=== PATIENT | male | born 1935 | race Caucasian/White ===

== ENCOUNTER → 2020-07-03 10:32 | Outpatient (CLI) | payer MEDICARE, OTHER, SELFPAY ==
--- NOTE | 2020-07-04 14:37 | PFT ---
INTRODUCTION: The patient is a 85-year-old male that presents for pulmonary function studies secondary to a diagnosis of hypoxemia. Respiratory therapy reports good patient effort. Bronchodilators were used during testing. INTERPRETATION: Forced expiration spirometry demonstrates no evidence of a large airways obstructive ventilatory defect. There was a significant response to aerosolized bronchodilators. Spirograms are of good quality and plateau normally. Body plethysmography was performed and reveals a decreased TLC to 49% of predicted. The remainder of the lung volumes are symmetrically reduced. Diffusing capacity by single breath CO is reduced to 57% of predicted. IMPRESSION: Severe restrictive ventilatory impairment with symmetric reduction in diffusing capacity. Incidental bronchodilator response was also noted.
== END ==
PROVIDERS: PCP Family Medicine; Referring Provider Internal Medicine Critical Care Medicine; Visit Provider Internal Medicine Critical Care Medicine
DX: R09.02 Hypoxemia (principal)
CPT/HCPCS: 94060; 94726; 94729

== ENCOUNTER → 2020-07-11 20:05 | Outpatient (CLI) | payer MEDICARE, OTHER, SELFPAY | PROVIDERS: PCP Family Medicine; Referring Provider Internal Medicine Critical Care Medicine; Visit Provider Internal Medicine Critical Care Medicine | DX: G47.10 Hypersomnia, unspecified (principal) | CPT/HCPCS: 95810 ==

== ENCOUNTER 2020-08-01 04:28 | Emergency (ER) | payer MEDICARE, OTHER, SELFPAY ==
[2020-07-26 14:52] VITALS: BMI 40.1
[2020-08-01 04:29] VITALS: BP 157/116; PULSE 72; RESP 16; TEMP 37.1; O2SAT 99; BMI 28.2
--- NOTE | 2020-08-01 04:56 | ED.DCSUM_ITS ---
History of Present Illness Chief Complaint: Nosebleed Informant: Patient Onset: Hours - 1-2 Context: Sudden Onset Timing: Continuous Quality: bleeding Location: left naris, followed by right Current Severity: Severe Maximum Severity: Severe Worsened by: nothing Relieved by: nothing Associated Symptoms: none. no pain or lightheadedness/syncope. Narrative: Patient is on Eliquis for atrial fibrillation, had prominent veins on the inside of the left side of his nose, seen by ENT Dr. Mendiola 3 days ago and had them cauterized due to left sided bleeding off and on for a week. This morning he woke up suddenly bleeding profusely from the nose mostly the left side. Denies any injury. - Past Medical History (1) Persistent atrial fibrillation Status: Chronic (2) Atherosclerotic heart disease of [place] coronary artery without angina pectoris Status: Chronic (3) COPD (chronic obstructive pulmonary disease) Status: Chronic (4) Chronic diastolic (congestive) heart failure Status: Chronic (5) Essential (primary) hypertension Status: Chronic (6) Hyperlipidemia Status: Chronic (7) Obstructive sleep apnea Status: Chronic Past Medical History - Allergies and Home Meds Allergies/Adverse Reactions: Allergies peanut Allergy (Verified 08/01/20 04:36) Itching levofloxacin [From Levaquin] Adverse Reaction (Verified 08/01/20 04:36) Rash Primary Care Physician: Vimal Mendiola MD [STAFF PHYSICIAN] - 2 Days (Call for appointment. Return to the ER for any major bleeding while the nasal packing is in place.) Doctors: Cardiology - Dr. Garcia; ENT - Dr. Mendiola Smoking Status: Never smoker Review of Systems General: Denies: Chills, Fever, Malaise, Sweats ENT: Reports: Rhinorrhea - nosebleed; see HPI. Denies: Sore throat Cardiovascular: Denies: Chest pain, Palpitations Respiratory: Denies: Dyspnea, Dyspnea on exertion Gastrointestinal: Denies: Abdominal pain, Nausea, Vomiting, Diarrhea Musculoskeletal: Reports: Swelling - BLE chronic. Denies: Extremity Pain Physical Exam Vital Signs/Narrative: Vital Signs Temp Pulse Resp BP Pulse Ox 08/01/20 04:29 98.7 F 72 16 157/116 H 99 Inital Vital Signs reviewed: Yes General: Well nourished, Well developed, No Acute Distress Head: Normocephalic, Atraumatic Eyes: Perrl, EOMI ENT: Moist mucous membranes, Nasal congestion, - - Moderate active bleeding from both sides of nose with large clots emanating from the left side. Lots of blood present posterior oropharynx. Neck: Supple, Nontender Respiratory: No distress Extremities: Nontender, Edema - 2+ BLE Skin: Normal color, No Trauma Neurological: Alert, Oriented x3, Cranial nerves II-XII grossly intact, Normal Strength, Normal Sensation, Normal Gait Psychological: Normal affect, Normal Mood Diagnostic/Tx/Re-eval Laboratory Tests 08/01/20 Range/Units 05:15 WBC 7.6 (4.4-11.0) K/mm3 RBC 4.51 L (4.6-6.2) M/mm3 Hgb 13.0 (13.0-16.5) g/dL Hct 39.4 L (40-54) % MCV 87.4 (80-94) fL MCH 28.8 (27.0-32.0) pg MCHC 33.0 (32-36) g/dL RDW Std Deviation 46.3 H (35.1-43.9) fl RDW Coeff of Armani 14.5 (11.6-14.6) % Plt Count 250 (150-450) K/mm3 MPV 10.1 (6.2-12.0) fl - Medical Decision Making Procedure note for epistaxis care: Attempted to get premixed Marlena solution which contained anesthetic and vasoconstrictor, however we did not have any prepared in pharmacy could send it in half an hour. Therefore we canceled that and used oxymetazoline instead, soaked in the nasal pledget, inhaled up both nares, and the pledget was placed in the left side after extensive work was done manually removing blood clots from the left side, and having the patient blow until he was able to remove everything and move air through both sides. After this, bleeding was significantly slowed and clearly just coming from the left side as there was no active bleeding from the right side which remained patent and without a nasal pledget. After letting this sit for about 10 minutes, the pledget was removed and a 5.5 cm rapid Rhino was inserted, and inflated with 8 cc of saline. Patient tolerated, no complications, good hemostasis obtained. Patient was observed for a total of an hour and had no recurrent bleeding. No posterior oropharyngeal blood after rinsing with water. Blood counts as above, stable as are his vital signs. Discussed reasons to return and follow-up with ENT. At this time I recommended him continue to take his Eliquis until he is told otherwise by his coffee machine technician and/or public safety officer. ED Disposition - Plan for ED Patient: Disposition: Home or Assisted Living Diagnosis: Acute anterior epistaxis Instructions: ED Epistaxis (Adult) Referrals: Vimal Mendiola MD [STAFF PHYSICIAN] - 2 Days (Call for appointment. Return to the ER for any major bleeding while the nasal packing is in place.)
[2020-08-01 05:20] LABS: Hematocrit 39.4 % (40-54); Mean Corpuscular Hgb 28.8 pg (27.0-32.0); Mean Corpuscular Volume 87.4 fL (80-94); Mean Platelet Vol. 10.1 fl (6.2-12.0); Platelet Count 250 K/mm3 (150-450); RBC Distribution Width CV 14.5 % (11.6-14.6); RBC Distribution Width SD 46.3 fl (35.1-43.9); Red Blood Count 4.51 M/mm3 (4.6-6.2); White Blood Count 7.6 K/mm3 (4.4-11.0)
[2020-08-01 05:25] VITALS: RESP 18
[2020-08-01] MEDS: Oxymetazoline 0.05% 1 SPRAY SPRAY.BTL 2 SPRAY NASAL (05:31)
== END 2020-08-01 06:23 | disposition home or self-care (01) ==
PROVIDERS: Emergency Provider Emergency Medicine; PCP Family Medicine
DX: R04.0 Epistaxis (principal); I48.19 Other persistent atrial fibrillation; I25.10 Atherosclerotic heart disease of native coronary artery without angina pectoris; J44.9 Chronic obstructive pulmonary disease, unspecified; I11.0 Hypertensive heart disease with heart failure; I50.32 Chronic diastolic (congestive) heart failure; E78.5 Hyperlipidemia, unspecified; Z79.02 Long term (current) use of antithrombotics/antiplatelets; Z79.899 Other long term (current) drug therapy
CPT/HCPCS: 30903; 85027; 99282

== ENCOUNTER → 2020-08-09 06:52 | Outpatient (CLI) | payer MEDICARE, OTHER, SELFPAY ==
[2020-07-26 14:52] VITALS: BMI 40.1
[2020-08-01 04:29] VITALS: BMI 28.2
[2020-08-09 10:51] LABS: Anion Gap 4 (5-15); BUN 22 mg/dL (7-18); BUN/Creat Ratio 21.2 RATIO (10-20); Calcium,Total 9.1 mg/dL (8.5-10.1); Chloride 101 mmol/L (98-107); Creatinine, Serum 1.04 mg/dL (0.70-1.30); EST Glomerular Filtration Rate 72 mL/min (>60); Est Glom Filt Rate - Afr Amer 88 mL/min (>60); Glucose 116 mg/dL (74-106); Potassium 4.2 mmol/L (3.5-5.1); Sodium Level 133 mmol/L (136-145)
--- NOTE | 2020-08-09 18:39 | STRESSREP ---
Stress Test Report Pharmacologic myocardial perfusion stress test. 85-year-old man with a history of hypertension, coronary calcification and heart failure. Stress protocol: Resting EKG demonstrates atrial fibrillation with a controlled ventricular response rate of 71 bpm. Resting blood pressure is 140/88 mmHg. 0.4 mg of regadenoson was infused per usual protocol followed by rapid intravenous saline flush injection continuous EKG monitoring was performed. The maximum heart rate attained was 82 bpm which was 59% of max impacted heart rate the maximum workload was 1 metabolic equivalent. At rest there were no ST or T wave changes noted to suggest abnormal flow reserve at peak infusion nonspecific ST-T wave changes were noted with no meet the criteria for abnormal flow reserve. The final blood pressure was 110/80 mmHg. Myocardial perfusion protocol. 14.8 mCi of technetium 99m sestamibi was injected at rest. 0.4 mg of regadenoson was infused per usual protocol. At peak infusion 44.9 mCi of technetium 99m sestamibi was injected stress images were obtained stress and rest images were reconstructed and compared in the short axis vertical long horizontal long axis. Gated images were also obtained Perfusion SPECT analysis: Review of the stress images demonstrate a small area in the apex with reduced perfusion on the stress images with improvement on the resting images. The above is suggestive of apical ischemia present. The rest of the masters appear to be normally perfused. Gated SPECT analysis: The gated ejection fraction is 42%. Conclusion: Abnormal pharmacologic myocardial perfusion stress test with evidence of apical ischemia. Mildly reduced left ventricular systolic function. Atrial fibrillation persistent.
== END ==
PROVIDERS: PCP Family Medicine; Referring Provider Internal Medicine Cardiovascular Disease; Visit Provider Internal Medicine Cardiovascular Disease
DX: I25.10 Atherosclerotic heart disease of native coronary artery without angina pectoris (principal); I48.19 Other persistent atrial fibrillation; I50.32 Chronic diastolic (congestive) heart failure; I48.91 Unspecified atrial fibrillation
CPT/HCPCS: 36415; 78452; 80048; 93017; A9500; A4216; J2785

== ENCOUNTER 2020-08-17 06:30 | Day surgery (SDC) | payer MEDICARE, OTHER, SELFPAY ==
[2020-08-14 15:05] LABS: Absolute Lymphocyte Count 0.87 X10^3/uL (0.83-4.51); Basophil# 0.09 X10^3/uL; Basophil% 1.6 % (0-1); Eosinophil# 0.16 X10^3/uL; Eosinophils% 2.8 % (0-5); Hematocrit 35.3 % (40-54); Hemoglobin 11.1 g/dL (13.0-16.5); Lymphocyte # 0.87 X10^3/ul (4.0); Lymphocyte % 15.2 % (19-41); Mean Corp Hgb Conc 31.4 g/dL (32-36); Mean Corpuscular Volume 89.1 fL (80-94); Mean Platelet Vol. 10.1 fl (6.2-12.0); Monocyte# 0.63 X10^3/uL; NRBC Flagged by Analyzer 0 % (0-5); Neutrophil # 3.97 X10^3/uL (2.7-7.7); Neutrophil % 69.1 % (47-70); Platelet Count 241 K/mm3 (150-450); RBC Distribution Width CV 14.6 % (11.6-14.6); RBC Distribution Width SD 47.4 fl (35.1-43.9); Red Blood Count 3.96 M/mm3 (4.6-6.2); White Blood Count 5.7 K/mm3 (4.4-11.0)
[2020-08-14 15:10] LABS: International Normalized Ratio 1.2; Prothrombin Time (Protime)PT. 14.5 SECONDS (11.7-14.9)
[2020-08-14 15:11] LABS: Partial Thromboplast Time 29.4 Seconds (24.1-36.2)
[2020-08-14 15:42] LABS: Anion Gap 7 (5-15); BUN 22 mg/dL (7-18); BUN/Creat Ratio 22.3 RATIO (10-20); Calcium,Total 8.8 mg/dL (8.5-10.1); Chloride 103 mmol/L (98-107); Creatinine, Serum 0.99 mg/dL (0.70-1.30); EST Glomerular Filtration Rate 77 mL/min (>60); Est Glom Filt Rate - Afr Amer 93 mL/min (>60); Glucose 71 mg/dL (74-106); Potassium 4.3 mmol/L (3.5-5.1); Sodium Level 135 mmol/L (136-145)
[2020-08-16 08:37] VITALS: BMI 40.1
[2020-08-17] VITALS (16 sets, daily range): BP systolic 108–146; BP diastolic 70–96; PULSE 53–91; RESP 18–20; TEMP 36.1–36.7; O2SAT 94–100; BMI 40.1; BMI 40.2
--- NOTE | 2020-08-17 06:39 | HP_ITS ---
HPI HPI History of Present Illness Details: Pleasant 85-year-old man with no previous cardiac history of hypertension, hyperlipidemia, obstructive sleep apnea, coronary calcification who presented to the emergency room at [facility] with shortness of breath leg swelling hypoxia requiring BiPAP. Troponin was done which was unremarkable and a BT [employer] was done which was elevated. He was treated with antibiotics and subsequently discharged. It appears on reviewing the records that he was in atrial fibrillation when he presented there with a rate of approximately 85 bpm and premature ventricular complexes were noted. His echocardiogram then demonstrated biatrial enlargement, and ejection fraction of 50 to 55%. He was getting worse at home and so his took him to see the hospice patient care secretary who started him on a diuretic. He apparently has been short of breath with edema since last January. He is denied any chest pain. He has had no dizziness or diaphoresis near syncope or syncope. His physical exam today is significant for reduced air entry bilaterally, irregular heart rate, and 1+ pitting edema. Intake Vital Signs 07/26/20 Height 5 ft 11 in 07/26/20 Weight: 288 lb 07/26/20 BMI 40.1 07/26/20 BP 130/87 H 07/26/20 Respiration 22 H 07/26/20 Pulse 76 07/26/20 Pulse Oximetry (%) 99 Intake Visit Reasons: Pulm ref'd for CHF Allergies peanut Allergy (Verified 07/26/20 08:30) Itching levofloxacin [From Levaquin] Adverse Reaction (Verified 07/26/20 08:30) Rash Medications Finasteride [Proscar] 5 mg PO DAILY 05/18/14 [History Confirmed 05/18/14] Saw [place] Fruit [Saw [place]] 900 mg PO DAILY 05/18/14 [History Confirmed 05/18/14] atorvastatin 20 mg tablet 20 mg PO DAILY 06/27/20 [History] cholecalciferol (vitamin D3) 25 mcg (1,000 unit) capsule 25 mcg PO DAILY 06/27/20 [History] coenzyme Q10 75 mg capsule See Rx Instructions PO DAILY cap 06/27/20 [History] spironolactone 50 mg tablet 50 mg PO DAILY 06/27/20 [History] vit C 250 mg-E 200 unit-zinc 40 mg-copper 1 jj-dkpidh-ohdins capsule 1 tab PO ONCE cap 06/27/20 [History] lisinopril 10 mg tablet 10 mg PO DAILY 06/29/20 [History Confirmed 06/29/20] apixaban 5 mg tablet 5 mg PO BID #60 tab 07/26/20 [Rx Confirmed 07/26/20] aspirin 81 mg tablet,delayed release 81 mg PO DAILY 07/26/20 [History] furosemide 40 mg tablet 40 mg PO BID #90 tab 07/26/20 [Rx Confirmed 07/26/20] metoprolol succinate 50 mg tablet,extended release 24 hr 50 mg PO DAILY #90 tab 07/26/20 [Rx Confirmed 07/26/20] Ejection fraction %: 50 to 54 [facility] Medical History Atherosclerotic heart disease of [place] coronary artery without angina pectoris (Chronic) Chronic diastolic (congestive) heart failure (Chronic) Essential (primary) hypertension (Chronic) Hyperlipidemia (Chronic) COPD (chronic obstructive pulmonary disease) (Chronic) Obstructive sleep apnea (Chronic) Hypersomnia (Chronic) Hypoxia (Chronic) BPH with urinary obstruction (Chronic) Diverticulitis (Chronic) Hiatal hernia (Chronic) Leg swelling (Chronic) Renal cyst (Chronic) Surgical History History of cataract surgery (Resolved) History of colonoscopy with polypectomy (Resolved) History of orchiectomy (Resolved) History of transurethral resection of prostate (Resolved) Family History Other No pertinent family history Social History (Updated 07/26/20 @ 15:[address] Fabio Garcia MD) Smoking Status: Never smoker ROS Const Const: Negative for fatigue, weakness, headache(s), frequent falls, difficulty sleeping or excessive sweating Eyes Eyes: Negative for loss of peripheral vision, transient loss of vision, blurry vision, double vision or tunnel vision ENT ENT: Positive for Nosebleed/epistaxis (10 nose bleeds since Jun 25 2020); negative for headache(s), dizziness or balance problems Cardio Chest Pain: No Palpitations: No Edema: Bilateral (BLE edema drom knees down 1+ pitting) Muscle aches with walking: None Resp Respiratory: Positive for SOB with activity and wheezing; negative for SOB at rest, SOB orthopnea\SOB lying down, Cough or paroxysmal nocturnal dyspnea GI GI: Negative nausea, vomiting, heartburn or black,tarry stools : Negative for hematuria Musc Musc: Negative for muscle aches/ myalgia, muscle weakness, joint pain or balance problems Skin Skin: Negative non-healing lesions, rash or unusual bruising Neuro Neuro: Negative for dizziness, lightheadedness, near syncope, syncope, orthostatic symptoms, frequent falls, headache(s), weakness, blurry vision, double vision or lack of coordination [place] Hematologic/Lymphatic: Negative for easy bleeding or easy bruising Endo Endo: Negative for fatigue, excessive sweating or increased thirst/drinking Psych Psych: Negative for anxiety or depression Allergy Allergy/Immunology: Negative for hives, Negative for rash Cardiology Exam Const Appearance: cooperative, healthy appearing, no acute distress, well developed and well groomed Nutritional Appearance: average body habitus and well nourished Orientation: alert, awake and oriented x3 Head Head: normal to inspection, normocephalic and atraumatic Ears: hearing grossly normal bilaterally and external ears normal Nose: external nose normal, nares normal, nasal mucous membranes and turbinates normal, septum normal, no nasal discharge Face and Sinus: face symmetric Mouth: oral mucosae normal, tongue normal, oropharynx normal and moist mucous membranes Teeth and gingiva: dentition normal Throat: posterior oropharynx normal, tonsils normal and uvula midline Eyes General: appearance normal, both eyes and all related structures Eyelids: eyelids normal Conjunctivae: conjunctivae normal Pupils: PERRL, normal by confrontation and accommodation normal EOM: EOM intact bilaterally Neck Neck: normal visual inspection, trachea midline and no JVD JVD: +5 Carotids: normal carotid upstroke and bounding pulses Chest Chest inspection: normal inspection of the chest, symmetric chest movement and normal respiratory effort Auscultation: Bilateral: Clear to Auscultation Cardio Palpation: normal PMI Rate: regular rate Rhythm: irregular rhythm Heart sounds: S1 normal, S2 normal and normal, physiologic split S2; negative rub, gallop or murmur GI GI: normal to inspection, soft, no hepatosplenomegaly and bowel sounds present Neuro General: alert, awake, oriented x3, gait normal, moves all extremities and no focal sensory deficit Skin Skin: no rashes or lesions noted Extremities Pulses: Normal: Right Femoral Pulse, Left Femoral Pulse, Right Dorsalis Pedis Pulse, Left Dorsalis Pedis Pulse, Right Posterior Tibial Pulse, Left Posterior Tibial Pulse, Right Radial Pulse, Left Radial Pulse Lower Extremity Edema: +2: Bilateral Musculoskel Musculoskeletal: No joint tenderness Psych Psychological: normal affect Assessment & Plan 1. Persistent atrial fibrillation I48.19 Plan He appears to be in persistent atrial fibrillation. He was in this rhythm when he presented to [facility]. His ventricular response rate is not very well controlled I would recommend that we add a beta-parag with Toprol-XL 50 mg a day to his regimen as well as anticoagulating him with Eliquis 5 mg twice a day. Orders Orders: Basic Metabolic Profile (BMP) 2 Weeks 2. Chronic diastolic (congestive) heart failure I50.32 Plan He does have evidence of diastolic heart failure. His last echocardiogram apparently demonstrated preserved ejection fraction though it was a suboptimal study. My recommendation will be to increase his diuretics with his Lasix to 40 mg twice a day, continue the spironolactone, obtain a chemistry profile in a week to 2 weeks. Salt restriction has also been emphasized. Orders Orders: 12 Lead EKG performed by [facility] Today Basic Metabolic Profile (BMP) 2 Weeks 3. Essential (primary) hypertension I10 Plan He does have a history of hypertension. I would like us to continue the lisinopril and add Toprol-XL 50 mg a day to his regimen. Orders Orders: 12 Lead EKG performed by [facility] Plan Detail Other Orders Orders: 12 Lead EKG performed by [facility] E78.5, I25.10 Nuclear Stress Test - Chemical 2 Weeks I25.10 Other Medications New: furosemide (Lasix) 40 mg PO BID 90 tabs 4RF metoprolol succinate ER (Toprol XL) 50 mg PO DAILY 90 tabs 3RF apixaban (Eliquis) 5 mg PO BID 60 tabs 3RF Discontinued: furosemide Discontinued Reason: Order Changed 20 mg PO BID Follow Up 1 Month ([facility]) Coding Level of Care Code Off vis,new,level 5 Diagnoses Persistent atrial fibrillation I48.19 Chronic diastolic (congestive) heart failure I50.32 Essential (primary) hypertension I10 Coding Level of Care Code Off vis,new,level 5 Diagnoses Persistent atrial fibrillation I48.19 Chronic diastolic (congestive) heart failure I50.32 Essential (primary) hypertension I10 Supplemental Info Supplemental Information Diagnostics Electrocardiogram 07/26/20 Pulmonary Pulmonary Function Test 07/04/20
--- NOTE | 2020-08-17 08:38 | CL.D_ITS ---
Patient Name: SCARLETT STEVENS Study Date: 08/17/2020 Performing: Fabio Garcia MD Ht: 70.87 inches 180 cm : 1935 Wt: 288.81 lbs 131 kg Age: 85 Gender: male BSA: 2.46 PROCEDURE(S) PERFORMED [id number]-FZO/COR/LV [id number] W OR WO PTCA, SINGLE CORONARY ARTERY CLINICAL PROFILE AND INDICATIONS NYHA class 1, Shortness of breath is the anginal equivalent Indications: Suspected CAD Heart Failure: None Stress/Imaging Date: 08/07/20ress Test with SPECT MPI: Positive Intermediate Risk CAD Presentations: No Sxs, no angina. CONCLUSIONS Moderate left main disease, moderate LAD disease, and high-grade mid right coronary artery stenosis w ith preserved ejection fraction RECOMMENDATIONS Referred for immediate PCI DESCRIPTION OF PROCEDURE The patient arrived to the procedure lab. The risks and benefits of the procedure as well as a full d escription of our services here and current unavailability of surgical backup were fully explained to the patient and/or their significant other prior to the catheterization. The Timeout was completed, verifying the correct patient and procedure. The patient's procedural site was prepped and draped in the usual fashion. Local anesthetic was given subcutaneously to right radial region with Lidocaine 2% . Using a modified Seldinger technique, arterial access was obtained via the right radial artery, a 6 Fr sheath was inserted. Left Coronary Artery selective angiography was performed in multiple views u sing a 5 Fr. 4.0 [place] catheter. Right Coronary Artery selective angiography was then performed in mu ltiple views using a 5 Fr. 4.0 [place] catheter. Left Ventriculography was performed in MOYA projection using a 5 Fr. Pigtail catheter. LV to AO pullback pressures were then recorded.The arterial sheath was pulled and a TR Band was applied for hemostasis CORONARY ANGIOGRAPHY DOMINANCE: Right Dominant LEFT HEART ASSESSMENT Left Ventricular Ejection Fraction: by LV Gram 55 % Normal LV wall motion Normal Left Ventricular systolic function LEFT MAIN: Mild calcification, 30 % Stenosis LEFT ANTERIOR DESCENDING ARTERY: Moderate luminal irregularities up to 50% CIRCUMFLEX ARTERY: Mild luminal irregularities less than 30% RAMUS: Mild luminal irregularities less than 30% RIGHT CORONARY ARTERY: MID RCA: 95 % Stenosis COMPLICATIONS No Complications PROCEDURE MEDICATIONS Fentanyl 50 mcg IV Versed 1 mg IV Oxygen: 2 L/min via nasal cannula Brilinta 180 mg PO @ 08/17/2020 08:20:06 Heparin diluted in 23cc Heparinized saline. Patient given 10cc IA of this solution. 08/17/2020 08:03: 05 Heparin 9000 unit(s) IV 08/17/2020 09:03:55 Verapamil 2.5mg, Ntg 100mcgs, 2000 units of Heparin diluted in 23cc Heparinized saline. Patient give n 10cc IA of this solution. 08/17/2020 08:03:05 IV Bolus: .9 NaCl 250 ml total 08/17/2020 09:27:43 SUMMARY OF HEMODYNAMIC DATA Time AIR REST ECG 07:06:39 AO 98/56 (75) SA 08:02:58 LV 118/11, 13 08:15:24 LV 100/7, 16 08:15:31 LV 108/8, 15 08:16:31 LVp 110/13, 16 08:16:35 AOp 118/65 (90) 08:16:40 Signed By Fabio Garcia MD On 08/24/2020 3:04:44 PM Fabio Garcia MD
[2020-08-17] MEDS: 0.9% Normal Saline 1,000 ML 100 ML IV (09:45)
--- NOTE | 2020-08-17 11:56 | CRPHASE1 ---
Patient Communication Former Patient:: Phase I PHII Cardiac Rehab Discussed with Patient:: Yes Guide to Cardiac Rehab Given to Patient:: Yes Cardiac Rehab Facility Choice List Given to Patient:: Yes Choice Program [facility] CR PHII:: Communication Given to CR Clinical Reimbursement Specialist:: Sushil Devries Phase II Cardiac Rehab:: Yes Sessions:: 36 sessions - 3 days/wk, 12 weeks Risk Factors/Lifestyle Smoking Status: Former smoker Second-Hand Smoke:: No Hx Hypertension: Yes Hx Diabetes Mellitus Type 1: No Hx Diabetes Mellitus Type 2: No Hx Metabolic Disorders: No Hx Dyslipidemia: Yes Hx Obesity: Yes Post-Menopausal: No ETOH: No Caffeine: No Substance Abuse: No Risk Factor for Sedentary Lifestyle: Moderate Risk Family History: Family History (Last Reviewed 07/26/20 @ 15:[address] Fabio Garcia MD) Other No pertinent family history Past Cardiac Illness: CHF, Ejection Fraction, Coronary Artery Disease, Other - A Fib Phase I Education Given On:: Planada, Nutrition, Antiplatelet medication, CHF Issues Affecting Care:: Cognitive, Hearing Knowledge of Condition:: No Learning Preferences: Verbal Cardiac Rehabilitation Info Cardiac Rehabilitation Program Information: Cardiac Rehabilitation is important for patients like you who are recovering from a heart problem. Cardiac rehabilitation programs are recognized as integral to the continued care of the patient with coronary heart disease. The cardiac rehabilitation program is designed to optimize a patient's physical, psychological, and social functioning. Health pediatric critical care nurse work in cardiac rehabilitation programs and assist you with getting the treatments you need to get stronger and healthier - like exercise, healthy eating habits, and medications. Cardiac rehabilitation has been show to help people with heart problems live longer and have better life enjoyment than people who do not go to cardiac rehabilitation. Please contact the Cardiac Rehabilitation Program at [facility] at in two weeks if you have not heard from them.
--- NOTE | 2020-08-17 11:59 | CRPH1.INSTRU ---
General Education CAD and cardiac anatomy and function:: Patient communicates acknowledgment, Family communicates acknowledgment, Needs reinforcement Explanation of diagnoses and procedures:: Patient communicates acknowledgment, Family communicates acknowledgment, Needs reinforcement Sign/Symptoms of OR:: Patient communicates acknowledgment, Family communicates acknowledgment, Family returns demonstration, Needs reinforcement Antiplatelet therapy: Patient communicates acknowledgment, Family communicates acknowledgment, Family returns demonstration, Needs reinforcement Proper use of NTG-SL: Patient communicates acknowledgment, Family communicates acknowledgment, Family returns demonstration, Needs reinforcement Emergency procedures and activation of EMS: Patient communicates acknowledgment, Family communicates acknowledgment, Family returns demonstration, Needs reinforcement Compliance of all prescribed medications: Patient communicates acknowledgment, Family communicates acknowledgment, Family returns demonstration, Needs reinforcement Smoking Patient Nicotine/Smoking Risk Factors Are:: Non-smoker Recommendations Include:: Previous smoker; encourage continued cessation Nicotine/Smoking Response Code:: Patient communicates acknowledgment Dyslipidemia Patient Dyslipidemia Risk Factors Are:: Total Cholesterol, Triglycerides, HDL, LDL Recommendations Include:: Lipid profile not available, Reviewed NCEP/ATP guidelines, Therapeutic Lifestyle Change dietary guidelines Dyslipidemia Response Code:: Patient communicates acknowledgment Overweight/Obesity Patient Overweight/Obesity Risk Factors Are:: Obesity - > or = 30 Recommendations Include:: Weight loss of 5-10%, Reduced calorie diet, Exercise 5-7 times/week Overweight/Obesity:: Patient communicates acknowledgment, Family communicates acknowledgment, Family returns demonstration, Needs reinforcement Hypertension Recommendations Include:: Maintain BP <130/85, DASH dietary guidelines, Decrease/maintain normal body weight, Moderation of ETOH Hypertension:: Patient communicates acknowledgment, Family communicates acknowledgment, Family returns demonstration, Needs reinforcement Sedentary Patient Sedentary Risk Factors Are:: Lack of regular exercise Recommendations Include:: Aerobic exercise 5-7 times/week for 20-30 minutes continuously, Benefits of regular exercise, Discussed home walking program, Monitored Outpatient Cardiac Rehab Sedentary Response Code:: Patient communicates acknowledgment Stress Patient Stress Risk Factors Are:: Patient denies stress as a risk factor Recommendations Include:: Identification of stressors, and assessment of coping skills, Stress management techniques Stress Response Code:: Patient communicates acknowledgment, Family communicates acknowledgment, Needs reinforcement
--- NOTE | 2020-08-17 13:42 | EKG12_ITS ---
Test Reason : ADMITT PCU Blood Pressure : / mmHG Vent. Rate : 061 BPM Atrial Rate : 079 BPM P-R Int : 000 ms QRS Dur : 128 ms QT Int : 476 ms P-R-T Axes : 000 -69 110 degrees QTc Int : 479 ms Atrial fibrillation with premature ventricular or aberrantly conducted complexes Left axis deviation Non-specific intra-ventricular conduction block Nonspecific T wave abnormality Abnormal ECG Confirmed by MEDINA ONTIVEROS, NATALYA ([id number]), market editor JONATHAN YANG ([id number]) on 08/24/2020 7:31:41 AM Referred By: Natalya Garcia Confirmed By:NATALYA GARCIA MD
[2020-08-17] MEDS: CLARIFY ORDER NOTE (16:44)
[2020-08-17] MEDS: Furosemide 40 MG Tablet PO (20:54)
[2020-08-17] MEDS: Atorvastatin Calcium 20 MG Tablet PO (20:54)
[2020-08-17] MEDS: TICAGRELOR 90 MG TABLET PO (20:54)
[2020-08-18 02:50] VITALS: BP 149/74; PULSE 86; RESP 18; TEMP 36.7; O2SAT 99
[2020-08-18 03:00] VITALS: PULSE 72
[2020-08-18 06:19] LABS: Hematocrit 33.9 % (40-54); Mean Corp Hgb Conc 32.4 g/dL (32-36); Mean Corpuscular Hgb 28.1 pg (27.0-32.0); Mean Corpuscular Volume 86.7 fL (80-94); Mean Platelet Vol. 9.9 fl (6.2-12.0); Platelet Count 216 K/mm3 (150-450); RBC Distribution Width CV 14.5 % (11.6-14.6); RBC Distribution Width SD 46.4 fl (35.1-43.9); Red Blood Count 3.91 M/mm3 (4.6-6.2); White Blood Count 7.7 K/mm3 (4.4-11.0)
[2020-08-18 06:46] LABS: ALB/GLOB Ratio 0.9 RATIO (0.9-2.4); AST(SGOT) 21 U/L (15-37); Alanine Aminotransfer ALT/SGPT 22 U/L (16-61); Albumin, Serum 3.3 g/dL (3.2-5.0); Alkaline Phosphatase 127 U/L (45-117); Anion Gap 8 (5-15); BUN 19 mg/dL (7-18); BUN/Creat Ratio 19.5 RATIO (10-20); Calcium,Total 8.7 mg/dL (8.5-10.1); Chloride 104 mmol/L (98-107); Creatinine, Serum 0.98 mg/dL (0.70-1.30); EST Glomerular Filtration Rate 78 mL/min (>60); Est Glom Filt Rate - Afr Amer 94 mL/min (>60); Estimated Creatinine Clearance 60.83 ml/min; Globulin 3.6 g/dL (2.2-4.2); Glucose 102 mg/dL (74-106); Protein, Total 6.9 g/dL (6.4-8.2); Sodium Level 134 mmol/L (136-145)
[2020-08-18 07:00] VITALS: PULSE 76
[2020-08-18 07:07] VITALS: O2SAT 98
--- NOTE | 2020-08-18 07:42 | PN.CARD_ITS ---
Subjectve: Patient was seen and evaluated. Appears to be doing well. No complaints. Feels much better this morning. Objective: Vital Signs Temp Pulse Resp BP Pulse Ox 98.1 F 72 18 149/74 H 99 08/18/20 02:50 08/18/20 03:00 08/18/20 02:50 08/18/20 02:50 08/18/20 02:50 Oxygen Delivery Method Room Air Weight: 267 lb 10.259 oz Body Mass Index (BMI) 40.1 Intake and Output for Last 24 Hours 08/16/20 08/17/20 08/18/20 23:59 23:59 23:59 Intake Total 1680 / 1680 120 / 120 Output Total 1050 / 1050 1125 / 1125 Balance 630 / 630 -1005 / -1005 General: Awake, Alert, Oriented x 3 HEENT: PERRL, EOMI, Sclera Non Icteric Neck: Supple, Good ROM, No Lymph Node Enlargement Lungs: Clear to auscultation Cardiovascular: Irregular Rhythm, Normal S1, Normal S2, No Murmurs, No Rubs, No Gallops Vascular: No Carotid Bruits, Normal Femoral Pulses, Normal Radial Pulses, Normal Dorsalis Pedal Pulse, Normal Posterior Tibial Pulses Abdomen: Bowel Sounds Present, Soft, Non Tender, No HSM, No Organomegaly Extremities: No Cyanosis, No Clubbing, No edema Musculoskeletal: No Erythema Neurological: No Focal Motor or Sensory Deficit 08/18/20 06:04: WBC 7.7, RBC 3.91 L, Hgb 11.0 L, Hct 33.9 L, MCV 86.7, MCH 28.1, MCHC 32.4, Plt Count 216, MPV 9.9 08/18/20 06:04: Sodium 134 L, Potassium 4.0, Chloride 104, Carbon Dioxide 22.0, Anion Gap 8, BUN 19 H, Creatinine 0.98, Est GFR (MDRD) Af Amer 94, Est GFR (MDRD) Non-Af 78, BUN/Creatinine Ratio 19.5, Glucose 102, Calcium 8.7, Total Bilirubin 1.30 H Rhythm: EKG: ECHO: Stress Test: Cardiac Cath: PCI: CT Surgery: Holter monitor: EPS: PPM: CXR: Chest CT Scan: Medical Necessity - Tobacco Use Smoking Status: Former smoker Assessment/Plan 1. Status post angioplasty and stenting of the right coronary artery. * Plan will be to discharge patient on aspirin, clopidogrel, Eliquis. We will try and do clopidogrel together with aspirin for at least 6 weeks and then perhaps discontinue aspirin and continue clopidogrel and Eliquis. * Continue other medications * Start cardiac rehabilitation.
--- NOTE | 2020-08-18 08:38 | DCINST_ITS ---
Discharge Diet: Low fat/ Low Cholesterol Lifting Restrictions: 10 pounds and also avoid any pushing or pulling for 3 days after your test. Additional Activity Instructions:: You must have someone drive you home. Do not drive until instructed by your doctor. You must have someone stay with you all night after your test. Rest in bed or on the couch until the next morning. Limit the number of times you go up and down stairs the day of your test. Apply pressure to the puncture site if you sneeze or cough. Call your doctor if your incision/area has: Increased Pain/ Swelling, Increased Redness, Foul Smelling Discharge, Swelling at the incision site Call your doctor if you observe: Fever of 101 or Higher Additional Dressing/Incision Instructions:: Keep the dressing (bandage) on until the next morning. You may then shower, but do not take a tub bath for 5 days after your test. It is normal to have some tenderness and discomfort at the puncture site. Sometimes bruising also occurs. However, if pain, numbness, or coldness occurs below the puncture site (in your leg, toes, arms or fingers) call your doctor at once. You may have a small, marble sized knot at the puncture site. This is normal. Do not rub it. It will go away in 4-6 weeks. Bleeding can occur from the area where the puncture was done. Blood may spurt or drip from the site. If blood spurts, apply pressure right away to stop bleeding and call 911. Although rare, bleeding into the tissue (hematoma) can also occur. If this happens, a large, firm area goose egg under the skin will appear. If any of these occur, lie down as flat as you can and have someone apply firm pressure to the cath site with a gauze pad or a clean washcloth for 10-15 minutes. Call 911 or go to the Emergency Department. Allergies/Adverse Reactions: Allergies peanut Allergy (Verified 08/01/20 04:36) Itching levofloxacin [From Levaquin] Adverse Reaction (Verified 08/01/20 04:36) Rash Medications to take at Discharge Finasteride [Proscar] 5 mg PO DAILY 05/18/14 Saw [place] Fruit [Saw [place]] 900 mg PO DAILY 05/18/14 atorvastatin 20 mg tablet 20 mg PO DAILY 06/27/20 cholecalciferol (vitamin D3) 25 mcg (1,000 unit) capsule 25 mcg PO DAILY 06/27/20 coenzyme Q10 75 mg capsule See Rx Instructions PO DAILY cap 06/27/20 vit C 250 mg-E 200 unit-zinc 40 mg-copper 1 [id number]-ydtzce capsule 1 tab PO DAILY cap 06/27/20 lisinopril 10 mg tablet 10 mg PO DAILY 06/29/20 albuterol sulfate 2.5 mg INHALATION Q4H PRN 07/26/20 apixaban 5 mg tablet 5 mg PO BID #60 tab 07/26/20 aspirin 81 mg tablet,delayed release 81 mg PO DAILY 07/26/20 furosemide 40 mg tablet 40 mg PO BID #90 tab 07/26/20 metoprolol succinate 50 mg tablet,extended release 24 hr 50 mg PO DAILY #90 tab 07/26/20 spironolactone 50 mg tablet 50 mg PO DAILY #90 tab 08/14/20 Clopidogrel Bisulfate [Plavix] 75 mg PO DAILY #90 tab 08/18/20 The following prescriptions were given: Clopidogrel Bisulfate [Plavix] 75 mg PO DAILY #90 tab Transmission Status: Pending to [facility]44 Orders to be completed after discharge: Phase II, Outpatient Cardiac Rehab Location: None Selected Primary Care Physician: Chuck Paulino MD [Primary Care Provider] - Test Results: Test results from this visit will be discussed in further detail at your follow- up appointment, if applicable. Proposed Discharge Date: 08/18/20 Cardiac Rehabilitation Info Cardiac Rehabilitation Program Information: Cardiac Rehabilitation is important for patients like you who are recovering from a heart problem. Cardiac rehabilitation programs are recognized as integral to the continued care of the patient with coronary heart disease. The cardiac rehabilitation program is designed to optimize a patient's physical, psychological, and social functioning. Health home care scheduler work in cardiac rehabilitation programs and assist you with getting the treatments you need to get stronger and healthier - like exercise, healthy eating habits, and medications. Cardiac rehabilitation has been show to help people with heart problems live longer and have better life enjoyment than people who do not go to cardiac rehabilitation. Please contact the Cardiac Rehabilitation Program at [facility] at in two weeks if you have not heard from them.
[2020-08-18 08:50] VITALS: BP 135/73; PULSE 71; RESP 16; TEMP 36.6; O2SAT 98
--- NOTE | 2020-08-18 09:10 | PCS.PANDOC ---
PANDEMIC DOCUMENTATION INITIATED: Date: 08/17/20 Time: 944
[2020-08-18] MEDS: APIXABAN 5 MG TABLET PO (09:20)
[2020-08-18] MEDS: Aspirin E.C. 81 MG Tablet PO (09:20)
[2020-08-18] MEDS: Spironolactone 50 MG Tablet PO (09:20)
[2020-08-18 09:21] VITALS: PULSE 71
[2020-08-18] MEDS: Furosemide 40 MG Tablet PO (09:21)
[2020-08-18] MEDS: Clopidogrel Bisulfate 75 MG Tablet PO (09:21)
[2020-08-18] MEDS: Finasteride 5 MG Tablet PO (09:21)
[2020-08-18] MEDS: Metoprolol(XL)Succ 50 MG Tablet PO (09:21)
[2020-08-18] MEDS: Lisinopril 10 MG Tablet PO (09:21)
--- NOTE | 2020-08-18 09:42 | PHA.DC.MC ---
Pharmacy Service has performed discharge medication reconciliation and counseling for this patient. 1. CLOPIDOGREL 75MG PO DAILY The patient's discharge medication list was reviewed for discrepancies and discrepancies were resolved. Home Medications Finasteride [Proscar] 5 mg PO DAILY 05/18/14 Saw [place] Fruit [Saw [place]] 900 mg PO DAILY 05/18/14 atorvastatin 20 mg tablet 20 mg PO DAILY 06/27/20 cholecalciferol (vitamin D3) 25 mcg (1,000 unit) capsule 25 mcg PO DAILY 06/27/20 coenzyme Q10 75 mg capsule See Rx Instructions PO DAILY cap 06/27/20 vit C 250 mg-E 200 unit-zinc 40 mg-copper 1 qo-pfkmua-tfxbhf capsule 1 tab PO DAILY cap 06/27/20 lisinopril 10 mg tablet 10 mg PO DAILY 06/29/20 albuterol sulfate 2.5 mg INHALATION Q4H PRN 07/26/20 apixaban 5 mg tablet 5 mg PO BID #60 tab 07/26/20 aspirin 81 mg tablet,delayed release 81 mg PO DAILY 07/26/20 furosemide 40 mg tablet 40 mg PO BID #90 tab 07/26/20 metoprolol succinate 50 mg tablet,extended release 24 hr 50 mg PO DAILY #90 tab 07/26/20 spironolactone 50 mg tablet 50 mg PO DAILY #90 tab 08/14/20 Clopidogrel Bisulfate [Plavix] 75 mg PO DAILY #90 tab 08/18/20 The patient was counseled on the following discharge medications and changes in medications for homegoing were reviewed. The Reason for Use, instructions for use, and potential side effects were reviewed for all new medications. The patient's questions regarding all of their medications were answered. The patient was able to verbally demonstrate an understanding of their discharge medications. Patient counseled by pharmacy sales assistant
--- NOTE | 2020-08-18 10:00 | EKG12_ITS ---
Test Reason : AM EKG Blood Pressure : / mmHG Vent. Rate : 082 BPM Atrial Rate : 079 BPM P-R Int : 000 ms QRS Dur : 122 ms QT Int : 442 ms P-R-T Axes : 000 -70 077 degrees QTc Int : 516 ms Atrial fibrillation Left axis deviation Left bundle branch block Abnormal ECG When compared with ECG of 17-AUG-2020 13:42, MANUAL COMPARISON REQUIRED, DATA IS UNCONFIRMED Confirmed by MEDINA ONTIVEROS, FABIO ([id number]), editor dictionary ED CARRION ([id number]) on 08/22/2020 8:50:06 AM Referred By: Fabio Haney Confirmed By:FABIO HANEY MD
--- NOTE | 2020-08-20 16:43 | CL.I_ITS ---
Patient Name: SCARLETT STEVENS Study Date: 08/17/2020 Performing: Miller Devries MD Ht: 71 inches 180 cm : 1935 Wt: 289.2 lbs 131 kg Age: 85 Gender: male BSA: 2.46 PROCEDURE(S) PERFORMED [id number] W OR WO PTCA, SINGLE CORONARY ARTERY CLINICAL PROFILE AND CO-MORBIDITIES Indications: Suspected CAD Heart Failure: None Stress/Imaging Date: 08/07/20 Stress Test with SPECT MPI: Positive Intermediate Risk CAD Presentations: No Sxs, no angina. CONCLUSIONS Successful KARIS to mRCA RECOMMENDATIONS Follow up with Dr. Jose TOVAR Indefinitely. Dual antiplatelet therapy for 1 year DESCRIPTION OF PROCEDURE The patient arrived to the procedure lab. The risks and benefits of the procedure as well as a full d escription of our services here and current unavailability of surgical backup were fully explained to the patient and/or their significant other prior to the catheterization. The Timeout was completed, verifying the correct patient and procedure. The patient's procedural site was prepped and draped in the usual fashion. Local anesthetic was given subcutaneously to right radial region with Lidocaine 2% Using a modified Seldinger technique,arterial access was obtained via the right radial artery, a 6Fr sheath was inserted. Left Coronary Artery selective angiography was performed in multiple views usin g a 5 Fr. 4.0 [place] catheter. Right Coronary Artery selective angiography was then performed in multi ple views using a 5 Fr. 4.0 [place] catheter. Left Ventriculography was performed in MOYA projection usi ng a 5 Fr. Pigtail catheter. LV to AO pullback pressures were then recorded.The images were reviewed and options discussed. A decision was then made to proceed with an Intervention, IVUS o r other adjunct procedure. JR4 Guide catheter was inserted and engaged into the RCA. BMW Hines Guide wire was advanced t o the RCA. Emerge 3.50 x 12 Balloon catheter was inserted. Balloon catheter was advanced across lesio n in the right coronary, mid. PTCA balloon inflated at 6 atms for 10 secs. Angiogram performed post b alloon dilatation. Synergy 4.0 x 24 Drug Eluting stent was inserted. Drug Eluting stent was advanced across the lesion in the right coronary, mid. Angiogram performed post stent deployment. The arteri al sheath was pulled and a TR Band was applied for hemostasis INTERVENTION INFORMATION LESION SITE: RCA (Mid) Lesion Complexity: High/C, chronic total occlusion: No, lesion at bifurcation: No, thrombus present: No, lesion length: 20 mm, culprit lesion: Yes, Previously treated lesion: No Pre Stenosis: 95 % Pre intervention JACQUELINE flow: 3 PROCEDURE: Drug Eluting Stent with pre dilatation. Post Stenosis: 0 % Post intervention JACQUELINE flow: 3 Lesion Devices: Medtronic 6 Fr JR4.0 100cm Guide Catheter Le .014 BMW Hines Straight 190cm Castro Sci EMERGE MR 3.50x12 BALLOON Castro Sci Synergy MR AKRIS 4.00x24 COMPLICATIONS No Complications PROCEDURE MEDICATIONS Fentanyl 50 mcg IV Versed 1 mg IV Oxygen: 2 L/min via nasal cannula Brilinta 180 mg PO @ 08/17/2020 08:20:06 Heparin diluted in 23cc Heparinized saline. Patient given 10cc IA of this solution. 08/17/2020 08:03: 05 Heparin 9000 unit(s) IV 08/17/2020 09:03:55 Verapamil 2.5mg, Ntg 100mcgs, 2000 units of Heparin diluted in 23cc Heparinized saline. Patient give n 10cc IA of this solution. 08/17/2020 08:03:05 IV Bolus: .9 NaCl 250 ml total 08/17/2020 09:27:43 SUMMARY OF HEMODYNAMIC DATA Time AIR REST ECG 07:06:39 AO 98/56 (75) SA 08:02:58 LV 118/11, 13 08:15:24 LV 100/7, 16 08:15:31 LV 108/8, 15 08:16:31 LVp 110/13, 16 08:16:35 AOp 118/65 (90) 08:16:40 Signed By Miller Devries MD On 08/20/2020 4:42:24 PM Miller Devries MD
== END 2020-08-18 08:39 | disposition home or self-care (01) ==
LOC: CLSP 06:31 → PCU 09:45
PROVIDERS: Specialist; PCP Family Medicine; Referring Provider Internal Medicine Cardiovascular Disease; Visit Provider Internal Medicine Cardiovascular Disease
DX: I25.10 Atherosclerotic heart disease of native coronary artery without angina pectoris (principal); I48.19 Other persistent atrial fibrillation; I11.0 Hypertensive heart disease with heart failure; I50.32 Chronic diastolic (congestive) heart failure; E78.5 Hyperlipidemia, unspecified; G47.33 Obstructive sleep apnea (adult) (pediatric); Z79.02 Long term (current) use of antithrombotics/antiplatelets; Z79.899 Other long term (current) drug therapy; Z87.891 Personal history of nicotine dependence
CPT/HCPCS: 36415; 80048; 80053; 85025; 85027; 85610; 85730; 92928; 93005; 93458; 97802; 99152; 99153; J7030; J7040; Q9967; C1725; C1769; C1874; C1887; C1894; C9600; J1327

== ENCOUNTER → 2020-08-25 12:55 | Outpatient (CLI) | payer MEDICARE, OTHER, SELFPAY ==
[2020-08-17 13:03] VITALS: BMI 40.1
--- NOTE | 2020-08-25 13:11 | CR.HP_ITS ---
CR - History & Physical - General Arrival date:: 08/25/20 Arrival time:: 13:12 Date of Referral:: 08/17/20 Date of CR Evaluation:: 08/25/20 Referring Physician: Dr. Fabio Garcia Primary Diagnosis: Z95.5 PCI with stent - History of Present Cardiac Event Onset Date: Enter Onset Date of cardiac illnesses in Comment field below PTCA or coronary stenting:: Yes - 08/17/2020 - Medications Home Medications: Ambulatory Orders Medication Instructions Recorded Finasteride [Proscar] 5 mg PO DAILY 05/18/14 Saw [place]light Fruit [Saw Starlight] 900 mg PO DAILY 05/18/14 atorvastatin 20 mg tablet 20 mg PO DAILY 06/27/20 cholecalciferol (vitamin D3) 25 25 mcg PO DAILY 06/27/20 mcg (1,000 unit) capsule coenzyme Q10 75 mg capsule See Rx Instructions PO DAILY cap 06/27/20 vit C 250 mg-E 200 unit-zinc 40 1 tab PO DAILY cap 06/27/20 mg-copper 1 xt-fctrhw-bxohdi capsule lisinopril 10 mg tablet 10 mg PO DAILY 06/29/20 albuterol sulfate 2.5 mg INHALATION Q4H PRN 07/26/20 apixaban 5 mg tablet 5 mg PO BID #60 tab 07/26/20 aspirin 81 mg tablet,delayed 81 mg PO DAILY 07/26/20 release furosemide 40 mg tablet 40 mg PO BID #90 tab 07/26/20 metoprolol succinate 50 mg 50 mg PO DAILY #90 tab 07/26/20 tablet,extended release 24 hr spironolactone 50 mg tablet 50 mg PO DAILY #90 tab 08/14/20 Clopidogrel Bisulfate [Plavix] 75 mg PO DAILY #90 tab 08/18/20 - Allergies Allergies/Adverse Reactions: Allergies peanut Allergy (Verified 08/01/20 04:36) Itching levofloxacin [From Levaquin] Adverse Reaction (Verified 08/01/20 04:36) Rash - Sleep Disorder Evaluation Hx of Sleep Apnea: Yes Do you snore loudly (louder than talking or can be heard through closed doors)?: Yes Do you often feel tired/ fatigued/ sleepy during daytime?: Yes Has anyone observed you stop breathing during sleep?: No History of Hypertension (for STOP score): Yes - Pt has known sleep apnea STOP Results: Positive Advanced Directives - Advanced Directives Power of Pig Conveyor Operator: Yes Living Will: Yes Advance Directives Information Provided: Yes Advance Directives on File: No DNR Order?:: No - MOLST See MOLST form: No Past Medical History - Covid-19 Screening Fever: No Unexplained muscle aches: No Current respiratory symptoms: No Upper respiratory infections symptoms: No Gastro-intestinal symptoms: No Deb-Xtbq-Ukuivi symptoms: No Has tested positive for COVID-19 in last 30 days: No Had contact w/person w/symptoms or Covid-19 (+) last 14 days: No Has High Risk Exposures ID'd by Health dept/Inf Control team: No 65 years or older:: Yes Lives in Assisted Living facility:: No Has a chronic lung disease or moderate to severe asthma:: Yes Has a serious heart condition:: Yes Immunocompromised:: No Severely obese (Body Mass Index of 40 or higher):: Yes Diabetic:: No Has chronic kidney disease undergoing dialysis:: No Has liver disease:: No - Past Medical Illness Medical History: Past Medical History (Last Reviewed 07/26/20 @ 15:[address] 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, N13.8 Diverticulitis K57.92 Hiatal hernia K44.9 Leg swelling M79.89 Renal cyst N28.1 - Past Surgical History Surgical History: Past Surgical History (Last Updated 08/17/20 @ 17:06 by Leticia Ram) History of coronary artery stent placement (Acute) Onset Date: 08/17/20 Z95.5 PCI-KARIS-Mid RCA w/ 4.0 x 24 mm Synergy Stent 08/17/2020 History of cataract surgery Z98.49 History of colonoscopy with polypectomy Z98.890, Z86.010 History of orchiectomy Z90.79 History of transurethral resection of prostate Z98.890, Z90.79 - Family History Summary Family History: Family History (Last Reviewed 07/26/20 @ 15:[address] Fabio Garcia MD) Other No pertinent family history Social History - Smoking History Smoking Status: Never smoker Hx Tobacco Use: No Hx Smoking Exposure: No - Alcohol Use Alcohol Usage: No - Substance Abuse Hx Substance Use: No - Occupation Occupation (List type of work in comments):: Retired - Hobbies, Recreation, Social Activities Hobbies: Other - gardening Recreational Activities: I am able to engage in a few activities Social Environment - Status Marital Status: - Current Living Arrangements Living Environment:: Spouse - Children Do any of your children live nearby?: Yes - Safety Do you feel safe in your surroundings?: Yes - Assistance Do you need any assistance at home?: no Review of Systems - Review of Systems Hints: Right click = Denies (Slash). Left click = Reports (Arbon) Review of Present Symptoms: Reports: Shortness of Breath at Rest, Shortness of Breath with Exertion, Fatigue, Heart Arrhythmia/Irregularities, Appetite - Normal, Appetite - Special Diet. Denies: PVD, Operative Discomfort, Angina, Wound Healing, Dizziness/Lightheadedness, Sleep - Normal, Sexual Changes - Pain Is Patient Pain Free?: Yes Risk Factor Assessment - Vital Signs Pulse Ox: 98 Blood Pressure: 98/66 - Pulse Pulse Rate: 57 Pulse Rhythm: Irregular - Diabetes Nutrition Referral for Diabetes: No - Obesity Height: 5 ft 11 in Weight:: 130.635 kg Weight in Pounds: 288.0 lbs Body Mass Index (BMI): 40.1 Nutritional Referral for Obesity: Yes - Physical Inactivity Physical Inactivity: Recreational activity - Risk Stratification Risk Guidelines: Moderate Risk: Risk Factor for Smoking, Risk Factor for Dyslipidemia, Risk Factor for Diabetes, Risk Factor for Obesity, Risk Factor for Hypertension, Risk Factor for Sedentary Lifestyle, Risk Factor for Depression - For Smoking Smoking Risk Guidelines: Smoking Low Risk: None or quit greater than 6 months ago. Smoking Moderate Risk: Smoker or quit 6 months or less ago. Smoking High Risk: Smoker - For Dyslipidemia Dyslipidemia Risk Guidelines: Low Risk: Moderate Risk: High Risk: 15-25% fat 25.1-29% fat >/= 30% fat. <7% sat fat 7-9% sat fat >9% sat fat. <150 mg chol 150-299 mg chol >/= 300 mg chol. LDL <100 LDL 100-129 LDL >/= 130. Chol/HDL ratio <5.0 Chol/HDL ratio 5.0-6.0 Chol/HDL ratio >6.0. Triglycerides <100 Triglycerides 100-149 Triglycerides >/= 150 - For Diabetes Mellitus Diabetes Risk Guidelines: Diabetes Low Risk: HgA1c <6.5% and/or FBG <120. Diabetes Moderate Risk: HgA1c 6.6-7.9% and/or FBG 120-180. Diabetes High Risk: HgA1c >/= 8% and/or FBG >180 - For Obesity/Overweight Obesity/Overweight Risk Guidelines: Obesity Low Risk: BMI <25.0. Obesity Moderate Risk: BMI 25-29.9. Obesity High Risk: BMI >/= 30.0 - For Hypertension Hypertension Risk Guidelines: Hypertension Low Risk: Systolic <120 and Diastolic <80. Hypertension Moderate Risk: Systolic 120-139 and Diastolic 80-89. Hypertension High Risk: Systolic >/= 140 and Diastolic >/= 90 - For Sedentary Lifestyle Sedentary Lifestyle Risk Guidelines: Sedentary Lifestyle Low Risk: >/= 1,500 kcal/week. Sedentary Lifestyle Moderate Risk: 700-1,499 kcal/week. Sedentary Lifestyle High Risk: < 700 kcal/week - For Depression Depression Risk Guidelines: Depression Low Risk: Not clinically depressed. Depression Moderate Risk: Mildly depressed. Depression High Risk: Clinically depressed - Family History Family History: Family History (Last Reviewed 07/26/20 @ 15:[address] Fabio Garcia MD) Other No pertinent family history Motivation - Motivation to Participate On a scale of 1 to 10, how prepared are you to commit to attending program?: 10 What do you see as barriers to successfully being able to complete the program?: weather What do you see as the benefits of succesfully completing the program? In other words, what do you hope to get out of participating in the program?: improved health Are there issues you are dealing with that will interfere with completing the program?: none Do you have a spouse or signficant other, family or friends who will help support you to complete the program?: yes
--- NOTE | 2020-08-25 13:11 | PCM.CR.ITP ---
Diagnosis - General Information Admitting Diagnosis: Z95.5 PCI with stent Personal Learning Style:: Audio/Visual, Demonstration, Group, Individual Preference, Written Barriers to Learning: Vision Impairment Stage of change r/t lifestyle modifications:: Contemplation Gave educational material for:: Treating Heart Disease, Emotions & Heart Disease, Stress Management & Relaxation, Sleep Disorders & Heart Disease, How The Heart Works, What it means to have Heart Disease, How Coronary Artery Disease is Diagnosed, Heart Procedures, What Heart Medications Do, Risk Factors & Modifications, Living an Active Life, Nutrition - Education/Goals Cardiac Rehabilitation Goals: 1. Maintain the individual as the primary focus of care. 2. To improve the patient's quality of life. 3. Identification of cardiac risk factors and provide cardiac risk factor management. 4. Enhance the psychosocial status of the patient. 5. Reconditioning enough to allow the patient to resume customary activities. 6. Control symptoms of cardiac disease Personal Goals: Initial Assessment: Improve energy level, Participate in home exercise program, Get back to work, or to resume activities faster, Improve knowledge of cardiac disease, Improve muscle strength and endurance, Improve diet and eating habits (eat healthier), Control risk factors (learn risk factor modification), Other goal: Scale for measuring improvement of personal goals: Enter appropriate number in Comments. 2 = Unchanged. 3 = Slightly Better. 4 = Moderate Improvement. 5 = Met my Goal - Diagnosis & Disease Process Outcomes/Goals: Pt IDs own risk factors & lifestyle modifications by Session 10, Verbalizes symptoms of angina & response by session 3., Pt independently manages, Other Additional Outcomes/Goals: Plan/Interventions: Assist Pt to ID & engage in lifestyle modification to reduce CVD risk, Instruct on individual risk factors, Review symptoms of angina & emergency actions, Review secondary diagnosis & identify educational needs., Other see comment 30 day Reassessments:: Not Met 30 day Reassessments:: Not Met 30 day Reassessments:: Not Met 30 day Reassessments:: Not Met Final Reassessments:: Not Met - Safety Referral to Physical Therapy: No Referral to [facility] Case Management: No Fall Risk Assessed:: Yes Assistive Devices:: None Exercise - Initial Assessment - Visit Date of Eval: 08/25/20 - initial eval Mets: Pre-: >3 METS for 30 minutes by discharge, >5 METS for 30 minutes by discharge, >7 METS for 30 minutes by discharge, Unable to meet goal due to: (see comment below) - Physician Prescribed Exercise Modalities: Treadmill, Biodyne, Rower, Airdyne, NuStep, SciFit Frequency: 3x/week for 12 weeks [36 sessions] Intensity: 60-80% of age predicted maximum heart rate reserve Target Heart Rate:: 89-116 Resting Blood Pressure: 98/66 EKG Type: A-fib - Outcomes & Goals Goals:: Verbalizes understanding of THR, RPE & goal METS by session 6, Documents in home exercise log/reports 30 min aerobic 5 day/wk by DC, Demonstrates accurate pulse taking by DC, Other additional outcome/goals: see below - Intervention & Plan Exercise Program Goals: Instruct on personal THR & RPE, Instruct on MET level & personal MET goal, Show patient to take own pulse /validate performance until accurate, Instruct on home exercise, Other additional plan/int - Physical Activity Home Exercise Physical Activity - Home Exercise: Safe Exercise, Warm-up, Self-monitoring, Cool-Down, Home Exercise > 30 min Daily, Sitting Time <3 hours/daily - Outcomes & Goals Outcomes/Goals: Demonstrates correct Warm-up/exercise Cool-Down (S3) if = 2.5 METs, Verbalizes symptoms of exercise intolerance by Session 3 (S3), Demonstrate safe equipment use (S3) & follows exercise prescrition (6), Other: See below - Intervention & Plan Plan/Intervention: Instruct warm-up & cool-down if exercising at > 2 METs, Instruct on symptoms of exercise intolerance & actions to take, Instruct & monitor on saf, Assess intial functional capacity & safety risk, Other See below Nutrition - Initial Assessment - Program Goals Nutrition Program Goals: LDL <100 optimal. 100 - 129 Near optimal. 130 - 159 Borderline High. 160 - 189 High. Total Cholesterol <200 desirable. 200 - 239 Borderline High. >/= 240 High. HDL < 40 Low >/=60 High. Triglycerides <150 desirable. <199 optimal. VlDL 5 - 40. HgbA1C <7%. BMI <25 Patient has diagnosis of Hyperlipidemia (ICD E78)?: Yes - Visit Date of Assessment:: 08/25/20 - initial eval - Cholesterol/Lipids Determine presence & major risk factors that modify LDL goal: Cigarette smoking, Hypertension or hypertensive medication, Low HDL cholesterol <40 mg/dL*, 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 premature CHD in Male < 55 years: female <65 yearsFa, Age men > 45 years; women >/= 55 years Outcomes/Goals: Pt IDs own risk factors & lifestyle modifications by Session 10, Verbalizes symptoms of angina & response by session 3., Pt independently manages, Other Additional Outcomes/Goals: Intervention/Plan: Advocate for lipid panel cholesterol medication if applicable, Instruct on personal lipid levels & lipid goals/NCEP guidelines, Instruct on cholesterol, Other additional plan/int Referral to dietitian:: No - pt declines - Diabetes (Other Core Measures) Diabetes Type: Not Applicable - Weight Mgt (Other Care) Height: 5 ft 11 in Weight:: 130.635 kg BMI: 40.1 Diagnosis High BMI/Morbid Obesity BMI> 35% ICD-10 Z68: Yes Outcomes/Goals: Pt sets, maintains & shows weight loss goal & trend during rehab, Other additional outcomes/goals Intervention/Plan: Instruct on ideal BMI & set weight loss goal w/patient, Assist pt to ID & incorporate diet changes for weight loss by S9, Refer to Structured Weight Loss program as appropriate, Encourage goal of using 250-300dcal per session for weight loss, Other additional plan/interventions - Healthy Eating Habits Will attend diet classes:: Yes Outcomes/Goals:: Consume diet rich in vegs,fruits,whole grain/high fiber,fish,lean meat, Limit sat/trans fats,cholesterol & added salts & sugars, Other additional outcome/goals: Intervention/Plan:: Assess current eating habits, Other Additional plan/interventions - Education Gave educational materials for:: Signs & symptoms of hypoglycemia, Signs & symptoms of hyperglycemia, Relate diabetes to coronary artery disease, Healthy eating Medical - Initial Assessment - Visit Date of Eval: 08/25/20 - initial eval - Medication Compliance Preventative Medication(s):: Aspirin, Statin/lipid, Beta parag H/O mental health issues: depression, anxiety, or addiction?: No Doesn?t believe in the benefits of treatment?: No Believes medications are unnecessary or harmful?: No Has a concern about medication side effects?: No Expresses concern over the cost of medications?: No Outcomes/Goals: Verbalizes medications,desired effect & common side effects @ DC, Pt self-reports following medication regimen, Keeps card in wallet w/medications listed by DC, Other additional outcome/goals: - Tobacco Use Tobacco Use: Non-smoker Do you use smokeless tobacco?: No - Hypertension [place] [employer] Hypertension Guidelines: [place] [employer] Hypertension Guidelines. Normal BP Less than 120/80. Elevated BP 120/80. Hypertension Stage 1: BP 130-139/80-89. Hypertesnion Stage 2: BP 140 or higher/90 or higher. Hypertension Crisis: BP higher than 180/120 Outcomes/Goals: Able to verbalize/achieve optimal blood pressure <130/80, Incorporates diet changes & exercise for blood pressure control by DC, Other additional outcomes/goals Interventions/plan: Instruct on optimal blood pressure, hypertension & medications, Instruct on effects of sodium, alcohol, stress, exercise &hypertension, Other additional plan/interventions - Tobacco Cessation Referral Smoking Cessation Referral:: No Individual Education/Counseling:: No Education Schedule Given:: Yes Psychosocial - Initial Assess - VIsit Date of Eval: 08/25/20 - initial eval History of previous Mental disease:: No - Target Goals Target Goals: Assess presence or absence of depression. Using a valid screening tool, maximizes coping skills. Positive support system - Psychosocial Test phq-9 Severity: Severity. 1-4 Minimal Depression. 5-9 Mild Depression. 10-14 Moderate Depression. 15-19 Moderately Sever Depression. 20-27 Severe Depression. Rule: - Outcomes/Goals: See list Psychosocial Outcomes/Goals:: ID's personal stressors & 2 strategies to manage stress by discharge, Other Additional outcome/goals: - Intervention/Plan: See List Interventions/Plan:: Assess stressors,coping strategies & signs of derpression on admission, Instruct/assist pt to develop coping & personal stress Mgt strategies, Refer to Behavioral Health if appropriate, Refer to Physician if appropriate, Instruct patient to recognize signs & symptoms of depression, Instruct patient to recog, Other additional plan/intervention Patient Health Questionnaire Initial Assessment 1. Little interest or pleasure in doing things: Not at all 2. Feeling down, depressed, or hopeless: Several days 3. Trouble falling or staying asleep, or sleeping too much: More than half the days 4. Feeling tired or having little energy: Several days 5. Poor appetite or overeating: Not at all 6. Feeling bad about yourself -- or that you are a failure or have let yourself or your family down: Not at all 7. Trouble concentrating on things, such as reading the newspaper or watching television: Several days 8. Moving or speaking so slowly that other people could have noticed. Or the opposite - being so fidgety or restless that you have been moving around a lot more than usual: Several days 9. Thoughts that you would be better off , or of hurting yourself in some way: Not at all How difficult have these problems made it for you to do your work, take care of things at home, or get along with other people?: Not difficult at all Total Score: 6 MERON-Q SV Test - Statements CAD is a disease of the arteries in the heart: False Examples of risk factors for heart disease: True Angina is chest pain or discomfort: True The benefits of resistance training include: True Eating more meat and dairy products: False Anti-platelet medications such as aspirin are important: True The only effective way to manage stress: I Don't Know An exercise warm-up slowly increases heart rate: True Prepared, processed foods usually have high sodium: True Depression is common after a heart attack: I Don't Know The statin medications lower cholesterol: True To control blood pressure, lower the amount of sodium: I Don't Know If someone gets chest discomfort during walking: False Transfats are partially hydrogenated vegetable oils: True Sleep apnea that is not treated increases the risk: False To control cholesterol, one should become a vegetarian: False Someone knows if he/she is exercising at the right level: True Diabetes cannot be prevented with exercise & health eating: False Stress is a large risk for heart attack: True A diet that can help lower blood pressure is rich in: True - Total Score Total Correct Responses: 17 Self-Efficacy Initial Assessment We would like to know how confident you are in doing certain activities. Please select your confidence level for:: Select your confidence level for the following using the scale 1-10 where 1 is not at all confident and 10 is totally confident. Your score is the average of all 6 responses. Fatigue: How confident are you that you can keep the fatigue caused by your disease from interfering with the things you want to do? Select Number: 4 Physical Discomfort or Pain: How confident are you that you can keep the physical discomfort or pain of your disease from interfering with the things you want to do? Select Number: 2 Emotional Distress: How confident are you that you can keep the emotional distress caused by your disease from interfering with the things you want to do? Select Number: 4 Other Symptoms or Health Problems: How confident are you that you can keep other symptoms or health problems from interfering with the things you want to do? Select Number: 8 Different Tasks and Activities: How confident are you that you can do the different tasks and activities needed to manage your health condition so as to reduce your need to see a doctor? Select Number: 8 Medication: How confident are you that you can do things other than just taking medication to reduce how much your illness affects your everyday life? Select Number: 6 Total Score:: 5 Nutrition Survey - Nutrition Survey Instructions Scoring Instructions: Scoring is as follows: Yes = 1 points. No = 0 point. Patient score that is >/=12 is considered to be at potential nutritional risk and could benefit from a referral to a registered dietitian. - Nutrition Survey Initial Have you lost >10 lbs over the past 2 months without trying?: Yes Are you following a special diet at home for diabetes, low fat, or low salt?: Yes Are you interested in meeting with a dietitian for help understanding your diet?: Yes Do you eat less than 3 meals a day?: No Do you eat fatty meats (elliott, sausage, ribs, etc), fried foods, desserts, large amounts of salad dressings, margarine, butter, or cheese most days?: No Do you have food allergies? [Enter types in comment field]: No Do you eat in restaurants more than 3 times a week?: No Do you season food with salt, seasoning salt, or garlic salt?: No Do you used canned, boxed, frozen meals, or soups, seasoning packets?: Yes Total Score:: 4
[2020-08-25 14:45] VITALS: BP 98/66; PULSE 57; O2SAT 98; BMI 40.1
[2020-08-25 14:46] VITALS: BP 98/66; BMI 40.1
== END ==
PROVIDERS: PCP Family Medicine; Referring Provider Internal Medicine Cardiovascular Disease; Visit Provider Internal Medicine Cardiovascular Disease
DX: Z95.5 Presence of coronary angioplasty implant and graft (principal)

== ENCOUNTER 2020-09-15 13:00 | Outpatient (RCR) | payer MEDICARE, OTHER, SELFPAY ==
[2020-08-25 14:31] VITALS: BMI 40.1
[2020-08-25 14:32] VITALS: BMI 40.1
== END 2020-09-17 23:59 ==
LOC: CR 13:00
PROVIDERS: PCP Family Medicine; Referring Provider Internal Medicine Cardiovascular Disease; Visit Provider Internal Medicine Cardiovascular Disease
DX: I25.10 Atherosclerotic heart disease of native coronary artery without angina pectoris (principal); I48.19 Other persistent atrial fibrillation; I11.0 Hypertensive heart disease with heart failure; I50.32 Chronic diastolic (congestive) heart failure; E78.5 Hyperlipidemia, unspecified; J44.9 Chronic obstructive pulmonary disease, unspecified; G47.33 Obstructive sleep apnea (adult) (pediatric); G47.10 Hypersomnia, unspecified; R09.02 Hypoxemia; Z95.5 Presence of coronary angioplasty implant and graft
CPT/HCPCS: 93798

== ENCOUNTER 2020-10-18 13:00 | Outpatient (RCR) | payer MEDICARE, OTHER, SELFPAY ==
[2020-08-25 14:46] VITALS: BMI 40.1
[2020-08-28 10:58] VITALS: BMI 36.5
--- NOTE | 2020-09-22 06:50 | CR.ITP_ITS ---
Exercise - 30-day Assessment - Visit Date of Eval: 09/22/20 Session #:: 10 - Started 08/30/2020 - Physician Prescribed Exercise Modalities: Treadmill, Airdyne, NuStep, SciFit Frequency: 3x/week for 12 weeks [36 sessions] Intensity: 60-80% of age predicted maximum heart rate reserve Current METSs:: 3.5 Target Heart Rate:: 89-116 Current RPE:: 9-11 Maximum Excercise HR:: 83 Resting Blood Pressure: 108/72 Maximum Exercise Blood Pressure: 118/74 EKG Type: Chronic A-fib with ventricular ectopy. - Outcomes & Goals Goals:: Verbalizes understanding of THR, RPE & goal METS by session 6, Documents in home exercise log/reports 30 min aerobic 5 day/wk by DC, Demonstrates accurate pulse taking by DC - Intervention & Plan Exercise Program Goals: Instruct on personal THR & RPE, Instruct on MET level & personal MET goal, Show patient to take own pulse /validate performance until accurate, Instruct on home exercise - 30-day Reassessments 30 day Reassessments:: Progressing - Physical Activity Home Exercise Physical Activity - Home Exercise: Safe Exercise, Warm-up, Self-monitoring, Cool-Down, Home Exercise > 30 min Daily, Sitting Time <3 hours/daily - Outcomes & Goals Outcomes/Goals: Demonstrates correct Warm-up/exercise Cool-Down (S3) if = 2.5 METs, Verbalizes symptoms of exercise intolerance by Session 3 (S3), Demonstrate safe equipment use (S3) & follows exercise prescrition (6) - Intervention & Plan Plan/Intervention: Instruct warm-up & cool-down if exercising at > 2 METs, Instruct on symptoms of exercise intolerance & actions to take, Instruct & monitor on saf, Assess intial functional capacity & safety risk - 30-day Reassessments 30 day Reassessments:: Progressing Nutrition - 30-Day Assessment - Program Goals Nutrition Program Goals: LDL <100 optimal. 100 - 129 Near optimal. 130 - 159 Borderline High. 160 - 189 High. Total Cholesterol <200 desirable. 200 - 239 Borderline High. >/= 240 High. HDL < 40 Low >/=60 High. Triglycerides <150 desirable. <199 optimal. VlDL 5 - 40. HgbA1C <7%. BMI <25 Patient has diagnosis of Hyperlipidemia (ICD E78)?: Yes - Visit Date of Assessment:: 09/22/20 Session #:: 10 - Cholesterol/Lipids Triglycerides (mg/dL): 0 - not available Determine presence & major risk factors that modify LDL goal: Hypertension or hypertensive medication, Age men > 45 years; women >/= 55 years Outcomes/Goals: Pt IDs own risk factors & lifestyle modifications by Session 10, Verbalizes symptoms of angina & response by session 3., Pt independently manages Intervention/Plan: Instruct on personal lipid levels & lipid goals/NCEP guidelines, Instruct on cholesterol Referral to dietitian:: Yes - Medical Nutrition Therapy 30-day Reassessments:: Progressing - Diabetes (Other Core Measures) Diabetes Type: Not Applicable - Weight Mgt (Other Care) Not Applicable: No Height: 5 ft 11 in Weight:: 254 lb 8 oz BMI: 35.4 Diagnosis Overweight/Obesity BMI> 30% ICD-10 E66: Yes Diagnosis High BMI/Morbid Obesity BMI> 35% ICD-10 Z68: Yes Outcomes/Goals: Pt sets, maintains & shows weight loss goal & trend during rehab Intervention/Plan: Instruct on ideal BMI & set weight loss goal w/patient, Assist pt to ID & incorporate diet changes for weight loss by S9, Refer to Structured Weight Loss program as appropriate, Encourage goal of using 250- 300dcal per session for weight loss 30 day Reassessments:: Progressing - Down from 265# - Healthy Eating Habits Will attend diet classes:: Yes Outcomes/Goals:: Consume diet rich in vegs,fruits,whole grain/high fiber,fi sh,lean meat, Limit sat/trans fats,cholesterol & added salts & sugars Intervention/Plan:: Assess current eating habits 30-day Reassessments:: Progressing Medical- 30-Day Assessment - Visit Date of Eval: 09/22/20 Session #:: 10 - Medication Compliance Preventative Medication(s):: Aspirin, Clopidogrel/P2Y12 inhibit, Statin/lipid, Beta parag H/O mental health issues: depression, anxiety, or addiction?: No Doesn?t believe in the benefits of treatment?: No Believes medications are unnecessary or harmful?: No Has a concern about medication side effects?: No Expresses concern over the cost of medications?: No Outcomes/Goals: Verbalizes medications,desired effect & common side effects @ DC, Pt self-reports following medication regimen, Keeps card in wallet w/medications listed by DC Interventions/plans: Instruct on medication effects & side effects, Review medication list w/patient every two weeks, Instruct importance of taking meds as ordered & assist problem solving 30-day Reassessments:: Progressing - Tobacco Use Tobacco Use: Non-smoker - Hypertension Hypertension Diagnosis:: Hypertension ICD-10 I10 Resting Blood Pressure:: 108/72 - controlled on medications [place] [employer] Hypertension Guidelines: [place] [employer] Hypertension Guidelines. Normal BP Less than 120/80. Elevated BP 120/80. Hypertension Stage 1: BP 130-139/80-89. Hypertesnion Stage 2: BP 140 or higher/90 or higher. Hypertension Crisis: BP higher than 180/120 Peak Exercise Blood Pressure:: 118/74 Outcomes/Goals: Able to verbalize/achieve optimal blood pressure <130/80, Incorporates diet changes & exercise for blood pressure control by DC Interventions/plan: Instruct on optimal blood pressure, hypertension & medications, Instruct on effects of sodium, alcohol, stress, exercise &hypertension 30 day Reassessments:: Progressing - Tobacco Cessation Referral Smoking Cessation Referral:: No Individual Education/Counseling:: No Education Schedule Given:: Yes Psychosocial - 30-Day Assess - VIsit Date of Eval: 09/22/20 Session #:: 10 Not Applicable: Yes History of previous Mental disease:: No - Target Goals Target Goals: Assess presence or absence of depression. Using a valid screening tool, maximizes coping skills. Positive support system - Psychosocial Test Tool Used:: PHQ-9 Questionnaire phq-9 Severity: Severity. 1-4 Minimal Depression. 5-9 Mild Depression. 10-14 Moderate Depression. 15-19 Moderately Sever Depression. 20-27 Severe Depression. Rule: - Referral to Behavioral Health PS - Interventions: Yes Attend Stress Management Classes, No Referral to Behavioral Health if PHQ-9 score >9:, No Referral to [facility], No Referral to Physician if PHQ-9 if score is 5-9: - Outcomes/Goals: See list Psychosocial Outcomes/Goals:: ID's personal stressors & 2 strategies to manage stress by discharge - Intervention/Plan: See List Interventions/Plan:: Assess stressors,coping strategies & signs of derpression on admission, Instruct/assist pt to develop coping & personal stress Mgt strategies, Instruct patient to recognize signs & symptoms of depression, Instruct patient to recog - 30-day Reassessments: 30 day Reassessments:: Progressing Patient Health Questionnaire 30-Day Re-eval Assessment 1. Little interest or pleasure in doing things: Not at all 2. Feeling down, depressed, or hopeless: Not at all 3. Trouble falling or staying asleep, or sleeping too much: Several days 4. Feeling tired or having little energy: Not at all 5. Poor appetite or overeating: Not at all 6. Feeling bad about yourself -- or that you are a failure or have let yourself or your family down: Not at all 7. Trouble concentrating on things, such as reading the newspaper or watching t elevision: Several days 8. Moving or speaking so slowly that other people could have noticed. Or the opposite - being so fidgety or restless that you have been moving around a lot more than usual: Not at all 9. Thoughts that you would be better off , or of hurting yourself in some way: Not at all How difficult have these problems made it for you to do your work, take care of things at home, or get along with other people?: Somewhat difficult Total Score: 2 Self-Efficacy 30-Day Re-eval Assessment We would like to know how confident you are in doing certain activities. Please select your confidence level for:: Select your confidence level for the following using the scale 1-10 where 1 is not at all confident and 10 is totally confident. Your score is the average of all 6 responses. Fatigue: How confident are you that you can keep the fatigue caused by your disease from interfering with the things you want to do? Select Number: 6 Physical Discomfort or Pain: How confident are you that you can keep the physical discomfort or pain of your disease from interfering with the things you want to do? Select Number: 4 Emotional Distress: How confident are you that you can keep the emotional distress caused by your disease from interfering with the things you want to do? Select Number: 6 Other Symptoms or Health Problems: How confident are you that you can keep other symptoms or health problems from interfering with the things you want to do? Select Number: 8 Different Tasks and Activities: How confident are you that you can do the different tasks and activities needed to manage your health condition so as to reduce your need to see a doctor? Select Number: 8 Medication: How confident are you that you can do things other than just taking medication to reduce how much your illness affects your everyday life? Select Number: 7 Total Score:: 6
[2020-09-22 06:57] VITALS: BP 108/72; BP 118/74; BMI 35.4
== END 2020-10-18 23:59 ==
LOC: CR 13:00
PROVIDERS: PCP Family Medicine; Referring Provider Internal Medicine Cardiovascular Disease; Visit Provider Internal Medicine Cardiovascular Disease
DX: I25.10 Atherosclerotic heart disease of native coronary artery without angina pectoris (principal); I48.19 Other persistent atrial fibrillation; I11.0 Hypertensive heart disease with heart failure; I50.32 Chronic diastolic (congestive) heart failure; E78.5 Hyperlipidemia, unspecified; J44.9 Chronic obstructive pulmonary disease, unspecified; G47.33 Obstructive sleep apnea (adult) (pediatric); G47.10 Hypersomnia, unspecified; R09.02 Hypoxemia; Z95.5 Presence of coronary angioplasty implant and graft
CPT/HCPCS: 93798

== ENCOUNTER 2020-11-17 13:00 | Outpatient (RCR) | payer MEDICARE, OTHER, SELFPAY ==
[2020-09-22 06:57] VITALS: BMI 35.4
[2020-10-12 09:04] VITALS: BMI 36.1
[2020-10-19 00:43] VITALS: BP 108/72; BP 118/74
--- NOTE | 2020-10-23 07:16 | CR.ITP_ITS ---
Exercise - 30-day Assessment - Visit Date of Eval: 10/23/20 Session #:: 11 - Physician Prescribed Exercise Modalities: Treadmill, NuStep Frequency: 3x/week for 12 weeks [36 sessions] Intensity: 60-80% of age predicted maximum heart rate reserve Current METSs:: 3.5 Target Heart Rate:: 89-116 Current RPE:: 11 Maximum Excercise HR:: 106 Resting Blood Pressure: 100/70 Maximum Exercise Blood Pressure: 112/54 EKG Type: Atrial Fibrillation wtih ventricular ectopy. - Outcomes & Goals Goals:: Verbalizes understanding of THR, RPE & goal METS by session 6, Documents in home exercise log/reports 30 min aerobic 5 day/wk by DC, Demonstrates accurate pulse taking by DC - Intervention & Plan Exercise Program Goals: Instruct on personal THR & RPE, Instruct on MET level & personal MET goal, Show patient to take own pulse /validate performance until accurate, Instruct on home exercise - 30-day Reassessments 30 day Reassessments:: Progressing - Physical Activity Home Exercise Physical Activity - Home Exercise: Safe Exercise, Warm-up, Self-monitoring, Cool-Down, Home Exercise > 30 min Daily, Sitting Time <3 hours/daily - Outcomes & Goals Outcomes/Goals: Demonstrates correct Warm-up/exercise Cool-Down (S3) if = 2.5 METs, Verbalizes symptoms of exercise intolerance by Session 3 (S3), Demonstrate safe equipment use (S3) & follows exercise prescrition (6) - Intervention & Plan Plan/Intervention: Instruct warm-up & cool-down if exercising at > 2 METs, Instruct on symptoms of exercise intolerance & actions to take, Instruct & monitor on saf, Assess intial functional capacity & safety risk - 30-day Reassessments 30 day Reassessments:: Progressing Nutrition - 30-Day Assessment - Program Goals Nutrition Program Goals: LDL <100 optimal. 100 - 129 Near optimal. 130 - 159 Borderline High. 160 - 189 High. Total Cholesterol <200 desirable. 200 - 239 Borderline High. >/= 240 High. HDL < 40 Low >/=60 High. Triglycerides <150 desirable. <199 optimal. VlDL 5 - 40. HgbA1C <7%. BMI <25 Patient has diagnosis of Hyperlipidemia (ICD E78)?: Yes - Visit Date of Assessment:: 10/23/20 Session #:: 11 - Cholesterol/Lipids Triglycerides (mg/dL): 127 Total Cholesterol (mg/dL): 188 LDL Cholesterol (mg/dL): 116 HDL Cholesterol (mg/dL): 47 Determine presence & major risk factors that modify LDL goal: Hypertension or hypertensive medication, 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 premature CHD in Male < 55 years: female <65 yearsFa, Age men > 45 years; women >/= 55 years Outcomes/Goals: Pt IDs own risk factors & lifestyle modifications by Session 10, Verbalizes symptoms of angina & response by session 3., Pt independently manages Intervention/Plan: Instruct on personal lipid levels & lipid goals/NCEP guidelines, Instruct on cholesterol Referral to dietitian:: Yes - Medical Nutrition Therapy 30-day Reassessments:: Progressing - Diabetes (Other Core Measures) Diabetes Type: Not Applicable - Weight Mgt (Other Care) Not Applicable: No Height: 5 ft 11 in Weight:: 256 lb BMI: 35.6 Diagnosis Overweight/Obesity BMI> 30% ICD-10 E66: Yes Diagnosis High BMI/Morbid Obesity BMI> 35% ICD-10 Z68: Yes Outcomes/Goals: Pt sets, maintains & shows weight loss goal & trend during rehab Intervention/Plan: Instruct on ideal BMI & set weight loss goal w/patient, Assist pt to ID & incorporate diet changes for weight loss by S9, Refer to Structured Weight Loss program as appropriate, Encourage goal of using 250- 300dcal per session for weight loss 30 day Reassessments:: Not Met - Healthy Eating Habits Will attend diet classes:: Yes Outcomes/Goals:: Consume diet rich in vegs,fruits,whole grain/high fiber,fish,lean meat, Limit sat/trans fats,cholesterol & added salts & sugars Intervention/Plan:: Assess current eating habits 30-day Reassessments:: Progressing Medical- 30-Day Assessment - Visit Date of Eval: 10/23/20 Session #:: 11 - Medication Compliance Preventative Medication(s):: Aspirin, Clopidogrel/P2Y12 inhibit, Statin/lipid, Beta parag H/O mental health issues: depression, anxiety, or addiction?: No Doesn?t believe in the benefits of treatment?: No Believes medications are unnecessary or harmful?: No Has a concern about medication side effects?: No Expresses concern over the cost of medications?: No Outcomes/Goals: Verbalizes medications,desired effect & common side effects @ DC, Pt self-reports following medication regimen, Keeps card in wallet w/medications listed by DC Interventions/plans: Instruct on medication effects & side effects, Review medication list w/patient every two weeks, Instruct importance of taking meds as ordered & assist problem solving 30-day Reassessments:: Progressing - Tobacco Use Tobacco Use: Non-smoker - Hypertension Hypertension Diagnosis:: Hypertension ICD-10 I10 Resting Blood Pressure:: 100/70 [place] [employer] Hypertension Guidelines: [place] [employer] Hypertension Guidelines. Normal BP Less than 120/80. Elevated BP 120/80. Hypertension Stage 1: BP 130-139/80-89. Hypertesnion Stage 2: BP 140 or higher/90 or higher. Hypertension Crisis: BP higher than 180/120 Peak Exercise Blood Pressure:: 112/54 Outcomes/Goals: Able to verbalize/achieve optimal blood pressure <130/80, Incorporates diet changes & exercise for blood pressure control by DC Interventions/plan: Instruct on optimal blood pressure, hypertension & medications, Instruct on effects of sodium, alcohol, stress, exercise &hypertension 30 day Reassessments:: Progressing - Tobacco Cessation Referral Smoking Cessation Referral:: No Individual Education/Counseling:: No Education Schedule Given:: Yes Psychosocial - 30-Day Assess - VIsit Date of Eval: 10/23/20 Session #:: 11 Not Applicable: Yes History of previous Mental disease:: No - Target Goals Target Goals: Assess presence or absence of depression. Using a valid screening tool, maximizes coping skills. Positive support system - Psychosocial Test Tool Used:: PHQ-9 Questionnaire phq-9 Severity: Severity. 1-4 Minimal Depression. 5-9 Mild Depression. 10-14 Moderate Depression. 15-19 Moderately Sever Depression. 20-27 Severe Depression. Rule: - Referral to Behavioral Health PS - Interventions: Yes Attend Stress Management Classes, No Referral to Behavioral Health if PHQ-9 score >9:, No Referral to [facility], No Referral to Physician if PHQ-9 if score is 5-9: - Outcomes/Goals: See list Psychosocial Outcomes/Goals:: ID's personal stressors & 2 strategies to manage stress by discharge - Intervention/Plan: See List Interventions/Plan:: Assess stressors,coping strategies & signs of derpression on admission, Instruct/assist pt to develop coping & personal stress Mgt strategies, Instruct patient to recognize signs & symptoms of depression, Instruct patient to recog - 30-day Reassessments: 30 day Reassessments:: Progressing Patient Health Questionnaire 30-Day Re-eval Assessment 1. Little interest or pleasure in doing things: Several days 2. Feeling down, depressed, or hopeless: Several days 3. Trouble falling or staying asleep, or sleeping too much: Not at all 4. Feeling tired or having little energy: More than half the days 5. Poor appetite or overeating: Not at all 6. Feeling bad about yourself -- or that you are a failure or have let yourself or your family down: Several days 7. Trouble concentrating on things, such as reading the newspaper or watching television: Not at all 8. Moving or speaking so slowly that other people could have noticed. Or the opposite - being so fidgety or restless that you have been moving around a lot more than usual: Several days 9. Thoughts that you would be better off , or of hurting yourself in some way: Not at all Total Score: 6 Self-Efficacy 30-Day Re-eval Assessment We would like to know how confident you are in doing certain activities. Please select your confidence level for:: Select your confidence level for the following using the scale 1-10 where 1 is not at all confident and 10 is totally confident. Your score is the average of all 6 responses. Fatigue: How confident are you that you can keep the fatigue caused by your disease from interfering with the things you want to do? Select Number: 4 Physical Discomfort or Pain: How confident are you that you can keep the physical discomfort or pain of your disease from interfering with the things you want to do? Select Number: 5 Emotional Distress: How confident are you that you can keep the emotional distress caused by your disease from interfering with the things you want to do? Select Number: 7 Other Symptoms or Health Problems: How confident are you that you can keep other symptoms or health problems from interfering with the things you want to do? Select Number: 7 Different Tasks and Activities: How confident are you that you can do the different tasks and activities needed to manage your health condition so as to reduce your need to see a doctor? Select Number: 7 Medication: How confident are you that you can do things other than just taking medication to reduce how much your illness affects your everyday life? Select Number: 9 Total Score:: 6
[2020-10-23 07:23] VITALS: BP 100/70; BP 112/54; BMI 35.6
== END 2020-11-17 23:59 ==
LOC: CR 13:00
PROVIDERS: PCP Family Medicine; Referring Provider Internal Medicine Cardiovascular Disease; Visit Provider Internal Medicine Cardiovascular Disease
DX: I25.10 Atherosclerotic heart disease of native coronary artery without angina pectoris (principal); I48.19 Other persistent atrial fibrillation; I11.0 Hypertensive heart disease with heart failure; I50.32 Chronic diastolic (congestive) heart failure; E78.5 Hyperlipidemia, unspecified; J44.9 Chronic obstructive pulmonary disease, unspecified; G47.33 Obstructive sleep apnea (adult) (pediatric); G47.10 Hypersomnia, unspecified; R09.02 Hypoxemia; R04.0 Epistaxis; Z95.5 Presence of coronary angioplasty implant and graft
CPT/HCPCS: 93798

== ENCOUNTER 2020-11-20 07:33 | Outpatient (RCR) | payer MEDICARE, OTHER, SELFPAY ==
[2020-10-12 09:04] VITALS: BMI 36.1
[2020-10-23 07:23] VITALS: BMI 35.6
[2020-11-18 00:42] VITALS: BP 100/70; BP 112/54
== END 2020-12-18 23:59 ==
LOC: CR 07:33
PROVIDERS: PCP Family Medicine; Referring Provider Internal Medicine Cardiovascular Disease; Visit Provider Internal Medicine Cardiovascular Disease
DX: I25.10 Atherosclerotic heart disease of native coronary artery without angina pectoris (principal); I48.19 Other persistent atrial fibrillation; I11.0 Hypertensive heart disease with heart failure; I50.32 Chronic diastolic (congestive) heart failure; E78.5 Hyperlipidemia, unspecified; J44.9 Chronic obstructive pulmonary disease, unspecified; G47.33 Obstructive sleep apnea (adult) (pediatric); G47.10 Hypersomnia, unspecified; R09.02 Hypoxemia; R04.0 Epistaxis; Z95.5 Presence of coronary angioplasty implant and graft
CPT/HCPCS: 93798

== ENCOUNTER → 2020-11-20 09:58 | Outpatient (CLI) | payer MEDICARE, OTHER, SELFPAY ==
[2020-10-12 09:04] VITALS: BMI 36.1
[2020-10-23 07:23] VITALS: BMI 35.6
[2020-11-20 11:43] LABS: AST(SGOT) 26 U/L (15-37); Alanine Aminotransfer ALT/SGPT 27 U/L (16-61); Albumin, Serum 3.7 g/dL (3.2-5.0); Alkaline Phosphatase 105 U/L (45-117); Anion Gap 5 (5-15); BUN 27 mg/dL (7-18); BUN/Creat Ratio 25.7 RATIO (10-20); Bilirubin, Direct 0.28 mg/dL (0.00-0.30); Calcium,Total 8.6 mg/dL (8.5-10.1); Chloride 96 mmol/L (98-107); Cholesterol 108 mg/dL (200); Creatinine, Serum 1.05 mg/dL (0.70-1.30); EST Glomerular Filtration Rate 72 mL/min (>60); Est Glom Filt Rate - Afr Amer 87 mL/min (>60); Globulin 3.7 g/dL (2.2-4.2); Glucose 91 mg/dL (74-106); High Density Lipoprotein 60 mg/dL; Potassium 4.7 mmol/L (3.5-5.1); Protein, Total 7.4 g/dL (6.4-8.2); Sodium Level 128 mmol/L (136-145); Triglycerides 40 mg/dL; Very Low Density Lipoprotein 8 mg/dL (5-40)
== END ==
PROVIDERS: PCP Family Medicine; Visit Provider Internal Medicine Cardiovascular Disease
DX: I50.32 Chronic diastolic (congestive) heart failure (principal); E78.5 Hyperlipidemia, unspecified; I25.10 Atherosclerotic heart disease of native coronary artery without angina pectoris
CPT/HCPCS: 36415; 80048; 80061; 80076

== ENCOUNTER → 2020-11-23 17:12 | Outpatient (CLI) | payer MEDICARE, OTHER, SELFPAY ==
[2020-10-23 07:23] VITALS: BMI 35.6
[2020-11-23 10:45] VITALS: BMI 35.9
--- NOTE | 2020-11-23 17:25 | CT_ITS ---
STUDY: CT BRAIN WITHOUT CONTRAST REASON FOR EXAM: Male, 85 years old. Fall, head injury RADIATION DOSAGE (If Supplied By Facility): CTDIvol = ( 38.43 ) mGy, DLP = ( 784.74 ) mGycm TECHNIQUE: Transaxial CT imaging of the brain was performed without administration of intravenous contrast material. Individualized dose optimization techniques were used for this CT. COMPARISON: No relevant priors. FINDINGS: Normal soft tissue structures. Normal calvarium. There is mild cerebral atrophy with widening of the extra-axial spaces and ventricular dilatation. There are areas of decreased attenuation within the white matter tracts of the supratentorial brain, consistent with microvascular disease changes. Normal basal ganglia and thalami. Normal brainstem. Normal cerebellum. There is no intracranial hemorrhage. There are no findings of an acute ischemic infarction. Normal visualized paranasal sinuses. CT/Brain/Head without Contrast IMPRESSION: Chronic involutional changes of the brain. Electronically Signed: Champ Harris MD at 18:35 EDT , Service support ,
== END ==
PROVIDERS: PCP Family Medicine; Referring Provider Nurse Practitioner Family; Visit Provider Nurse Practitioner Family
DX: S09.90XA Unspecified injury of head, initial encounter (principal); Z79.01 Long term (current) use of anticoagulants
CPT/HCPCS: 70450

== ENCOUNTER → 2020-11-27 13:46 | Outpatient (CLI) | payer MEDICARE, OTHER, SELFPAY ==
[2020-10-23 07:23] VITALS: BMI 35.6
[2020-11-23 10:45] VITALS: BMI 35.9
--- NOTE | 2020-11-27 13:48 | ECHOCS_ITS ---
Reason For Study: Arrhythmia Procedure This was a 2D Doppler, Color Flow transthoracic echocardiogram. Technically difficult study, patient could not tolerate probe in apical window. Contrast injection performed. Exam performed in department. Left Ventricle Normal LV size. Moderate concentric left ventricular hypertrophy. Left ventricular systolic function is lower limits of normal. The estimated ejection fraction is 50 %. Stage 1 diastolic dysfunction. There is mild global hypokinesis of the left ventricle. Right Ventricle Normal RV size. Normal systolic function. Atria The left atrium is mildly enlarged. Normal right atrium. Mitral Valve Mitral valve not well visualized. Tricuspid Valve Normal tricuspid valve. Mild (1+) tricuspid valve insufficiency. Pulmonary artery systolic pressure is 34 mmHg. Aortic Valve Trisinus/trileaflet aortic valve. Pulmonic Valve Normal pulmonic valve. Great Vessels Normal aortic root. The pulmonary artery is normal size. Normal inferior vena cava. Pericardium/Pleural No pericardial effusion. Medication 22 gauge I.V. with prn adaptor inserted into right arm. Diluted definity 4ml given slow IV push to enhance endocardial definition. MMode/2D Measurements & Calculations LVIDd: 4.8 cm IVSd: 1.7 cm Ao root diam: 3.9 cm LVIDs: 3.5 cm LVPWd: 1.4 cm LA dimension: 4.3 cm FS: 26.0 % LAV(MOD-bp): 74.1 ml LA A4 area: 23.7 cm2 RA A4 area: 18.7 cm2 LAV(MOD-bp) Indexed: 31.5 ml/m2 LAV(MOD-sp2): 63.6 ml LAV(MOD-sp4): 76.7 ml Time Measurements MV dec time: 0.26 sec Doppler Measurements & Calculations MV E max diego: 54.0 cm/sec Lat Peak E' Diego: 12.1 cm/sec Med Peak E' Diego: 9.7 cm/sec MV A max [place]go: 61.1 cm/sec E/E' lat: 4.4 E/E' med: 5.6 MV E/A: 0.88 MV V2 max: 85.2 cm/sec MV P1/2t max [place]: 78.7 cm/sec Ao V2 max: 96.3 cm/sec MV max P.9 mmHg MV P1/2t: 62.5 msec Ao max P.7 mmHg MV V2 mean: 49.5 cm/sec MV dec slope: 369.2 cm/sec2 MV mean P.2 mmHg MV V2 VTI: 21.3 cm MVA(P1/2t): 3.5 cm2 LV V1 max: 80.8 cm/sec PA V2 max: 88.6 cm/sec TR max [place]go: 279.6 cm/sec LV V1 max P.6 mmHg TR max P.3 mmHg ECHO/Echo Complete W/ Contrast Interpretation Summary Normal LV size. Moderate concentric left ventricular hypertrophy. Left ventricular systolic function is lower limits of normal. The estimated ejection fraction is 50 %. There is mild global hypokinesis of the left ventricle. Stage 1 diastolic dysfunction. Pulmonary artery systolic pressure is 34 mmHg. Contrast injection was performed. Ordering Physician: Robby Peralta Referring Physician: Chuck Paulino Performed By: Thuan Lay RCS
== END ==
PROVIDERS: PCP Family Medicine; Referring Provider Nurse Practitioner Family; Visit Provider Nurse Practitioner Family
DX: G47.33 Obstructive sleep apnea (adult) (pediatric) (principal)
CPT/HCPCS: 93306; Q9957; A4216; C8929

== ENCOUNTER → 2020-12-06 10:18 | Outpatient (CLI) | payer MEDICARE, OTHER, SELFPAY ==
[2020-10-23 07:23] VITALS: BMI 35.6
[2020-12-01 16:02] VITALS: BMI 35.9
[2020-12-06 11:14] LABS: Anion Gap 3 (5-15); BUN 19 mg/dL (7-18); BUN/Creat Ratio 18.3 RATIO (10-20); Calcium,Total 8.8 mg/dL (8.5-10.1); Chloride 105 mmol/L (98-107); Creatinine, Serum 1.04 mg/dL (0.70-1.30); EST Glomerular Filtration Rate 72 mL/min (>60); Est Glom Filt Rate - Afr Amer 88 mL/min (>60); Glucose 83 mg/dL (74-106); Potassium 4.4 mmol/L (3.5-5.1); Sodium Level 136 mmol/L (136-145)
== END ==
PROVIDERS: PCP Family Medicine; Referring Provider Internal Medicine Cardiovascular Disease; Visit Provider Internal Medicine Cardiovascular Disease
DX: I50.32 Chronic diastolic (congestive) heart failure (principal)
CPT/HCPCS: 36415; 80048

== ENCOUNTER → 2021-03-29 08:48 | Outpatient (CLI) | payer MEDICARE, OTHER, SELFPAY ==
[2020-09-22 06:57] VITALS: BMI 35.4
[2020-10-12 09:04] VITALS: BMI 36.1
[2020-10-23 07:23] VITALS: BMI 35.6
--- NOTE | 2021-03-30 11:09 | PFT ---
INTRODUCTION: The patient is an 85-year-old male that presents for pulmonary function studies secondary to a diagnosis of dyspnea. Respiratory therapy reported good patient effort. Bronchodilators were used during testing. INTERPRETATION: Forced expiration spirometry demonstrates no evidence of a large airways obstructive ventilatory defect. There was no significant response to aerosolized bronchodilators. Spirograms are of good quality and plateau normally. The respiratory flow volume loop is normal. Body plethysmography was performed and reveals lung volumes to be within normal limits. Diffusing capacity by single breath CO was also within normal limits. IMPRESSION: Grossly normal pulmonary function studies.
== END ==
PROVIDERS: PCP Family Medicine; Referring Provider Internal Medicine Critical Care Medicine; Visit Provider Internal Medicine Critical Care Medicine
DX: I50.32 Chronic diastolic (congestive) heart failure (principal); R60.0 Localized edema
CPT/HCPCS: 94060; 94726; 94729

== ENCOUNTER 2021-10-02 12:37 | Outpatient (CLI) | payer MEDICARE, OTHER, SELFPAY ==
[2020-10-23 07:23] VITALS: BMI 35.6
[2021-10-02 13:16] LABS: Absolute Lymphocyte Count 1.01 X10^3/uL (0.83-4.51); Absolute Neutrophil Count 4.9 X10^3/uL (2.0-7.7); Basophil# 0.07 X10^3/uL; Eosinophil# 0.08 X10^3/uL; Eosinophils% 1.2 % (0-5); Hemoglobin 12.3 g/dL (13.0-16.5); Lymphocyte # 1.01 X10^3/ul (0.83-4.51); Lymphocyte % 15.1 % (19-41); Mean Corp Hgb Conc 35.1 g/dL (32-36); Mean Corpuscular Hgb 31.2 pg (27.0-32.0); Mean Corpuscular Volume 88.8 fL (80-94); Mean Platelet Vol. 9.8 fl (6.2-12.0); Monocyte# 0.62 X10^3/uL; Monocyte% 9.3 % (0-10); NRBC Flagged by Analyzer 0 % (0-5); Neutrophil # 4.88 X10^3/uL (2.7-7.7); Neutrophil % 73.1 % (47-70); Platelet Count 210 K/mm3 (150-450); RBC Distribution Width CV 11.8 % (11.6-14.6); RBC Distribution Width SD 37.8 fl (35.1-43.9); Red Blood Count 3.94 M/mm3 (4.6-6.2); White Blood Count 6.7 K/mm3 (4.4-11.0)
[2021-10-02 14:01] LABS: Anion Gap 6 (5-15); BUN 17 mg/dL (7-18); BUN/Creat Ratio 15.9 RATIO (10-20); Calcium,Total 9.1 mg/dL (8.5-10.1); Chloride 95 mmol/L (98-107); Creatinine, Serum 1.07 mg/dL (0.70-1.30); EST Glomerular Filtration Rate 70 mL/min (>60); Est Glom Filt Rate - Afr Amer 85 mL/min (>60); Glucose 89 mg/dL (74-106); Magnesium 1.9 mg/dL (1.6-2.6); Sodium Level 125 mmol/L (136-145); T4 Free Direct 1.29 ng/dL (0.76-1.46); Thyroid Stim Hormone (TSH) 2.41 uIU/mL (0.358-3.74)
[2021-10-02 14:02] LABS: BNP,B-Type NATRIURETIC PEPTIDE 153.5 pg/mL (0-100)
== END 2021-10-02 23:59 | disposition home or self-care (01) ==
LOC: LAB 12:39
PROVIDERS: PCP Internal Medicine; Referring Provider Nurse Practitioner Family; Visit Provider Nurse Practitioner Family
DX: I50.32 Chronic diastolic (congestive) heart failure (principal); R06.09 Other forms of dyspnea; R53.83 Other fatigue; E78.5 Hyperlipidemia, unspecified
CPT/HCPCS: 36415; 80048; 83735; 83880; 84439; 84443; 85025

== ENCOUNTER 2021-10-12 05:43 | Outpatient (CLI) | payer MEDICARE, OTHER, SELFPAY ==
[2020-10-23 07:23] VITALS: BMI 35.6
--- NOTE | 2021-10-12 16:59 | STRESSREP ---
Stress Test Report Pharmacologic myocardial perfusion stress test. 86-year-old man with a history of chest pain. Stress protocol: Resting EKG demonstrates atrial fibrillation with a rate of 55 bpm resting blood pressure is 124/82 mmHg. 0.4 mg of regadenoson was infused per usual protocol followed by rapid intravenous saline flush injection continuous EKG monitoring was performed. The patient maintained atrial fibrillation rhythm with a right bundle branch block noted throughout. The maximum heart rate was 75 bpm which was 55% of max impact at heart rate the maximum workload was 1 metabolic equivalent. At rest there were no ST or T wave changes noted to suggest abnormal flow reserve and at peak infusion nonspecific ST changes were noted with did not meet the criteria for ischemia. No clinical angina was noted. Myocardial perfusion protocol. 14.6 mCi of technetium 99m sestamibi was injected at rest. 0.4 mg of regadenoson was infused per usual protocol. At peak infusion 44.4 mCi of technetium 99m sestamibi was injected stress images were obtained stress and rest images were reconstructed and compared in the short axis vertical long and horizontal long axis. Gated images were also obtained. Perfusion SPECT analysis: Review of the stress images demonstrate normal uptake of tracer noted in all areas of the myocardium. The resting images similarly demonstrate normal uptake of tracer noted in all areas of the myocardium. No previous infarct was noted and no ischemia was noted. Gated SPECT analysis: The gated ejection fraction is noted to be 46%. Conclusion: Normal pharmacologic myocardial perfusion stress test. Atrial fibrillation noted. Low normal ejection fraction.
== END 2021-10-12 23:59 | disposition home or self-care (01) ==
LOC: CVS 05:43
PROVIDERS: PCP Internal Medicine; Referring Provider Nurse Practitioner Family; Visit Provider Nurse Practitioner Family
DX: R07.9 Chest pain, unspecified (principal); I48.0 Paroxysmal atrial fibrillation; I25.10 Atherosclerotic heart disease of native coronary artery without angina pectoris; I10 Essential (primary) hypertension; E78.5 Hyperlipidemia, unspecified; R06.00 Dyspnea, unspecified; R53.83 Other fatigue; Z95.5 Presence of coronary angioplasty implant and graft
CPT/HCPCS: 78452; 93017; A9500; A4216; J2785

== ENCOUNTER 2021-10-17 15:32 | Outpatient (CLI) | payer MEDICARE, OTHER, SELFPAY ==
[2020-10-23 07:23] VITALS: BMI 35.6
[2021-10-17 16:35] LABS: Anion Gap 6 (5-15); BUN 22 mg/dL (7-18); BUN/Creat Ratio 21.8 RATIO (10-20); Calcium,Total 9.1 mg/dL (8.5-10.1); Chloride 103 mmol/L (98-107); Creatinine, Serum 1.01 mg/dL (0.70-1.30); EST Glomerular Filtration Rate 75 mL/min (>60); Est Glom Filt Rate - Afr Amer 90 mL/min (>60); Glucose 97 mg/dL (74-106); Potassium 4.4 mmol/L (3.5-5.1); Sodium Level 133 mmol/L (136-145)
== END 2021-10-17 23:59 | disposition home or self-care (01) ==
LOC: LAB 15:33
PROVIDERS: PCP Internal Medicine; Referring Provider Nurse Practitioner Family; Visit Provider Nurse Practitioner Family
DX: E87.1 Hypo-osmolality and hyponatremia (principal)
CPT/HCPCS: 36415; 80048

== ENCOUNTER → 2022-01-27 | Outpatient (CLI) | payer MEDICARE, OTHER, SELFPAY ==
[2020-10-23 07:23] VITALS: BMI 35.6
[2022-01-27 15:14] LABS: Bacteria 0 SEEN /hpf (None Seen); Mucous, Urine 0 SEEN /hpf (<or=2+); Red Blood Cells-Urine 0 SEEN /hpf (0-5); Squamous Epithelial Cells - UA 0 SEEN /hpf (0-5)
[2022-01-27 15:17] LABS: Color, Urine Straw (Yellow); Glucose, Dipstick Normal (Normal); Ketone-Dipstick Negative (Negative); Leukocyte Esterase-Dipstick 500 /ul (Negative); Nitrite-Dipstick Negative (Negative); Occult Blood-Urine 25 /ul (Negative); Protein-Dipstick Negative (Negative); Urine Bilirubin Dipstick Negative (Negative); Urine Clarity Sl. Cloudy (Clear); Urine Urobilinogen Normal (Normal)
[2022-01-27 15:33] LABS: White Blood Cells 25-50 SEEN /hpf (0-5)
== END | disposition home or self-care (01) ==
PROVIDERS: PCP Internal Medicine; Visit Provider Nurse Practitioner Family
DX: R30.0 Dysuria (principal)
CPT/HCPCS: 81001; 87077; 87086; 87088; 87186

== ENCOUNTER 2022-01-29 07:30 | Day surgery (SDC) | payer MEDICARE, OTHER, SELFPAY ==
[2020-10-23 07:23] VITALS: BMI 35.6
[2022-01-29] VITALS (7 sets, daily range): BP systolic 110–126; BP diastolic 61–90; PULSE 58–68; RESP 14–106; TEMP 35.7–35.9; O2SAT 98–100; BMI 39.9
--- NOTE | 2022-01-29 | COLBX_PTH ---
PATIENT: SCARLETT STEVENS LOC: EN U#:[id number] AGE/SX: 86/M ROOM: RE01/29/[address]: Dr. Jamarcus Duran MD : [id number] BED: DIS: 01/29/2022 SPEC #: [id number] RECD: 01/29/22 11:03 STATUS: KAYLIN VERGARA #: [id number] JEAN CARLOS: 01/29/22 00:[address]: Jamarcus Duran DEPT: SURGICAL PATHOLOGY RECD BY: Selam Armendariz ENTERED: 01/29/22 11:42 SP TYPE: COLON BX OTHR DR: Dr. Daphne Woods MD Tissues: A - Cecum, NOS B - Transverse colon Procedures: Surgery Specimen Level IV HEADER OPERATION: Colonoscopy (MAC) PRE-OP DIAGNOSIS: 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 colon cancer, history of colon polyps TISSUE SUBMITTED: A ? Cecum polyps x3, B ? Mid transverse polyp MICROSCOPIC DIAGNOSIS A. Cecum polyps x3, biopsy: Fragments of tubular adenoma. B. Mid transverse colon polyp, biopsy: Fragments of tubular adenoma. CHANDRIKA:christiano 01/30/2022 MICROSCOPIC DESCRIPTION Slides are reviewed. GROSS DESCRIPTION A - Received in fixative is one container labeled with the patient's name and designated cecal polyps x3. The specimen consists of multiple irregular fragments of hyatt soft tissue mixed with fecal material that in aggregate measure 2.5 x 1 x 0.3 cm. The entire specimen is submitted in one cassette. B - Received in fixative is one container labeled with the patient's name and designated mid transverse polyp. The specimen consists of multiple irregular fragments of light hyatt soft tissue that in aggregate measure 1 x 0.5 x 0.1 cm. The specimen is totally submitted in one cassette. / CHANDRIKA:christiano 01/29/2022 TC:1 CPT: 51899 x2
[2022-01-29] MEDS: Lactated Ringers 1,000 ML 15 ML IV (07:45)
--- NOTE | 2022-01-29 07:56 | PCM.HP.BLA ---
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 Is patient in pain?: No Allergies peanut Allergy (Verified 01/07/22 13:29) Itchinglevofloxacin [From Levaquin] Adverse Reaction (Verified 01/07/22 13:29) Rash Medications saw palmetto 450 mg capsule 900 mg PO DAILY 05/18/14 [History Confirmed 01/07/22] cholecalciferol (vitamin D3) 25 mcg (1,000 unit) capsule 25 mcg PO DAILY 06/27/20 [History Confirmed 01/07/22] vit C 250 mg-vit E 90 mg-zinc 40 mg-copper 1 [id number] capsule (PreserVision AREDS-2) 1 tab PO DAILY supplement 06/27/20 [History Confirmed 01/07/22] nitroglycerin 0.4 mg sublingual tablet 0.4 mg sublingual Q5-15M PRN chest pain #25 tabs 08/28/20 [Rx Confirmed 01/07/22] metoprolol succinate 25 mg tablet,extended release 24 hr 25 mg PO DAILY #90 tabs 02/22/21 [Rx Confirmed 01/07/22] spironolactone 25 mg tablet 25 mg PO DAILY #90 tabs 06/08/21 [Rx Confirmed 01/07/22] clopidogrel 75 mg tablet 75 mg PO DAILY #90 tabs 08/27/21 [Rx Confirmed 01/07/22] apixaban 5 mg tablet (Eliquis) 5 mg PO BID #180 tabs 08/30/21 [Rx Confirmed 01/07/22] furosemide 40 mg tablet (Lasix) 40 mg PO DAILY #90 tabs 10/02/21 [Rx Confirmed 01/07/22] vitamin B complex 1 tab PO DAILY 10/02/21 [History Confirmed 01/07/22] atorvastatin 20 mg tablet 20 mg PO DAILY #90 tabs 11/29/21 [Rx Confirmed 01/07/22] PFSH Medical History? 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 History of cataract surgery History of colonoscopy with polypectomy History of coronary artery stent placement (08/17/20) History of orchiectomy History of transurethral resection of prostate Family History?(Updated 01/07/22 @ 13:27 by Roshni Friday) Brother Colon cancerMother HypertensionFather HypertensionOther No pertinent family history Social History? Smoking Status:? Never smoker alcohol intake:? never substance use type:? does not use caffeine:? Yes Type: coffee Number of servings: 2 HPI HPI HPI: SCARLETT STEVENS, is a 86 M who presents to the office today for surgical consultation regarding colonoscopy.? The patient is referred by Dr. Daphne Woods and a written copy of my surgical consult recommendations will be returned to him.? The patient has a brother who is from colon cancer.? The patient himself has had a personal history of colon polyps.? He presents with his today also has a family history of colon cancer.? It is of note that among his other medications he is on apixaban therapy for atrial fibrillation.? He is also on clopidogrel therapy as he has coronary stents. He states that he was able to split wood just the other day albeit slowly.? He states that he just recently had diuretic medication changed to less diuretic.? There was concerned about some relative hyponatremia.? He claims that he is feeling much better.? He denies chest pain.? He does not notice any significant dyspnea on exertion.? No bright red blood per rectum or melena. Previous colonoscopy was February 2014 with polyps found at that time.? Personal history of colon cancer in her brother ROS General General: No weight change, appetite, fatigue, colon cancer, breast cancer or weakness HEENT HEENT: No difficulty swallowing, eye injury, eye surgery, swollen glands or hoarseness Endo Endocrine: No thyroid disease, diabetes mellitus, thyroid cancer, Hair loss, heat intolerance or cold intolerance Skin Skin: No rash or changing moles Musc Musculoskeletal: No back problems, arthritis, rheumatoid arthritis, gout or joint pain Cardio Cardiovascular: Yes atrial fibrillation, high blood pressure and heart stent; No murmur, pacemaker, heart disease, heart attack, palpitations, shortness of breat with exertion or chest pain Psych Psychiatric: No depression, anxiety or hearing voices Resp Respiratory: No shortness of breath, No sleep apnea, Yes cough, No COPD, No asthma, No emphysema and No wheezing Gastro Gastrointestinal: No abdominal pain, No nausea or vomiting, No diarrhea, No constipation, No blood in stool, No acid reflux, No hemorrhoids, No ulcers, No gallbladder problem and No black,tarry stools Ponce Hematologic: Yes blood thinners, No blood disorders, No bleeding, No anemia and No blood clots Neuro Neurologic: No system reviewed and no additional complaints, except as documented, No as per HPI, No abnormal gait, No abnormal hearing, No abnormal movements, No abnormal speech, No behavioral changes, No burning sensations, No confusion, No convulsions, No disequilibrium, No dizziness, No localized weakness, No frequent falls, No headache(s), No lack of coordination, No loss of vision, No memory loss, No numbness, No other visual disturbances, No radicular pain, No restless legs, No sensory deficit, No syncope, No tingling, No tremor(s), No weakness and No other Exam Const General: cooperative, comfortable and no acute distress Nutritional Appearance: obese [facility] Head: normal to inspection Neck Neck: normal visual inspection Chest Other: Increased anterior posterior diameter Resp Effort & Inspection: normal respiratory effort Auscultation: clear to auscultation bilaterally Other: Patient was noted to be mildly dyspneic after moving from the chair to the exam table Cardio Rate: regular rate Rhythm: regular rhythm Other: Difficult to decipher cardiac sounds to the patient's body habitus GI Other: Notably overweight, I cannot detect any internal organs, no focal tenderness, normal bowel sounds Musc Cervical Spine: normal cervical lordosis Skin Other: Linear erythema right flank.? Patient apparently has leg rashes and urinary incontinence.? Referred back to primary care Neuro General: patient alert, patient awake and patient oriented x3 Extrem Other: Large bilateral lower extremities, nonpitting swelling noted Psych Appearance: grossly normal Assessment and Plan Assessment and Plan (1) Personal history of colonic polyps: ?Status:?Acute (2) 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 colon cancer: ?Status:?Acute ?Plan: 86-year-old gentleman.? Personal history of colon polyps and family history of colon cancer with his most recent colonoscopy February 2014 with recommendations for follow-up at 5 years.? He has atrial fibrillation and is on Eliquis therapy.? He has a history of coronary stents is on clopidogrel therapy.? I propose for him a colonoscopy with possible biopsy or polypectomy.? Due to his body habitus I recommend 2-day prep on day 1 bottle of magnesium citrate.? Because of his medical comorbidities I recommend holding his Eliquis 2 days preprocedure.? We will have him not take his Plavix the day of the procedure.? We will have monitored anesthesia care. He is aware of the benefit, risk, alternatives and complications. We will schedule and proceed at his discretion. Copy: Dr. Daphne Woods and Robby Peralta, ARAM-C Jamarcus Duran M.D., F.A.C.S The patient has developed some hematuria which is being worked up by primary care. No other acute changes. Jamarcus Duran M.D., F.A.C.S.
--- NOTE | 2022-01-29 09:37 | OP.CCLET_ITS ---
01/29/2022 Daphne Woods [facility] [address] [place] [address] Re : Colonoscopy procedure for Brayan Rhodes Dear Dr. Woods This procedure was performed on Saturday, January 29, 2022. My impressions and recommendations are as follows: Impressions : - Non-thrombosed internal hemorrhoids, internal hemorrhoids that prolapse with straining, but spontaneously regress to the resting position (Grade II) and enlarged prostate found on digital rectal exam. - One 17 mm polyp in the cecum, removed with a hot snare, removed using injection-lift and a hot snare, removed using lift and cut and a hot snare, removed piecemeal using a hot snare and removed with a cold snare. Resected and retrieved. Clip was placed. - One 4 mm polyp in the cecum, removed with a hot snare. Resected and retrieved. - One 5 mm polyp in the cecum, removed with a hot snare. Resected and retrieved. - One 4 mm polyp in the cecum, removed with a cold biopsy forceps. Resected and retrieved. - One 8 mm polyp in the mid transverse colon, removed with a hot snare. Resected and retrieved. - Diverticulosis in the sigmoid colon and in the descending colon. Recommendations : - Discharge patient to home. - Resume previous diet. - Continue present medications. - Repeat colonoscopy in 1 year for surveillance. - Telephone my office for pathology results in 1 week. My findings are described in the full procedure note, which is enclosed. If I can be of further assistance, please feel free to contact me at Doctor phone number(s): Work: . Sincerely, Jamarcus Duran MD 01/29/2022 9:36:30 AM This report has been signed electronically.
--- NOTE | 2022-01-29 09:37 | OP.COLON_ITS ---
Patient Name: Brayan Rhodes Procedure Date: 01/29/2022 8:41 AM Date of : 1935 Age: 86 Procedure: Colonoscopy Indications: High risk colon cancer surveillance: Personal history of colonic polyps Providers: Jamarcus Duran MD Referring MD: Daphne Woods Medicines: See the Anesthesia note for documentation of the administered medications Patient Profile: Last Colonoscopy: 2013. Complications: No immediate complications. Procedure: Pre-Anesthesia Assessment: - Prior to the procedure, a History and Physical was performed, and patient medications and allergies were reviewed. The patient's tolerance of previous anesthesia was also reviewed. The risks and benefits of the procedure and the sedation options and risks were discussed with the patient. All questions were answered, and informed consent was obtained. Prior Anticoagulants: The patient has taken Eliquis (apixaban), last dose was 2 days prior to procedure. ASA Grade Assessment: III - A patient with severe systemic disease. After reviewing the risks and benefits, the patient was deemed in satisfactory condition to undergo the procedure. After I obtained informed consent, the scope was passed under direct vision. Throughout the procedure, the patient's blood pressure, pulse, and oxygen saturations were monitored continuously. The colonoscope was introduced through the anus and advanced to the cecum, identified by appendiceal orifice and ileocecal valve. The colonoscopy was somewhat difficult. The patient tolerated the procedure well. The quality of the bowel preparation was good. The ileocecal valve and the appendiceal orifice were photographed. Scope In: 8:57:02 AM Scope Withdrawal Time 0 hours 23 minutes 33 seconds Scope Out: 9:27:20 AM Total Procedure Duration Time 0 hours 30 minutes 18 seconds Findings: The digital rectal exam findings include non-thrombosed internal hemorrhoids, internal hemorrhoids that prolapse with straining, but spontaneously regress to the resting position (Grade II) and enlarged prostate. A 17 mm polyp was found in the cecum. The polyp was sessile. The polyp was removed with a hot snare. The polyp was removed with a saline injection-lift technique using a hot snare. The polyp was removed with a lift and cut technique using a hot snare. The polyp was removed with a piecemeal technique using a hot snare. The polyp was removed with a cold snare. Resection and retrieval were complete. To prevent bleeding post-intervention, one hemostatic clip was successfully placed. There was no bleeding at the end of the procedure. A 4 mm polyp was found in the cecum. The polyp was sessile. The polyp was removed with a hot snare. Resection and retrieval were complete. A 5 mm polyp was found in the cecum. The polyp was sessile. The polyp was removed with a hot snare. Resection and retrieval were complete. A 4 mm polyp was found in the cecum. The polyp was sessile. The polyp was removed with a cold biopsy forceps. Resection and retrieval were complete. A 8 mm polyp was found in the mid transverse colon. The polyp was sessile. The polyp was removed with a hot snare. Resection and retrieval were complete. Multiple diverticula were found in the sigmoid colon and descending colon. Impression: - Non-thrombosed internal hemorrhoids, internal hemorrhoids that prolapse with straining, but spontaneously regress to the resting position (Grade II) and enlarged prostate found on digital rectal exam. - One 17 mm polyp in the cecum, removed with a hot snare, removed using injection-lift and a hot snare, removed using lift and cut and a hot snare, removed piecemeal using a hot snare and removed with a cold snare. Resected and retrieved. Clip was placed. - One 4 mm polyp in the cecum, removed with a hot snare. Resected and retrieved. - One 5 mm polyp in the cecum, removed with a hot snare. Resected and retrieved. - One 4 mm polyp in the cecum, removed with a cold biopsy forceps. Resected and retrieved. - One 8 mm polyp in the mid transverse colon, removed with a hot snare. Resected and retrieved. - Diverticulosis in the sigmoid colon and in the descending colon. Recommendation: - Discharge patient to home. - Resume previous diet. - Continue present medications. - Repeat colonoscopy in 1 year for surveillance. - Telephone my office for pathology results in 1 week. Procedure Code(s): --- Professional --- 85642, Colonoscopy, flexible; with removal of tumor(s), polyp(s), or other lesion(s) by snare technique 53379, Colonoscopy, flexible; with directed submucosal injection(s), any substance 37538, 59, Colonoscopy, flexible; with biopsy, single or multiple Diagnosis Code(s): --- Professional --- Z86.010, Personal history of colonic polyps D12.0, Benign neoplasm of cecum D12.3, Benign neoplasm of transverse colon (hepatic flexure or splenic flexure) K64.1, Second degree hemorrhoids N40.0, Benign prostatic hyperplasia without lower urinary tract symptoms K57.30, Diverticulosis of large intestine without perforation or abscess without bleeding CPT copyright 2017 [employer]. All rights reserved. The codes documented in this report are preliminary and upon relief charge nurse review may be revised to meet current compliance requirements. Jamarcus Duran MD 01/29/2022 9:36:30 AM This report has been signed electronically. Number of Addenda: 0 Note Initiated On: 01/29/2022 8:41 AM
== END 2022-01-29 10:49 | disposition home or self-care (01) ==
LOC: EN 07:30 → AC 07:31
PROVIDERS: PCP Internal Medicine; Referring Provider Internal Medicine; Visit Provider Surgery
PROC: 0DJD8ZZ Inspection of Lower Intestinal Tract, Via Natural or Artificial Opening Endoscopic (ICD-10-PCS; CPT 45378; principal; 2022-01-29 08:40)
DX: Z12.11 Encounter for screening for malignant neoplasm of colon (principal); I11.0 Hypertensive heart disease with heart failure; I50.32 Chronic diastolic (congestive) heart failure; I48.0 Paroxysmal atrial fibrillation; D12.0 Benign neoplasm of cecum; D12.3 Benign neoplasm of transverse colon; K57.30 Diverticulosis of large intestine without perforation or abscess without bleeding; K64.1 Second degree hemorrhoids; N40.0 Benign prostatic hyperplasia without lower urinary tract symptoms; I25.10 Atherosclerotic heart disease of native coronary artery without angina pectoris; G47.33 Obstructive sleep apnea (adult) (pediatric); E66.9 Obesity, unspecified; E78.5 Hyperlipidemia, unspecified; Z80.0 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 malignant neoplasm of digestive organs; Z79.899 Other long term (current) drug therapy; Z79.01 Long term (current) use of anticoagulants; Z86.010 Personal history of colon polyps; Z95.5 Presence of coronary angioplasty implant and graft; Z68.39 Body mass index [BMI] 39.0-39.9, adult
CPT/HCPCS: 45385; 45380; 45381; 88305; J7120; A4216; J2405

== ENCOUNTER → 2022-02-14 | Outpatient (CLI) | payer MEDICARE, OTHER, SELFPAY ==
[2020-10-23 07:23] VITALS: BMI 35.6
== END | disposition home or self-care (01) ==
LOC: LABSPEC 15:50
PROVIDERS: PCP Internal Medicine; Referring Provider Urology; Visit Provider Urology
DX: N30.01 Acute cystitis with hematuria (principal)
CPT/HCPCS: 87077; 87086; 87088; 87186

== ENCOUNTER → 2022-06-06 | Outpatient (CLI) | payer MEDICARE, OTHER, SELFPAY ==
[2020-10-23 07:23] VITALS: BMI 35.6
[2022-06-06 09:29] LABS: Absolute Lymphocyte Count 1.33 X10^3/uL (0.83-4.51); Absolute Neutrophil Count 2.9 X10^3/uL (2.0-7.7); Basophil# 0.07 X10^3/uL; Basophil% 1.4 % (0-1); Eosinophil# 0.15 X10^3/uL; Hematocrit 37.7 % (40-54); Hemoglobin 12.5 g/dL (13.0-16.5); Lymphocyte # 1.33 X10^3/ul (0.83-4.51); Lymphocyte % 26.4 % (19-41); Mean Corp Hgb Conc 33.2 g/dL (32-36); Mean Corpuscular Hgb 31.3 pg (27.0-32.0); Mean Corpuscular Volume 94.5 fL (80-94); Mean Platelet Vol. 11.1 fl (6.2-12.0); Monocyte# 0.56 X10^3/uL; Monocyte% 11.1 % (0-10); NRBC Flagged by Analyzer 0 % (0-5); Neutrophil # 2.91 X10^3/uL (2.7-7.7); Neutrophil % 57.7 % (47-70); Platelet Count 162 K/mm3 (150-450); RBC Distribution Width CV 12.9 % (11.6-14.6); RBC Distribution Width SD 44.1 fl (35.1-43.9); Red Blood Count 3.99 M/mm3 (4.6-6.2)
[2022-06-06 10:02] LABS: Vitamin D,25 Hydroxy 55.5 ng/mL
[2022-06-06 10:07] LABS: AST(SGOT) 23 U/L (15-37); Alanine Aminotransfer ALT/SGPT 22 U/L (16-61); Albumin, Serum 3.7 g/dL (3.2-5.0); Alkaline Phosphatase 107 U/L (45-117); Anion Gap 8 (5-15); BUN 19 mg/dL (7-18); BUN/Creat Ratio 16.5 RATIO (10-20); Calcium,Total 9.3 mg/dL (8.5-10.1); Chloride 105 mmol/L (98-107); Cholesterol 111 mg/dL (200); Creatinine, Serum 1.15 mg/dL (0.70-1.30); EST Glomerular Filtration Rate 64 mL/min (>60); Est Glom Filt Rate - Afr Amer 78 mL/min (>60); Globulin 3.8 g/dL (2.2-4.2); Glucose 103 mg/dL (74-106); High Density Lipoprotein 56 mg/dL; Potassium 4.2 mmol/L (3.5-5.1); Protein, Total 7.5 g/dL (6.4-8.2); Sodium Level 138 mmol/L (136-145); Thyroid Stim Hormone (TSH) 3.57 uIU/mL (0.358-3.74); Triglycerides 63 mg/dL; Very Low Density Lipoprotein 13 mg/dL (5-40)
--- NOTE | 2022-06-06 12:03 | VDLE_ITS ---
Reason For Study: LEG PAIN AND SWELLING RIGHT LEFT CFV is compressible, spontaneous, competent GSV is normal. and demonstrates pulsatile venous flow. CFV is compressible, spontaneous, competent, Procedure and demonstrates pulsatile venous flow. This is a venous duplex using B-mode, color FV is compressible, spontaneous, competent flow and spectral Doppler. and demonstrates pulsatile venous flow. Exam performed in department. POP V is compressible, spontaneous, competent The exam was diagnostic. and demonstrates pulsatile venous flow. A preliminary report was called and/or faxed T/P Trunk is compressible. to Dr. Woods. PTV is compressible. LT PerV is compressible. Possible muscle trauma or injury seen in the medial head of the LT Gastrocnemius muscle. VL/Venous Duplex US, Unilateral Interpretation Summary There is no evidence of left lower extremity deep vein thrombosis. Left great s aphenous vein appears patent and compressible segmentally. Discussion of possible muscle trauma media l head of the left gastrocnemius muscle however this vascular study is not characterized to assess that. Pulsatile venous flow noted consistent with proximal venous hypertension or obs truction. Clinical correlation would be appropriate. Ordering Physician: Daphne Woods Referring Physician: Daphne Woods M.D. Performed By: Andrew Angel RVT
== END | disposition home or self-care (01) ==
LOC: CVS 08:45
PROVIDERS: PCP Internal Medicine; Visit Provider Internal Medicine
DX: M79.89 Other specified soft tissue disorders (principal); J44.9 Chronic obstructive pulmonary disease, unspecified; M79.652 Pain in left thigh; G47.33 Obstructive sleep apnea (adult) (pediatric); R31.9 Hematuria, unspecified; E55.9 Vitamin D deficiency, unspecified; E66.9 Obesity, unspecified; E87.1 Hypo-osmolality and hyponatremia; I10 Essential (primary) hypertension; Z95.5 Presence of coronary angioplasty implant and graft; E78.5 Hyperlipidemia, unspecified
CPT/HCPCS: 36415; 80053; 80061; 82306; 84443; 85025; 93971

== ENCOUNTER 2023-02-25 05:23 | Day surgery (SDC) | payer MEDICARE, OTHER, SELFPAY ==
[2020-10-23 07:23] VITALS: BMI 35.6
[2023-02-25] VITALS (7 sets, daily range): BP systolic 101–131; BP diastolic 55–78; PULSE 56–70; RESP 16–18; TEMP 36.2–36.3; O2SAT 95–99; BMI 40.1
--- NOTE | 2023-02-25 05:55 | PCM.HP.BLA ---
History and Physical Date of Admission: 02/25/23 Visit Reasons: Yearly C-Scope Rec Recall Letter Chief Complaint: yearly c-cope recall letter Is patient in pain?: No Allergies peanut Allergy (Verified 02/03/23 13:09) Itchinglevofloxacin [From Levaquin] Adverse Reaction (Verified 02/03/23 13:09) Rash Medications saw palmetto 450 mg capsule 900 mg PO DAILY 05/18/14 [History Confirmed 02/03/23] cholecalciferol (vitamin D3) 25 mcg (1,000 unit) capsule 25 mcg PO DAILY 06/27/20 [History Confirmed 02/03/23] vit C 250 mg-vit E 90 mg-zinc 40 mg-copper 1 [id number]-ohywee-ycojkw capsule (PreserVision AREDS-2) 1 tab PO DAILY supplement 06/27/20 [History Confirmed 02/03/23] vitamin B complex 1 tab PO DAILY 10/02/21 [History Confirmed 02/03/23] metoprolol succinate 25 mg tablet,extended release 24 hr 25 mg PO DAILY #90 tabs 02/25/22 [Rx Confirmed 02/03/23] spironolactone 25 mg tablet 25 mg PO DAILY #90 tabs 05/22/22 [Rx Confirmed 02/03/23] finasteride 5 mg tablet 5 mg PO DAILY 06/03/22 [History Confirmed 02/03/23] tamsulosin 0.4 mg capsule 0.4 mg PO DAILY 06/03/22 [History Confirmed 02/03/23] apixaban 5 mg tablet (Eliquis) 5 mg PO BID #180 tabs 06/05/22 [Rx Confirmed 02/03/23] aspirin 81 mg tablet,delayed release (Adult Aspirin Regimen) 81 mg PO QDAY #90 tabs 10/31/22 [Rx Confirmed 02/03/23] furosemide 40 mg tablet 40 mg PO DAILY #90 tabs 10/31/22 [Rx Confirmed 02/03/23] nitroglycerin 0.4 mg sublingual tablet 0.4 mg sublingual Q5-15M PRN chest pain #25 tabs 10/31/22 [Rx Confirmed 02/03/23] tumeric 100 mg-nomi 150 mg-olive 50 mg-oreg 150 mg-caprylate capsule 1 cap PO DAILY 10/31/22 [History Confirmed 02/03/23] atorvastatin 20 mg tablet (Lipitor) 20 mg PO DAILY #90 tabs 12/02/22 [Rx Confirmed 02/03/23] PFSH Medical History Arthritis 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 Cardiology follow-up encounter Chewing tobacco use Chronic diastolic (congestive) heart failure COPD (chronic obstructive pulmonary disease) Diverticulitis Epistaxis Essential (primary) hypertension Hiatal hernia History of edema Hyperlipidemia Hypersomnia Hypoxia Insect bite of hand with infection Leg swelling Non-smoker Obstructive sleep apnea Olecranon bursitis, right elbow Persistent atrial fibrillation Rash Renal cyst Strain of tendon of right rotator cuff Syncope and collapse Wears glasses Wears hearing aid Wears partial dentures Surgical History History of cataract surgery History of colonoscopy with polypectomy History of coronary artery stent placement (08/17/20) History of orchiectomy History of transurethral resection of prostate Family History Brother Colon cancerMother HypertensionFather HypertensionOther No pertinent family history Social History Smoking Status: Never smoker alcohol intake: never substance use type: does not use caffeine: Yes Type: coffee Number of servings: 2 HPI HPI HPI: 87-year-old gentleman. On January 29, 2022 I assisted him with a colonoscopy. A 17 mm polyp was found in the cecum and removed removed with saline lift and hot snare. Hemostatic clip was placed. An additional 4 mm polyp was formed found in the cecum and additional 5 mm polyp and additional formalin polyp in the cecum and then an additional 8 mm polyp was found in the mid transverse colon. 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 The patient is on apixaban and aspirin in addition to his other medications. The patient has a family history of colon cancer with a brother who of colon cancer. The patient's been advised to try to lose weight. Claims that he went through postcardiac rehab. However he has actually gained some weight. He moves slowly and uses a cane ROS General General: Yes weight change and fatigue; No appetite, colon cancer, breast cancer or weakness HEENT HEENT: No difficulty swallowing, eye injury, eye surgery, swollen glands or hoarseness Endo Endocrine: No thyroid disease, diabetes mellitus, thyroid cancer, Hair loss, heat intolerance or cold intolerance Skin Skin: No rash or changing moles Musc Musculoskeletal: Yes arthritis; No back problems, rheumatoid arthritis, gout or joint pain Cardio Cardiovascular: Yes heart disease, atrial fibrillation, high blood pressure and heart stent; No murmur, pacemaker, heart attack, palpitations, shortness of breat with exertion or chest pain Psych Psychiatric: No depression, anxiety or hearing voices Resp Respiratory: Yes shortness of breath, No sleep apnea, No cough, No COPD, No asthma, No emphysema and No wheezing Gastro Gastrointestinal: No abdominal pain, No nausea or vomiting, No diarrhea, No constipation, No blood in stool, No acid reflux, Yes hemorrhoids, No ulcers, No gallbladder problem and No black,tarry stools Ponce Hematologic: Yes blood thinners, No blood disorders, No bleeding, No anemia and No blood clots Neuro Neurologic: No system reviewed and no additional complaints, except as documented, No as per HPI, No abnormal gait, No abnormal hearing, No abnormal movements, No abnormal speech, No behavioral changes, No burning sensations, No confusion, No convulsions, No disequilibrium, No dizziness, No localized weakness, No frequent falls, No headache(s), No lack of coordination, No loss of vision, No memory loss, No numbness, No other visual disturbances, No radicular pain, No restless legs, No sensory deficit, No syncope, No tingling, No tremor(s), No weakness and No other Exam Const General: cooperative, comfortable and no acute distress Nutritional Appearance: obese morbidly obese [facility] Head: normal to inspection Eyes General: appearance normal, both eyes and all related structures Chest Chest palpation & inspection: normal inspection of the chest Resp Effort & Inspection: normal respiratory effort Auscultation: clear to auscultation bilaterally Cardio Other: Irregular rate GI Other: Overweight, I am not able to determine any internal organs Neuro General: patient alert, patient awake and patient oriented x3 Extrem Other: 2+ bilateral extremity nonpitting edema Psych Appearance: grossly normal Assessment and Plan Assessment and Plan (1) Personal history of colonic polyps: Status: Acute (2) 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 colon cancer: Status: Acute (3) senior living current use of anticoagulant: Status: 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 He is aware of the technique, benefit, risk and alternatives. He has been additionally encouraged to try to convert more to a vegetarian lifestyle and lose some weight. We will utilize monitored anesthesia care. We will ask him to hold his Eliquis for 2 days preprocedure. He has had an opportunity to ask and have questions answered. We will utilize an adult scope for the procedure. I appreciate the ongoing option of assisting with the surgical care. Copy: Dr. Daphne Duran M.D., F.A.C.S I have examined the patient and the H&P has been reviewed. There are no clinical changes since date of exam. Jamarcus Duran M.D., F.A.C.S.
[2023-02-25] MEDS: Lactated Ringers 1,000 ML 15 ML IV (06:00)
--- NOTE | 2023-02-25 06:30 | COLBX_PTH ---
PATIENT: SCARLETT STEVENS LOC: EN U#:[id number] AGE/SX: 87/M ROOM: RE02/25/[address]: Dr. Jamarcus Duran MD : 1935 BED: DIS: 02/25/2023 SPEC #: [id number] RECD: 02/25/23 09:53 STATUS: KAYLIN VERGARA #: [id number] JEAN CARLOS: 02/25/23 06:[address]: Jamarcus Duran DEPT: SURGICAL PATHOLOGY RECD BY: Selam Armendariz ENTERED: 02/25/23 10:15 SP TYPE: COLON BX OTHR DR: Dr. Daphne Woods MD Tissues: Cecum, NOS Procedures: Surgery Specimen Level IV HEADER OPERATION: Colonoscopy with biopsies and clip application PRE-OP DIAGNOSIS: History of colonic polyps TISSUE SUBMITTED: Cecum polyp x3 MICROSCOPIC DIAGNOSIS Cecum polyp x3, biopsy: Fragments of tubular adenoma. SJ:christiano 02/26/2023 MICROSCOPIC DESCRIPTION Slides are reviewed. GROSS DESCRIPTION Received in fixative is one container labeled with the patient's name and designated cecum polyp x3. The specimen consists of multiple irregular fragments of light hyatt soft tissue mixed with fecal material that in aggregate measure 2.0 x 0.3 x 0.1 cm. The specimen is totally submitted in one cassette. / SJ:rg 02/25/2023 TC:1 CPT: 80864
--- NOTE | 2023-02-25 07:07 | OP.COLON_ITS ---
Patient Name: Brayan Rhodes Procedure Date: 02/25/2023 6:17 AM Date of : 1935 Age: 87 Procedure: Colonoscopy Indications: High risk colon cancer surveillance: Personal history of colonic polyps Providers: Jamarcus Duran MD Medicines: See the Anesthesia note for documentation of the administered medications Patient Profile: Last Colonoscopy: 1 year ago. Complications: No immediate complications. Procedure: Pre-Anesthesia Assessment: - Prior to the procedure, a History and Physical was performed, and patient medications and allergies were reviewed. The patient's tolerance of previous anesthesia was also reviewed. The risks and benefits of the procedure and the sedation options and risks were discussed with the patient. All questions were answered, and informed consent was obtained. Prior Anticoagulants: The patient has taken Eliquis (apixaban), last dose was 2 days prior to procedure. ASA Grade Assessment: II - A patient with mild systemic disease. After reviewing the risks and benefits, the patient was deemed in satisfactory condition to undergo the procedure. After I obtained informed consent, the scope was passed under direct vision. Throughout the procedure, the patient's blood pressure, pulse, and oxygen saturations were monitored continuously. The adult colonoscope was introduced through the anus and advanced to the cecum, identified by appendiceal orifice and ileocecal valve. The colonoscopy was performed without difficulty. The patient tolerated the procedure well. The quality of the bowel preparation was good. The ileocecal valve and the appendiceal orifice were photographed. Scope In: 6:45:28 AM Scope Withdrawal Time 0 hours 11 minutes 24 seconds Scope Out: 7:01:05 AM Total Procedure Duration Time 0 hours 15 minutes 37 seconds Findings: The digital rectal exam findings include non-thrombosed internal hemorrhoids and internal hemorrhoids that prolapse with straining, but spontaneously regress to the resting position (Grade II). Three sessile polyps were found in the cecum. The polyps were 4 to 6 mm in size. These polyps were removed with a cold snare. Resection and retrieval were complete. To prevent bleeding post-intervention, one hemostatic clip was successfully placed. There was no bleeding at the end of the procedure. A few diverticula were found in the sigmoid colon. Impression: - Non-thrombosed internal hemorrhoids and internal hemorrhoids that prolapse with straining, but spontaneously regress to the resting position (Grade II) found on digital rectal exam. - Three 4 to 6 mm polyps in the cecum, removed with a cold snare. Resected and retrieved. Clip was placed. - Diverticulosis in the sigmoid colon. Recommendation: - Discharge patient to home. - Resume previous diet. - Continue present medications. - Repeat colonoscopy in 3 years for surveillance based on pathology results. - Telephone my office for pathology results in 1 week. Procedure Code(s): --- Professional --- 23613, Colonoscopy, flexible; with removal of tumor(s), polyp(s), or other lesion(s) by snare technique Diagnosis Code(s): --- Professional --- Z86.010, Personal history of colonic polyps K64.1, Second degree hemorrhoids D12.0, Benign neoplasm of cecum K57.30, Diverticulosis of large intestine without perforation or abscess without bleeding CPT copyright 2017 [employer]. All rights reserved. The codes documented in this report are preliminary and upon grain sacker review may be revised to meet current compliance requirements. Jamarcus Duran MD 02/25/2023 7:06:05 AM This report has been signed electronically. Number of Addenda: 0 Note Initiated On: 02/25/2023 6:17 AM
--- NOTE | 2023-02-25 07:07 | OP.CCLET_ITS ---
02/25/2023 Daphne Woods [facility] [address] [place] [address] Re : Colonoscopy procedure for Brayan Rhodes Dear Dr. Woods This procedure was performed on Saturday, February 25, 2023. My impressions and recommendations are as follows: Impressions : - Non-thrombosed internal hemorrhoids and internal hemorrhoids that prolapse with straining, but spontaneously regress to the resting position (Grade II) found on digital rectal exam. - Three 4 to 6 mm polyps in the cecum, removed with a cold snare. Resected and retrieved. Clip was placed. - Diverticulosis in the sigmoid colon. Recommendations : - Discharge patient to home. - Resume previous diet. - Continue present medications. - Repeat colonoscopy in 3 years for surveillance based on pathology results. - Telephone my office for pathology results in 1 week. My findings are described in the full procedure note, which is enclosed. If I can be of further assistance, please feel free to contact me at Doctor phone number(s): Work: . Sincerely, Jamarcus Duran MD 02/25/2023 7:06:05 AM This report has been signed electronically.
== END 2023-02-25 07:52 | disposition home or self-care (01) ==
LOC: EN 05:23 → AC 05:24
PROVIDERS: PCP Internal Medicine; Referring Provider Surgery; Visit Provider Surgery
PROC: 0DJD8ZZ Inspection of Lower Intestinal Tract, Via Natural or Artificial Opening Endoscopic (ICD-10-PCS; CPT 45378; principal; 2023-02-25 06:25)
DX: Z12.11 Encounter for screening for malignant neoplasm of colon (principal); J44.9 Chronic obstructive pulmonary disease, unspecified; I50.32 Chronic diastolic (congestive) heart failure; I11.0 Hypertensive heart disease with heart failure; Z68.41 Body mass index [BMI] 40.0-44.9, adult; K57.30 Diverticulosis of large intestine without perforation or abscess without bleeding; Z80.0 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 malignant neoplasm of digestive organs; I25.10 Atherosclerotic heart disease of native coronary artery without angina pectoris; Z86.010 Personal history of colon polyps; Z79.01 Long term (current) use of anticoagulants; E78.5 Hyperlipidemia, unspecified; K64.1 Second degree hemorrhoids; Z79.82 Long term (current) use of aspirin; Z79.899 Other long term (current) drug therapy; Z95.5 Presence of coronary angioplasty implant and graft; E66.9 Obesity, unspecified; Z87.19 Personal history of other diseases of the digestive system; D12.0 Benign neoplasm of cecum
CPT/HCPCS: 45385; 88305; J7120; J2405

== ENCOUNTER → 2023-04-29 | Outpatient (CLI) | payer MEDICARE, OTHER, SELFPAY ==
[2020-10-23 07:23] VITALS: BMI 35.6
--- NOTE | 2023-04-29 12:28 | RAD_ITS ---
STUDY: X-RAY CHEST REASON FOR EXAM: Male, 88 years old. Cough, SOB TECHNIQUE: PA and lateral views of the chest. COMPARISON: None. FINDINGS: The lungs are clear and expanded. There is no demonstrated pleural abnormality. There is moderate cardiac enlargement. Normal mediastinum and trisha. Normal visualized pulmonary arteries. Normal visualized aortic arch and descending thoracic aorta. Normal visualized thoracic spine. Normal visualized ribs, clavicles, and shoulders. There is no demonstrated abnormality of the visualized soft tissue structures of the upper abdomen. RAD/Chest PA and Lateral IMPRESSION: No active disease. Cardiomegaly Electronically Signed: Robert Araujo MD at 17:55 EDT ,
[2023-04-29 13:27] LABS: Absolute Lymphocyte Count 1.17 X10^3/uL (0.83-4.51); Basophil# 0.12 X10^3/uL; Basophil% 1.7 % (0-1); Eosinophil# 0.15 X10^3/uL; Eosinophils% 2.1 % (0-5); Hematocrit 38.5 % (40-54); Hemoglobin 12.6 g/dL (13.0-16.5); Lymphocyte # 1.17 X10^3/ul (0.83-4.51); Lymphocyte % 16.3 % (19-41); Mean Corp Hgb Conc 32.7 g/dL (32-36); Mean Corpuscular Hgb 31.2 pg (27.0-32.0); Mean Corpuscular Volume 95.3 fL (80-94); Monocyte# 0.68 X10^3/uL; Monocyte% 9.5 % (0-10); NRBC Flagged by Analyzer 0 % (0-5); Neutrophil # 5.02 X10^3/uL (2.7-7.7); Platelet Count 212 K/mm3 (150-450); RBC Distribution Width CV 12.7 % (11.6-14.6); RBC Distribution Width SD 44.8 fl (35.1-43.9); Red Blood Count 4.04 M/mm3 (4.6-6.2); White Blood Count 7.2 K/mm3 (4.4-11.0)
[2023-04-29 13:48] LABS: Anion Gap 7 (5-15); BUN 19 mg/dL (7-18); BUN/Creat Ratio 17.6 RATIO (10-20); Calcium,Total 9.2 mg/dL (8.5-10.1); Chloride 102 mmol/L (98-107); Creatinine, Serum 1.08 mg/dL (0.70-1.30); EST Glomerular Filtration Rate 69 mL/min (>60); Est Glom Filt Rate - Afr Amer 83 mL/min (>60); Glucose 96 mg/dL (74-106); Potassium 4.3 mmol/L (3.5-5.1); Sodium Level 133 mmol/L (136-145)
[2023-04-29 13:49] LABS: BNP,B-Type NATRIURETIC PEPTIDE 168.6 pg/mL (0-100)
== END | disposition home or self-care (01) ==
PROVIDERS: PCP Internal Medicine; Referring Provider Nurse Practitioner Family; Visit Provider Nurse Practitioner Family
DX: G47.33 Obstructive sleep apnea (adult) (pediatric) (principal); I50.32 Chronic diastolic (congestive) heart failure; I11.0 Hypertensive heart disease with heart failure; R06.00 Dyspnea, unspecified; E78.5 Hyperlipidemia, unspecified; Z95.5 Presence of coronary angioplasty implant and graft
CPT/HCPCS: 36415; 71046; 80048; 83880; 85025

== ENCOUNTER → 2023-05-20 | Outpatient (CLI) | payer MEDICARE, OTHER, SELFPAY ==
[2020-10-23 07:23] VITALS: BMI 35.6
--- NOTE | 2023-05-20 12:54 | ECHOCS_ITS ---
Reason For Study: Dyspnea/SOB Procedure This was a 2D Doppler, Color Flow transthoracic echocardiogram. The study was technically difficult. Contrast injection was performed. Exam performed in department. Left Ventricle Normal LV size. Severe concentric left ventricular hypertrophy. Left ventricular systolic function is normal. The estimated ejection fraction is 55 %. No regional wall motion abnormalities noted. Right Ventricle Normal RV size. Normal systolic function. Atria The left atrium is mildly enlarged. The right atrium is mildly enlarged. Tricuspid Valve Normal tricuspid valve. Mild tricuspid valve insufficiency. Pulmonary artery systolic pressure is 30 mmHg. Pulmonic Valve The pulmonic valve is not well visualized. Great Vessels Mildly dilated aortic root. The pulmonary is not well visualized. Pericardium/Pleural No pericardial effusion. Medication 22 gauge I.V. with prn adaptor inserted into left arm. Diluted definity 2ml given slow IV push to enhance endocardial definition. MMode/2D Measurements & Calculations LVIDd: 4.5 cm IVSd: 1.7 cm Ao root diam: 3.8 cm LVIDs: 3.2 cm LVPWd: 1.7 cm LA dimension: 4.8 cm FS: 28.4 % LAV(MOD-sp4): 84.6 ml LA A4 area: 25.2 cm2 RA A4 area: 23.8 cm2 TAPSE: 1.5 cm Doppler Measurements & Calculations MV E max roman: 81.8 cm/sec MV V2 max: 85.5 cm/sec Ao V2 max: 103.9 cm/sec MV max P.9 mmHg Ao max P.3 mmHg MV V2 mean: 42.2 cm/sec MV mean P.92 mmHg MV V2 VTI: 28.2 cm LV V1 max: 79.0 cm/sec PA V2 max: 64.3 cm/sec PI dec slope: 67.8 cm/sec2 LV V1 max P.5 mmHg TR max roman: 261.2 cm/sec TR max P.3 mmHg ECHO/Echo Complete W/ Contrast Interpretation Summary Normal LV size. Left ventricular systolic function is normal. The estimated ejection fraction is 55 %. Severe concentric left ventricular hypertrophy. Contrast injection was performed. Ordering Physician: Robby Peralta Referring Physician: Chuck Performed By: Thuan Lay RCS
== END | disposition home or self-care (01) ==
PROVIDERS: PCP Internal Medicine; Referring Provider Nurse Practitioner Family; Visit Provider Nurse Practitioner Family
DX: R06.00 Dyspnea, unspecified (principal); G47.33 Obstructive sleep apnea (adult) (pediatric)
CPT/HCPCS: 93306; Q9957; A4216; C8929

== ENCOUNTER 2023-09-23 12:31 | Inpatient (IN) | payer MEDICARE, OTHER, SELFPAY ==
[2020-10-23 07:23] VITALS: BMI 35.6
[2023-09-23] VITALS (8 sets, daily range): BP systolic 110–140; BP diastolic 63–90; PULSE 53–68; RESP 18–26; TEMP 35.8–36.6; O2SAT 97–100; BMI 39.5
--- NOTE | 2023-09-23 13:29 | EKG12_ITS ---
Test Reason : SOB Blood Pressure : / mmHG Vent. Rate : 055 BPM Atrial Rate : 000 BPM P-R Int : 000 ms QRS Dur : 140 ms QT Int : 522 ms P-R-T Axes : 000 269 061 degrees QTc Int : 499 ms Atrial fibrillation with slow ventricular response Right bundle branch block Left axis deviation Anterolateral infarct , age undetermined Abnormal ECG Confirmed by Lele Rabago ([id number]), assignment editor HIRA PANDEY ([id number]) on 09/24/2023 9:38:25 AM Referred By: Kojo Confirmed By:Lele Rabago
[2023-09-23 14:07] LABS: Absolute Lymphocyte Count 0.86 X10^3/uL (0.83-4.51); Basophil# 0.07 X10^3/uL; Basophil% 1.3 % (0-1); Eosinophil# 0.08 X10^3/uL; Eosinophils% 1.4 % (0-5); Hemoglobin 12.8 g/dL (13.0-16.5); Lymphocyte # 0.86 X10^3/ul (0.83-4.51); Lymphocyte % 15.4 % (19-41); Mean Corp Hgb Conc 35.6 g/dL (32-36); Mean Corpuscular Hgb 31.3 pg (27.0-32.0); Mean Platelet Vol. 9.8 fl (6.2-12.0); Monocyte# 0.59 X10^3/uL; Monocyte% 10.5 % (0-10); NRBC Flagged by Analyzer 0 % (0-5); Neutrophil # 3.98 X10^3/uL (2.7-7.7); Platelet Count 201 K/mm3 (150-450); RBC Distribution Width CV 12.2 % (11.6-14.6); RBC Distribution Width SD 39.5 fl (35.1-43.9); Red Blood Count 4.09 M/mm3 (4.6-6.2); White Blood Count 5.6 K/mm3 (4.4-11.0)
--- NOTE | 2023-09-23 14:14 | RAD_ITS ---
INDICATION: Shortness of breath EXAMINATION/TECHNIQUE: X-RAY - XR Chest 1 View COMPARISON: April 29, 2023 FINDINGS: LINES/DEVICES: None. LUNGS: No consolidation, edema or effusion. No pneumothorax. MEDIASTINUM AND CARDIOVASCULAR STRUCTURES: There is cardiomegaly. Central airways and mediastinal contour are unremarkable. BONES AND SOFT TISSUES: Unremarkable. RAD/Chest 1 View (Portable) IMPRESSION: Cardiomegaly. Electronically Signed: Nida Paris MD at 14:26 EST ,
[2023-09-23 14:27] LABS: BNP,B-Type NATRIURETIC PEPTIDE 162.6 pg/mL (0-100)
[2023-09-23 14:28] LABS: AST(SGOT) 24 U/L (15-37); Alanine Aminotransfer ALT/SGPT 21 U/L (16-61); Albumin, Serum 3.7 g/dL (3.2-5.0); Alkaline Phosphatase 142 U/L (45-117); Anion Gap 10 (5-15); BUN 16 mg/dL (7-18); Bilirubin, Direct 0.41 mg/dL (0.00-0.30); Calcium,Total 9.3 mg/dL (8.5-10.1); Chloride 94 mmol/L (98-107); Creatinine, Serum 1.14 mg/dL (0.70-1.30); EST Glomerular Filtration Rate 65 mL/min (>60); Est Glom Filt Rate - Afr Amer 78 mL/min (>60); Globulin 3.9 g/dL (2.2-4.2); Glucose 108 mg/dL (74-106); Potassium 4.1 mmol/L (3.5-5.1); Protein, Total 7.6 g/dL (6.4-8.2); Sodium Level 128 mmol/L (136-145); Troponin-I HS 46 pg/mL (3.0-78.0)
[2023-09-23 14:56] LABS: Bacteria 0 SEEN /hpf (None Seen); Mucous, Urine 0 SEEN /hpf (<or=2+); Red Blood Cells-Urine 0 SEEN /hpf (0-5); Squamous Epithelial Cells - UA 0 SEEN /hpf (0-5); White Blood Cells 0 SEEN /hpf (0-5)
[2023-09-23 15:08] LABS: Color, Urine Straw (Yellow); Glucose, Dipstick Normal (Normal); Ketone-Dipstick Negative (Negative); Leukocyte Esterase-Dipstick Negative /ul (Negative); Nitrite-Dipstick Negative (Negative); Occult Blood-Urine Negative /ul (Negative); Protein-Dipstick Negative (Negative); Urine Bilirubin Dipstick Negative (Negative); Urine Clarity Clear (Clear); Urine Urobilinogen Normal (Normal)
--- NOTE | 2023-09-23 15:51 | EX.ED.DYSGE1 ---
HPI History of Present Illness Chief Complaint: Shortness of Breath Informant: patient and spouse/S.O. Narrative Narrative: Patient presents with continued and worsening shortness of breath and generalized weakness. Symptoms been ongoing for several weeks, but spouse states that seems to be worse over the past week. Patient states he takes small shuffling steps and will get very short of breath with the slightest exertion. He has had some intermittent left-sided chest pain but denies any chest pain today. Patient does have cardiac history with stents. He is on Eliquis chronically. He also has a history of COPD and CHF. 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 Cardiology follow-up encounter Chewing tobacco use Chronic diastolic (congestive) heart failure COPD (chronic obstructive pulmonary disease) Diverticulitis Epistaxis Essential (primary) hypertension Hiatal hernia High cholesterol History of echocardiogram History of edema History of stress test Hyperlipidemia Hypersomnia Hypoxia Insect bite of hand with infection Leg swelling Non-smoker Obstructive sleep apnea Olecranon bursitis, right elbow Persistent atrial fibrillation Rash Renal cyst Shortness of breath on exertion Skin tear Strain of tendon of right rotator cuff Syncope and collapse Wears glasses Wears hearing aid Wears partial dentures Home Medications saw palmetto 450 mg capsule 900 mg PO DAILY 05/18/14 [History Last Taken Unknown] cholecalciferol (vitamin D3) 25 mcg (1,000 unit) capsule 25 mcg PO DAILY 06/27/20 [History Last Taken Unknown] vit C 250 mg-vit E 90 mg-zinc 40 mg-copper 1 [id number] capsule (PreserVision AREDS-2) 1 tab PO DAILY supplement 06/27/20 [History Last Taken Unknown] vitamin B complex 1 tab PO DAILY 10/02/21 [History Last Taken Unknown] finasteride 5 mg tablet 5 mg PO DAILY 06/03/22 [History Last Taken Unknown] tamsulosin 0.4 mg capsule 0.4 mg PO DAILY 06/03/22 [History Last Taken Unknown] aspirin 81 mg tablet,delayed release (Adult Aspirin Regimen) 81 mg PO QDAY #90 tabs 10/31/22 [Rx Last Taken Unknown] furosemide 40 mg tablet 40 mg PO DAILY #90 tabs 10/31/22 [Rx Last Taken Unknown] nitroglycerin 0.4 mg sublingual tablet 0.4 mg sublingual Q5-15M PRN chest pain #25 tabs 10/31/22 [Rx Last Taken Unknown] turmeric 100 mg-nomi 150 mg-olive 50 mg-oreg 150 mg-capryl capsule 1 cap PO DAILY 10/31/22 [History Last Taken Unknown] atorvastatin 20 mg tablet (Lipitor) 20 mg PO DAILY #90 tabs 12/02/22 [Rx Last Taken Unknown] metoprolol succinate 25 mg tablet,extended release 24 hr 25 mg PO DAILY #90 tabs 02/27/23 [Rx Last Taken Unknown] coenzyme Q10 100 mg capsule (CoQ-10) 100 mg PO DAILY 04/29/23 [History Last Taken Unknown] spironolactone 25 mg tablet 25 mg PO DAILY #90 tabs 04/29/23 [Rx Last Taken Unknown] albuterol sulfate 2.5 mg/3 mL (0.083 %) solution for nebulization 2.5 mg (3 mL) inhalation Q4H PRN shortness of breath or wheezing #75 mL 04/30/23 [Rx Last Taken Unknown] apixaban 5 mg tablet (Eliquis) 5 mg PO BID #180 tabs 05/30/23 [Rx Last Taken Unknown] Allergy/AdvReac Type Severity Reaction Status Date / Time peanut Allergy Itching Verified 09/23/23 12:34 levofloxacin [From Levaquin] AdvReac Rash Verified 09/23/23 12:34 Family History Brother Colon cancer Mother Hypertension Father Hypertension Other No pertinent family history Surgical History History of cardiac catheterization History of cataract surgery History of colonoscopy with polypectomy History of coronary artery stent placement (08/17/20) History of orchiectomy History of transurethral resection of prostate Social History Smoking Status: Never smoker alcohol intake: never substance use type: does not use caffeine: Yes Type: coffee Number of servings: 2 ROS ROS ED Constitutional Constitutional ED: Denies chills or fever(s) Eyes Eyes: Denies discharge from eye(s) ENT ENT ED: Denies discharge from eye(s), rhinorrhea or sore throat Cardiovascular Cardiovascular: Reports chest pain; Denies palpitations Respiratory/Chest Respiratory/Chest: Reports cough and dyspnea Gastrointestinal Gastrointestinal: Denies abdominal pain, diarrhea, nausea or vomiting Genitourinary Genitourinary ED: Denies dysuria Musculoskeletal Musculoskeletal: Denies back pain or extremity pain Integumentary Denies Abrasions or rash Neurologic Neurologic: Reports weakness; Denies headache(s) Psychiatric Psychiatric: Denies anxiety or depression Allergic/Immunologic Allergic/Immunologic ED: Denies lip swelling or urticaria EXAM Physical Exam Const Vital Signs: 09/23/23 12:32 09/23/23 12:52 09/23/23 12:52 Temperature 98 F Temperature Source Temporal Pulse Rate 53 L 56 L Respiratory Rate 24 H 26 H Respiratory Effort Short of Breath Labored Accessory Muscle Use Blood Pressure 130/72 H 110/73 Blood Pressure Mean 91 85 Pulse Ox 97 98 Oxygen Delivery Method Room Air Room Air Room Air 09/23/23 12:53 09/23/23 14:57 Temperature Temperature Source Pulse Rate 57 L Respiratory Rate 18 Respiratory Effort Short of Breath Labored Accessory Muscle Use Blood Pressure 132/75 H Blood Pressure Mean 94 Pulse Ox 100 Oxygen Delivery Method Positive well nourished and well developed General Appearance ED: well developed HEENT Reports moist mucous membranes Eyes EOMs intact bilaterally Chest Wall inspection of chest normal and palpation of chest normal Resp Resp Narrative: Diminished breath sounds bilateral bases. Cardio Rate: bradycardia GI non-tender Palpation: soft Extremity Extremity Narrative: 1-2+ bilateral lower extremity edema, symmetric. Neuro oriented x3 Neuro Narrative: No focal neurologic deficit. Skin no rashes or lesions noted MDM MDM MDM Narrative Medical decision making narrative: Patient placed on engine monitor. IV line initiated. EKG obtained to evaluate for cardiac arrhythmia/ischemia. Chest x-ray obtained to evaluate for acute lung pathology, cardiac size, or mediastinal abnormality. Labwork obtained to evaluate for leukocytosis, anemia, and electrolyte derangement. Urinalysis obtained to evaluate for infection/hematuria. Swab for COVID, influenza, and RSV will be obtained. History & Record Review Discussion w/independent historian: Patient and Family Additional record(s) reviewed:: Prior outpatient record and Prior labs Lab Data Attestation: I reviewed the patient's lab results. Labs: Laboratory Results - last 24 hr 09/23/23 09/23/23 14:00 14:49 WBC 5.6 RBC 4.09 L Hgb 12.8 L Hct 36.0 L MCV 88.0 MCH 31.3 MCHC 35.6 RDW Std Deviation 39.5 RDW Coeff of Armani 12.2 Plt Count 201 MPV 9.8 Immature Gran % (Auto) 0.400 Neut % (Auto) 71.0 H Lymph % (Auto) 15.4 L [place] % (Auto) 10.5 H Eos % (Auto) 1.4 Baso % (Auto) 1.3 H Absolute Neuts (auto) 4.0 Absolute Lymphs (auto) 0.86 Nucleated RBC % 0 Sodium 128 L Potassium 4.1 Chloride 94 L Carbon Dioxide 24.0 Anion Gap 10 BUN 16 Creatinine 1.14 Est GFR (MDRD) Af Amer 78 Est GFR (MDRD) Non-Af 65 BUN/Creatinine Ratio 14.0 Glucose 108 H Calcium 9.3 Total Bilirubin 1.20 H Direct Bilirubin 0.41 H AST 24 ALT 21 Alkaline Phosphatase 142 H Troponin I High Sens 46 B-Natriuretic Peptide 162.6 H Total Protein 7.6 Albumin 3.7 Globulin 3.9 Urine Color Straw Urine Clarity Clear Urine pH 6.0 Ur Specific [place] 1.010 Urine Protein Negative Urine Glucose (UA) Normal Urine Ketones Negative Urine Occult Blood Negative Urine Nitrite Negative Urine Bilirubin Negative Urine Urobilinogen Normal Ur Leukocyte Esterase Negative Urine RBC 0 SEEN Urine WBC 0 SEEN Ur Squamous Epith Cells 0 SEEN Urine Bacteria 0 SEEN Urine Mucus 0 SEEN Radiography Chest X-Ray - ED: 1 View, Read by ED Physician, Chronic Changes and Cardiomegaly Diagnostic Testing: Clinical Impression(s) from Imaging Studies Chest X-Ray 09/23/23 14:14 IMPRESSION: Cardiomegaly. Electronically Signed: Nida Paris MD at 14:26 EST , EKG Initial EKG: Attestation: I personally reviewed and interpreted this EKG as follows: Interpretation: Atrial Fibrillation (A-fib at 57 with right bundle branch block. No acute ischemia.) Treatment and Re-Evaluation :: CBC was a white count of 5.6 with a hemoglobin of 12.8. 71% neutrophils are noted. Chemistry studies reveal slightly low sodium at 128. BUN is 16 and creatinine is 1.14. LFTs significant for total bili of 1.2, direct bili 0.41, alk phos of 142. BNP is 162, consistent with his prior values. Troponin is normal at 46. Urinalysis reveals no evidence of acute infection. Chest x-ray per my interpretation was chronic changes with cardiomegaly. No evidence of infiltrate. Radiology interpretation reviewed and agrees. EKG is atrial fibrillation with slow ventricular rate in the 50s. Patient has significant difficulty with getting around his home given his dyspnea. He has not been hypoxic here. Given his functional decline I will speak with hospitalist regarding admission. Discharge Plan Triage Chief Complaint: Shortness of Breath Other Complaint: Weakness ED Provider: Consuelo Mcclain Dx/Rx/DC Orders Clinical Impression: Dyspnea, Declining functional status Prescriptions: No Action PreserVision AREDS-2 [id number] ny-[id number]-zy-mg capsule 1 tab PO DAILY Rx Instructions: administer with meals cholecalciferol (vitamin D3) 25 mcg (1,000 unit) capsule 25 mcg PO DAILY vitamin B complex Tablet 1 tab PO DAILY tamsulosin 0.4 mg capsule 0.4 mg PO DAILY finasteride 5 mg tablet 5 mg PO DAILY [id number]-[id number]-oreg-capry 100 mg-150 mg- 50 mg-150 mg capsule 1 cap PO DAILY furosemide 40 mg tablet 40 mg PO DAILY Qty: 90 3RF nitroglycerin 0.4 mg tablet, sublingual 0.4 mg SUBLINGUAL Q5-15M PRN (Reason: chest pain) Qty: 25 3RF Rx Instructions: do not exceed 3 doses per episode aspirin [Adult Aspirin Regimen] 81 mg tablet,delayed release (DR/EC) 81 mg PO QDAY Qty: 90 3RF coenzyme Q10 [CoQ-10] 100 mg capsule 100 mg PO DAILY spironolactone 25 mg tablet 25 mg PO DAILY Qty: 90 3RF saw palmetto 450 MG capsule 900 mg PO DAILY Patient Comments: health supplement atorvastatin [Lipitor] 20 mg tablet 20 mg PO DAILY Qty: 90 3RF metoprolol succinate 25 mg tablet extended release 24 hr 25 mg PO DAILY Qty: 90 3RF albuterol sulfate 2.5 mg /3 mL (0.083 %) solution for nebulization 2.5 mg inhalation Q4H PRN (Reason: shortness of breath or wheezing) Qty: 75 1RF Eliquis 5 mg tablet 5 mg PO BID Qty: 180 4RF Hold Instructions: epistaxis Primary Care Provider: Daphne Woods Referrals: Daphne Woods MD [Primary Care Provider] - Disposition Disposition: Acute Care Hospital [facility]
--- NOTE | 2023-09-23 18:25 | HP.PCM.HOS_ITS ---
HPI - General General Date of Admission: 09/23/23 Date of Service: 09/23/23 Chief Complaint: Shortness of breath/functional decline HPI Narrative SCARLETT STEVENS, is a 88 M who presented to the emergency department at [facility] on 09/23/2023 with worsening shortness of breath and generalized weakness. It was reported that is been ongoing for several weeks and it seems to be worse over the past week. His reported that he has been taking small shuffling steps and gets very short of breath even with minimal exertion. He reported some intermittent left-sided chest pain but did not have any on presentation. He does have a history of coronary disease with stent placement. He takes Eliquis chronically for history of atrial fibrillation. His reports that they do watch his sodium and he has been taking his Lasix at home. He complains of some sharp chest pain right underneath his left breast intermittently but it is reproducible with even light touch. He was told at 1 point he had sleep apnea and this was back in November at which time he did have a sleep study however he was told by Dr. Berry that if he lost some weight he will should not require CPAP however he is actually gained weight since that point in time. He does have previous stent placed that was in 2020. He denies any significant weight gain recently related to fluid and does not report any swelling in his legs. He has a chronic cough that is productive of some clear sputum. He had no fever or chills. Vital signs show temperature of 98, heart rate 53, blood pressure is 130/72, respiratory was 24, oxygen saturation was 97%. CBC is overall unremarkable with a chronic stable anemia. Chemistry panel shows a sodium of 128 which is slightly off his baseline of about 135, bilirubin is 1.2 and indirect bilirubin 0.4. His initial troponin was 46, his BNP was 162.6 which is elevated and likely falsely lower than what it is running due to his morbid obesity. His UA is unremarkable. EKG shows A-fib with bradycardia at a rate of 55. Chest x-ray shows cardiomegaly without any significant heart failure. [facility] Medical History Anemia Arthritis Atherosclerotic heart disease of [place]wi[place]p coronary artery without angina pectoris BPH with urinary obstruction Cardiology follow-up encounter Chewing tobacco use Chronic diastolic (congestive) heart failure COPD (chronic obstructive pulmonary disease) Diverticulitis Epistaxis Essential (primary) hypertension Hiatal hernia High cholesterol History of echocardiogram History of edema History of stress test Hyperlipidemia Hypersomnia Hypoxia Insect bite of hand with infection Leg swelling Non-smoker Obstructive sleep apnea Olecranon bursitis, right elbow Persistent atrial fibrillation Rash Renal cyst Shortness of breath on exertion Skin tear Strain of tendon of right rotator cuff Syncope and collapse Wears glasses Wears hearing aid Wears partial dentures Home Medications cholecalciferol (vitamin D3) 25 mcg (1,000 unit) capsule 25 mcg PO DAILY SUPPLEMENT 06/27/20 [History Last Taken 09/22/23] vit C 250 mg-vit E 90 mg-zinc 40 mg-copper 1 ti-fjpolw-jydldl capsule (PreserVision AREDS-2) 1 tab PO DAILY supplement 06/27/20 [History Last Taken 09/22/23] finasteride 5 mg tablet 5 mg PO DAILY PROSTATE 06/03/22 [History Last Taken 09/22/23] tamsulosin 0.4 mg capsule 0.4 mg PO DAILY PROSTATE 06/03/22 [History Last Taken 09/22/23] furosemide 40 mg tablet 40 mg PO DAILY EDEMA #90 tabs 10/31/22 [Rx Last Taken 09/22/23] nitroglycerin 0.4 mg sublingual tablet 0.4 mg sublingual Q5-15M PRN CHEST PAIN #25 tabs 10/31/22 [Rx Last Taken Unknown] turmeric 100 mg-nomi 150 mg-olive 50 mg-oreg 150 mg-capryl capsule 1 cap PO DAILY 10/31/22 [History Last Taken 09/22/23] atorvastatin 20 mg tablet (Lipitor) 20 mg PO DAILY CHOLESTEROL #90 tabs 12/02/22 [Rx Last Taken 09/22/23] metoprolol succinate 25 mg tablet,extended release 24 hr 25 mg PO DAILY BLOOD PRESSURE #90 tabs 02/27/23 [Rx Last Taken 09/22/23] coenzyme Q10 100 mg capsule (CoQ-10) 100 mg PO DAILY SUPPLEMENT 04/29/23 [History Last Taken 09/22/23] spironolactone 25 mg tablet 25 mg PO DAILY BLOOD PRESSURE #90 tabs 04/29/23 [Rx Last Taken 09/22/23] albuterol sulfate 2.5 mg/3 mL (0.083 %) solution for nebulization 2.5 mg (3 mL) inhalation Q4H PRN shortness of breath or wheezing #75 mL 04/30/23 [Rx Last Taken Unknown] apixaban 5 mg tablet (Eliquis) 5 mg PO BID BLOOD THINNER #180 tabs 05/30/23 [Rx Last Taken 09/23/23] amoxicillin 500 mg capsule 500 mg PO Q8H ANTIBIOTIC 09/23/23 [History Last Taken 09/23/23] aspirin 81 mg tablet,delayed release (Adult Aspirin Regimen) 81 mg PO DAILY HEART HEALTH 09/23/23 [History Last Taken 09/22/23] Allergy/AdvReac Type Severity Reaction Status Date / Time peanut Allergy Itching Verified 09/23/23 12:34 levofloxacin [From Levaquin] AdvReac Rash Verified 09/23/23 12:34 Family History Brother Colon cancer Mother Hypertension Father Hypertension Other No pertinent family history Surgical History History of cardiac catheterization History of cataract surgery History of colonoscopy with polypectomy History of coronary artery stent placement (08/17/20) History of orchiectomy History of transurethral resection of prostate Social History Smoking Status: Never smoker alcohol intake: never substance use type: does not use caffeine: Yes Type: coffee Number of servings: 2 ROS Constitutional Constitutional: Reports fatigue, malaise and weakness; Denies anorexia, change in weight, chills, fever(s), night sweats or other Eyes Eyes: Denies blurry vision, change in eye color, change in vision, discharge from eye(s), double vision, erythema, eye pain, loss of vision or other ENT HEENT: Denies abnormal hearing, dysphagia, ear pain, epistaxis, headache(s), hearing loss, nasal congestion, nasal discharge, post nasal drip, sinus pressure, sore throat or other Cardiovascular Cardiovascular: Reports chest pain, dyspnea on exertion and orthopnea; Denies claudication, edema, lightheadedness, palpitations, paroxysmal nocturnal dyspnea, rapid heart rate, syncope or other Respiratory/Chest Respiratory/Chest: Reports dyspnea, shortness of breath at rest and shortness of breath with exertion; Denies cough, excessive phlegm production, hemoptysis, productive cough, wheezing or other Gastrointestinal Gastrointestinal: Denies abdominal pain, coffee ground emesis, constipation, diarrhea, dyspepsia, hematemesis, hematochezia, loose stools, melena, nausea, vomiting or other Genitourinary Genitourinary: Denies burning urination, difficulty urinating, dysuria, hematuria, nocturia, urinary frequency, urinary hesitancy, urinary incontinence, urinary urgency or other Musculoskeletal Musculoskeletal: Denies arthralgias, back pain, joint pain, joint stiffness, joint swelling, myalgias, neck pain or other Neurologic Neurologic: Denies abnormal gait, abnormal speech, confusion, disequilibrium, dizziness, focal weakness, headache(s), numbness, paresthesias, seizure-like activity, seizures, syncope, tingling, tremor(s) or other Psychiatric Psychiatric: Denies anxiety, depression, homicidal ideation, suicidal ideation or other Endocrine Endocrinology: Denies change in body appearance, cold intolerance, excessive sweating, heat intolerance, polydipsia, polyuria or other Hematologic/Lymphatic Hematologic/Lymphatic: Denies anemia, easy bleeding, easy bruising, lymphadenopathy or other Allergic/Immunologic Allergic/Immunologic: Denies rhinitis, hives, eczemia, asthma or other Vital Signs Vital Signs Vital Signs: 09/23/23 12:32 09/23/23 12:52 09/23/23 12:52 Temperature 98 F Temperature Source Temporal Pulse Rate 53 L 56 L Respiratory Rate 24 H 26 H Respiratory Effort Short of Breath Labored Accessory Muscle Use Blood Pressure 130/72 H 110/73 Blood Pressure Mean 91 85 Pulse Ox 97 98 Oxygen Delivery Method Room Air Room Air Room Air 09/23/23 12:53 09/23/23 14:57 09/23/23 16:38 Temperature Temperature Source Pulse Rate 57 L 68 Respiratory Rate 18 19 H Respiratory Effort Short of Breath Labored Accessory Muscle Use Blood Pressure 132/75 H 113/90 H Blood Pressure Mean 94 97 Pulse Ox 100 98 Oxygen Delivery Method Room Air 09/23/23 17:28 Temperature 97.5 F L Temperature Source Pulse Rate 66 Respiratory Rate 18 Respiratory Effort Blood Pressure 140/63 H Blood Pressure Mean 88 Pulse Ox 97 Oxygen Delivery Method Physical Exam Const alert, oriented x3, no apparent distress and well nourished; Negative for avera ge body habitus or healthy appearing Constitutional Narrative: Obese, older, white male, sitting up in bed, at bedside, somewhat labored breathing but not an extremis, appears chronically ill General Appearance: cooperative HEENT normocephalic and head/scalp atraumatic HEENT Narrative: Moderate hearing loss even with hearing aids in place, dentition is poor Eyes PERRL, EOMs intact bilaterally and conjunctivae normal Eyes Narrative: No scleral icterus Neck no lymphadenopathy and supple Neck Narrative: Positive JVD, trachea midline, no thyroid enlargement, neck is short and thick Resp No normal respiratory effort, no retractions, no use of accessory muscles and clear to auscultation bilaterally Resp Narrative: Breathing appears effortful however lung sounds are clear, no signs of extremis Auscultation: Negative for rales, rhonchi or wheezes Cardio regular rhythm, S1 normal heart sound, S2 normal heart sound, no murmurs, no rub, no gallops and no clicks Cardio Narrative: Irregular irregular rhythm GI normal to inspection, nondistended, normoactive bowel sounds, soft to palpation and non-tender Extremity no clubbing, cyanosis or edema Extremity Narrative: Pedal pulses are 2+ chronic lower extremity edema noted Skin Skin Narrative: Erythema under bilateral breasts Neuro oriented x3, CN's II-XII intact bilaterally and moves all extremities Speech: speech normal Psych affect normal Psych Narrative: Appears comfortable, nontoxic Results Lab / Micro Data 09/23/23 14:00 09/23/23 14:00 Labs: Laboratory Results - last 24 hr 09/23/23 14:00: WBC 5.6, RBC 4.09 L, Hgb 12.8 L, Hct 36.0 L, MCV 88.0, MCH 31.3, MCHC 35.6, RDW Std Deviation 39.5, RDW Coeff of Armani 12.2, Plt Count 201, MPV 9.8, Immature Gran % (Auto) 0.400, Neut % (Auto) 71.0 H, Lymph % (Auto) 15.4 L, [place] % (Auto) 10.5 H, Eos % (Auto) 1.4, Baso % (Auto) 1.3 H, Absolute Neuts (auto) 4.0, Absolute Lymphs (auto) 0.86, Nucleated RBC % 0, Sodium 128 L, Potassium 4.1, Chloride 94 L, Carbon Dioxide 24.0, Anion Gap 10, BUN 16, Creatinine 1.14, Est GFR (MDRD) Af Amer 78, Est GFR (MDRD) Non-Af 65, BUN/Creatinine Ratio 14.0, Glucose 108 H, Calcium 9.3, Total Bilirubin 1.20 H, Direct Bilirubin 0.41 H, AST 24, ALT 21, Alkaline Phosphatase 142 H, Troponin I High Sens 46, B-Natriuretic Peptide 162.6 H, Total Protein 7.6, Albumin 3.7, Globulin 3.9 09/23/23 14:49: Urine Color Straw, Urine Clarity Clear, Urine pH 6.0, Ur Specific [place] 1.010, Urine Protein Negative, Urine Glucose (UA) Normal, Urine Ketones Negative, Urine Occult Blood Negative, Urine Nitrite Negative, Urine Bilirubin Negative, Urine Urobilinogen Normal, Ur Leukocyte Esterase Negative, Urine RBC 0 SEEN, Urine WBC 0 SEEN, Ur Squamous Epith Cells 0 SEEN, Urine Bacteria 0 SEEN, Urine Mucus 0 SEEN Micro: Microbiology 09/23/23 14:30 Mucosa - Nasopharyngeal SARS-CoV-2, Influenza & RSV (PCR) - Final Imaging Radiology Impression Chest X-Ray 09/23/23 14:14 IMPRESSION: Cardiomegaly. Electronically Signed: Nida Paris MD at 14:26 EST , Assessment & Plan Assessment/Plan (1) Dyspnea: (2) Declining functional status: (3) Hyperbilirubinemia: (4) Hyponatremia: PLAN: Plan Shortness of breath/exertional dyspnea -Suspect related to heart failure with preserved ejection fraction -Lasix 40 mg IV twice daily -Daily weights -Check echocardiogram -Will check stress test -Cycle cardiac enzymes -Not currently requiring any supplemental oxygen but would continue to monitor -Last echocardiogram was done on 05/20/2023 which showed an EF of 55%, severe concentric LVH with diastolic dysfunction and a right ventricular systolic pressure of 30 mmHg Hyponatremia -Suspect it is related to the above -Will monitor -Baseline sodium seems to run between 133 and 138 -Will monitor with ongoing diuresis Hyperbilirubinemia -Again suspect related to acute heart failure -Continue to monitor Functional decline/debility -PT/OT consultation -Case management/social work consultation Infected tooth -Continue home amoxicillin CAD/HTN/HPL/AF -Continue home apixaban -Continue home aspirin -Continue home atorvastatin -Hold home Lasix -Continue home metoprolol -Continue home Aldactone COPD -Continue as needed nebulizers -No wheezing on exam BPH with obstruction -Continue Flomax -Continue finasteride CHUCHO -Patient was told he does not have to wear CPAP but that was several years ago -Highly suspect he has obstructive sleep apnea that may benefit from treatment -Will assess overnight pulse oximetry And recommend outpatient follow-up with Dr. Berry Obesity -Recommend weight loss -Complicates treatment, prognosis, outcomes DVT prophylaxis -Continue home apixaban CODE STATUS -DNR CCA as discussed the emergency department Charges/Coding Visit Charges Inpatient E&M: 47613 Init Hosp L2
--- NOTE | 2023-09-23 19:39 | ECHOCS_ITS ---
Reason For Study: CHF Procedure This was a 2D Doppler, Color Flow transthoracic echocardiogram. The study was technically difficult. Exam performed portable in patient room. Left Ventricle Normal LV size. Severe concentric left ventricular hypertrophy. The left ventricular ejection fraction is 70 %. Diastolic function is indeterminate. Right Ventricle Normal right ventricle. Atria There is mild biatrial dilatation. Mitral Valve The mitral valve is structurally normal. No prolapse or stenosis seen. Tricuspid Valve Trivial tricuspid valve insufficiency. Right ventricular systolic pressure estimated to be 46 mmHg. Aortic Valve Aortic sclerosis, no stenosis. Pulmonic Valve The pulmonic valve is not well visualized. Trivial pulmonic valve insufficiency. Great Vessels Mildly dilated aortic root. Pericardium/Pleural No pericardial effusion. Medication Diluted definity 2.5ml given slow IV push to enhance endocardial definition. MMode/2D Measurements & Calculations LVIDd: 4.2 cm IVSd: 1.7 cm LVOT diam: 1.9 cm LVIDs: 2.9 cm LVPWd: 1.8 cm RVDd: 3.9 cm FS: 30.3 % LVOT area: 2.9 cm2 Ao root diam: 3.8 cm LAV(MOD-bp): 107.3 ml LVAd ap4: 23.7 cm2 LAV(MOD-bp) Indexed: 44.9 ml/m2 LVLd ap4: 7.4 cm LAV(MOD-sp2): 112.9 ml EDV(MOD-sp4): 62.3 ml LAV(MOD-sp4): 94.3 ml EDV(sp4-el): 63.9 ml LVAs ap4: 12.7 cm2 LVLs ap4: 5.7 cm ESV(MOD-sp4): 23.3 ml ESV(sp4-el): 23.7 ml EF(MOD-sp4): 62.7 % EF(sp4-el): 63.0 % SV(MOD-sp4): 39.0 ml SV(sp4-el): 40.3 ml LA A4 area: 27.8 cm2 LA dimension(2D): 4.4 cm Time Measurements MV dec time: 0.20 sec Doppler Measurements & Calculations MV E max [place]go: 75.2 cm/sec Lat Peak E' Diego: 6.2 cm/sec Med Peak E' [place]: 6.1 cm/sec E/E' lat: 12.0 E/E' med: 12.2 Ao V2 max: 147.5 cm/sec LV V1 max: 79.6 cm/sec SV(LVOT): 42.0 ml Ao max P.7 mmHg LV V1 max P.5 mmHg Ao V2 mean: 103.3 cm/sec LV V1 mean P.4 mmHg Ao mean P.8 mmHg LV V1 mean: 55.6 cm/sec Ao V2 VTI: 26.3 cm LV V1 VTI: 14.4 cm AV (velocity ratio): 0.55 CHRISTAL(I,D): 1.6 cm2 CHRISTAL(V,D): 1.6 cm2 PA V2 max: 74.3 cm/sec TR max diego: 279.1 cm/sec PA max PG (full): 0.60 mmHg TR max P.2 mmHg ECHO/Echo Complete W/ Contrast Interpretation Summary Severe concentric left ventricular hypertrophy. The left ventricular ejection fraction is 70 %. Diastolic function is indeterminate. There is mild biatrial dilatation. Right ventricular systolic pressure estimated to be 46 mmHg. Mildly dilated aortic root. The study was technically difficult. Ordering Physician: Lucero Acevedo Referring Physician: Daphne Woods Performed By: Lisa Spears RDCS
[2023-09-23] MEDS: APIXABAN 5 MG TABLET PO (21:39)
[2023-09-23] MEDS: AMOXICILLIN 500 MG CAPSULE PO (21:39)
[2023-09-23] MEDS: Nystatin Powder 15gm Bottle 1 APPLIC TOPICAL (21:40)
[2023-09-23 22:54] LABS: Troponin-I HS 45 pg/mL (3.0-78.0)
[2023-09-24 00:26] LABS: Troponin-I HS 46 pg/mL (3.0-78.0)
[2023-09-24 03:19] VITALS: BMI 39.5
[2023-09-24 03:55] LABS: Absolute Lymphocyte Count 1.01 X10^3/uL (0.83-4.51); Basophil# 0.11 X10^3/uL; Basophil% 1.6 % (0-1); Eosinophil# 0.13 X10^3/uL; Eosinophils% 1.9 % (0-5); Hematocrit 35.3 % (40-54); Hemoglobin 12.5 g/dL (13.0-16.5); Lymphocyte # 1.01 X10^3/ul (0.83-4.51); Lymphocyte % 14.4 % (19-41); Mean Corp Hgb Conc 35.4 g/dL (32-36); Mean Corpuscular Hgb 30.5 pg (27.0-32.0); Mean Corpuscular Volume 86.1 fL (80-94); Mean Platelet Vol. 9.8 fl (6.2-12.0); NRBC Flagged by Analyzer 0 % (0-5); Neutrophil # 5.03 X10^3/uL (2.7-7.7); Neutrophil % 71.7 % (47-70); Platelet Count 203 K/mm3 (150-450); RBC Distribution Width CV 12.1 % (11.6-14.6); RBC Distribution Width SD 38.5 fl (35.1-43.9)
[2023-09-24 04:00] VITALS: BP 127/74; PULSE 62; RESP 18; TEMP 36.1; O2SAT 97
[2023-09-24 04:15] LABS: Troponin-I HS 53 pg/mL (3.0-78.0)
[2023-09-24 04:45] LABS: ALB/GLOB Ratio 0.9 RATIO (0.9-2.4); AST(SGOT) 23 U/L (15-37); Alanine Aminotransfer ALT/SGPT 20 U/L (16-61); Albumin, Serum 3.4 g/dL (3.2-5.0); Alkaline Phosphatase 131 U/L (45-117); Anion Gap 11 (5-15); BUN 13 mg/dL (7-18); BUN/Creat Ratio 13.3 RATIO (10-20); Calcium,Total 8.8 mg/dL (8.5-10.1); Chloride 97 mmol/L (98-107); Creatinine, Serum 0.98 mg/dL (0.70-1.30); EST Glomerular Filtration Rate 77 mL/min (>60); Est Glom Filt Rate - Afr Amer 93 mL/min (>60); Estimated Creatinine Clearance 71.82 ml/min; Globulin 3.6 g/dL (2.2-4.2); Glucose 113 mg/dL (74-106); Magnesium 1.9 mg/dL (1.6-2.6); Phosphorus 2.7 mg/dL (2.5-4.9); Sodium Level 129 mmol/L (136-145); Thyroid Stim Hormone (TSH) 1.77 uIU/mL (0.358-3.74)
[2023-09-24] MEDS: AMOXICILLIN 500 MG CAPSULE PO ×3 (05:18→22:30)
[2023-09-24 07:02] VITALS: O2SAT 99
--- NOTE | 2023-09-24 08:51 | PN.HOSP_ITS ---
Reason for Visit Reason for Visit: Diagnoses Other disorders of bilirubin metabolism (09/23/23) Hypo-osmolality and hyponatremia (09/23/23) Dyspnea, unspecified (09/23/23) Other malaise (09/23/23) Subjective Subjective Patient is an 88-year-old gentleman admitted with progressive shortness of breath. Admitted to monitored bed for further management Objective Data Objective Data Vital Signs: Vital Signs Temp Pulse Resp BP Pulse Ox O2 Del Method 97 F L 62 18 127/74 H 97 Room Air 09/24/23 04:00 09/24/23 04:00 09/24/23 04:00 09/24/23 04:00 09/24/23 04:00 09/24/23 08:10 Oxygen Delivery Method Room Air Weight: 125.1 kg Body Mass Index (BMI) 39.5 Intake & Output: Intake and Output for Last 24 Hours 09/22/23 09/23/23 09/24/23 23:59 23:59 23:59 Intake Total 240 / 240 Output Total 700 / 700 Balance -460 / -460 Lab / Micro Data 09/24/23 03:40 09/24/23 03:40 Labs: Laboratory Results - last 24 hr 09/23/23 14:00: WBC 5.6, RBC 4.09 L, Hgb 12.8 L, Hct 36.0 L, MCV 88.0, MCH 31.3, MCHC 35.6, RDW Std Deviation 39.5, RDW Coeff of Armani 12.2, Plt Count 201, MPV 9.8, Immature Gran % (Auto) 0.400, Neut % (Auto) 71.0 H, Lymph % (Auto) 15.4 L, [place] % (Auto) 10.5 H, Eos % (Auto) 1.4, Baso % (Auto) 1.3 H, Absolute Neuts (auto) 4.0, Absolute Lymphs (auto) 0.86, Nucleated RBC % 0, Sodium 128 L, Potassium 4.1, Chloride 94 L, Carbon Dioxide 24.0, Anion Gap 10, BUN 16, Creatinine 1.14, Est GFR (MDRD) Af Amer 78, Est GFR (MDRD) Non-Af 65, BUN/Creatinine Ratio 14.0, Glucose 108 H, Calcium 9.3, Total Bilirubin 1.20 H, Direct Bilirubin 0.41 H, AST 24, ALT 21, Alkaline Phosphatase 142 H, Troponin I High Sens 46, B-Natriuretic Peptide 162.6 H, Total Protein 7.6, Albumin 3.7, Globulin 3.9 09/23/23 14:49: Urine Color Straw, Urine Clarity Clear, Urine pH 6.0, Ur Specific [place] 1.010, Urine Protein Negative, Urine Glucose (UA) Normal, Urine Ketones Negative, Urine Occult Blood Negative, Urine Nitrite Negative, Urine Bilirubin Negative, Urine Urobilinogen Normal, Ur Leukocyte Esterase Negative, Urine RBC 0 SEEN, Urine WBC 0 SEEN, Ur Squamous Epith Cells 0 SEEN, Urine Bacteria 0 SEEN, Urine Mucus 0 SEEN 09/23/23 22:12: Troponin I High Sens 45 09/23/23 23:45: Troponin I High Sens 46 09/24/23 03:40: WBC 7.0, RBC 4.10 L, Hgb 12.5 L, Hct 35.3 L, MCV 86.1, MCH 30.5, MCHC 35.4, RDW Std Deviation 38.5, RDW Coeff of Armani 12.1, Plt Count 203, MPV 9.8, Immature Gran % (Auto) 0.400, Neut % (Auto) 71.7 H, Lymph % (Auto) 14.4 L, [place] % (Auto) 10.0, Eos % (Auto) 1.9, Baso % (Auto) 1.6 H, Absolute Neuts (auto) 5.0, Absolute Lymphs (auto) 1.01, Nucleated RBC % 0, Sodium 129 L, Potassium 4.0, Chloride 97 L, Carbon Dioxide 21.0, Anion Gap 11, BUN 13, Creatinine 0.98, Estim Creat Clear Calc 71.82, Est GFR (MDRD) Af Amer 93, Est GFR (MDRD) Non-Af 77, BUN/Creatinine Ratio 13.3, Glucose 113 H, Calcium 8.8, Phosphorus 2.7, Magnesium 1.9, Total Bilirubin 1.20 H, AST 23, ALT 20, Alkaline Phosphatase 131 H, Troponin I High Sens 53, Total Protein 7.0, Albumin 3.4, Globulin 3.6, Albumin/Globulin Ratio 0.9, TSH 1.77 Micro: Microbiology 09/23/23 14:30 Mucosa - Nasopharyngeal SARS-CoV-2, Influenza & RSV (PCR) - Final Radiography Diagnostic Testing: Radiology Impression Chest X-Ray 09/23/23 14:14 IMPRESSION: Cardiomegaly. Electronically Signed: Nida Paris MD at 14:26 EST , Physical Exam Narrative GENERAL: cooperative HEENT: Atraumatic; normocephalic EYES; Anicteric, Normal Conjunctiva NECK; supple, normal thyroid, RESPIRATORY: Diminished to auscultation CARDIOVASCULAR: Regular S1 S2, GI: soft, normoactive bowel sounds, : No Renal angle tenderness; EXTREMITIES: No edema, no clubbing, MUSCULOSKELETAL: no muscle wasting NEURO: Awake; no lateralizing signs. SKIN: No Rash PSYCH; Flat affect Assessment & Plan Assessment/Plan (1) Dyspnea: (2) Hyponatremia: PLAN: Plan Patient is an 88-year-old gentleman admitted with progressive shortness of breath. Admitted to monitored bed for further management 1. Acute dyspnea ?? Anginal equivalent. Placed on a monitored bed serial cardiac enzymes ordered. As part of patient's management nuclear stress test ordered 2. 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 Echo from05/20/2023 which showed an EF of 55%, severe concentric LVH with diastolic dysfunction and a right ventricular systolic pressure of 30 mmHg. Patient is on diuretic therapy with Aldactone as well as furosemide continued 3. Hyponatremia ? Secondary to fluid overload status do expect improvement with diuresis 4. Paroxysmal A-fib ? Rate controlled with beta-blockers on systemic anticoagulation with apixaban 5. Dyslipidemia -Patient is on statin therapy, continued at home dose 6. Hypertension - Blood pressure controlled, home medications continued with dose adjustment as needed 7.Obstructive sleep apnea ? Patient is on BiPAP at night 8. Coronary artery disease ? With previous KARIS to mid RCA lesion patient remains on guideline directed medical therapy 9. COPD ? Currently not in exacerbation aerosol treatment as needed 10. Infected tooth ? Patient is on amoxicillin continue 11. Physical deconditioning - Requested for PT OT eval and social work professor to assist with discharge planning 12. Hyperbilirubinemia -suspected to be secondary to CHF monitoring 13. Class II obesity with BMI of 39.6 ? Complicating care weight loss advised 14. DVT prophylaxis ? On apixaban Time spent in the patient's overall evaluation,decision-making process, review of diagnostic data, adjustment of management, discussion with other providers, nursing nursing and ancillary staff involved in patient's care documentation, 50 Minutes Charges/Coding Visit Charges Inpatient E&M: 79207 Subs Hosp L3
--- NOTE | 2023-09-24 10:15 | CASEMGMT ---
Addendum entered by Alan Gonzales 09/24/23 15:52: did request information on medical alert system. This was provided to her this AM. Original Note: RN?CM?PRACTICAL NURSING FACULTY?CM?to room for initial transition planning/care coordination?assessment.? Pt is out of room for stress test at this time. in room. RN?CM?introduced self and role at [facility].? voices understanding and consents to?assessment?at this time.? Care providers, pharmacy, and demographics verified/updated at this time. PCP: Dr Woods Specialists:Dr Garcia-cardiology, Dr Whitney-ortho, Dr Madai Duran-GI, Dr Murrieta-urology Preferred Pharmacy:[facility] Retail Insurance: [facility], AARDmitry Prescription Benefit:?Yes Living Will/HPOA:? states pt has both LW and HCPOA, who is herself (). She made aware to bring copies to [facility] to be placed on pt's chart, if able to. LNOK: , Caitie. Daughter, Laura Flores. Son, Yayo Rhodes. Living Arrangements: Lives w/his in one-story home w/basement (pt does not have to go to basement). 2-3 steps to enter home either thru garage or other entrance. Pt is independent w/bathing. assists w/dressing d/t bad shoulder . manages pt's medications and does most home mgnt tasks. Pt does go to the grocery store w/ at times. Pt has been SOB recently, so has been assisting pt more. Transportation:?Pt and both drive. has been doing more of the driving lately d/t pt SOB DME: Has the following DME:? Pt has a quad cane, lift chair, nebulizer, and pulse ox. Pt does not have home O2. states if home O2 needed @ d/c, [facility] in [place] is preferred DME co. HHC/SNF: No hx of either. PT/OT evals pending. made aware CM will f/u with pt/ if any recommendations are made. wishes for pt to return home and states has no concerns with going home at time of discharge.? CM?to follow for home oxygen needs and any further discharge planning/needs.? voices no further concerns/needs at this time.? PLAN:??Home. PT/OT evals pending. Follow for possible HHC or OP therapy. Follow for possible home O2. Jesus BSN?RN?CM
[2023-09-24 11:30] VITALS: BP 117/74; PULSE 68; RESP 20; TEMP 36.7; O2SAT 98
[2023-09-24] MEDS: Spironolactone 25 MG Tablet PO (11:30)
[2023-09-24] MEDS: APIXABAN 5 MG TABLET PO ×2 (11:30→22:30)
[2023-09-24] MEDS: Tamsulosin HCl 0.4 MG Capsule 0.400000000000000022 MG PO (11:31)
[2023-09-24] MEDS: Finasteride 5 MG Tablet PO (11:31)
[2023-09-24] MEDS: Nystatin Powder 15gm Bottle 1 APPLIC TOPICAL ×2 (11:31→22:30)
[2023-09-24 11:32] VITALS: BP 117/74; PULSE 68
[2023-09-24] MEDS: Atorvastatin Calcium 20 MG Tablet PO (11:32)
[2023-09-24] MEDS: Aspirin E.C. 81 MG Tablet PO (11:32)
[2023-09-24] MEDS: Metoprolol(XL)Succ 25 MG Tablet PO (11:32)
[2023-09-24] MEDS: Cholecalciferol (VIT D3) 25 MCG TABLET (1,000 UNITS) PO (11:32)
--- NOTE | 2023-09-24 11:36 | STRESSREP_ITS ---
Stress Test Report Date: 09/24/2023 Procedure: Pharmacologic stress nuclear imaging study Indications: Chest pain Consent: Per the patient Procedure: The patient underwent pharmacologic (Regadenoson 0.4mg ) evaluation with a peak heart rate of 78 beats per minute (58%predicted maximal heart rate) and a peak blood pressure of 118/64 mmHg. The baseline ECG demonstrated atrial fibrillation and right bundle branch block. The peak pharmacologic ECG demonstrated no diagnostic changes. There were no cardiac dysrhythmias pretest, during pharmacologic infusion, or recovery. There was no complaint of chest discomfort during pharmacologic infusion or recovery. The patient was injected with 15.0 millicuries of technetium 99m Cardiolite and subsequently rest SPECT Cardiolite nuclear imaging was obtained in the horizontal long, vertical long, and short axis views. The patient underwent pharmacologic (Regadenoson) evaluation. The patient was injected with 44.5 millicuries of technetium 99m Cardiolite and subsequently stress SPECT Cardiolite nuclear imaging was obtained in the horizontal long, vertical long, and short axis views. A gated Cardiolite study at peak stress was obtained. The examination was stopped secondary to completion of protocol. Rest and stress SPECT Cardiolite nuclear imaging status post realignment, normalization, and attenuation correction demonstrate no fixed or reversible perfusion defects. There is end systolic thickening and brightening. The gated Cardiolite study demonstrates myocardial thickening and inward wall motion. The reported LVEF is 53%. Impression: 1. Pharmacologic (Regadenoson) evaluation 2. Peak pharmacologic ECG with no diagnostic changes. 3. Baseline atrial fibrillation and right bundle branch block. 5. Rest and stress SPECT Cardiolite nuclear imaging demonstrate relative uniform tracer uptake and myocardial perfusion appearing within normal limits. 6. The gated Cardiolite study reports an LVEF of 53%. This note was generated with [employer] software. It may contain incorrect words, spelling, and punctuation that were not noted in checking the note before signing.
[2023-09-24] MEDS: 0.9% Saline Lock 10 ML Syringe IV (17:20)
[2023-09-24] MEDS: Furosemide 40 MG/4 ML Vial IV (17:20)
[2023-09-24 17:30] VITALS: BP 115/101; PULSE 70; RESP 20; TEMP 36.6; O2SAT 99
[2023-09-24 22:00] VITALS: BP 127/48; PULSE 66; RESP 20; TEMP 36.7; O2SAT 98
[2023-09-25 04:00] VITALS: BP 111/62; PULSE 65; RESP 20; TEMP 36.6; O2SAT 97
[2023-09-25 05:02] VITALS: BMI 39.3
[2023-09-25] MEDS: AMOXICILLIN 500 MG CAPSULE PO (05:21)
[2023-09-25 09:35] VITALS: O2SAT 98
[2023-09-25 10:05] VITALS: BP 121/64; PULSE 81; RESP 20; TEMP 36.6; O2SAT 99
--- NOTE | 2023-09-25 10:05 | PCM.DC.SUM ---
Providers Date of Admission: 09/23/23 Date of Discharge: 09/25/23 Primary Care Physician: Dr. Daphne Woods MD Reason For Visit: SHORTNESS OF BREATH 2/2 ACUTE HRPEF Diagnosis Discharge Diagnosis (1) Dyspnea: Status: Acute Code(s): R06.00 - Dyspnea, unspecified (2) Hyponatremia: Status: Acute Code(s): E87.1 - Hypo-osmolality and hyponatremia Plan Patient is an 88-year-old gentleman admitted with progressive shortness of breath. Admitted to monitored bed for further management 1. Acute dyspnea ?? Anginal equivalent. Placed on a monitored bed serial cardiac enzymes ordered. As part of patient's management nuclear stress test ordered 2. 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 Echo from05/20/2023 which showed an EF of 55%, severe concentric LVH with diastolic dysfunction and a right ventricular systolic pressure of 30 mmHg. Patient is on diuretic therapy with Aldactone as well as furosemide continued -09/25/2019 4 repeat echo demonstrated -Severe concentric left ventricular hypertrophy. The left ventricular ejection fraction is 70 %. Diastolic function is indeterminate. There is mild biatrial dilatation. Right ventricular systolic pressure estimated to be 46 mmHg. Mildly dilated aortic root. The study was technically difficult 3. Hyponatremia ? Secondary to fluid overload status do expect improvement with diuresis 4. Paroxysmal A-fib ? Rate controlled with beta-blockers on systemic anticoagulation with apixaban 5. Dyslipidemia -Patient is on statin therapy, continued at home dose 6. Hypertension - Blood pressure controlled, home medications continued with dose adjustment as needed 7.Obstructive sleep apnea ? Patient is on BiPAP at night 8. Coronary artery disease ? With previous KARIS to mid RCA lesion patient remains on guideline directed medical therapy 9. COPD ? Currently not in exacerbation aerosol treatment as needed 10. Infected tooth ? Patient is on amoxicillin continue 11. Physical deconditioning - Requested for PT OT eval and health and social care teacher to assist with discharge planning 12. Hyperbilirubinemia -suspected to be secondary to CHF monitoring 13. Class II obesity with BMI of 39.6 ? Complicating care weight loss advised 14. DVT prophylaxis ? On apixaban Time spent in the patient's overall evaluation,decision-making process, review of diagnostic data, adjustment of management, discussion with other providers, nursing nursing and ancillary staff involved in patient's care documentation, 35 Minutes Medications at Discharge Home Medications cholecalciferol (vitamin D3) 25 mcg (1,000 unit) capsule 25 mcg PO DAILY SUPPLEMENT 06/27/20 vit C 250 mg-vit E 90 mg-zinc 40 mg-copper 1 kz-janqoq-lmesuy capsule (PreserVision AREDS-2) 1 tab PO DAILY supplement 06/27/20 finasteride 5 mg tablet 5 mg PO DAILY PROSTATE 06/03/22 tamsulosin 0.4 mg capsule 0.4 mg PO DAILY PROSTATE 06/03/22 nitroglycerin 0.4 mg sublingual tablet 0.4 mg sublingual Q5-15M PRN CHEST PAIN #25 tabs 10/31/22 turmeric 100 mg-nomi 150 mg-olive 50 mg-oreg 150 mg-capryl capsule 1 cap PO DAILY 10/31/22 atorvastatin 20 mg tablet (Lipitor) 20 mg PO DAILY CHOLESTEROL #90 tabs 12/02/22 metoprolol succinate 25 mg tablet,extended release 24 hr 25 mg PO DAILY BLOOD PRESSURE #90 tabs 02/27/23 coenzyme Q10 100 mg capsule (CoQ-10) 100 mg PO DAILY SUPPLEMENT 04/29/23 spironolactone 25 mg tablet 25 mg PO DAILY BLOOD PRESSURE #90 tabs 04/29/23 albuterol sulfate 2.5 mg/3 mL (0.083 %) solution for nebulization 2.5 mg (3 mL) inhalation Q4H PRN shortness of breath or wheezing #75 mL 04/30/23 apixaban 5 mg tablet (Eliquis) 5 mg PO BID BLOOD THINNER #180 tabs 05/30/23 amoxicillin 500 mg capsule 500 mg PO Q8H ANTIBIOTIC 09/23/23 aspirin 81 mg tablet,delayed release (Adult Aspirin Regimen) 81 mg PO DAILY HEART HEALTH 09/23/23 furosemide 40 mg tablet 40 mg PO BID EDEMA #120 tabs 09/25/23 Physical Exam Narrative GENERAL: cooperative HEENT: Atraumatic; normocephalic EYES; Anicteric, Normal Conjunctiva NECK; supple, normal thyroid, RESPIRATORY: Diminished to auscultation CARDIOVASCULAR: Regular S1 S2, GI: soft, normoactive bowel sounds, : No Renal angle tenderness; EXTREMITIES: No edema, no clubbing, MUSCULOSKELETAL: no muscle wasting NEURO: Awake; no lateralizing signs. SKIN: No Rash PSYCH; Flat affect Weight / BMI Weight Weight: 124.4 kg Body Mass Index (BMI) 39.3 ABG / Lab / Microbiology Data 09/24/23 03:40 09/24/23 03:40 Microbiology: Microbiology 09/23/23 14:30 Mucosa - Nasopharyngeal SARS-CoV-2, Influenza & RSV (PCR) - Final Radiography Diagnostic Testing: Radiology Impression Echocardiogram 09/23/23 19:39 Interpretation Summary Severe concentric left ventricular hypertrophy. The left ventricular ejection fraction is 70 %. Diastolic function is indeterminate. There is mild biatrial dilatation. Right ventricular systolic pressure estimated to be 46 mmHg. Mildly dilated aortic root. The study was technically difficult. Ordering Physician: Lucero Acevedo Referring Physician: Daphne Woods Performed By: Lisa Spears RDCS D/C Instructions Discharge Diet: 8 Cup Fluid Restriction and 2000 mg Sodium Diet Discharge Activity: Return to Normal Activity Call your doctor if you observe: Fever of 101 or Higher, Shortness of breath, Fainting spells and Chest pain Meaningful Use Info Meaningful Use Diagnoses (Choose all that apply): CHF CHF NAHOMI/ARB ordered at discharge?: No Reason NAHOMI/ARB not ordered?: Normal EF Documented LVEF (%): 70 Discharge Plan Admission Admit Date/Time: 09/23/23 18:19 Attending Provider: Yayo Esquivel Primary Care Provider: Daphne Woods Consulting Providers: Lucero Acevedo Discharge Orders/Prescriptions Prescriptions: Continued PreserVision AREDS-2 [id number] sv-ziyy-hu-mg capsule 1 tab PO DAILY Rx Instructions: administer with meals cholecalciferol (vitamin D3) 25 mcg (1,000 unit) capsule 25 mcg PO DAILY tamsulosin 0.4 mg capsule 0.4 mg PO DAILY finasteride 5 mg tablet 5 mg PO DAILY ouawolnk-cwfn-zcosg-oreg-capry 100 mg-150 mg- 50 mg-150 mg capsule 1 cap PO DAILY nitroglycerin 0.4 mg tablet, sublingual 0.4 mg SUBLINGUAL Q5-15M PRN (Reason: CHEST PAIN ) Qty: 25 3RF Rx Instructions: do not exceed 3 doses per episode coenzyme Q10 [CoQ-10] 100 mg capsule 100 mg PO DAILY spironolactone 25 mg tablet 25 mg PO DAILY Qty: 90 3RF amoxicillin 500 mg capsule 500 mg PO Q8H Rx Instructions: TAKE 1 CAPSULE BY MOUTH EVERY 8 HOURS UNTIL GONE. START DATE: 09/15/2023 END DATE: 09/25/2023 aspirin [Adult Aspirin Regimen] 81 mg tablet,delayed release (DR/EC) 81 mg PO DAILY atorvastatin [Lipitor] 20 mg tablet 20 mg PO DAILY Qty: 90 3RF metoprolol succinate 25 mg tablet extended release 24 hr 25 mg PO DAILY Qty: 90 3RF albuterol sulfate 2.5 mg /3 mL (0.083 %) solution for nebulization 2.5 mg inhalation Q4H PRN (Reason: shortness of breath or wheezing) Qty: 75 1RF Eliquis 5 mg tablet 5 mg PO BID Qty: 180 4RF Hold Instructions: epistaxis Changed furosemide 40 mg tablet 40 mg PO BID Qty: 120 3RF Referrals / Follow Up: Daphne Woods MD [Primary Care Provider] - Within 2 Weeks Disposition Disposition (needs filled in before D/C Order can be placed): Home, Self Care Charges/Coding Visit Charges Inpatient E&M: 68800 Disch Hosp >30min
[2023-09-25] MEDS: Spironolactone 25 MG Tablet PO (10:06)
[2023-09-25] MEDS: Furosemide 40 MG/4 ML Vial IV (10:07)
[2023-09-25] MEDS: Atorvastatin Calcium 20 MG Tablet PO (10:07)
[2023-09-25] MEDS: Finasteride 5 MG Tablet PO (10:07)
[2023-09-25] MEDS: APIXABAN 5 MG TABLET PO (10:07)
[2023-09-25] MEDS: Tamsulosin HCl 0.4 MG Capsule 0.400000000000000022 MG PO (10:07)
[2023-09-25] MEDS: Aspirin E.C. 81 MG Tablet PO (10:07)
[2023-09-25 10:08] VITALS: PULSE 81
[2023-09-25] MEDS: Metoprolol(XL)Succ 25 MG Tablet PO (10:08)
[2023-09-25] MEDS: 0.9% Saline Lock 10 ML Syringe IV (10:08)
[2023-09-25] MEDS: Cholecalciferol (VIT D3) 25 MCG TABLET (1,000 UNITS) PO (10:08)
--- NOTE | 2023-09-25 10:48 | CASEMGMT ---
Addendum entered by Keisha Escoto 09/25/23 13:12: Patient was accepted by [facility]. TANMAY OROZCO in to updated patient and . Patient and deny further needs. Patient and had no further questions or concerns. Original Note: Patient has order for discharge. TANMAY OROZCO reviewed progress with therapy, recommending HHC. TANMAY OROZCO in to discuss HHC with patient and . A list of HHC providers including quality and resource use data and consistent with the patient?s preferred geographical region, medical needs, and insurance network were provided from the [facility] [facility]. Patient and daughter reviewed list and prefers [facility]. Patient and denied additional needs or concerns. TANMAY OROZCO updated discharge financial planning assistant regarding referral to [facility]. CM will continue to follow this patient and plan for a safe discharge.
--- NOTE | 2023-09-25 11:06 | CASEMGMT ---
Discharge Planning HH referral sent to [facility] via [facility]. Crystal Krause, Discharge Planning Asst.
== END 2023-09-25 14:35 | disposition home health service (06) | DRG 291 ==
LOC: ED 15:57 → PCU 18:09
PROVIDERS: Admitting Provider Internal Medicine; Emergency Provider Emergency Medicine; PCP Internal Medicine; Visit Provider Internal Medicine
DX: I11.0 Hypertensive heart disease with heart failure (principal); I50.33 Acute on chronic diastolic (congestive) heart failure; E87.1 Hypo-osmolality and hyponatremia; N13.8 Other obstructive and reflux uropathy; Z79.01 Long term (current) use of anticoagulants; J44.9 Chronic obstructive pulmonary disease, unspecified; E66.01 Morbid (severe) obesity due to excess calories; I48.0 Paroxysmal atrial fibrillation; I25.118 Atherosclerotic heart disease of native coronary artery with other forms of angina pectoris; I25.10 Atherosclerotic heart disease of native coronary artery without angina pectoris; E78.00 Pure hypercholesterolemia, unspecified; G47.33 Obstructive sleep apnea (adult) (pediatric); E80.7 Disorder of bilirubin metabolism, unspecified; K04.7 Periapical abscess without sinus; Z95.5 Presence of coronary angioplasty implant and graft; Z11.52 Encounter for screening for COVID-19; N40.1 Benign prostatic hyperplasia with lower urinary tract symptoms; Z68.39 Body mass index [BMI] 39.0-39.9, adult; R53.81 Other malaise; Z79.82 Long term (current) use of aspirin; Z79.899 Other long term (current) drug therapy
CPT/HCPCS: 36415; 71045; 78452; 80048; 80053; 80076; 81001; 83735; 83880; 84100; 84443; 84484; 85025; 87631; 93005; 93017; 93306; 94668; 94762; 97162; 97166; 97802; 99285; A9500; Q9957; A4216; C8929; J1940; J2785

== ENCOUNTER → 2023-10-02 | Outpatient (CLI) | payer MEDICARE, OTHER, SELFPAY ==
[2023-09-26 15:39] VITALS: BMI 35.6
--- OUTSIDE RECORDS SUMMARY | 2023-10-02 09:22 | XMS RPT_ITS | CCD ---
Author Name Unknown Address [address] [place] [address] Organization [facility] Care Team Providers Care Audio Production Instructor Name Role Phone Sher Mendosa Primary Care Provider Chuck Paulino Unavailable Unavailable Chuck Paulino Unavailable Unavailable Sher Mendosa Unavailable Unavailabl e Chuck Paulino Unavailable Unavailable Unavailable Allergies Allergy Classification Reported Allergen(s) Allergy Type Date of Onset Reaction(s) Facility Peanuts and Peanut Containing Products (1 source) peanut Food Allergy Rash [facility] Work Phone: (1 source) Nut - Unspecified Propensity to adverse reactions to drug 8 Rash [facility] (2 sources) peanut Allergy to substance (finding) Rash [facility] Work Phone: Medications Current Medications Medication Drug Class(es) Dates Sig (Normalized) Sig (Original) betamethasone 0.5 mg/ml / clotrimazole 10 mg/ml topical cream (1 source) Azole Antifungal, Corticosteroid Start: 02-27-2018 clotrimazole-beta methasone (LOTRISONE) cream Apply 1 application topically 2 (two) times a day as needed. 0 02/27/2018 Active omega-3 fatty acids/fish oil (OMEGA 3 FISH OIL ORAL) (1 source) Start: 09-29-2012 take 1000 mg by mouth once daily omega-3 fatty acids/fish oil (OMEGA 3 FISH OIL ORAL) Take 1,000 mg by mouth daily. 0 09/29/2012 Active Completed/Discontinued Medications Medication Drug Class(es) Dates Sig (Normalized) Sig (Original) albuterol 0.83 mg/ml inhalation solution (2 sources) beta2-Adrenergic Agonist Start: 06-13-2020 Albuterol Sulfate (2.5 MG/3ML) 0.083% Inhalation Nebulization Solution 0.083% - 3ML DOSING UNITS INHALATION EVERY 6 HOURS ,X30 DAY(S) NEED Quantity: 1 Refills: 3 Ordered: 13-Jun-2020 Marcos Tolentino MD Start : 13-Jun-2020 Active amLODIPine 5 mg oral tablet (2 sources) Dihydropyridine Calcium Channel Perez Start: 07-08-2017 take 1 tablet by mouth once daily amLODIPine Besylate 5 MG Oral Tablet Take 1 tablet daily Quantity: 90 Refills: 3 Chuck Paulino MD Start : 24-Jul-2019 Active apixaban 5 mg oral tablet (2 sources) Factor Xa Inhibitor Start: 07-27-2020 take 1 tablet by mouth twice daily Eliquis 5 MG Oral Tablet Take 1 tablet twice daily Quantity: 60 Refills: 0 Ordered: 27-Jul-2020 DO Start : 27-Jul-2020 Active aspirin 81 mg delayed release oral tablet (2 sources) Platelet Aggregation Inhibitor, Nonsteroidal Anti-inflammatory Drug Start: 05-17-2015 take 1 tablet by mouth once daily Aspirin 81 MG Oral Tablet Delayed Release TAKE 1 TABLET DAILY. Refills: 0 Start : 24-Jul-2019 Active atorvastatin 20 mg oral tablet (4 sources) HMG-CoA Reductase Inhibitor Start: 07-24-2019 take 1 tablet by mouth once daily Atorvastatin Calcium 20 MG Oral Tablet Take 1 tablet daily Quantity: 90 Refills: 3 Ordered: 06-Jul-2020 Chuck Paulino MD Start : 24-Jul-2019 Active Problems Active Problems Problem Classification Problem Date Documented Da te Episodic/Chronic Allergic reactions (3 sources) Atopic dermatitis; Translations: [Other atopic dermatitis and related conditions] Chronic Cardiac dysrhythmias (4 sources) Atrial fibrillation; Translations: [Atrial fibrillation] Chronic Conduction disorders (2 sources) Left bundle branch block; Translations: [Other left bundle branch block] Chronic Congestive heart failure; nonhypertensive (2 sources) Chronic diastolic heart failure; Translations: [Chronic diastolic heart failure] Chronic Coronary atherosclerosis and other heart disease (4 sources) Calcification of coronary artery; Translations: [Coronary artery stenosis] Onset: 04-27-2018 04-27-2018 Chronic Diverticulosis and diverticulitis (3 sources) Diverticular disease; Translations: [Diverticulosis of colon (without mention of hemorrhage)] Chronic Essential hypertension (3 sources) Hypertensive disorder; Translations: [Unspecified essential hypertension] Chronic Fluid and electrolyte disorders (3 sources) Hypokalemia; Translations: [Hypopotassemia] Episodic Hyperplasia of prostate (3 sources) Benign prostatic hyperplasia; Translations: [Hypertrophy (benign) of prostate without urinary obstruction and other lower urinary tract symptom (LUTS)] Chronic Immunizations and screening for infectious disease (4 sources) Patient encounter status; Translations: [Other specified vaccination] Episodic Mycoses (2 sources) Candidal intertrigo; Translations: [Candidiasis of skin and nails] Episodic Other aftercare (2 sources) Post-discharge follow-up; Translations: [Other follow-up examination] Episodic Other diseases of kidney and ureters (2 sources) Cyst of kidney; Translations: [Cystic kidney disease, unspecified] Episodic Other diseases of veins and lymphatics (2 sources) Disorder of vein of lower extremity; Translations: [Varicose veins of lower extremities with inflammation] Episodic Other gastrointestinal disorders (2 sources) Swollen abdomen; Translations: [Flatulence, eructation, and gas pain] Episodic Other inflammatory condition of skin (2 sources) Pruritic rash; Translations: [Prurigo] Episodic Other injuries and conditions due to external causes (3 sources) Spider bite wound; Translations: [Toxic effect of venom] Episodic Other liver diseases (3 sources) Liver cyst; Translations: [Other specified disorders of liver] Chronic Other lower respiratory disease (2 sources) Dyspnea; Translations: [Shortness of breath] Episodic Other nutritional; endocrine; and metabolic disorders (1 source) Body mass index 40+ - severely obese; Translations: [Body mass index (BMI) of 40.0 to 44.9 in adult] Chronic Other nutritional; endocrine; and metabolic disorders (3 sources) Obesity; Translations: [Obesity, unspecified] Chronic Other nutritional; endocrine; and metabolic disorders (2 sources) Body mass index 30+ - obesity; Translations: [Body Mass Index 36.0-36.9, adult] Chronic Other screening for suspected conditions (not mental disorders or infectious disease) (9 sources) Thallium stress test abnormal; Translations: [Lung function restrictive] Resolved: 07-29-2019 Episodic Other skin disorders (3 sources) Eruption; Translations: [Rash and other nonspecific skin eruption] Episodic Other upper respiratory disease (2 sources) Bleeding from nose; Translations: [Epistaxis] Episodic Pulmonary heart disease (2 sources) Pulmonary hypertension; Translations: [Other chronic pulmonary heart diseases] Chronic Residual codes; unclassified (3 sources) Edema of lower extremity; Translations: [Edema] Episodic Residual codes; unclassified (2 sources) Body fluid retention; Translations: [Other fluid overload] Episodic Skin and subcutaneous tissue infections (2 sources) Cellulitis of lower limb; Translations: [Cellulitis and abscess of leg, except foot] Episodic Spondylosis; intervertebral disc disorders; other back problems (3 sources) Degeneration of lumbosacral intervertebral disc; Translations: [Degeneration of lumbar or lumbosacral intervertebral disc] Chronic Past or Other Problems Problem Classification Problem Date Documented Da te Episodic/Chronic Other diseases of kidney and ureters (1 source) Cyst of kidney; Translations: [Renal cyst, right] Unclassified (2 sources) Patient encounter status; Translations: [Encounter for immunization] NEGATED: Highlighted row has not occurred!Residual codes; unclassified (4 sources) Disease Episodic Results Test Name Value Interpretation Reference Range Facil ity Vital Signs Date Time Vital Sign Value Performing Clinician Faci lity 01-16-2021 16:04-0400 Body height 177.8 cm Chuck Downingyder Work Phone: [facility] Work Phone: 01-16-2021 16:04-0400 Body mass index (BMI) [Ratio] 38.65 kg/m2 Chuck Tylerer Work Phone: [facility] Work Phone: 01-16-2021 16:04-0400 Body surface area Derived from formula 2.37 m2 Chuck Tylerer Work Phone: [facility] Work Phone: 01-16-2021 16:04-0400 Body temperature 98 [degF] Chuck Tylerer Work Phone: [facility] Work Phone: 01-16-2021 16:04-0400 Body weight 122.19 kg Chuck Paulino Work Phone: [facility] Work Phone: 01-16-2021 16:04-0400 Diastolic blood pressure 60 mm[Hg] Chuck Paulino Work Phone: [facility] Work Phone: 01-16-2021 16:04-0400 Heart rate 68 /min Chuck Paulino Work Phone: [facility] Work Phone: 01-16-2021 16:04-0400 Systolic blood pressure 120 mm[Hg] Chuck Paulino Work Phone: [facility] Work Phone: 03-02-2020 10:33-0400 BMI (Body Mass Index) 40.18 kg/m2 Chuck Paulino [facility] Work Phone: 03-02-2020 10:33-0400 Body Temperature 97 [degF] Chuckkathy Paulino [facility] Work Phone: 03-02-2020 10:33-0400 Body weight 127 kg Chuck Paulino [facility] Work Phone: 03-02-2020 10:33-0400 BP Diastolic 80 mm[Hg] Chuck Paulino [facility] Work Phone: Encounters Encounter Date Encounter Type Care Provider Facility Start: 04-26-2021 Patient encounter procedure Chuck Paulino Work Phone: [facility] Work Phone: Start: 01-16-2021 Patient encounter procedure Chuck Paulino Work Phone: [facility] Work Phone: Start: 08-04-2020 End: 08-04-2020 Orders Only Cheri Alvarenga Catina Work Phone: [facility] Start: 03-02-2020 Patient encounter procedure Chuck Paulino [facility] Work Phone: Start: 12-31-2019 Patient encounter procedure Chuck Paulino [facility] Work Phone: Start: 07-29-2019 Patient encounter procedure Chuck Paulino [facility] Work Phone: Start: 05-18-2019 Patient encounter procedure Chuck Paulino [facility] Work Phone: Start: 07-03-2018 Patient encounter procedure Facility:[id number] Start: 04-13-2018 Patient encounter procedure Facility:[id number] Start: 03-27-2018 Patient encounter procedure Facility:[id number] Start: 01-20-2018 Patient encounter procedure Facility:[id number] Start: 12-30-2017 Patient encounter procedure Facility:[id number] Patient encounter procedure Chuck Paulino Work Phone: [facility] Work Phone: Procedures Date Procedure Procedure Detail Performing Clinician Start: 08-17-2020 Cardiac catheterization Chuck Tylerer Work Phone: Start: 08-17-2020 Placement of stent i n coronary artery Chuck Paulino Work Phone: Plan of Treatment Date Care Activity Detail Author Start: 03-21-2020 Influenza vaccination given Se quential Influenza Vaccine (#1) [facility] Start: 1987 Administration of he rpes zoster vaccine Zoster Vaccines (1 of 2) [facility] Start: 1949 Adolescent depressio n screening assessment Depression Screening (PHQ9) [facility] Start: 1940 History and physical examination, annual for health maintenance Wellness Visit [facility] Start: 1937 Fall risk assessment Falls Risk Asse ssment [facility] Start: 1937 Tetanus vaccination Tetanus: Every 1 0yrs [facility] Immunizations Immunization Date Immunization Notes Care Provider Flora garcia 04-26-2021 Fluzone High-Dose Quadrivalent 0.7 ML Intramuscular Suspension Prefilled Syringe; Translations: [Fluzone High-Dose Quadrivalent 0.7 ML Intramuscular Suspension Prefilled Syringe] Chuck Libby Paulino Work Phone: [facility] Work Phone: Payers Date Payer Category Payer Unknown AARP AARP [employer] [id number] 2017-Present [id number] 2002 Medicare MEDICARE MEDICAR E PART A & B [id number] 2002-Present ID 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 alcohol (finding) [facility] Sex Assigned At Not on file [facility] Never a smoker Never a smoker [facility] Work Phone: NEGATED: Highlighted row - - [facility] Work Phone: Functional Status Date Assessment Result Facility NEGATED: Highlighted row Functional performance Functional status health issues are not documented Disease [facility] Work Phone: Mental Status Date Assessment Result Facility NEGATED: Highlighted row Cognitive function [Interpretation] Cognitive status health issues are not documented Disease [facility] Work Phone: History of Present illness Narrative 01-09-2021 Note Date & Type Note Facility 01-09-2021 History of Present illness Narrative Scarlett is a 85-year-old male here with his . Patient is here for evaluation of the right lower extremity swelling and redness. Report that he has been having lower extremity edema for quite a few months now. He has continued to have erythema in bilateral lower extremities in the area of swelling for that time as well. However, last week they noticed blisters developed in the conroy areas. Patient denies pain in the area. Denies fever. [facility] Work Phone: Summary Purpose Family History Father Name Dates Details 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 hypertensi on(V17.49, Z82.49) Status:Active Unknown Family Member Name Dates Details 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 hypertensi on: Father(V17.49, Z82.49) Status:Active Unknown Family Member Name Dates Details 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 hypertensi on: Father(V17.49, Z82.49) Status:Active Advance Directives No Advanced Directives Records FoundNo Advanced Directives Records FoundNo Advanced Directives Records FoundNo Advanced Directives Records Found Hospital Course Note Send Summary: Discharge [facility] Providers: Provider RoleProvider Name AdyeeRocael Prater [facility]: Summary: Admission Date: .30-May-2020 10:33:00 Discharge Date: 02-Jun-2020 Attending Physician at Discharge: Malcom Black Admission Reason: Shortness of breath Final Discharge Diagnoses: COPD exacerbation, pneumonia Procedures: none Condition at Discharge: Satisfactory Disposition at Discharge: .Home Vital Signs: T PRBPSpO2 [id number]/7292% Date/Time06/01 21: 21: 21: 21: 21:15 Range(36.4C - 36.5C ) (82 - 85 ) (18 - 22 ) (132 - 137 )/ (72 - 82 ) (92% - 94% ) Date: Weight/Scale Type:Height: 30-May-2020 18:10525 kg / zoq213.3 cm Physical Exam: ENMT: He had a crowded oropharynx with no pharyngeal lesions. He had an upper partial dental device Head/Neck: His head was atraumatic and his neck was supple with no thyromegaly. He did have an increased neck circumference Respiratory/Thorax: No wheezing (more content not included)... Chief Complaint Eval redness on legspt here for flu vaccine , lot [id number], exp 01-17-22, [facility] [id number] deltoid pt tolerated well Additional Source Comments (unrecognized sect ion and content) No Status Records FoundNo Status Records FoundNo Status Records FoundNo Status Records Found INFORMATION SOURCE (unrecogn ized section and content) DATE CREATED AUTHOR AUTHOR'S ORGANIZ ATION 02/11/2019 [facility] DATE CREATED AUTHOR AUTHOR'S ORGANIZ ATION 07/22/2020 [facility] DATE CREATED AUTHOR AUTHOR'S ORGANIZ ATION 04/18/2021 [employer] FOR RECORDS PERTAINING TO PATIENTS WHO ARE OR HAVE BEEN ENROLLED IN A CHEMICAL DEPENDENCY/SUBSTANCEABUSE PROGRAM, SOME INFORMATION MAY BE OMITTED. This clinical summary was aggregated from multiple sources. Caution should be exercised in using it in the provision of clinical care. This summary normalizes information from multiple sources, and as a consequence, information in this document may materially change the coding, format and clinical context of patient data. In addition, data may be omitted in some cases. CLINICAL DECISIONS SHOULD BE BASED ON THE PRIMARY CLINICAL RECORDS. [facility]. provides no warranty or guarantee of the accuracy or completeness of information in this document.
[2023-10-02 10:22] LABS: Absolute Lymphocyte Count 1.01 X10^3/uL (0.83-4.51); Absolute Neutrophil Count 4.6 X10^3/uL (2.0-7.7); Basophil# 0.09 X10^3/uL; Basophil% 1.4 % (0-1); Eosinophil# 0.07 X10^3/uL; Eosinophils% 1.1 % (0-5); Hematocrit 39.8 % (40-54); Hemoglobin 13.8 g/dL (13.0-16.5); Lymphocyte # 1.01 X10^3/ul (0.83-4.51); Mean Corp Hgb Conc 34.7 g/dL (32-36); Mean Corpuscular Hgb 31.4 pg (27.0-32.0); Mean Corpuscular Volume 90.5 fL (80-94); Mean Platelet Vol. 10.5 fl (6.2-12.0); Monocyte# 0.57 X10^3/uL; NRBC Flagged by Analyzer 0 % (0-5); Neutrophil # 4.56 X10^3/uL (2.7-7.7); Neutrophil % 72.2 % (47-70); Platelet Count 262 K/mm3 (150-450); RBC Distribution Width CV 12.3 % (11.6-14.6); RBC Distribution Width SD 40.5 fl (35.1-43.9); White Blood Count 6.3 K/mm3 (4.4-11.0)
[2023-10-02 10:58] LABS: Vitamin D,25 Hydroxy 50.4 ng/mL
[2023-10-02 12:12] LABS: AST(SGOT) 26 U/L (15-37); Alanine Aminotransfer ALT/SGPT 23 U/L (16-61); Albumin, Serum 3.8 g/dL (3.2-5.0); Alkaline Phosphatase 135 U/L (45-117); Anion Gap 9 (5-15); BUN 27 mg/dL (7-18); BUN/Creat Ratio 22.3 RATIO (10-20); Calcium,Total 9.5 mg/dL (8.5-10.1); Chloride 99 mmol/L (98-107); Cholesterol 108 mg/dL (200); Creatinine, Serum 1.21 mg/dL (0.70-1.30); EST Glomerular Filtration Rate 60 mL/min (>60); Est Glom Filt Rate - Afr Amer 73 mL/min (>60); Glucose 108 mg/dL (74-106); High Density Lipoprotein 53 mg/dL; Magnesium 2.2 mg/dL (1.6-2.6); PSA,Total - Annual Screen 0.24 ng/mL (0.00-4.00); Potassium 4.4 mmol/L (3.5-5.1); Protein, Total 7.8 g/dL (6.4-8.2); Sodium Level 131 mmol/L (136-145); Thyroid Stim Hormone (TSH) 2.14 uIU/mL (0.358-3.74); Triglycerides 61 mg/dL; Very Low Density Lipoprotein 12 mg/dL (5-40)
== END | disposition home or self-care (01) ==
LOC: LAB 08:48
PROVIDERS: PCP Internal Medicine; Referring Provider Internal Medicine; Visit Provider Internal Medicine
DX: E87.1 Hypo-osmolality and hyponatremia (principal); J44.9 Chronic obstructive pulmonary disease, unspecified; I11.0 Hypertensive heart disease with heart failure; I50.32 Chronic diastolic (congestive) heart failure; R60.0 Localized edema; E66.9 Obesity, unspecified; Z95.5 Presence of coronary angioplasty implant and graft; E78.5 Hyperlipidemia, unspecified; G47.33 Obstructive sleep apnea (adult) (pediatric); E55.9 Vitamin D deficiency, unspecified; Z12.5 Encounter for screening for malignant neoplasm of prostate
CPT/HCPCS: 36415; 80053; 80061; 82306; 83735; 84153; 84443; 85025; G0103

== ENCOUNTER → 2023-10-06 | Outpatient (CLI) | payer MEDICARE, OTHER, SELFPAY ==
[2023-09-26 15:39] VITALS: BMI 35.6
[2023-10-06 08:30] LABS: Mucous, Urine 0 SEEN /hpf (<or=2+); Squamous Epithelial Cells - UA 0 SEEN /hpf (0-5)
[2023-10-06 10:47] LABS: Color, Urine Yellow (Yellow); Glucose, Dipstick Normal (Normal); Ketone-Dipstick 5 mg/dl (Negative); Leukocyte Esterase-Dipstick 500 /ul (Negative); Nitrite-Dipstick Positive (Negative); Occult Blood-Urine 250 /ul (Negative); Protein-Dipstick 100 mg/dl (Negative); Specific Gravity, Urine 1.015 (1.002-1.030); Urine Bilirubin Dipstick Negative (Negative); Urine Clarity Cloudy (Clear); Urine Urobilinogen Normal (Normal)
[2023-10-06 11:05] LABS: Bacteria 1+ /hpf (None Seen); Calcium Oxalate Crystals Ur RARE /hpf (<or=2+); Red Blood Cells-Urine 25-50 SEEN /hpf (0-5); White Blood Cells 25-50 SEEN /hpf (0-5)
== END | disposition home or self-care (01) ==
PROVIDERS: PCP Internal Medicine; Visit Provider Nurse Practitioner Family
DX: R30.0 Dysuria (principal)
CPT/HCPCS: 81001; 87077; 87086; 87088; 87186

== ENCOUNTER → 2023-10-20 | Outpatient (CLI) | payer MEDICARE, OTHER, SELFPAY ==
[2023-09-26 15:39] VITALS: BMI 35.6
[2023-10-20 17:08] LABS: Mucous, Urine 0 SEEN /hpf (<or=2+)
[2023-10-20 18:07] LABS: Color, Urine Yellow (Yellow); Glucose, Dipstick Normal (Normal); Ketone-Dipstick Negative (Negative); Leukocyte Esterase-Dipstick 500 /ul (Negative); Nitrite-Dipstick Negative (Negative); Occult Blood-Urine 25 /ul (Negative); Protein-Dipstick Negative (Negative); Urine Bilirubin Dipstick Negative (Negative); Urine Clarity Sl. Cloudy (Clear); Urine Urobilinogen Normal (Normal)
[2023-10-20 18:51] LABS: Bacteria 1+ /hpf (None Seen); Red Blood Cells-Urine 0-5 SEEN /hpf (0-5); Squamous Epithelial Cells - UA 0-5 SEEN /hpf (0-5); White Blood Cells >100 SEEN /hpf (0-5)
== END | disposition home or self-care (01) ==
LOC: LAB 16:48
PROVIDERS: PCP Internal Medicine; Referring Provider Internal Medicine; Visit Provider Internal Medicine
DX: N30.01 Acute cystitis with hematuria (principal)
CPT/HCPCS: 81001; 87077; 87086; 87088; 87186

== ENCOUNTER → 2023-10-29 | Outpatient (CLI) | payer MEDICARE, OTHER, SELFPAY ==
[2023-09-26 15:39] VITALS: BMI 35.6
--- NOTE | 2023-10-29 13:00 | US_ITS ---
INDICATION: Recurrent UTI. -- INCLUDE PVR. INCLUDE PVR. INCLUDE PVR EXAMINATION: Ultrasound US Kidney(s) complete (eg, kidneys and bladder) TECHNIQUE: Bettencourt scale and color doppler images were obtained of the kidneys. COMPARISON: FINDINGS: RIGHT KIDNEY: 11.8 x 5.7 x 5.1 cm. The cortex is 16 mm. There is no hydronephrosis. No shadowing calculus or perinephric collection is demonstrated. There is a lower pole 7.4 x 6.3 x 4.4 cm cyst. LEFT KIDNEY: 11.0 x 5.3 x 5.1 cm. The cortex is 12 mm.. There is no hydronephrosis. No shadowing calculus or perinephric collection is demonstrated. There is a 1.5 x 1.2 x 0.7 cm left mid renal cyst. URINARY BLADDER: Has a volume of 151 cc during imaging. 100 cc of postvoid residual. The prostate is enlarged measuring 6.3 x 5.1 x 5.4 cm. US/Kidney and Bladder IMPRESSION: Right lateral renal cysts. Enlarged prostate. Postvoid residual in the urinary bladder. Electronically Signed: Chris Pan DO at 16:25 EDT Reading Location ID and State: [facility] / [place] Tel [phone], Service support ,
== END | disposition home or self-care (01) ==
LOC: US 12:57
PROVIDERS: PCP Internal Medicine; Referring Provider Internal Medicine; Visit Provider Internal Medicine
DX: N30.01 Acute cystitis with hematuria (principal)
CPT/HCPCS: 76770

== ENCOUNTER → 2023-11-04 | Outpatient (CLI) | payer MEDICARE, OTHER, SELFPAY ==
[2023-09-26 15:39] VITALS: BMI 35.6
[2023-11-04 15:36] LABS: ALB/GLOB Ratio 0.9 RATIO (0.9-2.4); AST(SGOT) 32 U/L (15-37); Alanine Aminotransfer ALT/SGPT 32 U/L (16-61); Albumin, Serum 3.4 g/dL (3.2-5.0); Alkaline Phosphatase 106 U/L (45-117); Anion Gap 8 (5-15); BUN 32 mg/dL (7-18); BUN/Creat Ratio 21.8 RATIO (10-20); Calcium,Total 9.1 mg/dL (8.5-10.1); Chloride 100 mmol/L (98-107); Creatinine, Serum 1.47 mg/dL (0.70-1.30); EST Glomerular Filtration Rate 48 mL/min (>60); Est Glom Filt Rate - Afr Amer 58 mL/min (>60); Globulin 3.6 g/dL (2.2-4.2); Glucose 92 mg/dL (74-106); Potassium 4.5 mmol/L (3.5-5.1); Sodium Level 130 mmol/L (136-145)
== END | disposition home or self-care (01) ==
LOC: LAB 14:22
PROVIDERS: PCP Internal Medicine; Referring Provider Nurse Practitioner Family; Visit Provider Nurse Practitioner Family
DX: I11.0 Hypertensive heart disease with heart failure (principal); I50.32 Chronic diastolic (congestive) heart failure; E78.5 Hyperlipidemia, unspecified
CPT/HCPCS: 36415; 80053

== ENCOUNTER → 2023-11-17 | Outpatient (CLI) | payer MEDICARE, OTHER, SELFPAY ==
[2023-09-26 15:39] VITALS: BMI 35.6
[2023-11-17 12:41] LABS: Anion Gap 9 (5-15); BUN 32 mg/dL (7-18); Calcium,Total 9.1 mg/dL (8.5-10.1); Chloride 105 mmol/L (98-107); Creatinine, Serum 1.28 mg/dL (0.70-1.30); EST Glomerular Filtration Rate 57 mL/min (>60); Est Glom Filt Rate - Afr Amer 68 mL/min (>60); Glucose 119 mg/dL (74-106); Potassium 4.3 mmol/L (3.5-5.1); Sodium Level 134 mmol/L (136-145)
== END | disposition home or self-care (01) ==
LOC: LAB 11:08
PROVIDERS: PCP Internal Medicine; Referring Provider Nurse Practitioner Family; Visit Provider Nurse Practitioner Family
DX: E87.1 Hypo-osmolality and hyponatremia (principal)
CPT/HCPCS: 36415; 80048

== ENCOUNTER → 2023-12-19 | Outpatient (CLI) | payer MEDICARE, OTHER, SELFPAY ==
[2023-09-26 15:39] VITALS: BMI 35.6
[2023-12-19 15:15] LABS: BNP,B-Type NATRIURETIC PEPTIDE 157.9 pg/mL (0-100)
[2023-12-19 15:17] LABS: Anion Gap 8 (5-15); BUN 21 mg/dL (7-18); BUN/Creat Ratio 18.6 RATIO (10-20); Calcium,Total 9.2 mg/dL (8.5-10.1); Chloride 101 mmol/L (98-107); Creatinine, Serum 1.13 mg/dL (0.70-1.30); EST Glomerular Filtration Rate 65 mL/min (>60); Est Glom Filt Rate - Afr Amer 79 mL/min (>60); Glucose 85 mg/dL (74-106); Potassium 4.5 mmol/L (3.5-5.1); Sodium Level 131 mmol/L (136-145)
== END | disposition home or self-care (01) ==
LOC: LAB 13:47
PROVIDERS: PCP Internal Medicine; Referring Provider Internal Medicine; Visit Provider Internal Medicine
DX: E66.9 Obesity, unspecified (principal); I11.0 Hypertensive heart disease with heart failure; I50.32 Chronic diastolic (congestive) heart failure; J44.9 Chronic obstructive pulmonary disease, unspecified; I48.0 Paroxysmal atrial fibrillation; Z79.01 Long term (current) use of anticoagulants; Z95.5 Presence of coronary angioplasty implant and graft; E78.5 Hyperlipidemia, unspecified; G47.33 Obstructive sleep apnea (adult) (pediatric)
CPT/HCPCS: 36415; 80048; 83735; 83880

== ENCOUNTER 2024-04-07 12:51 | Emergency (ER) | payer MEDICARE, OTHER, SELFPAY ==
[2023-09-26 15:39] VITALS: BMI 35.6
[2024-04-07 12:51] VITALS: BP 127/79; PULSE 67; RESP 16; TEMP 36.9; O2SAT 95
[2024-04-07 13:53] VITALS: BP 120/72; PULSE 53; RESP 12; TEMP 36.7; O2SAT 98
--- NOTE | 2024-04-07 14:29 | EKG12_ITS ---
Test Reason : GENERAL Blood Pressure : / mmHG Vent. Rate : 052 BPM Atrial Rate : 000 BPM P-R Int : 000 ms QRS Dur : 138 ms QT Int : 532 ms P-R-T Axes : 000 -85 043 degrees QTc Int : 494 ms Atrial fibrillation with slow ventricular response Left axis deviation Right bundle branch block Inferior infarct (cited on or before 23-SEP-2023) Anterolateral infarct (cited on or before 23-SEP-2023) Abnormal ECG When compared with ECG of 23-SEP-2023 13:14, No significant change was found Confirmed by Lele Rabago ([id number]), script editor MAIKEL WHEATLEY ([id number]) on 04/12/2024 1:20:31 PM Referred By: Monica Hayden Confirmed By:Lele Rabago
--- NOTE | 2024-04-07 14:29 | RAD_ITS ---
EXAM: XR CHEST, 2 VIEWS CLINICAL INDICATION: sob, edema TECHNIQUE: Frontal and lateral views of the chest. COMPARISON: 09/23/2023. FINDINGS: LUNGS AND PLEURAL SPACES: Unremarkable. No suspicious infiltrates, consolidation or edema. No pleural effusion. No pneumothorax. HEART: Cardiomegaly is unchanged. MEDIASTINUM: Central airways and mediastinal contour are unremarkable. BONES/JOINTS: Unremarkable. No acute fracture. SOFT TISSUES: Unremarkable. RAD/Chest PA and Lateral IMPRESSION: No acute cardiopulmonary pathology and no significant change. Electronically Signed: Danilo Whatley MD at 15:19 EDT ,
--- NOTE | 2024-04-07 14:43 | EX.ED.DYSGE1 ---
HPI History of Present Illness Chief Complaint: Edema Informant: patient Narrative Narrative: Patient is an 88-year-old male with history of atrial fibrillation (on Eliquis) as well as coronary artery disease and chronic diastolic heart failure presenting with worsening swelling of his legs and now redness of his left lower extremity. notes that he recently had a 10 pound weight gain and he is having increased swelling of his legs with the left worse than the right. They called the nurse practitioner from cardiology and he was instructed to increase his Lasix from 40 mg a day to 100 mg a day 2 days ago. He is on his third day of this. He has since lost 3 pounds. Today however he has some increased of redness of the leg on the left popliteal fossa area as well as the left calf. No report of any fevers. Patient is having discomfort and states the redness on his calf butts and will keep him up at night. It does seem to be improved with Benadryl cream. He denies any exposures however to get a contact dermatitis. Patient and family voiced frustration of not really being able to get a hold of cardiology today and came in for further evaluation. In addition patient notes that he does wear a knee brace from the drugstore and it has been tighter on his left knee since he has had this increased swelling. Patient notes he has had a chronic dyspnea on exertion and does not feel like it is changed. He has a chronic cough which is also unchanged. He does not sleep well at night but sleeps in a reclining bed already. [facility] Medical History UTI (urinary tract infection) Smoker Chest pain Atrial fibrillation Anemia Skin tear High cholesterol Shortness of breath on exertion History of echocardiogram History of stress test Olecranon bursitis, right elbow Strain of tendon of right rotator cuff Insect bite of hand with infection Wears glasses Wears hearing aid Wears partial dentures Rash Arthritis Chewing tobacco use Non-smoker History of edema Cardiology follow-up encounter Syncope and collapse Persistent atrial fibrillation Epistaxis Chronic diastolic (congestive) heart failure Atherosclerotic heart disease of pauma coronary artery without angina pectoris BPH with urinary obstruction Hyperlipidemia Essential (primary) hypertension Obstructive sleep apnea Hypersomnia Hypoxia Renal cyst Diverticulitis Leg swelling Hiatal hernia COPD (chronic obstructive pulmonary disease) Home Medications ?Medication ?Instructions ?Recorded ?Last Taken ?Type cholecalciferol (vitamin D3) 25 25 mcg PO DAILY SUPPLEMENT 06/27/20 09/22/23 History mcg (1,000 unit) capsule vit C 250 mg-vit E 90 mg-zinc 40 1 tab PO DAILY supplement 06/27/20 09/22/23 History mg-copper 1 [id number] capsule (PreserVision AREDS-2) finasteride 5 mg tablet 5 mg PO DAILY PROSTATE 06/03/22 09/22/23 History tamsulosin 0.4 mg capsule 0.4 mg PO DAILY PROSTATE 06/03/22 09/22/23 History nitroglycerin 0.4 mg sublingual 0.4 mg sublingual Q5-15M PRN CHEST 10/31/22 Unknown Rx tablet PAIN #25 tabs turmeric 100 mg-nomi 150 1 cap PO DAILY 10/31/22 09/22/23 History mg-olive 50 mg-oreg 150 mg-capryl capsule coenzyme Q10 100 mg capsule 100 mg PO DAILY SUPPLEMENT 04/29/23 09/22/23 History (CoQ-10) spironolactone 25 mg tablet 25 mg PO DAILY BLOOD PRESSURE #90 04/29/23 09/22/23 Rx tabs albuterol sulfate 2.5 mg/3 mL 2.5 mg (3 mL) inhalation Q4H PRN 04/30/23 Unknown Rx (0.083 %) solution for nebulization shortness of breath or wheezing #75 mL apixaban 5 mg tablet (Eliquis) 5 mg PO BID BLOOD THINNER #180 05/30/23 09/23/23 Rx tabs aspirin 81 mg tablet,delayed 81 mg PO DAILY HEART HEALTH 09/23/23 09/22/23 History release (Adult Aspirin Regimen) atorvastatin 20 mg tablet (Lipitor) 20 mg PO DAILY CHOLESTEROL #90 12/01/23 Unknown Rx tabs furosemide 40 mg tablet (Lasix) 40 mg PO BID #60 tabs 01/02/24 Unknown Rx metoprolol succinate 25 mg 25 mg PO DAILY BLOOD PRESSURE #90 02/20/24 Unknown Rx tablet,extended release 24 hr tabs doxycycline hyclate 100 mg capsule 100 mg PO BID #14 caps 04/07/24 Unknown Rx Allergy/AdvReac Type Severity Reaction Status Date / Time peanut Allergy Itching Verified 04/07/24 12:54 levofloxacin (From Levaquin) AdvReac Rash Verified 04/07/24 12:54 Family History Brother Colon cancer Mother Hypertension Father Hypertension Other No pertinent family history Surgical History History of cardiac catheterization History of coronary artery stent placement (08/17/20) History of colonoscopy with polypectomy History of transurethral resection of prostate History of orchiectomy History of cataract surgery Social History Smoking Status: Never smoker alcohol intake: never substance use type: does not use caffeine: Yes Type: coffee Number of servings: 2 ROS ROS ED Constitutional Constitutional ED: Denies chills or fever(s) Cardiovascular Cardiovascular: Reports other Details: Increased lower extremity edema ; Denies chest pain or paroxysmal nocturnal dyspnea Respiratory/Chest Respiratory/Chest: Reports cough, dyspnea on exertion and other; Denies dyspnea or paroxysmal nocturnal dyspnea Gastrointestinal Gastrointestinal: Denies abdominal pain, nausea or vomiting Genitourinary Genitourinary ED: Reports other Details: Reports chronic frequency secondary to being on Lasix. Denies any recent change in his urine output. ; Denies dysuria or hematuria Musculoskeletal Musculoskeletal: Reports other Details: left calf pain and burning ; Denies arthralgias or myalgias Integumentary Reports rash Neurologic Neurologic: Reports weakness Hematologic/Lymphatic Hematologic/Lymphatic: Reports anemia and easy bleeding EXAM Physical Exam Const Vital Signs: 04/07/24 12:51 04/07/24 13:53 04/07/24 14:23 Temperature 98.4 F 98.1 F Temperature Source Temporal Oral Pulse Rate 67 53 L Respiratory Rate 16 12 Respiratory Effort Normal Respiratory Pattern Normal Blood Pressure 127/79 H 120/72 Blood Pressure Mean 95 88 Pulse Ox 95 98 Oxygen Delivery Method Room Air Room Air 04/07/24 14:51 04/07/24 16:00 Temperature Temperature Source Pulse Rate 59 L 77 Respiratory Rate 16 16 Respiratory Effort Respiratory Pattern Blood Pressure 127/77 H 118/72 Blood Pressure Mean 93 87 Pulse Ox 98 98 Oxygen Delivery Method Room Air Room Air Positive well nourished, well developed and obese; Negative for unkempt General Appearance ED: well developed; Negative for unkempt Nutritional Appearance: obese HEENT Reports moist mucous membranes Eyes PERRL Neck supple and no JVD Chest Wall inspection of chest normal and palpation of chest normal Resp normal respiratory effort and clear to auscultation bilaterally Resp Narrative: No crackles or rales appreciated Auscultation: Negative for diminished lung sounds Cardio regular rate, regular rhythm and no murmurs Cardio Narrative: 2+ radial and DP pulses present GI normal to inspection, nondistended, normoactive bowel sounds and non-tender Extremity Extremity Narrative: Bilateral pitting edema, 1+ on the right lower extremity and 2+ up to the pretibial region on the left lower extremity. Compartments are soft. No palpable cords. No deformity appreciated. General Extremety ED: Yes edema; Negative for tenderness General Extremity: edema Neuro oriented x3 Sensorium / Orientation: alert Motor Exam: general weakness Psych mental status grossly normal Appearance: Negative for unkempt Skin Skin Narrative: Patient is scattered area of petechia/ecchymosis of the right posterior distal thigh and knee. This is most consistent with traumatic process. No underlying hematomas appreciated. There is also scattered erythematous slightly raised on the left medial calf. No significant associated warmth, fluctuance or lymphangitic streaking. Patient has some very subtle erythema of the bilateral feet slightly more pronounced on the left. Other is an open wound/blister that does not appear acutely infected of the left anterior distal conroy. No drainage or oozing from the legs appreciated at this time. MDM MDM MDM Narrative Medical decision making narrative: Patient is evaluated for increased redness of the left lower extremity as well as increased lower extremity edema. He had a 10 pound weight gain however he started to lose weight since increasing his Lasix dose per the recommendation of cardiology. Differential includes decompensated heart failure, cellulitis, contact dermatitis and venous stasis. The erythema/ecchymosis behind the left knee is most consistent with bruising and I suspect secondary to his knee support band. I do not think this is acutely infectious. I have a low suspicion for DVT as patient is currently anticoagulant on Eliquis and has been compliant/not miss any doses. The area of erythema of the left mid calf looks more consistent with a contact dermatitis and patient states Benadryl cream does help. It is possible that there could be some early cellulitis to the left lower extremity as well. Will check labs including a troponin, BNP, CBC and BMP as well as magnesium as patient has not had a recent increase of his Lasix. Will also check a chest x-ray and EKG. Workup largely normal. Chest x-ray viewed by myself as well as radiology does not show any acute process. Specifically does not appear like he is acutely fluid overloaded or new pleural effusions. He is mildly anemic but his hemoglobin is at his baseline. Platelets are normal. His BNP is 152 which is at his baseline. He is mildly hyponatremic with a sodium of 127 I suspect it is from his recent diuresis. I do not think he requires admission as patient does have some chronic mild hyponatremia (131 in November). Kidney function is at his baseline with a creatinine of 1.15. Magnesium is normal at 1.9. His potassium is normal at 4.0. High sensitive troponin is normal at 56. He is not having any chest pain and does not have a story concerning for angina. I discussed the case with Dr. Anderson, cardiology, who is in agreement patient be a candidate for outpatient follow-up. Will call the office tomorrow for further recommendations as far as diuresis. At this time it seems that he is tolerating it well and responding to outpatient therapy. In addition we will start the patient on doxycycline for concern of developing cellulitis of the left lower extremity. Patient counseled to elevate his legs and wear compression stockings as well. Given return precautions such as developing a fever, worsening redness, shortness of breath or chest pain. He and his verbalized agreement and understand this plan. Patient is given first dose of doxycycline in the emergency room. Lab Data Attestation: I reviewed the patient's lab results. Labs: Laboratory Results - last 24 hr 04/07/24 14:40 WBC 6.8 RBC 4.16 L Hgb 12.5 L Hct 36.5 L MCV 87.7 MCH 30.0 MCHC 34.2 RDW Std Deviation 39.1 RDW Coeff of Armani 12.2 Plt Count 249 MPV 10.0 Immature Gran % (Auto) 0.300 Neut % (Auto) 74.2 H Lymph % (Auto) 12.9 L [place] % (Auto) 10.1 H Eos % (Auto) 1.6 Baso % (Auto) 0.9 Absolute Neuts (auto) 5.1 Absolute Lymphs (auto) 0.88 Nucleated RBC % 0 Sodium 127 L Potassium 4.0 Chloride 94 L Carbon Dioxide 22.0 Anion Gap 11 BUN 23 H Creatinine 1.15 Est GFR (MDRD) Af Amer 77 Est GFR (MDRD) Non-Af 64 BUN/Creatinine Ratio 20.0 Glucose 114 H Calcium 9.7 Magnesium 1.9 Troponin I High Sens 56 B-Natriuretic Peptide 152.0 H Radiography Diagnostic Testing: Clinical Impression(s) from Imaging Studies Chest X-Ray 04/07/24 14:29 IMPRESSION: No acute cardiopulmonary pathology and no significant change. Electronically Signed: Danilo Whatley MD at 15:19 EDT Reading Location ID and State: [facility] / [place] , Service support , Rhythm Strip Rhythm Strip: A-fib Rate: 52 Ectopy: None EKG Initial EKG: Attestation: I personally reviewed and interpreted this EKG as follows: Interpretation: Atrial Fibrillation Comments: Atrial fibrillation at a rate of 52 bpm Left axis deviation Right bundle branch block Normal ST segments Discharge Plan Triage Chief Complaint: Edema ED Provider: Monica Hayden Dx/Rx/DC Orders Clinical Impression: Cellulitis of left leg, Bilateral lower extremity edema Instructions: ED Cellulitis, ED Peripheral Edema, Bilateral Prescriptions: New doxycycline hyclate 100 mg capsule 100 mg PO BID Qty: 14 0RF No Action PreserVision AREDS-2 [id number]-mg capsule 1 tab PO DAILY Rx Instructions: administer with meals cholecalciferol (vitamin D3) 25 mcg (1,000 unit) capsule 25 mcg PO DAILY tamsulosin 0.4 mg capsule 0.4 mg PO DAILY finasteride 5 mg tablet 5 mg PO DAILY [id number]-oreg-capry 100 mg-150 mg- 50 mg-150 mg capsule 1 cap PO DAILY nitroglycerin 0.4 mg tablet, sublingual 0.4 mg SUBLINGUAL Q5-15M PRN (Reason: CHEST PAIN ) Qty: 25 3RF Rx Instructions: do not exceed 3 doses per episode coenzyme Q10 [CoQ-10] 100 mg capsule 100 mg PO DAILY spironolactone 25 mg tablet 25 mg PO DAILY Qty: 90 3RF atorvastatin [Lipitor] 20 mg tablet 20 mg PO DAILY Qty: 90 3RF furosemide [Lasix] 40 mg tablet 40 mg PO BID Qty: 60 4RF aspirin [Adult Aspirin Regimen] 81 mg tablet,delayed release (DR/EC) 81 mg PO DAILY albuterol sulfate 2.5 mg /3 mL (0.083 %) solution for nebulization 2.5 mg inhalation Q4H PRN (Reason: shortness of breath or wheezing) Qty: 75 1RF Eliquis 5 mg tablet 5 mg PO BID Qty: 180 4RF metoprolol succinate 25 mg tablet extended release 24 hr 25 mg PO DAILY Qty: 90 3RF Primary Care Provider: Daphne Woods Referrals: Fabio Garcia MD [Med Staff - Active Staff] - As soon as possible Daphne Woods MD [Primary Care Provider] - Activity Restrictions/Additional Instructions: Please follow-up with your primary care doctor early next week for wound check of your legs. Please continue to follow-up with cardiology for further recommendations on your diuresing/water pill. Elevate your legs and wear compression stockings to help with the swelling. It is possible you are developing an early cellulitis of the left lower extremity so you have been started on antibiotics for this. Print Language: Tajik Disposition Disposition: Home, Self Care
[2024-04-07 14:51] VITALS: BP 127/77; PULSE 59; RESP 16; O2SAT 98
[2024-04-07 14:55] LABS: Absolute Lymphocyte Count 0.88 X10^3/uL (0.83-4.51); Absolute Neutrophil Count 5.1 X10^3/uL (2.0-7.7); Basophil# 0.06 X10^3/uL; Basophil% 0.9 % (0-1); Eosinophil# 0.11 X10^3/uL; Eosinophils% 1.6 % (0-5); Hematocrit 36.5 % (40-54); Hemoglobin 12.5 g/dL (13.0-16.5); Lymphocyte # 0.88 X10^3/ul (0.83-4.51); Lymphocyte % 12.9 % (19-41); Mean Corp Hgb Conc 34.2 g/dL (32-36); Mean Corpuscular Volume 87.7 fL (80-94); Monocyte# 0.69 X10^3/uL; Monocyte% 10.1 % (0-10); NRBC Flagged by Analyzer 0 % (0-5); Neutrophil # 5.06 X10^3/uL (2.7-7.7); Neutrophil % 74.2 % (47-70); Platelet Count 249 K/mm3 (150-450); RBC Distribution Width CV 12.2 % (11.6-14.6); RBC Distribution Width SD 39.1 fl (35.1-43.9); Red Blood Count 4.16 M/mm3 (4.6-6.2); White Blood Count 6.8 K/mm3 (4.4-11.0)
[2024-04-07 15:16] LABS: Anion Gap 11 (5-15); BUN 23 mg/dL (7-18); Calcium,Total 9.7 mg/dL (8.5-10.1); Chloride 94 mmol/L (98-107); Creatinine, Serum 1.15 mg/dL (0.70-1.30); EST Glomerular Filtration Rate 64 mL/min (>60); Est Glom Filt Rate - Afr Amer 77 mL/min (>60); Glucose 114 mg/dL (74-106); Magnesium 1.9 mg/dL (1.6-2.6); Sodium Level 127 mmol/L (136-145); Troponin-I HS 56 pg/mL (3.0-78.0)
[2024-04-07 15:35] VITALS: O2SAT 99
[2024-04-07 16:00] VITALS: BP 118/72; PULSE 77; RESP 16; O2SAT 98
[2024-04-07] MEDS: Doxycycline 100 MG CAPSULE PO (17:39)
[2024-04-07 17:40] VITALS: BP 117/80; PULSE 84; RESP 16; TEMP 36.6; O2SAT 99
== END 2024-04-07 17:41 | disposition home or self-care (01) ==
PROVIDERS: Emergency Provider Emergency Medicine; PCP Internal Medicine; Referring Provider Emergency Medicine; Visit Provider Emergency Medicine
DX: L03.116 Cellulitis of left lower limb (principal); I50.32 Chronic diastolic (congestive) heart failure; I11.0 Hypertensive heart disease with heart failure; J44.9 Chronic obstructive pulmonary disease, unspecified; I48.19 Other persistent atrial fibrillation; E87.1 Hypo-osmolality and hyponatremia; E78.00 Pure hypercholesterolemia, unspecified; D64.9 Anemia, unspecified; I25.10 Atherosclerotic heart disease of native coronary artery without angina pectoris; R60.0 Localized edema; Z79.01 Long term (current) use of anticoagulants; E66.9 Obesity, unspecified
CPT/HCPCS: 71046; 80048; 83735; 83880; 84484; 85025; 93005; 99283; A4216

== ENCOUNTER → 2024-05-07 | Outpatient (CLI) | payer MEDICARE, OTHER, SELFPAY ==
[2023-09-26 15:39] VITALS: BMI 35.6
[2024-05-07 11:58] LABS: Uric Acid 7.7 mg/dL (3.5-7.2)
== END | disposition home or self-care (01) ==
LOC: LAB 10:21
PROVIDERS: PCP Internal Medicine; Referring Provider Internal Medicine; Visit Provider Internal Medicine
DX: M25.562 Pain in left knee (principal); G89.29 Other chronic pain
CPT/HCPCS: 36415; 84550

== ENCOUNTER 2024-05-19 15:22 | Emergency (ER) | payer MEDICARE, OTHER, SELFPAY ==
[2023-09-26 15:39] VITALS: BMI 35.6
[2024-05-19 15:23] VITALS: BP 110/59; PULSE 56; RESP 18; TEMP 35.8; O2SAT 99
[2024-05-19 16:50] LABS: Absolute Lymphocyte Count 1.21 X10^3/uL (0.83-4.51); Absolute Neutrophil Count 5.6 X10^3/uL (2.0-7.7); Basophil# 0.07 X10^3/uL; Basophil% 0.9 % (0-1); Eosinophil# 0.08 X10^3/uL; Hematocrit 38.4 % (40-54); Hemoglobin 12.9 g/dL (13.0-16.5); Lymphocyte # 1.21 X10^3/ul (0.83-4.51); Lymphocyte % 15.8 % (19-41); Mean Corp Hgb Conc 33.6 g/dL (32-36); Mean Corpuscular Hgb 30.5 pg (27.0-32.0); Mean Corpuscular Volume 90.8 fL (80-94); Mean Platelet Vol. 10.3 fl (6.2-12.0); Monocyte# 0.68 X10^3/uL; Monocyte% 8.9 % (0-10); NRBC Flagged by Analyzer 0 % (0-5); Neutrophil # 5.61 X10^3/uL (2.7-7.7); Platelet Count 200 K/mm3 (150-450); RBC Distribution Width CV 13.6 % (11.6-14.6); RBC Distribution Width SD 45.6 fl (35.1-43.9); Red Blood Count 4.23 M/mm3 (4.6-6.2); White Blood Count 7.7 K/mm3 (4.4-11.0)
[2024-05-19 17:06] LABS: Anion Gap 7 (5-15); BUN 35 mg/dL (7-18); BUN/Creat Ratio 21.6 RATIO (10-20); Calcium,Total 9.2 mg/dL (8.5-10.1); Chloride 101 mmol/L (98-107); Creatinine, Serum 1.62 mg/dL (0.70-1.30); EST Glomerular Filtration Rate 43 mL/min (>60); Est Glom Filt Rate - Afr Amer 52 mL/min (>60); Glucose 99 mg/dL (74-106); Sodium Level 131 mmol/L (136-145)
[2024-05-19 17:22] VITALS: BP 104/65; PULSE 60; RESP 16; TEMP 36.1; O2SAT 100
[2024-05-19 19:43] VITALS: BP 121/60; PULSE 62; RESP 16; TEMP 36.4; O2SAT 100
[2024-05-19 21:00] VITALS: BP 127/65; PULSE 56; RESP 17; O2SAT 96
--- OUTSIDE RECORDS SUMMARY | 2024-05-19 21:13 | XMS RPT_ITS | CCD ---
Author Organization [facility] Inform ion Partnership [facility] Care Team Providers Care Oracle Application Architect Name Role Phone Sher Mendosa Primary Care Provider Chuck Paulino Unavailable Unavailable Chuck Paulino Unavailable Unavailable Sher Mendosa Unavailable Unavailabl e Chuck Paulino Unavailable Unavailable Unavailable HONEY FORD Attending Unavailable LA NAIR Primary Care Unavailable HONEY FORD Attending Unavailable LA NAIR Primary Care Unavailable LA NAIR Primary Care Unavailable FLYNN FOOTE Attending Unavailable Allergies Allergy Classification Reported Allergen(s) Allergy Type Date of Onset Reaction(s) Facility Peanuts and Peanut Containing Products (1 source) peanut Food Allergy Rash [facility] Work Phone: (3 sources) Nut - Unspecified; Translations: [NUT - UNSPECIFIED] Propensity to adverse reactions to drug 8 Rash [facility] (2 sources) peanut Allergy to substance (finding) Rash [facility] Work Phone: (2 sources) levoFLOXacin; Translations: [LEVOFLOXACIN] Drug Allergy 4 [facility] Two Repository Medications Current Medications Medication Drug Class(es) Dates [...] Chuck Paulino MD Start : 24-Jul-2019 Active Start: 04-08-2018 take 1 tablet by kelsey once daily atorvastatin (LIPITOR) 40 MG tablet Take 40 mg by mouth daily . 0 04/08/2018 Active cholecalciferol 0.05 mg oral tablet (4 sources) Vitamin D Start: 07-24-2019 take 1 tablet by mouth every week Vitamin D3 50 MCG (1999 UT) Oral Tablet TAKE 1 TABLET Weekly Quantity: 0 Refills: 0 Ordered: 24-Jul-2019 DO Start : 24-Jul-2019 Active Start: 01-12-2014 take 1 tablet by kelsey th twice daily cholecalciferol, vitamin D3, (VITAMIN D3) 2,000 unit cap Take 1 tablet by mouth 2 (two) times a day . 0 01/12/2014 Active clopidogrel 75 mg oral tablet (2 sources) P2Y12 Platelet Inhibitor Start: 10-20-2020 take 1 tablet by mouth once daily Clopidogrel Bisulfate 75 MG Oral Tablet TAKE 1 TABLET DAILY. Quantity: 90 Refills: 3 Ordered: 20-Oct-2020 Chuck Paulino MD Start : 20-Oct-2020 Active ubidecarenone 100 mg oral capsule (4 sources) Start: 07-08-2017 take 1 capsule by mouth once daily Co Q 10 100 MG Oral Capsule TAKE 1 CAPSULE Daily Quantity: 0 Refills: 0 Ordered: 24-Jul-2019 DO Start : 24-Jul-2019 Active finasteride 5 mg oral tablet (2 sources) 5-alpha Reductase Inhibitor Start: 04-17-2018 take 1 tablet by mouth once daily Finasteride 5 MG Oral Tablet TAKE 1 TABLET DAILY. Quantity: 90 Refills: 3 Chuck Paulino MD Start : 24-Jul-2019 Active furosemide 40 mg oral tablet (2 sources) Loop Diuretic Start: 07-27-2020 take 1 tablet by mouth twice daily Furosemide 40 MG Oral Tablet Take 1 tablet twice daily Quantity: 0 Refills: 0 Ordered: 27-Jul-2020 DO Start : 27-Jul-2020 Active hydroCHLOROthiazide 12.5 mg / lisinopril 10 mg oral tablet (2 sources) Thiazide Diuretic, Angiotensin Converting Enzyme Inhibitor Start: 07-12-2019 take 1 tablet by mouth once daily Lisinopril-hydro CHLOROthiazide 10-12.5 MG Oral Tablet TAKE 1 TABLET DAILY. Quantity: 90 Refills: 1 Chuck Paulino MD Start : 12-Jul-2019 Active Start: 04-17-2018 take 10-12.5 mg by mouth once lisinopril-hydrochlorothiazide (PRINZIDE,ZESTORETIC) 10-12.5 mg per tablet Take 1 tablet by mouth daily. 3 04/17/2018 Active lisinopril 2.5 mg oral tablet (2 sources) Angiotensin Converting Enzyme Inhibitor Start: 12-29-2020 take 1 tablet by mouth once daily Lisinopril 2.5 MG Oral Tablet TAKE 1 TABLET DAILY. Quantity: 90 Refills: 1 Ordered: 29-Dec-2020 DO Start : 29-Dec-2020 Active 24 hr metoprolol succinate 25 mg extended release oral tablet (2 sources) beta-Adrenergic Perez Start: 07-27-2020 take 1 tablet by mouth every twenty-four hours Metoprolol Succinate ER 25 MG Oral Tablet Extended Release 24 Hour Quantity: 0 Refills: 0 Ordered: 27-Jul-2020 DO Start : 27-Jul-2020 Active nystatin 100 unt/mg topical ointment (2 sources) Polyene Antifungal Start: 10-20-2020 Nystatin 10 0000 UNIT/GM External Ointment APPLY 2-3 TIMES DAILY TO AFFECTED AREA(S). Quantity: 1 Refills: 3 Ordered: 16-Jan-2021 Maranda ONTIVEROS, MPH, Toy More Start : 20-Oct-2020 Active Problems Active Problems Problem Classification Problem [...] [Coronary artery stenosis] Onset: 04-27-2018 04-27-2018 Chronic Diseases of mouth; excluding dental (4 sources) Other lesions of oral mucosa; Translations: [Other lesions of oral mucosa] Onset: 12-22-2023 Episodic Diverticulosis and diverticulitis (3 sources) Diverticular disease; [...] Results Test Name Value Interpretation Reference Range Facility ED Prov Noteon 12-22-[address] [facility] EMERGENCY [facility]PARTMENT [place] NOTE: NAME: Scarlett Stevens CSN: [id number] 88 y.o. PCP: La Nair MD History: Chief Complaint: DENTAL BLEEDING HPI: The history was obtained from the patient. Scarlett is a 88 y.o. male who presents with a chief complaint of DENTAL BLEEDING. Patient comes emergency room with chief complaint of bleeding from his gums. He states that he did have a procedure that removed some of his teeth approximately 1 week ago. Patient does currently take apixaban but held his medication for 3 days for the procedure and then held the medication and only took a baby aspirin as he did have some mild continued bleeding. He was seen by ENT for recent episode of continued bleeding early this morning at [facility] ED. Bleeding was able to be discontinued by Dr. Ford at that time and patient was discharged stable condition. The patient does have an appointment to see his oral surgeon at 2 PM today but was told to come to the emergency room due to continued bleeding. No headache weakness or dizziness. Patient has not been choking. PMHx: Past Medical History: Diagnosis Date Atopic eczema BPH (benign prostatic hyperplasia) Degenerative disc disease, lumbar Diverticulitis Hepatic cyst High coronary artery calcium score Hypertension Lung nodule Obese Renal cyst PMSx: Past Surgical History: Procedure Laterality Date PROSTATE SURGERY TESTICLE SURGERY Left FAM. Hx: History reviewed. No pertinent family history. SOC. Hx: Social History Socioeconomic History Marital status: Tobacco Use Smoking status: Never Smokeless tobacco: Current Types: Chew Vaping Use Vaping Use: Never used Substance and Sexual Activity Alcohol use: No Drug use: No MEDs: Previous Medications Medication Sig amLODIPine (NORVASC) 5 MG tablet Take 1 tablet by mouth daily. apixaban 5 mg Tab Take by mouth . aspirin 81 MG EC tablet Take 1 tablet by mouth daily. atorvastatin (LIPITOR) 40 MG tablet Take 40 mg by mouth daily . cholecalciferol, vitamin D3, (VITAMIN D3) 2,000 unit cap Take 1 tablet by mouth 2 (two) times a day . clotrimazole-betamethasone (LOTRISONE) cream Apply 1 application topically 2 (two) times a day as needed. coenzyme Q10 (CO Q-10) 100 mg capsule Take 100 mg by mouth daily. finasteride (PROSCAR) 5 mg tablet Take 5 mg by mouth daily. lisinopril-hydrochlorothia zide (PRINZIDE,ZESTORETIC) 10-12.5 mg per tablet Take 1 tablet by mouth daily. omega-3 fatty acids/fish oil (OMEGA 3 FISH OIL ORAL) Take 1,000 mg by mouth daily. ALL: Allergies Allergen Reactions Levaquin [Levofloxacin] Anaphylaxis Nut - Unspecified Rash Peanut allergy ROS: Review of Systems Positives and pertinent negatives as per HPI. All other systems were reviewed and are negative. Physical Exam: No data found. Physical Exam Vitals and nursing note reviewed. Constitutional: General: He is not in acute distress. Appearance: Normal appearance. He is not ill-appearing. HENT: Head: Normocephalic and atraumatic. Mouth/Throat: Mouth: Mucous membranes are moist. Dentition: Abnormal dentition. No gingival swelling or dental abscesses. Comments: Bleeding from the gums with clot formation. No active hemorrhaging. Cardiovascular: Rate and Rhythm: Normal rate and regular rhythm. Pulses: Normal pulses. Heart sounds: Normal heart sounds. Pulmonary: Effort: Pulmonary effort is normal. No respiratory distress. Breath sounds: Normal breath sounds. No wheezing. Skin: General: Skin is warm. Capillary Refill: Capillary refill takes less than 2 seconds. Coloration: Skin is not pale. Findings: No rash. Neurological: General: No focal deficit present. Mental Status: He is alert and oriented to person, place, and time. Laboratory & Radiological Imaging (if done): Labs Reviewed - No data to display No orders to display ED Course / Medical Decision Making: I did personally review Scarlett's past medical history, surgical history, social history, as well as family history (when relevant). In this case, I also oversaw the his drug management by reviewing his medication list, allergy list, as well as the medications that I prescribed during the ED course and/or recommended as an out-patient (including possible OTC medications such as acetaminophen, NSAIDs , etc). His past medical problem list included: Active Ambulatory Problems Diagnosis Date Noted High coronary artery calcium score 04/27/2018 Resolved Ambulatory Problems Diagnosis Date Noted No Resolved Ambulatory Problems Past Medical History: Diagnosis Date Atopic eczema BPH (benign prostatic hyperplasia) Degenerative disc disease, lumbar Diverticulitis Hepatic cyst Hypertension Lung nodule Obese Renal cyst ED MEDICATIONS GIVEN: Medications - No data to display After reviewing the items above, I did look at previous (more content not included)... Normal [facility] ED Prov Note HPI: 12/22/2023, Time: @NOWNR@ Scarlett Stevens is a 88 y.o. male presenting to the ED for recurrence of bleeding from the gums status post multiple teeth extractions on 11 December, beginning last few hours ago. The complaint has been constant, moderate in severity, and worsened by nothing. Bleeding temporarily stopped with use of Surgicel and stop clot a few hours ago in the emergency department and patient sent home ROS: Pertinent positives and negatives are stated within HPI, all other systems reviewed and are negative. PAST HISTORY Past Medical History: @[facility]@ Past Surgical History: has a past surgical history that includes Prostate surgery and Testicle surgery (Left). Social History: reports that he has never smoked. He has never used smokeless tobacco. He reports that he does not drink alcohol and does not use drugs. Family History: family history is not on file. The patient's home medications have been reviewed. Allergies: Levaquin [levofloxacin] and Nut - unspecified RESULTS All laboratory and radiology results have been personally reviewed by myself LABS: No results found for this or any previous visit. RADIOLOGY: Interpreted by Radiologist. No orders to display NURSING NOTES AND VITALS REVIEWED - The nursing notes within the ED encounter and vital signs as below have been reviewed. BP 135/84 (BP Location: Left arm, Patient Position: Sitting) Pulse 72 Temp 97.1 degrees F (36.2 degrees C) (Temporal) Resp 18 SpO2 98% Oxygen Saturation Interpretation: Normal P HYSICAL EXAM Constitutional/General: Alert and oriented x3, well appearing, non toxic in NAD Head: NC/AT Eyes: PERRL, EOMI Mouth: Oropharynx clear, handling secretions, no trismus, active bleeding from upper gingiva along with clot Neck: Supple, full ROM, no meningeal signs Pulmonary: Lungs clear to auscultation bilaterally, no wheezes, rales, or rhonchi. Not in respiratory distress Cardiovascular: Regular rate and rhythm, no murmurs, gallops, or rubs. 2+ distal pulses Abdomen: Soft, non tender, non distended, Extremities: Moves all extremities x 4. Warm and well perfused Skin: warm and dry without rash Neurologic: GCS 15, Psych: Normal Affect ---- ED COURSE/MEDICAL DECISION MAKING -- Medications phenylephrine (SRINIVASAN-SYNEPHRINE) 0.5 % nasal spray 2 spray (2 sprays Other Given 12/22/23533) Medical Decision Making: Bleeding stopped using wound seal MD along with Srinivasan-Synephrine saturated cotton balls x 2 applications, no complications and procedure successful, no bleeding at this point, patient will call his oral surgeon at 8 AM for appointment preferably today Counseling: The emergency provider has spoken with the patient and discussed today's results, in addition to providing specific details for the plan of care and counseling regarding the diagnosis and prognosis. Questions are answered at this time and they are agreeable with the plan. ------- IMPRESSION AND DISPOSITION ------- IMPRESSION 1. Mouth bleeding DISPOSITION Disposition: discharged to home Patient condition is stable Summation Patient Course: Much improved ED Medications administered this visit: Medications phenylephrine (SRINIVASAN-SYNEPHRINE) 0.5 % nasal spray 2 spray (2 sprays Other Given 12/22/23533) New Prescriptions from this visit: Follow-up: Your oral surgeon this morning Final Impression: 1. Mouth bleeding (Please note that portions of this note were completed with a voice recognition program. Efforts were made to edit the dictations but occasionally words are mis-transcribed.) Honey Ford MD 12/22/23 0608 AUTHENTICATED BY HONEY FORD, ON 12/22/2023 06:08:36 [facility] ED Prov Note HPI: 12/22/2023, Time: @NOWMELVIN@ Scarlett Stevens is a 88 y.o. male presenting to the ED for bleeding from mouth status post multiple teeth extraction on January 11, beginning over the last hour ago. The complaint has been constant, moderate in severity, and worsened by nothing. No alleviating factors ROS: Pertinent positives and negatives are stated within HPI, all other systems reviewed and are negative. PAST HISTORY Past Medical History: @[facility]@ Past Surgical History: has a past surgical history that includes Prostate surgery and Testicle surgery (Left). Social History: reports that he has never smoked. He has never used smokeless tobacco. He reports that he does not drink alcohol and does not use drugs. Family History: family history is not on file. The patient's home medications have been reviewed. Allergies: Levaquin [levofloxacin] and Nut - unspecified RESULTS All laboratory and radiology results have been personally reviewed by myself LABS: No results found for this or any previous visit. RADIOLOGY: Interpreted by Radiologist. No orders to display NURSING NOTES AND VITALS REVIEWED - The nursing notes within the ED encounter and vital signs as below have been reviewed. BP 129/84 Pulse 67 Temp 98 degrees F (36.7 degrees C) Resp 16 SpO2 98% Oxygen Saturation Interpretation: Normal P HYSICAL EXAM Constitutional/General: Alert and oriented x3, well appearing, non toxic in NAD Head: NC/AT Eyes: PERRL, EOMI Mouth: Oropharynx clear, handling secretions, no trismus, active bleeding with clots from empty dental sockets from previous right upper premolar Neck: Supple, full ROM, no meningeal signs Pulmonary: Lungs clear to auscultation bilaterally, no wheezes, rales, or rhonchi. Not in respiratory distress Cardiovascular: Regular rate and rhythm, no murmurs, gallops, or rubs. 2+ distal pulses Abdomen: Soft, non tender, non distended, Extremities: Moves all extremities x 4. Warm and well perfused Skin: warm and dry without rash Neurologic: GCS 15, Psych: Normal Affect ---- ED COURSE/MEDICAL DECISION MAKING -- Medications - No data to display Medical Decision Making: Attempting to use both surgeries and stop clot dressing along with pressure with dry gauze, much improved after a few applications of stop clot dressing and Surgicel along with direct pressure and biting down on gauze, patient to follow-up with his oral surgeon in the morning Counseling: The emergency provider has spoken with the patient and discussed today's results, in addition to providing specific details for the plan of care and counseling regarding the diagnosis and prognosis. Questions are answered at this time and they are agreeable with the plan. ------- IMPRESSION AND DISPOSITION ------- IMPRESSION No diagnosis found. DISPOSITION Disposition: discharged to home Patient condition is stable Summation Patient Course: Much improved see above ED Medications administered this visit: Medications - No data to display New Prescriptions from this visit: Follow-up: No follow-up provider specified. Final Impression: No diagnosis found. (Please note that portions of this note were completed with a voice recognition program. Efforts were made to edit the dictations but occasionally words are mis-transcribed.) Honey Ford MD 12/22/23 0141 AUTHENTICATED BY HONEY FORD, ON 12/22/2023 01:41:49 Normal [facility] Office Visit (Family Vidhi rao)on 01-16-2021 Follow-up visit Orders Monilial intertrigo Renew: Nystatin 851170 UNIT/GM External Ointment; APPLY 2-3 TIMES DAILY TO AFFECTED AREA(S) Provider Impressions Patient's more likely secondary to extensive edema and venous stasis. No concerns of cellulitis at this time. Discussed about the potential complications and signs to look for. Recommended compression stockings to be used to help with reducing the edema in the lower extremities. If noticing complications recommended to seek immediate medical attention. Follow-up with PCP as scheduled. Sooner if worsening of symptoms as discussed above. Chief Complaint Eval redness on legs History of Present Illness Scarlett is a 85-year-old male here with [...] denies pain in the area. Denies fever. Review of Systems ROS negative except discussed above in HPI. 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) Cellulitis of lower extremity, unspecified laterality (682.6) (L03.119) Chronic diastolic heart failure of unknown etiology (428.32) (I50.32) Coronary artery stenosis (414.00) (I25.10) DDD (degenerative disc disease), lumbosacral (722.52) (M51.37) Diverticulosis (562.10) (K57.90) Encounter for immunization (V03.89) (Z23) Epistaxis (784.7) (R04.0) Extreme obesity (278.00) (E66.8) Fluid retention (276.69) (R60.9) Hepatic cyst (573.8) (K76.89) High coronary artery calcium score (414.00) (R93.1) Hospital discharge follow-up (V67.59) (Z09) HTN (hypertension) (401.9) (I10) Hypokalemia (276.8) (E87.6) Left axis deviation (794.31) (R94.31) Lower extremity edema (782.3) (R60.0) Medicare annual wellness visit, initial (V70.0) (Z00.00) Medication management (V58.69) (Z79.899) Monilial intertrigo (112.3) (B37.2) Other persistent atrial fibrillation (427.31) (I48.19) Pruritic rash (698.2) (L28.2) Pulmonary hypertension (416.8) (I27.20) Rash (782.1) (R21) Renal cyst, right (753.10) (N28.1) 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) Shortness of breath (786.05) (R06.02) Venous stasis dermatitis of lower extremity (454.1) (I87.2) Past Medical History History of Abnormal nuclear stress test (794.39) (R94.39) Resolved Date: 29 Jul 2019 Surgical History History of Cardiac catheterization History of Cataract surgery History of Colonic polypectomy History of Colonoscopy History of Coronary artery stent placement drug eludtng stent [employer], Synergy stent 4.0mm x 24mm [id number] ref [id number] gtin [id number] History of Orchiectomy History of Prostate resection transurethral Family History 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 hypertension (V17.49) (Z82.49) Social History Never a smoker No recent foreign travel Patient has living will (V49.89) (Z78.9) Allergies Peanuts Rash; Recorded By: Fernanda Smith; 07/24/2019 9:35:35 AM Current Meds Medication NameInstructionReason Furosemide 40 MG Oral TabletTake 1 tablet twice dailyChronic diastolic heart failure of unknown etiology, Lower extremity edema Clopidogrel Bisulfate 75 MG Oral TabletTAKE 1 TABLET DAILY.Coronary artery stenosis Co Q 10 100 MG Oral CapsuleTAKE 1 CAPSULE DailyHealth Maintenance Vitamin D3 50 MCG (1999 UT) Oral TabletTAKE 1 TABLET WeeklyHealth Maintenance Atorvastatin Calcium 20 MG Oral TabletTake 1 tablet dailyHigh coronary artery calcium score Lisinopril 2.5 MG Oral TabletTAKE 1 TABLET DAILY.HTN (hypertension) Nystatin 344698 UNIT/GM External OintmentAPPLY 2-3 TIMES DAILY TO AFFECTED AREA(S).Monilial intertrigo Eliquis 5 MG Oral TabletTake 1 tablet twice dailyOther persistent atrial fibrillation Metoprolol Succinate ER 25 MG Oral Tablet Extended Release 24 HourOther persistent atrial fibrillation Albuterol Sulfate (2.5 MG/3ML) 0.083% Inhalation Nebulization Solution0.083% - 3ML DOSING UNITS INHALATION EVERY 6 HOURS ,X30 DAY(S) NEEDShortness of breath Vitals Vital Signs Recorded: 16Jan2021 04:04PM [id number] F Heart Rate68 Jzhicfqw589, LUE Klikoxzun77, LUE Height5 ft 10 in Mspomh641 lb 6 oz BMI Ryddfamkps81.65 kg/m2 BSA Calculated2.37 Tobacco Useb) No Fall Screeninga) No falls within the last year Physical Exam Constitutional: Alert and in no acute distress. Well developed, well nourished. Cardiovascular: Heart rate and rhythm were normal, normal S1 and S2, no gallops, no murmurs and no pericardial rub. (more content not included)... Normal [facility] Tobacco Screening.on 021 Fall risk assessment a) No falls within the last year [facility] Work Phone: Tobacco use status [facility] b) No [facility] Work Phone: Office Visiton 10-20-2020 Follow-up visit Diagnoses/Problems Coronary artery stenosis (414.00) (I25.10) History of Body mass index (BMI) of 40.0 to 44.9 in adult (V85.41) (Z68.41) History of Morbid obesity with body mass index (BMI) of 40.0 or higher (278.01) (E66.01) Body mass index (BMI) of 36.0 to 36.9 in adult (V85.36) (Z68.36) Chronic diastolic heart failure of unknown etiology (428.32) (I50.32) Other persistent atrial fibrillation (427.31) (I48.19) Pulmonary hypertension (416.8) (I27.20) Atopic eczema (691.8) (L20.9) Monilial intertrigo (112.3) (B37.2) Orders Monilial intertrigo Start: Nystatin 322046 UNIT/GM External Ointment; APPLY 2-3 TIMES DAILY TO AFFECTED AREA(S) Patient Discussion/Summary Nystatin for the yeast infection under the breast. For the rash on the abdomen use OTC moisturizing cream after you shower History of Present Illness Morbid obesity - has lost about 50 pounds mostly of fluid So now BMI 36. Exercising more as he has been doing rehab CAD, Diastolic heart failure, Atrial fibrillation -still was in this with the stent August 17. The pulmonary hypertension. Was told borderline on the CHUCHO so no CPAP for now. And the edema is much better. Discolored skin is much better. Dr Garcia in [place] for heart and Dr Berry for lungs/ The diastolic heart failure is better and in cardiac rehab. Main reason for visit is a rash on the chest for the last 2 weeks. Seems to have started and felt to be yeast infection in Rehab. He does get pads on chest but not at that spot. Seems to have started intertrigo. Then spread from their. Butenafine from [facility] seemed to almost clear it up. Then got Lotrimin and that did not work as well. But also has a rash on the abdomen that is different. A bit itchy on the abdomen and more under the breast. None on the legs but discolored Has slightly raised lesions intertrigo. 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) Cellulitis of lower extremity, unspecified laterality (682.6) (L03.119) Chronic diastolic heart failure of unknown etiology (428.32) (I50.32) Coronary artery stenosis (414.00) (I25.10) DDD (degenerative disc disease), lumbosacral (722.52) (M51.37) Diverticulosis (562.10) (K57.90) Encounter for immunization (V03.89) (Z23) Epistaxis (784.7) (R04.0) Extreme obesity (278.00) (E66.8) Fluid retention (276.69) (R60.9) Hepatic cyst (573.8) (K76.89) High coronary artery calcium score (414.00) (R93.1) Hospital discharge follow-up (V67.59) (Z09) HTN (hypertension) (401.9) (I10) Hypokalemia (276.8) (E87.6) Left axis deviation (794.31) (R94.31) Lower extremity edema (782.3) (R60.0) Medicare annual wellness visit, initial (V70.0) (Z00.00) Medication management (V58.69) (Z79.899) Other persistent atrial fibrillation (427.31) (I48.19) Pruritic rash (698.2) (L28.2) Pulmonary hypertension (416.8) (I27.20) Rash (782.1) (R21) Renal cyst, right (753.10) (N28.1) 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) Shortness of breath (786.05) (R06.02) Venous stasis dermatitis of lower extremity (454.1) (I87.2) Past Medical History History of Abnormal nuclear stress test (794.39) (R94.39) Resolved Date: 29 Jul 2019 Surgical History History of Cardiac catheterization History of Cataract surgery History of Colonic polypectomy History of Colonoscopy History of Coronary artery stent placement drug eludtng stent Evolita, Synergy stent 4.0mm x 24mm [id number] ref [id number] [facility] [id number] History of Orchiectomy History of Prostate resection transurethral Social History Never a smoker No recent foreign travel Patient has living will (V49.89) (Z78.9) Allergies Peanuts Rash; Recorded By: Fernanda Smith; 07/24/2019 9:35:35 AM Current Meds Medication NameInstruction Albuterol Sulfate (2.5 MG/3ML) 0.083% Inhalation Nebulization Solution0.083% - 3ML DOSING UNITS INHALATION EVERY 6 HOURS ,X30 DAY(S) NEED Atorvastatin Calcium 20 MG Oral TabletTake 1 tablet daily Clopidogrel Bisulfate 75 MG Oral TabletTAKE 1 TABLET DAILY. Co Q 10 100 MG Oral CapsuleTAKE 1 CAPSULE Daily Eliquis 5 MG Oral TabletTake 1 tablet twice daily Finasteride 5 MG Oral TabletTAKE 1 TABLET DAILY. Furosemide 40 MG Oral TabletTAKE 1 TABLET TWICE DAILY. Lisinopril 10 MG Oral TabletTake 1 tablet daily Metoprolol Succinate ER 50 MG Oral Tablet Extended Release 24 HourTake 1 tablet daily Spironolactone 50 MG Oral TabletTake 1 tablet daily Vitamin D3 50 MCG (1999) Oral TabletTAKE 1 TABLET Weekly Vitals Vital Signs Recorded: [id number] 03:40PM Heart Rate76 Zxhtpwkl742, LUE Qzdwdfmzs52, LUE Height5 ft 10 in Wggtwm507 lb BMI Cjpabkrekf56.73 BSA Calculated2.32 Tobacco (more content not included)... Normal [facility] Office Visiton 07-20-2020 Follow-up visit Chief Complaint edema History of Present Clevsvl16/17/20 Hypertension - No Chest pain, palpitations, numbness, weakness, claudication, or double vision/ loss of vision. Edema is much worse. Now with rash. Still comes and goes. Admitted to [facility]. Dyspnea felt to respiratory. 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 Normal function. No blood in urine. He is on Amlodipine and Aldactone and furosemide. He has low sodium that seems to be due to the Lasix. As was better off of it. Wheezing at times. Did see a lung doctor and PFT shows restrictive lung disease. ECHO shows DD but good EF at 50%. Also not able to look at the RV function Nebulizer does help breathing. Sodium is 129 now with Lasix I think. Has been helpful. Rash on legs and over most of the body. Stared after he was on the hospital. Had been off Lasix since in hospital. Added spironolactone for swelling after the rash. Cephalexin for Cellulitis. Off of that now Was on Levaquin when he went home for pneumonia but had none on CT or CXR. Nose bleed since in hospital Plan: For the shortness of breath and edema 1. Stop the amlodipine 2. Double up on the Lasix to twice a day 3. Await workup with the lung doctor 4. Keep using aerosol two to 4 times a day 5. I think the swelling is due to the lung issue not the heart primarily 6. I will see you in 2 weeks and get labs prior to that 7 Keep on spironolactone 8. Use Neosporin on the nose The rash is likely due to the Levaquin and should fade The rash on the legs as least partially is due to the swelling and should get better as the swelling goes down Keep legs elevated 07/20/20 The BP is doing well off of amlodipine The Lasix made him urinate more and the abdomen was less distended Weight is about the same He has oxygen sats in the 90s Had sleep study last week with no results To see Dr Garcia at [place] for his heart CMP shows better sodium at 134 and normal creatinine The nosebleeds are resolved for now The rash is better but still butts and itches but much less red and intense. 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.52) (M51.37) Diverticulosis (562.10) (K57.90) Encounter for immunization (V03.89) (Z23) Epistaxis (784.7) (R04.0) Extreme obesity (278.00) (E66.8) Fluid retention (276.69) (R60.9) Hepatic cyst (573.8) (K76.89) High coronary artery calcium score (414.00) (R93.1) Hospital discharge follow-up (V67.59) (Z09) HTN (hypertension) (401.9) (I10) Hypokalemia (276.8) (E87.6) Lower extremity edema (782.3) (R60.0) Medicare annual wellness visit, initial (V70.0) (Z00.00) Medication management (V58.69) (Z79.899) Morbid obesity with body mass index (BMI) of 40.0 or higher (278.01) (E66.01) Pruritic rash (698.2) (L28.2) Pulmonary hypertension (416.8) (I27.20) Rash (782.1) (R21) Renal cyst, right (753.10) (N28.1) 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) Shortness of breath (786.05) (R06.02) Venous stasis dermatitis of lower extremity (454.1) (I87.2) Past Medical History History of Abnormal nuclear stress test (794.39) (R94.39) Surgical History History of Cataract surgery History of Colonic polypectomy History of Colonoscopy History of Orchiectomy History of Prostate resection transurethral Social History Never a smoker No recent foreign travel Patient has living will (V49.89) (Z78.9) Allergies Peanuts Rash; Recorded By: Fernanda Smith; 07/24/2019 9:35:35 AM Current Meds Finasteride 5 MG Oral Tablet; TAKE 1 TABLET DAILY; Therapy: 27Zjk5717 to (Evaluate:72Apk8544) Requested for: 09Vei1215; Last Rx:[id number] Ordered Rx By: Chuck Paulino; Dispense: 90 Days ; #:90 Tablet; Refill: 3;For: BPH (benign prostatic hyperplasia); WILL = N; Verified Transmission to [facility]; Last Updated By: System, ViSSee; 07/06/2020 4:02:19 PM Spironolactone 50 MG Oral Tablet (Aldactone); Take 1 tablet daily; Therapy: 83Yjc3196 to (Last Rx:[id number]) Requested for: 25Mai3580 Ordered Rx By: Chuck Paulino; Dispense: 0 Days ; #:30 Tablet; Refill: 0;For: Cellulitis of lower extremity, unspecified laterality; WILL = N; Verified Transmission to [facility]; Last Updated By: [employer]; 07/06/2020 4:16:52 PM Furosemide 20 MG Oral Tablet; TAKE 1 TABLET TWICE DAILY; Therapy: 58Rgz5387 to (Evaluate:72Vny4457) Requested for: 42Syi6240; Last Rx:[id number] Ordered Rx By: Chuck Paulino; Dispense: (more content not included)... Normal [facility] PANEL 2019 Albumin [Mass/Vol] 3.8 g/dL Normal 3.4 - 5.0 [facility] Comment on above: Performed By: #### C MP ####[address] [address] ALP [Catalytic activity/Vol] 118 U/L Normal 33 - 136 [facility] Comment on above: Performed By: #### C MP ####[address] [address] ALT [Catalytic activity/Vol] 18 U/L Normal 10 - 52 [facility] Comment on above: Result Comment: Latoya ents treated with Sulfasalazine may generate falsely decreased results for ALT. Performed By: #### C MP ####[address] [address] Anion gap [Moles/Vol] 12 mmol/L Normal 10 - 20 [facility] Comment on above: Performed By: #### C MP ####[address] [address] AST [Catalytic activity/Vol] 23 U/L Normal 9 - 39 [facility] Comment on above: Performed By: #### C MP ####[place] [id number] Bilirubin [Mass/Vol] 0.6 mg/dL Normal 0.0 - 1.2 [facility] Comment on above: Performed By: #### C MP ####[place] [id number] Calcium [Mass/Vol] 9.0 mg/dL Normal 8.6 - 10.3 [facility] Comment on above: Performed By: #### C MP ####[place] [id number] Chloride [Moles/Vol] 102 mmol/L Normal 98 - 107 [facility] Comment on above: Performed By: #### C MP ####[place] [id number] Creatinine [Mass/Vol] 0.82 mg/dL Normal 0.50 - 1.30 [facility] Comment on above: Performed By: #### C MP ####[place] [id number] GFR- AM. >60 Normal >60 [facility] Comment on above: Result Comment: CALC ULATIONS OF ESTIMATED GFR ARE PERFORMED USING THE MDRD STUDY EQUATION FOR THE IDMS-TRACEABLE CREATININE METHODS. CLIN CHEM 2007;53:766-72 Performed By: #### C MP ####[place] [id number] GFR-NON AM. >60 Normal >60 [facility] Comment on above: Performed By: #### C MP ####[place] [id number] Glucose [Mass/Vol] 80 mg/dL Normal 74 - 99 [facility] Comment on above: Performed By: #### C MP ####[place] [id number] HCO3 (Bld) [Moles/Vol] 25 mmol/L Normal 21 - 32 [facility] Comment on above: Performed By: #### C MP ####[place] [id number] Potassium [Moles/Vol] 4.5 mmol/L Normal 3.5 - 5.3 [facility] Comment on above: Performed By: #### C MP ####[address] [address] Protein [Mass/Vol] 6.5 g/dL Normal 6.4 - 8.2 [facility] Comment on above: Performed By: #### C MP ####[address] [address] Sodium [Moles/Vol] 134 mmol/L Low 136 - 145 [facility] Comment on above: Performed By: #### C MP ####[address] [address] Urea nitrogen [Mass/Vol] 16 mg/dL Normal 6 - 23 [facility] Comment on above: Performed By: #### C MP ####[address] [address] Medicare Annual Wellness Vis iton 07-06-2020 Medicare Annual Wellness Visit *Chief Complaint AWV and Medck History of Present Illness The patient is being seen for the initial annual wellness visit. Past Medical, Surgical and Family History: reviewed and updated in chart. Medications and Supplements: Medications and supplements, including calcium and vitamins reviewed and updated in chart. No, the patient is not using opioids. Patient Self Assessment of Health Status: good. Tobacco use: User The patient is a former cigarette smoker, is a current smokeless tobacco user and quit 65 years ago. Alcohol use: Non-User Illicit drug use: Non-User Current diet: Heart Healthy Diet, does consume adequate fluids and does consume caffeine. Exercise Frequency: regularly. Depression/Suicide Screening: . During the past 2 weeks, the patient has not felt down, depressed or hopeless. During the past 2 weeks, the patient has not felt little interest or pleasure in doing things. Hearing Impairment: Patient has significant hearing impairment, bilaterally, He uses a hearing aid. Cognitive Impairment: No cognitive impairment observed, patient or family reported no cognitive impairment. Bathing: performs independently. Dressing: performs independently. Walking: performs independently. Managing Finances: performs independently. Shopping: performs independently. Housework / Basic 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 Falls Risk Screening:. SCARLETT has not fallen in the last 6 months. Home safety risk factors: none. Advance directives:. Patient has living will. Placed in chart. Patient has healthcare POA. Placed in chart. Patient's End of Life Decisions: End of life decisions were reviewed with the patient. I agree to follow the patient's decisions. Abnormal nuclear stress test felt to be either old infarct or artifact. So no further evaluation needed per Dr Barth. No chest pain. No chest pain or racing heart. Atopic eczema - has been on legs. Uses OTC cream.. Will have flares at times. But now from swelling and getting worse. BPH (benign prostatic hyperplasia) - has been good since he has TURP with Dr Murrieta. Nocturia X 2. Degenerative disc disease, lumbar - has been not too bad. Diverticulosis - no pain or blood Morbid obesity - up 3 pounds this time. Has not been good with the diet. Hearing loss - needs to ask to repeat. Was tested yesterday. Still has hearing aids. Hepatic cyst - noted on CT in past with no pain. High CACS - so now on statin with recommendation to keep LDL under [address] Barth. Could not tolerate on 40 mg and feels fine on 20. Hypertension - No Chest pain, palpitations, numbness, weakness, claudication, or double vision/ loss of vision. Edema is much worse. Now with rash. Still comes and goes. Admitted to [facility]. Dyspnea felt to respiratory. 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 Normal function. No blood in urine. He is on Amlodipine and Aldactone and furosemide. He has low sodium that seems to be due to the Lasix. As was better off of it. Wheezing at times. Did see a lung doctor and PFT shows restrictive lung disease. ECHO shows DD but good EF at 50%. Also not able to look at the RV function Nebulizer does help breathing. Sodium is 129 now with Lasix I think. Has been helpful. Rash on legs and over most of the body. Stared after he was on the hospital. Had been off Lasix since in hospital. Added spironolactone for swelling after the rash. Cephalexin for Cellulitis. Off of that now Was on Levaquin when he went home for pneumonia but had none on CT or CXR. 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) (M51.37) Diverticulosis (562.10) (K57.90) Encounter for immunization (V03.89) (Z23) Extreme obesity (278.00) (E66.8) Fluid retention (276.69) (R60.9) Hepatic cyst (573.8) (K76.89) High coronary artery calcium score (414.00) (R93.1) Hospital discharge follow-up (V67.59) (Z09) HTN (hypertension) (401.9) (I10) Hypokalemia (276.8) (E87.6) Lower extremity edema (782.3) (R60.0) Medicare annual wellness visit, initial (V70.0) (Z00.00) Medication management (V58.69) (Z79.899) Morbid obesity with body mass index (BMI) of 40.0 or higher (278.01) (E66.01) Pruritic rash (698.2) (L28.2) Rash (782.1) (R21) Renal cyst, right (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 Normal [facility] COMPREHENSIVE PANELon 2019 Albumin [Mass/Vol] 3.9 g/dL Normal 3.4 - 5.0 [facility] Comment on above: Performed By: #### C MP ####[address] [address] ALP [Catalytic activity/Vol] 109 U/L Normal 33 - 136 [facility] Comment on above: Performed By: #### C MP ####[address] [address] ALT [Catalytic activity/Vol] 15 U/L Normal 10 - 52 [facility] Comment on above: Result Comment: Latoya ents treated with Sulfasalazine may generate falsely decreased results for ALT. Performed By: #### C MP ####[place] [address] Anion gap [Moles/Vol] 10 mmol/L Normal 10 - 20 [facility] Comment on above: Performed By: #### C MP ####[place] [id number] AST [Catalytic activity/Vol] 24 U/L Normal 9 - 39 [facility] Comment on above: Performed By: #### C MP ####[place] [id number] Bilirubin [Mass/Vol] 0.8 mg/dL Normal 0.0 - 1.2 [facility] Comment on above: Performed By: #### C MP ####[place] [address] Calcium [Mass/Vol] 9.0 mg/dL Normal 8.6 - 10.3 [facility] Comment on above: Performed By: #### C MP ####[place] [id number] Chloride [Moles/Vol] 99 mmol/L Normal 98 - 107 [facility] Comment on above: Performed By: #### C MP ####[address] [address] Creatinine [Mass/Vol] 0.73 mg/dL Normal 0.50 - 1.30 [facility] Comment on above: Performed By: #### C MP ####[place] [id number] GFR- AM. >60 Normal >60 [facility] Comment on above: Result Comment: CALC ULATIONS OF ESTIMATED GFR ARE PERFORMED USING THE MDRD STUDY EQUATION FOR THE IDMS-TRACEABLE CREATININE METHODS. CLIN CHEM 2007;53:766-72 Performed By: #### C MP ####[address] [address] GFR-NON AM. >60 Normal >60 [facility] Comment on above: Performed By: #### C MP ####[address] [address] Glucose [Mass/Vol] 98 mg/dL Normal 74 - 99 [facility] Comment on above: Performed By: #### C MP ####[address] [address] HCO3 (Bld) [Moles/Vol] 25 mmol/L Normal 21 - 32 [facility] Comment on above: Performed By: #### C MP ####[address] [address] Potassium [Moles/Vol] 4.5 mmol/L Normal 3.5 - 5.3 [facility] Comment on above: Performed By: #### C MP ####[address] [address] Protein [Mass/Vol] 6.5 g/dL Normal 6.4 - 8.2 [facility] Comment on above: Performed By: #### C MP ####[address] [address] Sodium [Moles/Vol] 129 mmol/L Low 136 - 145 [facility] Comment on above: Performed By: #### C MP ####[address] [address] Urea nitrogen [Mass/Vol] 13 mg/dL Normal 6 - 23 [facility] Comment on above: Performed By: #### C MP ####[address] [address] LIPID PANEL (CORONARY RISK 2 )on 06-30-2020 Cholesterol [Mass/Vol] 95 mg/dL Normal 0 - 199 [facility] Comment on above: Result Comment: . AGE DESIRABLE BORDERLINE HIGH HIGH 0-19 Y 0 - 169 170 - 199 >/= 200 20-24 Y 0 - 189 190 - 224 >/= 225 >24 Y 0 - 199 200 - 239 >/= 240 All ranges are based on fasting samples. Specific therapeutic targets will vary based on patient-specific cardiac risk. . Pediatric guidelines reference:Pediatrics 2011, 128(S5). Adult guidelines reference: NCEP ATPIII Guidelines, EDUARDA 2001, 258:2486-97 . Venipuncture immediately after or during the administration of Metamizole may lead to falsely low results. Testing should be performed immediately prior to Metamizole dosing. Performed By: #### B MP #### [address] [address] Cholesterol in HDL [Mass/Vol] 48.0 mg/dL Normal [facility] Comment on above: Result Comment: . AGE VERY LOW LOW NORMAL HIGH 0-19 Y < 35 < 40 40-45 ---- 20-24 Y ---- < 40 >45 ---- >24 Y ---- < 40 40-60 >60 . Performed By: #### B MP #### [address] [address] Cholesterol in LDL [Mass/Vol] 37 mg/dL Normal 0 - 99 [facility] Comment on above: Result Comment: . NEAR BORD AGE DESIRABLE OPTIMAL HIGH HIGH VERY HIGH 0-19 Y 0 - 109 --- 110-129 >/= 130 ---- 20-24 Y 0 - 119 --- 120-159 >/= 160 ---- >24 Y 0 - 99 100-129 130-159 160-189 >/=190 . Performed By: #### B MP #### [address] [address] Cholesterol in VLDL [Mass/Vol] 10 mg/dL Normal 0 - 40 [facility] Comment on above: Performed By: #### B MP #### [address] [address] Cholesterol.total/ Cholesterol in HDL [Mass ratio] 2.0 {ratio} Normal [facility] Comment on above: Result Comment: REF VALUES DESIRABLE < 3.4 HIGH RISK > 5.0 Performed By: #### B MP #### [address] [address] Triglyceride [Mass/Vol] 48 mg/dL Normal 0 - 149 [facility] Comment on above: Result Comment: . AGE DESIRABLE BORDERLINE HIGH HIGH VERY HIGH 0 D-90 D 19 - 174 ---- ---- ---- 91 D- 9 Y 0 - 74 75 - 99 >/= 100 ---- 10-19 Y 0 - 89 90 - 129 >/= 130 ---- 20-24 Y 0 - 114 115 - 149 >/= 150 ---- >24 Y 0 - 149 150 - 199 200- 499 >/= 500 . Venipuncture immediately after or during the administration of Metamizole may lead to falsely low results. Testing should be performed immediately prior to Metamizole dosing. Performed By: #### B #### [address] [address] Provider Note - ED v2on 05-21 Provider Note - ED v2 Provider Note - ED v2: Chart Review: ED NOTES ED NOTES: ====HPI==== Patient presents emergency department today complaining of rash. He says that he had a rash on his ankles and it goes all the way up to his abdomen. He said that it started while he was in the hospital. He was being treated with Levaquin. He has had no fevers or chills. He did have a lot of weight gain after discharge from the hospital. He said the rash continues which worries him and he also has spoken with Dr. Tolentino who started him on spironolactone to try to get the extra fluid off and he has had 2 doses now any report is working. He also was started on Keflex after over the phone it sounded as though he was starting to get a skin infection. Character: Severity: Mild to moderate Exacerbated by: Nothing Improved by: Nothing Recently seen by: Denies ====Review of Systems==== 10 point system review is negative ====Physical Exam==== Constitutional/General: Alert and oriented x3, well appearing, nontoxic, and in NAD. Head: Normocephalic and atraumatic. Eyes: PERRL, EOMI, conjunctive normal, sclera nonicteric, subconjunctival layer is pink. Mouth: Oropharynx clear, handling secretions, no trismus, no asymmetry of the posterior oropharynx or uvular edema Neck: Supple, full ROM, non tender to palpation in the midline, no stridor, no crepitus, no meningeal signs. Trachea at midline. Respiratory: Lungs clear to auscultation bilaterally, no wheezes, rales, or rhonchi, not in respiratory distress. Cardiovascular: Regular rate, regular rhythm, no murmurs, gallops, or rubs, 2+ distal pulses. Chest: normal chest wall movement GI: Abdomen soft, nontender, nondistended, + BS, no organomegaly, no palpable masses, no rebound, guarding, or rigidity. Musculoskeletal: Moves all extremities x4, warm and well perfused, no clubbing, cyanosis, , cap refill <3 seconds Integument: Skin warm and dry, patchy confluence and rash of the lower extremities and thighs extending to patches on his abdomen and thorax. He has 2+ edema in his lower extremities Lymphatic: No lymphadenopathy noted. Neurologic: GCS 15, no focal deficits, symmetric strength 5/5 in the upper and lower extremities bilaterally. Psychiatric: Normal affect. ====ED Course and Medical Decision Making==== An EKG was performed per protocol showing atrial fibrillation with a rate of 85. Normal ST segments. This is unchanged from prior EKGs. He did not require any additional testing. I did a close exam which showed that this was a drug reaction and I do not think he needs to be started on the Keflex. He only got a couple doses overnight. He will continue the spironolactone and wait for the drug rash to resolve. I spoke with Dr. Tolentino to assure that he understood the plan and asked him to see the patient in close follow-up. All the patient's questions were answered. He felt comfortable with the plan. Portions of this note were dictated by speech recognition. An attempt at proof reading was made to minimize errors. Minor errors in business intelligence director may be present. Please call if questions.. HISTORY OF PRESENTING ILLNESS SCARLETT is a 85 year old Male and was seen by me at 08-Jun-2020 16:48 for a chief complaint of shortness of breath (Shortness of Breath for over one week was d/c'd here on 06/02 on levaquin, today patient seen primary care provider and has gained 25 lbs since dc, is Shortness of Breath, has bilateral +4 bilateral lower leg edema that extends to groin area, distened abdomen, and has a rash bilaterally on his legs and abdomen, levoquin completed, started on keflex and spirolactone last night by primary care provider, patient denies chest pain, and reports some Shortness of Breath, sp02 on arrival 98%)(1). Triage Information: Most recent Vital Sign Value Date Temp (F): 99 06-08-2020 16:48 Temp (C): 37.2 06-08-2020 16:48 Heart Rate (beats/min): 79 06-08-2020 16:48 Respirations (breaths/min): 18 06-08-2020 16:48 SpO2 (%): 98 06-08-2020 16:48 BP Systolic (mm Hg): 109 06-08-2020 16:48 BP Diastolic (mm Hg): 85 06-08-2020 16:48 PAST MEDICAL HISTORY ATTESTATION: I have reviewed and confirmed nurse's/medic's notes for patient's medications, allergies, medical history, and surgical history ALLERGIES/INTOLERANCES: No Known Allergies HEALTH HISTORY: No documented data. OUTPATIENT MEDICATIONS: Home Medications Review Status for Reconciliation: Complete Med Status: Patient Currently Takes Medications Drug Name: Vitamin D3 1000 intl units (25 mcg) oral tablet Instructions: 1 tab(s) orally once a day Drug Name: CoQ10 300 mg oral capsule Instructions: 1 cap(s) orally once a day Drug Name: PreserVision AREDS 2 oral capsule Instructions: 1 cap(s) orally once a day Drug Name: lisinopril 10 mg oral tablet Instructions: 1 tab(s) orally once a day Drug Name: amlodipine 5 mg tablet Instructions: 1 tab(s) orally once a day Drug Name: cephalexin 500 mg capsule Instructions: 1 cap(s) orally 4 times a day Drug Name: spironolactone 50 mg tablet Instructions: 1 tab(s) orally once a day Drug Name: aspirin 81 mg oral delayed release tablet Instructions: 1 tab(s) orally once a day (at bedtime) Drug Name: atorvastatin 20 mg tablet Instructions: 1 tab(s) orally once a day (at bedtime) Drug Name: finasteride 5 mg tablet Instructions: 1 tab(s) orally once a day (at bedtime) Drug Name: Saw Boswell oral capsule Instructions: 1 cap(s) orally once a day (at bedtime) SIGNIFICANT EVENTS: Past Medical History Description:HYPERTENSION/ CHOLESTEROLEMIA Past Surgical History Description:PROSTATE CLINICAL IMPRESSION Diagnosis/Annotation: ED Dx Name:Fluid overload Code:E87.70 Name:Drug rash Code:L27.0 Disposition: discharged ATTESTATION CRITICAL CARE TIME Is this a critically ill patient: no Electronic Signatures: Elijah Buckley) (Signed 08-Jun-2020 17:47) Authored: ED Notes, HPI, PMH, Clinical Impression, Attestation, Chart Review, Scores Last Updated: 08-Jun-2020 17:47 by Elijah Buckley) References: 1. Data Referenced From Triage - ED 08-Jun-2020 16:48 [facility] Risk Screen - Adult Emergenc yon 06-08-2020 Risk Screen - Adult Emergency Preferred Language: Preferred Language: Preferred Language for Discussing Health Care (patient/designee)Romansh Advanced Directives: Advance Directive/DNRno Family Violence Adult: Abuse Screen: Are you or have you been threatened or abused physically, emotionally, or sexually by anyoneno Learning Assessment (Patient): Learning Assessment (Patient): Patient is Able to be Assessed for Learningyes Factors Influencing Readiness to Learninterest in learning Factors that Impact Ability to Learnnone Devices/Methods Used to Communicatenone Learning Preferencesverbal instruction Cultural Considerationsnone Developmental Considerationsnone Roman Catholic Considerationsnone Learning Assessment (Other Learner): Learning Assessment (Other Learner): Other learner availableno Pressure Injury/TB/Substance: Pressure Injury: Pressure Injury Present on Admissionno Do you have a coughno Substance Use Current or Former Historynever: Cigarette/Tobacco, e-Cigarette/Vaping, Alcohol, Street Drugs Admission Risk Screen: Significant IndicatorsComplete CAGE: CAGE: [place] [place]heryl/Shawna/Patrick/Marysol Bustamante/Michael): no Electronic Signatures: Christina Venegas (RN) (Signed 08-Jun-2020 16:56) Authored: Preferred Language, Advanced Directives, Family Violence Adult, Learning Assessment (Patient), Learning Assessment (Other Learner), Pressure Injury/TB/Substance, Pressure Injury, CAGE Last Updated: 08-Jun-2020 16:56 by Christina Venegas (RN) [facility] Triage - EDon 06-08-2020 Triage - ED Quick Triage: The patient and/or guardian verbally acknowledges placement for services into the following (when Urgent Care Service hours are operating):emergency department Chart Review: ARRIVAL INFORMATION Mode of Arrival: private vehicle CHIEF COMPLAINT SCARLETT STEVENS is a Male patient with a chief complaint of shortness of breath (Shortness of Breath for over one week was d/c'd here on 06/02 on levaquin, today patient seen primary care provider and has gained 25 lbs since dc, is Shortness of Breath, has bilateral +4 bilateral lower leg edema that extends to groin area, distened abdomen, and has a rash bilaterally on his legs and abdomen, levoquin completed, started on keflex and spirolactone last night by primary care provider, patient denies chest pain, and reports some Shortness of Breath, sp02 on arrival 98%). Onset of the Complaint: 07-Jun-2020 Triage Date/Time: 08-Jun-2020 16:48 Pain Rating (0-10): 0 = None Vital Signs: Temperature: 99.0F ( 37.2C) taken oral Blood Pressure: 109/85 Mean: Heart Rate: 79 Respiratory Rate: 18 Pulse Oximetry: 98% on room air, no respiratory support. Height: 5 feet 10.00 inches. 177.8 CM Weight: 297.6 pounds. Calculated 135.0 kg. Calculated BMI (kg/m2): 42.704 Calculated BSA (m2) 2.58 Avelino Coma Scale: Best Eye Response: (E4) spontaneous Best Verbal Response: (V5) oriented Cough lasting greater than 3 weeks: no Allergies: no Mask applied: yes Patient has homicidal thoughts: no SALVATORE: 2 Symptoms Are POSITIVE For: dyspnea. Symptoms Are Negative For: body aches, chest pain, chills, congestion, cough, diaphoresis, fever, headache and malaise. Risk Screens Suicide Risk Screen In the Past Month: Have you wished you were or wished you could go to sleep and not wake up no In the Past Month: Have you had any actual thoughts of killing yourself no In Your Lifetime: Have you ever done anything, started to do anything, or prepared to do anything to end your life no Lawson Fall Scale Screening Has the patient fallen before (or is the patient in the ED as a result of a fall) has not had a fall Does the patient have an impaired gait does not have impaired gait Is the patient cognitively impaired not cognitively impaired Interventions: Lawson Fall Interventions: LOW INTERVENTIONS: *patient oriented to surroundings and call system, * patient/family falls education completed and documented, *patients fall status communicated during bedside handoff, *whiteboard updated, *mode of toileting discussed with patient, *bed in low position with brakes locked, *call light in reach, * non-skid footwear TRAVEL HISTORY Travel History Coronavirus Screening: no exposure or symptoms PAIN Pain Scale Used: JOE Pain Rating (0-10): 0 = None Past Medical History: Past Medical History Reviewedyes Electronic Signatures: Christina Venegas (TANMAY) (Signed 08-Jun-2020 16:55) Authored: Quick Triage, Risk Screens, Pain, Chart Review, Scores, Past Medical History Last Updated: 08-Jun-2020 16:55 by Christina Venegas (RN) [facility] Narrative Note - Outpatient- Respiratory Therapyon 06-07-2020 Narrative Note - Outpatient-Respira tory Therapy Narrative Note: Discipline/ClinicRespirato ry Therapy Description A 48hr COPD f/u call was made. Pt. breathing is doing a lot better today, pt. is not as short winded as he was. Pt. is having issues with redness and swelling in his legs, Pt. spoke with a nurse from [facility] on a f/u call about his legs. Pt. has a f/u apt. with family doctor on . No tx. were given to pt. upon discharge. Pt. was encouraged to ask family DrSilas for a reason for his SOB is it more from CHF Or COPD. I encouraged Pt. to give me a call back with any questions or concerns he may have about COPD. A 2 wk f/u call will be made. Electronic Signatures: Sherri Martines (SOFTWARE TOOLS ENGINEER (RESPIRATORY)) (Signed 07-Jun-2020 08:49) Authored: Narrative Note - OP Last Updated: 07-Jun-2020 08:49 by Sherri Martines (SOFTWARE TOOLS ENGINEER (RESPIRATORY)) [facility] BASIC METABOLIC PANELon 11- Anion gap [Moles/Vol] 10 mmol/L Normal - 20 [facility] Comment on above: Performed By: #### B MP #### [address] [address] Calcium [Mass/Vol] 8.8 mg/dL Normal 8.6 - 10.3 [facility] Comment on above: Performed By: #### B MP #### [address] [address] Chloride [Moles/Vol] 99 mmol/L Normal 98 - 107 [facility] Comment on above: Performed By: #### B MP #### [address] [address] Creatinine [Mass/Vol] 0.75 mg/dL Normal 0.50 - 1.30 [facility] Comment on above: Performed By: #### B MP #### [address] [address] GFR- AM. >60 Normal >60 [facility] Comment on above: Result Comment: CALC ULATIONS OF ESTIMATED GFR ARE PERFORMED USING THE MDRD STUDY EQUATION FOR THE IDMS-TRACEABLE CREATININE METHODS. CLIN CHEM 2007;53:766-72 Performed By: #### B MP #### [address] [address] GFR-NON AM. >60 Normal >60 [facility] Comment on above: Performed By: #### B MP #### [address] [address] Glucose [Mass/Vol] 111 mg/dL High 74 - 99 [facility] Comment on above: Performed By: #### B MP #### [address] [address] HCO3 (Bld) [Moles/Vol] 28 mmol/L Normal 21 - 32 [facility] Comment on above: Performed By: #### B MP #### [address] [address] Potassium [Moles/Vol] 3.5 mmol/L Normal 3.5 - 5.3 [facility] Comment on above: Performed By: #### B MP #### [address] [address] Sodium [Moles/Vol] 133 mmol/L Low 136 - 145 [facility] Comment on above: Performed By: #### B MP #### [address] [address] Urea nitrogen [Mass/Vol] 13 mg/dL Normal 6 - 23 [facility] Comment on above: Performed By: #### B MP #### [address] [address] BASIC METABOLIC PANELon 11- Anion gap [Moles/Vol] 14 mmol/L Normal 10 - 20 [facility] Comment on above: Performed By: #### B MP #### [place] [id number] Calcium [Mass/Vol] 8.8 mg/dL Normal 8.6 - 10.3 [facility] Comment on above: Performed By: #### B MP #### [place] [id number] Chloride [Moles/Vol] 93 mmol/L Low 98 - 107 [facility] Comment on above: Performed By: #### B MP #### [address] [address] Creatinine [Mass/Vol] 0.71 mg/dL Normal 0.50 - 1.30 [facility] Comment on above: Performed By: #### B MP #### [address] [address] GFR- AM. >60 Normal >60 [facility] Comment on above: Result Comment: CALC ULATIONS OF ESTIMATED GFR ARE PERFORMED USING THE MDRD STUDY EQUATION FOR THE IDMS-TRACEABLE CREATININE METHODS. CLIN CHEM 2007;53:766-72 Performed By: #### B MP #### [address] [address] GFR-NON AM. >60 Normal >60 [facility] Comment on above: Performed By: #### B MP #### [address] [address] Glucose [Mass/Vol] 118 mg/dL High 74 - 99 [facility] Comment on above: Performed By: #### B MP #### [address] [address] HCO3 (Bld) [Moles/Vol] 23 mmol/L Normal 21 - 32 [facility] Comment on above: Performed By: #### B MP #### [address] [address] Potassium [Moles/Vol] 3.5 mmol/L Normal 3.5 - 5.3 [facility] Comment on above: Performed By: #### B MP #### [address] [address] Sodium [Moles/Vol] 126 mmol/L Low 136 - 145 [facility] Comment on above: Performed By: #### B MP #### [place] [id number] Urea nitrogen [Mass/Vol] 17 mg/dL Normal 6 - 23 [facility] Comment on above: Performed By: #### B MP #### [address] [address] CBCon 06-02-2020 Erythrocyte distribution width (RBC) [Ratio] 13.3 % Normal 11.5 - 14.5 [facility] Comment on above: Performed By: #### C BC ####[address] [address] Hematocrit (Bld) [Volume fraction] 34.5 % Low 41.0 - 52.0 [facility] Comment on above: Performed By: #### C BC ####[address] [address] Hemoglobin (Bld) [Mass/Vol] 11.6 g/dL Low 13.5 - 17.5 [facility] Comment on above: Performed By: #### C BC ####[address] [address] MCHC (RBC) [Mass/Vol] 33.5 g/dL Normal 32.0 - 36.0 [facility] Comment on above: Performed By: #### C BC ####[place] [id number] MCV (RBC) [Entitic vol] 90 fL Normal 80 - 100 [facility] Comment on above: Performed By: #### C BC ####[address] [address] Platelets (Bld) [#/Vol] 261 10*3/uL Normal 150 - 450 [facility] Comment on above: Performed By: #### C BC ####[address] [address] RBC (Bld) [#/Vol] 3.84 x10E12/L Low 4.50 - 5.90 [facility] Comment on above: Performed By: #### C BC ####[address] [address] WBC (Bld) [#/Vol] 11.6 10*3/uL High 4.4 - 11.3 [facility] Comment on above: Performed By: #### C BC ####[address] [address] Discharge [id number] Discharge Profile2 Discharge Orders: Anticipated Discharge Date: Anticipated Discharge [id number] Anticipated Discharge Time10:01 Activity: activity as tolerated. May shower. Diet: Dietlow fat Additional Orders: Additional Instructions repeat BMP on 06/04 Provider FINAL REVIEW of Orders: Final Review: Final Review of Medication Reconciliation and Orders Completedby Physician Reviewing ProviderMalcom Black MD at 02-Jun-2020 10:07:17 Appointments: Follow-Up Appointment 01: Physician/Dept/Lexx Paulino Reason for ReferralHospital Follow-up Call to Schedule in1 week [id number] [place] [address] Phone [phone] CommentsYou will receive a call regarding date and time of appt. Electronic Signatures: Sera Armenta (UNIT SECT) (Signed 02-Jun-2020 10:55) Authored: Appointments Susan Llanes (RN) (Signed 02-Jun-2020 11:07) Authored: Appointments Malcom Black) (Signed 02-Jun-2020 10:07) Authored: Discharge Orders, Provider FINAL REVIEW of Orders, Appointments, Gold Form - Delivery Department Supervisor Summary Last Updated: 02-Jun-2020 11:07 by Susan Llanes (RN) Normal [facility] BASIC METABOLIC PANELon 05-21 Anion gap [Moles/Vol] 15 mmol/L Normal 10 - 20 [facility] Comment on above: Performed By: #### B MP #### [address] [address] Calcium [Mass/Vol] 8.8 mg/dL Normal 8.6 - 10.3 [facility] Comment on above: Performed By: #### B MP #### [address] [address] Chloride [Moles/Vol] 92 mmol/L Low 98 - 107 [facility] Comment on above: Performed By: #### B MP #### [address] [address] Creatinine [Mass/Vol] 0.77 mg/dL Normal 0.50 - 1.30 [facility] Comment on above: Performed By: #### B MP #### [address] [address] GFR- AM. >60 Normal >60 [facility] Comment on above: Result Comment: CALC ULATIONS OF ESTIMATED GFR ARE PERFORMED USING THE MDRD STUDY EQUATION FOR THE IDMS-TRACEABLE CREATININE METHODS. CLIN CHEM 2007;53:766-72 Performed By: #### B MP #### [address] [address] GFR-NON AM. >60 Normal >60 [facility] Comment on above: Performed By: #### B MP #### [address] [address] Glucose [Mass/Vol] 121 mg/dL High 74 - 99 [facility] Comment on above: Performed By: #### B MP #### [address] [address] HCO3 (Bld) [Moles/Vol] 23 mmol/L Normal 21 - 32 [facility] Comment on above: Performed By: #### B MP #### [address] [address] Potassium [Moles/Vol] 3.6 mmol/L Normal 3.5 - 5.3 [facility] Comment on above: Performed By: #### B MP #### [address] [address] Sodium [Moles/Vol] 126 mmol/L Low 136 - 145 [facility] Comment on above: Performed By: #### B MP #### [address] [address] Urea nitrogen [Mass/Vol] 23 mg/dL Normal 6 - 23 [facility] Comment on above: Performed By: #### B MP #### [address] [address] CBCon 06-01-2020 Erythrocyte distribution width (RBC) [Ratio] 13.3 % Normal 11.5 - 14.5 [facility] Comment on above: Performed By: #### B MP #### [place] [id number] Hematocrit (Bld) [Volume fraction] 33.3 % Low 41.0 - 52.0 [facility] Comment on above: Performed By: #### B MP #### [address] [address] Hemoglobin (Bld) [Mass/Vol] 11.5 g/dL Low 13.5 - 17.5 [facility] Comment on above: Performed By: #### B MP #### [address] [address] MCHC (RBC) [Mass/Vol] 34.6 g/dL Normal 32.0 - 36.0 [facility] Comment on above: Performed By: #### B MP #### [address] [address] MCV (RBC) [Entitic vol] 89 fL Normal 80 - 100 [facility] Comment on above: Performed By: #### B MP #### [address] [address] Platelets (Bld) [#/Vol] 232 10*3/uL Normal 150 - 450 [facility] Comment on above: Performed By: #### B MP #### [address] [address] RBC (Bld) [#/Vol] 3.74 x10E12/L Low 4.50 - 5.90 [facility] Comment on above: Performed By: #### B MP #### [address] [address] WBC (Bld) [#/Vol] 16.9 10*3/uL High 4.4 - 11.3 [facility] Comment on above: Performed By: #### B MP #### [address] [address] Daily Progress Note-General Internal Medicineon 06-01-2020 Daily Progress Note-General Internal Medicine Service: General Internal Medicine Subjective Data: SCARLETT STEVENS is a 85 year old Male who is Hospital Day # 3. Patient seen and examined. He is eager to go home, denies any fever, chills, chest pain, nausea, vomiting. Still feels a little short of breath. Objective Data: Objective Information: T PRBPSpO2 [id number]/7493% Date/Time06/01 0: 0: 0: 0: 0:30 Range(36.4C - 36.9C ) (77 - 77 ) (18 - 20 ) (123 - 143 )/ (74 - 78 ) (93% - 95% ) Highest temp of 36.9 C was recorded at 06/01 0:30 Pain reported at 05/31 20:00: 0 = None Physical Exam by System: Constitutional: Morbidly obese, mild respiratory distress Eyes: His pupils were equal, round, and reactive to light and subconjunctival were injected ENMT: He had a crowded oropharynx with no pharyngeal lesions. He had an upper partial dental device Head/Neck: His head was atraumatic and his neck was supple with no thyromegaly. He did have an increased neck circumference Respiratory/Thorax: No wheezing or rales, decreased breathing sounds at bilateral bases Cardiovascular: Regular rhythm with a controlled rate and no murmurs or gallops. He had 2+ pitting edema from the lateral thighs with 3+ pitting edema in the pretibial areas bilaterally Gastrointestinal: Morbidly obese but soft and nontender with normal bowel sounds Musculoskeletal: No major joint deformities or overlying erythema Extremities: No cyanosis or clubbing Neurological: He was alert and oriented x3 with no focal motor weakness. He was able to pull himself up to the sitting position with assistance Lymphatic: No palpable lymphadenopathy in the neck or supraclavicular area Psychological: Normal affect and mood Skin: He had chronic venous stasis changes in the pretibial areas bilaterally with intact skin and no erythema. He did have hyperpigmented skin changes Medication: Medications: Continuous Medications ------ No continuous medications are active Scheduled Medications ------ 1. Albuterol 2.5mg - Ipratropium 0.5 mg/ 3mL Neb Soln: 3 mL Inhalation Every 6 Hours 2. amLODIPine (NORVASC): 5 mg Oral Daily 3. Aspirin Enteric Coated: 81 mg Oral Daily 4. Atorvastatin: 20 mg Oral Daily 5. Cholecalciferol (Vitamin D3): 1000 International Unit(s) Oral Daily 6. Enoxaparin SubCutaneous: 40 mg SubCutaneous Every 24 Hours 7. Finasteride: 5 mg Oral Daily 8. levoFLOXacin (LEVAQUIN) 500 mg IVPB/ Premixed Soln 100 mL: 100 mL IntraVenous Piggyback Every 24 Hours 9. Lisinopril: 10 mg Oral Daily PRN Medications ------ 1. Acetaminophen: 650 mg Oral Every 4 Hours 2. Acetaminophen: 650 mg Oral Every 4 Hours 3. Magnesium Hydroxide -Al Hydrox -Simethicone Oral Liquid: 30 mL Oral Every 6 Hours 4. Magnesium Hydroxide Oral Liquid CONCENTRATE: 10 mL Oral Every 24 Hours 5. Ondansetron Injectable: 4 mg IntraVenous Push Every 4 Hours Currently Suspended Medications ------ 1. Furosemide Injectable: 40 mg IntraVenous Push Daily Recent Lab Results: Results: CBC: 06/01/2020 05:12 \ Hgb / \ 11.5 L / WBC Plt 16.9 H 232 / Hct \ / 33.3 L \ RBC: 3.74 L MCV: 89 BMP: 06/01/2020 05:11 NA+ Cl- BUN / 126 L 92 L 23 / ------ Glucose - 121 H K+ HCO3- Creat \ 3.6 23 0.77 \ Calcium : 8.8 Anion Gap : 15 Assessment and Plan: Code Status: Code StatusFull Code Assessment: 85-year-old with acute dyspnea complicated by hypoxemia in the setting of an acute respiratory alkalosis with obesity and untreated sleep apnea, anasarca, chronic hypertension, and hyperlipidemia. His sodium continues to go down slightly I'll stop his IV Lasix today Recheck sodium tomorrow Although he did not have any fever His white cell count did go up I'll put him on prophylactic Levaquin Continue nebulizer breathing treatments, respiratory support Incentive spirometry I counseled him regarding weight loss He will benefit from sleep apnea testing as an outpatient Continue amlodipine, aspirin, statin Continue to hold HCTZ DVT prophylaxis CODE STATUS is full Anticipating discharge tomorrow Electronic Signatures: Malcom Black) (Signed 01-Jun-2020 10:54) Authored: Service, Subjective Data, Objective Data, Assessment and Plan, Note Completion Last Updated: 01-Jun-2020 10:54 by Malcom Black) [facility] Narrative Note - Outpatient- Respiratory Therapyon 06-01-2020 Narrative Note - Outpatient-Respira tory Therapy Narrative Note: Discipline/ClinicRespirato ry Therapy Description Pt. was seen today for a COPD Assessment. Pt. sees Dr. Ruiz as his PCP. Pt. does not see a back tender fourdrinier for his breathing. Pt. has not a had PFT in the past Pt. has never been diagnosed in the past. pt and state we were only told in the ER it could BE COPD or heart . Pt. 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 Pt. does get SOB with his Daily activities, and at times this SOB does interferer with what he can do at times. Pt. feels ok today he is coughing and getting a lot up, and winded today especially while talking. Pt. does not take any breathing medications at home, or wear any home 02. Pt. does have a request to be able to get some breathing tx. at home to help him with his breathing. Pt. feels the breathing tx. here have helped him greatly. I did talk with pt. and about speaking with PCP about getting a pulmonary function test once pt. is discharged. I explained to them how the test would show if the pt. has any restrictions or obstructions in his lungs. I discussed with the pt, and his what COPD and how it affects the lungs. I also spoke with pt. regarding the dyspnea cycle and how to break that using pursed lip breathing. The pt. was unable to watch the TableApp video due to the internet being down. Pt. was given the living well with COPD book along with my contact information for any questions they may have. CAT- 21 Stop Bang- High risk, I will send copy to pt. requesting Pt. been seen in the sleep clinic. A 48hr D/c call will be made. Electronic Signatures: Sherri Martines (SOFTWARE TOOLS ENGINEER (RESPIRATORY)) (Signed 01-Jun-2020 14:30) Authored: Narrative Note - OP Last Updated: 01-Jun-2020 14:30 by Sherri Martines (SOFTWARE TOOLS ENGINEER (RESPIRATORY)) Normal [facility] BASIC METABOLIC PANELon 11-1 Anion gap [Moles/Vol] 13 mmol/L Normal 10 - 20 [facility] Comment on above: Performed By: #### B MP #### [address] [address] Calcium [Mass/Vol] 8.8 mg/dL Normal 8.6 - 10.3 [facility] Comment on above: Performed By: #### B MP #### [address] [address] Chloride [Moles/Vol] 95 mmol/L Low 98 - 107 [facility] Comment on above: Performed By: #### B MP #### [address] [address] Creatinine [Mass/Vol] 0.74 mg/dL Normal 0.50 - 1.30 [facility] Comment on above: Performed By: #### B MP #### [address] [address] GFR- AM. >60 Normal >60 [facility] Comment on above: Result Comment: CALC ULATIONS OF ESTIMATED GFR ARE PERFORMED USING THE MDRD STUDY EQUATION FOR THE IDMS-TRACEABLE CREATININE METHODS. CLIN CHEM 2007;53:766-72 Performed By: #### B MP #### [address] [address] GFR-NON AM. >60 Normal >60 [facility] Comment on above: Performed By: #### B MP #### [address] [address] Glucose [Mass/Vol] 176 mg/dL High 74 - 99 [facility] Comment on above: Performed By: #### B MP #### [address] [address] HCO3 (Bld) [Moles/Vol] 23 mmol/L Normal 21 - 32 [facility] Comment on above: Performed By: #### B MP #### [address] [address] Potassium [Moles/Vol] 3.7 mmol/L Normal 3.5 - 5.3 [facility] Comment on above: Performed By: #### B MP #### [address] [address] Sodium [Moles/Vol] 127 mmol/L Low 136 - 145 [facility] Comment on above: Performed By: #### B MP #### [address] [address] Urea nitrogen [Mass/Vol] 16 mg/dL Normal 6 - 23 [facility] Comment on above: Performed By: #### B MP #### [facility] [address] [place] [address] CT CHEST W CONTRASTon 2019 CT CHEST W CONTRAST Patient Name: SCARLETT STEVENS STUDY: CT CHEST W CONTRAST; 05/31/2020 8:18 am INDICATION: Dyspnea and wheezing in a non-smoker with asbestos exposure. COMPARISON: No available comparisons. ACCESSION NUMBER(S): [id number] ORDERING CLINICIAN: MALGORZATA HADLEY TECHNIQUE: CT of the chest was performed with IV contrast. 90 mL of Optiray was administered intravenously. Coronal and sagittal reformatted images were obtained. FINDINGS: SUPPORT DEVICES: None. CHEST WALL AND LOWER NECK: No supraclavicular or axillary lymphadenopathy by CT size criteria. MEDIASTINUM AND NATALIE: No lymphadenopathy by CT size criteria. VESSELS: The thoracic aorta and main pulmonary artery are normal in caliber. Moderate atherosclerotic calcifications of the coronary arteries. HEART: The heart size is normal. No pericardial effusion. LUNG, PLEURA, LARGE AIRWAYS: Small bilateral pleural effusions. Bilateral lower lobe compressive segmental atelectasis. UPPER ABDOMEN: Small hiatal hernia. BONES: No aggressive osseous lesions. IMPRESSION: 1. Small bilateral pleural effusions. 2. Bilateral lower lobe compressive segmental atelectasis. 3. Moderate atherosclerotic calcifications of the coronary arteries. 4. Small hiatal hernia. Electronically signed by: BELLO HERNANDEZ MD [facility] Daily Progress Note-General Internal Medicineon 05-31-2020 Daily Progress Note-General Internal Medicine Service: General Internal Medicine Subjective Data: SCARLETT STEVENS is a 85 year old Male who is Hospital Day # 2. Patient seen and examined. He is feeling much better, reports significant improvement in breathing. No nausea, vomiting, fever or chills. Objective Data: Objective Information: T PRBPSpO2 [id number]/8893% Date/Time05/31 8: 8: 8: 8: 8:21 Range(36.2C - 36.4C ) (72 - 79 ) (18 - 24 ) (97 - 149 )/ (66 - 88 ) (93% - 99% ) As of 30-May-2020 20:20:00, patient is on 2 L/min of oxygen via nasal cannula. Pain reported at 05/30 20:20: 0 = None Physical Exam by System: Constitutional: Morbidly obese, mild respiratory distress Eyes: His pupils were equal, round, and reactive to light and subconjunctival were injected ENMT: He had a crowded oropharynx with no pharyngeal lesions. He had an upper partial dental device Head/Neck: His head was atraumatic and his neck was supple with no thyromegaly. He did have an increased neck circumference Respiratory/Thorax: No wheezing or rales, decreased breathing sounds at bilateral bases Cardiovascular: Regular rhythm with a controlled rate and no murmurs or gallops. He had 2+ pitting edema from the lateral thighs with 3+ pitting edema in the pretibial areas bilaterally Gastrointestinal: Morbidly obese but soft and nontender with normal bowel sounds Musculoskeletal: No major joint deformities or overlying erythema Extremities: No cyanosis or clubbing Neurological: He was alert and oriented x3 with no focal motor weakness. He was able to pull himself up to the sitting position with assistance Lymphatic: No palpable lymphadenopathy in the neck or supraclavicular area Psychological: Normal affect and mood Skin: He had chronic venous stasis changes in the pretibial areas bilaterally with intact skin and no erythema. He did have hyperpigmented skin changes Medication: Medications: Continuous Medications ------ No continuous medications are active Scheduled Medications ------ 1. Albuterol 2.5mg - Ipratropium 0.5 mg/ 3mL Neb Soln: 3 mL Inhalation Every 6 Hours 2. amLODIPine (NORVASC): 5 mg Oral Daily 3. Aspirin Enteric Coated: 81 mg Oral Daily 4. Atorvastatin: 20 mg Oral Daily 5. Cholecalciferol (Vitamin D3): 1000 International Unit(s) Oral Daily 6. Enoxaparin SubCutaneous: 40 mg SubCutaneous Every 24 Hours 7. Finasteride: 5 mg Oral Daily 8. Furosemide Injectable: 40 mg IntraVenous Push Daily 9. Lisinopril: 10 mg Oral Daily PRN Medications ------ 1. Acetaminophen: 650 mg Oral Every 4 Hours 2. Acetaminophen: 650 mg Oral Every 4 Hours 3. Magnesium Hydroxide -Al Hydrox -Simethicone Oral Liquid: 30 mL Oral Every 6 Hours 4. Magnesium Hydroxide Oral Liquid CONCENTRATE: 10 mL Oral Every 24 Hours 5. Ondansetron Injectable: 4 mg IntraVenous Push Every 4 Hours Recent Lab Results: Results: CBC: 05/31/2020 05:20 \ Hgb / \ 11.8 L / WBC Plt / Hct \ BMP: 05/31/2020 05:20 NA+ Cl- BUN / 127 L 95 L 16 / ------ Glucose - 176 H K+ HCO3- Creat \ 3.7 23 0.74 \ Calcium : 8.8 Anion Gap : 13 Recent Arterial Blood Gas Results 05/30/2020 19:40 pO274 pH7.47 lNE772 SO297 Base Excess0.9 Pjeqrjemgiz21.0 Assessment and Plan: Code Status: Code StatusFull Code Assessment: 85-year-old with acute dyspnea complicated by hypoxemia in the setting of an acute respiratory alkalosis with obesity and untreated sleep apnea, anasarca, chronic hypertension, and hyperlipidemia. CT of the chest showed small bilateral pleural effusions with compression atelectasis 2-D echo showed a low normal EF with possible diastolic dysfunction I will continue with IV Lasix and continue with diuresis next and sodium dropped slightly, will continue to monitor Continue to hold HCTZ Will resume his lisinopril Counseled him regarding weight loss He will benefit from sleep apnea testing as an outpatient Hemoglobin has been stable Continue amlodipine Continue aspirin and statin DVT prophylaxis CODE STATUS is full Will put him on incentive spirometry as well Electronic Signatures: Malcom Black) (Signed 31-May-2020 11:24) Authored: Service, Subjective Data, Objective Data, Assessment and Plan, Note Completion Last Updated: 31-May-2020 11:24 by Malcom Black) [facility] Discharge Planning [id number] 1 07-31-2019 Discharge Planning Note2 Discharge Planning: Planned Dispositionhome Discharge DestinationHome AMPA < 20no Anticipated Discharge [id number] Discharge Planning Care Transitions Note: 05-31-[address] routine screen for d/c needs re: this [facility]/OI, 85yo, male Pt. SW met with Pt. SW introduced CT role in d/c planning. SW provided the Going Home Checklist and completed the assessment. Pt resides with in a single level home. Pt indicates he is independent with ADLs and IADLs. Pt has several wheelchairs, walkers, a cane, and electric scooter. Pt uses these as needed when he is feeling SOB. Pt does not have home O2 currently, and Pt is on room air now. Pt states his is supportive and his daughter lives in [place]. Pt's daughter checks in with Pt and as needed. Pt voiced no difficulty obtaining meds as prescribed. Pt intends to return home with his . Pt anticipates no home-going needs. Pt's AMPAC is 24--appropriate for home-going. SW encouraged Pt to contact CT should any needs arise. Plan: Pt home with when ready. PAUL Tan, ICT TEACHER Pharmacy Discharge Counseling 06/02/20 Discussed discharge medications with patient. Patient was given home medication summary and Dctio patient education handout for lisinopril and levofloxacin. Reviewed when next doses of medications are due based on home medication summary. Counseled patient on purpose, side effects, and how to take new medications. Informed patient that new RX's were sent to [facility]. Patients questions were answered and he and had a good understanding. Sherri Chapa PharmD, [facility] Discharge Note: 06/02/2020 1107 Discharge instructions and pt responsibilities reviewed with pt, pt , and copy given. Pneumonia, low fat diet education reviewed with pt and information sheets given. Pt verbalizes understanding of instructions received, verbalizes understanding of when to seek medical attention, denies any home going or personal care needs. Reviewed follow up appt with Dr. Paulino and notified will receive a call regarding date and time of follow up appt. Printed prescription for follow up lab work explained and given to pt. Familia data management associate Note: 06/02/2020 1237 Discharged via wheelchair to private car accompanied by PCT, personal belongings taken by patient, no distress noted, no complaints voiced. Familia quality process engineer: Discharge Planning Assessment [id number] Stated Reason for Admissioncouldn't breathe(1) [place] Lives Withspouse(1) Living Arrangementshouse(1) Resource/Environmental Concernsnone(1) [place] Services Anticipated at Transitionnon(1) Nursing Checklist: Lines/Cathetersremoved/sunita ropriate for next level of care Discharge Med Rec Reconciled with Maranda Patient has Prescriptionsyes Transportation for Discharge Confirmedyes Follow up Reviewedyes Discharge Instructions Reviewed WithPatient, Significant Other Discharge Instructions Outcomeverbalize recall/understanding Discharge Instructions Review Completed with Patient/Family (diet, activity, pt instructions)yes Discharge Documentation: Discharge/Transfer Date/[id number] 12:37 Discharge Modewheelchair Discharged Accompanied Byspouse Transportation Methodprivate car Valuables/Medications/Belo ngings Returnedyes Final DispositionHome Electronic Signatures: Sherri Chapa (RP) (Signed 02-Jun-2020 10:57) Authored: Discharge Planning Susan Llanes (RN) (Signed 02-Jun-2020 14:50) Authored: Discharge Planning, Nursing Checklist, Discharge Documentation Donna Guerrier (GENERAL AGENT) (Signed 31-May-2020 15:28) Authored: Discharge Planning, Assessment Last Updated: 02-Jun-2020 14:50 by Susan Llanes (RN) References: 1. Data Referenced From Patient Profile - Adult v2 30-May-2020 18:55 [facility] HGBon 05-31-2020 Hemoglobin (Bld) [Mass/Vol] 11.8 g/dL Low 13.5 - 17.5 [facility] Comment on above: Performed By: #### B MP #### [address] [address] ARTERIAL BLOOD GASon 020 APPARATUS Cannula Normal [facility] Comment on above: Performed By: #### B MP #### [place] [address] BASE EXCESS-BLOOD 0.9 mmol/L Normal -2.0 - 3.0 [facility] Comment on above: Performed By: #### B MP #### [place] [address] FIO2 28 % Normal [facility] Comment on above: Performed By: #### B MP #### [place] [address] Oxygen (Bld) [Partial pressure] 74 mm[Hg] Low 85 - 95 [facility] Comment on above: Performed By: #### B MP #### [place] [address] PCO2 33 mmHg Low 38 - 42 [facility] Comment on above: Performed By: #### B MP #### [place] [address] pH (Bld) 7.47 [pH] High 7.38 - 7.42 [facility] Comment on above: Performed By: #### B MP #### [place] [address] RBC (Bld) [#/Vol] 24.0 mmol/L Normal 22.0 - 26.0 [facility] Comment on above: Performed By: #### B MP #### [place] [address] SO2 97 % Normal 94 - 100 [facility] Comment on above: Performed By: #### B MP #### [place] [address] Admission Risk Screen - Adul ton 05-30-2020 Admission Risk Screen - Adult Allergies: Allergies: No Known Allergies: Patient Verification: New W ID Band Applied in my Departmentno Type of ID Patient is WearingW wristband, but not applied here Patient Transferred from Other Facility ([facility], Ursula Parlin,etc)no Patient Identity Verified Bypatient ID Band FULL Name, include Middle, spelling matches patient's ID used for verificationyes ID Band Matches Patient ID used for Verficationyes ID Band MRN Matches EMR MRNyes Visitor Restriction: Coronavirus Visitor Restriction: Reasonable restrictions to in-person visitors will be observed due to current coronavirus pandemic. Travel History: COVID-19 Screening Completedno exposure or symptoms Advance Directive: Advance Directive/DNRyes (1) Advance Directive typeLiving Will, Durable Power of Domestic Laundry Worker for Healthcare(1) Living Will AvailabilityLiving Will not available now Living Will [id number] Durable Power of Domestic Laundry Worker AvailabilityDPOA not available now Durable Power of Domestic Laundry Worker [id number] Durable Power of Domestic Laundry Worker contact (name and number)Osmany Stevens Advanced Directive Commentshould be on file [place] Fall Screen: History of falling (immediate or previous)no (0) Secondary Diagnosisyes (15) Intravenous Therapy/ Heparin/Saline Lockyes (20) Gait/Transferringnormal/be drest/wheelchair (0) Ambulatory Aidsnone/bedrest/nurse assist (0) Mental Statusoriented to own ability (0) Score: Low risk (<25). Moderate risk (25-44). High risk (>44).35 Lawson InterventionsMODERATE INTERVENTIONS: *Low Interventions Plus: * falls risk band/sticker applied to patient, *yellow non-skid footwear, *instruct to call for assistance before getting out of bed, *bed/chair/bedside commode/toilet alarms, *sensory devices/ambulatory aides available and in reach, *medications reviewed for potential side effects and care planning. Family Violence Screen: Are you or have you been threatened or abused physically, emotionally, or sexually by anyoneno Do you feel UNSAFE going back to the place where you are livingno Clinical assessment: Are there any apparent signs of injuries/behaviors that could be related to abuse/neglectno Social Service Consult for abuse/neglect needed this visitno Functional Screen: Functional Screen: In the recent/past 2-4 weeks, patient or family have noticedno issues that require a speech/language consult at this time AM-PAC- Basic Mobility/Daily Activity: Patient baseline bedboundno Turning from your back to your side while in a flat bed without using bedrailsnone Moving from lying on your back to sitting on the side of a flat bed without using bedrailsnone Moving to and from bed to chair (including a wheelchair)none Standing up from a chair using your arms (e.g. wheelchair or bedside chair) none To walk in hospital roomnone Climbing 3-5 steps with railingnone AM-PAC Basic Mobility- Total Score24 Putting on and taking off regular lower body clothingnone Bathing (including washing, rinsing, drying)none Putting on and taking off regular upper body clothingnone Toileting, which includes using toilet, bedpan or urinalnone Taking care of personal grooming such as brushing teethnone Eating Mealsnone AM-PAC Daily Activity- Total Score24 Learning Assessment (Patient): Patient is Able to be Assessed for Learningyes Factors Influencing Readiness to Learnacuteness of illness Factors that Impact Ability to Learnnone Devices/Methods Used to Communicateglasses, hearing aids Learning Preferencesverbal instruction Cultural Considerationsnone Developmental Considerationsnone Roman Catholic Considerationsnone Learning Assessment (Other Learner): Other learner availableno Depression Screen: During the past month, have you often been bothered by feeling down, depressed or hopelessno During the past month, have you often had little interest or pleasure in doing thingsno Have you had any thoughts of harming anyone elseno (2) [place] Suicide: Risk Screen Not Applicable/Able to Answerable to be screened In the Past Month: Have you wished you were or could go to sleep and not wake upno(2) In the Past Month: Have you had any actual thoughts of killing yourself no(2) Lifetime: Have you ever done, started to do, or prepared to do anything to end your lifeno [place] Suicide Risknegative Adult Nutrition Screen: Have you recently lost weight without tryingno Have you been eating poorly because of a decreased appetiteno Malnutrition Screening Tool Score0 Malnutrition Screening Tool RiskMST = 0 or 1 Not at risk. Eating well with little or no weight loss Nutrition Consult needed this visitno Can Patient Participate in Room Serviceyes Patient requires Paper Dishes/Plastic Utensilsno Pain Screen: Pain Scalenumerical 0-10 Pain Scale Educationteaching provided Current Pain Level0 = None Acceptable Pain Level5 = Moderate Expression of Pain (nonverbal)none Chronic Painno Spiritual Screen: Are there any cultural, spiritual, zoroastrian practices/values/needs that are important for us to knowno CAGE: Is this an injured patient at a Trauma Center (LENARD/Cheryl/Shawna/Patrick/Marysol Bustamante/Michael): no (1) Vaccinations: Vaccination - Influenza Vaccination Screen: Is it flu season (between and October 31)Yes Screening for identified contraindications to influenza vaccinationpatient already received vaccine this season Vaccination - Pneumonia Vaccination Screen: Patient has received a previous pneumonia vaccine:yes (given either at or after age 65) Leonard: Skin - Leonard Scale: Leonard: Sensory Perception (response to environment)(4) no impairment Leonard: Moisture (degree skin exposed to moisture)(3) occasionally moist Leonard: Activity (ability to walk)(3) walks occasionally Leonard: Mobility (amount/control of body movement)(4) no limitation Leonard: Nutrition (quality of food intake)(3) adequate Leonard: Friction and Shear(3) no apparent problem Leonard: Score20 Significant Indicatiors: Significant Indicators: Complete Pressure Injury: Pressure Injury Present on Admissionno Electronic Signatures: Lisa Shepherd (RN) (Signed 30-May-2020 19:05) Authored: Admission Risk Screens, Lawson Fall Screen, Vaccinations, Leonard, Pressure Injury Last Updated: 30-May-2020 19:05 by Lisa Shepherd (RN) References: 1. Data Referenced From Risk Screen - Adult Emergency 30-May-2020 10:52 2. Data Referenced From Triage - ED 30-May-2020 10:48 Normal [facility] BNPon 05-30-2020 Natriuretic peptide B (Bld) [Mass/Vol] 207 pg/mL High 0 - 99 [facility] Comment on above: Result Comment: . <1 00 pg/mL - Heart failure unlikely 100-299 pg/mL - Intermediate probability of acute heart . failure exacerbation. Correlate with clinical . context and patient history. >=300 pg/mL - Heart Failure likely. Correlate with clinical . context and patient history. BNP testing is performed using different testing methodology at [facility] than at other [facility]. Direct result comparisons should only be made within the same method. Performed By: #### B NP2 ####[address] [address] CBC AND DIFFERENTIALon 05-30 Basophils (Bld) [#/Vol] 0.10 10*3/uL Normal 0.00 - 0.10 [facility] Comment on above: Performed By: #### B MP #### [address] [place] [address] Basophils/100 WBC (Bld) 0.7 % Normal 0.0 - 2.0 [facility] Comment on above: Performed By: #### B MP #### [address] [address] Eosinophils (Bld) [#/Vol] 0.00 10*3/uL Normal 0.00 - 0.40 [facility] Comment on above: Performed By: #### B MP #### [address] [address] Eosinophils/100 WBC (Bld) 0.3 % Normal 0.0 - 6.0 [facility] Comment on above: Performed By: #### B MP #### [address] [address] Erythrocyte distribution width (RBC) [Ratio] 13.3 % Normal 11.5 - 14.5 [facility] Comment on above: Performed By: #### B MP #### [address] [address] Hematocrit (Bld) [Volume fraction] 38.0 % Low 41.0 - 52.0 [facility] Comment on above: Performed By: #### B MP #### [address] [address] Hemoglobin (Bld) [Mass/Vol] 12.8 g/dL Low 13.5 - 17.5 [facility] Comment on above: Performed By: #### B MP #### [address] [address] Lymphocytes (Bld) [#/Vol] 0.70 10*3/uL Low 0.80 - 3.00 [facility] Comment on above: Performed By: #### B MP #### [address] [address] Lymphocytes/100 WBC (Bld) 6.6 % Normal 13.0 - 44.0 [facility] Comment on above: Performed By: #### B MP #### [address] [address] MCHC (RBC) [Mass/Vol] 33.8 g/dL Normal 32.0 - 36.0 [facility] Comment on above: Performed By: #### B MP #### [address] [address] MCV (RBC) [Entitic vol] 90 fL Normal 80 - 100 [facility] Comment on above: Performed By: #### B MP #### [address] [address] Monocytes (Bld) [#/Vol] 1.10 10*3/uL High 0.05 - 0.80 [facility] Comment on above: Performed By: #### B MP #### [address] [address] Monocytes/100 WBC (Bld) 10.5 % Normal 2.0 - 10.0 [facility] Comment on above: Performed By: #### B MP #### [address] [address] Neutrophils (Bld) [#/Vol] 8.90 10*3/uL High 1.60 - 5.50 [facility] Comment on above: Result Comment: Perc ent differential counts (%) should be interpreted in the context of the absolute cell counts (cells/L). Performed By: #### B MP #### [address] [address] Neutrophils/100 WBC (Bld) 81.9 % Normal 40.0 - 80.0 [facility] Comment on above: Performed By: #### B MP #### [address] [address] Nucleated RBC/100 WBC (Bld) [Ratio] 0.6 /100 WBC Normal [facility] Comment on above: Performed By: #### B MP #### [address] [address] Platelets (Bld) [#/Vol] 257 10*3/uL Normal 150 - 450 [facility] Comment on above: Performed By: #### B MP #### [address] [address] RBC (Bld) [#/Vol] 4.23 x10E12/L Low 4.50 - 5.90 [facility] Comment on above: Performed By: #### B MP #### [address] [address] WBC (Bld) [#/Vol] 10.9 10*3/uL Normal 4.4 - 11.3 [facility] Comment on above: Performed By: #### B MP #### [place] [id number] CHEST 1 VIEWon 05-30-2020 CHEST 1 VIEW Patient Name: SCARLETT STEVENS STUDY: CHEST 1 VIEW; 05/30/2020 10:49 am INDICATION: chf. COMPARISON: None. ACCESSION NUMBER(S): [id number] ORDERING CLINICIAN: HONEY CHEN FINDINGS: A single AP portable radiograph of the chest was obtained. Artifact from overlying monitoring leads noted. Slight fluid or thickening of the right horizontal fissure. Subtle density of the left lower chest may be related to underpenetration. The cardiac silhouette is mildly enlarged. IMPRESSION: Mild cardiomegaly. Slight fluid or thickening in the right horizontal fissure. Electronically signed by: RUPERT FISHER MD Normal [facility] COMPREHENSIVE PANELon 2019 Albumin [Mass/Vol] 4.1 g/dL Normal 3.4 - 5.0 [facility] Comment on above: Performed By: #### C MP #### [place] [id number] ALP [Catalytic activity/Vol] 128 U/L Normal 33 - 136 [facility] Comment on above: Performed By: #### C MP #### [place] [id number] ALT [Catalytic activity/Vol] 19 U/L Normal 10 - 52 [facility] Comment on above: Result Comment: Latoya ents treated with Sulfasalazine may generate falsely decreased results for ALT. Performed By: #### C MP #### [place] [id number] Anion gap [Moles/Vol] 13 mmol/L Normal 10 - 20 [facility] Comment on above: Performed By: #### C MP #### [address] [address] AST [Catalytic activity/Vol] 24 U/L Normal 9 - 39 [facility] Comment on above: Performed By: #### C MP #### [address] [address] Bilirubin [Mass/Vol] 1.4 mg/dL High 0.0 - 1.2 [facility] Comment on above: Performed By: #### C MP #### [address] [address] Calcium [Mass/Vol] 9.1 mg/dL Normal 8.6 - 10.3 [facility] Comment on above: Performed By: #### C MP #### [address] [address] Chloride [Moles/Vol] 94 mmol/L Low 98 - 107 [facility] Comment on above: Performed By: #### C MP #### [address] [address] Creatinine [Mass/Vol] 0.68 mg/dL Normal 0.50 - 1.30 [facility] Comment on above: Performed By: #### C MP #### [address] [address] GFR- AM. >60 Normal >60 [facility] Comment on above: Result Comment: CALC ULATIONS OF ESTIMATED GFR ARE PERFORMED USING THE MDRD STUDY EQUATION FOR THE IDMS-TRACEABLE CREATININE METHODS. CLIN CHEM 2007;53:766-72 Performed By: #### C MP #### [address] [address] GFR-NON AM. >60 Normal >60 [facility] Comment on above: Performed By: #### C MP #### [address] [address] Glucose [Mass/Vol] 133 mg/dL High 74 - 99 [facility] Comment on above: Performed By: #### C MP #### [address] [address] HCO3 (Bld) [Moles/Vol] 25 mmol/L Normal 21 - 32 [facility] Comment on above: Performed By: #### C MP #### [address] [address] Potassium [Moles/Vol] 3.5 mmol/L Normal 3.5 - 5.3 [facility] Comment on above: Performed By: #### C MP #### [address] [address] Protein [Mass/Vol] 7.3 g/dL Normal 6.4 - 8.2 [facility] Comment on above: Performed By: #### C MP #### [address] [address] Sodium [Moles/Vol] 128 mmol/L Low 136 - 145 [facility] Comment on above: Performed By: #### C MP #### [address] [address] Urea nitrogen [Mass/Vol] 9 mg/dL Normal 6 - 23 [facility] Comment on above: Performed By: #### C MP #### [place] [id number] CORONAVIRUS 2019 BY PCRon CORONAVIRUS 2019,PCR NOT DETECTED Normal Not Detected [facility] Comment on above: Result Comment: . This assay is designed to detect the N2 and E genes of SARS-CoV-2 via nucleic acid amplification. A Not Detected result does not preclude COVID-19 infection since the adequacy of sample collection and/or low viral burden may result in presence of viral nucleic acids below the clinical sensitivity of this test method. Fact sheet for providers: www.fda.gov/media/761960/download Fact sheet for patients: www.fda.gov/media/713577/download This test has received FDA Emergency Use Authorization (EUA) and has been verified by [facility]. This test is only authorized for the duration of time that circumstances exist to justify the authorization of the emergency use of in vitro diagnostic tests for the detection of SARS-CoV-2 virus and/or diagnosis of COVID-19 infection under section 564(b)(1) of the Act, 21 U.S.C. 360bbb-3(b)(1), unless the authorization is terminated or revoked sooner. [facility] is certified under CLIA-88 as qualified to perform high complexity testing. Testing is performed in the [facility] laboratory located at [address] [place] [address]. Performed By: #### C OV19 #### [place] [address] Lab Specimen Source Nasal, Nasopharyngeal Normal [facility] Comment on above: Performed By: #### C OV19 #### [place] [address] DATE OF SYMPTOM ONSET [YYYYMMDD]? 20200530 Normal [facility] Comment on above: Performed By: #### C OV19 #### [place] [address] EMPLOYED IN HEALTHCARE? No Normal [facility] Comment on above: Performed By: #### C OV19 #### [place] [address] FIRST COVID NASAL SWAB TEST? Yes Normal [facility] Comment on above: Performed By: #### C OV19 #### [place] [address] HOSPITALIZED (OR PLANNED TO BE ADMITTED)? Yes Normal [facility] Comment on above: Performed By: #### C OV19 #### [place] [address] ICU? No Normal [facility] Comment on above: Performed By: #### C OV19 #### [place] [address] RESIDENT IN CONGREGATE CARE SETTING? No Normal [facility] Comment on above: Performed By: #### C OV19 #### [place] [address] SYMPTOMATIC DEFINED BY [facility]? Yes Normal [facility] Comment on above: Performed By: #### C OV19 #### [place] [address] CREATINE KINASEon 05-30-2020 CK [Catalytic activity/Vol] 155 U/L Normal 0 - 325 [facility] Comment on above: Performed By: #### B #### [facility] [address] [id number] History and Physicalon 05-30 History and Physical History of Present Illness: HPI: SCARLETT STEVENS is a 85 year old Male who presented to the emergency department with increasing shortness of breath and leg swelling. His symptoms have been present for at least the past many days and up to the past couple weeks. The patient's notes that she has been encouraging him to come to the emergency department because of his increasing shortness of breath but he declined to do so. It appears that the patient has been having problems with orthopnea, PND, increasing nocturia up to 3 times a night, and increased wheezing. He does not have much in the way of cough or productive sputum. He denies any fevers, chills, sweats, or headaches. He thinks that he has been having problems with increasing shortness of breath since a spider bite in January 2020. However, he has seen his primary care provider since that time and was not having this degree of difficulty with his breathing. The patient tends to start sleeping in bed but ends up in a chair because of his shortness of breath. He denies any chest pain or chest tightness. He does not report any history of coronary disease or known congestive heart failure. He does admit to dietary indiscretion. His legs have been swelling more lately. He is a lifetime non-smoker. He denies any hemoptysis. He did not try any [id number] medications. He thought about contacting his primary provider this morning but had difficulty doing so. As result, he presented to the emergency department for evaluation. In the emergency department, he was afebrile with a pulse in the 80s and a respiratory rate of 18-24. His initial blood pressure was 100/89 and he had a 92% saturation. His weight was documented at 125 kg. The patient was having significant difficulty with breathing on presentation and required noninvasive ventilation with BiPAP therapy. He was initially placed on 06/25. He was given a combination of supplemental oxygen, Lasix, and aerosols and had considerable improvement which allowed them to wean his oxygen to nasal cannula. His white blood cell count was in the 10,900 range with hemoglobin of 12.8 and a platelet count of 257,000. He did not have a left shift. His glucose was 133 with a sodium of 128 and potassium of 3.5. His chloride was 94 and his BUN was 9 with a creatinine of 0.68. His AST was 24 with an ALT of 19. His troponin level was initially 0.03 and on repeat was 0.02. His BNP was 207. Given the patient's clinical signs of acute hypoxemia and dyspnea requiring noninvasive ventilation for supportive measures, he was recommended for inpatient evaluation and management. Review of systems-10 systems were reviewed and were negative except for those noted in history of present illness. Past medical history-the patient has hypertension, hyperlipidemia, BPH status post surgical intervention, and vitamin D deficiency. He did have his left testicle removed because of a cyst on the testicle. He does have untreated sleep apnea. Social history-the patient lives independently with his . He has no current or previous alcohol or tobacco use. He has 2 children who live nearby who are routinely helpful. 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 His primary hobby was dragsters. Family history-the patient's mother at age 99 from complications of heart disease and his father at age 91 from complications of vascular disease with a stroke. Comorbidities: Comorbid Conditionshypertension Allergies: No Known Allergies: Medications Prior to Admission: lisinopril-hydrochlorothia zide 10 mg-12.5 mg oral tablet: 1 tab(s) orally once a day Lipitor 20 mg oral tablet: 1 tab(s) orally once a day amLODIPine 5 mg oral tablet: 1 tab(s) orally once a day finasteride 5 mg oral tablet: 1 tab(s) orally once a day aspirin 81 mg oral delayed release tablet: 1 tab(s) orally once a day Vitamin D3 1000 intl units (25 mcg) oral tablet: 1 tab(s) orally once a day CoQ10 300 mg oral capsule: 1 cap(s) orally once a day PreserVision AREDS 2 oral capsule: 1 cap(s) orally once a day Saw Boswell oral capsule: 1 cap(s) orally once a day. Objective: Objective Information: T PRBPSpO2 [id number]/7095% Date/Time05/30 10:4805/30 17: 17: 17: 17:35 Range(36.5C - 36.5C ) (74 - 86 ) (18 - 24 ) (97 - 122 )/ (66 - 89 ) (92% - 99% ) Pain reported at 05/30 16:15: 0 = None Physical Exam by System: Constitutional: Morbidly obese, in bed with tachypnea but no acute distress. He did require multiple breaths to complete full sentences Eyes: His pupils were equal, round, and reactive to light and subconjunctival were injected ENMT: He had a crowded oropharynx with no pharyngeal lesions. He had an upper partial dental device Head/Neck: His head was atraumatic and his neck was supple with no thyromegaly. He did have an increased neck circumference Respiratory/Thorax: He had bilateral forced expiratory airway sounds with wheezing and a high-pitched musical wheeze in the left lung base Cardiovascular: Regular rhythm with a controlled rate and no murmurs or gallops. He had 2+ pitting edema from the lateral thighs with 3+ pitting edema in the pretibial areas bilaterally Gastrointestinal: Morbidly obese but soft and nontender with normal bowel sounds Musculoskeletal: No major joint deformities or overlying erythema Extremities: No cyanosis or clubbing Neurological: He was alert and oriented x3 with no focal motor weakness. He was able to pull himself up to the sitting position with assistance Lymphatic: No palpable lymphadenopathy in the neck or supraclavicular area Psychological: Normal affect and mood Skin: He had chronic venous stasis changes in the pretibial areas bilaterally with intact skin and no erythema. He did have hyperpigmented skin changes Medications: Medications: Continuous Medications ------ No continuous medications are active Scheduled Medications ------ 1. Albuterol 2.5mg - Ipratropium 0.5 mg/ 3mL Neb Soln: 3 mL Inhalation Every 6 Hours 2. amLODIPine (NORVASC): 5 mg Oral Daily 3. Aspirin Enteric Coated: 81 mg Oral Daily 4. Atorvastatin: 20 mg Oral Daily 5. Cholecalciferol (Vitamin D3): 1000 International Unit(s) Oral Daily 6. Enoxaparin SubCutaneous: 40 mg SubCutaneous Every 24 Hours 7. Finasteride: 5 mg Oral Daily 8. Iopamidol 76% (ISOVUE 370) -Radiology Contrast): 150 mL IntraVenous Push Once PRN Medications ------ 1. Acetaminophen: 650 mg Oral Every 4 Hours 2. Acetaminophen: 650 mg Oral Every 4 Hours 3. Magnesium Hydroxide -Al Hydrox -Simethicone Oral Liquid: 30 mL Oral Every 6 Hours 4. Magnesium Hydroxide Oral Liquid CONCENTRATE: 10 mL Oral Every 24 Hours 5. Ondansetron Injectable: 4 mg IntraVenous Push Every 4 Hours Conditional Medication Orders ------ 1. Perflutren Lipid Microsphere (Activated) 1.3 mL / NaCL 0.9% T.V. 10 mL Injectable: 0.5 mL IntraVenous Push Once Recent Lab Results: Results: I have reviewed these laboratory results: Blood Gas, Arterial 30-May-2020 19:40:00 ResultValue pH, Arterial 7.47 H pCO2, Arterial 33 L pO2, Arterial 74 L FIO2 28 SO2, Arterial 97 Base Excess-Blood 0.9 Bicarbonate, Calculated, Arterial 24.0 Apparatus Cannula Troponin I, Serum Trending View [id number] 15:40:00 30-May-2020 11:06:00 Troponin I, Serum0.02 0.03 Coronavirus 2019 by PCR 30-May-2020 11:07:00 ResultValue Fluid Source Nasal, Nasopharyngeal Coronavirus 2019,PCR NOT DETECTED Reference Range: Not Detected . This assay is designed to detect the N2 and E genes of SARS-CoV-2 via nucleic acid amplification. A Not Detected result does not preclude COVID-19 infection since the adequacy of sample collection a First Covid Nasal Swab Test Yes Employed in Healthcare No Symptomatic as defined by CDC Yes Date of Symptom Onset 20200530 Hospitalized (or planned to be admitted) Yes ICU No Resident in congregate care setting No Complete Blood Count + Differential 30-May-2020 11:06:00 ResultValue White Blood Cell Count 10.9 Nucleated Erythrocyte Count 0.6 Red Blood Cell Count 4.23 L HGB 12.8 L HCT 38.0 L MCV 90 MCHC 33.8 PLT 257 RDW-CV 13.3 Neutrophil % 81.9 Lymphocyte % 6.6 Monocyte % 10.5 Eosinophil % 0.3 Basophil % 0.7 Neutrophil Count 8.90 H Lymphocyte Count 0.70 L Monocyte Count 1.10 H Eosinophil Count 0.00 Basophil Count 0.10 Comprehensive Metabolic Panel 30-May-2020 11:06:00 ResultValue Glucose, Serum 133 H NA 128 L K 3.5 CL 94 L Bicarbonate, Serum 25 Anion Gap, Serum 13 BUN 9 CREAT 0.68 GFR-Non >60 GFR- >60 Calcium, Serum 9.1 ALB 4.1 ALKP 128 T Pro 7.3 T Bili 1.4 H Alanine Aminotransferase, Serum 19 Aspartate Transaminase, Serum 24 Brain Natriuretic Peptide 30-May-2020 11:06:00 ResultValue Brain Natriuretic Peptide 207 H Creatine Kinase, Level 30-May-2020 11:06:00 ResultValue Creatine Kinase, Level 155 Assessment and Plan: Assessment: 85-year-old with acute dyspnea complicated by hypoxemia in the setting of an acute respiratory alkalosis with obesity and untreated sleep apnea, anasarca, chronic hypertension, and hyperlipidemia. - Given the patient's occupational exposure and wheezing, I will schedule him for a CT scan of the chest. - I will treat him with supplemental oxygen for his hypoxemia and dyspnea. - I will also use routine DuoNeb therapy given his wheezing-he is a lifetime non-smoker. - I will treat him with Lasix 40 mg IV daily with his marked volume overload and anasarca. - I will hold his HCTZ with his IV Lasix use-he can resume that at discharge. - I will hold his lisinopril with the plan for CT scan of the chest with contrast-his blood pressure is 115/70. - I will schedule him for an echocardiogram to assess for any structural heart issues with his anasarca. - The patient has classic signs and symptoms of sleep apnea-outpatient sleep testing would be appropriate. - I did schedule him for a blood gas which showed an acute respiratory alkalosis with hypoxemia. - I will monitor his BMP daily with his Lasix use and hyponatremia. - His hyponatremia likely relates to his routine HCTZ use and third spacing with anasarca. - I will monitor his hemoglobin-he does not have any signs of acute blood loss. - He will continue with his amlodipine for his chronic hypertension. - I will continue his aspirin and statin for his vascular risks (his LDL was 58 in June 2019). - I did recommend compression wraps with NAHOMI bandages for his peripheral edema. - He will use Lovenox and SCDs for DVT prophylaxis. - He is a full code. I did review the plan of care with the patient's at the bedside. The patient is appropriate for inpatient status with his acute hypoxemia and dyspnea. He will need diagnostic testing by both CT scan and echocardiogram to help determine his wheezing. His forced expiratory sounds contribute to his abnormal breath sounds. This is in part related to his obesity. He clearly has untreated sleep apnea. I will recommend a trial of nocturnal CPAP during this hospital stay. 75 minutes were spent the coordination of this patient's admission. Signatures/Attestation/Cer tification: Note Completion: Attending Provider Inpatient Certification StatementI certify this patients need for inpatient care based on the above documentation including; the order to admit as inpatient, the anticipated length of stay, diagnosis, problem list and plan of care, and discharge plan. Admission Order - View OnlyCurrent Admission Order. Admit to Inpatient Adult Community Admitting Diagnosis, R06.00 Dyspnea;E66.9 Obesity (BMI 30.0-34.9) , Attending Provider Malgorzata Hadley Level of Care, Med/Surg Malgorzata Hadley Admission Order Certification order has been placed by Malgorzata Hadley Electronic Signatures: Malgorzata Hadley) (Signed 30-May-2020 20:23) Authored: History of Present Illness, Comorbidities, Allergies, Medications Prior to Admission, Objective, Assessment and Plan, Note Completion Last Updated: 30-May-2020 20:23 by Malgorzata Hadley) [facility] Patient Profile - Adult v2on 05-30-2020 Patient Profile - Adult v2 Profile: Initial Info: How to be AddressedDutch Spoken Language PreferredEnglish Stated Reason for Admissioncouldn't breathe Patient Belongingsremains with patient Patient Belongings Remaining with Patienthearing aids; vision aids [place] Medic[place] Brought to Hospitalno Are you currently using the Personal Electronic Health Record or [employer] Are you interested in learning more about [employer] for the management of your healthnot at this time Wants Family/Rep Notified of Admissionn/a; family present Notify PCPnotify PCP Informed of Patient Visiting Rightsyes General Health: Weight in kg125 kilogram(s)(1) Weight in vlk384.5 pound(s) Weight Methodactual (measured) Scale Typebed Height in cm180.3 centimeter(s) Height in feet5 feet(1) Height in ajpfcd86 inch(es)(1) Height Methodstated BMI (kg/m2)38.451 square meter RSP Based Care: How would you like to participate in your careanything to get home What is the number one concern for you during this hospitalizationgoing home What is the most important thing we can do to support you during this hospitalizationhelp me to get home Is there anything we need to know to best care for younone Substance: Current or Former Substance Use never: e-Cigarette/Vaping, Alcohol, Street Drugs YES: Cigarette/Tobacco(2) Tobacco Cessation Education (provide if tobacco use within the last 12 mos) patient declined Other Tobacco Use Commentschews tobacco Health Mgmt: Symptoms/Conditions Managed at Homecardiovascular Cardiovascular Managementnot managed Cardiovascular Symptoms/Conditions CommentCHF Relationship/Environ: Resource/Environmental Concernsnone Primary Source of Support/Comfortspouse Lives Withspouse Living Arrangementshouse Services Anticipated at Transitionnone Anticipated Transition T[place] Significant IndicatorsComplete Information Review: Allergies, Home Meds and Significant Events have been Reviewed and Verified with Patient/Familyyes ALLERGY, INTOLERANCE, ADVERSE EVENT: Allergies: No Known Allergies: Active Electronic Signatures: Lisa Shepherd (TANMAY) (Signed 30-May-2020 19:00) Authored: Initial Info, General Health, RSP Based Care, Substance, Health Mgmt, Relationship/Environ, Additional Information Last Updated: 30-May-2020 19:00 by Lisa Shepherd (TANMAY) References: 1. Data Referenced From 1. Vital Signs 30-May-2020 10:48 2. Data Referenced From Provider Note - ED v2 30-May-2020 11:03 [facility] Provider Note - ED v2on 11- Provider Note - ED v2 Provider Note - ED v2: Chart Review: ED NOTES ED NOTES: 85-year-old male presents by wheelchair with increasing dyspnea and tachypnea. states that the symptoms initially started in December of this year. She states they have waxed and waned since then. Symptoms today have become significantly more noticeable with patient having extreme difficulty ambulating. Patient has 4+ edema of lower extremities. Patient is not on any diuretic. Patient's oxygen was 92% on room air. However his respiratory rate was close to 30. Patient was placed on BiPAP and given 40 mg of Lasix IV and 2 mg of IV morphine and symptoms have improved significantly. Patient states he does not smoke but does chew. Patient denies any nausea, vomiting or diarrhea. Mild chest tightness or heaviness with breathing. Patient has improved while on BiPAP. states that most of his symptoms started at the end of January after he sustained multiple spider bites. Was told he had some type of toxin. He does use aerosols at home but infrequently. Symptoms he presents with today have worsened over the last 3 to 4 days. Patient has been unable to lie flat during this time. And has been sleeping in a chair. Normally his ankles are not as edematous as they are today. Patient does get moderately anxious at times. Patient has voided with some minimal improvement. Patient did well after the aerosol and the Solu-Medrol was given. Patient has no substernal pressure at all. We will attempt to get the patient off BiPAP. Patient will be admitted for further diagnostic studies and treatment. Patient is stable upon admission. Heart score is 4. I was able to transition the patient to 2 L of oxygen via nasal cannula and he is doing quite well. Patient can be admitted to a medical floor. HISTORY OF PRESENTING ILLNESS SCARLETT is a 85 year old Male and was seen by me at 30-May-2020 10:39 for a chief complaint of shortness of breath (Patient to ED with c/o SOB since January since he got bit by a spider. Patient also states I couldn't breathe last night I could only relax in my recliner. It feels like there is an elephant on my chest. Patient denies heart hx, except HTN. However patient has 4+ bilat lower leg edema, audibly wheezing upon arrival. pulse ox 92% on room air.)(1). The historian is the patientspouse. Triage Information: Most recent Vital Sign Value Date Temp (F): 97.7 05-30-2020 10:48 Temp (C): 36.5 05-30-2020 10:48 Heart Rate (beats/min): 86 05-30-2020 10:48 Respirations (breaths/min): 18 05-30-2020 10:48 SpO2 (%): 92 05-30-2020 10:48 BP Systolic (mm Hg): 100 05-30-2020 10:48 BP Diastolic (mm Hg): 89 05-30-2020 10:48 PAST MEDICAL HISTORY ATTESTATION: I have reviewed and confirmed nurse's/medic's notes for patient's medications, allergies, medical history, and surgical history CURRENT OR FORMER SUBSTANCE USE: YES: Cigarette/Tobacco ALLERGIES/INTOLERANCES: No Known Allergies HEALTH HISTORY: No documented data. OUTPATIENT MEDICATIONS: Home Medications Review Status for Reconciliation: Complete Med Status: Patient Currently Takes Medications Drug Name: lisinopril-hydrochlorothia zide 10 mg-12.5 mg oral tablet Instructions: 1 tab(s) orally once a day Drug Name: Lipitor 20 mg oral tablet Instructions: 1 tab(s) orally once a day Drug Name: amLODIPine 5 mg oral tablet Instructions: 1 tab(s) orally once a day Drug Name: finasteride 5 mg oral tablet Instructions: 1 tab(s) orally once a day Drug Name: aspirin 81 mg oral delayed release tablet Instructions: 1 tab(s) orally once a day Drug Name: Vitamin D3 1000 intl units (25 mcg) oral tablet Instructions: 1 tab(s) orally once a day Drug Name: CoQ10 300 mg oral capsule Instructions: 1 cap(s) orally once a day Drug Name: PreserVision AREDS 2 oral capsule Instructions: 1 cap(s) orally once a day Drug Name: Saw Boswell oral capsule Instructions: 1 cap(s) orally once a day SIGNIFICANT EVENTS: Past Medical History Description:HYPERTENSION/ CHOLESTEROLEMIA Past Surgical History Description:PROSTATE CIGARETTE USE DETAIL: Cigarette Smoking Status: unknown if ever smoked TOBACCO USE DETAIL: Current Tobacco Use: chewing tobacco RESULTS/VITAL SIGNS RESULTS: Recent Lab Results: I have reviewed these laboratory results: Troponin I, Serum Trending View [id number] 15:40:00 30-May-2020 11:06:00 Troponin I, Serum0.02 0.03 Coronavirus 2019 by PCR 30-May-2020 11:07:00 ResultValue Fluid Source Nasal, Nasopharyngeal Coronavirus 2019,PCR NOT DETECTED Reference Range: Not Detected . This assay is designed to detect the N2 and E genes of SARS-CoV-2 via nucleic acid amplification. A Not Detected result does not preclude COVID-19 infection since the adequacy of sample collection a First Covid Nasal Swab Test Yes Employed in Healthcare No Symptomatic as defined by CDC Yes Date of Symptom Onset 20200530 Hospitalized (or planned to be admitted) Yes ICU No Resident in congregate care setting No Complete Blood Count + Differential 30-May-2020 11:06:00 ResultValue White Blood Cell Count 10.9 Nucleated Erythrocyte Count 0.6 Red Blood Cell Count 4.23 L HGB 12.8 L HCT 38.0 L MCV 90 MCHC 33.8 PLT 257 RDW-CV 13.3 Neutrophil % 81.9 Lymphocyte % 6.6 Monocyte % 10.5 Eosinophil % 0.3 Basophil % 0.7 Neutrophil Count 8.90 H Lymphocyte Count 0.70 L Monocyte Count 1.10 H Eosinophil Count 0.00 Basophil Count 0.10 Comprehensive Metabolic Panel 30-May-2020 11:06:00 ResultValue Glucose, Serum 133 H NA 128 L K 3.5 CL 94 L Bicarbonate, Serum 25 Anion Gap, Serum 13 BUN 9 CREAT 0.68 GFR-Non >60 GFR- >60 Calcium, Serum 9.1 ALB 4.1 ALKP 128 T Pro 7.3 T Bili 1.4 H Alanine Aminotransferase, Serum 19 Aspartate Transaminase, Serum 24 Brain Natriuretic Peptide 30-May-2020 11:06:00 ResultValue Brain Natriuretic Peptide 207 H Creatine Kinase, Level 30-May-2020 11:06:00 ResultValue Creatine Kinase, Level 155 Radiology Results: Impression: Mild cardiomegaly. Slight fluid or thickening in the right horizontal fissure. Xray Chest 1 View [May 30 2020 10:57AM] VITAL SIGNS: T PRBP SpO2O2(LPM) %FiO2 Method 30-May-2020 16:15:[id number] 98 30-May-2020 13:51:00-6700674/66 97 30-May-2020 12:22:00-177933/76 30-May-2020 11:43:00-902992/86 99 30-May-2020 11:00:00-6413215/73 97 supplemental O2 30-May-2020 10:48:[id number]/89 92 room air, no respiratory support EKG INTERPRETATION #1: EKG Date/Time: 30-May-2020 10:40 Rate: 81 Impression: Atrial fibrillation with normal ventricular response Indication: dyspnea Rhythm: Atrial Fibrillation STEMI: no [place]: Left Prior EKG: no old EKG available PHYSICAL EXAM CONSTITUTIONAL: Well appearing, well nourished, awake, alert, oriented to person, place, time/situation and in initial moderate apparent distress. HENMT: Airway patent, ears with clear tympanic membranes bilaterally. Nasal mucosa clear. Mouth with normal mucosa. Throat has no vesicles, no oropharyngeal exudates and uvula is midline. Face with no lymph node enlargement. EYES: Clear bilaterally, pupils equal, round and reactive to light. CARDIOVASCULAR: Irregular rate and rhythm. Heart sounds S1, S2. No murmurs, rubs or gallops. PMI non-displaced. RESPIRATORY: Breath sounds diminished with some basilar crackles and a few rhonchi GASTROINTESTINAL: Abdomen soft, non-distended, no rebound, no guarding. Bowel sounds normal in all 4 quadrants. GENITOURINARY: No discharge, no lesions. MUSCULOSKELETAL: Spine appears normal, range of motion is not limited, no muscle or joint tenderness. 4+ pitting edema of lower extremities. NEUROLOGICAL: Alert and oriented, no focal deficits, no motor or sensory deficits. SKIN: Skin normal color for race, warm, dry and intact. No evidence of trauma. PSYCHIATRIC: Alert and oriented to person, place, time/situation. normal mood and affect. No apparent risk to self or others. HEME/LYMPH: No adenopathy or splenomegaly. No cervical, supraclavicular or inguinal lymphadenopathy. 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 Admitting Considerations: ATTESTATION CRITICAL CARE TIME Is this a critically ill patient: yes Billing Provider Critical Care Time (mins): 90 Primary Critical Care Issue/Treatment (See MDM/ED Course/Tx Plan for greater detail): (CHF< COPD Angina) Additional Critical Care Provided: direct patient care (not related to procedure), additional history taking, interpretation of diagnostic studies, documentation and consult w/ pt's family directly relating to pts condition Electronic Signatures: Honey Chen () (Signed 10-Nov-2020 17:12) Authored: ED Notes, HPI, PMH, PE, Results/Vital Signs, EKG, Clinical Impression, Attestation, Chart Review, Scores Last Updated: 30-May-2020 17:12 by Honey Chen () References: 1. Data Referenced From Provider Note - ED v2 30-May-2020 11:01 [facility] Provider Note - ED v2 This report has been cancelled. [facility] Risk Screen - Adult Emergenc yon 05-30-2020 Risk Screen - Adult Emergency Preferred Language: Preferred Language: Preferred Language for Discussing Health Care (patient/designee)Romansh Advanced Directives: Advance Directive/DNRyes Advance Directive typeLiving Will, Durable Power of Domestic Laundry Worker for Healthcare Living Will AvailabilityLiving Will not available now Living Will [id number] Durable Power of Domestic Laundry Worker AvailabilityDPOA not available now Durable Power of Domestic Laundry Worker [id number] Family Violence Adult: Abuse Screen: Are you or have you been threatened or abused physically, emotionally, or sexually by anyoneno Learning Assessment (Patient): Learning Assessment (Patient): Patient is Able to be Assessed for Learningyes Factors Influencing Readiness to Learnacuteness of illness Factors that Impact Ability to Learnacuteness of illness Devices/Methods Used to Communicatenone Learning Preferencesindividual instruction; skill demonstration; verbal instruction; written material Cultural Considerationsnone Developmental Considerationsnone Roman Catholic Considerationsnone Learning Assessment (Other Learner): Learning Assessment (Other Learner): Other learner availableyes... Learnerspouse Factors Influencing Readiness to Learnanxiety Factors that Impact Ability to Learnnone Devices/Methods Used to Communicatenone Learning Preferencesindividual instruction, skill demonstration, verbal instruction Cultural Considerationsnone Developmental Considerationsnone Roman Catholic Considerationsnone Pressure Injury/TB/Substance: Pressure Injury: Pressure Injury Present on Admissionno Do you have a coughno Admission Risk Screen: Significant IndicatorsComplete CAGE: CAGE: [place] [place]/Marysol Bustamante/Michael): no Electronic Signatures: Fannie Laurent (RN) (Signed 30-May-2020 10:53) Authored: Preferred Language, Advanced Directives, Family Violence Adult, Learning Assessment (Patient), Learning Assessment (Other Learner), Pressure Injury/TB/Substance, Pressure Injury, CAGE Last Updated: 30-May-2020 10:53 by Fannie Laurent (RN) Normal [facility] TROPONIN Ion 05-30-2020 Troponin I.cardiac [Mass/Vol] 0.02 ng/mL Normal 0.00 - 0.03 [facility] Comment on above: Result Comment: LESS THAN 0.04 NG/ML: NEGATIVE REPEAT TESTING IN THREE TO SIX HOURS IF CLINICALLY INDICATED. 0.04 - 0.5 NG/ML: CONSISTENT WITH POSSIBLE CARDIAC DAMAGE AND POSSIBLE INCREASED CLINICAL RISK. SERIAL MEASUREMENTS MAY HELP ASSESS EXTENT OF MYOCARDIAL DAMAGE. >0.5 NG/ML: CONSISTENT WITH CARDIAC DAMAGE, INCREASED CLINICAL RISK AND MYOCARDIAL INFARCTION. SERIAL MEASUREMENTS MAY HELP ASSESS EXTENT OF MYOCARDIAL DAMAGE. . Note: Troponin I testing is performed using different testing methodology at [facility] than at other [facility]. Direct result comparisons should only be made within the same method. Performed By: #### T ROP2 #### [place] [address] Troponin I.cardiac [Mass/Vol] 0.03 ng/mL Normal 0.00 - 0.03 [facility] Comment on above: Result Comment: LESS THAN 0.04 NG/ML: NEGATIVE REPEAT TESTING IN THREE TO SIX HOURS IF CLINICALLY INDICATED. 0.04 - 0.5 NG/ML: CONSISTENT WITH POSSIBLE CARDIAC DAMAGE AND POSSIBLE INCREASED CLINICAL RISK. SERIAL MEASUREMENTS MAY HELP ASSESS EXTENT OF MYOCARDIAL DAMAGE. >0.5 NG/ML: CONSISTENT WITH CARDIAC DAMAGE, INCREASED CLINICAL RISK AND MYOCARDIAL INFARCTION. SERIAL MEASUREMENTS MAY HELP ASSESS EXTENT OF MYOCARDIAL DAMAGE. . Note: Troponin I testing is performed using different testing methodology at [facility] than at other [facility]. Direct result comparisons should only be made within the same method. Performed By: #### B MP #### [address] [address] Triage - EDon 05-30-2020 Triage - ED Chart Review: ARRIVAL INFORMATION Mode of Arrival: private vehicle CHIEF COMPLAINT SCARLETT STEVENS is a Male patient with a chief complaint of shortness of breath (Patient to ED with c/o SOB since January since he got bit by a spider. Patient also states I couldn't breathe last night I could only relax in my recliner. It feels like there is an elephant on my chest. Patient denies heart hx, except HTN. However patient has 4+ bilat lower leg edema, audibly wheezing upon arrival. pulse ox 92% on room air.). Triage Date/Time: 30-May-2020 10:48 Pain Rating (0-10): 4 = Moderate Vital Signs: Temperature: 97.7F ( 36.5C) taken oral Blood Pressure: 100/89 Mean: Heart Rate: 86 Respiratory Rate: 18 Pulse Oximetry: 92% on room air, no respiratory support. Height: 5 feet 11.00 inches. 180.3 CM Weight: 275.5 pounds. Calculated 125.0 kg. (stated) Calculated BMI (kg/m2): 38.451 Calculated BSA (m2) 2.50 Bird In Hand Coma Scale: Best Eye Response: (E4) spontaneous Best Motor Response: (M6) obeys commands Best Verbal Response: (V5) oriented Bird In Hand Score: 15 Patient has homicidal thoughts: no SALVATORE: 2 Symptoms Are POSITIVE For: chest pain and dyspnea. Symptoms Are Negative For: body aches, chills, congestion, cough, diaphoresis, fever, headache and malaise. Risk Screens Suicide Risk Screen In the Past Month: Have you wished you were or wished you could go to sleep and not wake up no In the Past Month: Have you had any actual thoughts of killing yourself no In Your Lifetime: Have you ever done anything, started to do anything, or prepared to do anything to end your life no Lawson Fall Scale Screening Has the patient fallen before (or is the patient in the ED as a result of a fall) has not had a fall Does the patient have an impaired gait has impaired gait Is the patient cognitively impaired not cognitively impaired Lawson Fall Scale History of falling (immediate or previous) no (0) Secondary Diagnosis no (0) Intravenous Therapy/ Heparin/Saline Lock no (0) Gait/Transferring impaired (20) Ambulatory Aids none/bedrest/nurse assist (0) Mental Status overestimates/forgets limitations (15) Lawson Fall Risk Score: 35 Interventions: Lawson Fall Interventions: MODERATE INTERVENTIONS: *Low Interventions Plus: * falls risk band/sticker applied to patient, *yellow non-skid footwear, *instruct to call for assistance before getting out of bed, *bed/chair/bedside commode/toilet alarms, *sensory devices/ambulatory aides available and in reach, *medications reviewed for potential side effects and care planning. TRAVEL HISTORY Travel History Coronavirus Screening: positive for symptoms PAIN Pain Scale Used: JOE Pain Rating (0-10): 4 = Moderate Past Medical History: Past Medical History Reviewedyes Electronic Signatures: Fannie Laurent (TANMAY) (Signed 30-May-2020 10:52) Authored: Quick Triage, Risk Screens, Pain, Chart Review, Scores, Past Medical History Last Updated: 30-May-2020 10:52 by Fannie Laurent (TANMAY) Normal [facility] COMPREHENSIVE PANELon 2019 Albumin [Mass/Vol] 4.0 g/dL Normal 3.4 - 5.0 [facility] Comment on above: Performed By: #### C MP #### [place] [address] ALP [Catalytic activity/Vol] 87 U/L Normal 33 - 136 [facility] Comment on above: Performed By: #### C MP #### [address] [address] ALT [Catalytic activity/Vol] 11 U/L Normal 10 - 52 [facility] Comment on above: Result Comment: Latoya ents treated with Sulfasalazine may generate falsely decreased results for ALT. Performed By: #### C MP #### [address] [address] Anion gap [Moles/Vol] 10 mmol/L Normal 10 - 20 [facility] Comment on above: Performed By: #### C MP #### [address] [address] AST [Catalytic activity/Vol] 15 U/L Normal 9 - 39 [facility] Comment on above: Performed By: #### C MP #### [address] [address] Bilirubin [Mass/Vol] 0.7 mg/dL Normal 0.0 - 1.2 [facility] Comment on above: Performed By: #### C MP #### [address] [address] Calcium [Mass/Vol] 9.4 mg/dL Normal 8.6 - 10.3 [facility] Comment on above: Performed By: #### C MP #### [address] [address] Chloride [Moles/Vol] 99 mmol/L Normal 98 - 107 [facility] Comment on above: Performed By: #### C MP #### [address] [address] Creatinine [Mass/Vol] 0.87 mg/dL Normal 0.50 - 1.30 [facility] Comment on above: Performed By: #### C MP #### [address] [address] GFR- AM. >60 Normal >60 [facility] Comment on above: Result Comment: CALC ULATIONS OF ESTIMATED GFR ARE PERFORMED USING THE MDRD STUDY EQUATION FOR THE IDMS-TRACEABLE CREATININE METHODS. CLIN CHEM 2007;53:766-72 Performed By: #### C MP #### [place] [id number] GFR-NON AM. >60 Normal >60 [facility] Comment on above: Performed By: #### C MP #### [address] [address] Glucose [Mass/Vol] 107 mg/dL High 74 - 99 [facility] Comment on above: Performed By: #### C MP #### [address] [address] HCO3 (Bld) [Moles/Vol] 28 mmol/L Normal 21 - 32 [facility] Comment on above: Performed By: #### C MP #### [address] [address] Potassium [Moles/Vol] 4.0 mmol/L Normal 3.5 - 5.3 [facility] Comment on above: Performed By: #### C MP #### [address] [address] Protein [Mass/Vol] 6.9 g/dL Normal 6.4 - 8.2 [facility] Comment on above: Performed By: #### C MP #### [place] [id number] [place] [address] Sodium [Moles/Vol] 133 mmol/L Low 136 - 145 [facility] Comment on above: Performed By: #### C MP #### [place] [id number] [place] [address] Urea nitrogen [Mass/Vol] 16 mg/dL Normal 6 - 23 [facility] Comment on above: Performed By: #### C MP #### [address] [address] Provider Note - ED v2on 07 Provider Note - ED v2 Provider Note - ED v2: Chart Review: ED NOTES ED NOTES: Patient came in with complaints of insect bites and sore infection on the buttock bite. Patient denies any pain. Patient's says some watery liquid was coming out of the one on the buttock. Patient denies fevers headaches blurred vision nausea vomiting constipation diarrhea. HISTORY OF PRESENTING ILLNESS SCARLETT is a 84 year old Male and was seen by me at 17-Feb-2020 13:50. The historian is the patient. Triage Information: Most recent Vital Sign Value Date PAST MEDICAL HISTORY ATTESTATION: I have reviewed and confirmed nurse's/medic's notes for patient's medications, allergies, medical history, and surgical history PSYCHOSOCIAL SCREENING: NO: concerns for safety at home, feelings of depression, feels like hurting others and feels like hurting self ALLERGIES/INTOLERANCES: No Known Allergies HEALTH HISTORY: No documented data. OUTPATIENT MEDICATIONS: Home Medications Review Status for Reconciliation: Complete Med Status: Patient Currently Takes Medications Drug Name: lisinopril-hydrochlorothia zide 10 mg-12.5 mg oral tablet Instructions: 1 tab(s) orally once a day Drug Name: Lipitor 20 mg oral tablet Instructions: 1 tab(s) orally once a day Drug Name: amLODIPine 5 mg oral tablet Instructions: 1 tab(s) orally once a day Drug Name: finasteride 5 mg oral tablet Instructions: 1 tab(s) orally once a day Drug Name: amoxicillin-clavulanate 875 mg-125 mg oral tablet Instructions: 1 tab(s) orally 2 times a day SIGNIFICANT EVENTS: Past Medical History Description:HYPERTENSION/ CHOLESTEROLEMIA Past Surgical History Description:PROSTATE REVIEW OF SYSTEMS INTEGUMENTARY: ( Patient has right cheek bug bite on buttock.Patient also has 4 bug bites on the left conroy.) All other systems reviewed and are negative RESULTS/VITAL SIGNS VITAL SIGNS: T PRBP SpO2O2(LPM) %FiO2 Method 17-Feb-2020 13:43:[id number] PHYSICAL EXAM CONSTITUTIONAL: Well appearing, well nourished, awake, alert, oriented to person, place, time/situation and in no apparent distress. HENMT: Airway patent, EYES: pupils are accommodating CARDIOVASCULAR: Normal rate, regular rhythm. RESPIRATORY: Breath sounds clear and equal bilaterally and unlabored. no Rales rhonchi or crackles. MUSCULOSKELETAL: Spine appears normal, range of motion is not limited, no muscle or joint tenderness. NEUROLOGICAL: Alert and oriented, no focal deficits, no motor or sensory deficits. SKIN: Skin normal color for race, warm, dry she does have a small 1 cm erythemic area to the right buttock consistent with infection. Has four 1 cm bites in a linear form going up the left conroy. These do not look infected. PSYCHIATRIC: Alert and oriented to person, place, time/situation. normal mood and affect. No apparent risk to self or others. CLINICAL IMPRESSION Diagnosis/Annotation: ED Dx Name:Bug bite Code:W57.XXXA Dispostion: discharged Type: home ATTESTATION Comments/Additional Findings: Patient was prescribed Augmentin twice a day for 10 days. Patient was instructed about proper use of medication and supportive therapies to do at home. Patient will follow-up if symptoms seem to be getting worse not better. CRITICAL CARE TIME Is this a critically ill patient: no Electronic Signatures: Margret Cote (LOW PRESSURE BOILER TENDER-FACTORY ASSEMBLER) (Signed 17-Feb-2020 14:30) Authored: Provider Note - ED v2 Last Updated: 17-Feb-2020 14:30 by Margret Cote (LOW PRESSURE BOILER TENDER-FACTORY ASSEMBLER) Normal [facility] Potassiumon 02-10-2019 Potassium [Moles/Vol] 3.5 mmol/L Normal 3.5-5.[address] [facility] Comment on above: Performed By: #### 2 [id number] #### [employer] [address] [place] [address] CMPon 12-31-2018 Albumin [Mass/Vol] 3.9 g/dL Normal 3.4-5.0 [facility] Comment on above: Performed By: #### 2 [id number] #### [employer] [address] [place] [address] Albumin/Globulin [Mass ratio] 1.2 {ratio} Normal 1.1-1.[address] [facility] Comment on above: Performed By: #### 2 [id number] #### [employer] [address] [place] [address] Alk Phos 107 Int._Unit/L Normal 33-[address] [facility] Comment on above: Performed By: #### 2 [id number] #### [employer] [address] [place] [address] ALT [Catalytic activity/Vol] 13 Int._Unit/L Normal 10-[address] [facility] Comment on above: Performed By: #### 2 [id number] #### [employer] [address] [place] [address] Anion gap [Moles/Vol] 11 mmol/L Normal 10-[address] [facility] Comment on above: Performed By: #### 2 [id number] #### [employer] [address] [place] [address] AST [Catalytic activity/Vol] 20 Int._Unit/L Normal 9-[address] [facility] Comment on above: Performed By: #### 2 [id number] #### [employer] [address] [place] [address] Bili Total 0.80 mg/dL Normal 0.00-1.[address] [facility] Comment on above: Performed By: #### 2 [id number] #### [employer] [address] [place] [address] Calcium [Mass/Vol] 9.1 mg/dL Normal 8.6-10.3 [facility] Comment on above: Performed By: #### 2 [id number] #### [employer] [address] [place] [address] Chloride [Moles/Vol] 103 mmol/L Normal 98-[address] [facility] Comment on above: Performed By: #### 2 [id number] #### [employer] [address] [place] [address] CO2 [Moles/Vol] 26.0 mmol/L Normal 21.0-32.0 [facility] Comment on above: Performed By: #### 2 [id number] #### [employer] [address] [place] [address] Creatinine [Mass/Vol] 0.7 mg/dL Normal 0.5-1.[address] [facility] Comment on above: Performed By: #### 2 [id number] #### [employer] [address] [place] [address] Globulin (S) [Mass/Vol] 3.0 g/dL Normal 2.0-4.[address] [facility] Comment on above: Performed By: #### 2 [id number] #### [employer] [address] [place] [address] Glucose [Mass/Vol] 105 mg/dL High 70-99 [facility] Comment on above: Performed By: #### 2 [id number] #### [employer] [address] [place] [address] Potassium [Moles/Vol] 3.3 mmol/L Low 3.5-5.[address] [facility] Comment on above: Performed By: #### 2 665938 #### [employer] [address] [place] [address] Protein [Mass/Vol] 7.1 g/dL Normal 6.4-8.2 [facility] Comment on above: Performed By: #### 2 [id number] #### [employer] [address] [place] [address] Sodium [Moles/Vol] 137 mmol/L Normal 136-145 [facility] Comment on above: Performed By: #### 2 [id number] #### [employer] [address] [place] [address] Urea nitrogen [Mass/Vol] 10 mg/dL Normal 6-[address] [facility] Comment on above: Performed By: #### 2 238109 #### [employer] [address] [place] [address] Urea nitrogen/Creatinin e [Mass ratio] 14.3 ratio Normal 5.4-30.[address] [facility] Comment on above: Performed By: #### 2 [id number] #### [employer] [address] [place] [address] eGFRon 12-31-2018 GFR/1.73 sq M predicted among non-blacks MDRD (S/P/Bld) [Vol rate/Area] mL/min/{1.73_m2} Normal [facility] Comment on above: Order Comment: Order added by Discern Expert. Performed By: #### 1 [id number] #### [employer] [address] [place] [address] CMPon 07-03-2018 Albumin [Mass/Vol] 4.1 g/dL Normal 3.4-5.0 [facility] Comment on above: Performed By: #### 2 [id number] #### [employer] [address] [place] [address] Albumin/Globulin [Mass ratio] 1.4 {ratio} Normal 1.1-1.[address] [facility] Comment on above: Performed By: #### 2 [id number] #### [employer] [address] [place] [address] Alk Phos 96 Int._Unit/L Normal 33-[address] [facility] Comment on above: Performed By: #### 2 [id number] #### [employer] [address] [place] [address] ALT [Catalytic activity/Vol] 14 Int._Unit/L Normal 10-[address] [facility] Comment on above: Performed By: #### 2 [id number] #### [employer] [address] [place] [address] Anion gap [Moles/Vol] 9 mmol/L Low 10-[address] [facility] Comment on above: Performed By: #### 2 [id number] #### [employer] [address] [place] [address] AST [Catalytic activity/Vol] 19 Int._Unit/L Normal 9-[address] [facility] Comment on above: Performed By: #### 2 [id number] #### [employer] [address] [place] [address] Bili Total 0.68 mg/dL Normal 0.00-1.[address] [facility] Comment on above: Performed By: #### 2 [id number] #### [employer] [address] [place] [address] Calcium [Mass/Vol] 9.4 mg/dL Normal 8.6-10.3 [facility] Comment on above: Performed By: #### 2 586117 #### [employer] [address] [place] [address] Chloride [Moles/Vol] 107 mmol/L Normal 98-[address] [facility] Comment on above: Performed By: #### 2 707803 #### [employer] [address] [place] [address] CO2 [Moles/Vol] 26.0 mmol/L Normal 21.0-32.0 [facility] Comment on above: Performed By: #### 2 [id number] #### [facility] [employer] [address] [place] [address] Creatinine [Mass/Vol] 0.8 mg/dL Normal 0.5-1.[address] [facility] Comment on above: Performed By: #### 2 [id number] #### [employer] [address] [place] [address] Globulin (S) [Mass/Vol] 3.0 g/dL Normal 2.0-4.[address] [facility] Comment on above: Performed By: #### 2 [id number] #### [employer] [address] [place] [address] Glucose [Mass/Vol] 112 mg/dL High 70-99 [facility] Comment on above: Performed By: #### 2 [id number] #### [employer] [address] [place] [address] Potassium [Moles/Vol] 3.8 mmol/L Normal 3.5-5.[address] [facility] Comment on above: Performed By: #### 2 [id number] #### [employer] [address] [place] [address] Protein [Mass/Vol] 7.0 g/dL Normal 6.4-8.2 [facility] Comment on above: Performed By: #### 2 [id number] #### [employer] [address] [place] [address] Sodium [Moles/Vol] 138 mmol/L Normal 136-145 [facility] Comment on above: Performed By: #### 2 252002 #### [employer] [facility] [place] [address] Urea nitrogen [Mass/Vol] 13 mg/dL Normal 6-[address] [facility] Comment on above: Performed By: #### 2 [id number] #### [employer] [facility] [place] [address] Urea nitrogen/Creatinin e [Mass ratio] 16.2 ratio Normal 5.4-30.[address] [facility] Comment on above: Performed By: #### 2 [id number] #### [employer] [address] [place] [address] Lipid Profileon 07-03-2018 Cholesterol [Mass/Vol] 128 mg/dL Normal 0-[address] [facility] Comment on above: Result Comment: TOTA L CHOLEESTEROL: <200 NORMAL 200 - 239 BORDERLINE HIGH >240 HIGH Performed By: #### 3 [id number] #### [employer] [address] [place] [address] Cholesterol in HDL [Mass/Vol] 52 mg/dL Normal 40-[address] [facility] Comment on above: Performed By: #### 3 [id number] #### [employer] [address] [place] [address] Cholesterol in LDL [Mass/Vol] 61 mg/dL Normal 0-[address] [facility] Comment on above: Result Comment: <100 OPTIMAL 100-129 NEAR / ABOVE OPTIMAL 130-159 BORDERLINE HIGH 160-189 HIGH >190 VERY HIGH CALC LDL NOT VALID WHEN TRIGLYCERIDE IS >400 MG/DL Performed By: #### 3 [id number] #### [employer] [address] [place] [address] Cholesterol in VLDL [Mass/Vol] 15 mg/dL Normal 0-[address] [facility] Comment on above: Performed By: #### 3 [id number] #### [employer] [address] [place] [address] Triglyceride [Mass/Vol] 77 mg/dL Normal 0-[address] [facility] Comment on above: Result Comment: AGE DESIRABLE BORDERLINE HIGH 91 D - 9 Y 0 - 74 75 - 99 > 100 10 - 19 Y 0 - 89 90 - 129 > 130 20 -24 Y 0 - 114 115 - 149 > 150 > 25 0 - 149 150 - 199 200 - 499 Performed By: #### 3 [id number] #### [employer] [address] [place] [address] eGFRon 07-03-2018 GFR/1.73 sq M predicted among non-blacks MDRD (S/P/Bld) [Vol rate/Area] mL/min/{1.73_m2} Normal [facility] Comment on above: Order Comment: Order added by Discern Expert. Performed By: #### 1 [id number] #### [employer] [address] [place] [address] Hep Func Panelon 04-13-2018 Albumin [Mass/Vol] 4.1 g/dL Normal 3.2-5.0 [facility] Comment on above: Performed By: #### 2 [id number] #### [employer] [address] [place] [address] Albumin/Globulin [Mass ratio] 1.4 {ratio} Normal 1.1-1.[address] [facility] Comment on above: Performed By: #### 2 [id number] #### [employer] [address] [place] [address] Alk Phos 80 Int._Unit/L Normal 42-[address] [facility] Comment on above: Performed By: #### 2 [id number] #### [employer] [facility] [place] [address] ALT [Catalytic activity/Vol] 14 Int._Unit/L Normal 10-[address] [facility] Comment on above: Performed By: #### 2 [id number] #### [employer] [address] [place] [address] AST [Catalytic activity/Vol] 21 Int._Unit/L Normal 10-[address] [facility] Comment on above: Performed By: #### 2 [id number] #### [employer] [address] [place] [address] Bili Direct <.10 Normal .00-.[address] [facility] Comment on above: Performed By: #### 2 [id number] #### [employer] [address] [place] [address] Bili Indirect >0.[address] [facility] Comment on above: Result Comment: No e stablished ranges available for the Indirect Biliruben. Performed By: #### [id number] #### [employer] [employer] [address] [place] [address] Bili Total 0.6 mg/dL Normal 0.2-1.[address] [facility] Comment on above: Performed By: #### 2 [id number] #### [employer] [employer] [address] [place] [address] Globulin (S) [Mass/Vol] 3.0 g/dL Normal 2.0-4.[address] [facility] Comment on above: Performed By: #### 2 [id number] #### [employer] [address] [place] [address] Protein [Mass/Vol] 7.1 g/dL Normal 6.4-8.3 [facility] Comment on above: Performed By: #### 2 [id number] #### [employer] [employer] [address] [place] [address] NM Myocardial Spect Multi Re st/Stresson 03-27-2018 NM Myocardial Spect Multi Rest/Stress Exam Date/Time: 03/27/2018 11:02 EDT Reason for Exam: HIGH CORONARY CALCIUM SCORE HTN TOURLAS ORD JOHANA Report STUDY: NM Myocardial Spect Multi Rest/Stress; 03/27/2018 11:02 am INDICATION: HIGH CORONARY CALCIUM SCORE HTN TOURLAS ORD JOHANA. COMPARISON: None. ACCESSION NUMBER(S): [id number] ORDERING CLINICIAN: Vipin Angel TECHNIQUE: DIVISION OF NUCLEAR MEDICINE PHARMACOLOGIC STRESS MYOCARDIAL PERFUSION SCAN, ONE DAY PROTOCOL The patient received an intravenous dose of 11.3 mCi of Tc-99m sestamibi and resting emission tomographic (SPECT) images of the myocardium were acquired. The patient then received an intravenous infusion of 0.4 mg regadenoson (Lexiscan) followed by an additional dose of 31.7 mCi of Tc-99m sestamibi. Stress phase SPECT images of the myocardium were then acquired. These included ECG-gated images to assess and quantify ventricular function. FINDINGS: Stress and rest images both demonstrate fixed defect along the inferior wall extending into the apex with abnormal wall motion and thickening. Left ventricular dilatation is noted. ECG-gated images demonstrate a borderline LV ejection fraction of 44 % (normal above 45 percent). IMPRESSION: No definite evidence of ischemia. Likely scar along the inferior wall extending into the apex. Left ventricular dilatation is noted. Borderline left ventricular ejection fraction of 44%. Exam Date/Time: 03/27/2018 11:02 EDT Report Images were interpreted at [facility]. FINAL REPORT Dictated: 03/27/2018 11:17 am Jamarcus Clark MD Signed (Electronic Signature): 03/27/2018 11:17 am Signed by: Jamarcus Clark MD Technologist: [facility] Vital Signs Date Time Vital Sign Value Performing Clinician Facility 01-16-2021 16:04-0400 Body height 177.8 cm Chuck O Paulino Work Phone: [facility] Work Phone: 01-16-2021 16:04-0400 Body mass index (BMI) [Ratio] 38.65 kg/m2 Chuck O Paulino Work Phone: [facility] Work Phone: 01-16-2021 16:04-0400 Body surface area Derived from formula 2.37 m2 Chuck O Paulino Work Phone: [facility] Work Phone: 01-16-2021 16:04-0400 Body temperature 98 [degF] Chuck O Paulino Work Phone: [facility] Work Phone: 01-16-2021 16:04-0400 Body weight 122.19 kg Chuck O Paulino Work Phone: [facility] Work Phone: 01-16-2021 16:04-0400 Diastolic blood pressure 60 mm[Hg] Chuck O Paulino Work Phone: [facility] Work Phone: 01-16-2021 16:04-0400 Heart rate 68 /min Chuck O Paulino Work Phone: [facility] Work Phone: 01-16-2021 16:04-0400 Systolic blood pressure 120 mm[Hg] Chuck Paulino Work Phone: [facility] Work Phone: 03-02-2020 10:33-0400 BMI (Body Mass Index) 40.18 kg/m2 Chuck Paulino [facility] Work Phone: 03-02-2020 10:33-0400 Body Temperature 97 [degF] Chuck Paulino [facility] Work Phone: 03-02-2020 10:33-0400 Body weight 127 kg Chuck Paulino [facility] Work Phone: 03-02-2020 10:33-0400 BP Diastolic 80 mm[Hg] Chuck Paulino [facility] Work Phone: Comment on above: Location: [facility]; 03-02-2020 10:33-0400 BP Systolic 128 mm[Hg] Chuck Paulino [facility] Work Phone: Comment on above: Location: [facility]; 03-02-2020 10:33-0400 BSA (Body Surface Area) 2.41 m2 Chuck Paulino [facility] Work Phone: 03-02-2020 10:33-0400 Height 177.8 cm Chuck Paulino [facility] Work Phone: 03-02-2020 10:33-0400 Pulse (Heart Rate) 68 /min Chuck Paulino [facility] Work Phone: Encounters Encounter Date Encounter Type Care Provider Facility Start: 12-22-2023 End: 12-22-2023 Emergency department patient visit [facility] Start: 12-22-2023 End: 12-22-2023 Emergency department patient visit [facility] Start: 12-22-2023 End: 12-22-2023 Emergency department patient visit [facility] Start: 04-26-2021 Patient encounter procedure Chuck Paulino Work Phone: [facility] Work Phone: Start: 01-16-2021 Patient encounter procedure Chuck Paulino Work Phone: [facility] Work Phone: Start: 08-04-2020 End: 08-04-2020 Orders Only Cheri Dominique Work Phone: [facility] Start: 03-02-2020 Patient encounter procedure Chuck Paulino [facility] Work Phone: Start: 12-31-2019 Patient encounter procedure Chuck Paulino [facility] Work Phone: Start: 07-29-2019 Patient encounter procedure Chuck Paulino [facility] Work Phone: Start: 05-18-2019 Patient encounter procedure Chuck Paulino [facility] Work Phone: Start: 07-03-2018 Patient encounter procedure Facility:[id number] Start: 04-13-2018 Patient encounter procedure Facility:[id number] Start: 03-27-2018 Patient encounter procedure Facility:[id number] Start: 01-20-2018 Patient encounter procedure Facility:[id number] Start: 12-30-2017 Patient encounter procedure Facility:[id number] Patient encounter procedure Chuck Paulino Work Phone: [facility] Work Phone: Procedures Date Procedure Procedure Detail Performing Clinician Start: 08-17-2020 Cardiac catheterization Chuck Paulino Work Phone: Start: 08-17-2020 Placement of stent i n coronary artery Chuck Paulino Work Phone: Comment on above: drug territrossana stent[employer], Synergy stent 4.0mm x 24mm [id number]; Start: 05-31-2020 Echocardiography Start: 03-02-2020 Comprehensive metabo lic 2000 panel Chuck Paulino Start: 02-23-2014 Colonoscopy Chuck rain Work Phone: Cataract surgery Chuck maldonado Colonic polypectomy Chuck rain End: 02-23-2014 Colonoscopy Chuck Paulino Testis excision Chuck Paulino Transurethral prostatectomy Chuck Paulino Plan of Treatment Date Care Activity Detail Author Start: 03-21-2020 Influenza vaccination given Se quential Influenza Vaccine (#1) [facility] Start: 1987 Administration of he rpes zoster vaccine Zoster Vaccines (1 of 2) [facility] Start: 1949 Adolescent depressio n screening assessment Depression Screening (PHQ9) [facility] Start: 1940 History and physical examination, annual for health maintenance Wellness Visit [facility] Start: 1937 Fall risk assessment Falls Risk Asse ssment [facility] Start: 1937 Tetanus vaccination Tetanus: Every 1 0yrs [facility] Immunizations Immunization Date Immunization Notes Care Provider Fa radha 04-26-2021 Fluzone High-Dose Quadrivalent 0.7 ML Intramuscular Suspension Prefilled Syringe; Translations: [Fluzone High-Dose Quadrivalent 0.7 ML Intramuscular Suspension Prefilled Syringe] Chuck Paulino Work Phone: [facility] Work Phone: Comment on above: Series: 04-26-2021 influenza, seasonal, injectable Chuck Paulino Work Phone: [facility] Work Phone: Comment on above: Series: 08-31-2020 Pfizer-BioNTech COVI D-19 Vacc 30 MCG/0.3ML Intramuscular Suspension Chuck Paulino Work Phone: [facility] Work Phone: Comment on above: Series: 08-12-2020 Pfizer-BioNTech COVI D-19 Vacc 30 MCG/0.3ML Intramuscular Suspension Chuck Paulino Work Phone: [facility] Work Phone: Comment on above: Series: 05-01-2020 influenza, high dose seasonal, preservative-free Chuck Paulino Work Phone: [facility] Work Phone: Comment on above: Series: 05-18-2019 influenza, injectabl e, quadrivalent, preservative free; Translations: [Flulaval Quadrivalent 0.5 ML Intramuscular Suspension Prefilled Syringe] Chuck Paulino [facility] Work Phone: Comment on above: Series: 04-10-2017 influenza, high dose seasonal, preservative-free Chuck Paulino Work Phone: [facility] Work Phone: 04-10-2017 pneumococcal polysaccharide vaccine, 23 valent Chuck Paulino [facility] Work Phone: Comment on above: Series: 04-08-2016 influenza, high dose seasonal, preservative-free Chuck Paulino Work Phone: [facility] Work Phone: 04-08-2016 pneumococcal conjuga te vaccine, 13 valent Chuck Paulino [facility] Work Phone: Comment on above: Series: 08-10-2009 novel influenza-H1N1 -09, preservative-free, injectable Chuck Paulino Work Phone: [facility] Work Phone: 06-14-2003 pneumococcal polysaccharide vaccine, 23 valent Chuck Paulino Work Phone: [facility] Work Phone: Payers Date Payer Category Payer Unknown PORFIRIO KNUTSON [id number] 2017-Present [id number] 2017 Unknown [id number] 2002 Medicare MEDICARE MEDICAR E PART A & B [id number] 2002-Present [place] [id number] 2002 Medicare [id number] 1937 Unknown [id number] 1937 Unknown [id number] 1937 Unknown [id number] 1937 Unknown [id number] 1937 Unknown [id number] 1937 Unknown [id number] 1937 Unknown [id number] 1937 Unknown [id number] Medicare [id number] Unknown Social History Date Type Detail Facility Start: 04-27-2018 Tobacco smoking status NHIS Never smoker [facility] Work Phone: Start: 04-27-2018 Tobacco use and exposure Never used [facility] Start: 04-27-2018 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) [facility] Sex Assigned At Not on file [facility] Never a smoker Never a smoker [facility] Work Phone: NEGATED: Highlighted row - - [facility] [employer] Phone: Functional Status Date Assessment Result Facility NEGATED: Highlighted row Functional performance Functional status health issues are not documented Disease [facility] Work Phone: Mental Status Date Assessment Result Facility NEGATED: Highlighted row Cognitive function [Interpretation] Cognitive status health issues are not documented Disease [facility] Work Phone: History of Present illness Narrative [...] denies pain in the area. Denies fever. [facility] Work Phone: Summary Purpose Family History No Family History Records Found Father Name Dates Details 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 [...] Found Hospital Course Note Send Summary: Discharge [facility] Providers: Provider RoleProvider Name IsabellaMalgorzata medina [facility] Discharge: Summary: Admission Date: .30-May-2020 10:33:00 Discharge Date: 02-Jun-2020 Attending Physician at Discharge: Malcom Black Admission Reason: Shortness of breath Final Discharge Diagnoses: COPD exacerbation, pneumonia Procedures: none Condition at Discharge: Satisfactory Disposition at Discharge: .Home Vital Signs: T PRBPSpO2 [id number]/7292% Date/Time06/01 21: 21: 21: 21: 21:15 Range(36.4C - 36.5C ) (82 - 85 ) (18 - 22 ) (132 - 137 )/ (72 - 82 ) (92% - 94% ) Date: Weight/Scale Type:Height: 30-May-2020 18:48042 kg / zxe645.3 cm Physical Exam: ENMT: He had a crowded oropharynx with no pharyngeal lesions. He had an upper partial dental device Head/Neck: His head was atraumatic and his neck was supple with no thyromegaly. He did have an increased neck circumference Respiratory/Thorax: No wheezing (more content not included)... Chief Complaint Eval redness on legspt here for flu vaccine , lot [id number], exp 01-17-22, [facility] [id number] lt deltoid pt tolerated well Additional Source Comments (unrecognized sect ion and content) No Status Records FoundNo Status Records FoundNo Status Records FoundNo Status Records FoundNo Status Records FoundNo Status Records Found INFORMATION SOURCE (unrecogn ized section and content) DATE CREATED AUTHOR 07/07/2018 [facility] DATE CREATED AUTHOR AUTHOR'S ORGANIZ ATION 02/11/2019 [facility] DATE CREATED AUTHOR AUTHOR'S ORGANIZ ATION 07/22/2020 [facility] DATE CREATED AUTHOR AUTHOR'S ORGANIZ ATION 04/18/2021 [employer] DATE CREATED AUTHOR AUTHOR'S ORGANIZ ATION 12/28/2023 [facility] DATE CREATED AUTHOR AUTHOR'S ORGANIZ ATION 12/29/[address] [facility] FOR RECORDS PERTAINING TO PATIENTS WHO ARE [...] BE BASED ON THE PRIMARY CLINICAL RECORDS. [employer] provides no warranty or guarantee of the accuracy or completeness of information in this document.
[2024-05-19 21:22] VITALS: BMI 38.0
--- NOTE | 2024-05-19 21:38 | CT_ITS ---
INDICATION: right groin pain EXAMINATION: CT ABDOMEN AND PELVIS WITHOUT CONTRAST - CT Abdomen And Pelvis W/O Contrast Injection TECHNIQUE: Helically acquired images were obtained of the abdomen and pelvis without oral or IV contrast. A radiation dose optimization technique was used for this scan. IV Contrast dosage and agent: None. Oral contrast: None. RADIATION DOSAGE (If Supplied By Facility): CTDIvol = ( 17.81 ) mGy, DLP = ( 1281.08 ) mGycm COMPARISON: No relevant prior comparison study available FINDINGS: LOWER CHEST: Minimal basilar atelectasis. Left basilar calcified granuloma. Coronary artery calcifications are seen. No cardiomegaly or pericardial effusion. LIVER: The liver is normal in size, shape, and attenuation. No focal mass. Multiple calcified granulomata . GALLBLADDER AND BILIARY TREE: Small stones layering the gallbladder lumen. No wall thickening or inflammation. No intra- or extrahepatic biliary ductal dilation. PANCREAS: No focal cystic or solid mass. SPLEEN: Normal size without focal cystic or solid mass. Multiple calcified granulomata . ADRENAL GLANDS: No nodules. KIDNEYS AND URETERS: Normal renal size and position. No hydronephrosis or nephrolithiasis. Simple right renal cyst. No specific follow-up recommended. PERITONEUM: No ascites or free air. No other fluid collection. BOWEL: Small hiatal hernia. The stomach is decompressed.. Normal caliber small bowel. No obstruction. No colonic wall thickening or inflammatory changes. Colonic diverticulosis noted without diverticulitis. No evidence of acute appendicitis. LYMPH NODES: No enlarged mesenteric or retroperitoneal lymph nodes. VESSELS: Aorta is non-dilated. Mild atherosclerotic calcification. URINARY BLADDER: Unremarkable. REPRODUCTIVE ORGANS: No pelvic masses. Mildly enlarged prostate. ABDOMINAL WALL: No discrete abdominal or pelvic wall hernia. BONES: No acute or suspicious osseous abnormality. Multilevel degenerative changes of the spine. Vacuum disc phenomenon at L5-S1. Small endplate osteophytes throughout. Moderate degenerative change of both hips. CT/Abdomen/Pelvis without Cont IMPRESSION: No acute finding in the abdomen or pelvis. No inflammatory changes. No hydronephrosis or nephrolithiasis. Cholelithiasis. No findings to suggest cholecystitis. Evidence of prior granulomatous disease. Electronically Signed: Andres Song MD at 22:13 EDT ,
--- NOTE | 2024-05-19 21:40 | ED.VIS.GI ---
HPI HPI - GI History of Present Illness Chief Complaint: Abd Pain Informant: patient and spouse/S.O. Narrative Narrative: Right lower abdominal groin pain for 3 days. Pain worse with movement. Pain worse with bowel movements. Nonbloody stools. No nausea or vomiting. No abdominal surgeries in the past. History of paroxysmal A-fib on Eliquis and metoprolol. CHF history of diuretics therefore urinates more frequently. No dysuria. Denies fever or chills. PFSH PFSH Medical History Cellulitis of leg without foot, left UTI (urinary tract infection) Smoker Chest pain Atrial fibrillation Anemia Skin tear High cholesterol Shortness of breath on exertion History of echocardiogram History of stress test Olecranon bursitis, right elbow Strain of tendon of right rotator cuff Insect bite of hand with infection Wears glasses Wears hearing aid Wears partial dentures Rash Arthritis Chewing tobacco use Non-smoker History of edema Cardiology follow-up encounter Syncope and collapse Persistent atrial fibrillation Epistaxis Chronic diastolic (congestive) heart failure 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 Hyperlipidemia Essential (primary) hypertension Obstructive sleep apnea Hypersomnia Hypoxia Renal cyst Diverticulitis Leg swelling Hiatal hernia COPD (chronic obstructive pulmonary disease) Home Medications ?Medication ?Instructions ?Recorded ?Last Taken ?Type cholecalciferol (vitamin D3) 25 25 mcg PO DAILY SUPPLEMENT 06/27/20 09/22/23 History mcg (1,000 unit) capsule vit C 250 mg-vit E 90 mg-zinc 40 1 tab PO DAILY supplement 06/27/20 09/22/23 History mg-copper 1 [id number] capsule (PreserVision AREDS-2) finasteride 5 mg tablet 5 mg PO DAILY PROSTATE 06/03/22 09/22/23 History tamsulosin 0.4 mg capsule 0.4 mg PO DAILY PROSTATE 06/03/22 09/22/23 History nitroglycerin 0.4 mg sublingual 0.4 mg sublingual Q5-15M PRN CHEST 10/31/22 Unknown Rx tablet PAIN #25 tabs turmeric 100 mg-nomi 150 1 cap PO DAILY 10/31/22 09/22/23 History mg-olive 50 mg-oreg 150 mg-capryl capsule coenzyme Q10 100 mg capsule 100 mg PO DAILY SUPPLEMENT 04/29/23 09/22/23 History (CoQ-10) albuterol sulfate 2.5 mg/3 mL 2.5 mg (3 mL) inhalation Q4H PRN 04/30/23 Unknown Rx (0.083 %) solution for nebulization shortness of breath or wheezing #75 mL apixaban 5 mg tablet (Eliquis) 5 mg PO BID BLOOD THINNER #180 05/30/23 09/23/23 Rx tabs aspirin 81 mg tablet,delayed 81 mg PO DAILY HEART HEALTH 09/23/23 09/22/23 History release (Adult Aspirin Regimen) atorvastatin 20 mg tablet (Lipitor) 20 mg PO DAILY CHOLESTEROL #90 12/01/23 Unknown Rx tabs metoprolol succinate 25 mg 25 mg PO DAILY BLOOD PRESSURE #90 02/20/24 Unknown Rx tablet,extended release 24 hr tabs spironolactone 25 mg tablet 25 mg PO DAILY BLOOD PRESSURE #90 05/10/24 Unknown Rx tabs furosemide 40 mg tablet (Lasix) 40 mg PO .COMPLEX #75 tabs 05/18/24 Unknown Rx Allergy/AdvReac Type Severity Reaction Status Date / Time peanut Allergy Itching Verified 05/19/24 15:23 levofloxacin (From Levaquin) AdvReac Rash Verified 05/19/24 15:23 Family History Brother Colon cancer Mother Hypertension Father Hypertension Other No pertinent family history Surgical History History of cardiac catheterization History of coronary artery stent placement (08/17/20) History of colonoscopy with polypectomy History of transurethral resection of prostate History of orchiectomy History of cataract surgery Social History Smoking Status: Never smoker alcohol intake: never substance use type: does not use caffeine: Yes Type: coffee Number of servings: 2 ROS ROS ED Constitutional Constitutional ED: Denies chills, fever(s) or sweats Eyes Eyes: Denies change in vision ENT ENT ED: Denies dysphagia or sore throat Cardiovascular Cardiovascular: Denies chest pain, leg edema, palpitations or racing heartbeat Respiratory/Chest Respiratory/Chest: Denies cough, dyspnea or dyspnea on exertion Gastrointestinal Gastrointestinal: Reports abdominal pain; Denies diarrhea, nausea or vomiting Genitourinary Genitourinary ED: Denies dysuria, hematuria or urinary frequency Musculoskeletal Musculoskeletal: Denies back pain, extremity pain or neck pain Integumentary Denies rash or wounds Neurologic Neurologic: Denies headache(s), paresthesias or weakness EXAM Physical Exam Const Vital Signs: 05/19/24 15:23 05/19/24 17:22 05/19/24 19:43 Temperature 96.4 F L 96.9 F L 97.5 F L Temperature Source Temporal Temporal Oral Pulse Rate 56 L 60 62 Respiratory Rate 18 16 16 Blood Pressure 110/59 L 104/65 121/60 H Blood Pressure Mean 76 78 80 Pulse Ox 99 100 100 Oxygen Delivery Method Room Air Room Air Room Air 05/19/24 21:00 05/19/24 23:00 Temperature Temperature Source Pulse Rate 56 L 60 Respiratory Rate 17 17 Blood Pressure 127/65 H 98/73 Blood Pressure Mean 85 81 Pulse Ox 96 95 Oxygen Delivery Method Room Air Room Air Positive well nourished and well developed General Appearance ED: well developed and NAD HEENT Reports moist mucous membranes normocephalic and atraumatic Eyes EOMs intact bilaterally and conjunctivae normal General Eye ED: Yes normal appearance of both eyes Neck no lymphadenopathy and supple General: Negative for tenderness Chest Wall Chest: Negative for tenderness Resp normal respiratory effort and normal air movement Effort and Inspection: symmetric chest movement; Negative for respiratory distress Cardio regular rate, regular rhythm and no murmurs Peripheral Pulses: pulses 2+ throughout GI normal to inspection, nondistended, normoactive bowel sounds GI Narrative: Tender right upper groin region, no bulging palpated. No rash. Negative Hernandez's or McBurney's tenderness. Palpation: Negative for guarding or rebound tenderness present Back/Spine no CVA tenderness and no thoracic nor lumbar tenderness Extremity normal to inspection General Extremety ED: Negative for edema or tenderness General Extremity: Negative for edema Neuro oriented x3 and no sensory deficits noted Sensorium / Orientation: awake and alert Skin no rashes or lesions noted and no wounds MDM MDM MDM Narrative Medical decision making narrative: Interventions / MDM: Differential diagnosis: Abdominal pain Diagnosis considered but do not suspect: Inguinal hernia however CT negative. Appendicitis however normal CT. My EKG interpretation: N/A Imaging independently reviewed and interpreted by myself: CT abdomen pelvis without contrast: No acute process noted. External documents reviewed: N/A Test considered but not ordered:N/A ED course: Patient declines any pain medications. Busy department therefore labs were already drawn by nursing. White count 7.7. Creatinine 1.62. Hemoglobin 12.9. Creatinine 1.15, 6 weeks ago. Will give gentle fluids. 2320: CT scan no acute process. On reevaluation patient states he had a bowel movement symptoms all resolved. There is no impaction noted on CT prior to his bowel movement. Clinically feeling better. Outpatient follow-up with For recheck labs. All questions were answered. Re-evaluation: stable Disposition discussed with patient/family/significant other: Patient and spouse Case discussed with consulting clinician: N/A This note was generated with [employer] dictation software. It may contain incorrect words, spelling, and punctuation that were not noted in checking the note before signing. Lab Data Attestation: I reviewed the patient's lab results. Labs: Laboratory Results - last 24 hr 05/19/24 05/19/24 16:42 21:45 WBC 7.7 RBC 4.23 L Hgb 12.9 L Hct 38.4 L MCV 90.8 MCH 30.5 MCHC 33.6 RDW Std Deviation 45.6 H RDW Coeff of Armani 13.6 Plt Count 200 MPV 10.3 Immature Gran % (Auto) 0.400 Neut % (Auto) 73.0 H Lymph % (Auto) 15.8 L [place] % (Auto) 8.9 Eos % (Auto) 1.0 Baso % (Auto) 0.9 Absolute Neuts (auto) 5.6 Absolute Lymphs (auto) 1.21 Nucleated RBC % 0 Sodium 131 L Potassium 4.0 Chloride 101 Carbon Dioxide 23.0 Anion Gap 7 BUN 35 H Creatinine 1.62 H Est GFR (MDRD) Af Amer 52 L Est GFR (MDRD) Non-Af 43 L BUN/Creatinine Ratio 21.6 H Glucose 99 Calcium 9.2 Urine Color Yellow Urine Clarity Clear Urine pH 6.5 Ur Specific [place] 1.010 Urine Protein Negative Urine Glucose (UA) Normal Urine Ketones Negative Urine Occult Blood Negative Urine Nitrite Negative Urine Bilirubin Negative Urine Urobilinogen Normal Ur Leukocyte Esterase Negative Urine RBC 0 SEEN Urine WBC 0 SEEN Ur Squamous Epith Cells 0 SEEN Urine Bacteria 0 SEEN Urine Mucus 0 SEEN Radiography Diagnostic Testing: Clinical Impression(s) from Imaging Studies Abdomen/Pelvis CT 05/19/24 21:38 IMPRESSION: No acute finding in the abdomen or pelvis. No inflammatory changes. No hydronephrosis or nephrolithiasis. Cholelithiasis. No findings to suggest cholecystitis. Evidence of prior granulomatous disease. Electronically Signed: Andres Song MD at 22:13 EDT , Discharge Plan Triage Chief Complaint: Abd Pain ED Provider: Ryan Huizar Dx/Rx/DC Orders Clinical Impression: Abdominal pain, Acute renal insufficiency Instructions: Abdominal Pain, ED Renal Insufficiency Prescriptions: No Action PreserVision AREDS-2 [id number] nr-[id number]-mg capsule 1 tab PO DAILY Rx Instructions: administer with meals cholecalciferol (vitamin D3) 25 mcg (1,000 unit) capsule 25 mcg PO DAILY tamsulosin 0.4 mg capsule 0.4 mg PO DAILY finasteride 5 mg tablet 5 mg PO DAILY [id number]-zhzh-kucvh-oreg-capry 100 mg-150 mg- 50 mg-150 mg capsule 1 cap PO DAILY nitroglycerin 0.4 mg tablet, sublingual 0.4 mg SUBLINGUAL Q5-15M PRN (Reason: CHEST PAIN ) Qty: 25 3RF Rx Instructions: do not exceed 3 doses per episode coenzyme Q10 [CoQ-10] 100 mg capsule 100 mg PO DAILY atorvastatin [Lipitor] 20 mg tablet 20 mg PO DAILY Qty: 90 3RF aspirin [Adult Aspirin Regimen] 81 mg tablet,delayed release (DR/EC) 81 mg PO DAILY albuterol sulfate 2.5 mg /3 mL (0.083 %) solution for nebulization 2.5 mg inhalation Q4H PRN (Reason: shortness of breath or wheezing) Qty: 75 1RF Eliquis 5 mg tablet 5 mg PO BID Qty: 180 4RF metoprolol succinate 25 mg tablet extended release 24 hr 25 mg PO DAILY Qty: 90 3RF spironolactone 25 mg tablet 25 mg PO DAILY Qty: 90 3RF furosemide [Lasix] 40 mg tablet 40 mg PO .COMPLEX Qty: 75 4RF Rx Instructions: 40 mg orally; 60mg in the AM and 40mg in the PM Primary Care Provider: Daphne Woods Referrals: Daphne Woods MD [Primary Care Provider] - 1 Week Activity Restrictions/Additional Instructions: Your CT scan abdomen pelvis normal. Your creatinine 1.62, previously 1.15. Status post IV fluids in the ED. Symptoms improved after bowel movement. Monitor symptoms. Follow-up with your doctor to recheck labs. Print Language: Swedish Disposition Disposition: Home, Self Care Discharge Date/Time: 05/19/24 23:39
[2024-05-19 21:52] LABS: Bacteria 0 SEEN /hpf (None Seen); Mucous, Urine 0 SEEN /hpf (<or=2+); Red Blood Cells-Urine 0 SEEN /hpf (0-5); Squamous Epithelial Cells - UA 0 SEEN /hpf (0-5); White Blood Cells 0 SEEN /hpf (0-5)
[2024-05-19 21:57] LABS: Color, Urine Yellow (Yellow); Glucose, Dipstick Normal (Normal); Ketone-Dipstick Negative (Negative); Leukocyte Esterase-Dipstick Negative /ul (Negative); Nitrite-Dipstick Negative (Negative); Occult Blood-Urine Negative /ul (Negative); Protein-Dipstick Negative (Negative); Urine Bilirubin Dipstick Negative (Negative); Urine Clarity Clear (Clear); Urine Urobilinogen Normal (Normal); Urine pH 6.5 (5.0 - 8.0)
[2024-05-19 23:00] VITALS: BP 98/73; PULSE 60; RESP 17; O2SAT 95
[2024-05-19] MEDS: 0.9% Normal Saline (500mL Bag) 500 ML 999 ML IV (23:17)
--- NOTE | 2024-05-19 23:38 | ED.RN ---
ready for dc- did not finish IV fluid bag. voiding multiple times. offered water.
[2024-05-19 23:39] VITALS: BP 118/82; PULSE 60; RESP 20
== END 2024-05-19 23:39 | disposition home or self-care (01) ==
PROVIDERS: Emergency Provider Emergency Medicine; PCP Internal Medicine; Visit Provider Emergency Medicine
DX: R10.9 Unspecified abdominal pain (principal); I11.0 Hypertensive heart disease with heart failure; I50.32 Chronic diastolic (congestive) heart failure; J44.9 Chronic obstructive pulmonary disease, unspecified; I48.0 Paroxysmal atrial fibrillation; I25.10 Atherosclerotic heart disease of native coronary artery without angina pectoris; E78.00 Pure hypercholesterolemia, unspecified; N28.9 Disorder of kidney and ureter, unspecified; Z79.01 Long term (current) use of anticoagulants; Z79.899 Other long term (current) drug therapy
CPT/HCPCS: 74176; 80048; 81001; 85025; 99283; J7040; A4216

== ENCOUNTER → 2024-06-03 | Outpatient (CLI) | payer MEDICARE, OTHER, SELFPAY ==
[2023-09-26 15:39] VITALS: BMI 35.6
[2024-06-03 16:05] LABS: Anion Gap 6 (5-15); BUN 31 mg/dL (7-18); Calcium,Total 9.1 mg/dL (8.5-10.1); Chloride 100 mmol/L (98-107); Creatinine, Serum 1.29 mg/dL (0.70-1.30); EST Glomerular Filtration Rate 56 mL/min (>60); Est Glom Filt Rate - Afr Amer 68 mL/min (>60); Glucose 94 mg/dL (74-106); Potassium 4.2 mmol/L (3.5-5.1); Sodium Level 131 mmol/L (136-145)
== END | disposition home or self-care (01) ==
LOC: LAB 14:40
PROVIDERS: PCP Internal Medicine; Referring Provider Nurse Practitioner Family; Visit Provider Nurse Practitioner Family
DX: R06.00 Dyspnea, unspecified (principal); E78.5 Hyperlipidemia, unspecified; Z95.5 Presence of coronary angioplasty implant and graft
CPT/HCPCS: 36415; 80048

== ENCOUNTER 2024-07-30 14:57 | Inpatient (IN) | payer MEDICARE, OTHER, SELFPAY ==
[2023-09-26 15:39] VITALS: BMI 35.6
[2024-07-30 14:58] VITALS: BP 117/60; PULSE 86; RESP 20; TEMP 36.8; O2SAT 95; BMI 38.1
--- NOTE | 2024-07-30 15:32 | RAD_ITS ---
INDICATION: cough EXAMINATION/TECHNIQUE: X-RAY - XR Chest 2 Views COMPARISON: 04/07/2024. FINDINGS: Slight increase in interstitial markings. Tortuous and calcified thoracic aorta. The heart is mildly enlarged. No pleural effusion or pneumothorax. Degenerative changes of the thoracic spine. RAD/Chest PA and Lateral IMPRESSION: Slight increase in interstitial markings may represent edema and/or infection. Electronically Signed: Jef Moran MD at 17:30 EST ,
--- NOTE | 2024-07-30 15:32 | EKG12_ITS ---
Test Reason : GEN ILLNESS Blood Pressure : */* mmHG Vent. Rate : 77 BPM Atrial Rate : * BPM P-R Int : * ms QRS Dur : 142 ms QT Int : 434 ms P-R-T Axes : * -87 42 degrees QTcB Int : 491 ms Atrial fibrillation Left axis deviation non specific intraventricular conduction-block can not rule out Anterolateral infarct (cited on or before 23-Sep-2023) Abnormal ECG Reconfirmed by Lele Rabago ([id number]), purchasing expeditor MAIKEL WHEATLEY ([id number]) on 08/02/2024 10:25:24 AM Referred By: Confirmed By: Lele Rabago
--- NOTE | 2024-07-30 15:32 | CT_ITS ---
STUDY: CT BRAIN WITHOUT CONTRAST REASON FOR EXAM: Male, 89 years old. confusion RADIATION DOSAGE (If Supplied By Facility): CTDIvol = ( 44.99 ) mGy, DLP = ( 863.60 ) mGycm TECHNIQUE: Transaxial CT imaging of the brain was performed without administration of intravenous contrast material. Individualized dose optimization techniques were used for this CT. COMPARISON: No relevant priors. FINDINGS: Normal soft tissue structures. Normal calvarium. Calcification of the cavernous carotids Atrophy and moderate periventricular white matter ischemic changes. Normal basal ganglia and thalami. Normal brainstem. Normal cerebellum. There is no intracranial hemorrhage. There are no findings of an acute ischemic infarction. There is moderate mucosal thickening of the maxillary sinuses bilaterally There are postsurgical changes of the orbits bilaterally CT/Brain/Head without Contrast IMPRESSION: Atrophy and moderate periventricular white matter ischemic change. No acute bleed. If concern for acute infarct MRI recommended Electronically Signed: Elijah Corral MD at 16:51 EST Reading Location ID and State: [facility] / [place] Tel , Service support ,
--- NOTE | 2024-07-30 15:42 | EX.ED.DYSGE1 ---
HPI History of Present Illness Chief Complaint: General Illness Informant: patient Narrative Narrative: Brought in by EMS reported concern increasing weakness and confusion. Patient was diagnosed COVID around Bea that over 2 weeks ago. He reported a productive cough that is improving. He had a fall 2 weeks ago was seen at outside ED reported that CT scan head was negative. They had chest x-ray that was negative. Denies vomiting or diarrhea denies any urinary symptoms. He ambulates both with a cane and a walker, reports to me he has been using this over the last 2 days. He has no additional falls. He states he has not had COVID before. History of paroxysmal atrial fibrillation on Eliquis. [facility] Medical History (Updated 07/30/24 @ 18:[address] Ryan Huizar DO) Depression Congestive heart failure (CHF) Cellulitis of leg without foot, left UTI (urinary tract infection) Smoker Chest pain Atrial fibrillation Anemia Skin tear High cholesterol Shortness of breath on exertion History of echocardiogram History of stress test Olecranon bursitis, right elbow Strain of tendon of right rotator cuff Insect bite of hand with infection Wears glasses Wears hearing aid Wears partial dentures Rash Arthritis Chewing tobacco use Non-smoker History of edema Cardiology follow-up encounter Syncope and collapse Persistent atrial fibrillation Epistaxis Chronic diastolic (congestive) heart failure 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 Hyperlipidemia Essential (primary) hypertension Obstructive sleep apnea Hypersomnia Hypoxia Renal cyst Diverticulitis Leg swelling Hiatal hernia COPD (chronic obstructive pulmonary disease) Home Medications ?Medication ?Instructions ?Recorded ?Last Taken ?Type cholecalciferol (vitamin D3) 25 25 mcg PO DAILY SUPPLEMENT 06/27/20 09/22/23 History mcg (1,000 unit) capsule finasteride 5 mg tablet 5 mg PO DAILY PROSTATE 06/03/22 09/22/23 History nitroglycerin 0.4 mg sublingual 0.4 mg sublingual Q5-15M PRN CHEST 10/31/22 Unknown Rx tablet PAIN #25 tabs turmeric 100 mg-nomi 150 1 cap PO DAILY 10/31/22 09/22/23 History mg-olive 50 mg-oreg 150 mg-capryl capsule coenzyme Q10 100 mg capsule 100 mg PO DAILY SUPPLEMENT 04/29/23 09/22/23 History (CoQ-10) aspirin 81 mg tablet,delayed 81 mg PO DAILY HEART HEALTH 09/23/23 09/22/23 History release (Adult Aspirin Regimen) atorvastatin 20 mg tablet (Lipitor) 20 mg PO DAILY CHOLESTEROL #90 12/01/23 Unknown Rx tabs metoprolol succinate 25 mg 25 mg PO DAILY BLOOD PRESSURE #90 02/20/24 Unknown Rx tablet,extended release 24 hr tabs spironolactone 25 mg tablet 25 mg PO DAILY BLOOD PRESSURE #90 05/26/24 Unknown Rx tabs apixaban 5 mg tablet (Eliquis) 5 mg PO BID BLOOD THINNER #180 06/11/24 Unknown Rx tabs vit C 250 mg-vit E 90 mg-zinc 40 1 tab PO BID supplement 06/14/24 Unknown History mg-copper 1 ci-lsncuu-ecqywr capsule (PreserVision AREDS-2) furosemide 40 mg tablet (Lasix) 40 mg PO BID #180 tabs 07/16/24 Unknown Rx albuterol sulfate 2.5 mg/3 mL 2.5 mg (3 mL) inhalation Q4H PRN 07/26/24 Unknown Rx (0.083 %) solution for nebulization shortness of breath or wheezing #75 mL fluticasone 100 mcg-salmeterol 50 1 inh inhalation BID #60 ea 07/26/24 Unknown Rx mcg/dose blistr powdr for inhalation Allergy/AdvReac Type Severity Reaction Status Date / Time peanut Allergy Itching Verified 07/30/24 15:01 levofloxacin (From Levaquin) AdvReac Rash Verified 07/30/24 15:01 Family History Brother Colon cancer Mother Hypertension Father Hypertension Other No pertinent family history Surgical History History of cardiac catheterization History of coronary artery stent placement (08/17/20) History of colonoscopy with polypectomy History of transurethral resection of prostate History of orchiectomy History of cataract surgery Social History Smoking Status: Never smoker alcohol intake: never substance use type: does not use caffeine: Yes Type: coffee Number of servings: 2 ROS ROS ED Constitutional Constitutional ED: Denies chills, fever(s) or sweats ENT ENT ED: Denies sore throat Cardiovascular Cardiovascular: Denies chest pain, leg edema, palpitations or racing heartbeat Respiratory/Chest Respiratory/Chest: Denies cough, dyspnea or dyspnea on exertion Gastrointestinal Gastrointestinal: Denies abdominal pain, diarrhea, nausea or vomiting Genitourinary Genitourinary ED: Denies dysuria, hematuria or urinary frequency Musculoskeletal Musculoskeletal: Denies back pain, extremity pain or neck pain Integumentary Denies rash or wounds Neurologic Neurologic: Reports weakness; Denies headache(s) or paresthesias EXAM Physical Exam Const Vital Signs: 07/30/24 14:58 07/30/24 15:03 07/30/24 16:57 Temperature 98.3 F Temperature Source Oral Pulse Rate 86 82 Respiratory Rate 20 H 26 H Respiratory Effort Normal Non-Labored Respiratory Pattern Normal Blood Pressure 117/60 111/70 Blood Pressure Mean 79 83 Pulse Ox 95 99 Oxygen Delivery Method Room Air Room Air 07/30/24 17:58 07/30/24 18:00 Temperature 97.8 F Temperature Source Pulse Rate 78 72 Respiratory Rate 16 22 H Respiratory Effort Respiratory Pattern Blood Pressure 110/69 99/52 L Blood Pressure Mean 82 67 Pulse Ox 96 98 Oxygen Delivery Method Room Air Positive well nourished and well developed General Appearance ED: well developed and NAD HEENT Reports dry mucous membranes HEENT Narrative: Mild dry mucosal membranes. normocephalic and atraumatic Mouth ED: Yes dry mucous membranes Mouth: dry mucous membranes Eyes General Eye ED: Yes normal appearance of both eyes Neck full ROM Chest Wall Chest: Negative for tenderness Resp normal respiratory effort and normal air movement Effort and Inspection: symmetric chest movement; Negative for respiratory distress Cardio regular rate and no murmurs Rhythm: abnormal rhythm Peripheral Pulses: pulses 2+ throughout GI normal to inspection, nondistended, normoactive bowel sounds and non-tender Palpation: Negative for guarding or rebound tenderness present Extremity normal to inspection General Extremety ED: Negative for edema or tenderness General Extremity: Negative for edema Neuro no sensory deficits noted Neuro Narrative: Alert to person and place cannot tell me the month or year. Sensorium / Orientation: awake and alert Skin no rashes or lesions noted and no wounds MDM MDM MDM Narrative Medical decision making narrative: Interventions / MDM: Differential diagnosis: Acute encephalopathy, recent COVID, hypoxia, chronic atrial fibrillation, CVA Diagnosis considered but do not suspect: Intracranial hemorrhage however CT negative. My EKG interpretation: Rate controlled A-fib rate of 77, normal no ST changes or T wave changes. Imaging independently reviewed and interpreted by myself: CT brain: No acute process. 2 view chest x-ray: Increased interstitial marking Edema versus infiltrate. External documents reviewed: Lab work confirmed COVID July 12, 2024 Test considered but not ordered:N/A ED course: Vital signs stable afebrile slight dry mucosal membranes. Currently is alert and oriented times 2. Will check EKG, labs urine. Will obtain chest x-ray and CT brain for further evaluation. IV fluids given due to dry mucosal membranes. 1649: Patient lab work white count 11 hemoglobin 12.2 creatinine 1.3 BUN 35 sodium 136 potassium 4.3. Chest x-ray with reported interstitial markings edema versus infiltrate. CT brain negative urine only has 25 leukocytes urine culture sent. Spouse currently bedside, diagnosis COVID confirmed now clinic July 12 he had a fall on the seen at [facility] CT negative. No follow-up since then. He had more confusion the last few days confirms his cough is improving. He is not his baseline. She also reports there is more confusion today with trouble feeding himself right upper extremity. She described any ataxic symptoms. He has been compliant with his Eliquis he is rate controlled A-fib, possible stroke is in the differential. He is also ambulated was able used a walker pulse ox dropped down to 87%, there is no respiratory distress. This improved with rest. I will speak with hospitalist for admission. Spoke with Dr. Meza for admission to PCU. Re-evaluation: stable Disposition discussed with patient/family/significant other: Patient and family Case discussed with consulting clinician: Hospitalist This note was generated with [employer] dictation software. It may contain incorrect words, spelling, and punctuation that were not noted in checking the note before signing. Lab Data Attestation: I reviewed the patient's lab results. Labs: Laboratory Results - last 24 hr 07/30/24 07/30/24 15:10 16:50 WBC 11.3 H RBC 3.93 L Hgb 12.2 L Hct 34.9 L MCV 88.8 MCH 31.0 MCHC 35.0 RDW Std Deviation 41.1 RDW Coeff of Armani 12.6 Plt Count 188 MPV 10.7 Immature Gran % (Auto) 0.600 Neut % (Auto) 88.8 H Lymph % (Auto) 4.7 L [place] % (Auto) 5.4 Eos % (Auto) 0.1 Baso % (Auto) 0.4 Absolute Neuts (auto) 10.0 H Absolute Lymphs (auto) 0.53 L Nucleated RBC % 0 Sodium 136 Potassium 4.3 Chloride 104 Carbon Dioxide 28.0 Anion Gap 4 L BUN 35 H Creatinine 1.30 Estim Creat Clear Calc 52.09 Est GFR (MDRD) Af Amer 67 Est GFR (MDRD) Non-Af 56 L BUN/Creatinine Ratio 26.9 H Glucose 90 Calcium 8.8 Total Bilirubin 0.40 AST 14 L ALT 10 L Alkaline Phosphatase 113 Total Protein 6.8 Albumin 3.0 L Globulin 3.8 Albumin/Globulin Ratio 0.8 L Urine Color Yellow Urine Clarity Clear Urine pH 6.5 Ur Specific [place] 1.010 Urine Protein 15 H Urine Glucose (UA) Normal Urine Ketones Negative Urine Occult Blood 10 H Urine Nitrite Negative Urine Bilirubin Negative Urine Urobilinogen 4 H Ur Leukocyte Esterase 25 H Urine RBC 0-5 SEEN Urine WBC 0-5 SEEN Ur Squamous Epith Cells 0-5 SEEN Urine Bacteria 0 SEEN Urine Mucus 0 SEEN Radiography Diagnostic Testing: Clinical Impression(s) from Imaging Studies Brain CT 07/30/24 15:32 IMPRESSION: Atrophy and moderate periventricular white matter ischemic change. No acute bleed. If concern for acute infarct MRI recommended Electronically Signed: Elijah Corral MD at 16:51 EST , Chest X-Ray 07/30/24 15:32 IMPRESSION: Slight increase in interstitial markings may represent edema and/or infection. Electronically Signed: Jef Moran MD at 17:30 EST , Discharge Plan Dx/Rx/DC Orders Clinical Impression: Encephalopathy acute, Chronic anticoagulation, Hypoxia, Atrial fibrillation with normal ventricular rate, Ataxia Disposition Disposition: Acute Care [facility]
[2024-07-30] MEDS: 0.9% Normal Saline (500mL Bag) 500 ML 1000 ML IV (15:48)
--- NOTE | 2024-07-30 15:48 | ED.RN ---
no old ekg
[2024-07-30 15:56] LABS: Absolute Lymphocyte Count 0.53 X10^3/uL (0.83-4.51); Basophil# 0.04 X10^3/uL; Basophil% 0.4 % (0-1); Eosinophil# 0.01 X10^3/uL; Eosinophils% 0.1 % (0-5); Hematocrit 34.9 % (40-54); Hemoglobin 12.2 g/dL (13.0-16.5); Lymphocyte # 0.53 X10^3/ul (0.83-4.51); Lymphocyte % 4.7 % (19-41); Mean Corpuscular Volume 88.8 fL (80-94); Mean Platelet Vol. 10.7 fl (6.2-12.0); Monocyte# 0.61 X10^3/uL; Monocyte% 5.4 % (0-10); NRBC Flagged by Analyzer 0 % (0-5); Neutrophil # 10.01 X10^3/uL (2.7-7.7); Neutrophil % 88.8 % (47-70); POSITIVE DIFFERENTIAL YES; Platelet Count 188 K/mm3 (150-450); RBC Distribution Width CV 12.6 % (11.6-14.6); RBC Distribution Width SD 41.1 fl (35.1-43.9); Red Blood Count 3.93 M/mm3 (4.6-6.2); White Blood Count 11.3 K/mm3 (4.4-11.0)
[2024-07-30 16:20] LABS: ALB/GLOB Ratio 0.8 RATIO (0.9-2.4); AST(SGOT) 14 U/L (15-37); Alanine Aminotransfer ALT/SGPT 10 U/L (16-61); Alkaline Phosphatase 113 U/L (45-117); Anion Gap 4 (5-15); BUN 35 mg/dL (7-18); BUN/Creat Ratio 26.9 RATIO (10-20); Calcium,Total 8.8 mg/dL (8.5-10.1); Chloride 104 mmol/L (98-107); EST Glomerular Filtration Rate 56 mL/min (>60); Est Glom Filt Rate - Afr Amer 67 mL/min (>60); Estimated Creatinine Clearance 52.09 ml/min; Globulin 3.8 g/dL (2.2-4.2); Glucose 90 mg/dL (74-106); Potassium 4.3 mmol/L (3.5-5.1); Protein, Total 6.8 g/dL (6.4-8.2); Sodium Level 136 mmol/L (136-145)
[2024-07-30 16:57] VITALS: BP 111/70; PULSE 82; RESP 26; O2SAT 99
[2024-07-30 17:02] LABS: Bacteria 0 SEEN /hpf (None Seen); Mucous, Urine 0 SEEN /hpf (<or=2+)
[2024-07-30 17:04] LABS: Color, Urine Yellow (Yellow); Glucose, Dipstick Normal (Normal); Ketone-Dipstick Negative (Negative); Leukocyte Esterase-Dipstick 25 /ul (Negative); Nitrite-Dipstick Negative (Negative); Occult Blood-Urine 10 /ul (Negative); Protein-Dipstick 15 mg/dl (Negative); Urine Bilirubin Dipstick Negative (Negative); Urine Clarity Clear (Clear); Urine Urobilinogen 4 mg/dl (Normal); Urine pH 6.5 (5.0 - 8.0)
[2024-07-30 17:26] LABS: Red Blood Cells-Urine 0-5 SEEN /hpf (0-5); Squamous Epithelial Cells - UA 0-5 SEEN /hpf (0-5); White Blood Cells 0-5 SEEN /hpf (0-5)
[2024-07-30 17:58] VITALS: BP 110/69; PULSE 78; RESP 16; TEMP 36.6; O2SAT 96
[2024-07-30 18:00] VITALS: BP 99/52; PULSE 72; RESP 22; O2SAT 98
--- NOTE | 2024-07-30 18:52 | PCM.HP.STD ---
HPI - General General Date of Admission: 07/30/24 Date of Service: 07/30/24 Chief Complaint: Confusion, Dyspnea, Recent COVID, Ataxia. HPI Narrative The patient is an 89 y/o M w/ PMHx: Obesity, PAF, COPD, HTN, HLD, Chronic normocytic anemia, HFpEF, BPH with obstructive pathology, CKD stage III unclear subtype per GFR trending, CHUCHO not using PAP therapy, Former tobacco use who presents to the [facility] ED on 07/30/2024 with history of URI type symptoms with cough, congestion dyspnea with diagnosis of COVID on 07/12/2024 with progressively worsening increased fatigue, malaise with ongoing cough however he seems more short of breath especially with exertion and noted that he seemed confused and recently has had difficulty feeding himself secondary to severe shaking/ataxia of his right upper extremity and some concern for right upper extremity weakness concurrently prompting family to bring him in for evaluation. They do note that his had decreased oral intake in addition. Workup in the ED included T98.3, heart rate 86, BP initially 117/60, respiratory rate 20, 95% on room air however most recent repeat vital signs included BP 99/52, respiratory rate 22, in the ED oxygenation ambulatory trial performed and the patient desaturated to 87% requiring start of 2L NC, CBC with WBC 11.3, human 12.2, MCV 88.8, platelet 188 with left shift and lymphopenia, CMP with BUN/creatinine 35/1.30, GFR 56, hepatic profile not marked appearing, urinalysis not marked appearing, CT brain with atrophy and moderate periventricular white matter ischemic changes with no acute intracranial findings, chest x-ray with slightly increased interstitial markings concerning for possible edema or infection, EKG with atrial fibrillation rate controlled. [facility] Medical History Depression Congestive heart failure (CHF) Cellulitis of leg without foot, left UTI (urinary tract infection) Smoker Chest pain Atrial fibrillation Anemia Skin tear High cholesterol Shortness of breath on exertion History of echocardiogram History of stress test Olecranon bursitis, right elbow Strain of tendon of right rotator cuff Insect bite of hand with infection Wears glasses Wears hearing aid Wears partial dentures Rash Arthritis Chewing tobacco use Non-smoker History of edema Cardiology follow-up encounter Syncope and collapse Persistent atrial fibrillation Epistaxis Chronic diastolic (congestive) heart failure Atherosclerotic heart disease of [place] coronary artery without angina pectoris BPH with urinary obstruction Hyperlipidemia Essential (primary) hypertension Obstructive sleep apnea Hypersomnia Hypoxia Renal cyst Diverticulitis Leg swelling Hiatal hernia COPD (chronic obstructive pulmonary disease) Home Medications ?Medication ?Instructions ?Recorded ?Last Taken ?Type cholecalciferol (vitamin D3) 25 25 mcg PO DAILY SUPPLEMENT 06/27/20 09/22/23 History mcg (1,000 unit) capsule finasteride 5 mg tablet 5 mg PO DAILY PROSTATE 06/03/22 09/22/23 History nitroglycerin 0.4 mg sublingual 0.4 mg sublingual Q5-15M PRN CHEST 10/31/22 Unknown Rx tablet PAIN #25 tabs turmeric 100 mg-nomi 150 1 cap PO DAILY 10/31/22 09/22/23 History mg-olive 50 mg-oreg 150 mg-capryl capsule coenzyme Q10 100 mg capsule 100 mg PO DAILY SUPPLEMENT 04/29/23 09/22/23 History (CoQ-10) aspirin 81 mg tablet,delayed 81 mg PO DAILY HEART HEALTH 09/23/23 09/22/23 History release (Adult Aspirin Regimen) atorvastatin 20 mg tablet (Lipitor) 20 mg PO DAILY CHOLESTEROL #90 12/01/23 Unknown Rx tabs metoprolol succinate 25 mg 25 mg PO DAILY BLOOD PRESSURE #90 02/20/24 Unknown Rx tablet,extended release 24 hr tabs spironolactone 25 mg tablet 25 mg PO DAILY BLOOD PRESSURE #90 05/26/24 Unknown Rx tabs apixaban 5 mg tablet (Eliquis) 5 mg PO BID BLOOD THINNER #180 06/11/24 Unknown Rx tabs vit C 250 mg-vit E 90 mg-zinc 40 1 tab PO BID supplement 06/14/24 Unknown History mg-copper 1 [id number] capsule (PreserVision AREDS-2) furosemide 40 mg tablet (Lasix) 40 mg PO BID #180 tabs 07/16/24 Unknown Rx albuterol sulfate 2.5 mg/3 mL 2.5 mg (3 mL) inhalation Q4H PRN 07/26/24 Unknown Rx (0.083 %) solution for nebulization shortness of breath or wheezing #75 mL fluticasone 100 mcg-salmeterol 50 1 inh inhalation BID #60 ea 07/26/24 Unknown Rx mcg/dose blistr powdr for inhalation Allergy/AdvReac Type Severity Reaction Status Date / Time peanut Allergy Itching Verified 07/30/24 15:01 levofloxacin (From Levaquin) AdvReac Rash Verified 07/30/24 15:01 Family History Brother Colon cancer Mother Hypertension Father Hypertension Other No pertinent family history Surgical History History of cardiac catheterization History of coronary artery stent placement (08/17/20) History of colonoscopy with polypectomy History of transurethral resection of prostate History of orchiectomy History of cataract surgery Social History (Updated 07/30/24 @ 19:[address] Olivia Meza MD) household members: spouse Smoking Status: Former smoker alcohol intake: never substance use type: does not use caffeine: Yes Type: coffee Number of servings: 2 ROS ROS Narrative Admission Review of Systems: CONSTITUTIONAL: No weight loss, fever, chills, + weakness or fatigue. HEENT: + Congestion. Eyes: No visual loss, blurred vision, double vision or yellow sclerae. Ears, Nose, Throat: No hearing loss, sneezing, sore throat. SKIN: No rash or itching, lesions, wounds. CARDIOVASCULAR: + Mild chronic distal edema unchanged and not worsened. No chest pain, chest pressure or chest discomfort, palpitations, orthopnea, syncopal events. RESPIRATORY: + Short of breath with ongoing cough not markedly productive with intermittent wheezing. No hemoptysis. GASTROINTESTINAL: + Decreased appetite. No nausea, vomiting or diarrhea, abdominal pain, melena, BRBPR. GENITOURINARY: No dysuria, frequency, urgency or retention. NEUROLOGICAL: + Increased confusion, concern for right upper extremity weakness/ataxia. No headache, dizziness, syncope, paralysis, ataxia, numbness or tingling in the extremities, change in bowel or bladder control, seizure. MUSCULOSKELETAL: + muscle, back pain, joint pain or stiffness. HEMATOLOGIC: + Chronic anemia, easy bleeding/bruising. LYMPHATICS: No enlarged nodes. No history of splenectomy. PSYCHIATRIC: No history of depression or anxiety. ENDOCRINOLOGIC: No reports of sweating, cold or heat intolerance. No polyuria or polydipsia. ALLERGIES: No history of asthma, hives, eczema or rhinitis. Vital Signs Vital Signs Vital Signs: 07/30/24 14:58 07/30/24 15:03 07/30/24 16:57 Temperature 98.3 F Temperature Source Oral Pulse Rate 86 82 Respiratory Rate 20 H 26 H Respiratory Effort Normal Non-Labored Respiratory Pattern Normal Blood Pressure 117/60 111/70 Blood Pressure Mean 79 83 Pulse Ox 95 99 Oxygen Delivery Method Room Air Room Air 07/30/24 17:58 07/30/24 18:00 Temperature 97.8 F Temperature Source Pulse Rate 78 72 Respiratory Rate 16 22 H Respiratory Effort Respiratory Pattern Blood Pressure 110/69 99/52 L Blood Pressure Mean 82 67 Pulse Ox 96 98 Oxygen Delivery Method Room Air Weight Weight: 265 lb 10.512 oz Body Mass Index (BMI) 38.1 Physical Exam Narrative Physical Examination: General: Awake, alert, oriented to self, place, family in the room but they do note that he is been confused and not himself, seated upright in the ED bed, does appear dyspneic when he tries to talk with increased work of breathing and some accessory muscle usage. Skin: Normal color, normal turgor, no icterus, no cyanosis except occasional stage ecchymoses, abrasion. HEENT: AT/NC, EOMI, PERRLA, moderately dry MM, no carotid bruits, no markedly elevated JVD noted. Lungs: Severely diffusely diminished, greater bases, respiratory rate increased, some accessory muscle usage, very distant expiratory wheezing, no marked rales or rhonchi. Heart: Irregular, rate controlled; no gallop, rub audible. Abdomen: Soft, obese, NTTP, ND, mildly hyperactive BS, no HSM. Extremities: No cyanosis, no clubbing, mild ankle not markedly pitting edema which is chronic they note. Neurological: Patient awake, alert, oriented as noted, cognitive function decreased from baseline per discussion with family, pupils equally reactive to light and accommodation, cranial nerves grossly normal, moving all 4 extremities, some noted right upper extremity ataxia but otherwise finger-nose and [id number] appropriate but very debilitated, strength severely globally decreased, sensation primarily intact, equivocal Babinski Psychiatric: Affect appears fatigued, ill-appearing no acute evidence of depressive or anxiety feelings. Results Lab / Micro Data 07/30/24 15:10 07/30/24 15:10 Labs: Laboratory Results - last 24 hr 07/30/24 15:10: WBC 11.3 H, RBC 3.93 L, Hgb 12.2 L, Hct 34.9 L, MCV 88.8, MCH 31.0, MCHC 35.0, RDW Std Deviation 41.1, RDW Coeff of Armani 12.6, Plt Count 188, MPV 10.7, Immature Gran % (Auto) 0.600, Neut % (Auto) 88.8 H, Lymph % (Auto) 4.7 L, Todd % (Auto) 5.4, Eos % (Auto) 0.1, Baso % (Auto) 0.4, Absolute Neuts (auto) 10.0 H, Absolute Lymphs (auto) 0.53 L, Nucleated RBC % 0, Sodium 136, Potassium 4.3, Chloride 104, Carbon Dioxide 28.0, Anion Gap 4 L, BUN 35 H, Creatinine 1.30, Estim Creat Clear Calc 52.09, Est GFR (MDRD) Af Amer 67, Est GFR (MDRD) Non-Af 56 L, BUN/Creatinine Ratio 26.9 H, Glucose 90, Calcium 8.8, Total Bilirubin 0.40, AST 14 L, ALT 10 L, Alkaline Phosphatase 113, Total Protein 6.8, Albumin 3.0 L, Globulin 3.8, Albumin/Globulin Ratio 0.8 L 07/30/24 16:50: Urine Color Yellow, Urine Clarity Clear, Urine pH 6.5, Ur Specific [place] 1.010, Urine Protein 15 H, Urine Glucose (UA) Normal, Urine Ketones Negative, Urine Occult Blood 10 H, Urine Nitrite Negative, Urine Bilirubin Negative, Urine Urobilinogen 4 H, Ur Leukocyte Esterase 25 H, Urine RBC 0-5 SEEN, Urine WBC 0-5 SEEN, Ur Squamous Epith Cells 0-5 SEEN, Urine Bacteria 0 SEEN, Urine Mucus 0 SEEN Imaging Radiology Impression Brain CT 07/30/24 15:32 IMPRESSION: Atrophy and moderate periventricular white matter ischemic change. No acute bleed. If concern for acute infarct MRI recommended Electronically Signed: Elijah Corral MD at 16:51 EST Reading Location ID and State: [facility] / [place] Tel , Service support , Chest X-Ray 07/30/24 15:32 IMPRESSION: Slight increase in interstitial markings may represent edema and/or infection. Electronically Signed: Jef Moran MD at 17:30 EST , Assessment & Plan Assessment/Plan (1) Encephalopathy acute: PLAN: Plan The patient is an 89 y/o M w/ PMHx: Obesity, PAF, COPD, HTN, HLD, Chronic normocytic anemia, HFpEF, BPH with obstructive pathology, CKD stage III unclear subtype per GFR trending, CHUCHO not using PAP therapy, Former tobacco use who presents to the [facility] ED on 07/30/2024 with history of URI type symptoms with cough, congestion dyspnea with diagnosis of COVID on 07/12/2024 with progressively worsening increased fatigue, malaise with ongoing cough however he seems more short of breath especially with exertion and noted that he seemed confused and recently has had difficulty feeding himself secondary to severe shaking/ataxia of his right upper extremity and some concern for right upper extremity weakness concurrently prompting family to bring him in for evaluation. They do note that his had decreased oral intake in addition. #1. Acute Encephalopathy, suspect multifactorial secondary to #2 as well as Acute Hypoxia secondary to recent acute COVID-19 viral illness with concern for possible now superimposed bacterial pneumonia complicated by Underlying Acute on Chronic COPD Exacerbation: Given also concern for #2 will admit to PCU, will maintain on oxygen with wean to room air as tolerated, will maintain on ATC budesonide therapy given PAF history, PRN albuterol, will initiate on IV solumedrol given notably decreased air movement and maintain on IV Rocephin and Azithromycin pending sputum culture with induction, urine antigens, full respiratory viral panel as well as procalcitonin. If procalcitonin is completely normal and further workup more concerning for primarily COVID is etiology certainly could de-escalate off antibiotics. BNP will also be obtained but patient has not mentioned any significant orthopnea or weight gain. In addition patient with hypotension in the ED thus at this point will judiciously hydrate unless further work-up concerning for more overload type picture. #2. Altered mental status/confusion possibly multifactorial, ataxia especially right upper extremity, weakness concerning for possible TIA/CVA: Will obtain MRI Brain, CTA head and neck, ECHO, PT/OT/Speech/Nutrition evaluation per protocol. Upon presentation patient low BP in the ED, thus will hold HTN regimen, administer IVFs to improve perfusion, continue eliquis, continue statin therapy, maintain on fall and aspiration precautions, will obtain Mag, TSH, FLP, HgbA1c. Pending workup may consider neurology consultation. #3. Hypertension: In the ED patient with low normal blood pressure, will temporally hold hypertensive regimen, judiciously hydrating as noted #1, add back regimen once clinically appropriate. #4. Hyperlipidemia: We will continue patient on statin therapy. #5. Chronic normocytic anemia: Admission hemoglobin 12.2, MCV 88.8, baseline hemoglobin similar, continue to trend. #6. Chronic Kidney Disease Stage III per GFR trending, unclear subtype: Admission BUN/Cr 35/1.30, GFR 56, baseline renal function primarily 1.1-1.3, repeat BMP in AM. #7. HFpEF: 09/23/2023 echocardiogram with severe concentric LVH, LVEF 70%, mild biatrial dilatation, RVSP 46 mmHg, mildly dilated aortic root, at this time diastolic function had been indeterminate. As noted above BNP is pending, BP in the ED is low and no recent evidence of weight gain or significant orthopnea or lower extremity swelling this more concern for presentation as part of COVID presentation and possibly superimposed infection. Temporally holding hypertensive regimen given low blood pressure, cautiously hydrating, continue statin therapy and Eliquis regimen. #8. PAF: In the ED patient is currently rate controlled, temporally holding metoprolol given lower blood pressure, will continue Eliquis regimen. #9. BPH with obstructive pathology: We will continue patient on finasteride regimen. #10. Obesity: Weight loss and lifestyle changes encouraged. #11. CHUCHO: Does not use PAP therapy. #12. Former tobacco use: Encourage continued tobacco cessation #13. DVT prophylaxis: Continue home Eliquis therapy. #14. CODE status: Patient CODY is his who is and living will is currently in place. Discussed CODE status at length including difference between FULL code, DNR-CCA and DNR-CC status. Following discussions about the differences in these status, requested DNR-CCA, no intubation status. Advanced Care Planning Face to Face Time: 16 minutes. Charges/Coding Visit Charges Inpatient E&M: 63549 Init Hosp L3 Procedures Hospitalists Procedures: 49054 Advncd Care Plan 30 Min
[2024-07-30 18:59] VITALS: O2SAT 97
--- NOTE | 2024-07-30 19:12 | CT_ITS ---
We are attempting to reach an attending provider to discuss findings. An addendum with communication details will be sent when the communication is complete. STUDY: CTA HEAD AND NECK WITH CONTRAST REASON FOR EXAM: Male, 89 years old. Possible CVA RADIATION DOSAGE (If Supplied By Facility): CTDIvol = ( 24.31 ) mGy, DLP = ( 811.95 ) mGycm TECHNIQUE: CT angiography was performed with a multi-detector CT scanner. Data acquisition was obtained from the skull base through the vertex following intravenous administration of IV 100mL Isovue-370. MIP images were reconstructed from the axial data set. Post-processing of the angiographic images was performed, with multiplanar reformation and 3D reconstruction. Individualized dose optimization techniques were used for this CT. COMPARISON: No relevant priors. FINDINGS: Normal bilateral petrous carotid arteries. Minor calcific plaquing of the right cavernous carotid artery with a normal supraclinoid bifurcation. Minor calcific plaquing of the left cavernous carotid artery with a normal supraclinoid bifurcation. Normal right A1 segments of the anterior cerebral artery. Normal left A1 segments of the anterior cerebral artery. Normal intact anterior communicating artery (ACOM). Normal bilateral A2 segments of the anterior cerebral arteries. Normal right M1 and M2 segments of the middle cerebral arteries, with a normal M1 bifurcation. Normal left M1 and M2 segments of the middle cerebral arteries, with a normal M1 bifurcation. Normal right posterior communicating artery (PCOM). Normal left posterior communicating artery (PCOM). Normal bilateral vertebral arteries. Normal basilar artery with a normal basilar bifurcation. The visualized bilateral superior cerebellar (SCA) arteries are normal. Normal bilateral P1, P2 and visualized P3 segments of the posterior cerebral arteries. There is no demonstrated aneurysm of the [place]. There is no demonstrated abnormality of the visualized brain. AORTIC ARCH: Normal visualized aortic arch. Normal origins of the brachiocephalic, left common carotid, and left subclavian arteries. RIGHT CAROTID ARTERIES: Minor calcific plaquing of the distal right common carotid artery (CCA and right common carotid bulb. Normal origin of the right internal carotid (ICA) artery without a hemodynamically significant stenosis. Normal visualized cervical portion of the right internal carotid artery. Normal origin of the right external carotid artery (ECA). LEFT CAROTID ARTERIES: Mild calcific plaquing of the left common carotid artery (CCA). Mild plaquing of the left common carotid bulb. Normal origin of the left internal carotid (ICA) artery without a hemodynamically significant stenosis. Normal visualized cervical portion of the left internal carotid artery. Normal origin of the left external carotid artery (ECA). VERTEBRAL ARTERIES: Normal bilateral vertebral arteries. CT/STROKE CTA Head AND Neck W/Con IMPRESSION: Mild atherosclerotic disease of the head and neck without evidence for hemodynamically significant stenosis or major vessel occlusion Electronically Signed: Elijah Corral MD at 19:48 EST ,
[2024-07-30 19:29] LABS: Magnesium 2.6 mg/dL (1.6-2.6)
[2024-07-30 19:36] LABS: BNP,B-Type NATRIURETIC PEPTIDE 157.2 pg/mL (0-100)
--- NOTE | 2024-07-30 19:54 | CASEMGMT ---
Care Management Face to Face with patient for initial transition planning/care coordination assessment in the ED.? This business writer introduced self and role at [facility]. Patient lying in bed, alert and oriented. Patient willing to participate in assessment, and daughter at bedside and permission given for them to participate in assessment.? Care providers, pharmacy, and demographics verified. Admitting Diagnosis: Ataxia Other diagnosis history: CHF, arthritis, AFIB, hypoxia, COPD PCP: Chuck Specialists: Jose Preferred Pharmacy: [facility] Insurance: Medicare ? Prescription Benefit:?Yes Living Will/HPOA: Both HPOA and Living Will on file LNOK: Living Arrangements: Lives with in one story home.? 3 stairs to enter.? assisting in all ADLs Transportation: and daughter drive DME: wheelchair, walker, hospital bed, cane, shower chair, pulse ox, blood pressure cuff, nebulizer [facility]: [facility].? Nurse comes out 1 x per week, PT coming out 2 x week SNF/Rehab: none Community Resources: None Behavioral Health History: None Patient goals: Patients goals are uncertain . ?Disposition Plan: admission to acute; RN CM/SW to follow for discharge planning needs that may arise. Kailey Salvador, SERVICE SPRINKLER HELPER, ROBOTICS ENGINEER
--- NOTE | 2024-07-30 20:27 | ECHOCS_ITS ---
Reason For Study: TIA/CVA Procedure This was a 2D Doppler, Color Flow transthoracic echocardiogram. Contrast injection was performed. Exam performed portable in patient room. Left Ventricle Normal LV size. Moderate concentric left ventricular hypertrophy. The left ventricular ejection fraction is 55 %. No regional wall motion abnormalities noted. Right Ventricle Normal RV size. Normal systolic function. Atria The left atrium is moderately enlarged. The right atrium is moderately enlarged. Intact atrial septum. Mitral Valve Bileaflet diffuse mitral valve thickening. Tricuspid Valve The tricuspid valve is not well visualized. Aortic Valve Trisinus/trileaflet aortic valve. Mild focal aortic valve thickening. Pericardium/Pleural No pericardial effusion. Medication Diluted definity 2ml given slow IV push to enhance endocardial definition. Performed a rapid injection of agitated mix of 9 cc saline and 1cc air to assess for atrial septal defect. MMode/2D Measurements & Calculations LVIDd: 4.2 cm IVSd: 1.5 cm asc Aorta Diam: 3.7 cm LVIDs: 3.2 cm LVPWd: 1.6 cm RVDd: 4.1 cm FS: 23.7 % LAV(MOD-bp): 92.6 ml LA A4 area: 26.8 cm2 LA dimension(2D): 4.2 cm LAV(MOD-bp) Indexed: 39.3 ml/m2 LAV(MOD-sp2): 94.0 ml LAV(MOD-sp4): 82.3 ml RA A4 area: 24.6 cm2 Doppler Measurements & Calculations MV E max [place]: 75.3 cm/sec Lat Peak E' [place]: 7.8 cm/sec Med Peak E' [place]: 4.4 cm/sec E/E' lat: 9.7 E/E' med: 17.1 Ao V2 max: 119.4 cm/sec LV V1 max: 93.7 cm/sec PA V2 max: 76.6 cm/sec Ao max P.8 mmHg LV V1 max P.5 mmHg Ao V2 mean: 83.5 cm/sec Ao mean P.1 mmHg Ao V2 VTI: 22.4 cm TR max [place]: 254.2 cm/sec TR max P.8 mmHg ECHO/Echo Complete W/ Contrast Interpretation Summary The left ventricular ejection fraction is 55 %. Normal LV size. Moderate concentric left ventricular hypertrophy. The left atrium is moderately enlarged. The right atrium is moderately enlarged. Intact atrial septum Contrast injection was performed. Ordering Physician: Olivia Meza Referring Physician: Daphne Woods Performed By: Keisha Peralta RDCS, RVT
[2024-07-30 20:29] VITALS: BMI 37.6
[2024-07-30 20:30] VITALS: BP 121/63; PULSE 81; RESP 20; TEMP 36.4; O2SAT 100
[2024-07-30] MEDS: Menthol/Lanolin/Calamine/Znox 113 GM Tube 1 APPLIC TOPICAL (21:30)
[2024-07-30] MEDS: APIXABAN 5 MG TABLET PO (21:31)
[2024-07-30] MEDS: 0.9% Saline Lock 10 ML Syringe IV (21:31)
[2024-07-30] MEDS: Atorvastatin Calcium 20 MG Tablet PO (21:31)
[2024-07-30] MEDS: 0.9% Normal Saline (1000mL) 1,000 ML 75 ML IV (21:41)
[2024-07-30] MEDS: Ceftriaxone 1 GM/50 ML BAG IV (21:43)
[2024-07-30] MEDS: Azithromycin 500 MG in 0.9% Normal Saline (250mL Bag) 250 ML 255 MG IV (22:33)
[2024-07-30 23:07] LABS: Procalcitonin 0.42 ng/mL (0.00-0.09)
[2024-07-31] VITALS (9 sets, daily range): BP systolic 97–108; BP diastolic 55–65; PULSE 54–76; RESP 16–18; TEMP 36.1–36.6; O2SAT 95–100; BMI 37.6; BMI 37.9
[2024-07-31] MEDS: 0.9% Saline Lock 10 ML Syringe IV ×2 (05:44→13:23)
[2024-07-31 06:28] LABS: Absolute Lymphocyte Count 0.26 X10^3/uL (0.83-4.51); Absolute Neutrophil Count 7.9 X10^3/uL (2.0-7.7); Basophil# 0.01 X10^3/uL; Basophil% 0.1 % (0-1); Hematocrit 30.3 % (40-54); Hemoglobin 10.7 g/dL (13.0-16.5); Lymphocyte # 0.26 X10^3/ul (0.83-4.51); Lymphocyte % 3.1 % (19-41); Mean Corp Hgb Conc 35.3 g/dL (32-36); Mean Corpuscular Hgb 31.1 pg (27.0-32.0); Mean Corpuscular Volume 88.1 fL (80-94); Mean Platelet Vol. 9.8 fl (6.2-12.0); Monocyte# 0.14 X10^3/uL; Monocyte% 1.7 % (0-10); NRBC Flagged by Analyzer 0 % (0-5); Neutrophil # 7.93 X10^3/uL (2.7-7.7); Neutrophil % 94.4 % (47-70); POSITIVE DIFFERENTIAL YES; Platelet Count 194 K/mm3 (150-450); RBC Distribution Width CV 12.4 % (11.6-14.6); RBC Distribution Width SD 39.8 fl (35.1-43.9); Red Blood Count 3.44 M/mm3 (4.6-6.2); White Blood Count 8.4 K/mm3 (4.4-11.0)
[2024-07-31 07:12] LABS: ALB/GLOB Ratio 0.6 RATIO (0.9-2.4); AST(SGOT) 52 U/L (15-37); Alanine Aminotransfer ALT/SGPT 38 U/L (16-61); Albumin, Serum 2.2 g/dL (3.2-5.0); Alkaline Phosphatase 100 U/L (45-117); Anion Gap 6 (5-15); BUN 26 mg/dL (7-18); BUN/Creat Ratio 24.1 RATIO (10-20); Calcium,Total 8.5 mg/dL (8.5-10.1); Chloride 99 mmol/L (98-107); Cholesterol 75 mg/dL (200); Creatinine, Serum 1.08 mg/dL (0.70-1.30); EST Glomerular Filtration Rate 69 mL/min (>60); Est Glom Filt Rate - Afr Amer 83 mL/min (>60); Estimated Creatinine Clearance 62.57 ml/min; Globulin 3.9 g/dL (2.2-4.2); Glucose 172 mg/dL (74-106); High Density Lipoprotein 25 mg/dL; Potassium 4.6 mmol/L (3.5-5.1); Protein, Total 6.1 g/dL (6.4-8.2); Sodium Level 124 mmol/L (136-145); Thyroid Stim Hormone (TSH) 0.745 uIU/mL (0.358-3.740); Triglycerides 53 mg/dL; Very Low Density Lipoprotein 11 mg/dL (5-40)
[2024-07-31] MEDS: Budesonide Respules 0.5 MG/2 ML AMPUL.NEB. INHALATION ×2 (07:26→20:26)
[2024-07-31 08:36] LABS: Hemoglobin A1c 5.8 % (3.8-5.6)
--- NOTE | 2024-07-31 08:40 | PN.HOSP_ITS ---
Reason for Visit Reason for Visit: Diagnoses Encephalopathy, unspecified (07/30/24) Subjective Subjective Patient is an 89-year-old old gentleman with multiple comorbidities with recent COVID-19 infection who presented with significant generalized weakness following his diagnosis. Patient had complaint of persistent cough. Chest x-ray obtained on admission came back negative admitted to monitored bed for further management Objective Data Objective Data Vital Signs: Vital Signs Temp Pulse Resp BP Pulse Ox O2 Del Method 97 F L 60 18 97/63 95 Room Air 07/31/24 08:18 07/31/24 08:18 07/31/24 08:18 07/31/24 08:18 07/31/24 08:18 07/31/24 08:18 Oxygen Delivery Method Room Air Weight: 120 kg Body Mass Index (BMI) 37.9 Intake & Output: Intake and Output for Last 24 Hours 07/29/24 07/30/24 07/31/24 23:59 23:59 23:59 Intake Total 790 / 790 255 / 255 Output Total 275 / 275 220 / 220 Balance 515 / 515 35 / 35 Lab / Micro Data 07/31/24 06:07 07/31/24 06:07 Labs: Laboratory Results - last 24 hr 07/30/24 15:10: WBC 11.3 H, RBC 3.93 L, Hgb 12.2 L, Hct 34.9 L, MCV 88.8, MCH 31.0, MCHC 35.0, RDW Std Deviation 41.1, RDW Coeff of Armani 12.6, Plt Count 188, MPV 10.7, Immature Gran % (Auto) 0.600, Neut % (Auto) 88.8 H, Lymph % (Auto) 4.7 L, [place] % (Auto) 5.4, Eos % (Auto) 0.1, Baso % (Auto) 0.4, Absolute Neuts (auto) 10.0 H, Absolute Lymphs (auto) 0.53 L, Nucleated RBC % 0, Sodium 136, Potassium 4.3, Chloride 104, Carbon Dioxide 28.0, Anion Gap 4 L, BUN 35 H, Creatinine 1.30, Estim Creat Clear Calc 52.09, Est GFR (MDRD) Af Amer 67, Est GFR (MDRD) Non-Af 56 L, BUN/Creatinine Ratio 26.9 H, Glucose 90, Calcium 8.8, Magnesium 2.6, Total Bilirubin 0.40, AST 14 L, ALT 10 L, Alkaline Phosphatase 113, B- Natriuretic Peptide 157.2 H, Total Protein 6.8, Albumin 3.0 L, Globulin 3.8, A lbumin/Globulin Ratio 0.8 L, Procalcitonin 0.42 H 07/30/24 16:50: Urine Color Yellow, Urine Clarity Clear, Urine pH 6.5, Ur Specific [place] 1.010, Urine Protein 15 H, Urine Glucose (UA) Normal, Urine Ketones Negative, Urine Occult Blood 10 H, Urine Nitrite Negative, Urine Bilirubin Negative, Urine Urobilinogen 4 H, Ur Leukocyte Esterase 25 H, Urine RBC 0-5 SEEN, Urine WBC 0-5 SEEN, Ur Squamous Epith Cells 0-5 SEEN, Urine Bacteria 0 SEEN, Urine Mucus 0 SEEN 07/31/24 06:07: WBC 8.4, RBC 3.44 L, Hgb 10.7 L, Hct 30.3 L, MCV 88.1, MCH 31.1, MCHC 35.3, RDW Std Deviation 39.8, RDW Coeff of Armani 12.4, Plt Count 194, MPV 9.8, Immature Gran % (Auto) 0.700, Neut % (Auto) 94.4 H, Lymph % (Auto) 3.1 L, Clay % (Auto) 1.7, Eos % (Auto) 0.0, Baso % (Auto) 0.1, Absolute Neuts (auto) 7.9 H, Absolute Lymphs (auto) 0.26 L, Nucleated RBC % 0, Sodium 124 L, Potassium 4.6, Chloride 99, Carbon Dioxide 19.0 L, Anion Gap 6, BUN 26 H, Creatinine 1.08, Estim Creat Clear Calc 62.57, Est GFR (MDRD) Af Amer 83, Est GFR (MDRD) Non-Af 69, BUN/Creatinine Ratio 24.1 H, Glucose 172 H, Hemoglobin A1c 5.8 H, Calcium 8.5, Total Bilirubin 1.10 H, AST 52 H, ALT 38, Alkaline Phosphatase 100, Total Protein 6.1 L, Albumin 2.2 L, Globulin 3.9, Albumin/Globulin Ratio 0.6 L, Triglycerides 53, Cholesterol 75, LDL Cholesterol 39, VLDL Cholesterol 11, HDL Cholesterol 25 L, TSH 0.745 Micro: Microbiology 07/31/24 01:15 Mucosa - Nasopharyngeal Respiratory Panel (PCR) - Final Radiography Diagnostic Testing: Radiology Impression Brain CT 07/30/24 15:32 IMPRESSION: Atrophy and moderate periventricular white matter ischemic change. No acute bleed. If concern for acute infarct MRI recommended Electronically Signed: Elijah Corral MD at 16:51 EST , Chest X-Ray 07/30/24 15:32 IMPRESSION: Slight increase in interstitial markings may represent edema and/or infection. Electronically Signed: Jef Moran MD at 17:30 EST , Head/Neck CTA 07/30/24 19:12 IMPRESSION: Mild atherosclerotic disease of the head and neck without evidence for hemodynamically significant stenosis or major vessel occlusion Electronically Signed: Elijah Corral MD at 19:48 EST Reading Location ID and State: [facility] / [place] Tel [phone], Service support , ADDENDUM: 07/30/242001 IMPRESSION: Mild atherosclerotic disease of the head and neck without evidence for hemodynamically significant stenosis or major vessel occlusion N.B. : The above Results were Read Back by Elijah Corral MD to dr brenda MD, and understanding confirmed on 07/30/2024 19:55:07 (ET). Electronically Signed: Elijah Corral MD at 19:48 EST , Physical Exam Narrative GENERAL: cooperative HEENT: Atraumatic; normocephalic EYES; Anicteric, Normal Conjunctiva NECK; supple, normal thyroid, RESPIRATORY: Diminished to auscultation CARDIOVASCULAR: Regular S1 S2, GI: soft, normoactive bowel sounds, : No Renal angle tenderness; EXTREMITIES: edema, no clubbing, MUSCULOSKELETAL: no muscle wasting NEURO: Awake; no lateralizing signs. SKIN: No Rash PSYCH; Flat affect Assessment & Plan Assessment/Plan (1) Encephalopathy acute: PLAN: Plan Patient is an 89-year-old old gentleman with multiple comorbidities with recent COVID-19 infection who presented with significant generalized weakness following his diagnosis. Patient had complaint of persistent cough. Chest x-ray obtained on admission came back negative admitted to monitored bed for further management 1. Recent COVID-19 with significant physical debility ? Patient admitted to monitored bed requested for PT OT eval and social sciences professor to assist with discharge planning 2. Subjective right upper extremity weakness ? MRI ordered for subsequent eval 3. Hyponatremia ? Suspected to be secondary to fluid overload status 2D echo ordered as part of patient's eval patient started on Lasix 4. Acute on chronic congestive heart failure ? Echo from almost a year ago demonstrated LVEF of 70% repeat echo ordered, Patient placed on strict input and output, daily weight, fluid restriction as well as supplemental oxygen titrated to keep saturation greater than 90 5. Hypertension ? Blood pressure controlled, home medications continued with dose adjustment as needed 6. Paroxysmal A-fib ? Rate controlled with beta-blockers on systemic anticoagulation with apixaban 7. Dyslipidemia -Patient is on statin therapy, continued at home dose 8. Obstructive sleep apnea ? Patient is on BiPAP at night 9. Coronary artery disease ? With previous KARIS to mid RCA lesion patient remains on guideline directed medical therapy 10. COPD ? Currently not in exacerbation aerosol treatment as needed 11. Physical deconditioning - Requested for PT OT eval and social sciences professor to assist with discharge planning 12. Class II obesity with BMI of 38 ? Complicating care weight loss advised 14. BPH with lower urinary obstructive symptoms - Patient treated with finasteride 15. DVT prophylaxis ? On apixaban Time spent in the patient's overall evaluation,decision-making process, review of diagnostic data, adjustment of management, discussion with other providers, nursing nursing and ancillary staff involved in patient's care documentation, 52 Minutes Charges/Coding Visit Charges Inpatient E&M: 77288 [facility] Hosp L3
[2024-07-31] MEDS: Finasteride 5 MG Tablet PO (10:52)
[2024-07-31] MEDS: APIXABAN 5 MG TABLET PO ×2 (10:52→22:29)
[2024-07-31] MEDS: Aspirin E.C. 81 MG Tablet PO (10:52)
--- NOTE | 2024-07-31 11:10 | CASEMGMT ---
Addendum entered by Tomer Ledesma 07/31/24 14:51: [facility] has not provided a JAYLON date at this time. Green sheet placed on the pt chart to facilitate weekend DC. Addendum entered by Tomer Ledesma 07/31/24 11:23: [facility] states that the pt is active with SN and PT and that they will be able to resume care once the pt returns home. JAYLON order sent to [facility] via [facility] at this time. Original Note: RN CM to pt room at this time to discuss DC planning. Pt sitting up in the chair and is calm. Pt states that he wishes to return home at the time of DC with his . Pt states that he would like to resume HH services through [facility] and declines wanting to review a new list of local in-network HHC agencies. Resumption referral sent to [facility] via [facility] at this time. CM to continue to follow.
--- NOTE | 2024-07-31 13:08 | CASEMGMT ---
Social Work MRI negative, PHQ9 depression screen not warranted. Elke Knutson, [employer] SUPERVISOR
[2024-07-31] MEDS: Menthol/Lanolin/Calamine/Znox 113 GM Tube 1 APPLIC TOPICAL ×4 (13:23→22:26)
[2024-07-31] MEDS: Furosemide 100 MG/10 ML Vial 60 MG IV (13:23)
[2024-07-31] MEDS: Senna/Docusate Sodium 1 Tablet 2 TABLET PO (14:39)
--- NOTE | 2024-07-31 20:27 | MRI_ITS ---
HISTORY: CVA, general weakness, dyspneic, slow speech. TECHNIQUE: Multiplanar and multisequence MR images of the brain were obtained without contrast. 295 images. COMPARISON: CT prior day. FINDINGS: BRAIN PARENCHYMA: Multiple foci and small zones of increased T2 FLAIR signal in the bilateral cerebral white matter. No abnormal focus of restricted diffusion. No acute intracranial hemorrhage identified. CSF SPACES: Moderate volume loss. No significant midline shift or other mass effect.No extra-axial fluid collection. 1.1 x 2 cm left frontal extra-axial lesion near the vertex. VASCULAR SYSTEM: Major intracranial flow voids are maintained. PARANASAL SINUSES AND MASTOID AIR CELLS: Mild fluid and mucosal thickening in the maxillary sinuses. ORBITS: Bilateral lens resections. MRI/Brain without Contrast IMPRESSION: No evidence for acute infarct. Chronic involutional and white matter changes. 2 cm left frontal extra-axial lesion, most compatible with meningioma. Electronically Signed: Tara Jones MD at 11:39 EST ,
[2024-07-31] MEDS: Ceftriaxone 1 GM/50 ML BAG IV (21:22)
[2024-07-31] MEDS: Atorvastatin Calcium 20 MG Tablet PO (22:29)
[2024-07-31] MEDS: Azithromycin 500 MG in 0.9% Normal Saline (250mL Bag) 250 ML 255 MG IV (22:30)
[2024-07-31] MEDS: Furosemide 40 MG Tablet PO (22:44)
[2024-08-01] VITALS (9 sets, daily range): BP systolic 91–102; BP diastolic 56–74; PULSE 54–82; RESP 16–22; TEMP 36.3–36.6; O2SAT 95–100; BMI 37.5
[2024-08-01] MEDS: 0.9% Saline Lock 10 ML Syringe IV ×2 (05:50→21:37)
[2024-08-01 06:39] LABS: Absolute Lymphocyte Count 0.38 X10^3/uL (0.83-4.51); Basophil# 0.01 X10^3/uL; Basophil% 0.1 % (0-1); Hemoglobin 10.5 g/dL (13.0-16.5); Lymphocyte # 0.38 X10^3/ul (0.83-4.51); Lymphocyte % 4.3 % (19-41); Mean Corpuscular Hgb 30.7 pg (27.0-32.0); Mean Corpuscular Volume 87.7 fL (80-94); Mean Platelet Vol. 10.6 fl (6.2-12.0); Monocyte# 0.28 X10^3/uL; Monocyte% 3.2 % (0-10); NRBC Flagged by Analyzer 0 % (0-5); Neutrophil # 8.04 X10^3/uL (2.7-7.7); Neutrophil % 91.6 % (47-70); POSITIVE DIFFERENTIAL YES; Platelet Count 215 K/mm3 (150-450); RBC Distribution Width CV 12.4 % (11.6-14.6); Red Blood Count 3.42 M/mm3 (4.6-6.2); White Blood Count 8.8 K/mm3 (4.4-11.0)
[2024-08-01] MEDS: Budesonide Respules 0.5 MG/2 ML AMPUL.NEB. INHALATION ×2 (06:56→20:16)
[2024-08-01 07:07] LABS: Anion Gap 5 (5-15); BUN 38 mg/dL (7-18); Calcium,Total 8.8 mg/dL (8.5-10.1); Chloride 102 mmol/L (98-107); Creatinine, Serum 1.15 mg/dL (0.70-1.30); EST Glomerular Filtration Rate 64 mL/min (>60); Est Glom Filt Rate - Afr Amer 77 mL/min (>60); Estimated Creatinine Clearance 58.45 ml/min; Glucose 186 mg/dL (74-106); Magnesium 2.2 mg/dL (1.6-2.6); Phosphorus 3.3 mg/dL (2.5-4.9); Potassium 4.1 mmol/L (3.5-5.1); Sodium Level 129 mmol/L (136-145); Thyroid Stim Hormone (TSH) 0.395 uIU/mL (0.358-3.740)
--- NOTE | 2024-08-01 07:28 | PCM.PN.HOSP ---
Reason for Visit Reason for Visit: Diagnoses Encephalopathy, unspecified (07/30/24) Subjective Subjective Change seen clinical condition improving as well as his sodium levels Objective Data Objective Data Vital Signs: Vital Signs Temp Pulse Resp BP Pulse Ox O2 Del Method 97.4 F L 63 18 102/59 L 99 Room Air 08/01/24 03:00 08/01/24 06:57 08/01/24 06:57 08/01/24 03:00 08/01/24 06:57 08/01/24 06:57 Oxygen Delivery Method Room Air Weight: 118.8 kg Body Mass Index (BMI) 37.5 Intake & Output: Intake and Output for Last 24 Hours 07/30/24 07/31/24 08/01/24 23:59 23:59 23:59 Intake Total 790 / 790 2280 / 2460 360 / 360 Output Total 275 / 275 820 / 1060 540 / 540 Balance 515 / 515 1460 / 1400 -180 / -180 Lab / Micro Data 08/01/24 05:46 08/01/24 05:46 Labs: Laboratory Results - last 24 hr 07/31/24 06:07: Hemoglobin A1c 5.8 H 08/01/24 05:46: WBC 8.8, RBC 3.42 L, Hgb 10.5 L, Hct 30.0 L, MCV 87.7, MCH 30.7, MCHC 35.0, RDW Std Deviation 40.0, RDW Coeff of Armani 12.4, Plt Count 215, MPV 10.6, Immature Gran % (Auto) 0.800, Neut % (Auto) 91.6 H, Lymph % (Auto) 4.3 L, [place] % (Auto) 3.2, Eos % (Auto) 0.0, Baso % (Auto) 0.1, Absolute Neuts (auto) 8.0 H, Absolute Lymphs (auto) 0.38 L, Nucleated RBC % 0, Sodium 129 L, Potassium 4.1, Chloride 102, Carbon Dioxide 22.0, Anion Gap 5, BUN 38 H, Creatinine 1.15, Estim Creat Clear Calc 58.45, Est GFR (MDRD) Af Amer 77, Est GFR (MDRD) Non-Af 64, BUN/Creatinine Ratio 33.0 H, Glucose 186 H, Calcium 8.8, Phosphorus 3.3, Magnesium 2.2, TSH 0.395 Micro: Microbiology 07/31/24 19:12 Urine, Clean Catch Legionella Antigen - Final 07/31/24 19:12 Urine, Clean Catch Streptococcus pneumoniae Antigen (M - Final 07/30/24 16:50 Urine, Clean Catch Urine Culture - Preliminary Gram negative beverly 07/31/24 01:15 Mucosa - Nasopharyngeal Respiratory Panel (PCR) - Final Radiography Diagnostic Testing: Radiology Impression Echocardiogram 07/30/24 20:27 Interpretation Summary The left ventricular ejection fraction is 55 %. Normal LV size. Moderate concentric left ventricular hypertrophy. The left atrium is moderately enlarged. The right atrium is moderately enlarged. Intact atrial septum Contrast injection was performed. Ordering Physician: Olivia Meza Referring Physician: Daphne Woods Performed By: Keisha Peralta, MEENAKSHI, RVT Brain MRI 07/31/24 20:27 IMPRESSION: No evidence for acute infarct. Chronic involutional and white matter changes. 2 cm left frontal extra-axial lesion, most compatible with meningioma. Electronically Signed: Tara Jones MD at 11:39 EST Reading Location ID and State: [facility] / [place] Tel , Service support , Physical Exam Narrative GENERAL: cooperative HEENT: Atraumatic; normocephalic EYES; Anicteric, Normal Conjunctiva NECK; supple, normal thyroid, RESPIRATORY: Diminished to auscultation CARDIOVASCULAR: Regular S1 S2, GI: soft, normoactive bowel sounds, : No Renal angle tenderness; EXTREMITIES: edema, no clubbing, MUSCULOSKELETAL: no muscle wasting NEURO: Awake; no lateralizing signs. SKIN: No Rash PSYCH; Flat affect Assessment & Plan Assessment/Plan (1) Encephalopathy acute: PLAN: Plan Patient is an 89-year-old old gentleman with multiple comorbidities with recent COVID-19 infection who presented with significant generalized weakness following his diagnosis. Patient had complaint of persistent cough. Chest x-ray obtained on admission came back negative admitted to monitored bed for further management 1. Recent COVID-19 with significant physical debility ? Patient admitted to monitored bed requested for PT OT eval and mental health social worker to assist with discharge planning ? 08/01/2024; continues to improve 2. Subjective right upper extremity weakness ? MRI ordered for subsequent eval ? 08/01/2024; MRI did show No evidence for acute infarct. Chronic involutional and white matter changes. 2 cm left frontal extra-axial lesion, most compatible with meningioma.. Every 4 neurochecks discontinued 3. Hyponatremia ? Suspected to be secondary to fluid overload status 2D echo ordered as part of patient's eval patient started on Lasix ? 08/01/2024; sodium levels improving with diuresis 4. Acute on chronic congestive heart failure ? Echo from almost a year ago demonstrated LVEF of 70% repeat echo ordered, Patient placed on strict input and output, daily weight, fluid restriction as well as supplemental oxygen titrated to keep saturation greater than 90 5. Hypertension ? Blood pressure controlled, home medications continued with dose adjustment as needed 6. Paroxysmal A-fib ? Rate controlled with beta-blockers on systemic anticoagulation with apixaban 7. Dyslipidemia -Patient is on statin therapy, continued at home dose 8. Obstructive sleep apnea ? Patient is on BiPAP at night 9. Coronary artery disease ? With previous KARIS to mid RCA lesion patient remains on guideline directed medical therapy 10. COPD ? Currently not in exacerbation aerosol treatment as needed 11. Physical deconditioning - Requested for PT OT eval and mental health social worker to assist with discharge planning 12. Class II obesity with BMI of 38 ? Complicating care weight loss advised 14. BPH with lower urinary obstructive symptoms - Patient treated with finasteride 15. DVT prophylaxis ? On apixaban Time spent in the patient's overall evaluation,decision-making process, review of diagnostic data, adjustment of management, discussion with other providers, nursing nursing and ancillary staff involved in patient's care documentation, 36 minutes Charges/Coding Visit Charges Inpatient E&M: 81593 Subs Hosp L2
[2024-08-01] MEDS: Spironolactone 25 MG Tablet PO (12:29)
[2024-08-01] MEDS: Menthol/Lanolin/Calamine/Znox 113 GM Tube 1 APPLIC TOPICAL ×2 (12:29→15:14)
[2024-08-01] MEDS: APIXABAN 5 MG TABLET PO ×2 (12:30→21:36)
[2024-08-01] MEDS: Furosemide 40 MG Tablet PO ×2 (12:30→18:51)
[2024-08-01] MEDS: Aspirin E.C. 81 MG Tablet PO (12:30)
[2024-08-01] MEDS: Finasteride 5 MG Tablet PO (12:31)
[2024-08-01] MEDS: Metoprolol(XL)Succ 25 MG Tablet PO (12:40)
[2024-08-01] MEDS: Atorvastatin Calcium 20 MG Tablet PO (21:36)
[2024-08-02] VITALS (7 sets, daily range): BP systolic 105–119; BP diastolic 68–73; PULSE 52–67; RESP 16–22; TEMP 36.3–36.6; O2SAT 97–99; BMI 37.7
[2024-08-02] MEDS: 0.9% Saline Lock 10 ML Syringe IV ×3 (05:39→21:46)
[2024-08-02 06:09] LABS: Absolute Lymphocyte Count 0.41 X10^3/uL (0.83-4.51); Absolute Neutrophil Count 9.4 X10^3/uL (2.0-7.7); Basophil# 0.02 X10^3/uL; Basophil% 0.2 % (0-1); Eosinophil# 0.01 X10^3/uL; Eosinophils% 0.1 % (0-5); Hematocrit 29.8 % (40-54); Hemoglobin 10.5 g/dL (13.0-16.5); Lymphocyte # 0.41 X10^3/ul (0.83-4.51); Mean Corp Hgb Conc 35.2 g/dL (32-36); Mean Corpuscular Hgb 30.7 pg (27.0-32.0); Mean Corpuscular Volume 87.1 fL (80-94); Mean Platelet Vol. 11.5 fl (6.2-12.0); Monocyte# 0.27 X10^3/uL; Monocyte% 2.6 % (0-10); NRBC Flagged by Analyzer 0 % (0-5); Neutrophil # 9.42 X10^3/uL (2.7-7.7); Neutrophil % 92.1 % (47-70); POSITIVE DIFFERENTIAL YES; Platelet Count 190 K/mm3 (150-450); RBC Distribution Width CV 12.6 % (11.6-14.6); Red Blood Count 3.42 M/mm3 (4.6-6.2); White Blood Count 10.2 K/mm3 (4.4-11.0)
[2024-08-02 06:25] LABS: Anion Gap 8 (5-15); BUN 43 mg/dL (7-18); BUN/Creat Ratio 36.1 RATIO (10-20); Calcium,Total 8.7 mg/dL (8.5-10.1); Chloride 104 mmol/L (98-107); Creatinine, Serum 1.19 mg/dL (0.70-1.30); EST Glomerular Filtration Rate 61 mL/min (>60); Est Glom Filt Rate - Afr Amer 74 mL/min (>60); Estimated Creatinine Clearance 56.59 ml/min; Glucose 165 mg/dL (74-106); Sodium Level 131 mmol/L (136-145)
[2024-08-02] MEDS: Budesonide Respules 0.5 MG/2 ML AMPUL.NEB. INHALATION ×2 (07:04→19:15)
--- NOTE | 2024-08-02 09:45 | PCM.PN.HOSP ---
Reason for Visit Reason for Visit: Diagnoses Encephalopathy, unspecified (07/30/24) Objective Data Objective Data Vital Signs: Vital Signs Temp Pulse Resp BP Pulse Ox O2 Del Method 97.4 F L 67 16 112/68 97 Room Air 08/02/24 07:00 08/02/24 07:04 08/02/24 07:04 08/02/24 07:00 08/02/24 07:04 08/02/24 08:00 Oxygen Delivery Method Room Air Weight: 262 lb 12.656 oz Body Mass Index (BMI) 37.7 Intake & Output: Intake and Output for Last 24 Hours 07/31/24 08/01/24 08/02/24 23:59 23:59 23:59 Intake Total 2280 / 2460 1260 / 1440 180 / 180 Output Total 820 / 1060 1240 / 1640 750 / 750 Balance 1460 / 1400 20 / -200 -570 / -570 Lab / Micro Data 08/02/24 05:23 08/02/24 05:23 Labs: Laboratory Results - last 24 hr 08/02/24 05:23: WBC 10.2, RBC 3.42 L, Hgb 10.5 L, Hct 29.8 L, MCV 87.1, MCH 30.7, MCHC 35.2, RDW Std Deviation 40.0, RDW Coeff of Armani 12.6, Plt Count 190, MPV 11.5, Immature Gran % (Auto) 1.000 H, Neut % (Auto) 92.1 H, Lymph % (Auto) 4.0 L, [place] % (Auto) 2.6, Eos % (Auto) 0.1, Baso % (Auto) 0.2, Absolute Neuts (auto) 9.4 H, Absolute Lymphs (auto) 0.41 L, Nucleated RBC % 0, Sodium 131 L, Potassium 4.0, Chloride 104, Carbon Dioxide 19.0 L, Anion Gap 8, BUN 43 H, Creatinine 1.19, Estim Creat Clear Calc 56.59, Est GFR (MDRD) Af Amer 74, Est GFR (MDRD) Non-Af 61, BUN/Creatinine Ratio 36.1 H, Glucose 165 H, Calcium 8.7 Micro: Microbiology 07/30/24 16:50 Urine, Clean Catch Urine Culture - Preliminary Enterobacter cloacae complex 07/31/24 19:12 Urine, Clean Catch Legionella Antigen - Final 07/31/24 19:12 Urine, Clean Catch Streptococcus pneumoniae Antigen (M - Final 07/31/24 01:15 Mucosa - Nasopharyngeal Respiratory Panel (PCR) - Final Physical Exam Narrative Seen and examined Patient has bilateral leg swelling. Denies shortness of breath or chest pain. No acute cough Physical exam general: Alert, Oriented x3, Cooperative HEENT: Atraumatic, PERRLA, EOMI, Normocephalic Oral: No Gingival or Mucosal Lesions/ Ulcerations Neck: Supple, No JVD, Negative Carotid Bruits Chest wall/Lungs: Air entry diminished in bilateral lung bases. Mild occasional right basilar land surveyor Cardiovascular: Regular rate, Regular Rhythm, Normal S1, Normal S2, No M/G/R Abdomen: Bowel Sounds Present, Soft, Non Tender, Non-Distended : No dysuria. No renal angle tenderness. No suprapubic tenderness. Extremities: 2+ bilateral pitting below knee edema, Capillary Refill Less than 3 Seconds Skin: No rashes, No breakdown Musculoskeletal: 4/5 at knees and knee joints. No Tenderness to Palpation of Joints or Extremities Neurological: Cranial nerves II-XII grossly intact, DTR 2+/4. No acute focal neurological deficit. Psych/Mental Status: Flat affect Assessment & Plan Assessment/Plan (1) Encephalopathy acute: PLAN: Plan Patient is an 89-year-old old gentleman with multiple comorbidities with recent COVID-19 infection who presented with significant generalized weakness following his diagnosis. Patient had complaint of persistent cough. Chest x-ray obtained on admission came back negative admitted to monitored bed for further management 1. Recent COVID-19 with significant physical debility ? Patient admitted to monitored bed requested for PT OT eval and social problems specialist to assist with discharge planning ? 08/01/2024; continues to improve 08/02: Continue incentive spirometry and PEP for 1 week 2. Subjective right upper extremity weakness ? MRI ordered for subsequent eval ? 08/01/2024; MRI did show No evidence for acute infarct. Chronic involutional and white matter changes. 2 cm left frontal extra-axial lesion, most compatible with meningioma.. Every 4 neurochecks discontinued 08/02: Outpatient follow-up with the neurologist and possible neurosurgeon. 3. Hyponatremia ? Suspected to be secondary to fluid overload status 2D echo ordered as part of patient's eval patient started on Lasix ? 08/01/2024; sodium levels improving with diuresis 08/02: Serum sodium 131. 4. Acute on chronic congestive heart failure ? Echo from almost a year ago demonstrated LVEF of 70% repeat echo ordered, Patient placed on strict input and output, daily weight, fluid restriction as well as supplemental oxygen titrated to keep saturation greater than 90 08/02: Echo reviewed. EF 55% with right and left atria moderately enlarged, moderate concentric LVH consistent with HFpEF 5. Hypertension ? Blood pressure controlled, home medications continued with dose adjustment as needed 6. Paroxysmal A-fib ? Rate controlled with beta-blockers on systemic anticoagulation with apixaban 7. Dyslipidemia -Patient is on statin therapy, continued at home dose 8. Obstructive sleep apnea ? Patient is on BiPAP at night 9. Coronary artery disease ? With previous KARIS to mid RCA lesion patient remains on guideline directed medical therapy 10. COPD ? Currently not in exacerbation aerosol treatment as needed 11. Physical deconditioning - Requested for PT OT eval and social problems specialist to assist with discharge planning 12. Class II obesity with BMI of 38 ? Complicating care weight loss advised 14. BPH with lower urinary obstructive symptoms - Patient treated with finasteride 15. DVT prophylaxis ? On apixaban 2D echo on 07/30/2024 Interpretation Summary The left ventricular ejection fraction is 55 %. Normal LV size. Moderate concentric left ventricular hypertrophy. The left atrium is moderately enlarged. The right atrium is moderately enlarged. Intact atrial septum Contrast injection was performed. Charges/Coding Visit Charges Inpatient E&M: 67632 Subs Hosp L2
[2024-08-02] MEDS: Furosemide 40 MG Tablet PO (10:41)
[2024-08-02] MEDS: Metoprolol(XL)Succ 25 MG Tablet PO (10:42)
[2024-08-02] MEDS: Aspirin E.C. 81 MG Tablet PO (10:42)
[2024-08-02] MEDS: APIXABAN 5 MG TABLET PO ×2 (10:42→21:45)
[2024-08-02] MEDS: Menthol/Lanolin/Calamine/Znox 113 GM Tube 1 APPLIC TOPICAL ×4 (10:42→21:44)
[2024-08-02] MEDS: Finasteride 5 MG Tablet PO (10:42)
[2024-08-02] MEDS: Spironolactone 25 MG Tablet PO (10:42)
--- NOTE | 2024-08-02 16:16 | CHAPLAIN ---
Type of Pastoral Visit _x__ Initial Visit ___ Follow-up Visit ___ On-call Visit ___ General Patient Visit ___ Spiritual Assessment ___ Family Conference ___ Bereavement ___ Rapid Response ___ Code Blue ___ Other (describe below) Pastoral Care Referral From _x__ Patient ___ Family ___ Nurse ___ Physician ___ Mental Health Aides Teacher ___ Grounds/Maintenance Specialist ___ Other (describe below) Sacrament/Intervention _x__ Active listening ___ Anointing ___ Orthodoxy ___ Bereavement ___ Communion ___ Linda exploration ___ _x__ Life review _x__ Prayer ___ Reconciliation ___ Sacrament of Sick _x__ Supportive presence ___ Wedding ___ Other (describe below) Pastoral Comments patient is very welcoming and kind; spouse is with him; pt gives lots of life review; pt admits to having emotional concern with being in the hospital, aging, accepting help from others, and realizing the changes of his life; spouse is active in the conversation and adds that it is difficult to care for the patient by herself when he needs it and that they both need to admit they are in a situation where they must have help too; pt and spouse have been active in the Buddhist jain and look to their linda for support; prayer is given; pt expresses gratitude and would be open to future visits
[2024-08-02] MEDS: Senna/Docusate Sodium 1 Tablet 2 TABLET PO ×2 (18:04→21:46)
[2024-08-02] MEDS: Furosemide 20 MG Tablet 60 MG PO (18:04)
[2024-08-02] MEDS: Atorvastatin Calcium 20 MG Tablet PO (21:46)
[2024-08-03 03:00] VITALS: BP 111/60; PULSE 52; RESP 16; TEMP 36.4; O2SAT 98
[2024-08-03 04:54] VITALS: BMI 37.7
[2024-08-03 06:07] LABS: Absolute Lymphocyte Count 0.46 X10^3/uL (0.83-4.51); Absolute Neutrophil Count 8.4 X10^3/uL (2.0-7.7); Basophil# 0.01 X10^3/uL; Basophil% 0.1 % (0-1); Hematocrit 30.9 % (40-54); Hemoglobin 10.7 g/dL (13.0-16.5); Lymphocyte # 0.46 X10^3/ul (0.83-4.51); Lymphocyte % 4.9 % (19-41); Mean Corp Hgb Conc 34.6 g/dL (32-36); Mean Corpuscular Hgb 30.4 pg (27.0-32.0); Mean Corpuscular Volume 87.8 fL (80-94); Mean Platelet Vol. 9.9 fl (6.2-12.0); Monocyte# 0.36 X10^3/uL; Monocyte% 3.9 % (0-10); NRBC Flagged by Analyzer 0 % (0-5); Neutrophil # 8.41 X10^3/uL (2.7-7.7); Neutrophil % 90.2 % (47-70); POSITIVE DIFFERENTIAL YES; Platelet Count 272 K/mm3 (150-450); RBC Distribution Width CV 12.7 % (11.6-14.6); RBC Distribution Width SD 40.7 fl (35.1-43.9); Red Blood Count 3.52 M/mm3 (4.6-6.2); White Blood Count 9.3 K/mm3 (4.4-11.0)
[2024-08-03 06:30] LABS: Anion Gap 7 (5-15); BUN 42 mg/dL (7-18); BUN/Creat Ratio 34.4 RATIO (10-20); Calcium,Total 8.7 mg/dL (8.5-10.1); Chloride 103 mmol/L (98-107); Creatinine, Serum 1.22 mg/dL (0.70-1.30); EST Glomerular Filtration Rate 60 mL/min (>60); Est Glom Filt Rate - Afr Amer 72 mL/min (>60); Estimated Creatinine Clearance 55.22 ml/min; Glucose 153 mg/dL (74-106); Potassium 4.2 mmol/L (3.5-5.1); Sodium Level 131 mmol/L (136-145)
[2024-08-03 08:04] VITALS: PULSE 63; RESP 16; O2SAT 96
[2024-08-03] MEDS: Budesonide Respules 0.5 MG/2 ML AMPUL.NEB. INHALATION (08:04)
[2024-08-03 09:15] VITALS: O2SAT 97; O2SAT 98
--- NOTE | 2024-08-03 09:15 | PCM.DC ---
Discharge Instructions Diet Discharge Diet: Low fat / Low cholesterol, 1800 Calorie Control Diet, 8 Cup Fluid Restriction and 2000 mg Sodium Diet DC O2, CPAP, BIPAP needs Home O2 Discharge instructions: No Dressing / Incision Discharge Activity: Return to Normal Activity Weight Bearing Status: Weight bearing as tolerated Dressing / Incision Call your doctor if you observe: Fever of 101 or Higher, Coldness, Increased Pain, Numbness or Tingling, Change in Color, Inability to urinate, Inability to have a bowel movement, Shortness of breath, Dizziness, Fainting spells, Swelling in the ankles, Chest pain, Prolonged hiccupping, Increased palpitations (irregular heartbeat) and Calf discomfort Follow Up Care When: IN 2 WEEKS Test Results: Test results from this visit will be discussed in further detail at your follow-up appointment, if applicable. Discharge Plan Admission Admit Date/Time: 07/30/24 19:01 Attending Provider: Robbie Lowry Primary Care Provider: Daphne Woods Consulting Providers: Olivia Meza; Yayo Esquivel Discharge Orders/Prescriptions Prescriptions: New sennosides-docusate sodium [Stimulant Laxative Plus] 8.6-50 mg Tablet 2 tab PO BID PRN (Reason: CONSTIPATION) Qty: 0 0RF Rx Instructions: OTC Continued cholecalciferol (vitamin D3) 25 mcg (1,000 unit) capsule 25 mcg PO DAILY PreserVision AREDS-2 250-90-40-1 mg capsule 1 tab PO BID Rx Instructions: administer with meals finasteride 5 mg tablet 5 mg PO DAILY nitroglycerin 0.4 mg tablet, sublingual 0.4 mg SUBLINGUAL Q5-15M PRN (Reason: CHEST PAIN ) Qty: 25 3RF Rx Instructions: do not exceed 3 doses per episode coenzyme Q10 [CoQ-10] 100 mg capsule 100 mg PO DAILY atorvastatin [Lipitor] 20 mg tablet 20 mg PO DAILY Qty: 90 3RF albuterol sulfate 2.5 mg /3 mL (0.083 %) solution for nebulization 2.5 mg inhalation Q4H PRN (Reason: shortness of breath or wheezing) Qty: 75 1RF fluticasone propion-salmeterol 100-50 mcg/dose blister with device 1 inh inhalation BID Qty: 60 5RF aspirin [Adult Aspirin Regimen] 81 mg tablet,delayed release (DR/EC) 81 mg PO DAILY metoprolol succinate 25 mg tablet extended release 24 hr 25 mg PO DAILY Qty: 90 3RF spironolactone 25 mg tablet 25 mg PO DAILY Qty: 90 3RF Eliquis 5 mg tablet 5 mg PO BID Qty: 180 4RF Changed furosemide [Lasix] 40 mg tablet 60 mg PO BID 30 Days Qty: 90 3RF Discontinued ovklxjca-apse-abhkp-oreg-capry 100 mg-150 mg- 50 mg-150 mg capsule 1 cap PO DAILY Referrals / Follow Up: Daphne Woods MD [Primary Care Provider] - Within 2 Weeks Robby Peralta NP, [facility] [Med Staff - [facility] Prof] - Within 2 Weeks Disposition Disposition (needs filled in before D/C Order can be placed): Home Health Service
--- NOTE | 2024-08-03 09:22 | PCM.DC.SUM ---
Providers Date of Admission: 07/30/24 Date of Discharge: 08/03/24 Primary Care Physician: Dr. Daphne Woods MD Reason For Visit: HYPOXIA RECENT COVID SUPERIMP PNA ATAXIA Diagnosis Discharge Diagnosis (1) Encephalopathy acute: Status: Acute Code(s): G93.40 - Encephalopathy, unspecified Plan Patient is an 89-year-old old gentleman with multiple comorbidities with recent COVID-19 infection who presented with significant generalized weakness following his diagnosis. Patient had complaint of persistent cough. Chest x-ray obtained on admission came back negative admitted to monitored bed for further management 1. Recent COVID-19 with significant physical debility ? Patient admitted to monitored bed requested for PT OT eval and medical social consultant to assist with discharge planning ? 08/01/2024; continues to improve 08/03: Patient is doing well. Continue incentive spirometry and PEP for 1 week 2. Subjective right upper extremity weakness ? MRI ordered for subsequent eval ? 08/01/2024; MRI did show No evidence for acute infarct. Chronic involutional and white matter changes. 2 cm left frontal extra-axial lesion, most compatible with meningioma.. Every 4 neurochecks discontinued 08/02: Outpatient follow-up with the neurologist and possible neurosurgeon. 3. Hyponatremia ? Suspected to be secondary to fluid overload status 2D echo ordered as part of patient's eval patient started on Lasix ? 08/01/2024; sodium levels improving with diuresis 08/02: Serum sodium 131. 4. Acute on chronic congestive heart failure ? Echo from almost a year ago demonstrated LVEF of 70% repeat echo ordered, Patient placed on strict input and output, daily weight, fluid restriction as well as supplemental oxygen titrated to keep saturation greater than 90 08/02: Echo reviewed. EF 55% with right and left atria moderately enlarged, moderate concentric LVH consistent with HFpEF 08/03: Home dose of Lasix 40 mg increased to 60 mg twice daily. Prescription given. Follow-up in cardiology office. Patient on metoprolol succinate. Advised about fluid restriction and low-sodium diet. 5. Hypertension ? Blood pressure controlled, home medications continued with dose adjustment as needed 6. Paroxysmal A-fib ? Rate controlled with beta-blockers on systemic anticoagulation with apixaban 7. Dyslipidemia -Patient is on statin therapy, continued at home dose 8. Obstructive sleep apnea ? Patient is on BiPAP at night 9. Coronary artery disease ? With previous KARIS to mid RCA lesion patient remains on guideline directed medical therapy 10. COPD ? Currently not in exacerbation aerosol treatment as needed 11. Physical deconditioning - Requested for PT OT eval and medical social consultant to assist with discharge planning 12. Class II obesity with BMI of 38 ? Complicating care weight loss advised 14. BPH with lower urinary obstructive symptoms - Patient treated with finasteride 15. DVT prophylaxis ? On apixaban 2D echo on 07/30/2024 Interpretation Summary The left ventricular ejection fraction is 55 %. Normal LV size. Moderate concentric left ventricular hypertrophy. The left atrium is moderately enlarged. The right atrium is moderately enlarged. Intact atrial septum Contrast injection was performed. Discharge medication reconciliation done. Discharge follow-up instructions completed. Discharge process discussed with the patient and all questions were answered to patient's satisfaction. Follow with PCP in 1 to 2 weeks Total time spent, exact 35 minutes on discharge meds reconciliation, examination, coordination of care with nurses and ancillary staff, review of imaging and blood test and discussion with the patient on follow-up instructions. Medications at Discharge Home Medications cholecalciferol (vitamin D3) 25 mcg (1,000 unit) capsule 25 mcg PO DAILY SUPPLEMENT 06/27/20 finasteride 5 mg tablet 5 mg PO DAILY PROSTATE 06/03/22 nitroglycerin 0.4 mg sublingual tablet 0.4 mg sublingual Q5-15M PRN CHEST PAIN #25 tabs 10/31/22 coenzyme Q10 100 mg capsule (CoQ-10) 100 mg PO DAILY SUPPLEMENT 04/29/23 aspirin 81 mg tablet,delayed release (Adult Aspirin Regimen) 81 mg PO DAILY HEART HEALTH 09/23/23 atorvastatin 20 mg tablet (Lipitor) 20 mg PO DAILY CHOLESTEROL #90 tabs 12/01/23 metoprolol succinate 25 mg tablet,extended release 24 hr 25 mg PO DAILY BLOOD PRESSURE #90 tabs 02/20/24 spironolactone 25 mg tablet 25 mg PO DAILY BLOOD PRESSURE #90 tabs 05/26/24 apixaban 5 mg tablet (Eliquis) 5 mg PO BID BLOOD THINNER #180 tabs 06/11/24 vit C 250 mg-vit E 90 mg-zinc 40 mg-copper 1 ln-tyjsid-lgegeo capsule (PreserVision AREDS-2) 1 tab PO BID supplement 06/14/24 albuterol sulfate 2.5 mg/3 mL (0.083 %) solution for nebulization 2.5 mg (3 mL) inhalation Q4H PRN shortness of breath or wheezing #75 mL 07/26/24 fluticasone 100 mcg-salmeterol 50 mcg/dose blistr powdr for inhalation 1 inh inhalation BID #60 ea 07/26/24 furosemide 40 mg tablet (Lasix) 60 mg (1.5 x 40 mg) PO BID 1 month #90 tabs 08/03/24 sennosides 8.6 mg-docusate sodium 50 mg tablet (Stimulant Laxative Plus) 2 tab PO BID PRN CONSTIPATION #0 tabs 08/03/24 Physical Exam Narrative Seen and examined Leg swelling has gotten much better. Denies shortness of breath or chest pain. No acute cough. Wants to go home Physical exam: General: Alert, Oriented x3, Cooperative HEENT: Atraumatic, PERRLA, EOMI, Normocephalic Oral: No Gingival or Mucosal Lesions/ Ulcerations Neck: Supple, No JVD, Negative Carotid Bruits Chest wall/Lungs: Air entry diminished in bilateral lung bases. No crepitations. Lungs clear Cardiovascular: Regular rate, Regular Rhythm, Normal S1, Normal S2, No M/G/R Abdomen: Bowel Sounds Present, Soft, Non Tender, Non-Distended : No dysuria. No renal angle tenderness. No suprapubic tenderness. Extremities: 2+ bilateral pitting below knee edema, Capillary Refill Less than 3 Seconds Skin: No rashes, No breakdown Musculoskeletal: 4/5 at knees and knee joints. No Tenderness to Palpation of Joints or Extremities Neurological: Cranial nerves II-XII grossly intact, DTR 2+/4. No acute focal neurological deficit. Psych/Mental Status: Flat affect Weight / BMI Weight Weight: 263 lb 0.183 oz Body Mass Index (BMI) 37.7 ABG / Lab / Microbiology Data 08/03/24 05:41 08/03/24 05:41 Laboratory: Laboratory Results - last 24 hr 08/03/24 05:41: WBC 9.3, RBC 3.52 L, Hgb 10.7 L, Hct 30.9 L, MCV 87.8, MCH 30.4, MCHC 34.6, RDW Std Deviation 40.7, RDW Coeff of Armani 12.7, Plt Count 272, MPV 9.9, Immature Gran % (Auto) 0.900, Neut % (Auto) 90.2 H, Lymph % (Auto) 4.9 L, [place] % (Auto) 3.9, Eos % (Auto) 0.0, Baso % (Auto) 0.1, Absolute Neuts (auto) 8.4 H, Absolute Lymphs (auto) 0.46 L, Nucleated RBC % 0, Sodium 131 L, Potassium 4.2, Chloride 103, Carbon Dioxide 21.0, Anion Gap 7, BUN 42 H, Creatinine 1.22, Estim Creat Clear Calc 55.22, Est GFR (MDRD) Af Amer 72, Est GFR (MDRD) Non-Af 60, BUN/Creatinine Ratio 34.4 H, Glucose 153 H, Calcium 8.7 Microbiology: Microbiology 07/30/24 16:50 Urine, Clean Catch Urine Culture - Final Enterobacter cloacae complex 07/31/24 19:12 Urine, Clean Catch Legionella Antigen - Final 07/31/24 19:12 Urine, Clean Catch Streptococcus pneumoniae Antigen (M - Final 07/31/24 01:15 Mucosa - Nasopharyngeal Respiratory Panel (PCR) - Final D/C Instructions Discharge Diet: Low fat / Low cholesterol, 1800 Calorie Control Diet, 8 Cup Fluid Restriction and 2000 mg Sodium Diet Weight Bearing Status: Weight bearing as tolerated Call your doctor if you observe: Fever of 101 or Higher, Coldness, Increased Pain, Numbness or Tingling, Change in Color, Inability to urinate, Inability to have a bowel movement, Shortness of breath, Dizziness, Fainting spells, Swelling in the ankles, Chest pain, Prolonged hiccupping, Increased palpitations (irregular heartbeat) and Calf discomfort DC O2, CPAP, BIPAP Needs RN Home O2 Qualification: Home O2 Qualification: Is the patient on home oxygen No 08/03/24 09:15 Home O2 Qualification: AT REST 1- Pulse Ox at rest 98 08/03/24 09:15 Home O2 Qualification: WITH AMBULATION 1- Pulse Ox with ambulation 97 08/03/24 09:15 1- Oxygen Flow Rate with 0 08/03/24 09:15 ambulation Home O2 Discharge instructions: No When: IN 2 WEEKS Meaningful Use Info Meaningful Use Meaningful Use Diagnoses (Choose all that apply): None applicable Ischemic Stroke Statin Dosing Therapy Reference: STATIN DOSE THERAPY REFERENCE: * Patients > 75 years receive moderate or high dose statin therapy. * Patients 75 years or YOUNGER should receive HIGH intensity statin dose unless contraindicated. You will be required to document reason for non-treatment if statin daily dose does not meet guidelines. HIGH DOSE STATIN THERAPY DAILY Atorvastatin > than or = to 40 mg Rosuvastatin > than or = to 20 mg Amlodipine + Atorvastatin > than or = to 2.5/40 mg Ezetimibe + Simvastatin 10/80 mg Simvastatin 80mg Discharge Plan Admission Admit Date/Time: 07/30/24 19:01 Attending Provider: Robbie Lowry Primary Care Provider: Daphne Woods Consulting Providers: Olivia Meza; Yayo Esquivel Discharge Orders/Prescriptions Prescriptions: New sennosides-docusate sodium [Stimulant Laxative Plus] 8.6-50 mg Tablet 2 tab PO BID PRN (Reason: CONSTIPATION) Qty: 0 0RF Rx Instructions: OTC Continued cholecalciferol (vitamin D3) 25 mcg (1,000 unit) capsule 25 mcg PO DAILY PreserVision AREDS-2 250-90-40-1 mg capsule 1 tab PO BID Rx Instructions: administer with meals finasteride 5 mg tablet 5 mg PO DAILY nitroglycerin 0.4 mg tablet, sublingual 0.4 mg SUBLINGUAL Q5-15M PRN (Reason: CHEST PAIN ) Qty: 25 3RF Rx Instructions: do not exceed 3 doses per episode coenzyme Q10 [CoQ-10] 100 mg capsule 100 mg PO DAILY atorvastatin [Lipitor] 20 mg tablet 20 mg PO DAILY Qty: 90 3RF albuterol sulfate 2.5 mg /3 mL (0.083 %) solution for nebulization 2.5 mg inhalation Q4H PRN (Reason: shortness of breath or wheezing) Qty: 75 1RF fluticasone propion-salmeterol 100-50 mcg/dose blister with device 1 inh inhalation BID Qty: 60 5RF aspirin [Adult Aspirin Regimen] 81 mg tablet,delayed release (DR/EC) 81 mg PO DAILY metoprolol succinate 25 mg tablet extended release 24 hr 25 mg PO DAILY Qty: 90 3RF spironolactone 25 mg tablet 25 mg PO DAILY Qty: 90 3RF Eliquis 5 mg tablet 5 mg PO BID Qty: 180 4RF Changed furosemide [Lasix] 40 mg tablet 60 mg PO BID 30 Days Qty: 90 3RF Discontinued mndieqdg-ylhd-zgemr-oreg-capry 100 mg-150 mg- 50 mg-150 mg capsule 1 cap PO DAILY Referrals / Follow Up: Daphne Woods MD [Primary Care Provider] - 08/05/24 11:00 am Robby Peralta NP, [facility] [Med Staff - [facility] Practice Prof] - 08/26/24 4:00 pm Disposition Disposition (needs filled in before D/C Order can be placed): Home Health Service Charges/Coding Visit Charges Inpatient E&M: 44538 Disch Hosp >30min
--- NOTE | 2024-08-03 10:10 | CASEMGMT ---
Discharge Planning Discharge instructions sent to [facility]. SOC will be within 48hrs of discharge. Crystal Krause DC Planning Asst.
[2024-08-03 10:31] VITALS: BP 108/64; PULSE 56; RESP 16; TEMP 36.6; O2SAT 98
[2024-08-03] MEDS: Spironolactone 25 MG Tablet PO (10:32)
[2024-08-03] MEDS: Aspirin E.C. 81 MG Tablet PO (10:32)
[2024-08-03] MEDS: Finasteride 5 MG Tablet PO (10:32)
[2024-08-03] MEDS: APIXABAN 5 MG TABLET PO (10:32)
[2024-08-03] MEDS: Furosemide 20 MG Tablet 60 MG PO (10:32)
[2024-08-03 10:34] VITALS: BP 108/64; PULSE 56
[2024-08-03] MEDS: Menthol/Lanolin/Calamine/Znox 113 GM Tube 1 APPLIC TOPICAL (10:34)
--- NOTE | 2024-08-03 11:03 | CASEMGMT ---
Patient has order for discharge. [place] city planning aide updated [facility] that patient is discharging today, start of care planned for Friday or . RN CM in to update patient regarding resumption of [facility]HC, on phone. Patient and denied further needs or concerns at discharge. Patient and had no further questions. Discharge plan updated.
[2024-08-03 12:10] VITALS: BP 108/64; PULSE 56; RESP 16; TEMP 36.7; O2SAT 98
== END 2024-08-03 12:09 | disposition home health service (06) | DRG 291 ==
LOC: ED 17:56 → PCU 19:18
PROVIDERS: Internal Medicine; Admitting Provider Family Medicine; Emergency Provider Emergency Medicine; PCP Internal Medicine; Visit Provider Internal Medicine
DX: I11.0 Hypertensive heart disease with heart failure (principal); I50.33 Acute on chronic diastolic (congestive) heart failure; G93.40 Encephalopathy, unspecified; E87.1 Hypo-osmolality and hyponatremia; N13.8 Other obstructive and reflux uropathy; J44.9 Chronic obstructive pulmonary disease, unspecified; E66.812 Obesity, class 2; I48.0 Paroxysmal atrial fibrillation; D32.0 Benign neoplasm of cerebral meninges; G47.33 Obstructive sleep apnea (adult) (pediatric); I25.10 Atherosclerotic heart disease of native coronary artery without angina pectoris; E78.5 Hyperlipidemia, unspecified; M19.90 Unspecified osteoarthritis, unspecified site; R54 Age-related physical debility; Z79.01 Long term (current) use of anticoagulants; R27.0 Ataxia, unspecified; Z95.5 Presence of coronary angioplasty implant and graft; Z87.891 Personal history of nicotine dependence; Z68.38 Body mass index [BMI] 38.0-38.9, adult; R09.02 Hypoxemia; N40.1 Benign prostatic hyperplasia with lower urinary tract symptoms; Z86.16 Personal history of COVID-19; Z99.89 Dependence on other enabling machines and devices; Z87.440 Personal history of urinary (tract) infections; R29.898 Other symptoms and signs involving the musculoskeletal system
CPT/HCPCS: 36415; 70450; 70496; 70498; 70551; 71046; 80048; 80053; 80061; 81001; 83036; 83735; 83880; 84100; 84145; 84443; 85025; 87077; 87086; 87088; 87186; 87449; 87633; 92523; 93005; 93306; 94640; 94668; 94762; 97116; 97129; 97130; 97162; 97165; 97530; 97802; 99285; 99406; Q9957; Q9967; A4216; C8929; J1940

== ENCOUNTER → 2024-08-09 | Outpatient (CLI) | payer MEDICARE, OTHER, SELFPAY ==
[2023-09-26 15:39] VITALS: BMI 35.6
[2024-08-09 17:16] LABS: Anion Gap 9 (5-15); BUN 24 mg/dL (7-18); BUN/Creat Ratio 20.9 RATIO (10-20); Calcium,Total 8.9 mg/dL (8.5-10.1); Chloride 96 mmol/L (98-107); Creatinine, Serum 1.15 mg/dL (0.70-1.30); EST Glomerular Filtration Rate 64 mL/min (>60); Est Glom Filt Rate - Afr Amer 77 mL/min (>60); Glucose 64 mg/dL (74-106); Potassium 4.3 mmol/L (3.5-5.1); Sodium Level 130 mmol/L (136-145)
== END | disposition home or self-care (01) ==
LOC: BIMLAB 15:24
PROVIDERS: PCP Internal Medicine; Referring Provider Internal Medicine; Visit Provider Internal Medicine
DX: I25.10 Atherosclerotic heart disease of native coronary artery without angina pectoris (principal); I50.32 Chronic diastolic (congestive) heart failure; J44.9 Chronic obstructive pulmonary disease, unspecified; Z79.01 Long term (current) use of anticoagulants; Z95.5 Presence of coronary angioplasty implant and graft
CPT/HCPCS: 36415; 80048; 83735

== ENCOUNTER 2024-08-18 15:19 | Emergency (ER) | payer MEDICARE, OTHER, SELFPAY ==
[2023-09-26 15:39] VITALS: BMI 35.6
[2024-08-18] VITALS (9 sets, daily range): BP systolic 95–118; BP diastolic 47–76; PULSE 59–68; RESP 16–19; TEMP 36.4–36.7; O2SAT 98–100; BMI 37.5
--- NOTE | 2024-08-18 17:45 | EKG12_ITS ---
Test Reason : Blood Pressure : */* mmHG Vent. 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
--- NOTE | 2024-08-18 17:50 | EX.ED.DYSGE1 ---
HPI History of Present Illness Chief Complaint: Edema Informant: patient and spouse/S.O. Narrative Narrative: 89-year-old male with a history of lower extremity edema/diastolic CHF on Lasix and spironolactone presenting to the emergency room with worsening swelling and redness and pain. Patient has a history of atrial fibrillation and is on apixaban. He states about 4 days ago he began to have swelling and redness in both legs. He notes that the right is particularly painful. He denies any fevers. He states he has been urinating normally. He went to urgent care where they were concerned for DVT of the right leg because he had pain in his calf. And they sent him to the emergency. He follows locally with Dr. Kwok for primary care as well as [facility]. He has had a prior cellulitis infection of the legs. He denies any shortness of breath. Patient recently (13 August) underwent a third knee injection with orthopedics of Euf[facility]. [facility] Medical History Right leg pain Atrial fibrillation with normal ventricular rate Hypoxia Depression Congestive heart failure (CHF) Cellulitis of leg without foot, left UTI (urinary tract infection) Smoker Chest pain Atrial fibrillation Anemia Skin tear High cholesterol Shortness of breath on exertion History of echocardiogram History of stress test Olecranon bursitis, right elbow Strain of tendon of right rotator cuff Insect bite of hand with infection Wears glasses Wears hearing aid Wears partial dentures Rash Arthritis Chewing tobacco use Non-smoker History of edema Cardiology follow-up encounter Syncope and collapse Persistent atrial fibrillation Epistaxis Chronic diastolic (congestive) heart failure 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 Hyperlipidemia Essential (primary) hypertension Obstructive sleep apnea Hypersomnia Hypoxia Renal cyst Diverticulitis Leg swelling Hiatal hernia COPD (chronic obstructive pulmonary disease) Home Medications ?Medication ?Instructions ?Recorded ?Last Taken ?Type cholecalciferol (vitamin D3) 25 25 mcg PO DAILY SUPPLEMENT 06/27/20 09/22/23 History mcg (1,000 unit) capsule finasteride 5 mg tablet 5 mg PO DAILY PROSTATE 06/03/22 09/22/23 History nitroglycerin 0.4 mg sublingual 0.4 mg sublingual Q5-15M PRN CHEST 10/31/22 Unknown Rx tablet PAIN #25 tabs coenzyme Q10 100 mg capsule 100 mg PO DAILY SUPPLEMENT 04/29/23 09/22/23 History (CoQ-10) aspirin 81 mg tablet,delayed 81 mg PO DAILY HEART HEALTH 09/23/23 09/22/23 History release (Adult Aspirin Regimen) atorvastatin 20 mg tablet (Lipitor) 20 mg PO DAILY CHOLESTEROL #90 12/01/23 Unknown Rx tabs metoprolol succinate 25 mg 25 mg PO DAILY BLOOD PRESSURE #90 02/20/24 Unknown Rx tablet,extended release 24 hr tabs spironolactone 25 mg tablet 25 mg PO DAILY BLOOD PRESSURE #90 05/26/24 Unknown Rx tabs apixaban 5 mg tablet (Eliquis) 5 mg PO BID BLOOD THINNER #180 06/11/24 Unknown Rx tabs vit C 250 mg-vit E 90 mg-zinc 40 1 tab PO BID supplement 06/14/24 Unknown History mg-copper 1 [id number] capsule (PreserVision AREDS-2) albuterol sulfate 2.5 mg/3 mL 2.5 mg (3 mL) inhalation Q4H PRN 07/26/24 Unknown Rx (0.083 %) solution for nebulization shortness of breath or wheezing #75 mL fluticasone 100 mcg-salmeterol 50 1 inh inhalation BID #60 ea 07/26/24 Unknown Rx mcg/dose blistr powdr for inhalation furosemide 40 mg tablet (Lasix) 60 mg (1.5 x 40 mg) PO BID 1 month 08/03/24 Unknown Rx #90 tabs sennosides 8.6 mg-docusate sodium 2 tab PO BID PRN CONSTIPATION #0 08/03/24 Unknown Rx 50 mg tablet (Stimulant Laxative tabs Plus) cephalexin 500 mg capsule 500 mg PO Q6 #40 CAPSULES 08/18/24 Unknown Rx Allergy/AdvReac Type Severity Reaction Status Date / Time peanut Allergy Itching Verified 08/18/24 17:20 levofloxacin (From Levaquin) AdvReac Rash Verified 08/18/24 17:20 Family History Brother Colon cancer Mother Hypertension Father Hypertension Other No pertinent family history Surgical History History of cardiac catheterization History of coronary artery stent placement (08/17/20) History of colonoscopy with polypectomy History of transurethral resection of prostate History of orchiectomy History of cataract surgery Social History household members: spouse Smoking Status: Former smoker alcohol intake: never substance use type: does not use caffeine: Yes Type: coffee Number of servings: 2 ROS ROS ED Constitutional Constitutional ED: Denies chills, fever(s) or weight loss Eyes Eyes: Denies change in vision or diplopia ENT ENT ED: Denies ear pain, rhinorrhea or sore throat Cardiovascular Cardiovascular: Denies chest pain, orthopnea, palpitations or racing heartbeat Respiratory/Chest Respiratory/Chest: Denies cough, dyspnea or orthopnea Gastrointestinal Gastrointestinal: Denies abdominal pain, diarrhea, nausea or vomiting Genitourinary Genitourinary ED: Denies dysuria, hematuria or urinary frequency Musculoskeletal Musculoskeletal: Reports other Details: See history of present illness ; Denies arthralgias or myalgias Integumentary Reports rash; Denies abscess Neurologic Neurologic: Denies headache(s) or weakness Psychiatric Psychiatric: Denies anxiety, depression, suicidal ideation or suicidal thoughts Endocrine Endocrinology: Denies polydipsia, polyphagia or polyuria Allergic/Immunologic Allergic/Immunologic ED: Denies mouth swelling, tongue swelling or urticaria EXAM Physical Exam Const Vital Signs: 08/18/24 15:20 08/18/24 15:23 08/18/24 17:13 Temperature 97.6 F L 97.6 F L 98.0 F Temperature Source Oral Oral Oral Pulse Rate 59 L 59 L 63 Respiratory Rate 16 16 16 Respiratory Effort Respiratory Pattern Blood Pressure 104/53 L 104/53 L 105/47 L Blood Pressure Mean 70 70 66 Pulse Ox 100 100 98 Oxygen Delivery Method Room Air Room Air Room Air 08/18/24 17:15 08/18/24 17:20 08/18/24 18:00 Temperature 97.9 F Temperature Source Oral Pulse Rate 61 59 L Respiratory Rate 19 H 16 Respiratory Effort Normal Respiratory Pattern Normal Blood Pressure 108/76 95/68 Blood Pressure Mean 86 77 Pulse Ox 100 100 Oxygen Delivery Method Room Air Room Air 08/18/24 19:00 08/18/24 20:00 08/18/24 21:00 Temperature 97.6 F L 97.6 F L 97.7 F L Temperature Source Oral Oral Oral Pulse Rate 62 64 68 Respiratory Rate 18 16 18 Respiratory Effort Respiratory Pattern Blood Pressure 118/72 111/63 115/67 Blood Pressure Mean 87 79 83 Pulse Ox 100 100 100 Oxygen Delivery Method Room Air Room Air 08/18/24 21:29 Temperature 97.7 F L Temperature Source Pulse Rate 65 Respiratory Rate 18 Respiratory Effort Respiratory Pattern Blood Pressure 115/67 Blood Pressure Mean 83 Pulse Ox 100 Oxygen Delivery Method Positive well nourished and well developed General Appearance ED: well developed and NAD HEENT Reports normocephalic, head/scalp atraumatic and moist mucous membranes Eyes PERRL and EOMs intact bilaterally Neck no lymphadenopathy, supple and no JVD Resp normal respiratory effort and clear to auscultation bilaterally Cardio regular rate, regular rhythm and no murmurs GI normal to inspection, nondistended, normoactive bowel sounds and non-tender Palpation: soft Back/Spine no CVA tenderness and normal ROM Extremity Extremity Narrative: Bilateral lower extremity edema. There is erythema and increased warmth of the bilateral feet and lower legs. There is no weeping. No lymphangitic streaking. The right leg and foot are very sensitive to touch. General Extremety ED: Yes edema General Extremity: edema bilateral lower extremity Details: moderate Neuro oriented x3 and CN's II-XII intact bilaterally Sensorium / Orientation: alert Motor Exam: strength 5/5 throughout Psych mental status grossly normal Mood & Affect: Negative for depressed or tearful Skin no rashes or lesions noted and no wounds MDM MDM MDM Narrative Medical decision making narrative: Differential diagnosis includes but not limited to lymphedema cellulitis DVT diastolic CHF Patient's EKG shows atrial fibrillation with right bundle branch block. White count is normal at 8.5 hemoglobin of 11.3 plate count of 221. Patient's creatinine is 1.24. Troponin 81. Patient has no chest pain no shortness of breath. BNP 148.8 urinalysis. Patient is anticoagulated his symptoms are less likely to be DVT related however the patient would like a DVT study as this is why he was sent to emergency. Negative duplex ultrasound of the right lower extremities negative for DVT. My independent interpretation of the chest x-ray is no overt failure. Blood cultures were obtained the patient received Ancef. The patient's stay in the emergency department was significantly prolonged due to getting the results of his BMP back. His BMP is not significantly different from baseline. I spoke with the patient at length. I talked about admission versus sending him home. He states he has been sent home with antibiotics and did not require hospitalization. However at that time they were able to increase his Lasix. He was recently had his Lasix up to 60 mg twice a day is still on that dose. He would like to go home on antibiotics and states that if he is worsening or not improving he will return. He states that he will follow-up with his family doctor if needed. I do not think that this is an unreasonable plan as he is not febrile he has no significant leukocytosis and he has not been on antibiotic except. History & Record Review Discussion w/independent historian: Patient and Family Lab Data Attestation: I reviewed the patient's lab results. Labs: Laboratory Results - last 24 hr 08/18/24 08/18/24 18:05 18:21 WBC 8.5 RBC 3.71 L Hgb 11.3 L Hct 33.2 L MCV 89.5 MCH 30.5 MCHC 34.0 RDW Std Deviation 42.5 RDW Coeff of Armani 13.2 Plt Count 221 MPV 9.8 Immature Gran % (Auto) 0.400 Neut % (Auto) 79.4 H Lymph % (Auto) 11.1 L [place] % (Auto) 6.2 Eos % (Auto) 2.2 Baso % (Auto) 0.7 Absolute Neuts (auto) 6.8 Absolute Lymphs (auto) 0.94 Nucleated RBC % 0 Sodium 129 L Potassium 3.9 Chloride 97 L Carbon Dioxide 23.0 Anion Gap 9 BUN 24 H Creatinine 1.24 Estim Creat Clear Calc 54.14 Est GFR (MDRD) Af Amer 71 Est GFR (MDRD) Non-Af 59 L BUN/Creatinine Ratio 19.4 Glucose 120 H Calcium 9.2 Total Bilirubin 0.80 Direct Bilirubin 0.33 H AST 25 ALT 22 Alkaline Phosphatase 139 H Troponin I High Sens 81 H B-Natriuretic Peptide 148.8 H Total Protein 7.0 Albumin 2.9 L Globulin 4.1 Urine Color Yellow Urine Clarity Clear Urine pH 7.0 Ur Specific [place] 1.010 Urine Protein Negative Urine Glucose (UA) Normal Urine Ketones Negative Urine Occult Blood Negative Urine Nitrite Negative Urine Bilirubin Negative Urine Urobilinogen Normal Ur Leukocyte Esterase Negative Urine RBC 0 SEEN Urine WBC 0 SEEN Ur Squamous Epith Cells 0 SEEN Urine Bacteria 0 SEEN Urine Mucus 0 SEEN Radiography Diagnostic Testing: Clinical Impression(s) from Imaging Studies Venous Duplex 08/18/24 17:51 IMPRESSION: No DVT. Reading Location: [facility] Chest X-Ray 08/18/24 18:18 IMPRESSION: Lungs appear clear of acute disease. No pleural effusion or pneumothorax is seen. The cardiomediastinal silhouette is within the normal range. No acute osseous changes evident. No evidence of acute cardiopulmonary disease. Reading Location: [address] EKG Initial EKG: Attestation: I personally reviewed and interpreted this EKG as follows: Comments: Atrial fibrillation with ventricular rate of 65 bpm. Right bundle branch block noted. Discharge Plan Triage Chief Complaint: Edema ED Provider: Valente Coleman Dx/Rx/DC Orders Clinical Impression: Diastolic CHF, Bilateral cellulitis of lower leg Instructions: ED Cellulitis Prescriptions: New cephalexin 500 mg capsule 500 mg PO Q6 Qty: 40 0RF No Action cholecalciferol (vitamin D3) 25 mcg (1,000 unit) capsule 25 mcg PO DAILY PreserVision AREDS-2 250-90-40-1 mg capsule 1 tab PO BID Rx Instructions: administer with meals finasteride 5 mg tablet 5 mg PO DAILY nitroglycerin 0.4 mg tablet, sublingual 0.4 mg SUBLINGUAL Q5-15M PRN (Reason: CHEST PAIN ) Qty: 25 3RF Rx Instructions: do not exceed 3 doses per episode coenzyme Q10 [CoQ-10] 100 mg capsule 100 mg PO DAILY atorvastatin [Lipitor] 20 mg tablet 20 mg PO DAILY Qty: 90 3RF albuterol sulfate 2.5 mg /3 mL (0.083 %) solution for nebulization 2.5 mg inhalation Q4H PRN (Reason: shortness of breath or wheezing) Qty: 75 1RF fluticasone propion-salmeterol 100-50 mcg/dose blister with device 1 inh inhalation BID Qty: 60 5RF aspirin [Adult Aspirin Regimen] 81 mg tablet,delayed release (DR/EC) 81 mg PO DAILY sennosides-docusate sodium [Stimulant Laxative Plus] 8.6-50 mg Tablet 2 tab PO BID PRN (Reason: CONSTIPATION) Qty: 0 0RF Rx Instructions: OTC furosemide [Lasix] 40 mg tablet 60 mg PO BID 30 Days Qty: 90 3RF metoprolol succinate 25 mg tablet extended release 24 hr 25 mg PO DAILY Qty: 90 3RF spironolactone 25 mg tablet 25 mg PO DAILY Qty: 90 3RF Eliquis 5 mg tablet 5 mg PO BID Qty: 180 4RF Primary Care Provider: Daphne Woods Referrals: Daphne Woods MD [Primary Care Provider] - Activity Restrictions/Additional Instructions: If you are worsening (increased pain, fever, worsening swelling, shortness of breath etc.) these return to emergency. Please follow-up with primary care if you are doing better. Print Language: Ethiopian Disposition Disposition: Home, Self Care Discharge Date/Time: 08/18/24 21:55
--- NOTE | 2024-08-18 17:51 | US_ITS ---
PROCEDURE: VENOUS DUPLEX IMAG/LIMITED/UNI REASON FOR EXAM: Swelling and redness. TECHNIQUE: Ultrasound imaging of the right lower extremity and contralateral left common femoral vein. COMPARISON: None. FINDINGS: No evidence of DVT. DOPPLER: Color Doppler: Normal color flow doppler signal Spectral Doppler: Normal arterial inflow and venous outflow signal US/Venous Duplex Imag/Limited/Uni IMPRESSION: No DVT. Reading Location: [id number]
--- NOTE | 2024-08-18 18:18 | RAD_ITS ---
PROCEDURE: CHEST 1 VIEW (PORTABLE) REASON FOR EXAM: CHF. TECHNIQUE: Two-view AP portable upright chest.. COMPARISON: None. RAD/Chest 1 View (Portable) IMPRESSION: Lungs appear clear of acute disease. No pleural effusion or pneumothorax is seen. The cardiomediastinal silhouette is within the normal range. No acute osseous changes evident. No evidence of acute cardiopulmonary disease. Reading Location: [id number]
[2024-08-18 18:20] LABS: Absolute Lymphocyte Count 0.94 X10^3/uL (0.83-4.51); Absolute Neutrophil Count 6.8 X10^3/uL (2.0-7.7); Basophil# 0.06 X10^3/uL; Basophil% 0.7 % (0-1); Eosinophil# 0.19 X10^3/uL; Eosinophils% 2.2 % (0-5); Hematocrit 33.2 % (40-54); Hemoglobin 11.3 g/dL (13.0-16.5); Lymphocyte # 0.94 X10^3/ul (0.83-4.51); Lymphocyte % 11.1 % (19-41); Mean Corpuscular Hgb 30.5 pg (27.0-32.0); Mean Corpuscular Volume 89.5 fL (80-94); Mean Platelet Vol. 9.8 fl (6.2-12.0); Monocyte# 0.53 X10^3/uL; Monocyte% 6.2 % (0-10); NRBC Flagged by Analyzer 0 % (0-5); Neutrophil # 6.75 X10^3/uL (2.7-7.7); Neutrophil % 79.4 % (47-70); Platelet Count 221 K/mm3 (150-450); RBC Distribution Width CV 13.2 % (11.6-14.6); RBC Distribution Width SD 42.5 fl (35.1-43.9); Red Blood Count 3.71 M/mm3 (4.6-6.2); White Blood Count 8.5 K/mm3 (4.4-11.0)
[2024-08-18 18:31] LABS: Bacteria 0 SEEN /hpf (None Seen); Mucous, Urine 0 SEEN /hpf (<or=2+); Red Blood Cells-Urine 0 SEEN /hpf (0-5); Squamous Epithelial Cells - UA 0 SEEN /hpf (0-5); White Blood Cells 0 SEEN /hpf (0-5)
[2024-08-18 18:43] LABS: AST(SGOT) 25 U/L (15-37); Alanine Aminotransfer ALT/SGPT 22 U/L (16-61); Albumin, Serum 2.9 g/dL (3.2-5.0); Alkaline Phosphatase 139 U/L (45-117); Anion Gap 9 (5-15); BUN 24 mg/dL (7-18); BUN/Creat Ratio 19.4 RATIO (10-20); Bilirubin, Direct 0.33 mg/dL (0.00-0.30); Calcium,Total 9.2 mg/dL (8.5-10.1); Chloride 97 mmol/L (98-107); Creatinine, Serum 1.24 mg/dL (0.70-1.30); EST Glomerular Filtration Rate 59 mL/min (>60); Est Glom Filt Rate - Afr Amer 71 mL/min (>60); Estimated Creatinine Clearance 54.14 ml/min; Globulin 4.1 g/dL (2.2-4.2); Glucose 120 mg/dL (74-106); Potassium 3.9 mmol/L (3.5-5.1); Sodium Level 129 mmol/L (136-145); Troponin-I HS 81 pg/mL (3.0-78.0)
[2024-08-18 18:46] LABS: Color, Urine Yellow (Yellow); Glucose, Dipstick Normal (Normal); Ketone-Dipstick Negative (Negative); Leukocyte Esterase-Dipstick Negative /ul (Negative); Nitrite-Dipstick Negative (Negative); Occult Blood-Urine Negative /ul (Negative); Protein-Dipstick Negative (Negative); Urine Bilirubin Dipstick Negative (Negative); Urine Clarity Clear (Clear); Urine Urobilinogen Normal (Normal)
[2024-08-18] MEDS: CEFAZOLIN IV (20:20)
[2024-08-18] MEDS: NORMAL SALINE 0.9% IV (20:20)
[2024-08-18 21:33] LABS: BNP,B-Type NATRIURETIC PEPTIDE 148.8 pg/mL (0-100)
== END 2024-08-18 21:55 | disposition home or self-care (01) ==
PROVIDERS: Emergency Provider Emergency Medicine; PCP Internal Medicine; Visit Provider Emergency Medicine
DX: L03.115 Cellulitis of right lower limb (principal); I11.0 Hypertensive heart disease with heart failure; I50.32 Chronic diastolic (congestive) heart failure; J44.9 Chronic obstructive pulmonary disease, unspecified; I48.91 Unspecified atrial fibrillation; I25.10 Atherosclerotic heart disease of native coronary artery without angina pectoris; Z87.891 Personal history of nicotine dependence; E78.00 Pure hypercholesterolemia, unspecified; Z79.899 Other long term (current) drug therapy; Z79.01 Long term (current) use of anticoagulants; R60.0 Localized edema; I45.10 Unspecified right bundle-branch block; L03.116 Cellulitis of left lower limb
CPT/HCPCS: 71045; 80048; 80076; 81001; 83880; 84484; 85025; 87040; 93005; 93971; 96365; 99284; A4216

== ENCOUNTER → 2024-09-13 | Outpatient (CLI) | payer MEDICARE, OTHER, SELFPAY ==
[2024-09-03 08:27] VITALS: BMI 35.6
== END | disposition home or self-care (01) ==
LOC: LABSPEC 13:00
PROVIDERS: PCP Internal Medicine; Visit Provider Nurse Practitioner Family
DX: R82.90 Unspecified abnormal findings in urine (principal)
CPT/HCPCS: 87086; 87088; 87186

== ENCOUNTER → 2024-09-15 | Outpatient (CLI) | payer MEDICARE, OTHER, SELFPAY ==
[2024-09-03 08:27] VITALS: BMI 35.6
[2024-09-15 15:48] LABS: Anion Gap 11 (5-15); BUN 18 mg/dL (4-19); BUN/Creat Ratio 14.4 RATIO (10-20); Calcium 9.5 mg/dL (7.6-11.0); Carbon Dioxide 18.9 mmol/L (22.0-29.0); Chloride 98 mmol/L (96-108); Creatinine, Serum 1.3 mg/dL (0.8-1.3); EST Glomerular Filtration Rate 55 (>60); Glucose 102 mg/dL (70-99); Potassium 4.6 mmol/L (3.3-5.1); Sodium Level 128 mmol/L (133-145)
== END | disposition home or self-care (01) ==
LOC: BIMLAB 13:11
PROVIDERS: PCP Internal Medicine; Referring Provider Nurse Practitioner Family; Visit Provider Nurse Practitioner Family
DX: R06.00 Dyspnea, unspecified (principal); E87.1 Hypo-osmolality and hyponatremia
CPT/HCPCS: 36415; 80048

== ENCOUNTER → 2024-09-28 | Outpatient (CLI) | payer MEDICARE, OTHER, SELFPAY ==
[2024-09-03 08:27] VITALS: BMI 35.6
[2024-09-28 20:05] LABS: Anion Gap 13 (5-15); BUN 26 mg/dL (4-19); BUN/Creat Ratio 22.7 RATIO (10-20); Calcium,Total 9.7 mg/dL (7.6-11.0); Chloride 99 mmol/L (98-108); Creatinine, Serum 1.13 mg/dL (0.70-1.20); EST Glomerular Filtration Rate 63 (>60); Glucose 86 mg/dL (70-99); Potassium 4.6 mmol/L (3.3-5.1); Sodium Level 133 mmol/L (133-145)
== END | disposition home or self-care (01) ==
LOC: BIMLAB 13:12
PROVIDERS: PCP Internal Medicine; Visit Provider Nurse Practitioner Family
DX: E87.1 Hypo-osmolality and hyponatremia (principal)
CPT/HCPCS: 36415; 80048

== ENCOUNTER → 2024-10-07 | Outpatient (CLI) | payer MEDICARE, OTHER, SELFPAY ==
[2024-09-03 08:27] VITALS: BMI 35.6
[2024-10-07 13:54] LABS: Mucous, Urine 0 SEEN /hpf (<or=2+)
[2024-10-07 15:33] LABS: Color, Urine Yellow (Yellow); Glucose, Dipstick Normal (Normal); Ketone-Dipstick Negative (Negative); Leukocyte Esterase-Dipstick 500 /ul (Negative); Nitrite-Dipstick Negative (Negative); Occult Blood-Urine 250 /ul (Negative); Protein-Dipstick 100 mg/dl (Negative); Specific Gravity, Urine 1.015 (1.002-1.030); Urine Bilirubin Dipstick Negative (Negative); Urine Clarity Cloudy (Clear); Urine Urobilinogen Normal (Normal)
[2024-10-07 16:14] LABS: Red Blood Cells-Urine 10-25 SEEN /hpf (0-5); White Blood Cells >100 SEEN /hpf (0-5)
[2024-10-07 16:15] LABS: Bacteria 1+ /hpf (None Seen)
[2024-10-07 16:16] LABS: Squamous Epithelial Cells - UA 0-5 SEEN /hpf (0-5)
== END | disposition home or self-care (01) ==
LOC: LABSPEC 13:43
PROVIDERS: PCP Internal Medicine; Referring Provider Internal Medicine; Visit Provider Internal Medicine
DX: N30.01 Acute cystitis with hematuria (principal)
CPT/HCPCS: 81001; 87086; 87088; 87186

== ENCOUNTER → 2024-10-11 | Outpatient (CLI) | payer MEDICARE, OTHER, SELFPAY ==
[2024-09-03 08:27] VITALS: BMI 35.6
[2024-10-11 16:24] LABS: Anion Gap 13 (5-15); BUN 27 mg/dL (4-19); BUN/Creat Ratio 23.9 RATIO (10-20); Calcium,Total 9.5 mg/dL (7.6-11.0); Carbon Dioxide 22.4 mmol/L (21.0-32.0); Chloride 96 mmol/L (98-108); Creatinine, Serum 1.14 mg/dL (0.70-1.20); EST Glomerular Filtration Rate 62 (>60); Glucose 96 mg/dL (70-99); Potassium 4.6 mmol/L (3.3-5.1); Pro- Brain NATRIURETIC PEPTIDE 1834 pg/mL (<=1800); Sodium Level 131 mmol/L (133-145)
== END | disposition home or self-care (01) ==
PROVIDERS: PCP Internal Medicine; Referring Provider Physician Assistant Medical; Visit Provider Physician Assistant Medical
DX: R06.02 Shortness of breath (principal); I50.32 Chronic diastolic (congestive) heart failure; Z51.81 Encounter for therapeutic drug level monitoring; Z79.899 Other long term (current) drug therapy
CPT/HCPCS: 36415; 80048; 83880

== ENCOUNTER → 2024-10-18 | Outpatient (CLI) | payer MEDICARE, OTHER, SELFPAY ==
[2024-09-03 08:27] VITALS: BMI 35.6
[2024-10-18 12:07] LABS: Mucous, Urine 0 SEEN /hpf (<or=2+)
[2024-10-18 16:31] LABS: Color, Urine Yellow (Yellow); Glucose, Dipstick Normal (Normal); Ketone-Dipstick Negative (Negative); Leukocyte Esterase-Dipstick 500 /ul (Negative); Nitrite-Dipstick Negative (Negative); Occult Blood-Urine 250 /ul (Negative); Protein-Dipstick 100 mg/dl (Negative); Specific Gravity, Urine 1.015 (1.002-1.030); Urine Bilirubin Dipstick Negative (Negative); Urine Clarity Cloudy (Clear); Urine Urobilinogen Normal (Normal)
[2024-10-18 16:56] LABS: Red Blood Cells-Urine 10-25 SEEN /hpf (0-5); White Blood Cells >100 SEEN /hpf (0-5)
[2024-10-18 16:57] LABS: Bacteria 1+ /hpf (None Seen); Squamous Epithelial Cells - UA 0-5 SEEN /hpf (0-5)
== END | disposition home or self-care (01) ==
LOC: LABSPEC 12:05
PROVIDERS: PCP Internal Medicine; Referring Provider Internal Medicine; Visit Provider Internal Medicine
DX: N30.01 Acute cystitis with hematuria (principal)
CPT/HCPCS: 81001; 87077; 87086; 87088; 87186

== ENCOUNTER → 2024-10-28 | Outpatient (CLI) | payer MEDICARE, OTHER, SELFPAY ==
[2024-09-03 08:27] VITALS: BMI 35.6
== END | disposition home or self-care (01) ==
LOC: LABSPEC 16:00
PROVIDERS: PCP Internal Medicine; Referring Provider Urology; Visit Provider Urology
DX: N39.0 Urinary tract infection, site not specified (principal)
CPT/HCPCS: 87077; 87086; 87088

== ENCOUNTER 2024-12-20 11:00 | Inpatient (IN) | payer MEDICARE, OTHER, SELFPAY ==
[2024-09-03 08:27] VITALS: BMI 35.6
[2024-12-20] VITALS (13 sets, daily range): BP systolic 106–136; BP diastolic 61–104; PULSE 54–74; RESP 16–23; TEMP 36.8–37; O2SAT 96–100; BMI 38.4; BMI 35.5
--- NOTE | 2024-12-20 11:27 | RAD_ITS ---
PROCEDURE: CHEST PA AND LATERAL 12/20/2024 REASON FOR EXAM: WEAKNESS TECHNIQUE: Frontal and lateral views of the chest. COMPARISON: 08/18/2024 FINDINGS: Lungs: Lungs clear of pneumonia and congestion. Pleura: No pleural effusions, thickening, or pneumothorax. Heart: Cardiac enlargement. Mediastinum/Tika: Unremarkable. Great vessels: Aorta is atherosclerotic and tortuous. Bones/soft tissues: Cardiac monitoring leads overlie the chest wall. RAD/Chest PA and Lateral IMPRESSION: Cardiac enlargement. Otherwise no active cardiopulmonary disease. Reading Location: [place] [id number]
--- NOTE | 2024-12-20 11:27 | EKG12_ITS ---
Test Reason : NEURO Blood Pressure : */* mmHG Vent. Rate : 61 BPM Atrial Rate : * BPM P-R Int : * ms QRS Dur : 170 ms QT Int : 562 ms P-R-T Axes : * -80 46 degrees QTcB Int : 565 ms Atrial fibrillation Left axis deviation Right bundle branch block Possible Lateral infarct , age undetermined Inferior infarct , age undetermined Abnormal ECG Confirmed by Lele Rabago ([id number]), order editor HIRA PANDEY ([id number]) on 12/21/2024 9:54:48 AM Referred By: Confirmed By: Lele Rabago
--- NOTE | 2024-12-20 11:29 | EX.ED.DYSGE1 ---
HPI History of Present Illness Chief Complaint: Neuro S/Sx Detail of Chief Complaint: We can wind down at home. Informant: patient Onset/Context/Timing Onset: Today Context: Gradual Onset Timing: Continuous Current Severity: Mild Maximum Severity: Mild Narrative Narrative: 89-year-old male history of COPD, A-fib on blood thinner Eliquis, CAD and CHF. States he lives at home with his . Today he was walking from the bathroom back to his chair. He said he did not he could make it. He got weak. Held on the chair and lowered himself down. Denies any head injury. Denies any injury. Said he went down slowly and was on carpeted floor. He denies any head injury or back pain. He denies other injuries. Denies recent illness. Denies any nausea, vomiting or diarrhea. Denies any dysuria. Denies any chest pain or shortness of breath. Denies any abdominal pain. Just that he felt weak did not feel like he could walk. He was brought in by squad. Prior similar symptoms: No Recent Illness/Hospitalization: Yes [facility] Medical History Loss of hearing Ambulates with cane Cyst of kidney, acquired Prostate disease Sleep apnea Smokeless tobacco use Former smoker Right leg pain Depression Congestive heart failure (CHF) Atrial fibrillation with normal ventricular rate Hypoxia Cellulitis of leg without foot, left UTI (urinary tract infection) Chest pain Atrial fibrillation Anemia High cholesterol Shortness of breath on exertion History of echocardiogram History of stress test Olecranon bursitis, right elbow Strain of tendon of right rotator cuff Insect bite of hand with infection Wears glasses Wears hearing aid Wears partial dentures Rash Arthritis Chewing tobacco use Non-smoker History of edema Cardiology follow-up encounter Syncope and collapse Persistent atrial fibrillation Epistaxis Chronic diastolic (congestive) heart failure 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 Hyperlipidemia Essential (primary) hypertension Obstructive sleep apnea Hypersomnia Hypoxia Renal cyst Diverticulitis Leg swelling Hiatal hernia COPD (chronic obstructive pulmonary disease) Home Medications ?Medication ?Instructions ?Recorded ?Last Taken ?Type cholecalciferol (vitamin D3) 25 25 mcg PO DAILY SUPPLEMENT 06/27/20 12/19/24 History mcg (1,000 unit) capsule finasteride 5 mg tablet 5 mg PO DAILY PROSTATE 06/03/22 12/19/24 History nitroglycerin 0.4 mg sublingual 0.4 mg sublingual Q5-15M PRN CHEST 10/31/22 Unknown Rx tablet PAIN #25 tabs aspirin 81 mg tablet,delayed 81 mg PO DAILY HEART HEALTH 09/23/23 12/07/24 History release (Adult Aspirin Regimen) Held on 12/20/24. Instructions: MD Ordered vit C 250 mg-vit E 90 mg-zinc 40 1 tab PO BID supplement 06/14/24 12/19/24 History mg-copper 1 [id number] capsule (PreserVision AREDS-2) metoprolol succinate 25 mg 25 mg PO DAILY BLOOD PRESSURE #90 08/26/24 12/19/24 Rx tablet,extended release 24 hr tabs spironolactone 25 mg tablet 25 mg PO DAILY BLOOD PRESSURE #90 08/26/24 12/19/24 Rx tabs albuterol sulfate 2.5 mg/3 mL 2.5 mg (3 mL) inhalation Q4H PRN 09/06/24 12/19/24 Rx (0.083 %) solution for nebulization shortness of breath or wheezing #75 mL apixaban 5 mg tablet (Eliquis) 5 mg PO BID BLOOD THINNER #60 tabs 10/21/24 12/07/24 Rx Held on 12/20/24. Instructions: MD Ordered atorvastatin 20 mg tablet (Lipitor) 20 mg PO DAILY CHOLESTEROL #90 10/21/24 12/19/24 Rx tabs polyethylene glycol 3350 17 gram 17 g PO DAILY 11/10/24 11/23/24 History oral powder packet (Miralax) furosemide 40 mg tablet (Lasix) 40 mg PO BID #180 tabs 12/02/24 12/19/24 Rx fluticasone 100 mcg-salmeterol 50 1 ea inhalation BID 12/17/24 12/19/24 History mcg/dose blistr powdr for inhalation methenamine hippurate 1 gram tablet 1 g PO QDAY 12/17/24 12/19/24 History ascorbic acid (vitamin C) 1,000 mg 1 g PO DAILY 12/20/24 12/19/24 History capsule Allergy/AdvReac Type Severity Reaction Status Date / Time peanut Allergy Itching Verified 12/17/24 14:51 levofloxacin (From Levaquin) AdvReac Rash Verified 12/17/24 14:51 Family History Brother Colon cancer Mother Hypertension Father Hypertension Other No pertinent family history Surgical History History of colonoscopy History of cardiac catheterization History of coronary artery stent placement (08/17/20) History of colonoscopy with polypectomy History of transurethral resection of prostate History of orchiectomy History of cataract surgery Social History household members: spouse Smoking Status: Former smoker alcohol intake: never substance use type: does not use caffeine: Yes Type: coffee Number of servings: 2 ROS ROS ED ROS Narrative Denies recent illness. Had generalized weakness today which is since resolved. Constitutional Constitutional ED: Denies chills or fever(s) Eyes Eyes: Denies blurry vision ENT ENT ED: Denies ear pain Cardiovascular Cardiovascular: Denies chest pain Respiratory/Chest Respiratory/Chest: Denies cough or dyspnea Gastrointestinal Gastrointestinal: Denies abdominal pain Genitourinary Genitourinary ED: Denies dysuria or hematuria Musculoskeletal Musculoskeletal: Denies arthralgias Integumentary Denies abscess Neurologic Neurologic: Denies headache(s) Psychiatric Psychiatric: Denies anxiety Endocrine Endocrinology: Denies cold intolerance Hematologic/Lymphatic Hematologic/Lymphatic: Reports none Allergic/Immunologic Allergic/Immunologic ED: Denies mouth swelling, tongue swelling or urticaria EXAM Physical Exam Narrative Exam Narrative: A 9-year-old male initially evaluated on entrance in the emergency department with the squad and then when he was moved to room 17. Vital signs are stable and afebrile. Pulse ox is 96% on room air. No hypoxia. No acute distress. No family is present currently. He has no complaints. H EENT exam pupils round reactive light. No facial droop. Normal speech. No signs of trauma to his face or head. Neck and spine nontender. Back and spine nontender. Lungs clear to auscultation bilaterally. Heart rate about 75 no murmur. Chest wall and ribs nontender. Abdomen soft nontender. Pelvic girdle intact. Upper extremities nontender normal graphite pan drier tender strength bilaterally. Hips knees ankles nontender. Normal dorsi plantarflexion. He can lift either leg off the bed. Neurologically he is awake and alert. Answering questions following commands. mildly slurred speech. Mild left facial droop. No focal motor weakness. Const Vital Signs: 12/20/24 11:00 12/20/24 11:03 12/20/24 11:28 Temperature 98.2 F 98.2 F Temperature Source Oral Oral Pulse Rate 59 L 74 Respiratory Rate 23 H 16 Blood Pressure 129/61 H 106/71 Blood Pressure Mean 83 82 Pulse Ox 100 96 Oxygen Delivery Method Room Air Room Air 12/20/24 12:00 12/20/24 13:00 12/20/24 14:00 Temperature Temperature Source Pulse Rate 56 L 61 61 Respiratory Rate 23 H 19 H 18 Blood Pressure 119/104 H 122/78 H 125/90 H Blood Pressure Mean 109 92 101 Pulse Ox 100 100 100 Oxygen Delivery Method Room Air 12/20/24 14:33 Temperature 98.6 F Temperature Source Pulse Rate 68 Respiratory Rate 23 H Blood Pressure 136/91 H Blood Pressure Mean 106 Pulse Ox 97 Oxygen Delivery Method Positive well nourished and well developed; Negative for cachectic, contractures or unkempt General Appearance ED: well developed and NAD; Negative for unkempt, cachectic, contractures, cyanotic, diaphoretic or pallor Nutritional Appearance: Negative for cachectic HEENT Reports moist mucous membranes HEENT Narrative: Mild left facial droop qand slurred speech. Negative for trauma or tenderness Eyes PERRL and EOMs intact bilaterally Neck no lymphadenopathy, supple and no JVD General: Negative for tenderness Chest Wall inspection of chest normal and palpation of chest normal Resp normal respiratory effort and clear to auscultation bilaterally Auscultation: Negative for rales, rhonchi or wheezes Cardio S1 normal heart sound, S2 normal heart sound and no murmurs; Negative for regular rate or regular rhythm Rhythm: abnormal rhythm other (A-fib rate about 75.) GI normal to inspection, nondistended, normoactive bowel sounds, non-tender, non-distended and no masses Auscultation: normoactive bowel sounds Palpation: soft; Negative for tender or guarding Back/Spine no CVA tenderness General Back: Negative for CVA tenderness Cervical Spine: Negative for cervical spine tenderness Thoracic Spine / Upper Back: Negative for thoracic spinal tenderness Lumbar Spine / Lower Back: Negative for lumbar spinal tenderness Extremity normal to inspection General Extremety ED: Negative for edema or tenderness General Extremity: Negative for edema Neuro No oriented x3 and No CN's II-XII intact bilaterally Neuro Narrative: Patient knew he was in the emergency department. He knows who he is. He knew the year. He knew the hospital. Mild left facial droop. Mildly slurred speech. Sensorium / Orientation: alert; Negative for lethargic or stuporous Motor Exam: strength 5/5 throughout; Negative for general weakness or strength abnormal Psych mental status grossly normal Appearance: Negative for unkempt Attitude: No agitated Mood & Affect: Negative for depressed, anxious or tearful Skin no rashes or lesions noted, no wounds and skin turgor normal General Skin Exam: Negative for jaundice or pallor Lesions: No lesion noted Rashes: No rashes noted Trauma: Negative for abrasion Wounds: Negative for wounds noted MDM MDM MDM Narrative Medical decision making narrative: 89-year-old male had generalized weakness and lowered himself to the ground at home. His exam benign. He does have mildly slurred speech and left facial droop consistent with possible stroke. He is on Eliquis and is not a thrombolytic candidate either way. He had generalized weakness and be worked up for that. Repeat exam patient is doing well at 2:40 PM. His and I believe his daughter currently present in the room they explained to me much better than the patient Code R on his initial arrival what has been going on. saw him last night at 9 PM he was doing fine. When she woke up this morning she found him down by his lift chair around 9 AM. At that time he had slurred speech. Now they believe he might have a slight left facial droop. He is chronically on Eliquis but he been off of that about 12 days or so due to an upcoming prostate surgery. Clinically it seems like the patient's probably had a stroke sometime between last night and this morning. It was a wake-up stroke and he was not a candidate for thrombolytics. Patient is unable to ambulate at this time. He will be admitted to hospitalist. History & Record Review Discussion w/independent historian: Patient Additional record(s) reviewed:: Prior outpatient record, Prior ED visit and Prior labs Lab Data Attestation: I reviewed the patient's lab results. Lab results narrative: CBC shows a white count 7. H&H 13 and 40. Platelets 178. Electrolytes show sodium 135. Gap 13. BUN 29 creatinine 1.23. Glucose 117. UA normal. No nitrates. No white or red cells. No bacteria. Chest x-ray chronic changes cardiomegaly. CT brain no acute process. Chronic changes. Labs: Laboratory Results - last 24 hr 12/20/24 12/20/24 11:15 12:11 WBC 7.5 RBC 4.41 L Hgb 13.5 Hct 40.2 MCV 91.2 MCH 30.6 MCHC 33.6 RDW Std Deviation 43.7 RDW Coeff of Armani 13.1 Plt Count 178 MPV 10.5 Immature Gran % (Auto) 0.300 Neut % (Auto) 79.9 H Lymph % (Auto) 10.1 L [place] % (Auto) 7.8 Eos % (Auto) 1.1 Baso % (Auto) 0.8 Absolute Neuts (auto) 6.0 Absolute Lymphs (auto) 0.76 L Nucleated RBC % 0 Sodium 135 Potassium 4.0 Chloride 100 Carbon Dioxide 22.3 Anion Gap 13 BUN 29 H Creatinine 1.23 H Estim Creat Clear Calc 55.30 Est GFR (MDRD) Non-Af 57 L BUN/Creatinine Ratio 23.7 H Glucose 117 H Calcium 9.8 Urine Color Yellow Urine Clarity Clear Urine pH 6.5 Ur Specific [place] 1.015 Urine Protein 15 H Urine Glucose (UA) Normal Urine Ketones Negative Urine Occult Blood Negative Urine Nitrite Negative Urine Bilirubin Negative Urine Urobilinogen Normal Ur Leukocyte Esterase Negative Urine RBC 0 SEEN Urine WBC 0 SEEN Ur Squamous Epith Cells 0 SEEN Urine Bacteria 0 SEEN Urine Mucus 0 SEEN Radiography Chest X-Ray - ED: 2 View, Read by ED Physician, Read by Radiologist, Lungs, Mediastinum, Bony Structures, No Acute Disease and Cardiomegaly Diagnostic Testing: Clinical Impression(s) from Imaging Studies Chest X-Ray 12/20/24 11:27 IMPRESSION: Cardiac enlargement. Otherwise no active cardiopulmonary disease. Reading Location: [facility] 12/20/24 11:38 IMPRESSION: 1. Generalized brain atrophy. 2. Small vessel ischemic/degenerative changes. 3. No acute intracranial hemorrhage, midline shift or mass effect. If symptoms persist, further evaluation with MRI is recommended. 4. No significant change from the prior exam. Reading Location: [facility] Chest x-ray, 2 views, AP and lateral, shows cardiomegaly otherwise no acute process. Chronic changes. No pneumonia. No infiltrates. No effusions. Interpreted both by myself and the radiologist. Rhythm Strip Rhythm Strip: A-fib Rate: 61 Ectopy: None EKG Initial EKG: Attestation: I personally reviewed and interpreted this EKG as follows: Interpretation: Atrial Fibrillation Comments: Atrial fibrillation rate of 61. Right bundle branch block. No acute signs of IL or ischemia. Discharge Plan Dx/Rx/DC Orders Clinical Impression: Stroke, Chronic anticoagulation, Slurred speech, Facial droop, Falls, History of atrial fibrillation Disposition Disposition: Acute Care Hospital [facility]
[2024-12-20 11:36] LABS: Absolute Lymphocyte Count 0.76 X10^3/uL (0.83-4.51); Basophil# 0.06 X10^3/uL; Basophil% 0.8 % (0-1); Eosinophil# 0.08 X10^3/uL; Eosinophils% 1.1 % (0-5); Hematocrit 40.2 % (40-54); Hemoglobin 13.5 g/dL (13.0-16.5); Lymphocyte # 0.76 X10^3/ul (0.83-4.51); Lymphocyte % 10.1 % (19-41); Mean Corp Hgb Conc 33.6 g/dL (32-36); Mean Corpuscular Hgb 30.6 pg (27.0-32.0); Mean Corpuscular Volume 91.2 fL (80-94); Mean Platelet Vol. 10.5 fl (6.2-12.0); Monocyte# 0.59 X10^3/uL; Monocyte% 7.8 % (0-10); NRBC Flagged by Analyzer 0 % (0-5); Neutrophil # 6.02 X10^3/uL (2.7-7.7); Neutrophil % 79.9 % (47-70); Platelet Count 178 K/mm3 (150-450); RBC Distribution Width CV 13.1 % (11.6-14.6); RBC Distribution Width SD 43.7 fl (35.1-43.9); Red Blood Count 4.41 M/mm3 (4.6-6.2); White Blood Count 7.5 K/mm3 (4.4-11.0)
--- NOTE | 2024-12-20 11:38 | CT_ITS ---
EXAM: CT Head Without Intravenous Contrast CLINICAL INDICATION: GENERALIZED WEAKNESS TECHNIQUE: Axial computed tomography images of the head/brain without intravenous contrast. This CT exam was performed using one or more of the following dose reduction techniques: automated exposure control, adjustment of the mA and/or kV according to patient size, and/or use of iterative reconstruction technique. COMPARISON: CT Head dated 07/30/2024 FINDINGS: BRAIN AND EXTRA-AXIAL SPACES: The cerebral and cerebellar sulci are prominent consistent with brain atrophy. Areas of decreased attenuation in the deep cerebral white matter are consistent with small vessel ischemic/degenerative changes. No acute intracranial hemorrhage, midline shift or mass effect. If symptoms persist, further evaluation with MRI is recommended. BONES/JOINTS: Unremarkable. No acute fracture. SOFT TISSUES: Unremarkable. SINUSES: Unremarkable as visualized. No acute sinusitis. MASTOID AIR CELLS: Unremarkable as visualized. No mastoid effusion. CT/Brain/Head without Contrast IMPRESSION: 1. Generalized brain atrophy. 2. Small vessel ischemic/degenerative changes. 3. No acute intracranial hemorrhage, midline shift or mass effect. If symptoms persist, further evaluation with MRI is recommended. 4. No significant change from the prior exam. Reading [facility]
[2024-12-20 11:59] LABS: Anion Gap 13 (5-15); BUN 29 mg/dL (4-19); BUN/Creat Ratio 23.7 RATIO (10-20); Calcium,Total 9.8 mg/dL (7.6-11.0); Carbon Dioxide 22.3 mmol/L (21.0-32.0); Chloride 100 mmol/L (98-108); Creatinine, Serum 1.23 mg/dL (0.70-1.20); EST Glomerular Filtration Rate 57 (>60); Glucose 117 mg/dL (70-99); Sodium Level 135 mmol/L (133-145)
[2024-12-20 12:21] LABS: Bacteria 0 SEEN /hpf (None Seen); Mucous, Urine 0 SEEN /hpf (<or=2+); Red Blood Cells-Urine 0 SEEN /hpf (0-5); Squamous Epithelial Cells - UA 0 SEEN /hpf (0-5); White Blood Cells 0 SEEN /hpf (0-5)
[2024-12-20 12:37] LABS: Color, Urine Yellow (Yellow); Glucose, Dipstick Normal (Normal); Ketone-Dipstick Negative (Negative); Leukocyte Esterase-Dipstick Negative /ul (Negative); Nitrite-Dipstick Negative (Negative); Occult Blood-Urine Negative /ul (Negative); Protein-Dipstick 15 mg/dl (Negative); Specific Gravity, Urine 1.015 (1.002-1.030); Urine Bilirubin Dipstick Negative (Negative); Urine Clarity Clear (Clear); Urine Urobilinogen Normal (Normal); Urine pH 6.5 (5.0 - 8.0)
--- NOTE | 2024-12-20 15:04 | PCM.HP.STD ---
HPI - General General Date of Admission: 12/20/24 Date of Service: 12/20/24 Chief Complaint: Falls/Slurred Speech/Facial Droop HPI Narrative SCARLETT STEVENS, is a 89 M who presented to the emergency department at [facility] on 12/20/2024 with a chief complaint of 2 falls today which is atypical for him, slurred speech, and facial droop. Patient's last known well was last night before he went to bed. Patient does have a history of paroxysmal atrial fibrillation and has been anticoagulated with Eliquis until 12/07/2024 at which time his Eliquis and aspirin have been on hold for upcoming urological procedure. Patient was also having issues with bloody noses on Eliquis. He had also been on his Eliquis earlier in the month when he was preparing for surgery however surgery was canceled due to abnormal lung sounds. Given this, his compliance with his anticoagulation and antiplatelet therapy has been altered and inconsistent as of lately. NIH at the time of admission was 2. Vital signs on presentation showed a temperature of 98.2, heart rate 59, respiratory 23, blood pressure 129/61 and pulse ox was 100% on room air. CBC was unremarkable. Chemistry panel showed elevated BUN/creatinine at 29 and 1.23 respectively which is close to his baseline. Serum glucose was 117. Urine was not suggestive of infection. EKG showed A-fib with a chronic right bundle branch block and a prolonged QT interval. No ST-T wave changes present that would be concerning for acute ischemia. CT of the brain showed generalized brain atrophy with small vessel ischemic and degenerative changes with no acute intracranial hemorrhage midline shift or mass effect and no significant changes from previous exam. I added on a CT of the head and neck to rule out LVO. This showed approximately 50% narrowing of the right ICA at its origin with no critical stenosis aneurysms or AV malformations. He did have an enhancing lesion at the vertex of the calvarium on the left that was suggestive of a small meningioma. Given the acuteness of the onset and history there was significant concern of acute stroke and admission was requested. [facility] Medical History Anxiety Osteoporosis Irregular heart beat Coronary artery disease Hypertension Loss of hearing Ambulates with cane Cyst of kidney, acquired Prostate disease Sleep apnea Smokeless tobacco use Former smoker Right leg pain Depression Congestive heart failure (CHF) Atrial fibrillation with normal ventricular rate Hypoxia Cellulitis of leg without foot, left UTI (urinary tract infection) Chest pain Atrial fibrillation Anemia High cholesterol Shortness of breath on exertion History of echocardiogram History of stress test Olecranon bursitis, right elbow Strain of tendon of right rotator cuff Insect bite of hand with infection Wears glasses Wears hearing aid Wears partial dentures Rash Arthritis Chewing tobacco use Non-smoker History of edema Cardiology follow-up encounter Syncope and collapse Persistent atrial fibrillation Epistaxis Chronic diastolic (congestive) heart failure Atherosclerotic heart disease of cahto coronary artery without angina pectoris BPH with urinary obstruction Hyperlipidemia Essential (primary) hypertension Obstructive sleep apnea Hypersomnia Hypoxia Renal cyst Diverticulitis Leg swelling Hiatal hernia COPD (chronic obstructive pulmonary disease) Home Medications ?Medication ?Instructions ?Recorded ?Last Taken ?Type cholecalciferol (vitamin D3) 25 25 mcg PO DAILY SUPPLEMENT 06/27/20 12/19/24 History mcg (1,000 unit) capsule finasteride 5 mg tablet 5 mg PO DAILY PROSTATE 06/03/22 12/19/24 History nitroglycerin 0.4 mg sublingual 0.4 mg sublingual Q5-15M PRN CHEST 10/31/22 Unknown Rx tablet PAIN #25 tabs aspirin 81 mg tablet,delayed 81 mg PO DAILY HEART HEALTH 09/23/23 12/07/24 History release (Adult Aspirin Regimen) Held on 12/20/24. Instructions: Ordered vit C 250 mg-vit E 90 mg-zinc 40 1 tab PO BID supplement 06/14/24 12/19/24 History mg-copper 1 [id number] capsule (PreserVision AREDS-2) metoprolol succinate 25 mg 25 mg PO DAILY BLOOD PRESSURE #90 08/26/24 12/19/24 Rx tablet,extended release 24 hr tabs spironolactone 25 mg tablet 25 mg PO DAILY BLOOD PRESSURE #90 08/26/24 12/19/24 Rx tabs albuterol sulfate 2.5 mg/3 mL 2.5 mg (3 mL) inhalation Q4H PRN 09/06/24 12/19/24 Rx (0.083 %) solution for nebulization shortness of breath or wheezing #75 mL apixaban 5 mg tablet (Eliquis) 5 mg PO BID BLOOD THINNER #60 tabs 10/21/24 12/07/24 Rx Held on 12/20/24. Instructions: MD Ordered atorvastatin 20 mg tablet (Lipitor) 20 mg PO DAILY CHOLESTEROL #90 10/21/24 12/19/24 Rx tabs polyethylene glycol 3350 17 gram 17 g PO DAILY 11/10/24 11/23/24 History oral powder packet (Miralax) furosemide 40 mg tablet (Lasix) 40 mg PO BID #180 tabs 12/02/24 12/19/24 Rx fluticasone 100 mcg-salmeterol 50 1 ea inhalation BID 12/17/24 12/19/24 History mcg/dose blistr powdr for inhalation methenamine hippurate 1 gram tablet 1 g PO QDAY 12/17/24 12/19/24 History ascorbic acid (vitamin C) 1,000 mg 1 g PO DAILY 12/20/24 12/19/24 History capsule Allergy/AdvReac Type Severity Reaction Status Date / Time peanut Allergy Itching Verified 12/20/24 15:40 levofloxacin (From Levaquin) AdvReac Rash Verified 12/20/24 15:40 Family History Brother Colon cancer Mother Hypertension Father Hypertension Other No pertinent family history Surgical History History of colonoscopy History of cardiac catheterization History of coronary artery stent placement (08/17/20) History of colonoscopy with polypectomy History of transurethral resection of prostate History of orchiectomy History of cataract surgery Social History household members: spouse Smoking Status: Former smoker alcohol intake: never substance use type: does not use caffeine: Yes Type: coffee Number of servings: 2 ROS Constitutional Constitutional: Reports weakness; Denies anorexia, change in weight, chills, fatigue, fever(s), malaise, night sweats or other Eyes Eyes: Denies blurry vision, change in eye color, change in vision, discharge from eye(s), double vision, erythema, eye pain, loss of vision or other ENT HEENT: Denies abnormal hearing, dysphagia, ear pain, epistaxis, headache(s), hearing loss, nasal congestion, nasal discharge, post nasal drip, sinus pressure, sore throat or other Cardiovascular Cardiovascular: Denies chest pain, claudication, dyspnea on exertion, edema, lightheadedness, orthopnea, palpitations, paroxysmal nocturnal dyspnea, rapid heart rate, syncope or other Respiratory/Chest Respiratory/Chest: Denies cough, dyspnea, excessive phlegm production, hemoptysis, productive cough, shortness of breath at rest, shortness of breath with exertion, wheezing or other Gastrointestinal Gastrointestinal: Denies abdominal pain, coffee ground emesis, constipation, diarrhea, dyspepsia, hematemesis, hematochezia, loose stools, melena, nausea, vomiting or other Genitourinary Genitourinary: Denies burning urination, difficulty urinating, dysuria, hematuria, nocturia, urinary frequency, urinary hesitancy, urinary incontinence, urinary urgency or other Musculoskeletal Musculoskeletal: Denies arthralgias, back pain, joint pain, joint stiffness, joint swelling, myalgias, neck pain or other Neurologic Neurologic: Reports abnormal speech, focal weakness and other Details: Falls Psychiatric Psychiatric: Denies anxiety, depression, homicidal ideation, suicidal ideation or other Endocrine Endocrinology: Denies change in body appearance, cold intolerance, excessive sweating, heat intolerance, polydipsia, polyuria or other Hematologic/Lymphatic Hematologic/Lymphatic: Denies anemia, easy bleeding, easy bruising, lymphadenopathy or other Allergic/Immunologic Allergic/Immunologic: Denies rhinitis, hives, eczemia, asthma or other Vital Signs Vital Signs Vital Signs: 12/20/24 11:00 12/20/24 11:03 12/20/24 11:28 Temperature 98.2 F 98.2 F Temperature Source Oral Oral Pulse Rate 59 L 74 Respiratory Rate 23 H 16 Blood Pressure 129/61 H 106/71 Blood Pressure Mean 83 82 Pulse Ox 100 96 Oxygen Delivery Method Room Air Room Air 12/20/24 12:00 12/20/24 13:00 12/20/24 14:00 Temperature Temperature Source Pulse Rate 56 L 61 61 Respiratory Rate 23 H 19 H 18 Blood Pressure 119/104 H 122/78 H 125/90 H Blood Pressure Mean 109 92 101 Pulse Ox 100 100 100 Oxygen Delivery Method Room Air 12/20/24 14:33 Temperature 98.6 F Temperature Source Pulse Rate 68 Respiratory Rate 23 H Blood Pressure 136/91 H Blood Pressure Mean 106 Pulse Ox 97 Oxygen Delivery Method Weight Weight: 121.5 kg Body Mass Index (BMI) 38.4 Physical Exam Const alert, oriented x3, no apparent distress and well nourished; Negative for average body habitus or healthy appearing Constitutional Narrative: Obese, sleepy, elderly, white male, lying in bed, does awaken and interact appropriately, family at bedside, patient does not appear toxic but per family is not at his baseline General Appearance: cooperative HEENT normocephalic, head/scalp atraumatic and moist oral mucous membranes; Negative for hearing grossly normal bilaterally or dentition normal HEENT Narrative: Mild to moderate hearing loss, dentition is poor, Mallampati is 3, no thrush Eyes EOMs intact bilaterally and conjunctivae normal Eyes Narrative: No scleral icterus Neck no lymphadenopathy, supple and no carotid bruits Neck Narrative: Trachea midline, no thyroid enlargement Resp normal respiratory effort, no retractions, no use of accessory muscles and clear to auscultation bilaterally Auscultation: Negative for rales, rhonchi or wheezes Cardio regular rate, S1 normal heart sound, S2 normal heart sound, no murmurs, no rub, no gallops and no clicks Cardio Narrative: Irregularly irregular rhythm with regular rate GI normal to inspection, nondistended, normoactive bowel sounds, soft to palpation and non-tender Extremity no clubbing, cyanosis or edema Extremity Narrative: Pedal and radial pulses are 2+ bilaterally Neuro oriented x3 and moves all extremities Neuro Narrative: Slight left facial droop, reflexes are 2+ bilateral upper and lower extremities Speech: speech normal Psych Psych Narrative: Affect is flat slightly and patient seems slightly somnolent but awakens, eye contact is good and patient does interact appropriately Results Lab / Micro Data 12/20/24 11:15 12/20/24 11:15 Labs: Laboratory Results - last 24 hr 12/20/24 11:15: WBC 7.5, RBC 4.41 L, Hgb 13.5, Hct 40.2, MCV 91.2, MCH 30.6, MCHC 33.6, RDW Std Deviation 43.7, RDW Coeff of Armani 13.1, Plt Count 178, MPV 10.5, Immature Gran % (Auto) 0.300, Neut % (Auto) 79.9 H, Lymph % (Auto) 10.1 L, [place] % (Auto) 7.8, Eos % (Auto) 1.1, Baso % (Auto) 0.8, Absolute Neuts (auto) 6.0, Absolute Lymphs (auto) 0.76 L, Nucleated RBC % 0, Sodium 135, Potassium 4.0, Chloride 100, Carbon Dioxide 22.3, Anion Gap 13, BUN 29 H, Creatinine 1.23 H, Estim Creat Clear Calc 55.30, Est GFR (MDRD) Non-Af 57 L, BUN/Creatinine Ratio 23.7 H, Glucose 117 H, Calcium 9.8 12/20/24 12:11: Urine Color Yellow, Urine Clarity Clear, Urine pH 6.5, Ur Specific [place] 1.015, Urine Protein 15 H, Urine Glucose (UA) Normal, Urine Ketones Negative, Urine Occult Blood Negative, Urine Nitrite Negative, Urine Bilirubin Negative, Urine Urobilinogen Normal, Ur Leukocyte Esterase Negative, Urine RBC 0 SEEN, Urine WBC 0 SEEN, Ur Squamous Epith Cells 0 SEEN, Urine Bacteria 0 SEEN, Urine Mucus 0 SEEN Rhythm Strip Rhythm Strip: A-fib Rate: 61 Ectopy: None Imaging Radiology Impression Chest X-Ray 12/20/24 11:27 IMPRESSION: Cardiac enlargement. Otherwise no active cardiopulmonary disease. Reading Location: [place] [id number] 12/20/24 11:38 IMPRESSION: 1. Generalized brain atrophy. 2. Small vessel ischemic/degenerative changes. 3. No acute intracranial hemorrhage, midline shift or mass effect. If symptoms persist, further evaluation with MRI is recommended. 4. No significant change from the prior exam. Reading Location: [facility] Assessment & Plan Assessment/Plan (1) Falls: (2) Facial droop: (3) Slurred speech: (4) History of atrial fibrillation: PLAN: Plan Falls/right facial droop/slurred speech - Highly concerning for acute ischemic stroke - Patient has been off of Eliquis and aspirin since 12/07/2024 for upcoming urological procedure -Will continue to hold for now - CT of the brain was unremarkable for acute findings - CTA of the head and neck showed - Admission to PCU stroke order set - Check MRI - Check echocardiogram - Check lipid panel - Check hemoglobin A1c - NIH per stroke order set - PT/OT/speech therapy consultation - Will continue home metoprolol with history of A-fib but hold other antihypertensives and allow for permissive hypertension with concern for ischemic stroke - Neurology consultation RCA Stenosis - 50% RCA stenosis on CTA - continue statin L Meningioma -outpt f/u -seems to be a asymptomatic finding PAF - Patient has been off anticoagulation for upcoming urological procedure -Continue to hold Eliquis for now - Continue home metoprolol CAD/essential HTN/HPL - Aspirin has been on hold for upcoming urological procedure--> will start 81 mg daily - Continue home atorvastatin - Continue home Lasix - Continue home metoprolol - Hold home Aldactone CKD stage IIIa - Baseline serum creatinine appears to run between 1.1 and 1.3 - Currently 1.23 - Continue to monitor closely with contrast being given for CTA of the head and neck - Avoid nephrotoxins as able COPD - Continue as needed nebulizers - Continue home inhalers - No wheezing on exam Chronic diastolic heart failure - Currently not in exacerbation - Continue home Lasix - Hold Aldactone for now and restart as I am allowing for some permissive hypertension BPH with obstruction - Continue finasteride - Patient is to have upcoming TURP with urology however this will likely need to be held due to need for anticoagulation - Await neurology recommendations CHUCHO - Patient has been followed with pulmonary medicine - AHI was 5.5 - patient is currently not on therapy as patient has a mild and asymptomatic disease Osteoarthritis - Will schedule Tylenol 1 g 3 times daily - Avoid NSAIDs with CKD - Low-dose as needed Ultram available Obesity -BMI is 38.4 -Recommend weight loss -Complicates treatment, prognosis, outcomes History of tobacco abuse - Remote - Encouraged ongoing cessation - patient does have COPD diagnosis at baseline DVT prophylaxis -Home apixaban is on hold for upcoming urological procedures - Chemoprophylaxis with Lovenox 40 daily CODE STATUS -Previously patient has been DNR CCA with no intubation requested and this was verified at the time of admission Charges/Coding Visit Charges Inpatient E&M: 00747 Init Hosp L2
--- NOTE | 2024-12-20 15:07 | CT_ITS ---
PROCEDURE: STROKE CTA HEAD AND NECK W/CON 12/20/2024 REASON FOR EXAM: STROKE TECHNIQUE: CTA imaging of the head and neck from the aortic arch to the skull vertex with out contrast and with intravenous contrast. Contiguous axial scans of 1.25 mm slice thicknesses with sagittal and coronal reconstruction images. Color 3-dimensional imaging was also performed. One or more dose reduction techniques were utilized (e.g., automated exposure control, adjustment of mA and/or kv according to patient size, use of iterative reconstruction technique). CONTRAST: Isovue 370 VOLUME: 100 mL RADIATION DOSE SUMMARY: DLP: 713.96 mGycm COMPARISON: CTA head and neck stroke protocol dated 07/30/2024 FINDINGS: Aortic Arch: Unremarkable. Brachiocephalic and Subclavians: Unremarkable. RIGHT Carotid: Right CCA: No hemodynamically significant stenoses. Right ICA: No hemodynamically significant stenoses. Approximately 50% narrowing at the origin. No ulcerations or other abnormalities. Right ECA: Unremarkable. LEFT Carotid: Left CCA: No hemodynamically significant stenoses. Left ICA: No hemodynamically significant stenoses. Left ECA: Unremarkable. Vertebrals: Codominant. RIGHT Vertebral: Unremarkable. LEFT Vertebral: Unremarkable. Anatomy: Aneurysm or avm: No aneurysms or arteriovenous malformations. Anterior cerebral arteries: Unremarkable. Middle cerebral arteries: Unremarkable. Basilar artery: Unremarkable. Posterior cerebral arteries: Unremarkable. Other major branches of the posterior circulation: Unremarkable. Major venous structures: No venous abnormalities. Other findings: Neck: No lymphadenopathy or other abnormalities. Lungs: Lung apices as visualized unremarkable. Bones: Multilevel spondylosis. Degenerative disc disease, most severe at C5-6. Brain: Cerebrum:A 1.9 cm enhancing mass at the vertex of the left calvarium adjacent to the inner table. No significant mass effect or midline shift or surrounding edema. Ventricles and cisterns: Appropriate size for patient's age. Extra-axial fluid: Unremarkable. Posterior fossa: Unremarkable cerebellum. No abnormalities involving the brainstem. Paranasal sinuses: Mucoperiosteal thickening in the bilateral maxillary sinuses Mastoid air cells: unremarkable. Calvarium: Unremarkable. Soft tissues: Artifact from dental enhancements.. CT/STROKE CTA Head AND Neck W/Con IMPRESSION: 1. Approximately 50% narrowing of the right internal carotid artery at its benji gin. 2. No critical stenoses are noted in the carotid arteries. 3. No intracranial aneurysms or arteriovenous malformations. 4. No signs of acute intracranial hemorrhage or ischemic infarction. 5. Enhancing lesion at the vertex of the calvarium on the left most concerning for small meningioma. 6. Mild bilateral maxillary sinus inflammation. 7. Other nonacute findings detailed above. Reading Location: [place] [id number]
--- NOTE | 2024-12-20 16:08 | CASEMGMT ---
Care Management Face to Face with patient for initial transition planning/care coordination assessment in the ED.? This physician underwriter introduced self and role at [facility]. Patient alert and oriented. Patient willing to participate in assessment and is able to answer all questions appropriately.? Care providers, pharmacy, and demographics verified. Admitting Diagnosis: Neuro s/sx Other diagnosis history: ?CHF, AFIB, Anemia, arthritis, hyperlipidemia, hypertension diverticulitis, COPD PCP: Chuck Specialists: ?Jose, [employer] Preferred Pharmacy:? [facility] Insurance: ?Medicare Prescription Benefit: ?Yes Living Will/HPOA: ?LW and HPOA completed and on file LNOK: Living Arrangements: ?Patient lives with in one story home.?? Patient had been independent with ADLs until today.? Does have limited mobility Transportation: ? and children drive patient when? needed DME: ?cane, walker, wheelchair, life chair, shower bench, grab bars, bed side commode HHC: ?currently using [facility], nursing coming every other week. SNF/Rehab: ?none Community Resources: none Behavioral Health History: Depression Patient goals: ?Discharge plans uncertain Disposition Plan: admission to acute; RN CM/SW to follow for discharge planning needs that may arise. Kailey Salvador, RETAIL SHIFT MANAGER, QA DEVELOPER
--- NOTE | 2024-12-20 16:59 | MRI_ITS ---
PROCEDURE: BRAIN WITHOUT CONTRAST 12/20/2024 REASON FOR EXAM: STROKE TECHNIQUE: Noncontrast brain MRI. Multiplanar and multisequence images were obtained. COMPARISON: 12/20/2024 CT and CTA. FINDINGS: Mild global parenchymal atrophy. Stable extra-axial lesion overlying the left frontal lobe approaching the vertex which measures 2 cm and most compatible with a meningioma. Mild chronic microvascular ischemia. Right frontal lobe small focus of restricted diffusion compatible with an acute infarction. No evidence of acute hemorrhage. Interval enlargement and new convexity of the pituitary gland suspicious for an underlying lesion. Further characterization with pituitary protocol MRI is recommended. MRI/Brain without Contrast IMPRESSION: Small right frontal lobe acute infarction. Stable probable meningioma. Interval enlargement and convexity of the pituitary gland suspicious for an und erlying lesion. Further characterization with nonemergent MRI pituitary is recommended. The ordering provider was instructed to call the radiologist by the navigator a nd because the callback number was not able to be reached. Reading Location: [place] [id number]
--- NOTE | 2024-12-20 16:59 | ECHOCS_ITS ---
Reason For Study Reason For Study: TIA/Stroke Procedure This was a 2D Doppler, Color Flow transthoracic echocardiogram. Contrast injection was performed. The study was technically difficult. Exam performed portable in patient room. Left Ventricle Severe concentric left ventricular hypertrophy. Normal LV size. Mild LV global systolic dysfunction. Estimated LVEF 45%. At least stage I diastolic dysfunction. Right Ventricle Normal right ventricle. Atria There is moderate biatrial dilatation. Mitral Valve Trivial mitral valve insufficiency. Tricuspid Valve Mild to moderate (1-2+) tricuspid valve insufficiency. Right ventricular systolic pressure estimated to be 43 mmHg. Aortic Valve Trisinus/trileaflet aortic valve. Pulmonic Valve The pulmonic valve is not well visualized. Trivial pulmonic valve insufficiency. Great Vessels Normal sized aortic root. Pericardium/Pleural No pericardial effusion. Medication Diluted definity 2ml given slow IV push to enhance endocardial definition. MMode/2D Measurements & Calculations LVIDd: 4.4 cm IVSd: 1.8 cm Ao root diam: 3.4 cm LVIDs: 3.5 cm LVPWd: 1.7 cm RVDd: 4.9 cm FS: 20.8 % LAV(MOD-bp): 64.2 ml LVAd ap4: 31.5 cm2 SV(MOD-sp4): 56.9 ml LAV(MOD-bp) Indexed: 28.1 ml/m2 LVLd ap4: 7.4 cm SI(MOD-sp4): 24.9 ml/m2 LAV(MOD-sp2): 73.5 ml EDV(MOD-sp4): 110.4 ml LAV(MOD-sp4): 55.8 ml EDV(sp4-el): 113.8 ml LVAs ap4: 20.4 cm2 LVLs ap4: 6.5 cm ESV(MOD-sp4): 53.5 ml ESV(sp4-el): 54.7 ml EF(MOD-sp4): 51.5 % EF(sp4-el): 51.9 % SV(sp4-el): 59.0 ml LA A4 area: 20.6 cm2 LA dimension(2D): 3.6 cm RA A4 area: 21.6 cm2 TAPSE: 1.6 cm Doppler Measurements & Calculations MV E max diego: 77.9 cm/sec Lat Peak E' Diego: 8.0 cm/sec Med Peak E' Diego: 5.3 cm/sec E/E' lat: 9.8 E/E' med: 14.7 Ao V2 max: 102.9 cm/sec LV V1 max: 60.7 cm/sec PA V2 max: 87.1 cm/sec Ao max P.3 mmHg LV V1 max P.5 mmHg Ao V2 mean: 78.4 cm/sec Ao mean P.6 mmHg Ao V2 VTI: 20.3 cm TR max diego: 309.7 cm/sec TR max P.4 mmHg ECHO/Echo Complete W/ Contrast Interpretation Summary Severe concentric left ventricular hypertrophy. Mild LV global systolic dysfunction. Estimated LVEF 45%. At least stage I diast olic dysfunction. There is moderate biatrial dilatation. Mild to moderate (1-2+) tricuspid valve insufficiency. Right ventricular systolic pressure estimated to be 43 mmHg. The study was technically difficult. Ordering Physician: Lucero Acevedo Referring Physician: Daphne Woods Performed By: Keisha Peralta RDCS, RVT
[2024-12-20] MEDS: Albuterol 2.5 MG/3 ML VIAL.NEB. INHALATION (20:27)
[2024-12-20] MEDS: Budesonide Respules 0.5 MG/2 ML AMPUL.NEB. INHALATION (20:28)
[2024-12-20] MEDS: Multivitamin (Healthy Eyes) Capsule 1 CAP PO (20:57)
[2024-12-20] MEDS: Methenamine Hippurate 1 GM Tablet PO (20:57)
[2024-12-20] MEDS: Furosemide 40 MG Tablet PO (20:57)
[2024-12-21] VITALS (13 sets, daily range): BP systolic 109–135; BP diastolic 55–99; PULSE 55–73; RESP 16–18; TEMP 36.1–36.8; O2SAT 95–100; BMI 35.5
--- NOTE | 2024-12-21 03:01 | NURSING ---
This RN completed the dysphagia screening at the bedside. Pt sipped and swallowed without concern and no coughing. I then proceeded to give past due and evening meds to the pt. It was then that my concern for dysphagia heightened. The pt started coughing after taking larger gulps of water to swallow meds. In order to best provide care for this pt, I completed the dysphagia screen again highlighting my concern. I desire to ensure that he does not receive anything by mouth until a speech evaluation has been completed.
[2024-12-21 06:10] LABS: Absolute Lymphocyte Count 0.92 X10^3/uL (0.83-4.51); Absolute Neutrophil Count 6.2 X10^3/uL (2.0-7.7); Basophil# 0.09 X10^3/uL; Basophil% 1.1 % (0-1); Eosinophil# 0.15 X10^3/uL; Eosinophils% 1.9 % (0-5); Hemoglobin 13.6 g/dL (13.0-16.5); Lymphocyte # 0.92 X10^3/ul (0.83-4.51); Lymphocyte % 11.4 % (19-41); Mean Corp Hgb Conc 34.9 g/dL (32-36); Mean Corpuscular Hgb 31.1 pg (27.0-32.0); Mean Corpuscular Volume 89.2 fL (80-94); Monocyte# 0.77 X10^3/uL; Monocyte% 9.5 % (0-10); NRBC Flagged by Analyzer 0 % (0-5); Neutrophil # 6.15 X10^3/uL (2.7-7.7); Neutrophil % 75.9 % (47-70); Platelet Count 175 K/mm3 (150-450); RBC Distribution Width CV 12.9 % (11.6-14.6); RBC Distribution Width SD 42.2 fl (35.1-43.9); Red Blood Count 4.37 M/mm3 (4.6-6.2); White Blood Count 8.1 K/mm3 (4.4-11.0)
[2024-12-21 06:32] LABS: ALB/GLOB Ratio 1.4 RATIO (0.9-2.4); AST(SGOT) 31 U/L (<=37); Alanine Aminotransfer ALT/SGPT 13 U/L (<=46); Albumin, Serum 4.1 g/dL (3.4-4.8); Alkaline Phosphatase 144 U/L (40-129); Anion Gap 13 (5-15); BUN 23 mg/dL (4-19); BUN/Creat Ratio 22.5 RATIO (10-20); Calcium,Total 9.5 mg/dL (7.6-11.0); Carbon Dioxide 19.1 mmol/L (21.0-32.0); Chloride 104 mmol/L (98-108); Cholesterol 105 mg/dL (<=200); Creatinine, Serum 1.03 mg/dL (0.70-1.20); EST Glomerular Filtration Rate 70 (>60); Estimated Creatinine Clearance 63.41 ml/min (50-250); Globulin 2.9 g/dL (2.2-4.2); Glucose 99 mg/dL (70-99); High Density Lipoprotein 55 mg/dL; Low Density Lipoprotein Calc. 40 mg/dL; Magnesium 2.1 mg/dL (1.5-2.2); Phosphorus 2.7 mg/dL (2.7-4.5); Potassium 4.2 mmol/L (3.3-5.1); Protein, Total 7.1 g/dL (5.9-8.4); Sodium Level 136 mmol/L (133-145); Total Bilirubin 1.43 mg/dL (0.00-1.30); Triglycerides 47 mg/dL; Very Low Density Lipoprotein 9 mg/dL (5-40)
[2024-12-21] MEDS: Budesonide Respules 0.5 MG/2 ML AMPUL.NEB. INHALATION ×2 (07:56→20:43)
[2024-12-21] MEDS: Albuterol 2.5 MG/3 ML VIAL.NEB. INHALATION ×3 (07:56→20:43)
[2024-12-21] MEDS: Enoxaparin 40 MG/0.4 ML Syringe SC (08:24)
--- NOTE | 2024-12-21 08:31 | PCM.PN.HOSP ---
Reason for Visit Reason for Visit: Diagnoses Repeated falls (12/20/24) Facial weakness (12/20/24) Slurred speech (12/20/24) Personal history of other diseases of the circulatory system (12/20/24) Subjective Subjective Feeling well. Objective Data Objective Data Vital Signs: Vital Signs Temp Pulse Resp BP Pulse Ox O2 Del Method 36.1 C L 64 18 133/60 H 98 Room Air 12/21/24 08:22 12/21/24 08:22 12/21/24 08:22 12/21/24 08:22 12/21/24 08:22 12/21/24 08:22 Oxygen Delivery Method Room Air Weight: 112.3 kg Body Mass Index (BMI) 35.5 Intake & Output: Intake and Output for Last 24 Hours 12/19/24 12/20/24 12/21/24 23:59 23:59 23:59 Output Total 800 / 800 Balance -800 / -800 Lab / Micro Data 12/21/24 05:38 12/21/24 05:38 Labs: Laboratory Results - last 24 hr 12/20/24 11:15: WBC 7.5, RBC 4.41 L, Hgb 13.5, Hct 40.2, MCV 91.2, MCH 30.6, MCHC 33.6, RDW Std Deviation 43.7, RDW Coeff of Armani 13.1, Plt Count 178, MPV 10.5, Immature Gran % (Auto) 0.300, Neut % (Auto) 79.9 H, Lymph % (Auto) 10.1 L, [place] % (Auto) 7.8, Eos % (Auto) 1.1, Baso % (Auto) 0.8, Absolute Neuts (auto) 6.0, Absolute Lymphs (auto) 0.76 L, Nucleated RBC % 0, Sodium 135, Potassium 4.0, Chloride 100, Carbon Dioxide 22.3, Anion Gap 13, BUN 29 H, Creatinine 1.23 H, Estim Creat Clear Calc 55.30, Est GFR (MDRD) Non-Af 57 L, BUN/Creatinine Ratio 23.7 H, Glucose 117 H, Hemoglobin A1c 6.0 H, Calcium 9.8 12/20/24 12:11: Urine Color Yellow, Urine Clarity Clear, Urine pH 6.5, Ur Specific [place] 1.015, Urine Protein 15 H, Urine Glucose (UA) Normal, Urine Ketones Negative, Urine Occult Blood Negative, Urine Nitrite Negative, Urine Bilirubin Negative, Urine Urobilinogen Normal, Ur Leukocyte Esterase Negative, Urine RBC 0 SEEN, Urine WBC 0 SEEN, Ur Squamous Epith Cells 0 SEEN, Urine Bacteria 0 SEEN, Urine Mucus 0 SEEN 12/21/24 05:38: WBC 8.1, RBC 4.37 L, Hgb 13.6, Hct 39.0 L, MCV 89.2, MCH 31.1, MCHC 34.9, RDW Std Deviation 42.2, RDW Coeff of Armani 12.9, Plt Count 175, MPV 11.0, Immature Gran % (Auto) 0.200, Neut % (Auto) 75.9 H, Lymph % (Auto) 11.4 L, [place] % (Auto) 9.5, Eos % (Auto) 1.9, Baso % (Auto) 1.1 H, Absolute Neuts (auto) 6.2, Absolute Lymphs (auto) 0.92, Nucleated RBC % 0, Sodium 136, Potassium 4.2, Chloride 104, Carbon Dioxide 19.1 L, Anion Gap 13, BUN 23 H, Creatinine 1.03, Estim Creat Clear Calc 63.41, Est GFR (MDRD) Non-Af 70, BUN/Creatinine Ratio 22.5 H, Glucose 99, Calcium 9.5, Phosphorus 2.7, Magnesium 2.1, Total Bilirubin 1.43 H, AST 31, ALT 13, Alkaline Phosphatase 144 H, Total Protein 7.1, Albumin 4.1, Globulin 2.9, Albumin/Globulin Ratio 1.4, Triglycerides 47, Cholesterol 105, LDL Cholesterol, Calc 40, VLDL Cholesterol 9, HDL Cholesterol 55, Cholesterol/HDL Ratio 1.90 Radiography Diagnostic Testing: Radiology Impression Chest X-Ray 12/20/24 11:27 IMPRESSION: Cardiac enlargement. Otherwise no active cardiopulmonary disease. Reading Location: [facility] 12/20/24 11:38 IMPRESSION: 1. Generalized brain atrophy. 2. Small vessel ischemic/degenerative changes. 3. No acute intracranial hemorrhage, midline shift or mass effect. If symptoms persist, further evaluation with MRI is recommended. 4. No significant change from the prior exam. Reading Location: [facility] Head/Neck CTA 12/20/24 15:07 IMPRESSION: 1. Approximately 50% narrowing of the right internal carotid artery at its origin. 2. No critical stenoses are noted in the carotid arteries. 3. No intracranial aneurysms or arteriovenous malformations. 4. No signs of acute intracranial hemorrhage or ischemic infarction. 5. Enhancing lesion at the vertex of the calvarium on the left most concerning for small meningioma. 6. Mild bilateral maxillary sinus inflammation. 7. Other nonacute findings detailed above. Reading [facility] MRI 12/20/24 16:59 IMPRESSION: Small right frontal lobe acute infarction. Stable probable meningioma. Interval enlargement and convexity of the pituitary gland suspicious for an underlying lesion. Further characterization with nonemergent MRI pituitary is recommended. The ordering provider was instructed to call the radiologist by the navigator and because the callback number was not able to be reached. Reading Location: [id number] Rhythm Strip Rhythm Strip: A-fib Rate: 61 Ectopy: None Physical Exam Const alert and no apparent distress Constitutional Narrative: slightly confused. HEENT head/scalp atraumatic and moist oral mucous membranes Resp normal respiratory effort, no retractions, no use of accessory muscles and clear to auscultation bilaterally Cardio regular rate, regular rhythm, S1 normal heart sound and S2 normal heart sound GI normal to inspection, nondistended, normoactive bowel sounds, soft to palpation, non-tender and non-distended Extremity normal to inspection, full ROM and no clubbing, cyanosis or edema Neuro Sensorium / Orientation: awake, alert, oriented to person and oriented to place Assessment & Plan Assessment/Plan (1) Stroke: PLAN: MRI brain showed small right frontal lobe acute infarct check echo [facility] had been off apixaban and ASA since 12/07 for a procedure. Currently on ASA. (2) Pituitary lesion: PLAN: incidental finding on MRI. Interval enlargement and convexity of the pituitary gland. Will need dedicated pituitary MRI PLAN: Plan pAfib: apixaban held given upcoming procedure. Defer to neurology when it could be resumed given the acute CVA. VTE prophylaxis: LMWH. Charges/Coding Visit Charges Inpatient E&M: 72468 Subs Hosp L2 NIHSS NIHSS Nursing Documentation NIHSS Nursing Documentation: NIHSS: Ischemic Stroke/TIA Start: 12/20/24 18:23 Text: For PCU Patients: NIH and Neuro Check every 4 Status: Active hours, PRN and with change in RN caregiver. Freq: [id number] Protocol: Activity Type Activity Date Activity User E-sign Co-sign Detail Recorded Client Recorded Date Recorded By Document 12/21/24 06:19 [id number] 12/21/24 06:35 12/21/24 06:19 NIH Stroke Scale [NIHSS] A score of 0 is normal or asymptomatic . Total possible score is 42. Inpatient: RN or Physician to activate a stroke alert for onset of new stroke symptoms or with NIHSS increase >/= 3 points. Following change in neurological status, NIHSS will be performed per physician order or more frequently PRN. -1a. Level of Consciousness 0 - Alert; keenly responsive -1b. LOC Questions 1 - Answers ONE question correctly -1c. LOC Commands 1 - Performs ONE task correctly -2. Best Gaze 0 - Normal -3. Visual 0 - No visual loss -4. Facial Palsy 0 - Normal symmetrical movements -5a. Left Arm 0 - No drift; arm holds 90 ( or 45) degrees for full 10 seconds -5b. Right Arm 0 - No drift; arm holds 90 ( or 45) degrees for full 10 seconds -6a. Left Leg 0 - No drift; leg holds 30- degree position for full 5 seconds -6b. Right Leg 0 - No drift; leg holds 30- degree position for full 5 seconds -7. Limb Ataxia 0 - Absent -8. Sensory 0 - Normal; no sensory loss -9. Best Language 1 - Mild-to- moderate aphasia; -10. Dysarthria 1 = Mild-to- moderate dysarthria; -11. Extinction and Inattention 1 - Visual, tactile, auditory, spatial, or personal inattention; -Total 5 Query Text:A score of 0 is normal or asymptomatic. Total possible score is 42 . ED: Notify Physician for NIHSS increase by > / = 3 points. Inpatient: RN or Physician to activate a stroke alert for NIHSS increase of > / = 3 points. Coma Scale [Assess] -Eye Opening Spontaneous -Motor Obeys Commands -Verbal Oriented [Total] -Coma Scale Total 15
--- NOTE | 2024-12-21 12:15 | NEURO.CONS ---
Assessment and Plan: Neuro Assessment/Plan SCARLETT STEVENS is a 89 M w/ afib on eliquis, copd, bph, cad, htn, hld, and radha who presented to OSH with generalized weakness and fall. Patients states he was on his chair watching tv and when he tried to get up his legs gave up underneath him. Maybe his right leg was weaker. No real focal symptoms. EMS was called for fall and weakness. He was taken to OSH. CTH/CTA were neg. He was admitted for stroke workup. Of note he has been on and off ac for BPH procedure which has been scheduled and then cancelled. He was recently off ac as his BPH was scheduled for this week. MRI brain was done which showed a right frontal ischemic stroke. Stroke is cardioembolic from afib not on ac. Plan: - Only need for AC from stroke standpoint, can start eliquis on 12/23/24 - Cont on ASA 81mg until eliquis is started - Statin - Agree with TTE to make sure no acute issues - CV risk factor optimization - follow up with neuro after dc - No further recs, stroke to sign off HPI Consult Data Date of Consult: 12/21/24 HPI Narrative HPI Narrative: SCARLETT STEVENS is a 89 M w/ afib on eliquis, copd, bph, cad, htn, hld, and radha who presented to OSH with generalized weakness and fall. Patients states he was on his chair watching tv and when he tried to get up his legs gave up underneath him. Maybe his right leg was weaker. No real focal symptoms. EMS was called for fall and weakness. He was taken to OSH. CTH/CTA were neg. He was admitted for stroke workup. Of note he has been on and off ac for BPH procedure which has been scheduled and then cancelled. He was recently off ac as his BPH was scheduled for this week. MRI brain was done which showed a right frontal ischemic stroke. Stroke is cardioembolic from afib not on ac. [facility] Medical History Anxiety Osteoporosis Irregular heart beat Coronary artery disease Hypertension Loss of hearing Ambulates with cane Cyst of kidney, acquired Prostate disease Sleep apnea Smokeless tobacco use Former smoker Right leg pain Depression Congestive heart failure (CHF) Atrial fibrillation with normal ventricular rate Hypoxia Cellulitis of leg without foot, left UTI (urinary tract infection) Chest pain Atrial fibrillation Anemia High cholesterol Shortness of breath on exertion History of echocardiogram History of stress test Olecranon bursitis, right elbow Strain of tendon of right rotator cuff Insect bite of hand with infection Wears glasses Wears hearing aid Wears partial dentures Rash Arthritis Chewing tobacco use Non-smoker History of edema Cardiology follow-up encounter Syncope and collapse Persistent atrial fibrillation Epistaxis Chronic diastolic (congestive) heart failure Atherosclerotic heart disease of [place] coronary artery without angina pectoris BPH with urinary obstruction Hyperlipidemia Essential (primary) hypertension Obstructive sleep apnea Hypersomnia Hypoxia Renal cyst Diverticulitis Leg swelling Hiatal hernia COPD (chronic obstructive pulmonary disease) Home Medications ?Medication ?Instructions ?Recorded ?Last Taken ?Type cholecalciferol (vitamin D3) 25 25 mcg PO DAILY SUPPLEMENT 06/27/20 12/19/24 History mcg (1,000 unit) capsule finasteride 5 mg tablet 5 mg PO DAILY PROSTATE 06/03/22 12/19/24 History nitroglycerin 0.4 mg sublingual 0.4 mg sublingual Q5-15M PRN CHEST 10/31/22 Unknown Rx tablet PAIN #25 tabs aspirin 81 mg tablet,delayed 81 mg PO DAILY HEART HEALTH 09/23/23 12/07/24 History release (Adult Aspirin Regimen) Held on 12/20/24. Instructions: MD Ordered vit C 250 mg-vit E 90 mg-zinc 40 1 tab PO BID supplement 06/14/24 12/19/24 History mg-copper 1 [id number] capsule (PreserVision AREDS-2) metoprolol succinate 25 mg 25 mg PO DAILY BLOOD PRESSURE #90 08/26/24 12/19/24 Rx tablet,extended release 24 hr tabs spironolactone 25 mg tablet 25 mg PO DAILY BLOOD PRESSURE #90 08/26/24 12/19/24 Rx tabs albuterol sulfate 2.5 mg/3 mL 2.5 mg (3 mL) inhalation Q4H PRN 09/06/24 12/19/24 Rx (0.083 %) solution for nebulization shortness of breath or wheezing #75 mL apixaban 5 mg tablet (Eliquis) 5 mg PO BID BLOOD THINNER #60 tabs 10/21/24 12/07/24 Rx Held on 12/20/24. Instructions: MD Ordered atorvastatin 20 mg tablet (Lipitor) 20 mg PO DAILY CHOLESTEROL #90 10/21/24 12/19/24 Rx tabs polyethylene glycol 3350 17 gram 17 g PO DAILY 11/10/24 11/23/24 History oral powder packet (Miralax) furosemide 40 mg tablet (Lasix) 40 mg PO BID #180 tabs 12/02/24 12/19/24 Rx fluticasone 100 mcg-salmeterol 50 1 ea inhalation BID 12/17/24 12/19/24 History mcg/dose blistr powdr for inhalation methenamine hippurate 1 gram tablet 1 g PO QDAY 12/17/24 12/19/24 History ascorbic acid (vitamin C) 1,000 mg 1 g PO DAILY 12/20/24 12/19/24 History capsule Allergy/AdvReac Type Severity Reaction Status Date / Time peanut Allergy Itching Verified 12/20/24 15:40 levofloxacin (From Levaquin) AdvReac Rash Verified 12/20/24 15:40 Family History Brother Colon cancer Mother Hypertension Father Hypertension Other No pertinent family history Surgical History History of colonoscopy History of cardiac catheterization History of coronary artery stent placement (08/17/20) History of colonoscopy with polypectomy History of transurethral resection of prostate History of orchiectomy History of cataract surgery Social History household members: spouse Smoking Status: Former smoker alcohol intake: never substance use type: does not use caffeine: Yes Type: coffee Number of servings: 2 Vital Signs Vital Signs Vital Signs: 12/20/24 13:00 12/20/24 14:00 12/20/24 14:33 Temperature 98.6 F Temperature Source Pulse Rate 61 61 68 Respiratory Rate 19 H 18 23 H Respiratory Effort Respiratory Depth Respiratory Pattern Blood Pressure 122/78 H 125/90 H 136/91 H Blood Pressure Mean 92 101 106 Blood Pressure Source Blood Pressure Position Blood Pressure Location Pulse Ox 100 100 97 Oxygen Delivery Method 12/20/24 15:00 12/20/24 16:44 12/20/24 18:30 Temperature 98.3 F Temperature Source Oral Pulse Rate 54 L 60 57 L Respiratory Rate 16 21 H 16 Respiratory Effort Respiratory Depth Respiratory Pattern Blood Pressure 127/93 H 123/71 H 122/72 H Blood Pressure Mean 104 88 88 Blood Pressure Source Monitor Blood Pressure Position Semi-Fowlers Blood Pressure Location Right Arm Pulse Ox 98 99 100 Oxygen Delivery Method Room Air Room Air Room Air 12/20/24 19:00 12/20/24 19:29 12/20/24 20:28 Temperature Temperature Source Pulse Rate 55 L 71 Respiratory Rate 16 Respiratory Effort Normal Non-Labored Respiratory Depth Normal Respiratory Pattern Normal Normal Blood Pressure Blood Pressure Mean Blood Pressure Source Blood Pressure Position Blood Pressure Location Pulse Ox Oxygen Delivery Method Room Air 12/20/24 20:28 12/20/24 22:21 12/21/24 02:19 Temperature 98.3 F 97.5 F L Temperature Source Oral Oral Pulse Rate 55 L 55 L Respiratory Rate 16 16 Respiratory Effort Respiratory Depth Respiratory Pattern Blood Pressure 109/77 111/69 Blood Pressure Mean 87 83 Blood Pressure Source Monitor Monitor Blood Pressure Position Semi-Fowlers Supine Blood Pressure Location Left Arm Left Arm Pulse Ox 96 98 98 Oxygen Delivery Method Room Air Room Air Room Air 12/21/24 02:35 12/21/24 03:00 12/21/24 06:19 Temperature 98.3 F Temperature Source Oral Pulse Rate 56 L 62 Respiratory Rate 16 Respiratory Effort Normal Non-Labored Respiratory Depth Normal Respiratory Pattern Normal Blood Pressure 117/60 Blood Pressure Mean 79 Blood Pressure Source Monitor Blood Pressure Position Supine Blood Pressure Location Left Forearm Pulse Ox 97 Oxygen Delivery Method Room Air Room Air 12/21/24 07:57 12/21/24 07:57 12/21/24 08:22 Temperature 96.9 F L Temperature Source Axillary Pulse Rate 64 64 Respiratory Rate 18 18 Respiratory Effort Respiratory Depth Respiratory Pattern Normal Blood Pressure 133/60 H Blood Pressure Mean 84 Blood Pressure Source Monitor Blood Pressure Position Supine Blood Pressure Location Right Arm Pulse Ox 95 98 Oxygen Delivery Method Room Air Room Air 12/21/24 11:56 Temperature 97.9 F Temperature Source Oral Pulse Rate 66 Respiratory Rate 17 Respiratory Effort Respiratory Depth Respiratory Pattern Blood Pressure 116/55 L Blood Pressure Mean 75 Blood Pressure Source Monitor Blood Pressure Position Sitting Blood Pressure Location Right Arm Pulse Ox 99 Oxygen Delivery Method Room Air Weight Weight: 112.3 kg Body Mass Index (BMI) 35.5 Physical Exam Narrative - General: NAD, pleasant, cooperative, well nourished, well developed - Head/Eyes: Atraumatic, normocephalic, clear cornea, normal sclera/conjunctive - Neuro: ? Mental Status: AAOX4 & following simple commands. ? Speech: Clear and fluent with good repetition, comprehension, & naming. No aphasia or dysarthria ? CN II: Visual vargas are full to confrontation. ? CN III, IV, : EOMI, no gaze preference, no nystagmus, no ptosis ? CN V: Facial sensation is intact to light touch throughout. ? CN VII: Face is symmetric with normal eye closure and smile. ? CN VII: Hearing is grossly normal to conversational speech. ? Motor: Able to sustain all limbs ? Sensation: Normal to light touch bilaterally. ? Coordination: Normal FTN & HTS. No abn movements seen. Lab / Micro Data 12/21/24 05:38 12/21/24 05:38 Labs: Laboratory Results - last 24 hr 12/20/24 11:15: Hemoglobin A1c 6.0 H 12/20/24 12:11: Urine Color Yellow, Urine Clarity Clear, Urine pH 6.5, Ur Specific [place] 1.015, Urine Protein 15 H, Urine Glucose (UA) Normal, Urine Ketones Negative, Urine Occult Blood Negative, Urine Nitrite Negative, Urine Bilirubin Negative, Urine Urobilinogen Normal, Ur Leukocyte Esterase Negative, Urine RBC 0 SEEN, Urine WBC 0 SEEN, Ur Squamous Epith Cells 0 SEEN, Urine Bacteria 0 SEEN, Urine Mucus 0 SEEN 12/21/24 05:38: WBC 8.1, RBC 4.37 L, Hgb 13.6, Hct 39.0 L, MCV 89.2, MCH 31.1, MCHC 34.9, RDW Std Deviation 42.2, RDW Coeff of Armani 12.9, Plt Count 175, MPV 11.0, Immature Gran % (Auto) 0.200, Neut % (Auto) 75.9 H, Lymph % (Auto) 11.4 L, [place] % (Auto) 9.5, Eos % (Auto) 1.9, Baso % (Auto) 1.1 H, Absolute Neuts (auto) 6.2, Absolute Lymphs (auto) 0.92, Nucleated RBC % 0, Sodium 136, Potassium 4.2, Chloride 104, Carbon Dioxide 19.1 L, Anion Gap 13, BUN 23 H, Creatinine 1.03, Estim Creat Clear Calc 63.41, Est GFR (MDRD) Non-Af 70, BUN/Creatinine Ratio 22.5 H, Glucose 99, Calcium 9.5, Phosphorus 2.7, Magnesium 2.1, Total Bilirubin 1.43 H, AST 31, ALT 13, Alkaline Phosphatase 144 H, Total Protein 7.1, Albumin 4.1, Globulin 2.9, Albumin/Globulin Ratio 1.4, Triglycerides 47, Cholesterol 105, LDL Cholesterol, Calc 40, VLDL Cholesterol 9, HDL Cholesterol 55, Cholesterol/HDL Ratio 1.90 Rhythm Strip Rhythm Strip: A-fib Rate: 61 Ectopy: None Imaging Radiology Impression Chest X-Ray 12/20/24 11:27 IMPRESSION: Cardiac enlargement. Otherwise no active cardiopulmonary disease. Reading Location: [place] [id number] Head/Neck CTA 12/20/24 15:07 IMPRESSION: 1. Approximately 50% narrowing of the right internal carotid artery at its origin. 2. No critical stenoses are noted in the carotid arteries. 3. No intracranial aneurysms or arteriovenous malformations. 4. No signs of acute intracranial hemorrhage or ischemic infarction. 5. Enhancing lesion at the vertex of the calvarium on the left most concerning for small meningioma. 6. Mild bilateral maxillary sinus inflammation. 7. Other nonacute findings detailed above. Reading Location: [place] [id number] Brain MRI 12/20/24 16:59 IMPRESSION: Small right frontal lobe acute infarction. Stable probable meningioma. Interval enlargement and convexity of the pituitary gland suspicious for an underlying lesion. Further characterization with nonemergent MRI pituitary is recommended. The ordering provider was instructed to call the radiologist by the navigator and because the callback number was not able to be reached. Reading Location: [id number] Active Medications Active Medications Active Medications: Current Medications Generic Name Dose Route Start Last Admin Trade Name Freq PRN Reason Stop Dose Admin Acetaminophen 650 mg 12/20/24 18:23 Acetaminophen 325 Mg Tablet PO Q4H PRN PRN Pain 1-10 Or Fever>99.6 Albuterol Sulfate 2.5 mg 12/20/24 22:00 12/21/24 07:56 Albuterol 2.5 Mg/3 Ml Vial.Neb. INHALATION 2.5 mg Q6HWA.RT BETY Administration Ascorbic Acid 1,000 mg 12/21/24 10:00 12/21/24 08:09 Ascorbic Acid 500 Mg Tablet PO Not Given DAILY BETY Aspirin 81 mg 12/21/24 08:00 12/21/24 08:05 Aspirin E.C. 81 Mg Tablet PO Not Given BREAKFAST BETY Atorvastatin Calcium 20 mg 12/21/24 10:00 12/21/24 08:06 Atorvastatin Calcium 20 Mg Tablet PO Not Given DAILY BETY Budesonide 0.5 mg 12/20/24 18:45 12/21/24 07:56 Budesonide Respules 0.5 Mg/2 Ml Ampul.Neb. INHALATION 0.5 mg Q12H.RT BETY Administration Cholecalciferol 25 mcg 12/21/24 10:00 12/21/24 08:10 Cholecalciferol (Vit D3) 25 Mcg Tablet (1,000 Units) PO Not Given DAILY BETY Enoxaparin Sodium 40 mg 12/21/24 10:00 12/21/24 08:24 Enoxaparin 40 Mg/0.4 Ml Syringe SC 40 mg DAILY BETY Administration Finasteride 5 mg 12/21/24 10:00 12/21/24 08:09 Finasteride 5 Mg Tablet PO Not Given DAILY BETY Furosemide 40 mg 12/20/24 22:00 12/21/24 08:06 Furosemide 40 Mg Tablet PO Not Given BID [facility] Protocol Hydralazine HCl 5 mg 12/20/24 18:23 Hydralazine 20 Mg/Ml Vial IV 12/21/24 18:23 Q30M PRN maintain BP parameters with HR <60 Sodium Chloride 250 mls @ 15 mls/hr 12/20/24 18:33 IV .[id number] PRN Saline Flush Sodium Chloride 250 mls @ 15 mls/hr 12/20/24 18:33 IV .[id number] PRN Additional IVPB Infusion Labetalol HCl 10 - 20 mg 12/20/24 18:23 Labetalol 20 Mg/4 Ml Vial IV 12/21/24 18:23 Q10M PRN PRN maintain BP parameters with HR >/=60 Methenamine Hippurate 1 gm 12/20/24 18:23 12/21/24 08:06 Methenamine Hippurate 1 Gm Tablet PO Not Given DAILY BETY Metoprolol Succinate 25 mg 12/21/24 10:00 12/21/24 08:09 Metoprolol(Xl)Succ 25 Mg Tablet PO Not Given DAILY [facility] Protocol Multivitamins/Minerals 1 cap 12/20/24 22:00 12/21/24 08:06 Multivitamin (Healthy Eyes) Capsule PO Not Given BID BETY Polyethylene Glycol 17 gm 12/21/24 10:00 12/21/24 08:06 Polyethylene Glycol 3350 17 Gm Packet PO Not Given DAILY BETY Senna/Docusate Sodium 2 tablet 12/20/24 18:23 Senna/Docusate Sodium 1 Tablet PO BID PRN PRN Constipation Sodium Chloride 10 - 40 ml 12/20/24 18:33 0.9% Saline Lock 10 Ml Syringe IV UD PRN SALINE FLUSH NIHSS NIHSS Nursing Documentation NIHSS Nursing Documentation: NIHSS: Ischemic Stroke/TIA Start: 12/20/24 18:23 Text: For PCU Patients: NIH and Neuro Check every 4 Status: Active hours, PRN and with change in RN caregiver. Freq: [id number] Protocol: Activity Type Activity Date Activity User E-sign Co-sign Detail Recorded Client Recorded Date Recorded By Document 12/21/24 10:00 [id number] 12/21/24 11:59 AB 12/21/24 10:00 NIH Stroke Scale [NIHSS] A score of 0 is normal or asymptomatic . Total possible score is 42. Inpatient: RN or Physician to activate a stroke alert for onset of new stroke symptoms or with NIHSS increase >/= 3 points. Following change in neurological status, NIHSS will be performed per physician order or more frequently PRN. -1a. Level of Consciousness 0 - Alert; keenly responsive -1b. LOC Questions 1 - Answers ONE question correctly -1c. LOC Commands 1 - Performs ONE task correctly -2. Best Gaze 0 - Normal -3. Visual 0 - No visual loss -4. Facial Palsy 0 - Normal symmetrical movements -5a. Left Arm 0 - No drift; arm holds 90 ( or 45) degrees for full 10 seconds -5b. Right Arm 0 - No drift; arm holds 90 ( or 45) degrees for full 10 seconds -6a. Left Leg 0 - No drift; leg holds 30- degree position for full 5 seconds -6b. Right Leg 0 - No drift; leg holds 30- degree position for full 5 seconds -7. Limb Ataxia 0 - Absent -8. Sensory 0 - Normal; no sensory loss -9. Best Language 1 - Mild-to- moderate aphasia; -10. Dysarthria 1 = Mild-to- moderate dysarthria; -11. Extinction and Inattention 1 - Visual, tactile, auditory, spatial, or personal inattention; -Total 5 Query Text:A score of 0 is normal or asymptomatic. Total possible score is 42 . ED: Notify Physician for NIHSS increase by > / = 3 points. Inpatient: RN or Physician to activate a stroke alert for NIHSS increase of > / = 3 points. Coma Scale [Assess] -Eye Opening Spontaneous -Motor Obeys Commands -Verbal Oriented [Total] -Coma Scale Total 15
--- NOTE | 2024-12-21 13:57 | CASEMGMT ---
MIKE called patient's Caitie to discuss d/c planning. MIKE left Caitie a voice mail to call MIKE back. Monique RODRIGUEZ
--- NOTE | 2024-12-21 15:47 | CASEMGMT ---
MIKE received a return call from patient's Caitie. MIKE explained therapy's recommendations. Caitie asked about [facility] TCU or Rehab Unit. SW told her SW can make a referral. MIKE told Caitie SW will get back to her and patient tomorrow. Caitie declined a list unless TCU or Rehab cannot take patient. MIKE made a referral to both Rehab and TCU. Monique RODRIGUEZ
--- NOTE | 2024-12-21 15:52 | CHAPLAIN ---
Type of Pastoral Visit _x__ Initial Visit ___ Follow-up Visit ___ On-call Visit ___ General Patient Visit ___ Spiritual Assessment ___ Family Conference ___ Bereavement ___ Rapid Response ___ Code Blue ___ Other (describe below) Pastoral Care Referral From _x__ Patient ___ Family ___ Nurse ___ Physician ___ [employer] Police Sergeant ___ Utility Operator ___ Other (describe below) Sacrament/Intervention _x__ Active listening ___ Anointing ___ Samaritan ___ Bereavement ___ Communion ___ Linda exploration ___ ___ Life review _x__ Prayer ___ Reconciliation ___ Sacrament of Sick _x__ Supportive presence ___ Wedding ___ Other (describe below) Pastoral Comments patient remembers this disk sharpener from previous admission and welcomes him to visit; pt explains what he knows about his situation but admits that he is not fully aware of what is happening; pt is content with situation and how he is being treated; PREPARATION SUPERVISOR comes at this time to assist with pt's lunch; brief visit and prayer concludes this encounter
[2024-12-21] MEDS: Multivitamin (Healthy Eyes) Capsule 1 CAP PO (22:35)
[2024-12-21] MEDS: Furosemide 40 MG Tablet PO (22:35)
[2024-12-22] VITALS (8 sets, daily range): BP systolic 107–123; BP diastolic 65–74; PULSE 56–78; RESP 15–18; TEMP 36.4–36.6; O2SAT 94–98; BMI 35.5
[2024-12-22] MEDS: Budesonide Respules 0.5 MG/2 ML AMPUL.NEB. INHALATION (07:25)
[2024-12-22] MEDS: Albuterol 2.5 MG/3 ML VIAL.NEB. INHALATION (07:25)
[2024-12-22] MEDS: Aspirin E.C. 81 MG Tablet PO (07:53)
[2024-12-22] MEDS: Atorvastatin Calcium 20 MG Tablet PO (08:06)
[2024-12-22] MEDS: Methenamine Hippurate 1 GM Tablet PO (08:06)
[2024-12-22] MEDS: Enoxaparin 40 MG/0.4 ML Syringe SC (08:06)
[2024-12-22] MEDS: Multivitamin (Healthy Eyes) Capsule 1 CAP PO (08:06)
[2024-12-22] MEDS: Furosemide 40 MG Tablet PO (08:06)
[2024-12-22] MEDS: Metoprolol(XL)Succ 25 MG Tablet PO (08:07)
[2024-12-22] MEDS: Finasteride 5 MG Tablet PO (08:07)
[2024-12-22] MEDS: Polyethylene Glycol 3350 17 GM PACKET PO (08:07)
[2024-12-22] MEDS: Cholecalciferol (VIT D3) 25 MCG TABLET (1,000 UNITS) PO (08:08)
[2024-12-22] MEDS: Ascorbic Acid 500 MG Tablet 1000 MG PO (08:08)
--- NOTE | 2024-12-22 09:09 | PCM.PN.HOSP ---
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 Objective Data Objective Data Vital Signs: Vital Signs Temp Pulse Resp BP Pulse Ox O2 Del Method 36.4 C L 69 18 116/65 94 Room Air 12/22/24 07:45 12/22/24 08:07 12/22/24 07:45 12/22/24 07:45 12/22/24 07:45 12/22/24 07:46 Oxygen Delivery Method Room Air Weight: 112.3 kg Body Mass Index (BMI) 35.5 Intake & Output: Intake and Output for Last 24 Hours 12/20/24 12/21/24 12/22/24 23:59 23:59 23:59 Intake Total 100 / 100 Output Total 1050 / 1050 600 / 600 Balance -950 / -950 -600 / -600 Lab / Micro Data 12/21/24 05:38 12/21/24 05:38 Radiography Diagnostic Testing: Radiology Impression Echocardiogram 12/20/24 16:59 Interpretation Summary Severe concentric left ventricular hypertrophy. Mild LV global systolic dysfunction. Estimated LVEF 45%. At least stage I diastolic dysfunction. There is moderate biatrial dilatation. Mild to moderate (1-2+) tricuspid valve insufficiency. Right ventricular systolic pressure estimated to be 43 mmHg. The study was technically difficult. Ordering Physician: Lucero Acevedo Referring Physician: Daphne Woods Performed By: Keisha Peralta, MEENAKSHI, RVT Rhythm Strip Rhythm Strip: A-fib Rate: 61 Ectopy: None Physical Exam Const alert and no apparent distress HEENT head/scalp atraumatic and moist oral mucous membranes Resp normal respiratory effort, no retractions, no use of accessory muscles and clear to auscultation bilaterally Cardio regular rate, regular rhythm, S1 normal heart sound and S2 normal heart sound GI normal to inspection, nondistended, normoactive bowel sounds, soft to palpation, non-tender and non-distended Extremity normal to inspection Neuro Sensorium / Orientation: awake and alert Assessment & Plan Assessment/Plan (1) Stroke: PLAN: MRI brain showed small right frontal lobe acute infarct Echo shows an EF 45% (down from 55% from 07/2024) RSVP 43mmHg [facility]: recommending resumption of apixaban on 12/23 and outpt follow up. had been off apixaban and ASA since 12/07 for a procedure. Currently on ASA. (2) Pituitary lesion: PLAN: incidental finding on MRI. Interval enlargement and convexity of the pituitary gland. May need dedicated pituitary MRI. Follow up with neurosurgery for further recommendations. PLAN: Plan pAfib: apixaban held given upcoming procedure. VTE prophylaxis: LMWH. Dispo: to rehab NIHSS NIHSS Nursing Documentation NIHSS Nursing Documentation: NIHSS: Ischemic Stroke/TIA Start: 12/20/24 18:23 Text: For PCU Patients: NIH and Neuro Check every 4 Status: Active hours, PRN and with change in RN caregiver. Freq: [id number] Protocol: Activity Type Activity Date Activity User E-sign Co-sign Detail Recorded Client Recorded Date Recorded By Document 12/22/24 07:45 [id number] 12/22/24 07:45 12/22/24 07:45 NIH Stroke Scale [NIHSS] A score of 0 is normal or asymptomatic . Total possible score is 42. Inpatient: RN or Physician to activate a stroke alert for onset of new stroke symptoms or with NIHSS increase >/= 3 points. Following change in neurological status, NIHSS will be performed per physician order or more frequently PRN. -1a. Level of Consciousness 0 - Alert; keenly responsive -1b. LOC Questions 1 - Answers ONE question correctly -1c. LOC Commands 0 - Performs BOTH tasks correctly -2. Best Gaze 0 - Normal -3. Visual 0 - No visual loss -4. Facial Palsy 0 - Normal symmetrical movements -5a. Left Arm 0 - No drift; arm holds 90 ( or 45) degrees for full 10 seconds -5b. Right Arm 0 - No drift; arm holds 90 ( or 45) degrees for full 10 seconds -6a. Left Leg 0 - No drift; leg holds 30- degree position for full 5 seconds -6b. Right Leg 0 - No drift; leg holds 30- degree position for full 5 seconds -7. Limb Ataxia 0 - Absent -8. Sensory 0 - Normal; no sensory loss -9. Best Language 1 - Mild-to- moderate aphasia; -10. Dysarthria 1 = Mild-to- moderate dysarthria; -11. Extinction and Inattention 0 - No abnormality -Total 3 Query Text:A score of 0 is normal or asymptomatic. Total possible score is 42 . ED: Notify Physician for NIHSS increase by > / = 3 points. Inpatient: RN or Physician to activate a stroke alert for NIHSS increase of > / = 3 points. Coma Scale [Assess] -Eye Opening Spontaneous -Motor Obeys Commands -Verbal Confused [Total] -Coma Scale Total 14
--- NOTE | 2024-12-22 11:44 | CASEMGMT ---
[facility] Rehab has accepted patient. SW will talk with patient and his when patient's comes in today. Monique RODRIGUEZ
--- NOTE | 2024-12-22 13:48 | CASEMGMT ---
SW spoke with patient and his Caitie. SW introduced self and role at [facility]. SW explained to patient that therapy is recommending he go somewhere short term for Rehab. SW explained that [facility] has a Rehab Unit that said they would be happy to take him. SW explained that he would have his own room and get therapy at least 6 days a week. Patient and his were both agreeable with this plan. SW notified physician. Plan: d/c to [facility] Acute Rehab. Monique RODRIGUEZ
--- NOTE | 2024-12-22 14:30 | PCM.DC.SUM ---
Providers Date of Admission: 12/20/24 Primary Care Physician: Dr. Daphne Woods MD Consultations 12/20/24 18:23 Consult: Tele-Neurology Routine Consulting Provider: [facility] Reason for Consult: Acute Ischemic Stroke/TIA EMERGENT Consult: No MD Notified: Yes Date Notified: 12/20/24 Time Notified: 18:51 Method of Notification: Answering Service Nursing Unit Staff Notify [facility] of Tele-Neurology Consult: Yes Reason For Visit: WEAKNESS Diagnosis Discharge Diagnosis (1) Stroke: Status: Acute Code(s): I63.9 - Cerebral infarction, unspecified Plan: MRI brain showed small right frontal lobe acute infarct Echo shows an EF 45% (down from 55% from 07/2024) RSVP 43mmHg [facility]: recommending resumption of apixaban on 12/23 and outpt follow up. had been off apixaban and ASA since 12/07 for a procedure. Currently on ASA. (2) Pituitary lesion: Status: Acute Code(s): E23.7 - Disorder of pituitary gland, unspecified Plan: incidental finding on MRI. Interval enlargement and convexity of the pituitary gland. May need dedicated pituitary MRI. Follow up with neurosurgery for further recommendations. Plan pAfib: apixaban held given upcoming procedure. VTE prophylaxis: LMWH. Dispo: to rehab Medications at Discharge Home Medications cholecalciferol (vitamin D3) 25 mcg (1,000 unit) capsule 25 mcg PO DAILY SUPPLEMENT 06/27/20 finasteride 5 mg tablet 5 mg PO DAILY PROSTATE 06/03/22 nitroglycerin 0.4 mg sublingual tablet 0.4 mg sublingual Q5-15M PRN CHEST PAIN #25 tabs 10/31/22 aspirin 81 mg tablet,delayed release (Adult Aspirin Regimen) 81 mg PO DAILY HEART HEALTH 09/23/23 vit C 250 mg-vit E 90 mg-zinc 40 mg-copper 1 [id number]-kmnryd capsule (PreserVision AREDS-2) 1 tab PO BID supplement 06/14/24 metoprolol succinate 25 mg tablet,extended release 24 hr 25 mg PO DAILY BLOOD PRESSURE #90 tabs 08/26/24 spironolactone 25 mg tablet 25 mg PO DAILY BLOOD PRESSURE #90 tabs 08/26/24 albuterol sulfate 2.5 mg/3 mL (0.083 %) solution for nebulization 2.5 mg (3 mL) inhalation Q4H PRN shortness of breath or wheezing #75 mL 09/06/24 apixaban 5 mg tablet (Eliquis) 5 mg PO BID BLOOD THINNER #60 tabs 10/21/24 Held on 12/22/24. Instructions: Resume on 12/23/24. atorvastatin 20 mg tablet (Lipitor) 20 mg PO DAILY CHOLESTEROL #90 tabs 10/21/24 polyethylene glycol 3350 17 gram oral powder packet (Miralax) 17 g PO DAILY 11/10/24 furosemide 40 mg tablet (Lasix) 40 mg PO BID #180 tabs 12/02/24 fluticasone 100 mcg-salmeterol 50 mcg/dose blistr powdr for inhalation 1 ea inhalation BID 12/17/24 methenamine hippurate 1 gram tablet 1 g PO QDAY 12/17/24 ascorbic acid (vitamin C) 1,000 mg capsule 1 g PO DAILY 12/20/24 Hospital Course Operations None Procedures 2-D Echocardiogram Summary of Care Provided Minutes Spent on Discharge: 32 Hospital Course: This 89-year-old male presents to the emergency room with complaint of falls, slurred speech and facial droop. Patient was last known normal in the night before. Patient does have a history of paroxysmal atrial fibrillation but had been off of his apixaban since the due to an upcoming urologic procedure. So patient presented to the hospital and had an MRI that showed a small right frontal lobe infarct. Also noted interval enlargement conductivity of the pituitary gland suspicious for an underlying lesion. Nonemergent pituitary MRI recommended. Patient was seen by neurology and recommend resumption of his apixaban on the and continue with aspirin. Patient will need follow-up neurology as outpatient for further stroke recommendations and also whether or not referral to neurosurgery would be necessary. Patient will be discharged to the rehab unit in stable condition. Weight / BMI Weight Weight: 112.3 kg Body Mass Index (BMI) 35.5 ABG / Lab / Microbiology Data 12/21/24 05:38 12/21/24 05:38 D/C Instructions Discharge Diet: Low fat / Low cholesterol DC O2, CPAP, BIPAP Needs Home O2 Discharge instructions: No Meaningful Use Info Meaningful Use Meaningful Use Diagnoses (Choose all that apply): Ischemic CVA CVA Therapy Assessed for PT,OT and/or ST?: Yes Ischemic Stroke Antithrombotic order at d/c?: Yes Dx of Atrial fib/flutter?: Yes Anticoagulant at discharge?: Yes Statin Dosing Therapy Reference: STATIN DOSE THERAPY REFERENCE: * Patients > 75 years receive moderate or high dose statin therapy. * Patients 75 years or YOUNGER should receive HIGH intensity statin dose unless contraindicated. You will be required to document reason for non-treatment if statin daily dose does not meet guidelines. HIGH DOSE STATIN THERAPY DAILY Atorvastatin > than or = to 40 mg Rosuvastatin > than or = to 20 mg Amlodipine + Atorvastatin > than or = to 2.5/40 mg Ezetimibe + Simvastatin 10/80 mg Simvastatin 80mg Statins at discharge?: Yes Primary Dx Acute Ischemic CVA?: Yes IV thrombolytic ordered during stay?: No Reason IV thrombolytic not ordered: Treatment not Indicated Discharge Plan Admission Admit Date/Time: 12/20/24 16:55 Primary Reason for Your Visit: CVA Attending Provider: Damián Flores Primary Care Provider: Daphne Woods Consulting Providers: Taursu Russo; Mira Abel; Catarina Temple; Melodie Crook; Suma Salamanca; Marquez Mark; Cassie Hilliard; Mk Gaytan; Rocael Yeboah; Diego Pope; Caitie Bartholomew; Vitor Nguyen; Pily Sweeney; Eric Vazquez; Nedra Muñoz; Castillo Wilkes; Tico Soares; Emerson Reed; Cadence Acevedo; Yanni Luis; Lucero Acevedo Discharge Orders/Prescriptions Prescriptions: Continued cholecalciferol (vitamin D3) 25 mcg (1,000 unit) capsule 25 mcg PO DAILY PreserVision AREDS-2 250-90-40-1 mg capsule 1 tab PO BID Rx Instructions: administer with meals finasteride 5 mg tablet 5 mg PO DAILY nitroglycerin 0.4 mg tablet, sublingual 0.4 mg SUBLINGUAL Q5-15M PRN (Reason: CHEST PAIN ) Qty: 25 3RF Rx Instructions: do not exceed 3 doses per episode spironolactone 25 mg tablet 25 mg PO DAILY Qty: 90 3RF metoprolol succinate 25 mg tablet extended release 24 hr 25 mg PO DAILY Qty: 90 3RF albuterol sulfate 2.5 mg /3 mL (0.083 %) solution for nebulization 2.5 mg inhalation Q4H PRN (Reason: shortness of breath or wheezing) Qty: 75 1RF methenamine hippurate 1 gram tablet 1 g PO QDAY fluticasone propion-salmeterol 100-50 mcg/dose blister with device 1 ea inhalation BID polyethylene glycol 3350 [Miralax] 17 gram powder in packet 17 g PO DAILY aspirin [Adult Aspirin Regimen] 81 mg tablet,delayed release (DR/EC) 81 mg PO DAILY ascorbic acid (vitamin C) 1,000 mg capsule 1 g PO DAILY atorvastatin [Lipitor] 20 mg tablet 20 mg PO DAILY Qty: 90 3RF furosemide [Lasix] 40 mg tablet 40 mg PO BID Qty: 180 3RF Held Eliquis 5 mg tablet 5 mg PO BID Qty: 60 11RF Hold Instructions: Resume on 12/23/24. Referrals / Follow Up: Daphne Woods MD [Primary Care Provider] - [facility] [Provider Group] - Within 1 Month Disposition Disposition (needs filled in before D/C Order can be placed): Inpatient Rehab Unit/Facility Charges/Coding Visit Charges Inpatient E&M: 43803 Disch Hosp >30min
--- NOTE | 2024-12-22 15:19 | PHA.DC.MR.R ---
Pharmacy [place] Med Reconciliation Pharmacy Service has performed discharge medication reconciliation for this patient. The patient's discharge medication list was reviewed for discrepancies and discrepancies were resolved. Medications at Discharge Home Medications cholecalciferol (vitamin D3) 25 mcg (1,000 unit) capsule 25 mcg PO DAILY SUPPLEMENT 06/27/20 finasteride 5 mg tablet 5 mg PO DAILY PROSTATE 06/03/22 nitroglycerin 0.4 mg sublingual tablet 0.4 mg sublingual Q5-15M PRN CHEST PAIN #25 tabs 10/31/22 aspirin 81 mg tablet,delayed release (Adult Aspirin Regimen) 81 mg PO DAILY [facility] 09/23/23 vit C 250 mg-vit E 90 mg-zinc 40 mg-copper 1 qg-ogvzko-bbgghi capsule (PreserVision AREDS-2) 1 tab PO BID supplement 06/14/24 metoprolol succinate 25 mg tablet,extended release 24 hr 25 mg PO DAILY BLOOD PRESSURE #90 tabs 08/26/24 spironolactone 25 mg tablet 25 mg PO DAILY BLOOD PRESSURE #90 tabs 08/26/24 albuterol sulfate 2.5 mg/3 mL (0.083 %) solution for nebulization 2.5 mg (3 mL) inhalation Q4H PRN shortness of breath or wheezing #75 mL 09/06/24 apixaban 5 mg tablet (Eliquis) 5 mg PO BID BLOOD THINNER #60 tabs 10/21/24 Held on 12/22/24. Instructions: Resume on 12/23/24. atorvastatin 20 mg tablet (Lipitor) 20 mg PO DAILY CHOLESTEROL #90 tabs 10/21/24 polyethylene glycol 3350 17 gram oral powder packet (Miralax) 17 g PO DAILY bowels 11/10/24 furosemide 40 mg tablet (Lasix) 40 mg PO BID diuretic #180 tabs 12/02/24 fluticasone 100 mcg-salmeterol 50 mcg/dose blistr powdr for inhalation 1 ea inhalation BID breathing 12/17/24 methenamine hippurate 1 gram tablet 1 g PO QDAY infection 12/17/24 ascorbic acid (vitamin C) 1,000 mg capsule 1 g PO DAILY vitamin 12/20/24
--- NOTE | 2024-12-22 16:07 | NURSING ---
Report called to [facility] in Rehab
== END 2024-12-22 16:38 | DRG 65 ==
LOC: ED 14:47 → PCU 14:56
PROVIDERS: Admitting Provider Internal Medicine; Emergency Provider Emergency Medicine; PCP Internal Medicine
DX: I63.9 Cerebral infarction, unspecified (principal); I50.32 Chronic diastolic (congestive) heart failure; N13.8 Other obstructive and reflux uropathy; I13.0 Hypertensive heart and chronic kidney disease with heart failure and stage 1 through stage 4 chronic kidney disease, or unspecified chronic kidney disease; Z66 Do not resuscitate; N18.31 Chronic kidney disease, stage 3a; J44.9 Chronic obstructive pulmonary disease, unspecified; I35.1 Nonrheumatic aortic (valve) insufficiency; I48.0 Paroxysmal atrial fibrillation; D32.9 Benign neoplasm of meninges, unspecified; I25.10 Atherosclerotic heart disease of native coronary artery without angina pectoris; E78.2 Mixed hyperlipidemia; I45.10 Unspecified right bundle-branch block; G47.33 Obstructive sleep apnea (adult) (pediatric); M19.90 Unspecified osteoarthritis, unspecified site; W19.XXXA Unspecified fall, initial encounter; F41.9 Anxiety disorder, unspecified; I49.9 Cardiac arrhythmia, unspecified; K44.9 Diaphragmatic hernia without obstruction or gangrene; E23.7 Disorder of pituitary gland, unspecified; Z79.01 Long term (current) use of anticoagulants; R29.810 Facial weakness; R47.81 Slurred speech; Z87.891 Personal history of nicotine dependence; Z95.5 Presence of coronary angioplasty implant and graft; N40.1 Benign prostatic hyperplasia with lower urinary tract symptoms; Z79.82 Long term (current) use of aspirin; R29.715 NIHSS score 15; M81.0 Age-related osteoporosis without current pathological fracture; H91.90 Unspecified hearing loss, unspecified ear; Z99.89 Dependence on other enabling machines and devices; N28.1 Cyst of kidney, acquired; Z87.440 Personal history of urinary (tract) infections; Z97.4 Presence of external hearing-aid; Z97.3 Presence of spectacles and contact lenses; Z82.49 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 ischemic heart disease and other diseases of the circulatory system; Z90.49 Acquired absence of other specified parts of digestive tract; Z85.46 Personal history of malignant neoplasm of prostate; Z98.890 Other specified postprocedural states; R29.6 Repeated falls; Z86.79 Personal history of other diseases of the circulatory system
CPT/HCPCS: 70450; 70496; 70498; 70551; 71046; 80048; 80053; 80061; 81001; 83036; 83735; 84100; 85025; 92610; 93005; 93306; 94640; 94668; 94762; 97162; 97166; 97802; 99285; Q9957; Q9967; A4216; C8929

== ENCOUNTER 2024-12-22 16:47 | Inpatient (IN) | payer MEDICARE, OTHER, SELFPAY ==
[2024-09-03 08:27] VITALS: BMI 35.6
[2024-12-22 17:06] VITALS: BP 110/65; PULSE 55; RESP 18; TEMP 36.2; O2SAT 99; BMI 36.8
[2024-12-22 18:00] VITALS: BP 110/65; PULSE 55; RESP 18; TEMP 36.2; O2SAT 99
[2024-12-22 18:37] VITALS: BMI 36.8
[2024-12-22] MEDS: Multivitamin (Healthy Eyes) Capsule 1 CAP PO (20:43)
[2024-12-22] MEDS: Furosemide 40 MG Tablet PO (20:43)
[2024-12-22] MEDS: Senna/Docusate Sodium 1 Tablet 2 TABLET PO (20:43)
--- OUTSIDE RECORDS SUMMARY | 2024-12-22 22:08 | XMS RPT_ITS | CCD ---
Author Organization [facility] Care Team Providers Care Rn Patient Services Name Role Phone Sher Mendosa Primary Care Provider Chuck Paulino Unavailable Chuck Paulino Unavailable Unavailable Sher Mendosa Unavailable Unavailabl e Chuck Paulino Unavailable Unavailable Unavailable Dr. Chuck Paulino Primary Care Provider Dr. Chuck Paulino Referring Provider Roof LOGISTICS SUPPORT, LOGISTICS SUPPORT-C Robby Pollack Attending Provider Dr. La Woods Primary Care Provider Roof LOGISTICS SUPPORT, ARAM-Bess Pollack Referring Provider Roof LOGISTICS SUPPORT, ARAM-Bess Pollack Other Provider Dr. Fabio Garcia Attending Provider Dr. La Woods Primary Care Provider Dr. La Woods Attending Provider Dr. La Woods Referring Provider Dr. Jamarcus Duran Attending Provider ALLAN Espinoza Attending Provider ELDA Head Attending Provider Dr. Jamarcus Duran Other Provider Dr. Chuck Paulino Referring Provider Dr. La Woods Primary Care Provider Roof LOGISTICS SUPPORT, ARAM-Bess Pollack Attending Provider Dr. La Woods Primary Care Provider Dr. La Woods Attending Provider [phone] Dr. La Woods Referring Provider [phone] Roof LOGISTICS SUPPORT, LOGISTICS SUPPORT-C Robby Pollack Attending Provider Dr. Jamarcus Duran Attending Provider Dr. La Woods Primary Care Provider Dr. La Woods Referring Provider Roof LOGISTICS SUPPORT, LOGISTICS SUPPORT-C Robby Pollack Attending Provider Dr. Jose Juan Gill Attending Provider [phone] Dr. Fabio Garcia Attending Provider [phone] Dr. La Woods Attending Provider Cebul, Dr. Jamarcus Sow Attending Provider Cebul, Dr. Jamarcus Sow Referring Provider Renee, Dr. Jamarcus Sow Other Provider Dr. La Woods Primary Care Provider Dr. La Woods Referring Provider ALLAN Manzano Attending Provider Roof LOGISTICS SUPPORT, LOGISTICS SUPPORT-C Robby Pollack Attending Provider Dr. La Woods Primary Care Provider CebulDr. Jamarcus Attending Provider CeDr. Jamarcus fernandez Referring Provider Celateshal, Dr. Jamarcus Sow Other Provider Dr. La Woods Referring Provider ALLAN Manzano Attending Provider [phone] Roof LOGISTICS SUPPORT, LOGISTICS SUPPORT-C Robby Pollack Attending Provider Dr. La Woods Attending Provider Dr. Fabio Garcia Attending Provider [phone] La Woods Primary Care Provider Dr. La Woods Attending Provider Dr. La Woods Referring Provider Dr. Jose Juan Gill Attending Provider [facility] LOGISTICS SUPPORT, LOGISTICS SUPPORT-C Robby Pollack Attending Provider Sarahi, Dr. Cordero Emergency Provider Dr. Lucero Acevedo Admit Provider Dr. Lucero Acevedo Attending Provider Dr. Lucero Acevedo Other Provider Dr. Yayo Esquivel Attending Provider Unavailable Dr. Yayo Esquivel Other Provider Unavailable Dr. Liv Anderson Attending Provider Dr. La Woods Primary Care Provider Dr. La Woods Referring Provider Dr. Jose Juan Gill Attending Provider [facility] LOGISTICS SUPPORT, LOGISTICS SUPPORT-C Robby Pollack Attending Provider Sarahi, Dr. Cordero Emergency Provider Dr. Lucero Acevedo Admit Provider Dr. Lucero Acevedo Attending Provider Dr. Lucero Acevedo Other Provider Dr. Yayo Esquivel Attending Provider Unavailable Dr. Yayo Esquivel Other Provider Unavailable Dr. Liv Anderson Attending Provider Dr. La Woods Attending Provider ELDA Lebron Attending Provider Dr. La Woods Primary Care Provider Dr. La Woods Referring Provider MD Ricardo Sosa Attending Provider Dr. La Woods Primary Care Provider Dr. La Woods Referring Provider LA WOODS Primary Care Unavailable FLYNN FOOTE Attending Unavailable HONEY FORD Attending Unavailable LA WOODS Primary Care Unavailable HONEY FORD Attending Unavailable LA WOODS Primary Care Unavailable LA WOODS Primary Care Unavailable LEIA SPIVEY Attending Unavail rosendo Woods MD, Dr. Serna Primary Care Provider Fabian LOGISTICS SUPPORT-C, Robby Pollack Attending Provider Roof LOGISTICS SUPPORT-C, Robby Pollack Referring Provider Dr. La Woods MD Referring Provider Jairo BAEZ, Dr. Manzano Attending Provider Brenden Wylie Attending Provider Chuck ONTIVEROS, Dr. Serna Attending Provider Gaye BAEZ, Dr. Davis Emergency Provider Derrick ONTIVEROS, Dr. Olivia Mcbride Admit Provider Derrick ONTIVEROS, Dr. Olivia Mcbride Other Provider Alen ONTIVEROS, Dr. Avalos Attending Provider Alvin ONTIVEROS, Dr. Zee Other Provider Unavailable Alvin ONTIVEROS, Dr. Zee Attending Provider Unavaila cely Garcia MD, Dr. Mccarthy Attending Provider Alen ONTIVEROS, Dr. Avalos Other Provider Dr. Valente Coleman DO Attending Provider Dr. Valente Coleman DO Emergency Provider Bernardino LOGISTICS SUPPORT-C, Sydnie Attending Provider Chuck ONTIVEROS, Dr. Serna Primary Care Provider Fabian LOGISTICS SUPPORT-C, Robby Pollack Attending Provider Roof LOGISTICS SUPPORT-C, Robby Pollack Referring Provider Dr. La Woods MD Primary Care Provider Dr. La Woods MD Referring Provider Roof LOGISTICS SUPPORT-C, Robby Pollack Attending Provider Colette De Santiago Attending Provider Colette De Santiago Referring Provider Lit ONTIVEROS, Dr. James Campos Attending Provider Lit ONTIVEROS, Dr. James Campos Referring Provider [phone] Chuck ONTIVEROS, Dr. Serna Primary Care Provider Alen ONTIVEROS, Dr. Avalos Other Provider Chuck ONTIVEROS, Dr. Serna Attending Provider Chuck ONTIVEROS, Dr. Serna Referring Provider Jairo BAEZ, Dr. Manzano Attending Provider Brenden Wylie Attending Provider [phone] Justin ONTIVEROS, Dr. Peck Attending Provider Chuck ONTIVEROS, Dr. Serna Primary Care Provider Chuck ONTIVEROS, Dr. Serna Referring Provider Fabian LOGISTICS SUPPORT-C, Robby Pollack Attending Provider Chuck ONTIVEROS, Dr. Serna Attending Provider Bernardino LOGISTICS SUPPORT-CSydnie Attending Provider Fabian LOGISTICS SUPPORT-C, Robby H Referring Provider Colette De Santiago Attending Provider Colette De Santiago Referring Provider Lit ONTIVEROS, Dr. James Campos Attending Provider Lit ONTIVEROS, Dr. James Campos Referring Provider Justin ONTIVEROS, Dr. Peck Attending Provider Dr. Jose Juan Gill DO Attending Provider Miki LOGISTICS SUPPORT-CKim Attending Provider Wong ONTIVEROS, Dr. Jesus Emergency Provider Curtis BAEZ, Dr. Barker Admit Provider Dr. Lucero Acevedo DO Attending Provider [phone] Lucero Acevedo Admitting Unavailable Chuck, La Primary Care Unavailable Damián Flores Attending Unavailable Taurus Russo Consulting Unavailable Adeli, Amierica Consulting Unavailable Hinduja, Catarina Consulting Unavailable Armaan, Melodie Consulting Unavailable Shane Salamancacia Consulting Unavailable JasMarquez crowell Consulting Unavailable BabakCassie arroyo Consulting Unavailable Mk Gaytan Consulting Unavailable Malgorzata Yeboah Consulting Unavailable Diego Pope Consulting Unavailable Caitie Bartholomew Consulting Unavailable Vitor Nguyen Consulting Unavailable Pily Sweeney Consulting Unavailable Eric Vazquez Consulting Unavailable Toni, Veliad Denton Consulting UnavailCastillo Núñez Consulting Unavailable Tico Soares Consulting Unavailable Emerson Reed Consulting Unavailable Cadence Acevedo Consulting Unavailable Yanni Luis Consulting Unavailable Lucero Acevedo Consulting Unavailable Olivia Meza Admitting Unavailable Olivia Meza Consulting Unavailable Chuck, La Primary Care Unavailable Yayo Esquivel Attending Unavailable Yayo Esquivel Consulting Unavailable Liv Anderson Attending Unavailable James Murrieta Referring Unavailable Chuck, La Primary Care Unavailable Roof LOGISTICS SUPPORT, Robby Pollack Attending Unavailable Chuck, La Primary Care Unavailable Roof LOGISTICS SUPPORT, Robby H Referring Unavailable Sydnie Lebron Attending Unavailable Chuck, La Primary Care Unavailable Chuck, La Referring Unavailable Chuck, La Referring Unavailable Jose Juan Gill Attending Unavailable Chuck, La Primary Care Unavailable Jose Juan Gill Attending Unavailable Chuck, La Primary Care Unavailable Chuck, La Referring Unavailable Roof LOGISTICS SUPPORT, Robby Pollack Attending Unavailable Chuck, La Primary Care Unavailable Chuck, La Referring Unavailable Lucero Acevedo Attending Unavailable Lucero Acevedo Admitting Unavailable Lucero Acevedo Consulting Unavailable Chuck, La Primary Care Unavailable Chuck, La Primary Care Unavailable Chuck, La Referring Unavailable Chuck, La Attending Unavailable Sydnie Lebron Attending Unavailable Chuck, La Primary Care Unavailable Roof LOGISTICS SUPPORT, Robby H Referring Unavailable Roof LOGISTICS SUPPORT, Robby Pollack Attending Unavailable Chuck, La Primary Care Unavailable Roof LOGISTICS SUPPORT, Robby Pollack Attending Unavailable Chuck, La Primary Care Unavailable Chuck, La Referring Unavailable Chuck, La Attending Unavailable Chuck, La Primary Care Unavailable [place] LOGISTICS SUPPORT, Kim Attending Unavailable [place] LOGISTICS SUPPORT, Kim Referring Unavailable Chuck, La Primary Care Unavailable [place] LOGISTICS SUPPORT, Kim Referring Unavailable [place] LOGISTICS SUPPORT, Kim Attending Unavailable Chuck, La Primary Care Unavailable Olivia Meza Attending Unavailable Damián Flores Unavailable GodmanMonica Referring Unavailable Chuck, La Primary Care Unavailable Monica Hayden Attending Unavailable Robby Peralta NP Attending Unavailable Chuck, La Primary Care Unavailable Chuck, La Referring Unavailable Borruso, Jose Juan Attending Unavailable Chuck, La Primary Care Unavailable Chuck, La Referring Unavailable MollisonRicardo Attending Unavailable Chuck, La Primary Care Unavailable Chuck, La Referring Unavailable Chuck, La Primary Care Unavailable Chuck, La Attending Unavailable Chuck, La Primary Care Unavailable Mollison, Ricardo Attending Unavailable Chuck, La Referring Unavailable Chuck, La Primary Care Unavailable Chuck, La Attending Unavailable MariorusoJose Juan Attending Unavailable Chuck, La Primary Care Unavailable Chuck, La Referring Unavailable Brenden Wylie Attending Unavailable Chuck, La Primary Care Unavailable Chuck, La Referring Unavailable Chuck, La Primary Care Unavailable Jose, [place] Attending Unavailable Chuck, La Referring Unavailable Chuck, La Referring Unavailable [place] LOGISTICS SUPPORT, Kim Attending Unavailable Chuck, La Primary Care Unavailable Chuck, La Attending Unavailable Chuck, La Primary Care Unavailable BorrusoJose Juan Attending Unavailable Chuck, La Primary Care Unavailable Chuck, La Referring Unavailable Chuck, La Primary Care Unavailable Brenden Wylie Attending Unavailable Chuck, La Referring Unavailable Borruso, Jose Juan Attending Unavailable Chuck, La Primary Care Unavailable Chuck, La Referring Unavailable Chuck, La Primary Care Unavailable Jose, Fabio Attending Unavailable Chuck, La Attending Unavailable Chuck, La Primary Care Unavailable Chuck, La Primary Care Unavailable Liv Anderson Attending Unavailable Jose, [place] Attending Unavailable Chuck, La Primary Care Unavailable Chuck, La Referring Unavailable Chuck, La Attending Unavailable Chuck, La Primary Care Unavailable Jose Juan Gill Attending Unavailable Chuck, La Primary Care Unavailable Chuck, La Primary Care Unavailable Chuck, La Attending Unavailable Fabio Garcia Attending Unavailable Chuck, La Primary Care Unavailable Alen Robibe Attending Unavailable Alen, Robbie Consulting Unavailable Fabian CHIU, Robby Pollack Attending Unavailable Chuck, La Primary Care Unavailable Chuck, La Referring Unavailable Chuck, La Primary Care Unavailable Ryan Huizar Attending Unavailable Valente Coleman Attending Unavailable Chuck, La Primary Care Unavailable Theresa PA, Colette Victor Referring Unavail able Theresa PAColette Attending Unavail able Chuck, La Primary Care Unavailable Chuck, La Referring Unavailable Chuck, La Attending Unavailable Chuck, La Primary Care Unavailable Chuck, La Attending Unavailable Chuck, La Primary Care Unavailable James Murrieta Attending Unavailable James Murrieta Referring Unavailable Chuck, La Primary Care Unavailable Chuck, La Attending Unavailable Chuck, La Primary Care Unavailable Chuck, La Referring Unavailable Robbie Lowry Attending Unavailable Olivia Meza Admitting Unavailable Olivia Meza Consulting Unavailable Chuck, La Primary Care Unavailable Yayo Esquivel Consulting Unavailable Allergies Allergy Classification Reported Allergen(s) Allergy Type Date of Onset Reaction(s) Facility Peanuts and Peanut Containing Products (1 source) peanut Food Allergy Rash [facility] Work Phone: (3 sources) Nut - Unspecified; Translations: [NUT - UNSPECIFIED] Propensity to adverse reactions to drug 8 Rash [facility] (2 sources) peanut Allergy to substance (finding) Rash [facility] Work Phone: (20 sources) levoFLOXacin; Translations: [LEVOFLOXACIN] Drug Allergy 2 Rash [facility] (20 sources) peanut allergenic extract Drug Allergy 2 Itching [facility] (1 source) levoFLOXacin Drug Allergy 5 [facility] (1 source) peanut allergenic extract Drug Allergy 5 [facility] Medications Current Medications Medication Drug Class(es) Dates Sig (Normalized) Sig (Original) ascorbic acid 1000 mg oral capsule (5 sources) Vitamin C Start: 12-20-2024 take 1 g by mouth once daily Ascorbic Acid (Vitamin C) 1,000 mg capsule Active 1 g PO DAILY December 20, 2024 12:00am Start: 10-21-2024 End: 11-10-2024 take 1 g by mouth once daily Ascorbic Acid (Vitamin C) 1,000 mg capsule Discontinued 1 g PO daily October 21, 2024 12:00am November 10, 2024 10:06am aspirin 81 mg delayed release oral tablet (20 sources) Platelet Aggregation Inhibitor, Nonsteroidal Anti-inflammatory Drug Start: 10-31-2022 End: 09-23-2023 take 1 tablet by mouth once daily Aspirin (Adult Aspirin Regimen) 81 mg tablet,delayed release (DR/EC) Active 81 mg PO DAILY September 23, 2023 1:00am On Hold: Ordered Start: 05-17-2015 End: 08-28-2020 Aspirin (Adult Low Dose Aspi rin) 81 mg tablet,delayed release (DR/EC) Discontinued 81 mg PO DAILY July 26, 2020 1:00am August 28, 2020 12:59pm Start: 05-18-2014 End: 07-26-2020 Aspirin 325 MG tablet Discon tinued 0.5 {tbl} PO DAILY@0800 May 18, 2014 12:00am July 26, 2020 3:54pm betamethasone 0.5 mg/ml / clotrimazole 10 mg/ml topical cream (1 source) Azole Antifungal, Corticosteroid Start: 02-27-2018 clotrimazole-betamethasone (LOTRISONE) cream Apply 1 application topically 2 (two) times a day as needed. 0 02/27/2018 Active cholecalciferol 0.025 mg oral capsule (20 sources) Vitamin D Start: 06-27-2020 take 1 capsule by mouth once daily Cholecalciferol (Vitamin D3) 25 mcg (1,000 unit) capsule Active 25 ug PO DAILY June 27, 2020 1:00am Start: 07-24-2019 take 1 tablet by kelsey th every week Vitamin D3 50 MCG (2000 UT) Oral Tablet TAKE 1 TABLET Weekly Quantity: 0 Refills: 0 Ordered: 24-Jul-2019 DO Start : 24-Jul-2019 Active Start: 05-18-2014 End: 06-27-2020 take 1 tablet by mouth once daily Cholecalciferol (Vitamin D3) 2,000 UNIT tablet Discontinued 2000 U PO DAILY May 18, 2014 12:00am June 27, 2020 1:55pm Start: 01-12-2014 take 1 tablet by kelsey th twice daily cholecalciferol, vitamin D3, (VITAMIN D3) 2,000 unit cap Take 1 tablet by mouth 2 (two) times a day . 0 01/12/2014 Active finasteride 5 mg oral tablet (20 sources) 5-alpha Reductase Inhibitor Start: 06-03-2022 take 1 tablet by mouth once daily Finasteride 5 mg tablet Active 5 mg PO DAILY June 03, 2022 1:00am Start: 05-18-2014 End: 11-23-2020 take 1 tablet by mouth once daily Finasteride 5 MG tablet Discontinued 5 mg PO DAILY May 18, 2014 12:00am November 23, 2020 10:51am Fluticasone Propion-Salmeterol (10 sources) Corticosteroid, beta2-Adrenergic Agonist Start: 12-17-2024 Fluticasone Propion-Salmeterol 100-50 mcg/dose blister with device Active 1 NMA INHALATION TWICE A DAY December 17, 2024 12:00am Start: 07-26-2024 End: 11-10-2024 Fluticasone Propion-Salmeter ol 100-50 mcg/dose blister with device Discontinued 1 NMA INHALATION TWICE A DAY 60 July 26, 2024 1:00am November 10, 2024 10:07am Start: 07-26-2024 End: 11-10-2024 Start: 07-26-2024 methenamine hippurate 1000 m g oral tablet (6 sources) Start: 12-17-2024 Methenamine Hi ppurate 1 gram tablet Active 1 g PO daily December 17, 2024 12:00am Start: 10-21-2024 End: 11-10-2024 Methenamine Hippurate 1 gram tablet Discontinued 1 g PO TWICE A DAY 90 October 21, 2024 12:00am November 10, 2024 10:08am Start: 10-21-2024 End: 11-10-2024 nitroglycerin 0.4 mg sublingual tablet (20 sources) Nitrate Vasodilator Start: 08-28-2020 End: 10-31-2022 Nitroglycerin 0.4 mg tablet, sublingual Active 0.4 mg SL every 5 to 15 minutes as needed for CHEST PAIN October 31, 2022 11:05am do not exceed 3 doses per episode Start: 08-28-2020 End: 10-31-2022 Start: 08-28-2020 End: 10-31-2022 Nitroglycerin Active 0.4 MG SL every 5 to 15 minutes October 31, 2022 11:05am do not exceed 3 doses per episode omega-3 fatty acids/fish oil (OMEGA 3 FISH OIL ORAL) (1 source) Start: 09-29-2012 take 1000 mg by mouth once daily omega-3 fatty acids/fish oil (OMEGA 3 FISH OIL ORAL) Take 1,000 mg by mouth daily. 0 09/29/2012 Active polyethylene glycol 3350 46257 mg powder for oral solution (3 sources) Osmotic Laxative Start: 11-10-2024 Polyethylene Glycol 3350 (Miralax) 17 gram powder in packet Active 17 g PO DAILY November 10, 2024 12:00am [place] (20 sources) Start: 05-18-2014 take 900 mg by mouth once daily [place] Active 900 MG PO DAILY May 18, 2014 1:05pm Start: 05-18-2014 End: 09-23-2023 take 1 capsule by mouth once daily [place] 450 MG capsule Discontinued 900 mg PO DAILY May 18, 2014 12:00am September 23, 2023 5:13pm Start: 05-18-2014 End: 09-23-2023 Start: 05-18-2014 End: 09-23-2023 take 900 mg by mouth once daily [place] Discontin ued 900 MG PO DAILY May 18, 2014 12:00am September 23, 2023 5:13pm Start: 05-18-2014 End: 09-23-2023 take 900 mg by mouth once daily [place] Discontin ued 900 MG PO DAILY May 17, 2014 11:00pm September 23, 2023 4:13pm Start: 05-18-2014 take 900 mg by mouth once marisabel y [place] Active 900 MG PO DAILY May 17, 2014 11:00pm Start: 05-18-2014 take 900 mg by mouth once marisabel y [place] Active 900 MG PO DAILY May 18, 2014 12:00am Botsxqg-Ityl-Mgujv-Oreg-Capr yl (7 sources) Start: 10-31-2022 take 1 capsule by mouth once daily Opmxpcf-Kxsp-Txptx-Oreg-Capryl Active 1 CAP PO DAILY October 31, 2022 9:40am Start: 10-31-2022 take 1 capsule by mouth once daily Jmtydeq-Bcmf-Jgzab-Oreg-Capryl Active 1 CAP PO DAILY October 31, 2022 10:40am Start: 06-06-2022 End: 10-31-2022 take 1 capsule by mouth once daily Ywxswuj-Fyjm-Qvgqc-Oreg-Capryl Discontin ued CAP PO DAILY June 06, 2022 12:00am October 31, 2022 9:41am Start: 06-06-2022 End: 10-31-2022 take 1 capsule by mouth once daily Bssphqo-Rzvq-Ndbof-Oreg-Capryl Discontin ued CAP PO DAILY June 06, 2022 1:00am October 31, 2022 10:41am Start: 06-06-2022 take 1 capsule by mouth once daily Zlzdzpr-Wpjt-Onbcm-Oreg-Capryl Active CA P PO DAILY June 06, 2022 12:00am Turmeric extract (19 sources) Start: 12-29-2020 take 400 mg by mouth once daily Turmeric Active 400 MG PO DAILY December 29, 2020 2:56pm Start: 12-29-2020 End: 01-04-2022 take 1 capsule by mouth once daily Turmeric 400 mg capsule Discontinued 400 mg PO DAILY December 29, 2020 12:00am January 04, 2022 11:35am Start: 12-29-2020 End: 01-04-2022 take 400 mg by mouth once daily Turmeric Discontinued 400 MG PO DAILY December 28, 2020 11:00pm January 04, 2022 10:35am Start: 12-29-2020 End: 01-04-2022 take 400 mg by mouth once daily Turmeric Discontinued 400 MG PO DAILY December 29, 2020 12:00am January 04, 2022 11:35am Pbdvyhvn-Lkjj-Dglox-Oreg-Cap ry (14 sources) Start: 10-31-2022 take 1 capsule by mouth once daily Iyxglsiq-Lmoz-Rfdht-Oreg-Capry Active 1 CAP PO DAILY October 31, 2022 10:40am Start: 10-31-2022 take 1 capsule by mouth once daily Qqrqlbwx-Eczo-Parxa-Oreg-Capry Active 1 CAP PO DAILY October 31, 2022 9:40am Start: 06-06-2022 End: 10-31-2022 take 1 capsule by mouth once daily Zgkvzaia-Cuyg-Buwei-Oreg-Capry Discontin ued CAP PO DAILY June 06, 2022 1:00am October 31, 2022 10:41am Start: 06-06-2022 End: 10-31-2022 take 1 capsule by mouth once daily Nhavpiew-Pozr-Mqwqi-Oreg-Capry Discontin ued CAP PO DAILY June 06, 2022 12:00am October 31, 2022 9:41am Vit C,R-Lr-Bjjkd-Lutein-Zeax an (Preservision Areds-2) 135-013-18-1 jc-zcxz-xo-mg capsule (19 sources) Start: 06-27-2020 take 1 tablet by mouth once daily at mealtime Vit C,L-Ep-Kkcxo-Lutein-Zeaxan (Preservision Areds-2) 854-081-37-1 ru-duim-ar-mg capsule Active 1 TABLET PO DAILY June 27, 2020 1:53pm administer with meals Start: 06-27-2020 End: 06-14-2024 take 1 capsule by mouth once daily at mealtime Vit C,W-Oj-Qadti-Lutein-Zeaxan (Preservision Areds-2) 687-993-15-1 gi-icds-aw-mg capsule Discontinued 1 {tbl} PO DAILY June 27, 2020 1:00am June 14, 2024 11:23am administer with meals Start: 06-27-2020 take 1 tablet by kelsey once daily at mealtime Vit C,J-Fp-Lpysa-Lutein-Zeaxan (Preservision Areds-2) 630-455-82-1 lw-oqtx-ho-mg capsule Active 1 TABLET PO DAILY June 27, 2020 12:00am administer with meals Start: 06-27-2020 take 1 tablet by kelsey th once daily at mealtime Vit C,N-Aj-Cpley-Lutein-Zeaxan (Preservision Areds-2) 676-454-91-1 xm-ovse-he-mg capsule Active 1 TABLET PO DAILY June 27, 2020 1:00am administer with meals Vit C,L-Pf-Hrolt-Lutein-Zeax an (Preservision Areds-2) 250-90-40-1 mg capsule (2 sources) Start: 06-14-2024 take 2 capsules by mouth twice daily at mealtime Vit C,O-Vn-Djxnm-Lutein-Zeaxan (Preservision Areds-2) 250-90-40-1 mg capsule Active 1 {tbl} PO TWICE A DAY June 14, 2024 11:23am administer with meals Vitamin B Complex (17 sources) Start: 10-02-2021 take 1 tablet by mouth once daily Vitamin B Complex Active 1 TABLET PO DAILY October 02, 2021 11:41am Start: 10-02-2021 End: 09-23-2023 take 1 tablet by mouth once daily Vitamin B Complex Discontinued 1 TABLET PO DAILY October 02, 2021 12:00am September 23, 2023 5:13pm Start: 10-02-2021 End: 09-23-2023 take 1 tablet by mouth once daily Vitamin B Complex Discontinued 1 TABLET PO DAILY October 01, 2021 11:00pm September 23, 2023 4:13pm Start: 10-02-2021 take 1 tablet by kelsey th once daily Vitamin B Complex Active 1 TABLET PO DAILY October 01, 2021 11:00pm Start: 10-02-2021 take 1 tablet by kelsey th once daily Vitamin B Complex Active 1 TABLET PO DAILY October 02, 2021 12:00am Completed/Discontinued Medications Medication Drug Class(es) Dates Sig (Normalized) Sig (Original) albuterol 0.83 mg/ml inhalation solution (20 sources) beta2-Adrenergic Agonist Start: 06-07-2024 End: 09-06-2024 take 2.5 mg by inhalation every four hours as needed for wheezing Albuterol Sulfate 2.5 mg /3 mL (0.083 %) solution for nebulization Discontinued 2.5 mg INHALATION Q4H as needed for shortness of breath or wheezing 75 July 05, 2024 1:22pm July 26, 2024 3:06pm Start: 06-07-2024 End: 09-06-2024 Start: 04-30-2023 take 2.5 mg by inhal ation every four hours Albuterol Sulfate Active 2.5 MG INHALATION Q4H April 30, 2023 7:02am Start: 04-30-2023 take 2.5 mg by inhal ation every four hours Albuterol Sulfate Active 2.5 MG INHALATION Q4H April 30, 2023 8:02am Start: 04-29-2023 End: 04-30-2023 take 2.5 mg by inhalation every four hours as needed Albuterol Sulfate 2.5 mg /3 mL (0.083 %) solution for nebulization Discontinued 2.5 mg INHALATION Q4H as needed April 29, 2023 12:00am April 30, 2023 8:02am Start: 04-29-2023 End: 04-30-2023 Start: 07-26-2020 End: 04-16-2021 take 2.5 mg by inhalation every four hours as needed for wheezing Albuterol Sulfate 2.5 mg /3 mL (0.083 %) solution for nebulization Discontinued 2.5 mg INHALATION Q4H as needed for Wheezing July 26, 2020 1:00am April 16, 2021 9:20am Start: 07-26-2020 End: 04-16-2021 Start: 06-13-2020 Albuterol Sulf ate (2.5 MG/3ML) 0.083% Inhalation Nebulization Solution 0.083% - 3ML DOSING UNITS INHALATION EVERY 6 HOURS ,X30 DAY(S) NEED Quantity: 1 Refills: 3 Ordered: 13-Jun-2020 Marcos Tolentino MD Start : 13-Jun-2020 Active Albuterol Sulfate 2.5 mg /3 mL (0.083 %) solution for nebulization (2 sources) Start: 04-30-2023 End: 06-07-2024 take 2.5 mg by inhalation every four hours as needed for wheezing Albuterol Sulfate 2.5 mg /3 mL (0.083 %) solution for nebulization Discontinued 2.5 mg INHALATION Q4H as needed for shortness of breath or wheezing April 30, 2023 8:02am June 07, 2024 12:36pm amLODIPine 5 mg oral tablet (20 sources) Dihydropyridine Calcium Channel Perez Start: 05-18-2014 End: 07-26-2020 take 1 tablet by mouth once daily Amlodipine 5 MG tablet Discontinued 5 mg PO DAILY May 18, 2014 12:00am July 26, 2020 3:54pm amoxicillin 500 mg oral capsule (15 sources) Penicillin-class Antibacterial Start: 09-23-2023 End: 09-29-2023 take 1 capsule by mouth every eight hours Amoxicillin 500 mg capsule Discontinued 500 mg PO Q8H September 23, 2023 1:00am September 29, 2023 2:02pm TAKE 1 CAPSULE BY MOUTH EVERY 8 HOURS UNTIL GONE. START DATE: 09/15/2023 END DATE: 09/25/2023 amoxicillin 875 mg / clavulanate 125 mg oral tablet (8 sources) Penicillin-class Antibacterial Start: 07-12-2024 End: 07-26-2024 Amoxicillin-Pot Clavulanate 875-125 mg tablet Discontinued 1 {tbl} PO TWICE A DAY July 12, 2024 1:00am July 26, 2024 2:32pm Start: 07-12-2024 End: 07-26-2024 apixaban 5 mg oral tablet (20 sources) Factor Xa Inhibitor Start: 07-26-2020 End: 10-21-2024 take 1 tablet by mouth twice daily Apixaban (Eliquis) 5 mg tablet Discontinued 5 mg PO TWICE A DAY June 11, 2024 10:32am October 21, 2024 9:27am atorvastatin 20 mg oral tablet (20 sources) HMG-CoA Reductase Inhibitor Start: 07-24-2019 End: 10-21-2024 take 1 tablet by mouth once daily Atorvastatin (Lipitor) 20 mg tablet Discontinued 20 mg PO DAILY December 02, 2022 4:04pm December 01, 2023 2:36pm Start: 04-08-2018 take 1 tablet by kelsey th once daily atorvastatin (LIPITOR) 40 MG tablet Take 40 mg by mouth daily . 0 04/08/2018 Active cephalexin 500 mg oral capsule (8 sources) Cephalosporin Antibacterial Start: 08-18-2024 End: 09-11-2024 take 1 capsule by mouth every six hours Cephalexin 500 mg capsule Discontinued 500 mg PO EVERY 6 HOURS 40 August 18, 2024 1:00am September 11, 2024 2:01pm chondroitin sulfates 400 mg / glucosamine hydrochloride 500 mg / methylsulfonylmethane 83 mg oral tablet (20 sources) Start: 05-18-2014 End: 06-29-2020 take 1 tablet by mouth once daily Glucosamine Wts-Ftr-Stgjbqjp tn 1 EACH tablet Discontinued 1 NMA PO DAILY May 18, 2014 12:00am June 29, 2020 11:56am Start: 05-18-2014 End: 06-29-2020 Start: 05-18-2014 End: 06-29-2020 Glucosamine Uft-Mkn-Iuzfchhh tn Discontinued 1 EACH PO DAILY May 18, 2014 12:00am June 29, 2020 11:56am ciprofloxacin 500 mg oral tablet (20 sources) Quinolone Antimicrobial Start: 05-27-2014 End: 06-29-2020 take 1 tablet by mouth twice daily Ciprofloxacin Hcl 500 MG tablet Discontinued 500 mg PO TWICE A DAY May 27, 2014 1:00am June 29, 2020 11:56am clopidogrel 75 mg oral tablet (20 sources) [id number] Platelet Inhibitor Start: 08-18-2020 End: 10-31-2022 take 1 tablet by mouth once daily Clopidogrel 75 mg tablet Discontinued 75 mg PO DAILY August 27, 2021 5:22pm January 24, 2022 12:31pm clotrimazole 10 mg/ml topical cream (20 sources) Azole Antifungal Start: 01-27-2022 End: 06-03-2022 Clotrimazole (Antifungal (Clotrimazole)) 1 % cream Discontinued 1 NMA TOPICAL TWICE A DAY 45 January 27, 2022 12:00am June 03, 2022 2:12pm use BID for 2-4 weeks to affected area ubidecarenone 100 mg oral capsule (20 sources) Start: 04-29-2023 End: 11-10-2024 Coenzyme Q10 (Coq-10) 100 mg capsule Discontinued 100 mg PO DAILY April 29, 2023 12:00am November 10, 2024 10:07am Start: 06-27-2020 End: 10-02-2021 Coenzyme Q10 (Ultra Coq10) 7 5 mg capsule Discontinued 0 PO DAILY June 27, 2020 1:00am October 02, 2021 11:42am 300 mg PO daily; Start: 07-08-2017 take 1 capsule by [facility] once daily Co Q 10 100 MG Oral Capsule TAKE 1 CAPSULE Daily Quantity: 0 Refills: 0 Ordered: 24-Jul-2019 DO Start : 24-Jul-2019 Active dexamethasone 6 mg oral tablet (8 sources) Corticosteroid Start: 07-12-2024 End: 07-26-2024 take 1 tablet by mouth once daily Dexamethasone 6 mg tablet Discontinued 6 mg PO DAILY July 12, 2024 1:00am July 26, 2024 2:33pm docusate sodium 50 mg / sennosides, retirement 8.6 mg oral tablet (8 sources) Start: 08-03-2024 End: 11-10-2024 Sennosides-Docusate Sodium (Stimulant Laxative Plus) 8.6-50 mg Tablet Discontinued 2 {tbl} PO TWICE A DAY as needed for CONSTIPATION 0 August 03, 2024 1:00am November 10, 2024 10:09am OTC Start: 08-03-2024 End: 11-10-2024 doxazosin 4 mg oral tablet (20 sources) alpha-Adrenergic Perez Start: 05-18-2014 End: 06-29-2020 take 1 tablet by mouth at bedtime Doxazosin 4 MG tablet Discontinued 4 mg PO AT BEDTIME May 18, 2014 12:00am June 29, 2020 11:56am Start: 05-18-2014 End: 06-29-2020 doxycycline hyclate 100 mg oral capsule (20 sources) Tetracycline-class Drug Start: 04-07-2024 End: 04-15-2024 take 1 capsule by mouth twice daily Doxycycline Hyclate 100 mg capsule Discontinued 100 mg PO TWICE A DAY April 07, 2024 12:00am April 15, 2024 1:12pm Start: 10-21-2022 End: 10-28-2022 take 1 capsule by mouth twice daily Doxycycline Hyclate 100 mg capsule Discontinued 100 mg PO TWICE A DAY 14 October 21, 2022 4:11pm October 27, 2022 12:00am October 28, 2022 12:04am Start: 07-25-2022 End: 08-28-2022 take 1 capsule by mouth twice daily Doxycycline Monohydrate 100 mg capsule Discontinued 100 mg PO TWICE A DAY July 25, 2022 1:00am August 28, 2022 11:31am fluconazole 150 mg oral tablet (20 sources) Azole Antifungal Start: 01-25-2022 End: 06-03-2022 Fluconazole (Diflucan) 150 mg tablet Discontinued 150 mg PO Every 3 Days January 25, 2022 12:00am June 03, 2022 2:12pm may repeat second dose 72 hrs after first dose if symptoms persist furosemide 40 mg oral tablet (20 sources) Loop Diuretic Start: 09-02-2024 End: 09-16-2024 Furosemide (Lasix) 40 mg tablet Discontinued 60 mg PO TWICE A DAY September 02, 2024 3:33pm September 16, 2024 5:08pm Start: 08-03-2024 End: 08-26-2024 Furosemide (Lasix) 40 mg tab let Discontinued 60 mg PO TWICE A DAY August 03, 2024 10:20am August 26, 2024 5:28pm Start: 05-14-2024 End: 06-14-2024 Furosemide (Lasix) 40 mg tab let Discontinued 40 mg PO .COMPLEX 75 May 18, 2024 1:25pm June 14, 2024 11:49am 40 mg orally; 60mg in the AM and 40mg in the PM Start: 06-06-2022 End: 12-02-2024 take 1 tablet by mouth twice daily Furosemide (Lasix) 40 mg tablet Discontinued 40 mg PO TWICE A DAY September 16, 2024 5:08pm December 02, 2024 11:37am Start: 06-06-2022 End: 01-02-2024 take 1 tablet by mouth once daily Furosemide 40 mg tablet Discontinued 40 mg PO DAILY November 05, 2023 4:23pm January 02, 2024 1:14pm Start: 10-02-2021 End: 06-03-2022 take 1 tablet by mouth once daily Furosemide (Lasix) 40 mg tablet Discontinued 40 mg PO DAILY October 02, 2021 4:56pm June 03, 2022 2:13pm Start: 12-01-2020 End: 01-15-2021 Furosemide (Lasix) 40 mg tab let Discontinued 0 PO TWICE A DAY December 29, 2020 2:53pm December 29, 2020 3:31pm 40 mg QAM, 20 mg QPM PO twice a day; Start: 07-26-2020 End: 06-03-2022 take 1 tablet by mouth twice daily Furosemide (Lasix) 40 mg tablet Discontinued 40 mg PO TWICE A DAY 180 August 27, 2021 5:22pm October 02, 2021 4:58pm Start: 06-29-2020 End: 07-26-2020 take 1 tablet by mouth once daily Furosemide 20 mg tablet Discontinued 20 mg PO DAILY June 29, 2020 1:00am July 26, 2020 3:55pm Start: 06-29-2020 End: 07-26-2020 take 1 tablet by mouth twice daily Furosemide 20 mg tablet Discontinued 20 mg PO TWICE A DAY July 26, 2020 3:55pm July 26, 2020 4:27pm hydroCHLOROthiazide 12.5 mg / lisinopril 10 mg oral tablet (20 sources) Thiazide Diuretic, Angiotensin Converting Enzyme Inhibitor Start: 04-17-2018 take 10-12.5 mg by mouth once lisinopril-hydrochlorothiazide (PRINZIDE,ZESTORETIC) 10-12.5 mg per tablet Take 1 tablet by mouth daily. 3 04/17/2018 Active Start: 05-18-2014 End: 06-29-2020 Lisinopril-Hydrochlorothiazi de 1 TABLET tablet Discontinued 1 {tbl} PO DAILY May 18, 2014 12:00am June 29, 2020 11:57am Start: 05-18-2014 End: 06-29-2020 Start: 05-18-2014 End: 06-29-2020 take 1 tablet by mouth once daily Lisinopril-Hydrochlorothiazide Discontin ued 1 TABLET PO DAILY May 18, 2014 12:00am June 29, 2020 11:57am lisinopril 2.5 mg oral tablet (20 sources) Angiotensin Converting Enzyme Inhibitor Start: 12-29-2020 End: 06-05-2021 take 1 tablet by mouth once daily Lisinopril 2.5 mg tablet Discontinued 2.5 mg PO DAILY January 15, 2021 10:21am January 29, 2021 12:17pm Start: 12-29-2020 End: 06-05-2021 take 1 tablet by mouth twice daily Lisinopril 2.5 mg tablet Discontinued 2.5 mg PO TWICE A DAY February 22, 2021 4:42pm June 05, 2021 12:26pm Start: 11-23-2020 End: 05-07-2021 take 5 mg by mouth once daily Lisinopril 10 mg tablet Discontinued 5 mg PO DAILY November 23, 2020 11:34am November 24, 2020 4:10pm Start: 06-29-2020 End: 11-23-2020 take 1 tablet by mouth once daily Lisinopril 10 mg tablet Discontinued 10 mg PO DAILY June 29, 2020 1:00am November 23, 2020 11:39am Start: 06-29-2020 End: 11-24-2020 24 hr metoprolol succinate 25 mg extended release oral tablet (20 sources) beta-Adrenergic Perez Start: 02-22-2021 End: 08-26-2024 take 1 tablet by mouth once daily Metoprolol Succinate 25 mg tablet extended release 24 hr Discontinued 25 mg PO DAILY February 20, 2024 3:00pm August 26, 2024 5:36pm Start: 07-27-2020 take 1 tablet by kelsey th every twenty-four hours Metoprolol Succinate ER 25 MG Oral Tablet Extended Release 24 Hour Quantity: 0 Refills: 0 Ordered: 27-Jul-2020 DO Start : 27-Jul-2020 Active Start: 07-26-2020 End: 11-23-2020 take 1 tablet by mouth once daily Metoprolol Succinate (Toprol Xl) 50 mg tablet extended release 24 hr Discontinued 50 mg PO DAILY July 26, 2020 1:00am November 23, 2020 11:39am Start: 07-26-2020 End: 02-22-2021 take 2 tablets by mouth once daily Metoprolol Succinate (Toprol Xl) 50 mg tablet extended release 24 hr Discontinued 25 mg PO DAILY November 23, 2020 11:34am February 22, 2021 4:42pm Multivitamin 1 TABLET tablet (2 sources) Start: 05-18-2014 End: 06-29-2020 Multivitamin 1 TABLET tablet Discontinued 1 {tbl} PO DAILY May 18, 2014 12:00am June 29, 2020 11:56am Multivitamin preparation (17 sources) Start: 05-18-2014 End: 06-29-2020 take 1 tablet by mouth once daily Multivitamin Discontinued 1 TABLET PO DAILY May 18, 2014 1:05pm June 29, 2020 11:56am Start: 05-18-2014 End: 06-29-2020 take 1 tablet by mouth once daily Multivitamin Discontinued 1 TABLET PO DAILY May 17, 2014 11:00pm June 29, 2020 10:56am Start: 05-18-2014 End: 06-29-2020 take 1 tablet by mouth once daily Multivitamin Discontinued 1 TABLET PO DAILY May 18, 2014 12:00am June 29, 2020 11:56am nitrofurantoin, macrocrystals 100 mg oral capsule (14 sources) Nitrofuran Antibacterial Start: 10-04-2023 End: 10-14-2023 take 1 capsule by mouth twice daily at mealtime Nitrofurantoin Macrocrystal 100 mg capsule Discontinued 100 mg PO TWICE A DAY 09 05October 04, 2023 12:00am October 13, 2023 12:00am October 14, 2023 12:05am must administer with a meal/food nitrofurantoin, macrocrystals 25 mg / nitrofurantoin, monohydrate 75 mg oral capsule (20 sources) Nitrofuran Antibacterial Start: 10-07-2024 End: 11-10-2024 take 1 capsule by mouth twice daily at mealtime Nitrofurantoin Monohyd/M-Cryst (Macrobid) 100 mg capsule Discontinued 100 mg PO TWICE A DAY October 18, 2024 9:40am November 10, 2024 10:08am must administer with a meal/food Start: 01-27-2022 End: 02-01-2022 take 1 capsule by mouth every twelve hours at mealtime Nitrofurantoin Monohyd/M-Cryst (Macrobid) 100 mg capsule Discontinued 100 mg PO Q12H 10 5 January 27, 2022 12:00am January 31, 2022 12:00am February 01, 2022 12:03am must administer with a meal/food nystatin 100 unt/mg topical ointment (2 sources) Polyene Antifungal Start: 10-20-2020 Nystatin 10 0000 UNIT/GM External Ointment APPLY 2-3 TIMES DAILY TO AFFECTED AREA(S). Quantity: 1 Refills: 3 Ordered: 16-Jan-2021 Maranda ONTIVEROS, MPH, [employer] Start : 20-Oct-2020 Active [place]-3 Fatty Acids-Fish Oil (17 sources) Start: 05-18-2014 End: 06-29-2020 [place]-3 Fatty Acids-Fish Oil Discontinued 1 EACH PO DAILY May 18, 2014 1:05pm June 29, 2020 11:56am Start: 05-18-2014 End: 06-29-2020 [place]-3 Fatty Acids-Fish Oil Discontinued 1 EACH PO DAILY May 17, 2014 11:00pm June 29, 2020 10:56am Start: 05-18-2014 End: 06-29-2020 [place]-3 Fatty Acids-Fish Oil Discontinued 1 EACH PO DAILY May 18, 2014 12:00am June 29, 2020 11:56am [place]-3 Fatty Acids-Fish Oil 1 EACH capsule,delayed release(DR/EC) (2 sources) Start: 05-18-2014 End: 06-29-2020 [place]-3 Fatty Acids-Fish Oil 1 EACH capsule,delayed release(DR/EC) Discontinued 1 NMA PO DAILY May 18, 2014 12:00am June 29, 2020 11:56am predniSONE 10 mg oral tablet (18 sources) Start: 07-25-2022 End: 08-28-2022 take 1 tablet by mouth twice daily Prednisone 10 mg tablet Discontinued 10 mg PO TWICE A DAY July 25, 2022 1:00am August 28, 2022 11:32am spironolactone 25 mg oral tablet (20 sources) Aldosterone Antagonist Start: 02-16-2021 End: 08-26-2024 take 1 tablet by mouth once daily Spironolactone 25 mg tablet Discontinued 25 mg PO DAILY May 26, 2024 3:43pm August 26, 2024 5:36pm Start: 11-21-2020 End: 12-01-2020 take 1 tablet by mouth once daily Spironolactone 25 mg tablet Discontinued 25 mg PO DAILY November 21, 2020 12:00am December 01, 2020 4:11pm On Hold: low bp 11/23/2020; Start: 06-27-2020 End: 11-21-2020 take 1 tablet by mouth once daily Spironolactone 50 mg tablet Discontinued 50 mg PO DAILY August 14, 2020 3:12pm November 21, 2020 10:22am sulfamethoxazole 800 mg / trimethoprim 160 mg oral tablet (20 sources) Dihydrofolate Reductase Inhibitor Antibacterial, Sulfonamide Antimicrobial Start: 09-11-2024 End: 09-18-2024 Sulfamethoxazole-Trimethopri m (Bactrim Ds) 800-160 mg tablet Discontinued 1 {tbl} PO TWICE A DAY 14 September 11, 2024 1:00am September 17, 2024 1:00am September 18, 2024 1:23am Start: 09-11-2024 End: 09-18-2024 Start: 10-20-2023 End: 01-02-2024 Sulfamethoxazole-Trimethopri m (Bactrim) 400-80 mg tablet Discontinued 1 {tbl} PO TWICE A DAY October 20, 2023 12:00am January 02, 2024 1:10pm Start: 10-20-2023 End: 01-02-2024 tamsulosin hydrochloride 0.4 mg oral capsule (20 sources) alpha-Adrenergic Perez Start: 08-26-2024 End: 11-10-2024 take 1 capsule by mouth at bedtime Tamsulosin 0.4 mg capsule Discontinued 0.4 mg PO AT BEDTIME August 26, 2024 1:00am November 10, 2024 10:09am Start: 06-03-2022 End: 07-26-2024 take 1 capsule by mouth once daily Tamsulosin 0.4 mg capsule Discontinued 0.4 mg PO DAILY June 03, 2022 1:00am July 26, 2024 2:34pm Turmeric Root Extract 500 mg capsule (2 sources) Start: 08-26-2024 End: 11-10-2024 take 1 capsule by mouth once daily Turmeric Root Extract 500 mg capsule Discontinued 500 mg PO daily August 26, 2024 1:00am November 10, 2024 10:10am Spgiwzkk-Cfhj-Odxzz-O reg-Capry 100 mg-150 mg- 50 mg-150 mg capsule (4 sources) Start: 10-31-2022 End: 08-03-2024 take 1 capsule by mouth once daily Bgbspiwl-Rbfd-Xoelo-Oreg -Capry 100 mg-150 mg- 50 mg-150 mg capsule Discontinued 1 NMA PO DAILY October 31, 2022 10:40am August 03, 2024 10:19am Start: 06-06-2022 End: 10-31-2022 take 1 capsule by mouth once daily Szratebl-Pglx-Jpunt-Oreg-Capry 100 mg-15 0 mg- 50 mg-150 mg capsule Discontinued NMA PO DAILY June 06, 2022 1:00am October 31, 2022 10:41am Vitamin B Complex tablet (2 sources) Start: 10-02-2021 End: 09-23-2023 Vitamin B Complex tablet Discontinued 1 {tbl} PO DAILY October 02, 2021 12:00am September 23, 2023 5:13pm vitamins A,C,K-xfnx-clbkud (Ocuvite Preservision) (2 sources) Start: 12-17-2024 End: 12-20-2024 vitamins A,C,V-cuft-vxugty (Ocuvite Preservision) Discontinued PO December 17, 2024 12:00am December 20, 2024 11:59am Start: 12-17-2024 vitamins A,C,E -zinc-copper (Ocuvite Preservision) Active PO December 17, 2024 12:00am (20 sources) Start: 08-26-2024 End: 11-10-2024 Start: 08-26-2024 Start: 06-14-2024 Start: 04-30-2023 End: 06-07-2024 Start: 10-31-2022 End: 08-03-2024 Start: 06-06-2022 End: 10-31-2022 Start: 10-02-2021 End: 09-23-2023 Start: 12-29-2020 End: 01-04-2022 Start: 06-27-2020 End: 06-14-2024 Start: 05-18-2014 End: 06-29-2020 Start: 05-18-2014 End: 06-29-2020 Problems Active Problems Problem Classification Problem Date Documented Da te Episodic/Chronic Acute cerebrovascular disease (2 sources) Cerebrovascular accident; Translations: [Cerebral infarction, unspecified] Onset: 5 12-20-2024 Chronic Allergic reactions (3 sources) Atopic dermatitis; Translations: [Other atopic dermatitis and related conditions] Chronic Cardiac dysrhythmias (20 sources) Atrial fibrillation; Translations: [Atrial fibrillation] Onset: Chronic Chronic obstructive pulmonary disease and bronchiectasis (20 sources) Chronic obstructive lung disease; Translations: [Chronic obstructive pulmonary disease, unspecified] Onset: Chronic Conduction disorders (2 sources) Left bundle branch block; Translations: [Other left bundle branch block] Chronic Congestive heart failure; nonhypertensive (20 sources) Chronic diastolic heart failure; Translations: [Chronic diastolic heart failure] Onset: 5 Chronic Coronary atherosclerosis and other heart disease (20 sources) Calcification of coronary artery; Translations: [Coronary artery stenosis] Onset: 8 04-27-2018 Chronic Disorders of lipid metabolism (20 sources) Hyperlipidemia; Translations: [Hyperlipidemia, unspecified] Onset: 4 Chronic Diverticulosis and diverticulitis (3 sources) Diverticular disease; Translations: [Diverticulosis of colon (without mention of hemorrhage)] Chronic E Codes: Fall (2 sources) Unspecified fall, initial encounter; Translations: [Unspecified fall, initial encounter] Onset: 4 Episodic Essential hypertension (20 sources) Hypertensive disorder; Translations: [Unspecified essential hypertension] Onset: 5 Chronic Comment on above: controlled on meds Fluid and electrolyte disorders (20 sources) Hypokalemia; Translations: [Hypopotassemia] Onset: 5 10-15-2021 Episodic Hyperplasia of prostate (3 sources) Benign prostatic hyperplasia; Translations: [Hypertrophy (benign) of prostate without urinary obstruction and other lower urinary tract symptom (LUTS)] Chronic Mycoses (20 sources) Candidal intertrigo; Translations: [Candidiasis of skin and nails] Episodic Osteoarthritis (20 sources) Osteoarthritis of left knee joint; Translations: [Unilateral primary osteoarthritis, left knee] Onset: 5 Chronic Other aftercare (2 sources) Post-discharge follow-up; Translations: [Other follow-up examination] Episodic Other aftercare (20 sources) Long-term current use of anticoagulant; Translations: [senior care (current) use of anticoagulants] 11-23-2020 Episodic Other aftercare (6 sources) Long-term current use of diuretic; Translations: [Encounter for therapeutic drug level monitoring] 10-11-2024 Episodic Other and unspecified benign neoplasm (20 sources) History of polyp of colon; Translations: [Personal history of colonic polyps] 01-07-2022 Episodic Other and unspecified benign neoplasm (6 sources) Personal history of colonic polyps; Translations: [Personal history of colonic polyps] Episodic Other circulatory disease (1 source) H/O: atrial fibrillation; Translations: [Personal history of other diseases of the circulatory system] 12-20-2024 Episodic Other circulatory disease (1 source) Personal history of other diseases of the circulatory system; Translations: [Personal history of other diseases of the circulatory system] Onset: Episodic Other connective tissue disease (19 sources) Thigh pain; Translations: [Pain in left thigh] 06-03-2022 Episodic Other connective tissue disease (19 sources) Swelling of left lower limb; Translations: [Other specified soft tissue disorders] 06-03-2022 Episodic Other connective tissue disease (1 source) Other specified soft tissue disorders; Translations: [Swelling of limb] Episodic Other connective tissue disease (1 source) Pain in left thigh; Translations: [Pain in limb] Episodic Other connective tissue disease (18 sources) Bursitis of olecranon of right elbow; Translations: [Olecranon bursitis, right elbow] 08-22-2022 Episodic Other connective tissue disease (14 sources) Pain in right lower limb; Translations: [Pain in right leg] 08-18-2024 Episodic Other connective tissue disease (1 source) Recurrent falls ; Translations: [Repeated falls] 12-20-2024 Episodic Other connective tissue disease (1 source) Weakness of face muscles; Translations: [Facial weakness] 12-20-2024 Episodic Other connective tissue disease (1 source) Repeated falls; Translations: [Repeated falls] Onset: Episodic Other connective tissue disease (1 source) Facial weakness; Translations: [Facial weakness] Onset: 5 Episodic Other diseases of kidney and ureters (2 sources) Cyst of kidney; Translations: [Cystic kidney disease, unspecified] Episodic Other diseases of kidney and ureters (8 sources) Acute renal insufficiency; Translations: [Disorder of kidney and ureter, unspecified] 05-27-2024 Episodic Other diseases of veins and lymphatics (2 sources) Disorder of vein of lower extremity; Translations: [Varicose veins of lower extremities with inflammation] Episodic Other endocrine disorders (1 source) Disorder of pituitary gland, unspecified; 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, unspecified] Onset: 5 Chronic Other gastrointestinal disorders (2 sources) Swollen abdomen; Translations: [Flatulence, eructation, and gas pain] Episodic Other inflammatory condition of skin (2 sources) Pruritic rash; Translations: [Prurigo] Episodic Other injuries and conditions due to external causes (3 sources) Spider bite wound; Translations: [Toxic effect of venom] Episodic Other injuries and conditions due to external causes (2 sources) Unspecified injury of head, initial encounter; Translations: [Unspecified injury of head, initial encounter] Onset: 4 Episodic Other liver diseases (3 sources) Liver cyst; Translations: [Other specified disorders of liver] Chronic Other lower respiratory disease (20 sources) Dyspnea; Translations: [Shortness of breath] 09-23-2023 Episodic Other lower respiratory disease (20 sources) Dyspnea on exertion; Translations: [Dyspnea, unspecified] 10-02-2021 Episodic Other lower respiratory disease (20 sources) Hypoxia; Translations: [Hypoxemia] 05-22-2021 Episodic Other lower respiratory disease (11 sources) Dyspnea, unspecified; Translations: [Other respiratory abnormalities] Onset: 5 Episodic Other lower respiratory disease (9 sources) Other forms of dyspnea; Translations: [Other respiratory abnormalities] Episodic Other lower respiratory disease (3 sources) Wheezing; Translations: [Wheezing] Onset: 4 Episodic Other lower respiratory disease (2 sources) Shortness of breath; Translations: [Shortness of breath] Onset: 5 Episodic Other nervous system disorders (14 sources) Disorder of brain; 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, unspecified] 07-30-2024 Chronic Other nervous system disorders (1 source) Other chronic pain; Translations: [Other chronic pain] Onset: 5 Chronic Other nervous system disorders (1 source) Encephalopathy, unspecified; 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, unspecified] Onset: 5 Chronic Other nervous system disorders (14 sources) Ataxia; Translations: [Ataxia, unspecified] 07-30-2024 Episodic Other nervous system disorders (1 source) Slurred speech; Translations: [Slurred speech] 12-20-2024 Episodic Other nervous system disorders (1 source) Slurred speech; Translations: [Slurred speech] Onset: 5 Episodic Other nutritional; endocrine; and metabolic disorders (1 source) Body mass index 40+ - severely obese; Translations: [Body mass index (BMI) of 40.0 to 44.9 in adult] Chronic Other nutritional; endocrine; and metabolic disorders (3 sources) Obesity; Translations: [Obesity, unspecified] Chronic Other nutritional; endocrine; and metabolic disorders (20 sources) Body mass index 30+ - obesity; Translations: [Body Mass Index 36.0-36.9, adult] 05-03-2021 Chronic Other nutritional; endocrine; and metabolic disorders (5 sources) Obesity, unspecified; Translations: [Obesity, unspecified] Chronic Other nutritional; endocrine; and metabolic disorders (15 sources) Hyperbilirubinemia; Translations: [Other disorders of bilirubin metabolism] 09-23-2023 Chronic Other nutritional; endocrine; and metabolic disorders (7 sources) Other disorders of bilirubin metabolism; Translations: [Jaundice, unspecified, not of ] 09-25-2023 Chronic Other screening for suspected conditions (not mental disorders or infectious disease) (9 sources) Thallium stress test abnormal; Translations: [Lung function restrictive] Resolved: Episodic Other skin disorders (3 sources) Eruption; Translations: [Rash and other nonspecific skin eruption] Episodic Other upper respiratory disease (20 sources) Bleeding from nose; Translations: [Epistaxis] 05-22-2021 Episodic Other upper respiratory disease (20 sources) Anterior epistaxis; Translations: [Epistaxis] 08-02-2020 Episodic Pulmonary heart disease (2 sources) Pulmonary hypertension; Translations: [Other chronic pulmonary heart diseases] Chronic Residual codes; unclassified (20 sources) Obstructive sleep apnea syndrome; Translations: [Obstructive sleep apnea (adult) (pediatric)] 10-12-2020 Chronic Comment on above: AHI 5.5 - not on the rapy Residual codes; unclassified (20 sources) Hypersomnia; Translations: [Hypersomnia, unspecified] 05-22-2021 Chronic Residual codes; unclassified (8 sources) Obstructive sleep apnea (adult) (pediatric); Translations: [Obstructive sleep apnea (adult)(pediatric)] Chronic Residual codes; unclassified (20 sources) Edema of lower extremity; Translations: [Edema] 10-21-2022 Episodic Residual codes; unclassified (2 sources) Body fluid retention; Translations: [Other fluid overload] Episodic Residual codes; unclassified (20 sources) 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 cancer of colon; Translations: [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 malignant neoplasm of digestive organs] 01-07-2022 Episodic Residual codes; unclassified (6 sources) 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 malignant neoplasm of digestive organs; Translations: [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 malignant neoplasm of gastrointestinal tract] Episodic Residual codes; unclassified (20 sources) Bilateral lower limb edema; Translations: [Localized edema] 04-05-2024 Episodic Skin and subcutaneous tissue infections (20 sources) Cellulitis of lower limb; Translations: [Cellulitis and abscess of leg, except foot] 10-31-2022 Episodic Spondylosis; intervertebral disc disorders; other back problems (3 sources) Degeneration of lumbosacral intervertebral disc; Translations: [Degeneration of lumbar or lumbosacral intervertebral disc] Chronic Sprains and strains (18 sources) Strain of muscle(s) and tendon(s) of the rotator cuff of right shoulder, initial encounter; Translations: [Strain of tendon of right rotator cuff] 08-22-2022 Episodic Superficial injury; contusion (18 sources) Infected insect bite of hand; Translations: [Insect bite (nonvenomous) of unspecified hand, initial encounter] 07-25-2022 Episodic Syncope (20 sources) Syncope and collapse; Translations: [Syncope and collapse] 05-22-2021 Episodic Urinary tract infections (20 sources) Urinary tract infectious disease; Translations: [Urinary tract infection, site not specified] Onset: Episodic Past or Other Problems Problem Classification Problem Date Documented Da te Episodic/Chronic Abdominal pain (9 sources) Abdominal pain; Translations: [Unspecified abdominal pain] Onset: 06-08-2024 05-27-2024 Episodic Coronary atherosclerosis and other heart disease (20 sources) Presence of coronary angioplasty implant and graft; Translations: [Percutaneous transluminal coronary angioplasty status] Onset: 08-17-2020 Episodic Diseases of mouth; excluding dental (4 sources) Other lesions of oral mucosa; Translations: [Other lesions of oral mucosa] Onset: 12-22-2023 Episodic Genitourinary symptoms and ill-defined conditions (20 sources) Blood in urine; Translations: [Hematuria, unspecified] Onset: 09-11-2024 Episodic Immunizations and screening for infectious disease (20 sources) Patient encounter status; Translations: [Other specified vaccination] Onset: 06-25-2024 05-08-2023 Episodic Malaise and fatigue (20 sources) Fatigue; Translations: [Other fatigue] Onset: 08-16-2024 Episodic Other aftercare (5 sources) 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; Translations: [Long-term (current) use of anticoagulants] Onset: 08-09-2024 Episodic Other connective tissue disease (1 source) Pain in right leg; Translations: [Pain in right leg] Onset: 08-18-2024 Episodic Other diseases of kidney and ureters (1 source) Cyst of kidney; Translations: [Renal cyst, right] Other non-traumatic joint disorders (20 sources) Pain in left knee; Translations: [Left knee pain] Onset: 08-13-2024 11-20-2022 Episodic Residual codes; unclassified (1 source) Edema, unspecified; Translations: [Edema, unspecified] Onset: 09-03-2024 Episodic Residual codes; unclassified (1 source) Localized edema; Translations: [Localized edema] Onset: 08-18-2024 Episodic Unclassified (2 sources) Patient encounter status; Translations: [Encounter for immunization] NEGATED: Highlighted row has not occurred!Residual codes; unclassified (4 sources) Disease Episodic Results Test Name Value Interpretation Reference Range Facility CBC W/Diff, Automatedon 06- Absolute Lymph 0.92 X10 3/uL Normal 0.83-4.51 [facility] Comment on above: Performed By: #### L 501.2300, L500.4050, L500.4100, L501.5200, L100.0100 ####[facility] [address] [place], [address] Absolute Neut 6.2 X10 3/uL Normal 2.0-7.7 [facility] Comment on above: Performed By: #### L 501.2300, L500.4050, L500.4100, L501.5200, L100.0100 ####[facility] [address] [place], [address] Basophils/100 WBC (Bld) 1.1 % High 0-1 [facility] Comment on above: Performed By: #### L 501.2300, L500.4050, L500.4100, L501.5200, L100.0100 ####[facility] [address] [place], [address] Eosinophils/100 WBC (Bld) 1.9 % Normal 0-5 [facility] Comment on above: Performed By: #### L 501.2300, L500.4050, L500.4100, L501.5200, L100.0100 ####[facility] [address] [place], [address] Erythrocyte distribution width (RBC) [Ratio] 12.9 % Normal 11.6-14.6 [facility] Comment on above: Performed By: #### L 501.2300, L500.4050, L500.4100, L501.5200, L100.0100 ####[facility] [address] [place], [address] Hematocrit (Bld) [Volume fraction] 39.0 % Low 40-54 [facility] Comment on above: Performed By: #### L 501.2300, L500.4050, L500.4100, L501.5200, L100.0100 ####[facility] [address] [place], [address] Hemoglobin (Bld) [Mass/Vol] 13.6 g/dL Normal 13.0-16.5 [facility] Comment on above: Performed By: #### L 501.2300, L500.4050, L500.4100, L501.5200, L100.0100 ####[facility] [address] [place], [address] IG% 0.200 Normal 0.0-0.9 [facility] Comment on above: Result Comment: IG% - Immature Granulocytes (promyelocytes, myelocytes andmetamyelocytes) > 1% indicates that a LEFT SHIFT is Present. Performed By: #### L 501.2300, L500.4050, L500.4100, L501.5200, L100.0100 ####[facility] [address] [place], [address] Lymphocytes/100 WBC (Bld) 11.4 % Low 19-41 [facility] Comment on above: Performed By: #### L 501.2300, L500.4050, L500.4100, L501.5200, L100.0100 ####[facility] [address] [place], [address] MCH (RBC) [Entitic mass] 31.1 pg Normal 27.0-32.0 [facility] Comment on above: Performed By: #### L 501.2300, L500.4050, L500.4100, L501.5200, L100.0100 ####[facility] [address] [place], [address] MCHC (RBC) [Mass/Vol] 34.9 g/dL Normal 32-36 [facility] Comment on above: Performed By: #### L 501.2300, L500.4050, L500.4100, L501.5200, L100.0100 ####[facility] [address] [place], [address] MCV (RBC) [Entitic vol] 89.2 fL Normal 80-94 [facility] Comment on above: Performed By: #### L 501.2300, L500.4050, L500.4100, L501.5200, L100.0100 ####[facility] [address] [place], [address] Monocytes/100 WBC (Bld) 9.5 % Normal 0-10 [facility] Comment on above: Performed By: #### L 501.2300, L500.4050, L500.4100, L501.5200, L100.0100 ####[facility] [address] [place], [address] Neutrophils/100 WBC (Bld) 75.9 % High 47-70 [facility] Comment on above: Performed By: #### L 501.2300, L500.4050, L500.4100, L501.5200, L100.0100 ####[facility] [address] [place], [address] Nucleated RBC (Bld) [#/Vol] 0 10*3/uL Normal 0-5 [facility] Comment on above: Performed By: #### L 501.2300, L500.4050, L500.4100, L501.5200, L100.0100 ####[facility] [address] [place], [address] Platelet mean volume (Bld) [Entitic vol] 11.0 fL Normal 6.2-12.0 [facility] Comment on above: Performed By: #### L 501.2300, L500.4050, L500.4100, L501.5200, L100.0100 ####[facility] [address] [place], [address] Platelets (Bld) [#/Vol] 175 10*3/uL Normal 150-450 [facility] Comment on above: Performed By: #### L 501.2300, L500.4050, L500.4100, L501.5200, L100.0100 ####[facility] [address] [place], [address] RBC (Bld) [#/Vol] 4.37 10*6/uL Low 4.6-6.2 [facility] Comment on above: Performed By: #### L 501.2300, L500.4050, L500.4100, L501.5200, L100.0100 ####[facility] [address] [place], [address] RDW SD 42.2 fl Normal 35.1-43.9 [facility] Comment on above: Performed By: #### L 501.2300, L500.4050, L500.4100, L501.5200, L100.0100 ####[facility] [address] [place], [address] WBC (Bld) [#/Vol] 8.1 10*3/uL Normal 4.4-11.0 [facility] Comment on above: Performed By: #### L 501.2300, L500.4050, L500.4100, L501.5200, L100.0100 ####[facility] [address] [place], [address] Comprehensive Metabolic Prof ilon 12-21-2024 Albumin [Mass/Vol] 4.1 g/dL Normal 3.4-4.8 [facility] Comment on above: Order Comment: Comme nts: NPO at [place] prior to lipid panel Performed By: #### L 501.2300, L500.4050, L500.4100, L501.5200, L100.0100 ####[facility] [address] [place], [address] Albumin/Globulin [Mass ratio] 1.4 {ratio} Normal 0.9-2.4 [facility] Comment on above: Order Comment: Comme nts: NPO at [place] prior to lipid panel Performed By: #### L 501.2300, L500.4050, L500.4100, L501.5200, L100.0100 ####[facility] [address] [place], [address] ALK PHOS 144 U/L High 40-129 [facility] Comment on above: Order Comment: Comme nts: NPO at [place] prior to lipid panel Performed By: #### L 501.2300, L500.4050, L500.4100, L501.5200, L100.0100 ####[facility] [address] [place], [address] ALT [Catalytic activity/Vol] 13 U/L Normal <=46 [facility] Comment on above: Order Comment: Comme nts: NPO at [place] prior to lipid panel Performed By: #### L 501.2300, L500.4050, L500.4100, L501.5200, L100.0100 ####[facility] [address] [place], [address] AST [Catalytic activity/Vol] 31 U/L Normal <=37 [facility] Comment on above: Order Comment: Comme nts: NPO at [place] prior to lipid panel Performed By: #### L 501.2300, L500.4050, L500.4100, L501.5200, L100.0100 ####[facility] [address] [place], [address] Bilirubin [Mass/Vol] 1.43 mg/dL High 0.00-1.30 [facility] Comment on above: Order Comment: Comme nts: NPO at [place] prior to lipid panel Performed By: #### L 501.2300, L500.4050, L500.4100, L501.5200, L100.0100 ####[facility] [address] [place], [address] BUN/CRE 22.5 RATIO High 10-20 [facility] Comment on above: Order Comment: Comme nts: NPO at [place] prior to lipid panel Performed By: #### L 501.2300, L500.4050, L500.4100, L501.5200, L100.0100 ####[facility] [address] [place], [address] Calcium [Mass/Vol] 9.5 mg/dL Normal 7.6-11.0 [facility] Comment on above: Order Comment: Comme nts: NPO at [place] prior to lipid panel Performed By: #### L 501.2300, L500.4050, L500.4100, L501.5200, L100.0100 ####[facility] [address] [place], [address] Chloride [Moles/Vol] 104 mmol/L Normal 98-108 [facility] Comment on above: Order Comment: Comme nts: NPO at [place] prior to lipid panel Performed By: #### L 501.2300, L500.4050, L500.4100, L501.5200, L100.0100 ####[facility] [address] [place], [address] CO2 [Moles/Vol] 19.1 mmol/L Low 21.0-32.0 [facility] Comment on above: Order Comment: Comme nts: NPO at [place] prior to lipid panel Performed By: #### L 501.2300, L500.4050, L500.4100, L501.5200, L100.0100 ####[facility] [address] [place], [address] Creatinine [Mass/Vol] 1.03 mg/dL Normal 0.70-1.20 [facility] Comment on above: Order Comment: Comme nts: NPO at [place] prior to lipid panel Performed By: #### L 501.2300, L500.4050, L500.4100, L501.5200, L100.0100 ####[facility] [address] [place], [address] ECRCL 63.41 ml/min Normal 50-250 [facility] Comment on above: Order Comment: Comme nts: NPO at [place] prior to lipid panel Performed By: #### L 501.2300, L500.4050, L500.4100, L501.5200, L100.0100 ####[facility] [address] [place], [address] GAP 13 Normal 5-15 [facility] Comment on above: Order Comment: Comme nts: NPO at [place] prior to lipid panel Performed By: #### L 501.2300, L500.4050, L500.4100, L501.5200, L100.0100 ####[facility] [address] [place], [address] GFR/1.73 sq M.predicted among non-blacks MDRD (S/P/Bld) [Vol rate/Area] 70 mL/min/{1.73_m2} Normal >60 [facility] Comment on above: Order Comment: Comme nts: NPO at [place] prior to lipid panel Result Comment: mL/m in/1.73m2 CKD-EPI Creatinine Equation (2020) Performed By: #### L 501.2300, L500.4050, L500.4100, L501.5200, L100.0100 ####[facility] [address] [place], [address] Globulin (S) [Mass/Vol] 2.9 g/dL Normal 2.2-4.2 [facility] Comment on above: Order Comment: Comme nts: NPO at [place] prior to lipid panel Performed By: #### L 501.2300, L500.4050, L500.4100, L501.5200, L100.0100 ####[facility] [address] [place], [address] Glucose [Mass/Vol] 99 mg/dL Normal 70-99 [facility] Comment on above: Order Comment: Comme nts: NPO at [place] prior to lipid panel Performed By: #### L 501.2300, L500.4050, L500.4100, L501.5200, L100.0100 ####[facility] [address] [place], [address] Potassium [Moles/Vol] 4.2 mmol/L Normal 3.3-5.1 [facility] Comment on above: Order Comment: Comme nts: NPO at [place] prior to lipid panel Performed By: #### L 501.2300, L500.4050, L500.4100, L501.5200, L100.0100 ####[facility] [address] [place], [address] Sodium [Moles/Vol] 136 mmol/L Normal 133-145 [facility] Comment on above: Order Comment: Comme nts: NPO at [place] prior to lipid panel Performed By: #### L 501.2300, L500.4050, L500.4100, L501.5200, L100.0100 ####[facility] [address] [place], [address] T PROT 7.1 g/dL Normal 5.9-8.4 [facility] Comment on above: Order Comment: Comme nts: NPO at [place] prior to lipid panel Performed By: #### L 501.2300, L500.4050, L500.4100, L501.5200, L100.0100 ####[facility] [address] [place], [address] Urea nitrogen [Mass/Vol] 23 mg/dL High 4-19 [facility] Comment on above: Order Comment: Comme nts: NPO at [place] prior to lipid panel Performed By: #### L 501.2300, L500.4050, L500.4100, L501.5200, L100.0100 ####[facility] [address] [place], [address] Lipid Profileon 12-21-2024 CHOL:HDL 1.90 Normal [facility] Comment on above: Order Comment: Comme nts: NPO at [place] prior to lipid panel Performed By: #### L 501.2300, L500.4050, L500.4100, L501.5200, L100.0100 ####[facility] [address] [place], [address] Cholesterol [Mass/Vol] 105 mg/dL Normal <=200 [facility] Comment on above: Order Comment: Comme nts: NPO at [place] prior to lipid panel Result Comment: Chol esterol level, Desirable <200 mg/dLBorderline high cholesterol 200-239 mg/dLHigh cholesterol >=240 mg/dLRecommendations of the NCEP Adult Treatment Panel for thefollowing risk-cutoff thresholds for the [place] Americanpopulation. Performed By: #### L 501.2300, L500.4050, L500.4100, L501.5200, L100.0100 ####[facility] [address] [place], [address] Cholesterol in HDL [Mass/Vol] 55 mg/dL Normal [facility] Comment on above: Order Comment: Comme nts: NPO at [place] prior to lipid panel Result Comment: Natasha onal Cholesterol Education Program (NCEP) guidelines:<40 mg/dL: Low HDL-cholesterol (major risk factor for CHD)>= 60 mg/dL: High HDL-cholesterol (negative risk factor forCHD)HDL-cholesterol is affected by a number of factors, e.g.smoking, exercise, hormones, sex and age. Performed By: #### L 501.2300, L500.4050, L500.4100, L501.5200, L100.0100 ####[facility] [address] [place], [address] Cholesterol in LDL [Mass/Vol] 40 mg/dL Normal [facility] Comment on above: Order Comment: Comme nts: NPO at [place] prior to lipid panel Result Comment: Bord bveonz=175-669 mg/dL Higher Zypz=498 mg/dL or greater Performed By: #### L 501.2300, L500.4050, L500.4100, L501.5200, L100.0100 ####[facility] [address] [place], [address] Cholesterol in VLDL [Mass/Vol] 9 mg/dL Normal 5-40 [facility] Comment on above: Order Comment: Comme nts: NPO at [place] prior to lipid panel Performed By: #### L 501.2300, L500.4050, L500.4100, L501.5200, L100.0100 ####[facility] [address] [place], [address] Triglyceride [Mass/Vol] 47 mg/dL Normal [facility] Comment on above: Order Comment: Comme nts: NPO at [place] prior to lipid panel Result Comment: The drugs N-Acetylcysteine and Metamizole may falselydepress this assay.Normal range: <150 mg/dLBorderline High: 150-199 mg/dLHigh: 200-499 mg/dLVery High: >500 mg/dL Performed By: #### L 501.2300, L500.4050, L500.4100, L501.5200, L100.0100 ####[facility] [address] [place], [address] MR/CON.PCM.NEon 12-21-2024 MR/CON.PCM.NE Normal [facility] Magnesiumon 12-21-2024 Magnesium [Mass/Vol] 2.1 mg/dL Normal 1.5-2.2 [facility] Comment on above: Order Comment: Comme nts: NPO at [place] prior to lipid panel Performed By: #### L 501.2300, L500.4050, L500.4100, L501.5200, L100.0100 ####[facility] [address] [place], [address] Phosphoruson 12-21-2024 Phosphate [Mass/Vol] 2.7 mg/dL Normal 2.7-4.5 [facility] Comment on above: Order Comment: Comme nts: NPO at [place] prior to lipid panel Performed By: #### L 501.2300, L500.4050, L500.4100, L501.5200, L100.0100 ####[facility] [address] [place], [address] 12 Lead EKGon 12-20-2024 12 Lead EKG Normal [facility] Absolute lymphocyte countOrd ered By: Edin Back on 12-20-2024 Lymphocytes Auto (Unsp spec) [#/Vol] 0.76 10*3/uL Low 0.83-4.51 [facility] Absolute neutrophil countOrd ered By: Edin Back on 12-20-2024 Neutrophils (Bld) [#/Vol] 6.0 10*3/uL 2.0-7.7 [facility] Anion gap in Serum or Plasma Ordered By: Edin Back on 12-20-2024 Anion gap [Moles/Vol] 13 mmol/L 5-15 [facility] Automated lymphocyte count a s percentage of total leukocytesOrdered By: Edin Back on 12-20-2024 Lymphocytes/100 WBC Auto (Unsp spec) 10.1 % Low 19-41 [facility] BUN/creatinine ratioOrdered By: Edin Back on 12-20-2024 Urea nitrogen/Creatinine [Mass ratio] 23.7 mg/mg High 10-20 [facility] Basic Metabolic Profile (BMP )on 12-20-2024 BUN/CRE 23.7 RATIO High 10-20 [facility] Comment on above: Performed By: #### L 100.0100, L500.2500 ####[facility] [address] [place], [address] Calcium [Mass/Vol] 9.8 mg/dL Normal 7.6-11.0 [facility] Comment on above: Performed By: #### L 100.0100, L500.2500 ####[facility] [address] [place], [address] Chloride [Moles/Vol] 100 mmol/L Normal 98-108 [facility] Comment on above: Performed By: #### L 100.0100, L500.2500 ####[facility] [address] [place], [address] CO2 [Moles/Vol] 22.3 mmol/L Normal 21.0-32.0 [facility] Comment on above: Performed By: #### L 100.0100, L500.2500 ####[facility] [address] [place], [address] Creatinine [Mass/Vol] 1.23 mg/dL High 0.70-1.20 [facility] Comment on above: Performed By: #### L 100.0100, L500.2500 ####[facility] [address] [place], [address] ECRCL 55.30 ml/min Normal 50-250 [facility] Comment on above: Performed By: #### L 100.0100, L500.2500 ####[facility] [address] [place], [address] GAP 13 Normal 5-15 [facility] Comment on above: Performed By: #### L 100.0100, L500.2500 ####[facility] [address] [place], [address] GFR/1.73 sq M.predicted among non-blacks MDRD (S/P/Bld) [Vol rate/Area] 57 mL/min/{1.73_m2} Low >60 [facility] Comment on above: Result Comment: mL/m in/1.73m2 CKD-EPI Creatinine Equation (2020) Performed By: #### L 100.0100, L500.2500 ####[facility] [address] [place], [address] Glucose [Mass/Vol] 117 mg/dL High 70-99 [facility] Comment on above: Performed By: #### L 100.0100, L500.2500 ####[facility] [address] [place], [address] Potassium [Moles/Vol] 4.0 mmol/L Normal 3.3-5.1 [facility] Comment on above: Performed By: #### L 100.0100, L500.2500 ####[facility] [address] [place], [address] Sodium [Moles/Vol] 135 mmol/L Normal 133-145 [facility] Comment on above: Performed By: #### L 100.0100, L500.2500 ####[facility] [address] [place], [address] Urea nitrogen [Mass/Vol] 29 mg/dL High 4-19 [facility] Comment on above: Performed By: #### L 100.0100, L500.2500 ####[facility] [address] [place], [address] Basophil percentageOrdered B y: Edin Back on 12-20-2024 Basophils/100 WBC (Bld) 0.8 % 0-1 [facility] Bilirubin Test strip Ql (U)O rdered By: Edin Back on 12-20-2024 Bilirubin Ql (U) Negative Negative [facility] Brain without Contraston Brain without Contrast Normal [facility] Brain/Head without Contrasto n 12-20-2024 Brain/Head without Contrast Normal [facility] CBC W/Diff, Automatedon Absolute Lymph 0.76 X10 3/uL Low 0.83-4.51 [facility] Comment on above: Performed By: #### L 100.0100, L500.2500 ####[facility] [address] [place], [address] Absolute Neut 6.0 X10 3/uL Normal 2.0-7.7 [facility] Comment on above: Performed By: #### L 100.0100, L500.2500 ####[facility] [address] [place], [address] Basophils/100 WBC (Bld) 0.8 % Normal 0-1 [facility] Comment on above: Performed By: #### L 100.0100, L500.2500 ####[facility] [address] [place], [address] Eosinophils/100 WBC (Bld) 1.1 % Normal 0-5 [facility] Comment on above: Performed By: #### L 100.0100, L500.2500 ####[facility] [address] [place], [address] Erythrocyte distribution width (RBC) [Ratio] 13.1 % Normal 11.6-14.6 [facility] Comment on above: Performed By: #### L 100.0100, L500.2500 ####[facility] [address] [place], [address] Hematocrit (Bld) [Volume fraction] 40.2 % Normal 40-54 [facility] Comment on above: Performed By: #### L 100.0100, L500.2500 ####[facility] [address] [place], [address] Hemoglobin (Bld) [Mass/Vol] 13.5 g/dL Normal 13.0-16.5 [facility] Comment on above: Performed By: #### L 100.0100, L500.2500 ####[facility] [address] [place], [address] IG% 0.300 Normal 0.0-0.9 [facility] Comment on above: Result Comment: IG% - Immature Granulocytes (promyelocytes, myelocytes andmetamyelocytes) > 1% indicates that a LEFT SHIFT is Present. Performed By: #### L 100.0100, L500.2500 ####[facility] [address] [place], [address] Lymphocytes/100 WBC (Bld) 10.1 % Low 19-41 [facility] Comment on above: Performed By: #### L 100.0100, L500.2500 ####[facility] [address] [place], [address] MCH (RBC) [Entitic mass] 30.6 pg Normal 27.0-32.0 [facility] Comment on above: Performed By: #### L 100.0100, L500.2500 ####[facility] [address] [place], [address] MCHC (RBC) [Mass/Vol] 33.6 g/dL Normal 32-36 [facility] Comment on above: Performed By: #### L 100.0100, L500.2500 ####[facility] [address] [place], [address] MCV (RBC) [Entitic vol] 91.2 fL Normal 80-94 [facility] Comment on above: Performed By: #### L 100.0100, L500.2500 ####[facility] [address] [place], [address] Monocytes/100 WBC (Bld) 7.8 % Normal 0-10 [facility] Comment on above: Performed By: #### L 100.0100, L500.2500 ####[facility] [address] [place], [address] Neutrophils/100 WBC (Bld) 79.9 % High 47-70 [facility] Comment on above: Performed By: #### L 100.0100, L500.2500 ####[facility] [address] [place], [address] Nucleated RBC (Bld) [#/Vol] 0 10*3/uL Normal 0-5 [facility] Comment on above: Performed By: #### L 100.0100, L500.2500 ####[facility] [address] [place], [address] Platelet mean volume (Bld) [Entitic vol] 10.5 fL Normal 6.2-12.0 [facility] Comment on above: Performed By: #### L 100.0100, L500.2500 ####[facility] [address] [place], [address] Platelets (Bld) [#/Vol] 178 10*3/uL Normal 150-450 [facility] Comment on above: Performed By: #### L 100.0100, L500.2500 ####[facility] [address] [place], [address] RBC (Bld) [#/Vol] 4.41 10*6/uL Low 4.6-6.2 [facility] Comment on above: Performed By: #### L 100.0100, L500.2500 ####[facility] [address] [place], [address] RDW SD 43.7 fl Normal 35.1-43.9 [facility] Comment on above: Performed By: #### L 100.0100, L500.2500 ####[facility] [address] [place], [address] WBC (Bld) [#/Vol] 7.5 10*3/uL Normal 4.4-11.0 [facility] Comment on above: Performed By: #### L 100.0100, L500.2500 ####[facility] [address] [place], [address] Carbon dioxide, total [Moles /volume] in Central venous bloodOrdered By: Edin Back on 12-20-2024 CO2 [Moles/Vol] 22.3 mmol/L 21.0-32.0 [facility] Chest PA and Lateralon 12-20 Chest PA and Lateral Normal [facility] Chloride assayOrdered By: Robbin Back on 12-20-2024 Chloride [Moles/Vol] 100 mmol/L 98-108 [facility] Echo Complete W/ Contraston 12-20-2024 Echo Complete W/ Contrast Normal [facility] Emergency Department Summary on 12-20-2024 Emergency Department Summary Normal [facility] Eosinophil percentageOrdered By: Edin Back on 12-20-2024 Eosinophils/100 WBC (Bld) 1.1 % 0-5 [facility] Erythrocyte distribution wid th ratioOrdered By: Edin Back on 12-20-2024 Erythrocyte distribution width (RBC) [Ratio] 13.1 % 11.6-14.6 [facility] Erythrocyte distribution wid th standard deviationOrdered By: Edin Back on 12-20-2024 Erythrocyte distribution width (RBC) [Ratio] 43.7 fl 35.1-43.9 [facility] Glomerular filtration rate ( GFR) estimation/1.73 sq m using serum, plasma, or whole bOrdered By: Edin Back on 12-20-2024 GFR/1.73 sq M.predicted among non-blacks MDRD (S/P/Bld) [Vol rate/Area] 57 mL/min/{1.73_m2} Low >60 [facility] Comment on above: mL/min/1.73m2 CKD-EP I Creatinine Equation (2020) H AND P Exam - Hospital[place] 12-20-2024 H&P Exam - Hospitalist Normal [facility] Hematocrit Auto (Bld) [Volum e fraction]Ordered By: Edin Back on 12-20-2024 Hematocrit (Bld) [Volume fraction] 40.2 % 40-54 [facility] Hemoglobin A1con 12-20-2024 HbA1c (Bld) [Mass fraction] 6.0 % High <=5.6 [facility] Comment on above: Result Comment: Norm al < 5.7 % Prediabetic 5.7 - 6.4 % Diabetic >or= 6.5 % Please note range changes. Performed By: #### L 501.9985 ####[facility] [address] [place], [address] Hemoglobin measurementOrdere d By: Edin Back on 12-20-2024 Hemoglobin (Bld) [Mass/Vol] 13.5 g/dL 13.0-16.5 [facility] Immature granulocytes/100 WB C Auto (Bld)Ordered By: Edin Back on 12-20-2024 Immature granulocytes/100 WBC (Bld) 0.300 % 0.0-0.9 [facility] Comment on above: IG% - Immature Granu locytes (promyelocytes, myelocytes and metamyelocytes) > 1% indicates that a LEFT SHIFT is Present. Ketones Test strip Ql (U)Ord ered By: Edin Back on 12-20-2024 Ketones Ql (U) Negative Negative [facility] MCV (mean corpuscular volume ) determinationOrdered By: Edin Back on 12-20-2024 MCV (RBC) [Entitic vol] 91.2 fL 80-94 [facility] Mean corpuscular hemoglobin (MCH) determinationOrdered By: Edin Back on 12-20-2024 MCH (RBC) [Entitic mass] 30.6 pg 27.0-32.0 [facility] Mean corpuscular hemoglobin concentration (MCHC) determinationOrdered By: Edin Back on 12-20-2024 MCHC (RBC) [Mass/Vol] 33.6 g/dL 32-36 [facility] Mean platelet volume determi nationOrdered By: Edin Back on 12-20-2024 Platelet mean volume (Bld) [Entitic vol] 10.5 fL 6.2-12.0 [facility] Microscopic analysis of urin e for red blood cells (RBC)Ordered By: Edin Back on 12-20-2024 Microscopic analysis of urine for red blood cells (RBC) 0 SEEN /hpf 0-5 [facility] Monocyte percentageOrdered B y: Edin Back on 12-20-2024 Monocytes/100 WBC (Bld) 7.8 % 0-10 [facility] Mucus LM Ql (Urine sed)Order ed By: Edin Back on 12-20-2024 Mucus Ql (Urine sed) 0 SEEN /hpf [facility] Neutrophil percentageOrdered By: Edin Back on 12-20-2024 Neutrophils/100 WBC (Bld) 79.9 % High 47-70 [facility] Nitrite Test strip Ql (U)Ord ered By: Edin Back on 12-20-2024 Nitrite Ql (U) Negative Negative [facility] Nucleated red blood cell per centageOrdered By: Edin Bcak on 12-20-2024 Nucleated RBC/100 WBC (Bld) [Ratio] 0 % 0-5 [facility] Platelet countOrdered By: Robbin Back on 12-20-2024 Platelets (Bld) [#/Vol] 178 10*3/uL 150-450 [facility] Potassium measurement (mass/ volume)Ordered By: Edin Back on 12-20-2024 Potassium (Unsp spec) [Mass/Vol] 4.0 mmol/L 3.3-5.1 [facility] Protein Test strip Ql (U)Ord ered By: Edin Back on 12-20-2024 Protein Ql (U) 15 mg/dl High Negative [facility] RBC Auto (Bld) [#/Vol]Ordere d By: Edin Back on 12-20-2024 RBC (Bld) [#/Vol] 4.41 10*6/uL Low 4.6-6.2 [facility] STROKE CTA Head AND Neck W/C onon 12-20-2024 STROKE CTA Head AND Neck W/Con Normal [facility] Serum creatinine measurement (mass/volume)Ordered By: Edin Back on 12-20-2024 Creatinine [Mass/Vol] 1.23 mg/dL High 0.70-1.20 [facility] Serum glucose measurement (m ass/volume)Ordered By: Edin Back on 12-20-2024 Glucose [Mass/Vol] 117 mg/dL High 70-99 [facility] Serum or plasma calcium todd urement (mass/volume)Ordered By: Edin Back on 12-20-2024 Calcium [Mass/Vol] 9.8 mg/dL 7.6-11.0 [facility] Serum or plasma urea nitroge n measurement (mass/volume)Ordered By: Edin Back on 12-20-2024 Urea nitrogen [Mass/Vol] 29 mg/dL High 4-19 [facility] Sodium levelOrdered By: Edin Back on 12-20-2024 Sodium [Moles/Vol] 135 mmol/L 133-145 [facility] Squamous epithelial cells de tection in urine sediment by light microscopyOrdered By: Edin Back on 12-20-2024 Epithelial cells.squamous LM Ql (Urine sed) 0 SEEN /hpf 0-5 [facility] Urinalysis, Completeon 12-20 BACTERIA 0 SEEN Normal None Seen [facility] Comment on above: Order Comment: CLEAN CATCH Performed By: #### L 400.0001 ####[facility] [address] [place], [place], [id number] EPI,SQUAMOUS 0 SEEN Normal 0-5 [facility] Comment on above: Order Comment: CLEAN CATCH Performed By: #### L 400.0001 ####[facility] [address] [place], [address] Mucus Ql (Urine sed) 0 SEEN Normal [facility] Comment on above: Order Comment: CLEAN CATCH Performed By: #### L 400.0001 ####[facility] [address] [place], [address] RBC 0 SEEN Normal 0-5 [facility] Comment on above: Order Comment: CLEAN CATCH Performed By: #### L 400.0001 ####[facility] [address] [place], [address] WBC 0 SEEN Normal 0-5 [facility] Comment on above: Order Comment: CLEAN CATCH Performed By: #### L 400.0001 ####[facility] [address] [place], [place], [id number] Urine clarityOrdered By: Tiago Back on 12-20-2024 Clarity (U) Clear Clear [facility] Urine color determinationOrd ered By: Edin Back on 12-20-2024 Color (U) Yellow Yellow [facility] Urine glucose detectionOrder ed By: Edin Back on 12-20-2024 Glucose Ql (U) Normal mg/dl Normal [facility] Urine leukocyte esterase det ection by dipstickOrdered By: Edin Back on 12-20-2024 Leukocyte esterase Test strip Ql (U) Negative Negative [facility] Urine pHOrdered By: Edin ramirez on 12-20-2024 pH (U) 6.5 [pH] 5.0 - 8.0 [facility] Urine sediment bacteria coun t by microscopy (number/high power field)Ordered By: Edin Back on 12-20-2024 Bacteria LM.HPF (Urine sed) [#/Area] 0 /[HPF] None Seen [facility] Urine specific gravity measu rementOrdered By: Edin Back on 12-20-2024 Specific gravity (U) [Rel density] 1.015 1.002-1.030 [facility] Urine urobilinogen measureme ntOrdered By: Edin Back on 12-20-2024 Urobilinogen Ql (U) Normal mg/dl Normal [facility] White blood cell (WBC) count Ordered By: Edin Back on 12-20-2024 WBC (Bld) [#/Vol] 7.5 10*3/uL 4.4-11.0 [facility] White blood cell countOrdere d By: Edin Back on 12-20-2024 White blood cell count 0 SEEN /hpf 0-5 [facility] Pulmonary Visit Reporton Pulmonary Visit Report Normal [facility] Orthopedic Visit Reporton Orthopedic Visit Report Normal [facility] CBC-Complete Blood Cnt No Di ffon 11-11-2024 Erythrocyte distribution width (RBC) [Ratio] 13.2 % Normal 11.6-14.6 [facility] Comment on above: Performed By: #### L 100.0500 ####[facility] [address] [place], [address] Hematocrit (Bld) [Volume fraction] 36.7 % Low 40-54 [facility] Comment on above: Performed By: #### L 100.0500 ####[facility] [address] [place], [address] Hemoglobin (Bld) [Mass/Vol] 12.2 g/dL Low 13.0-16.5 [facility] Comment on above: Performed By: #### L 100.0500 ####[facility] [address] [place], [address] MCH (RBC) [Entitic mass] 30.7 pg Normal 27.0-32.0 [facility] Comment on above: Performed By: #### L 100.0500 ####[facility] [address] [place], [address] MCHC (RBC) [Mass/Vol] 33.2 g/dL Normal 32-36 [facility] Comment on above: Performed By: #### L 100.0500 ####[facility] [address] [place], [address] MCV (RBC) [Entitic vol] 92.4 fL Normal 80-94 [facility] Comment on above: Performed By: #### L 100.0500 ####[facility] [address] [place], [address] Platelet mean volume (Bld) [Entitic vol] 10.7 fL Normal 6.2-12.0 [facility] Comment on above: Performed By: #### L 100.0500 ####[facility] [address] [place], [address] Platelets (Bld) [#/Vol] 180 10*3/uL Normal 150-450 [facility] Comment on above: Performed By: #### L 100.0500 ####[facility] [address] [place], [address] RBC (Bld) [#/Vol] 3.97 10*6/uL Low 4.6-6.2 [facility] Comment on above: Performed By: #### L 100.0500 ####[facility] [address] [place], [address] RDW SD 44.5 fl High 35.1-43.9 [facility] Comment on above: Performed By: #### L 100.0500 ####[facility] [address] [place], [address] WBC (Bld) [#/Vol] 4.7 10*3/uL Normal 4.4-11.0 [facility] Comment on above: Performed By: #### L 100.0500 ####[facility] [address] [place], [address] MR/PAT.ANEon 11-11-2024 MR/PAT.ANE Normal [facility] Urine Cultureon 10-30-2024 URC Normal [facility] Comment on above: Performed By: #### M 100.2200 ####[facility] [address] [place], [address] Urine cultureOrdered By: Mahamed Murrieta on 10-28-2024 Bacteria identified Cx Nom (U) Escherichia coli Abnormal [facility] Urine culture Escherichia coli Abnormal [facility] Urine Cultureon 10-20-2024 URC Normal [facility] Comment on above: Performed By: #### L 400.0001, M100.2200 ####[facility] [address] [place], [address] Bacteria LM.HPF (Urine sed) [#/Area]Ordered By: La Woods on 10-18-2024 Urine sediment bacteria count by microscopy (number/high power field) 1+ /hpf None Seen [facility] Bilirubin Test strip Ql (U)O rdered By: La Woods on 10-18-2024 Bilirubin Ql (U) Negative Negative [facility] Clarity (U)Ordered By: La Woods on 10-18-2024 Urine clarity Cloudy Clear [facility] Color (U)Ordered By: La ramos on 10-18-2024 Urine color determination Yellow Yellow [facility] Epithelial cells.squamous LM Ql (Urine sed)Ordered By: La Woods on 10-18-2024 Squamous epithelial cells detection in urine sediment by light microscopy 0-5 SEEN /hpf 0-5 [facility] Ketones Test strip Ql (U)Ord ered By: La Woods on 10-18-2024 Ketones Ql (U) Negative Negative [facility] Leukocyte esterase Test stri p Ql (U)Ordered By: La Woods on 10-18-2024 Urine leukocyte esterase detection by dipstick 500 /ul High Negative [facility] Microscopic analysis of urin e for red blood cells (RBC)Ordered By: La Woods on 10-18-2024 Microscopic analysis of urine for red blood cells (RBC) 10-25 SEEN /hpf 0-5 [facility] Microscopic analysis of urine for red blood cells (RBC) 10-25 SEEN /hpf 0-5 [facility] Mucus LM Ql (Urine sed)Order ed By: La Woods on 10-18-2024 Mucus Ql (Urine sed) 0 SEEN /hpf [facility] Mucus detection in urine sediment by light microscopy 0 SEEN /hpf [facility] Nitrite Test strip Ql (U)Ord ered By: La Woods on 10-18-2024 Nitrite Ql (U) Negative Negative [facility] Protein Test strip Ql (U)Ord ered By: La Woods on 10-18-2024 Protein Ql (U) 100 mg/dl High Negative [facility] Urine protein assay by test strip, semi-quantitative 100 mg/dl High Negative [facility] Specific gravity (U) [Rel de nsity]Ordered By: La Woods on 10-18-2024 Urine specific gravity measurement 1.015 1.002-1.030 [facility] Squamous epithelial cells de tection in urine sediment by light microscopyOrdered By: La Woods on 10-18-2024 Epithelial cells.squamous LM Ql (Urine sed) 0-5 SEEN /hpf 0-5 [facility] Urinalysis, Completeon 10-18 BACTERIA 1+ /hpf Normal None Seen [facility] Comment on above: Order Comment: BLANCA CTOR TO SPECIFY Performed By: #### L 400.0001, M100.2200 ####[facility] [address] [place], [address] EPI,SQUAMOUS 0-5 SEEN Normal 0-5 [facility] Comment on above: Order Comment: BLANCA CTOR TO SPECIFY Performed By: #### L 400.0001, M100.2200 ####[facility] [address] [place], [address] RBC 10-25 SEEN Normal 0-5 [facility] Comment on above: Order Comment: BLANCA CTOR TO SPECIFY Performed By: #### L 400.0001, M100.2200 ####[facility] [address] [place], [address] WBC >100 SEEN Normal 0-5 [facility] Comment on above: Order Comment: BLANCA CTOR TO SPECIFY Performed By: #### L 400.0001, M100.2200 ####[facility] [address] [place], [address] Mucus Ql (Urine sed) 0 SEEN Normal [facility] Comment on above: Order Comment: COLLE CTOR TO SPECIFY Performed By: #### L 400.0001, M100.2200 ####[facility] [address] [place], [address] Urine blood detectionOrdered By: La Woods on 10-18-2024 Urine blood detection 250 /ul High Negative [facility] Urine clarityOrdered By: [place] Woods on 10-18-2024 Clarity (U) Cloudy Clear [facility] Urine color determinationOrd ered By: La Woods on 10-18-2024 Color (U) Yellow Yellow [facility] Urine cultureOrdered By: [place] Woods on 10-18-2024 Bacteria identified Cx Nom (U) Escherichia coli Abnormal [facility] Urine culture Escherichia coli Abnormal [facility] Urine glucose detectionOrder ed By: La Woods on 10-18-2024 Glucose Ql (U) Normal mg/dl Normal [facility] Urine glucose detection Normal mg/dl Normal [facility] Urine leukocyte esterase det ection by dipstickOrdered By: La Woods on 10-18-2024 Leukocyte esterase Test strip Ql (U) 500 /ul High Negative [facility] Urine pHOrdered By: La yung on 10-18-2024 pH (U) 6.0 [pH] 5.0 - 8.0 [facility] Urine sediment bacteria coun t by microscopy (number/high power field)Ordered By: La Woods on 10-18-2024 Bacteria LM.HPF (Urine sed) [#/Area] 1 /[HPF] None Seen [facility] Urine specific gravity measu rementOrdered By: La Woods on 10-18-2024 Specific gravity (U) [Rel density] 1.015 1.002-1.030 [facility] Urine total bilirubin detect ion by test stripOrdered By: La Woods on 10-18-2024 Urine total bilirubin detection by test strip Negative Negative [facility] Urine urobilinogen measureme ntOrdered By: La Woods on 03-31-2025 Urobilinogen Ql (U) Normal mg/dl Normal [facility] White blood cell countOrdere d By: La Woods on 10-18-2024 White blood cell count >100 SEEN /hpf 0-5 [facility] White blood cell count >100 SEEN /hpf 0-5 [facility] pH (U)Ordered By: La Sam hner on 10-18-2024 Urine pH 6.0 5.0 - 8.0 [facility] Anion gap [Moles/Vol]Ordered By: Colette Cardenas on 10-11-2024 Anion gap in Serum or Plasma 13 - [facility] Anion gap in Serum or Plasma Ordered By: Colette Cardenas on 10-11-2024 Anion gap [Moles/Vol] 13 mmol/L 12-02 [facility] BUN/creatinine ratioOrdered By: Colette Cardenas on 10-11-2024 Urea nitrogen/Creatinine [Mass ratio] 23.9 mg/mg High 10- [facility] BUN/creatinine ratio 23.9 RATIO High 10-20 [facility] Basic Metabolic Profile (BMP )on 10-11-2024 BUN/CRE 23.9 RATIO High -20 [facility] Comment on above: Performed By: #### L 500.2500, L503.1315 ####[facility] [address] [place], [address] Calcium [Mass/Vol] 9.5 mg/dL Normal 7.6-11.0 [facility] Comment on above: Performed By: #### L 500.2500, L503.7505 ####[facility] [address] [place], [address] Chloride [Moles/Vol] 96 mmol/L Low 98-108 [facility] Comment on above: Performed By: #### L 500.2500, L503.7505 ####[facility] [address] [place], [address] CO2 [Moles/Vol] 22.4 mmol/L Normal 21.0-32.0 [facility] Comment on above: Performed By: #### L 500.2500, L503.7505 ####[facility] [address] [place], [address] Creatinine [Mass/Vol] 1.14 mg/dL Normal 0.70-1.20 [facility] Comment on above: Performed By: #### L 500.2500, L503.7505 ####[facility] [address] [place], [address] GAP 13 Normal 5-15 [facility] Comment on above: Performed By: #### L 500.2500, L503.7505 ####[facility] [address] [place], [address] GFR/1.73 sq M.predicted among non-blacks MDRD (S/P/Bld) [Vol rate/Area] 62 mL/min/{1.73_m2} Normal >60 [facility] Comment on above: Result Comment: mL/m in/1.73m2 CKD-EPI Creatinine Equation (2020) Performed By: #### L 500.2500, L503.7505 ####[facility] [address] [place], [address] Glucose [Mass/Vol] 96 mg/dL Normal 70-99 [facility] Comment on above: Performed By: #### L 500.2500, L503.7505 ####[facility] [address] [place], [address] Potassium [Moles/Vol] 4.6 mmol/L Normal 3.3-5.1 [facility] Comment on above: Performed By: #### L 500.2500, L503.7505 ####[facility] [address] [place], [address] Sodium [Moles/Vol] 131 mmol/L Low 133-145 [facility] Comment on above: Performed By: #### L 500.2500, L503.7505 ####[facility] [address] [place], [place], [address] Urea nitrogen [Mass/Vol] 27 mg/dL High 4-19 [facility] Comment on above: Performed By: #### L 500.2500, L503.7505 ####[facility] [address] [place], [place], [address] Calcium [Mass/Vol]Ordered By : Colette Cardenas on 10-11-2024 Serum or plasma calcium measurement (mass/volume) 9.5 mg/dL 7.6-11.0 [facility] Carbon dioxide, total [Moles /volume] in Central venous bloodOrdered By: Colette Cardenas on 10-11-2024 CO2 [Moles/Vol] 22.4 mmol/L 21.0-32.0 [facility] Carbon dioxide, total [Moles/volume] in Central venous blood 22.4 mmol/L 21.0-32.0 [facility] Chloride assayOrdered By: Rachna Cardenas on 10-11-2024 Chloride [Moles/Vol] 96 mmol/L Low 98-108 [facility] Chloride assay 96 mmol/L Low 98-108 [facility] Creatinine [Mass/Vol]Ordered By: Colette Cardenas on 10-11-2024 Serum creatinine measurement (mass/volume) 1.14 mg/dL 0.70-1.20 [facility] GFR/1.73 sq M.predicted susanne g non-blacks MDRD (S/P/Bld) [Vol rate/Area]Ordered By: Colette Cardenas on 10-11-2024 Glomerular filtration rate (GFR) estimation/1.73 sq m using serum, plasma, or whole b 62 >60 [facility] Glomerular filtration rate ( GFR) estimation/1.73 sq m using serum, plasma, or whole bOrdered By: Colette Cardenas on 10-11-2024 GFR/1.73 sq M.predicted among non-blacks MDRD (S/P/Bld) [Vol rate/Area] 62 mL/min/{1.73_m2} >60 [facility] Comment on above: mL/min/1.73m2 CKD-EP I Creatinine Equation (2020) Glucose [Mass/Vol]Ordered By : Colette Cardenas on 10-11-2024 Serum glucose measurement (mass/volume) 96 mg/dL [facility] L503.7505on 10-11-2024 Natriuretic peptide B (Bld) [Mass/Vol] 1834 pg/mL High <=1800 [facility] Comment on above: Result Comment: Hear t Failure Unlikely: < 300 pg/mLHeart Failure Likely< 50 Years: > 450 pg/mL50-75 Years: > 900 pg/mL>75 Years: > 1800 pg/mL Performed By: #### L 500.2500, L503.7505 ####[facility] [address] [place], [address] Laboratory - Chemistry and C hemistry - challengeOrdered By: Colette Cardenas on 10-11-2024 Natriuretic peptide B (Bld) [Mass/Vol] 1834 pg/mL High <1800 [facility] Comment on above: Heart Failure Unlike ly: < 300 pg/mLHeart Failure Likely< 50 Years: > 450 pg/mL50-75 Years: > 900 pg/mL>75 Years: > 1800 pg/mL No Panel InformationOrdered By: Colette Cardenas on 10-11-2024 1834 pg/mL High <1800 [facility] Potassium (Unsp spec) [Mass/ Vol]Ordered By: Colette Cardenas on 10-11-2024 Potassium measurement (mass/volume) 4.6 mmol/L 3.3-5.1 [facility] Potassium measurement (mass/ volume)Ordered By: Colette Cardenas on 10-11-2024 Potassium (Unsp spec) [Mass/Vol] 4.6 mmol/L 3.3-5.1 [facility] Serum creatinine measurement (mass/volume)Ordered By: Colette Cardenas on 10-11-2024 Creatinine [Mass/Vol] 1.14 mg/dL 0.70-1.20 [facility] Serum glucose measurement (m ass/volume)Ordered By: Colette Cardenas on 10-11-2024 Glucose [Mass/Vol] 96 mg/dL [facility] Serum or plasma calcium todd urement (mass/volume)Ordered By: Colette Cardenas on 10-11-2024 Calcium [Mass/Vol] 9.5 mg/dL 7.6-11.0 [facility] Serum or plasma urea nitroge n measurement (mass/volume)Ordered By: Colette Cardenas on 10-11-2024 Urea nitrogen [Mass/Vol] 27 mg/dL High 11-06 [facility] Sodium levelOrdered By: Richard Cardenas on 10-11-2024 Sodium [Moles/Vol] 131 mmol/L Low 133-145 [facility] Sodium level 131 mmol/L Low 133-145 [facility] Urea nitrogen [Mass/Vol]Orde red By: Colette Cardenas on 10-11-2024 Serum or plasma urea nitrogen measurement (mass/volume) 27 mg/dL High 11-06 [facility] Urine Cultureon 10-09-2024 URC Normal [facility] Comment on above: Performed By: #### M 100.2200, L400.0001 ####[facility] [address] [place], [address] Bacteria LM.HPF (Urine sed) [#/Area]Ordered By: La Woods on 10-07-2024 Urine sediment bacteria count by microscopy (number/high power field) 1+ /hpf None Seen [facility] Bilirubin Test strip Ql (U)O rdered By: La Woods on 10-07-2024 Bilirubin Ql (U) Negative Negative [facility] Clarity (U)Ordered By: La Woods on 10-07-2024 Urine clarity Cloudy Clear [facility] Color (U)Ordered By: La ramos on 10-07-2024 Urine color determination Yellow Yellow [facility] Epithelial cells.squamous LM Ql (Urine sed)Ordered By: La Woods on 10-07-2024 Squamous epithelial cells detection in urine sediment by light microscopy 0-5 SEEN /hpf 0-5 [facility] Ketones Test strip Ql (U)Ord ered By: La Woods on 10-07-2024 Ketones Ql (U) Negative Negative [facility] Leukocyte esterase Test stri p Ql (U)Ordered By: La Woods on 10-07-2024 Urine leukocyte esterase detection by dipstick 500 /ul High Negative [facility] Microscopic analysis of urin e for red blood cells (RBC)Ordered By: La Woods on 10-07-2024 Microscopic analysis of urine for red blood cells (RBC) 10-25 SEEN /hpf 0-5 [facility] Microscopic analysis of urine for red blood cells (RBC) 10-25 SEEN /hpf 0-5 [facility] Mucus LM Ql (Urine sed)Order ed By: La Woods on 10-07-2024 Mucus Ql (Urine sed) 0 SEEN /hpf [facility] Mucus detection in urine sediment by light microscopy 0 SEEN /hpf [facility] Nitrite Test strip Ql (U)Ord ered By: La Woods on 10-07-2024 Nitrite Ql (U) Negative Negative [facility] Protein Test strip Ql (U)Ord ered By: La Woods on 10-07-2024 Protein Ql (U) 100 mg/dl High Negative [facility] Urine protein assay by test strip, semi-quantitative 100 mg/dl High Negative [facility] Specific gravity (U) [Rel de nsity]Ordered By: La Woods on 10-07-2024 Urine specific gravity measurement 1.015 1.002-1.030 [facility] Squamous epithelial cells de tection in urine sediment by light microscopyOrdered By: La Woods on 10-07-2024 Epithelial cells.squamous LM Ql (Urine sed) 0-5 SEEN /hpf 0-5 [facility] Urinalysis, Completeon 10-07 EPI,SQUAMOUS 0-5 SEEN Normal 0-5 [facility] Comment on above: Order Comment: Micro scopic field is filled. Other elements may beobscured.VEGETABLE HARVEST WORKER TO SPECIFY Performed By: #### M 100.2200, L400.0001 ####[facility] [address] [place], [address] BACTERIA 1+ /hpf Normal None Seen [facility] Comment on above: Order Comment: Micro scopic field is filled. Other elements may beobscured.[employer]GETABLE HARVEST WORKER TO SPECIFY Performed By: #### M 100.2200, L400.0001 ####[facility] [address] [place], [address] RBC 10-25 SEEN Normal 0-5 [facility] Comment on above: Order Comment: Micro scopic field is filled. Other elements may beobscured.[employer]GETABLE HARVEST WORKER TO SPECIFY Performed By: #### M 100.2200, L400.0001 ####[facility] [address] [place], [address] WBC >100 SEEN Normal 0-5 [facility] Comment on above: Order Comment: Micro scopic field is filled. Other elements may beobscured.[employer]GETABLE HARVEST WORKER TO SPECIFY Performed By: #### M 100.2200, L400.0001 ####[facility] [address] [place], [address] Mucus Ql (Urine sed) 0 SEEN Normal [facility] Comment on above: Order Comment: Micro scopic field is filled. Other elements may beobscured.VEGETABLE HARVEST WORKER TO SPECIFY Performed By: #### M 100.2200, L400.0001 ####[facility] [address] [place], [address] Urine blood detectionOrdered By: La Woods on 10-07-2024 Urine blood detection 250 /ul High Negative [facility] Urine clarityOrdered By: [place] Woods on 10-07-2024 Clarity (U) Cloudy Clear [facility] Urine color determinationOrd ered By: La Woods on 10-07-2024 Color (U) Yellow Yellow [facility] Urine cultureOrdered By: [place] Woods on 10-07-2024 Bacteria identified Cx Nom (U) Presumptive E. coli Abnormal [facility] Urine culture Presumptive E. coli Abnormal [facility] Urine glucose detectionOrder ed By: La Woods on 10-07-2024 Glucose Ql (U) Normal mg/dl Normal [facility] Urine glucose detection Normal mg/dl Normal [facility] Urine leukocyte esterase det ection by dipstickOrdered By: La Woods on 10-07-2024 Leukocyte esterase Test strip Ql (U) 500 /ul High Negative [facility] Urine pHOrdered By: La yung on 10-07-2024 pH (U) 6.0 [pH] 5.0 - 8.0 [facility] Urine sediment bacteria coun t by microscopy (number/high power field)Ordered By: La Woods on 10-07-2024 Bacteria LM.HPF (Urine sed) [#/Area] 1 /[HPF] None Seen [facility] Urine specific gravity measu rementOrdered By: La Woods on 10-07-2024 Specific gravity (U) [Rel density] 1.015 1.002-1.030 [facility] Urine total bilirubin detect ion by test stripOrdered By: La Woods on 10-07-2024 Urine total bilirubin detection by test strip Negative Negative [facility] Urine urobilinogen measureme ntOrdered By: La Woods on 10-07-2024 Urobilinogen Ql (U) Normal mg/dl Normal [facility] White blood cell countOrdere d By: La Woods on 10-07-2024 White blood cell count >100 SEEN /hpf 0-5 [facility] White blood cell count >100 SEEN /hpf 0-5 [facility] pH (U)Ordered By: La Sam hner on 10-07-2024 Urine pH 6.0 5.0 - 8.0 [facility] Anion gap [Moles/Vol]Ordered By: Robby Peralta on 09-28-2024 Anion gap in Serum or Plasma 13 12-02 [facility] Anion gap in Serum or Plasma Ordered By: Robby Peralta on 09-28-2024 Anion gap [Moles/Vol] 13 mmol/L 12-02 [facility] BUN/creatinine ratioOrdered By: Robby Peralta on 09-28-2024 Urea nitrogen/Creatinine [Mass ratio] 22.7 mg/mg High 05-09 [facility] BUN/creatinine ratio 22.7 RATIO High 05-09 [facility] Basic Metabolic Profile (BMP )on 09-28-2024 BUN/CRE 22.[address] [facility] Comment on above: Performed By: #### L 500.2500 ####[facility] [address] [place], [address] Calcium [Mass/Vol] 9.7 mg/dL Normal 7.6-11.0 [facility] Comment on above: Performed By: #### L 500.2500 ####[facility] [address] [place], [address] Chloride [Moles/Vol] 99 mmol/L Normal 98-108 [facility] Comment on above: Performed By: #### L 500.2500 ####[facility] [address] [place], [address] CO2 [Moles/Vol] 21.0 mmol/L Normal 21.0-32.0 [facility] Comment on above: Performed By: #### L 500.2500 ####[facility] [address] [place], [address] Creatinine [Mass/Vol] 1.13 mg/dL Normal 0.70-1.20 [facility] Comment on above: Performed By: #### L 500.2500 ####[facility] [address] [place], [address] GAP 13 Normal 5-15 [facility] Comment on above: Performed By: #### L 500.2500 ####[facility] [address] [place], [address] GFR/1.73 sq M.predicted among non-blacks MDRD (S/P/Bld) [Vol rate/Area] 63 mL/min/{1.73_m2} Normal >60 [facility] Comment on above: Result Comment: mL/m in/1.73m2 CKD-EPI Creatinine Equation (2020) Performed By: #### L 500.2500 ####[facility] [address] [place], [address] Glucose [Mass/Vol] 86 mg/dL Normal 70-99 [facility] Comment on above: Performed By: #### L 500.2500 ####[facility] [address] [place], [address] Potassium [Moles/Vol] 4.6 mmol/L Normal 3.3-5.1 [facility] Comment on above: Performed By: #### L 500.2500 ####[facility] [address] [place], [address] Sodium [Moles/Vol] 133 mmol/L Normal 133-145 [facility] Comment on above: Performed By: #### L 500.2500 ####[facility] [address] [place], [address] Urea nitrogen [Mass/Vol] 26 mg/dL High 4-19 [facility] Comment on above: Performed By: #### L 500.2500 ####[facility] [address] [place], [address] Calcium [Mass/Vol]Ordered By : Robby Peralta on 09-28-2024 Serum or plasma calcium measurement (mass/volume) 9.7 mg/dL 7.6-11.0 [facility] Carbon dioxide, total [Moles /volume] in Central venous bloodOrdered By: Robby Peralta on 09-28-2024 CO2 [Moles/Vol] 21.0 mmol/L 21.0-32.0 [facility] Carbon dioxide, total [Moles/volume] in Central venous blood 21.0 mmol/L 21.0-32.0 [facility] Chloride assayOrdered By: Gracia Peralta on 09-28-2024 Chloride [Moles/Vol] 99 mmol/L 98-108 [facility] Chloride assay 99 mmol/L 98-108 [facility] Creatinine [Mass/Vol]Ordered By: Robby Peralta on 09-28-2024 Serum creatinine measurement (mass/volume) 1.13 mg/dL 0.70-1.20 [facility] GFR/1.73 sq M.predicted susanne g non-blacks MDRD (S/P/Bld) [Vol rate/Area]Ordered By: Robby Peralta on 09-28-2024 Glomerular filtration rate (GFR) estimation/1.73 sq m using serum, plasma, or whole b 63 >60 [facility] Glomerular filtration rate ( GFR) estimation/1.73 sq m using serum, plasma, or whole bOrdered By: Robby Peralta on 09-28-2024 GFR/1.73 sq M.predicted among non-blacks MDRD (S/P/Bld) [Vol rate/Area] 63 mL/min/{1.73_m2} >60 [facility] Comment on above: mL/min/1.73m2 CKD-EP I Creatinine Equation (2020) Glucose [Mass/Vol]Ordered By : Robby Peralta on 09-28-2024 Serum glucose measurement (mass/volume) 86 mg/dL [facility] Potassium (Unsp spec) [Mass/ Vol]Ordered By: Robby Peralta on 09-28-2024 Potassium measurement (mass/volume) 4.6 mmol/L 3.3-5.1 [facility] Potassium measurement (mass/ volume)Ordered By: Robby Peralta on 09-28-2024 Potassium (Unsp spec) [Mass/Vol] 4.6 mmol/L 3.3-5.1 [facility] Serum creatinine measurement (mass/volume)Ordered By: Robby Peralta on 09-28-2024 Creatinine [Mass/Vol] 1.13 mg/dL 0.70-1.20 [facility] Serum glucose measurement (m ass/volume)Ordered By: Robby Peralta on 09-28-2024 Glucose [Mass/Vol] 86 mg/dL 70-99 [facility] Serum or plasma calcium todd urement (mass/volume)Ordered By: Robby Peralta on 09-28-2024 Calcium [Mass/Vol] 9.7 mg/dL 7.6-11.0 [facility] Serum or plasma urea nitroge n measurement (mass/volume)Ordered By: Robby Peralta on 09-28-2024 Urea nitrogen [Mass/Vol] 26 mg/dL High 4-19 [facility] Sodium levelOrdered By: Robby Peralta on 09-28-2024 Sodium [Moles/Vol] 133 mmol/L 133-145 [facility] Sodium level 133 mmol/L 133-145 [facility] Urea nitrogen [Mass/Vol]Orde red By: Robby Peralta on 09-28-2024 Serum or plasma urea nitrogen measurement (mass/volume) 26 mg/dL High - [facility] Anion gap [Moles/Vol]Ordered By: Robby Peralta on 09-15-2024 Serum or plasma anion gap determination (moles/volume) 11 5- [facility] BUN/creatinine ratioOrdered By: Robby Peralta on 09-15-2024 Urea nitrogen/Creatinine [Mass ratio] 14.4 mg/mg - [facility] BUN/creatinine ratio 14.4 RATIO - [facility] Basic Metabolic Profile (BMP )on 09-15-2024 Anion gap [Moles/Vol] 11 mmol/L Normal - [facility] Comment on above: Performed By: #### L 500.2500 ####[facility] [address] [place], [address] BUN/CRE 14.4 RATIO Normal - [facility] Comment on above: Performed By: #### L 500.2500 ####[facility] [address] [place], [address] Calcium [Mass/Vol] 9.5 mg/dL Normal 7.6-11.0 [facility] Comment on above: Performed By: #### L 500.2500 ####[facility] [address] [place], [address] Chloride [Moles/Vol] 98 mmol/L Normal 96-108 [facility] Comment on above: Performed By: #### L 500.2500 ####[facility] [address] [place], [address] CO2 [Moles/Vol] 18.9 mmol/L Low 22.0-29.0 [facility] Comment on above: Performed By: #### L 500.2500 ####[facility] [address] [place], [address] Creatinine [Mass/Vol] 1.3 mg/dL Normal 0.8-1.3 [facility] Comment on above: Performed By: #### L 500.2500 ####[facility] [address] [place], [address] GFR/1.73 sq M.predicted among non-blacks MDRD (S/P/Bld) [Vol rate/Area] 55 mL/min/{1.73_m2} Low >60 [facility] Comment on above: Result Comment: mL/m in/1.73m2 CKD-EPI Creatinine Equation (2020) Performed By: #### L 500.2500 ####[facility] [address] [place], [address] Glucose [Mass/Vol] 102 mg/dL High 70-99 [facility] Comment on above: Performed By: #### L 500.2500 ####[facility] [address] [place], [address] Potassium [Moles/Vol] 4.6 mmol/L Normal 3.3-5.1 [facility] Comment on above: Performed By: #### L 500.2500 ####[facility] [address] [place], [address] Sodium [Moles/Vol] 128 mmol/L Low 133-145 [facility] Comment on above: Performed By: #### L 500.2500 ####[facility] [address] [place], [address] Urea nitrogen [Mass/Vol] 18 mg/dL Normal 4-19 [facility] Comment on above: Performed By: #### L 500.2500 ####[facility] [address] [place], [address] Calcium [Mass/Vol]Ordered By : Robby Peralta on 09-15-2024 Serum or plasma calcium measurement (mass/volume) 9.5 mg/dL 7.6-11.0 [facility] Carbon dioxide measurementOr dered By: Robby Peralta on 09-15-2024 CO2 [Moles/Vol] 18.9 mmol/L Low 22.0-29.0 [facility] Carbon dioxide measurement 18.9 mmol/L Low 22.0-29.0 [facility] Chloride measurementOrdered By: Robby Peralta on 09-15-2024 Chloride [Moles/Vol] 98 mmol/L 96-108 [facility] Chloride measurement 98 mmol/L 96-108 [facility] Creatinine [Moles/Vol]Ordere d By: Robby Peralta on 09-15-2024 Serum or plasma creatinine measurement (moles/volume) 1.3 mg/dL 0.8-1.3 [facility] GFR/1.73 sq M.predicted susanne g non-blacks MDRD (S/P/Bld) [Vol rate/Area]Ordered By: Robby Peralta on 09-15-2024 Glomerular filtration rate (GFR) estimation/1.73 sq m using serum, plasma, or whole b 55 Low >60 [facility] Glomerular filtration rate ( GFR) estimation/1.73 sq m using serum, plasma, or whole bOrdered By: Robby Peralta on 09-15-2024 GFR/1.73 sq M.predicted among non-blacks MDRD (S/P/Bld) [Vol rate/Area] 55 mL/min/{1.73_m2} Low >60 [facility] Comment on above: mL/min/1.73m2 CKD-EP I Creatinine Equation (2020) Glucose [Mass/Vol]Ordered By : Robby Peralta on 09-15-2024 Serum glucose measurement (mass/volume) 102 mg/dL High 70-99 [facility] Potassium [Moles/Vol]Ordered By: Robby Peralta on 09-15-2024 Serum or plasma potassium measurement 4.6 mmol/L 3.3-5.1 [facility] Serum glucose measurement (m ass/volume)Ordered By: Robby Peralta on 09-15-2024 Glucose [Mass/Vol] 102 mg/dL High 70-99 [facility] Serum or plasma anion gap de termination (moles/volume)Ordered By: Robby Peralta on 09-15-2024 Anion gap [Moles/Vol] 11 mmol/L 5-15 [facility] Serum or plasma calcium todd urement (mass/volume)Ordered By: Robby Peralta on 09-15-2024 Calcium [Mass/Vol] 9.5 mg/dL 7.6-11.0 [facility] Serum or plasma creatinine m easurement (moles/volume)Ordered By: Robby Peralta on 09-15-2024 Creatinine [Moles/Vol] 1.3 mg/dL 0.8-1.3 [facility] Serum or plasma potassium me asurementOrdered By: Robby Peralta on 09-15-2024 Potassium [Moles/Vol] 4.6 mmol/L 3.3-5.1 [facility] Serum or plasma sodium measu rement (moles/volume)Ordered By: Robby Peralta on 09-15-2024 Sodium [Moles/Vol] 128 mmol/L Low 133-145 [facility] Serum or plasma urea nitroge n measurement (mass/volume)Ordered By: Robby Peralta on 09-15-2024 Urea nitrogen [Mass/Vol] 18 mg/dL 4- [facility] Sodium [Moles/Vol]Ordered By : Robby Peralta on 09-15-2024 Serum or plasma sodium measurement (moles/volume) 128 mmol/L Low 133-145 [facility] Urea nitrogen [Mass/Vol]Orde red By: Robby Peralta on 09-15-2024 Serum or plasma urea nitrogen measurement (mass/volume) 18 mg/dL 4- [facility] Urine Cultureon 09-15-2024 URC Normal [facility] Comment on above: Performed By: #### M 100.2200 ####[facility] [address] [place], [address] Urine cultureOrdered By: Trevor Lebron on 09-13-2024 Bacteria identified Cx Nom (U) Presumptive E. coli Abnormal [facility] Urine culture Presumptive E. coli Abnormal [facility] Laboratory - Chemistry and C hemistry - challengeOrdered By: Sydnie Lebron on 09-11-2024 Bilirubin Ql (U) Negative [facility] Glucose Ql (U) Negative [facility] Ketones Ql (U) Negative [facility] pH (U) 6.5 [pH] [facility] Specific gravity (U) [Rel density] 1.015 [facility] Urobilinogen (U) [Mass/Vol] Negative [facility] Laboratory - Hematology and Cell countsOrdered By: Sydnie Lebron on 09-11-2024 Hemoglobin Ql (U) Large [facility] Laboratory - Specimen inform ationOrdered By: Sydnie Lebron on 09-11-2024 Clarity (U) Cloudy [facility] Color (U) Dk Yellow [facility] Laboratory - UrinalysisOrder ed By: Sydnie Lebron on 09-11-2024 Nitrite Ql (U) Negative [facility] Protein Ql (U) 2+ [facility] No Panel InformationOrdered By: Sydnie Lebron on 09-11-2024 Urine Leukocytes Positive [facility] Urine Non-Hemolyzed Blood [facility] Dk Yellow [facility] Cloudy [facility] Negative [facility] 1.015 [facility] 6.5 [facility] Large [facility] 2+ [facility] Positive [facility] Urgent Care Visit Reporton 0 09-11-2024 Urgent Care Visit Report Normal [facility] MR/BMS.IMBon 09-06-2024 MR/BMS.IMB Normal [facility] Cardiology Visit Reporton Cardiology Visit Report Normal [facility] Culture, Blood (WB)on 2024 CUB Blood cultures x2, f rom two different sites No growth in 5 days. Normal [facility] Comment on above: Performed By: #### M 200.1000 ####[facility] [address] [place], [address] 12 Lead EKGon 08-18-2024 12 Lead EKG Normal [facility] ALP [Catalytic activity/Vol] Ordered By: Valente Coleman on 08-18-2024 Serum or plasma alkaline phosphatase measurement 139 U/L High 45-117 [facility] ALT [Catalytic activity/Vol] Ordered By: Valente Coleman on 08-18-2024 Serum or plasma alanine aminotransferase (ALT) measurement 22 U/L 16-61 [facility] Absolute lymphocyte countOrd ered By: Valente Coleman on 08-18-2024 Lymphocytes Auto (Unsp spec) [#/Vol] 0.94 10*3/uL 0.83-4.51 [facility] Absolute neutrophil countOrd ered By: Valente Coleman on 08-18-2024 Absolute neutrophil count 6.8 X10^3/uL 2.0-7.7 [facility] Albumin [Mass/Vol]Ordered By : Valente Coleman on 08-18-2024 Serum or plasma albumin measurement (mass/volume) 2.9 g/dL Low 3.2-5.0 [facility] Automated lymphocyte count a s percentage of total leukocytesOrdered By: Valente Coleman on 08-18-2024 Lymphocytes/100 WBC Auto (Unsp spec) 11.1 % Low 19-41 [facility] BNP (brain natriuretic pepti de measurement)Ordered By: Valente Coleman on 08-18-2024 Natriuretic peptide B (Bld) [Mass/Vol] 148.8 pg/mL High 0-100 [facility] BNP (brain natriuretic peptide measurement) 148.8 pg/mL High 0-100 [facility] BNP,B-Type NATRIURETIC PEPTI Rubina 08-18-2024 Natriuretic peptide B (Bld) [Mass/Vol] 148.8 pg/mL High 0-100 [facility] Comment on above: Performed By: #### L 500.3400, L100.0100, L503.6620, L500.2500, L501.4020 ####[facility] [address] [place], [address] Basic Metabolic Profile (BMP )on 08-18-2024 BUN/CRE 19.4 RATIO Normal 10-20 [facility] Comment on above: Order Comment: 'TROP ' Serial specimen #1, #2 or #3: 1 Performed By: #### L 500.3400, L100.0100, L503.6620, L500.2500, L501.4020 ####[facility] [address] [place], [address] CA,Total 9.2 mg/dL Normal 8.5-10.1 [facility] Comment on above: Order Comment: 'TROP ' Serial specimen #1, #2 or #3: 1 Performed By: #### L 500.3400, L100.0100, L503.6620, L500.2500, L501.4020 ####[facility] [address] [place], [address] Chloride [Moles/Vol] 97 mmol/L Low 98-107 [facility] Comment on above: Order Comment: 'TROP ' Serial specimen #1, #2 or #3: 1 Performed By: #### L 500.3400, L100.0100, L503.6620, L500.2500, L501.4020 ####[facility] [address] [place], [address] CO2 [Moles/Vol] 23.0 mmol/L Normal 21.0-32.0 [facility] Comment on above: Order Comment: 'TROP ' Serial specimen #1, #2 or #3: 1 Performed By: #### L 500.3400, L100.0100, L503.6620, L500.2500, L501.4020 ####[facility] [address] [place], [address] Creatinine [Mass/Vol] 1.24 mg/dL Normal 0.70-1.30 [facility] Comment on above: Order Comment: 'TROP ' Serial specimen #1, #2 or #3: 1 Result Comment: The validity of the calculated GFR GFRAA in patients over70 years has not been determined. Clinical correlation isessential. Performed By: #### L 500.3400, L100.0100, L503.6620, L500.2500, L501.4020 ####[facility] [address] [place], [address] ECRCL 54.14 ml/min Normal [facility] Comment on above: Order Comment: 'TROP ' Serial specimen #1, #2 or #3: 1 Performed By: #### L 500.3400, L100.0100, L503.6620, L500.2500, L501.4020 ####[facility] [address] [place], [address] EST GFR - AA 71 mL/min Normal >60 [facility] Comment on above: Order Comment: 'TROP ' Serial specimen #1, #2 or #3: 1 Result Comment: Afri can [place] GFR Calc Performed By: #### L 500.3400, L100.0100, L503.6620, L500.2500, L501.4020 ####[facility] [address] [place], [address] GAP 9 Normal 5-15 [facility] Comment on above: Order Comment: 'TROP ' Serial specimen #1, #2 or #3: 1 Performed By: #### L 500.3400, L100.0100, L503.6620, L500.2500, L501.4020 ####[facility] [address] [place], [address] GFR/1.73 sq M.predicted among non-blacks MDRD (S/P/Bld) [Vol rate/Area] 59 mL/min/{1.73_m2} Low >60 [facility] Comment on above: Order Comment: 'TROP ' Serial specimen #1, #2 or #3: 1 Result Comment: Non- GFR Calc Performed By: #### L 500.3400, L100.0100, L503.6620, L500.2500, L501.4020 ####[facility] [address] [place], [address] Glucose [Mass/Vol] 120 mg/dL High 74-106 [facility] Comment on above: Order Comment: 'TROP ' Serial specimen #1, #2 or #3: 1 Result Comment: Fast ing Glucose result from 100 to 125 mg/dLsuggests IMPAIRED HOMEOSTASIS per A.D.A. criteria. Performed By: #### L 500.3400, L100.0100, L503.6620, L500.2500, L501.4020 ####[facility] [address] [place], [address] Potassium [Moles/Vol] 3.9 mmol/L Normal 3.5-5.1 [facility] Comment on above: Order Comment: 'TROP ' Serial specimen #1, #2 or #3: 1 Performed By: #### L 500.3400, L100.0100, L503.6620, L500.2500, L501.4020 ####[facility] [address] [place], [address] Sodium [Moles/Vol] 129 mmol/L Low 136-145 [facility] Comment on above: Order Comment: 'TROP ' Serial specimen #1, #2 or #3: 1 Performed By: #### L 500.3400, L100.0100, L503.6620, L500.2500, L501.4020 ####[facility] [address] [place], [address] Urea nitrogen [Mass/Vol] 24 mg/dL High 7-18 [facility] Comment on above: Order Comment: 'TROP ' Serial specimen #1, #2 or #3: 1 Performed By: #### L 500.3400, L100.0100, L503.6620, L500.2500, L501.4020 ####[facility] [address] [place], [address] Basophil percentageOrdered B y: Valente Coleman on 08-18-2024 Basophils/100 WBC (Bld) 0.7 % 0-1 [facility] Basophil percentage 0.7 % 0-1 [facility] Bilirubin Test strip Ql (U)O rdered By: Valente Coleman on 08-18-2024 Bilirubin Ql (U) Negative Negative [facility] Bilirubin directOrdered By: Valente Coleman on 08-18-2024 Bilirubin.direct [Mass/Vol] 0.33 mg/dL High 0.00-0.30 [facility] Bilirubin, totalOrdered By: Valente Coleman on 08-18-2024 Bilirubin [Mass/Vol] 0.80 mg/dL 0.20-1.00 [facility] Bilirubin, total 0.80 mg/dL 0.20-1.00 [facility] Bilirubin.direct [Mass/Vol]O rdered By: Valente Coleman on 08-18-2024 Bilirubin direct 0.33 mg/dL High 0.00-0.30 [facility] Blood cultureOrdered By: Trevor Coleman on 08-18-2024 Bacteria identified Cx Nom (Bld) No growth in 5 days. [facility] Blood culture No growth in 5 days. [facility] Bacteria identified Cx Nom (Bld) No growth in 5 days. [facility] Blood culture No growth in 5 days. [facility] Blood urea nitrogen (BUN)/cr eatinine ratioOrdered By: Valente Coleman on 08-18-2024 Blood urea nitrogen (BUN)/creatinine ratio 19.4 RATIO 10-20 [facility] CBC W/Diff, Automatedon 07-22 Absolute Lymph 0.94 X10 3/uL Normal 0.83-4.51 [facility] Comment on above: Performed By: #### L 500.3400, L100.0100, L503.6620, L500.2500, L501.4020 ####[facility] [address] [place], [address] Absolute Neut 6.8 X10 3/uL Normal 2.0-7.7 [facility] Comment on above: Performed By: #### L 500.3400, L100.0100, L503.6620, L500.2500, L501.4020 ####[facility] [address] [place], [address] Basophils/100 WBC (Bld) 0.7 % Normal 0-1 [facility] Comment on above: Performed By: #### L 500.3400, L100.0100, L503.6620, L500.2500, L501.4020 ####[facility] [address] [place], [address] Eosinophils/100 WBC (Bld) 2.2 % Normal 0-5 [facility] Comment on above: Performed By: #### L 500.3400, L100.0100, L503.6620, L500.2500, L501.4020 ####[facility] [address] [place], [address] Erythrocyte distribution width (RBC) [Ratio] 13.2 % Normal 11.6-14.6 [facility] Comment on above: Performed By: #### L 500.3400, L100.0100, L503.6620, L500.2500, L501.4020 ####[facility] [address] [place], [address] Hematocrit (Bld) [Volume fraction] 33.2 % Low 40-54 [facility] Comment on above: Performed By: #### L 500.3400, L100.0100, L503.6620, L500.2500, L501.4020 ####[facility] [address] [place], [address] Hemoglobin (Bld) [Mass/Vol] 11.3 g/dL Low 13.0-16.5 [facility] Comment on above: Performed By: #### L 500.3400, L100.0100, L503.6620, L500.2500, L501.4020 ####[facility] [address] [place], [address] IG% 0.400 Normal 0.0-0.9 [facility] Comment on above: Result Comment: IG% - Immature Granulocytes (promyelocytes, myelocytes andmetamyelocytes) > 1% indicates that a LEFT SHIFT is Present. Performed By: #### L 500.3400, L100.0100, L503.6620, L500.2500, L501.4020 ####[facility] [address] [place], [address] Lymphocytes/100 WBC (Bld) 11.1 % Low 19-41 [facility] Comment on above: Performed By: #### L 500.3400, L100.0100, L503.6620, L500.2500, L501.4020 ####[facility] [address] [place], [address] MCH (RBC) [Entitic mass] 30.5 pg Normal 27.0-32.0 [facility] Comment on above: Performed By: #### L 500.3400, L100.0100, L503.6620, L500.2500, L501.4020 ####[facility] [address] [place], [address] MCHC (RBC) [Mass/Vol] 34.0 g/dL Normal 32-36 [facility] Comment on above: Performed By: #### L 500.3400, L100.0100, L503.6620, L500.2500, L501.4020 ####[facility] [address] [place], [address] MCV (RBC) [Entitic vol] 89.5 fL Normal 80-94 [facility] Comment on above: Performed By: #### L 500.3400, L100.0100, L503.6620, L500.2500, L501.4020 ####[facility] [address] [place], [address] Monocytes/100 WBC (Bld) 6.2 % Normal 0-10 [facility] Comment on above: Performed By: #### L 500.3400, L100.0100, L503.6620, L500.2500, L501.4020 ####[facility] [address] [place], [address] Neutrophils/100 WBC (Bld) 79.4 % High 47-70 [facility] Comment on above: Performed By: #### L 500.3400, L100.0100, L503.6620, L500.2500, L501.4020 ####[facility] [address] [place], [address] Nucleated RBC (Bld) [#/Vol] 0 10*3/uL Normal 0-5 [facility] Comment on above: Performed By: #### L 500.3400, L100.0100, L503.6620, L500.2500, L501.4020 ####[facility] [address] [place], [address] Platelet mean volume (Bld) [Entitic vol] 9.8 fL Normal 6.2-12.0 [facility] Comment on above: Performed By: #### L 500.3400, L100.0100, L503.6620, L500.2500, L501.4020 ####[facility] [address] [place], [address] Platelets (Bld) [#/Vol] 221 10*3/uL Normal 150-450 [facility] Comment on above: Performed By: #### L 500.3400, L100.0100, L503.6620, L500.2500, L501.4020 ####[facility] [address] [place], [address] RBC (Bld) [#/Vol] 3.71 10*6/uL Low 4.6-6.2 [facility] Comment on above: Performed By: #### L 500.3400, L100.0100, L503.6620, L500.2500, L501.4020 ####[facility] [address] [place], [address] RDW SD 42.5 fl Normal 35.1-43.9 [facility] Comment on above: Performed By: #### L 500.3400, L100.0100, L503.6620, L500.2500, L501.4020 ####[facility] [address] [place], [address] WBC (Bld) [#/Vol] 8.5 10*3/uL Normal 4.4-11.0 [facility] Comment on above: Performed By: #### L 500.3400, L100.0100, L503.6620, L500.2500, L501.4020 ####[facility] [address] [place], [address] Calcium [Mass/Vol]Ordered By : Valente Coleman on 08-18-2024 Serum or plasma calcium measurement (mass/volume) 9.2 mg/dL 8.5-10.1 [facility] Carbon dioxide measurementOr dered By: Valente Coleman on 08-18-2024 CO2 [Moles/Vol] 23.0 mmol/L 21.0-32.0 [facility] Carbon dioxide measurement 23.0 mmol/L 21.0-32.0 [facility] Chest 1 View (Portable)on Chest 1 View (Portable) Normal [facility] Chloride measurementOrdered By: Valente Coleman on 08-18-2024 Chloride [Moles/Vol] 97 mmol/L Low 98-107 [facility] Chloride measurement 97 mmol/L Low 98-107 [facility] Clarity (U)Ordered By: Hector Coleman on 08-18-2024 Urine clarity Clear Clear [facility] Color (U)Ordered By: Valente Coleman on 08-18-2024 Urine color determination Yellow Yellow [facility] Creatinine [Mass/Vol]Ordered By: Valente Coleman on 08-18-2024 Serum or plasma creatinine measurement (mass/volume) 1.24 mg/dL 0.70-1.30 [facility] Emergency Department Summary on 08-18-2024 Emergency Department Summary Normal [facility] Eosinophil percentageOrdered By: Valente Coleman on 08-18-2024 Eosinophils/100 WBC (Bld) 2.2 % 0-5 [facility] Eosinophil percentage 2.2 % 0-5 [facility] Erythrocyte distribution wid th (RBC) [Ratio]Ordered By: Valente Coleman on 08-18-2024 Erythrocyte distribution width ratio 13.2 % 11.6-14.6 [facility] Erythrocyte distribution wid th ratioOrdered By: Valente Coleman on 08-18-2024 Erythrocyte distribution width (RBC) [Ratio] 13.2 % 11.6-14.6 [facility] Erythrocyte distribution wid th standard deviationOrdered By: Valente Coleman on 08-18-2024 Erythrocyte distribution width (RBC) [Ratio] 42.5 fl 35.1-43.9 [facility] Erythrocyte distribution width standard deviation 42.5 fl 35.1-43.9 [facility] Estimated glomerular filtrat ion rate (GFR) AmericanOrdered By: Valente Coleman on 08-18-2024 Estimated glomerular filtration rate (GFR) 71 mL/min >60 [facility] Estimation of creatinine nasir aranceOrdered By: Valente Coleman on 08-18-2024 Estimation of creatinine clearance 54.14 ml/min [facility] Glomerular filtration rate ( GFR) estimationOrdered By: Valente Coleman on 08-18-2024 GFR/1.73 sq M.predicted among non-blacks MDRD (S/P/Bld) [Vol rate/Area] 59 mL/min/{1.73_m2} Low >60 [facility] Glomerular filtration rate (GFR) estimation 59 mL/min Low >60 [facility] Glucose measurementOrdered B y: Valente Coleman on 08-18-2024 Glucose [Mass/Vol] 120 mg/dL High 74-106 [facility] Glucose measurement 120 mg/dL High 74-106 [facility] Hematocrit Auto (Bld) [Volum e fraction]Ordered By: Valente Coleman on 08-18-2024 Hematocrit (Bld) [Volume fraction] 33.2 % Low 40-54 [facility] Automated blood hematocrit (percentage) 33.2 % Low 40-54 [facility] Hemoglobin measurementOrdere d By: Valente Coleman on 08-18-2024 Hemoglobin (Bld) [Mass/Vol] 11.3 g/dL Low 13.0-16.5 [facility] Hemoglobin measurement 11.3 g/dL Low 13.0-16.5 [facility] Immature granulocytes/100 WB C Auto (Bld)Ordered By: Valente Coleman on 08-18-2024 Immature granulocytes/100 WBC (Bld) 0.400 % 0.0-0.9 [facility] Automated immature granulocyte percentage 0.400 % 0.0-0.9 [facility] Ketones Test strip Ql (U)Ord ered By: Valente Coleman on 08-18-2024 Ketones Ql (U) Negative Negative [facility] L501.4020on 08-18-2024 TROPONIN-I HS 81 pg/mL High 3.0-78.0 [facility] Comment on above: Order Comment: 'TROP ' Serial specimen #1, #2 or #3: 1 Result Comment: [employer] Note: New Test Units and Gender Specific Reference Ranges. For more information see Policy Stat Procedure [place] High Sensitivity Troponin (TNIH) and attachments. Performed By: #### L 500.3400, L100.0100, L503.6620, L500.2500, L501.4020 ####[facility] [address] [place], [address] Liver Profileon 08-18-2024 Albumin [Mass/Vol] 2.9 g/dL Low 3.2-5.0 [facility] Comment on above: Order Comment: 'TROP ' Serial specimen #1, #2 or #3: 1 Performed By: #### L 500.3400, L100.0100, L503.6620, L500.2500, L501.4020 ####[facility] [address] [place], [address] ALK P 139 U/L High 45-117 [facility] Comment on above: Order Comment: 'TROP ' Serial specimen #1, #2 or #3: 1 Performed By: #### L 500.3400, L100.0100, L503.6620, L500.2500, L501.4020 ####[facility] [address] [place], [address] ALT [Catalytic activity/Vol] 22 U/L Normal 16-61 [facility] Comment on above: Order Comment: 'TROP ' Serial specimen #1, #2 or #3: 1 Performed By: #### L 500.3400, L100.0100, L503.6620, L500.2500, L501.4020 ####[facility] [address] [place], [address] AST [Catalytic activity/Vol] 25 U/L Normal 15-37 [facility] Comment on above: Order Comment: 'TROP ' Serial specimen #1, #2 or #3: 1 Performed By: #### L 500.3400, L100.0100, L503.6620, L500.2500, L501.4020 ####[facility] [address] [place], [address] Bilirubin [Mass/Vol] 0.80 mg/dL Normal 0.20-1.00 [facility] Comment on above: Order Comment: 'TROP ' Serial specimen #1, #2 or #3: 1 Result Comment: For patients on eltrombopag therapy, use of Dimension [place] TBIL is not recommended. Performed By: #### L 500.3400, L100.0100, L503.6620, L500.2500, L501.4020 ####[facility] [address] [place], [address] Bilirubin.direct [Mass/Vol] 0.33 mg/dL High 0.00-0.30 [facility] Comment on above: Order Comment: 'TROP ' Serial specimen #1, #2 or #3: 1 Performed By: #### L 500.3400, L100.0100, L503.6620, L500.2500, L501.4020 ####[facility] [address] [place], [address] Globulin (S) [Mass/Vol] 4.1 g/dL Normal 2.2-4.2 [facility] Comment on above: Order Comment: 'TROP ' Serial specimen #1, #2 or #3: 1 Performed By: #### L 500.3400, L100.0100, L503.6620, L500.2500, L501.4020 ####[facility] [address] [place], [address] T PROT 7.0 g/dL Normal 6.4-8.2 [facility] Comment on above: Order Comment: 'TROP ' Serial specimen #1, #2 or #3: 1 Performed By: #### L 500.3400, L100.0100, L503.6620, L500.2500, L501.4020 ####[facility] [address] [place], [place], [id number] Lymphocytes Auto (Unsp spec) [#/Vol]Ordered By: Valente Coleman on 08-18-2024 Absolute lymphocyte count 0.94 X10^3/uL 0.83-4.51 [facility] Lymphocytes/100 WBC Auto (Un sp spec)Ordered By: Valente Coleman on 08-18-2024 Automated lymphocyte count as percentage of total leukocytes 11.1 % Low 19-41 [facility] MCV (RBC) [Entitic vol]Order ed By: Valente Coleman on 08-18-2024 MCV (mean corpuscular volume) determination 89.5 fL 80-94 [facility] MCV (mean corpuscular volume ) determinationOrdered By: Valente Coleman on 08-18-2024 MCV (RBC) [Entitic vol] 89.5 fL 80-94 [facility] Mean corpuscular hemoglobin (MCH) determinationOrdered By: Valente Coleman on 08-18-2024 MCH (RBC) [Entitic mass] 30.5 pg 27.0-32.0 [facility] Mean corpuscular hemoglobin (MCH) determination 30.5 pg 27.0-32.0 [facility] Mean corpuscular hemoglobin concentration (MCHC) determinationOrdered By: Valente Coleman on 08-18-2024 Mean corpuscular hemoglobin concentration (MCHC) determination 34.0 g/dL 32-36 [facility] Mean platelet volume determi nationOrdered By: Valente Coleman on 08-18-2024 Mean platelet volume determination 9.8 fl 6.2-12.0 [facility] Monocyte percentageOrdered B y: Valente Coleman on 08-18-2024 Monocytes/100 WBC (Bld) 6.2 % 0-10 [facility] Monocyte percentage 6.2 % 0-10 [facility] Mucus LM Ql (Urine sed)Order ed By: Valente Coleman on 08-18-2024 Mucus Ql (Urine sed) 0 SEEN /hpf [facility] Neutrophil percentageOrdered By: Valente Coleman on 08-18-2024 Neutrophils/100 WBC (Bld) 79.4 % High 47-70 [facility] Neutrophil percentage 79.4 % High 47-70 [facility] Nitrite Test strip Ql (U)Ord ered By: Valente Coleman on 08-18-2024 Nitrite Ql (U) Negative Negative [facility] No Panel InformationOrdered By: Valente Coleman on 08-18-2024 25 U/L 15-37 [facility] Nucleated red blood cell per centageOrdered By: Valente Coleman on 08-18-2024 Nucleated red blood cell percentage 0 % 0-5 [facility] Platelet countOrdered By: Jose Armando Coleman on 08-18-2024 Platelets (Bld) [#/Vol] 221 10*3/uL 150-450 [facility] Platelet count 221 K/mm3 150-450 [facility] Potassium measurementOrdered By: Valente Coleman on 08-18-2024 Potassium [Moles/Vol] 3.9 mmol/L 3.5-5.1 [facility] Potassium measurement 3.9 mmol/L 3.5-5.1 [facility] Protein Test strip Ql (U)Ord ered By: Valente Coleman on 08-18-2024 Protein Ql (U) Negative Negative [facility] RBC Auto (Bld) [#/Vol]Ordere d By: Valente Coleman on 08-18-2024 RBC (Bld) [#/Vol] 3.71 10*6/uL Low 4.6-6.2 [facility] Automated blood erythrocyte count 3.71 M/mm3 Low 4.6-6.2 [facility] Serum anion gap measurementO rdered By: Valente Coleman on 08-18-2024 Serum anion gap measurement 9 5-15 [facility] Serum globulin measurementOr dered By: Valente Coleman on 08-18-2024 Globulin (S) [Mass/Vol] 4.1 g/dL 2.2-4.2 [facility] Serum globulin measurement 4.1 g/dL 2.2-4.2 [facility] Serum or plasma alanine alvarez otransferase (ALT) measurementOrdered By: Valente Coleman on 08-18-2024 ALT [Catalytic activity/Vol] 22 U/L 16-61 [facility] Serum or plasma albumin todd urement (mass/volume)Ordered By: Valente Coleman on 08-18-2024 Albumin [Mass/Vol] 2.9 g/dL Low 3.2-5.0 [facility] Serum or plasma alkaline miguel sphatase measurementOrdered By: Valente Coleman on 08-18-2024 ALP [Catalytic activity/Vol] 139 U/L High 45-117 [facility] Serum or plasma calcium todd urement (mass/volume)Ordered By: Valente Coleman on 08-18-2024 Calcium [Mass/Vol] 9.2 mg/dL 8.5-10.1 [facility] Serum or plasma creatinine m easurement (mass/volume)Ordered By: Valente Coleman on 08-18-2024 Creatinine [Mass/Vol] 1.24 mg/dL 0.70-1.30 [facility] Serum or plasma urea nitroge n measurement (mass/volume)Ordered By: Valente Coleman on 08-18-2024 Urea nitrogen [Mass/Vol] 24 mg/dL High 7-18 [facility] Sodium levelOrdered By: Jt Coleman on 08-18-2024 Sodium [Moles/Vol] 129 mmol/L Low 136-145 [facility] Sodium level 129 mmol/L Low 136-145 [facility] Specific gravity (U) [Rel de nsity]Ordered By: Valente Coleman on 08-18-2024 Urine specific gravity measurement 1.010 1.002-1.030 [facility] Squamous epithelial cells de tection in urine sediment by light microscopyOrdered By: Valente Coleman on 08-18-2024 Epithelial cells.squamous LM Ql (Urine sed) 0 SEEN /hpf 0-5 [facility] Total proteinOrdered By: Trevor Coleman on 08-18-2024 Protein [Mass/Vol] 7.0 g/dL 6.4-8.2 [facility] Total protein 7.0 g/dL 6.4-8.2 [facility] Troponin IOrdered By: Valente Cloeman on 08-18-2024 Troponin I 81 pg/mL High 3.0-78.0 [facility] Troponin I 81 pg/mL High 3.0-78.0 [facility] Urea nitrogen [Mass/Vol]Orde red By: Valente Coleman on 08-18-2024 Serum or plasma urea nitrogen measurement (mass/volume) 24 mg/dL High 7-18 [facility] Urgent Care Visit Reporton 0 08-18-2024 Urgent Care Visit Report Normal [facility] Urinalysis, Completeon 08-18 BACTERIA 0 SEEN Normal None Seen [facility] Comment on above: Order Comment: CLEAN CATCH Performed By: #### L 400.0001 ####[facility] [address] [place], [address] EPI,SQUAMOUS 0 SEEN Normal [address] [place] [address] Comment on above: Order Comment: CLEAN CATCH Performed By: #### L 400.0001 ####[facility] [address] [place], [address] Mucus Ql (Urine sed) 0 SEEN Normal [facility] Comment on above: Order Comment: CLEAN CATCH Performed By: #### L 400.0001 ####[facility] [address] [place], [address] RBC 0 SEEN Normal [address] [place] [address] Comment on above: Order Comment: CLEAN CATCH Performed By: #### L 400.0001 ####[facility] [address] [place], [address] WBC 0 SEEN Normal [address] [place] [address] Comment on above: Order Comment: CLEAN CATCH Performed By: #### L 400.0001 ####[facility] [address] [place], [address] Urine clarityOrdered By: Trevor Coleman on 08-18-2024 Clarity (U) Clear Clear [facility] Urine color determinationOrd ered By: Valente Coleman on 08-18-2024 Color (U) Yellow Yellow [facility] Urine glucose detectionOrder ed By: Valente Coleman on 08-18-2024 Glucose Ql (U) Normal mg/dl Normal [facility] Urine glucose detection Normal mg/dl Normal [facility] Urine leukocyte esterase det ection by dipstickOrdered By: Valente Coleman on 08-18-2024 Leukocyte esterase Test strip Ql (U) Negative Negative [facility] Urine pHOrdered By: Valente camacho on 08-18-2024 pH (U) 7.0 [pH] 5.0 - 8.0 [facility] Urine sediment bacteria coun t by microscopy (number/high power field)Ordered By: Valente Coleman on 08-18-2024 Bacteria LM.HPF (Urine sed) [#/Area] 0 /[HPF] None Seen [facility] Urine specific gravity measu rementOrdered By: Valente Coleman on 08-18-2024 Specific gravity (U) [Rel density] 1.010 1.002-1.030 [facility] Urine total bilirubin detect ion by test stripOrdered By: Valente Coleman on 08-18-2024 Urine total bilirubin detection by test strip Negative Negative [facility] Urine urobilinogen measureme ntOrdered By: Valente Coleman on 08-18-2024 Urobilinogen Ql (U) Normal mg/dl Normal [facility] Venous Duplex Imag/Limited/U nion 08-18-2024 Venous Duplex Imag/Limited/Uni Normal [facility] White blood cell (WBC) count Ordered By: Valente Coleman on 08-18-2024 WBC (Bld) [#/Vol] 8.5 10*3/uL 4.4-11.0 [facility] White blood cell (WBC) count 8.5 K/mm3 4.4-11.0 [facility] White blood cell countOrdere d By: Valente Cloeman on 08-18-2024 White blood cell count 0 SEEN /hpf 0-5 [facility] White blood cell count 0 SEEN /hpf [facility] pH (U)Ordered By: Valente roberts on 08-18-2024 Urine pH 7.0 5.0 - 8.0 [facility] Orthopedic Visit Reporton Orthopedic Visit Report Normal [facility] Basic Metabolic Profile (BMP )on 08-09-2024 BUN/CRE 20.9 RATIO High - [facility] Comment on above: Performed By: #### L 501.5200, L500.2500 ####[facility] [address] [place], [address] CA,Total 8.9 mg/dL Normal 8.5-10.1 [facility] Comment on above: Performed By: #### L 501.5200, L500.2500 ####[facility] [address] [place], [address] Chloride [Moles/Vol] 96 mmol/L Low 98-107 [facility] Comment on above: Performed By: #### L 501.5200, L500.2500 ####[facility] [address] [place], [address] CO2 [Moles/Vol] 25.0 mmol/L Normal 21.0-32.0 [facility] Comment on above: Performed By: #### L 501.5200, L500.2500 ####[facility] [address] [place], [address] Creatinine [Mass/Vol] 1.15 mg/dL Normal 0.70-1.30 [facility] Comment on above: Result Comment: The validity of the calculated GFR GFRAA in patients over70 years has not been determined. Clinical correlation isessential. Performed By: #### L 501.5200, L500.2500 ####[facility] [address] [place], [address] EST GFR - AA 77 mL/min Normal >60 [facility] Comment on above: Result Comment: Afri can Grenadian GFR Calc Performed By: #### L 501.5200, L500.2500 ####[facility] [address] [place], [address] GAP 9 Normal 5-15 [facility] Comment on above: Performed By: #### L 501.5200, L500.2500 ####[facility] [address] [place], [address] GFR/1.73 sq M.predicted among non-blacks MDRD (S/P/Bld) [Vol rate/Area] 64 mL/min/{1.73_m2} Normal >60 [facility] Comment on above: Result Comment: Non- GFR Calc Performed By: #### L 501.5200, L500.2500 ####[facility] [address] [place], [address] Glucose [Mass/Vol] 64 mg/dL Low 74-106 [facility] Comment on above: Performed By: #### L 501.5200, L500.2500 ####[facility] [address] [place], [address] Potassium [Moles/Vol] 4.3 mmol/L Normal 3.5-5.1 [facility] Comment on above: Performed By: #### L 501.5200, L500.2500 ####[facility] [address] [place], [address] Sodium [Moles/Vol] 130 mmol/L Low 136-145 [facility] Comment on above: Performed By: #### L 501.5200, L500.2500 ####[facility] [address] [place], [address] Urea nitrogen [Mass/Vol] 24 mg/dL High 7-18 [facility] Comment on above: Performed By: #### L 501.5200, L500.2500 ####[facility] [address] [place], [address] Blood urea nitrogen (BUN)/cr eatinine ratioOrdered By: La Woods on 08-09-2024 Blood urea nitrogen (BUN)/creatinine ratio 20.9 RATIO High 10-20 [facility] Calcium [Mass/Vol]Ordered By : La Woods on 08-09-2024 Serum or plasma calcium measurement (mass/volume) 8.9 mg/dL 8.5-10.1 [facility] Carbon dioxide measurementOr dered By: La Woods on 08-09-2024 CO2 [Moles/Vol] 25.0 mmol/L 21.0-32.0 [facility] Carbon dioxide measurement 25.0 mmol/L 21.0-32.0 [facility] Chloride measurementOrdered By: La Woods on 08-09-2024 Chloride [Moles/Vol] 96 mmol/L Low 98-107 [facility] Chloride measurement 96 mmol/L Low 98-107 [facility] Creatinine [Mass/Vol]Ordered By: La Woods on 08-09-2024 Serum or plasma creatinine measurement (mass/volume) 1.15 mg/dL 0.70-1.30 [facility] Estimated glomerular filtrat ion rate (GFR) AmericanOrdered By: La Woods on 08-09-2024 Estimated glomerular filtration rate (GFR) 77 mL/min >60 [facility] Glomerular filtration rate ( GFR) estimationOrdered By: La Woods on 08-09-2024 GFR/1.73 sq M.predicted among non-blacks MDRD (S/P/Bld) [Vol rate/Area] 64 mL/min/{1.73_m2} >60 [facility] Glomerular filtration rate (GFR) estimation 64 mL/min >60 [facility] Glucose measurementOrdered B y: La Woods on 08-09-2024 Glucose [Mass/Vol] 64 mg/dL Low 74-106 [facility] Glucose measurement 64 mg/dL Low 74-106 [facility] MR/BMS.IMBon 08-09-2024 MR/BMS.IMB Normal [facility] Magnesiumon 08-09-2024 Magnesium [Mass/Vol] 2.0 mg/dL Normal 1.6-2.6 [facility] Comment on above: Performed By: #### L 501.5200, L500.2500 ####[facility] [address] [place], [address] Magnesium measurementOrdered By: La Woods on 08-09-2024 Magnesium [Mass/Vol] 2.0 mg/dL 1.6-2.6 [facility] Magnesium measurement 2.0 mg/dL 1.6-2.6 [facility] Potassium measurementOrdered By: La Woods on 08-09-2024 Potassium [Moles/Vol] 4.3 mmol/L 3.5-5.1 [facility] Potassium measurement 4.3 mmol/L 3.5-5.1 [facility] Serum anion gap measurementO rdered By: La Woods on 08-09-2024 Serum anion gap measurement 9 5-15 [facility] Serum or plasma calcium todd urement (mass/volume)Ordered By: La Woods on 08-09-2024 Calcium [Mass/Vol] 8.9 mg/dL 8.5-10.1 [facility] Serum or plasma creatinine m easurement (mass/volume)Ordered By: La Woods on 08-09-2024 Creatinine [Mass/Vol] 1.15 mg/dL 0.70-1.30 [facility] Serum or plasma urea nitroge n measurement (mass/volume)Ordered By: La Woods on 08-09-2024 Urea nitrogen [Mass/Vol] 24 mg/dL High 7-18 [facility] Sodium levelOrdered By: Zora Woods on 08-09-2024 Sodium [Moles/Vol] 130 mmol/L Low 136-145 [facility] Sodium level 130 mmol/L Low 136-145 [facility] Urea nitrogen [Mass/Vol]Orde red By: La Woods on 08-09-2024 Serum or plasma urea nitrogen measurement (mass/volume) 24 mg/dL High 7-18 [facility] Absolute lymphocyte countOrd ered By: Yayo Esquivel on 08-03-2024 Lymphocytes Auto (Unsp spec) [#/Vol] 0.46 10*3/uL Low 0.83-4.51 [facility] Absolute neutrophil countOrd ered By: Yayo Esquivel on 08-03-2024 Absolute neutrophil count 8.4 X10^3/uL High 2.0-7.7 [facility] Automated lymphocyte count a s percentage of total leukocytesOrdered By: Yayo Esquivel on 08-03-2024 Lymphocytes/100 WBC Auto (Unsp spec) 4.9 % Low 19-41 [facility] Basic Metabolic Profile (BMP )on 08-03-2024 BUN/CRE 34.4 RATIO High 10-20 [facility] Comment on above: Performed By: #### L 100.0100, L500.2500 ####[facility] [address] [place], [address] CA,Total 8.7 mg/dL Normal 8.5-10.1 [facility] Comment on above: Performed By: #### L 100.0100, L500.2500 ####[facility] [address] [place], [address] Chloride [Moles/Vol] 103 mmol/L Normal 98-107 [facility] Comment on above: Performed By: #### L 100.0100, L500.2500 ####[facility] [address] [place], [address] CO2 [Moles/Vol] 21.0 mmol/L Normal 21.0-32.0 [facility] Comment on above: Performed By: #### L 100.0100, L500.2500 ####[facility] [address] [place], [address] Creatinine [Mass/Vol] 1.22 mg/dL Normal 0.70-1.30 [facility] Comment on above: Result Comment: The validity of the calculated GFR GFRAA in patients over70 years has not been determined. Clinical correlation isessential. Performed By: #### L 100.0100, L500.2500 ####[facility] [address] [place], [address] ECRCL 55.22 ml/min Normal [facility] Comment on above: Performed By: #### L 100.0100, L500.2500 ####[facility] [address] [place], [address] EST GFR - AA 72 mL/min Normal >60 [facility] Comment on above: Result Comment: Afri can Gren[place] GFR Calc Performed By: #### L 100.0100, L500.2500 ####[facility] [address] [place], [address] GAP 7 Normal 5-15 [facility] Comment on above: Performed By: #### L 100.0100, L500.2500 ####[facility] [address] [place], [address] GFR/1.73 sq M.predicted among non-blacks MDRD (S/P/Bld) [Vol rate/Area] 60 mL/min/{1.73_m2} Normal >60 [facility] Comment on above: Result Comment: Non- GFR Calc Performed By: #### L 100.0100, L500.2500 ####[facility] [address] [place], [address] Glucose [Mass/Vol] 153 mg/dL High 74-106 [facility] Comment on above: Result Comment: Fast ing Glucose result greater than or equal to 126 mg/dLsuggests DIABETES MELLITUS per A.D.A. criteria. Performed By: #### L 100.0100, L500.2500 ####[facility] [address] [place], [address] Potassium [Moles/Vol] 4.2 mmol/L Normal 3.5-5.1 [facility] Comment on above: Performed By: #### L 100.0100, L500.2500 ####[facility] [address] [place], [address] Sodium [Moles/Vol] 131 mmol/L Low 136-145 [facility] Comment on above: Performed By: #### L 100.0100, L500.2500 ####[facility] [address] [place], [address] Urea nitrogen [Mass/Vol] 42 mg/dL High 7-18 [facility] Comment on above: Performed By: #### L 100.0100, L500.2500 ####[facility] [address] [place], [address] Basophil percentageOrdered B y: Yayo Esquivel on 08-03-2024 Basophils/100 WBC (Bld) 0.1 % 0-1 [facility] Basophil percentage 0.1 % 0-1 [facility] Blood urea nitrogen (BUN)/cr eatinine ratioOrdered By: Yayo Esquivel on 08-03-2024 Blood urea nitrogen (BUN)/creatinine ratio 34.4 RATIO High 10-20 [facility] CBC W/Diff, Automatedon 07-21 Absolute Lymph 0.46 X10 3/uL Low 0.83-4.51 [facility] Comment on above: Performed By: #### L 100.0100, L500.2500 ####[facility] [address] [place], [address] Absolute Neut 8.4 X10 3/uL High 2.0-7.7 [facility] Comment on above: Performed By: #### L 100.0100, L500.2500 ####[facility] [address] [place], [address] Basophils/100 WBC (Bld) 0.1 % Normal 0-1 [facility] Comment on above: Performed By: #### L 100.0100, L500.2500 ####[facility] [address] [place], [address] Eosinophils/100 WBC (Bld) 0.0 % Normal 0-5 [facility] Comment on above: Performed By: #### L 100.0100, L500.2500 ####[facility] [address] [place], [address] Erythrocyte distribution width (RBC) [Ratio] 12.7 % Normal 11.6-14.6 [facility] Comment on above: Performed By: #### L 100.0100, L500.2500 ####[facility] [address] [place], [address] Hematocrit (Bld) [Volume fraction] 30.9 % Low 40-54 [facility] Comment on above: Performed By: #### L 100.0100, L500.2500 ####[facility] [address] [place], [address] Hemoglobin (Bld) [Mass/Vol] 10.7 g/dL Low 13.0-16.5 [facility] Comment on above: Performed By: #### L 100.0100, L500.2500 ####[facility] [address] [place], [address] IG% 0.900 Normal 0.0-0.9 [facility] Comment on above: Result Comment: IG% - Immature Granulocytes (promyelocytes, myelocytes andmetamyelocytes) > 1% indicates that a LEFT SHIFT is Present. Performed By: #### L 100.0100, L500.2500 ####[facility] [address] [place], [address] Lymphocytes/100 WBC (Bld) 4.9 % Low 19-41 [facility] Comment on above: Performed By: #### L 100.0100, L500.2500 ####[facility] [address] [place], [address] MCH (RBC) [Entitic mass] 30.4 pg Normal 27.0-32.0 [facility] Comment on above: Performed By: #### L 100.0100, L500.2500 ####[facility] [address] [place], [address] MCHC (RBC) [Mass/Vol] 34.6 g/dL Normal 32-36 [facility] Comment on above: Performed By: #### L 100.0100, L500.2500 ####[facility] [address] [place], [address] MCV (RBC) [Entitic vol] 87.8 fL Normal 80-94 [facility] Comment on above: Performed By: #### L 100.0100, L500.2500 ####[facility] [address] [place], [address] Monocytes/100 WBC (Bld) 3.9 % Normal 0-10 [facility] Comment on above: Performed By: #### L 100.0100, L500.2500 ####[facility] [address] [place], [address] Neutrophils/100 WBC (Bld) 90.2 % High 47-70 [facility] Comment on above: Performed By: #### L 100.0100, L500.2500 ####[facility] [address] [place], [address] Nucleated RBC (Bld) [#/Vol] 0 10*3/uL Normal 0-5 [facility] Comment on above: Performed By: #### L 100.0100, L500.2500 ####[facility] [address] [place], [address] Platelet mean volume (Bld) [Entitic vol] 9.9 fL Normal 6.2-12.0 [facility] Comment on above: Performed By: #### L 100.0100, L500.2500 ####[facility] [address] [place], [address] Platelets (Bld) [#/Vol] 272 10*3/uL Normal 150-450 [facility] Comment on above: Performed By: #### L 100.0100, L500.2500 ####[facility] [address] [place], [address] RBC (Bld) [#/Vol] 3.52 10*6/uL Low 4.6-6.2 [facility] Comment on above: Performed By: #### L 100.0100, L500.2500 ####[facility] [address] [place], [address] RDW SD 40.7 fl Normal 35.1-43.9 [facility] Comment on above: Performed By: #### L 100.0100, L500.2500 ####[facility] [address] [place], [address] WBC (Bld) [#/Vol] 9.3 10*3/uL Normal 4.4-11.0 [facility] Comment on above: Performed By: #### L 100.0100, L500.2500 ####[facility] [address] [place], [address] Calcium [Mass/Vol]Ordered By : Yayo Esquivel on 08-03-2024 Serum or plasma calcium measurement (mass/volume) 8.7 mg/dL 8.5-10.1 [facility] Carbon dioxide measurementOr dered By: Yayo Esquivel on 08-03-2024 CO2 [Moles/Vol] 21.0 mmol/L 21.0-32.0 [facility] Carbon dioxide measurement 21.0 mmol/L 21.0-32.0 [facility] Chloride measurementOrdered By: Yayo Esquivel on 08-03-2024 Chloride [Moles/Vol] 103 mmol/L 98-107 [facility] Chloride measurement 103 mmol/L 98-107 [facility] Creatinine [Mass/Vol]Ordered By: Yayo Esquivel on 08-03-2024 Serum or plasma creatinine measurement (mass/volume) 1.22 mg/dL 0.70-1.30 [facility] Discharge Instructionon 07-21 Discharge Instruction Normal [facility] Eosinophil percentageOrdered By: Yayo Esquivel on 08-03-2024 Eosinophils/100 WBC (Bld) 0.0 % 0-5 [facility] Eosinophil percentage 0.0 % 0-5 [facility] Erythrocyte distribution wid th (RBC) [Ratio]Ordered By: Yayo Esquivel on 08-03-2024 Erythrocyte distribution width ratio 12.7 % 11.6-14.6 [facility] Erythrocyte distribution wid th ratioOrdered By: Yayo Esquivel on 08-03-2024 Erythrocyte distribution width (RBC) [Ratio] 12.7 % 11.6-14.6 [facility] Erythrocyte distribution wid th standard deviationOrdered By: Yayo Esquivel on 08-03-2024 Erythrocyte distribution width (RBC) [Ratio] 40.7 fl 35.1-43.9 [facility] Erythrocyte distribution width standard deviation 40.7 fl 35.1-43.9 [facility] Estimated glomerular filtrat ion rate (GFR) AmericanOrdered By: Yayo Esquivel on 08-03-2024 Estimated glomerular filtration rate (GFR) 72 mL/min >60 [facility] Estimation of creatinine nasir aranceOrdered By: Yayo Esquivel on 08-03-2024 Estimation of creatinine clearance 55.22 ml/min [facility] Glomerular filtration rate ( GFR) estimationOrdered By: Yayo Esquivel on 08-03-2024 GFR/1.73 sq M.predicted among non-blacks MDRD (S/P/Bld) [Vol rate/Area] 60 mL/min/{1.73_m2} >60 [facility] Glomerular filtration rate (GFR) estimation 60 mL/min >60 [facility] Glucose measurementOrdered B y: Yayo Esquivel on 08-03-2024 Glucose [Mass/Vol] 153 mg/dL High 74-106 [facility] Glucose measurement 153 mg/dL High 74-106 [facility] Hematocrit Auto (Bld) [Volum e fraction]Ordered By: Yayo Esquivel on 08-03-2024 Hematocrit (Bld) [Volume fraction] 30.9 % Low 40-54 [facility] Automated blood hematocrit (percentage) 30.9 % Low 40-54 [facility] Hemoglobin measurementOrdere d By: Yayo Esquivel on 08-03-2024 Hemoglobin (Bld) [Mass/Vol] 10.7 g/dL Low 13.0-16.5 [facility] Hemoglobin measurement 10.7 g/dL Low 13.0-16.5 [facility] Immature granulocytes/100 WB C Auto (Bld)Ordered By: Yayo Esquivel on 08-03-2024 Immature granulocytes/100 WBC (Bld) 0.900 % 0.0-0.9 [facility] Automated immature granulocyte percentage 0.900 % 0.0-0.9 [facility] Lymphocytes Auto (Unsp spec) [#/Vol]Ordered By: Yayo Esquivel on 08-03-2024 Absolute lymphocyte count 0.46 X10^3/uL Low 0.83-4.51 [facility] Lymphocytes/100 WBC Auto (Un sp spec)Ordered By: Yayo Esquivel on 08-03-2024 Automated lymphocyte count as percentage of total leukocytes 4.9 % Low 19-41 [facility] MCV (RBC) [Entitic vol]Order ed By: Yayo Eqsuivel on 08-03-2024 MCV (mean corpuscular volume) determination 87.8 fL 80-94 [facility] MCV (mean corpuscular volume ) determinationOrdered By: Yayo Esquivel on 08-03-2024 MCV (RBC) [Entitic vol] 87.8 fL 80-94 [facility] Mean corpuscular hemoglobin (MCH) determinationOrdered By: Yayo Esquivel on 08-03-2024 MCH (RBC) [Entitic mass] 30.4 pg 27.0-32.0 [facility] Mean corpuscular hemoglobin (MCH) determination 30.4 pg 27.0-32.0 [facility] Mean corpuscular hemoglobin concentration (MCHC) determinationOrdered By: Yayo Esquivel on 08-03-2024 Mean corpuscular hemoglobin concentration (MCHC) determination 34.6 g/dL 32-36 [facility] Mean platelet volume determi nationOrdered By: Yayo Esquivel on 08-03-2024 Mean platelet volume determination 9.9 fl 6.2-12.0 [facility] Monocyte percentageOrdered B y: Yayo Esquivel on 08-03-2024 Monocytes/100 WBC (Bld) 3.9 % 0-10 [facility] Monocyte percentage 3.9 % 0-10 [facility] Neutrophil percentageOrdered By: Yayo Esquivel on 08-03-2024 Neutrophils/100 WBC (Bld) 90.2 % High 47-70 [facility] Neutrophil percentage 90.2 % High 47-70 [facility] Nucleated red blood cell per centageOrdered By: Yayo Esquivel on 08-03-2024 Nucleated red blood cell percentage 0 % 0-5 [facility] Platelet countOrdered By: Jose Armando Esquivel on 08-03-2024 Platelets (Bld) [#/Vol] 272 10*3/uL 150-450 [facility] Platelet count 272 K/mm3 150-450 [facility] Potassium measurementOrdered By: Yayo Esquivel on 08-03-2024 Potassium [Moles/Vol] 4.2 mmol/L 3.5-5.1 [facility] Potassium measurement 4.2 mmol/L 3.5-5.1 [facility] RBC Auto (Bld) [#/Vol]Ordere d By: Yayo Esquivel on 08-03-2024 RBC (Bld) [#/Vol] 3.52 10*6/uL Low 4.6-6.2 [facility] Automated blood erythrocyte count 3.52 M/mm3 Low 4.6-6.2 [facility] Serum anion gap measurementO rdered By: Yayo Esquivel on 08-03-2024 Serum anion gap measurement 7 5-15 [facility] Serum or plasma calcium todd urement (mass/volume)Ordered By: Yayo Esquivel on 08-03-2024 Calcium [Mass/Vol] 8.7 mg/dL 8.5-10.1 [facility] Serum or plasma creatinine m easurement (mass/volume)Ordered By: Yayo Esquivel on 08-03-2024 Creatinine [Mass/Vol] 1.22 mg/dL 0.70-1.30 [facility] Serum or plasma urea nitroge n measurement (mass/volume)Ordered By: Yayo Esquivel on 08-03-2024 Urea nitrogen [Mass/Vol] 42 mg/dL High 7-18 [facility] Sodium levelOrdered By: Shekhar Esquivel on 08-03-2024 Sodium [Moles/Vol] 131 mmol/L Low 136-145 [facility] Sodium level 131 mmol/L Low 136-145 [facility] Urea nitrogen [Mass/Vol]Orde red By: Yayo Esquivel on 08-03-2024 Serum or plasma urea nitrogen measurement (mass/volume) 42 mg/dL High - [facility] White blood cell (WBC) count Ordered By: Yayo Esquivel on 08-03-2024 WBC (Bld) [#/Vol] 9.3 10*3/uL 4.4-11.0 [facility] White blood cell (WBC) count 9.3 K/mm3 4.4-11.0 [facility] Basic Metabolic Profile (BMP )on 08-02-2024 BUN/CRE 36.1 RATIO High 10-20 [facility] Comment on above: Performed By: #### L 100.0100, L500.2500 ####[facility] [address] [place], [address] CA,Total 8.7 mg/dL Normal 8.5-10.1 [facility] Comment on above: Performed By: #### L 100.0100, L500.2500 ####[facility] [address] [place], [address] Chloride [Moles/Vol] 104 mmol/L Normal 98-107 [facility] Comment on above: Performed By: #### L 100.0100, L500.2500 ####[facility] [address] [place], [address] CO2 [Moles/Vol] 19.0 mmol/L Low 21.0-32.0 [facility] Comment on above: Performed By: #### L 100.0100, L500.2500 ####[facility] [address] [place], [address] Creatinine [Mass/Vol] 1.19 mg/dL Normal 0.70-1.30 [facility] Comment on above: Result Comment: The validity of the calculated GFR GFRAA in patients over70 years has not been determined. Clinical correlation isessential. Performed By: #### L 100.0100, L500.2500 ####[facility] [address] [place], [address] ECRCL 56.59 ml/min Normal [facility] Comment on above: Performed By: #### L 100.0100, L500.2500 ####[facility] [address] [place], [address] EST GFR - AA 74 mL/min Normal >60 [facility] Comment on above: Result Comment: Afri can Gren[place] GFR Calc Performed By: #### L 100.0100, L500.2500 ####[facility] [address] [place], [address] GAP 8 Normal 5-15 [facility] Comment on above: Performed By: #### L 100.0100, L500.2500 ####[facility] [address] [place], [address] GFR/1.73 sq M.predicted among non-blacks MDRD (S/P/Bld) [Vol rate/Area] 61 mL/min/{1.73_m2} Normal >60 [facility] Comment on above: Result Comment: Non- GFR Calc Performed By: #### L 100.0100, L500.2500 ####[facility] [address] [place], [address] Glucose [Mass/Vol] 165 mg/dL High 74-106 [facility] Comment on above: Result Comment: Fast ing Glucose result greater than or equal to 126 mg/dLsuggests DIABETES MELLITUS per A.D.A. criteria. Performed By: #### L 100.0100, L500.2500 ####[facility] [address] [place], [address] Potassium [Moles/Vol] 4.0 mmol/L Normal 3.5-5.1 [facility] Comment on above: Performed By: #### L 100.0100, L500.2500 ####[facility] [address] [place], [address] Sodium [Moles/Vol] 131 mmol/L Low 136-145 [facility] Comment on above: Performed By: #### L 100.0100, L500.2500 ####[facility] [address] [place], [address] Urea nitrogen [Mass/Vol] 43 mg/dL High 7-18 [facility] Comment on above: Performed By: #### L 100.0100, L500.2500 ####[facility] [address] [place], [address] CBC W/Diff, Automatedon 01-07 23-2024 Absolute Lymph 0.41 X10 3/uL Low 0.83-4.51 [facility] Comment on above: Performed By: #### L 100.0100, L500.2500 ####[facility] [address] [place], [address] Absolute Neut 9.4 X10 3/uL High 2.0-7.7 [facility] Comment on above: Performed By: #### L 100.0100, L500.2500 ####[facility] [address] [place], [address] Basophils/100 WBC (Bld) 0.2 % Normal 0-1 [facility] Comment on above: Performed By: #### L 100.0100, L500.2500 ####[facility] [address] [place], [address] Eosinophils/100 WBC (Bld) 0.1 % Normal 0-5 [facility] Comment on above: Performed By: #### L 100.0100, L500.2500 ####[facility] [address] [place], [address] Erythrocyte distribution width (RBC) [Ratio] 12.6 % Normal 11.6-14.6 [facility] Comment on above: Performed By: #### L 100.0100, L500.2500 ####[facility] [address] [place], [address] Hematocrit (Bld) [Volume fraction] 29.8 % Low 40-54 [facility] Comment on above: Performed By: #### L 100.0100, L500.2500 ####[facility] [address] [place], [address] Hemoglobin (Bld) [Mass/Vol] 10.5 g/dL Low 13.0-16.5 [facility] Comment on above: Performed By: #### L 100.0100, L500.2500 ####[facility] [address] [place], [address] IG% 1.000 High 0.0-0.9 [facility] Comment on above: Result Comment: IG% - Immature Granulocytes (promyelocytes, myelocytes andmetamyelocytes) > 1% indicates that a LEFT SHIFT is Present. Performed By: #### L 100.0100, L500.2500 ####[facility] [address] [place], [address] Lymphocytes/100 WBC (Bld) 4.0 % Low 19-41 [facility] Comment on above: Performed By: #### L 100.0100, L500.2500 ####[facility] [address] [place], [address] MCH (RBC) [Entitic mass] 30.7 pg Normal 27.0-32.0 [facility] Comment on above: Performed By: #### L 100.0100, L500.2500 ####[facility] [address] [place], [address] MCHC (RBC) [Mass/Vol] 35.2 g/dL Normal 32-36 [facility] Comment on above: Performed By: #### L 100.0100, L500.2500 ####[facility] [address] [place], [address] MCV (RBC) [Entitic vol] 87.1 fL Normal 80-94 [facility] Comment on above: Performed By: #### L 100.0100, L500.2500 ####[facility] [address] [place], [address] Monocytes/100 WBC (Bld) 2.6 % Normal 0-10 [facility] Comment on above: Performed By: #### L 100.0100, L500.2500 ####[facility] [address] [place], [address] Neutrophils/100 WBC (Bld) 92.1 % High 47-70 [facility] Comment on above: Performed By: #### L 100.0100, L500.2500 ####[facility] [address] [place], [address] Nucleated RBC (Bld) [#/Vol] 0 10*3/uL Normal 0-5 [facility] Comment on above: Performed By: #### L 100.0100, L500.2500 ####[facility] [address] [place], [address] Platelet mean volume (Bld) [Entitic vol] 11.5 fL Normal 6.2-12.0 [facility] Comment on above: Performed By: #### L 100.0100, L500.2500 ####[facility] [address] [place], [address] Platelets (Bld) [#/Vol] 190 10*3/uL Normal 150-450 [facility] Comment on above: Performed By: #### L 100.0100, L500.2500 ####[facility] [address] [place], [address] RBC (Bld) [#/Vol] 3.42 10*6/uL Low 4.6-6.2 [facility] Comment on above: Performed By: #### L 100.0100, L500.2500 ####[facility] [address] [place], [address] RDW SD 40.0 fl Normal 35.1-43.9 [facility] Comment on above: Performed By: #### L 100.0100, L500.2500 ####[facility] [address] [place], [address] WBC (Bld) [#/Vol] 10.2 10*3/uL Normal 4.4-11.0 [facility] Comment on above: Performed By: #### L 100.0100, L500.2500 ####[facility] [address] [place], [address] Urine Cultureon 08-02-2024 URC Normal [facility] Comment on above: Performed By: #### M 100.2200 ####[facility] [address] [place], [address] Basic Metabolic Profile (BMP )on 08-01-2024 BUN/CRE 33.0 RATIO High 10-20 [facility] Comment on above: Performed By: #### L 500.2500, L100.0100, L501.9520, L501.2300, L501.5200 ####[facility] [address] [place], [address] CA,Total 8.8 mg/dL Normal 8.5-10.1 [facility] Comment on above: Performed By: #### L 500.2500, L100.0100, L501.9520, L501.2300, L501.5200 ####[facility] [address] [place], [address] Chloride [Moles/Vol] 102 mmol/L Normal 98-107 [facility] Comment on above: Performed By: #### L 500.2500, L100.0100, L501.9520, L501.2300, L501.5200 ####[facility] [address] [place], [address] CO2 [Moles/Vol] 22.0 mmol/L Normal 21.0-32.0 [facility] Comment on above: Performed By: #### L 500.2500, L100.0100, L501.9520, L501.2300, L501.5200 ####[facility] [address] [place], [address] Creatinine [Mass/Vol] 1.15 mg/dL Normal 0.70-1.30 [facility] Comment on above: Result Comment: The validity of the calculated GFR GFRAA in patients over70 years has not been determined. Clinical correlation isessential. Performed By: #### L 500.2500, L100.0100, L501.9520, L501.2300, L501.5200 ####[facility] [address] [place], [address] ECRCL 58.45 ml/min Normal [facility] Comment on above: Performed By: #### L 500.2500, L100.0100, L501.9520, L501.2300, L501.5200 ####[facility] [address] [place], [address] EST GFR - AA 77 mL/min Normal >60 [facility] Comment on above: Result Comment: Afri can [place] GFR Calc Performed By: #### L 500.2500, L100.0100, L501.9520, L501.2300, L501.5200 ####[facility] [address] [place], [address] GAP 5 Normal 5-15 [facility] Comment on above: Performed By: #### L 500.2500, L100.0100, L501.9520, L501.2300, L501.5200 ####[facility] [address] [place], [address] GFR/1.73 sq M.predicted among non-blacks MDRD (S/P/Bld) [Vol rate/Area] 64 mL/min/{1.73_m2} Normal >60 [facility] Comment on above: Result Comment: Non- GFR Calc Performed By: #### L 500.2500, L100.0100, L501.9520, L501.2300, L501.5200 ####[facility] [address] [place], [address] Glucose [Mass/Vol] 186 mg/dL High 74-106 [facility] Comment on above: Result Comment: Fast ing Glucose result greater than or equal to 126 mg/dLsuggests DIABETES MELLITUS per A.D.A. criteria. Performed By: #### L 500.2500, L100.0100, L501.9520, L501.2300, L501.5200 ####[facility] [address] [place], [address] Potassium [Moles/Vol] 4.1 mmol/L Normal 3.5-5.1 [facility] Comment on above: Performed By: #### L 500.2500, L100.0100, L501.9520, L501.2300, L501.5200 ####[facility] [address] [place], [address] Sodium [Moles/Vol] 129 mmol/L Low 136-145 [facility] Comment on above: Performed By: #### L 500.2500, L100.0100, L501.9520, L501.2300, L501.5200 ####[facility] [address] [place], [address] Urea nitrogen [Mass/Vol] 38 mg/dL High 7-18 [facility] Comment on above: Performed By: #### L 500.2500, L100.0100, L501.9520, L501.2300, L501.5200 ####[facility] [address] [place], [address] CBC W/Diff, Automatedon 07-21 Absolute Lymph 0.38 X10 3/uL Low 0.83-4.51 [facility] Comment on above: Performed By: #### L 500.2500, L100.0100, L501.9520, L501.2300, L501.5200 ####[facility] [address] [place], [address] Absolute Neut 8.0 X10 3/uL High 2.0-7.7 [facility] Comment on above: Performed By: #### L 500.2500, L100.0100, L501.9520, L501.2300, L501.5200 ####[facility] [address] [place], [address] Basophils/100 WBC (Bld) 0.1 % Normal 0-1 [facility] Comment on above: Performed By: #### L 500.2500, L100.0100, L501.9520, L501.2300, L501.5200 ####[facility] [address] [place], [address] Eosinophils/100 WBC (Bld) 0.0 % Normal 0-5 [facility] Comment on above: Performed By: #### L 500.2500, L100.0100, L501.9520, L501.2300, L501.5200 ####[facility] [address] [place], [address] Erythrocyte distribution width (RBC) [Ratio] 12.4 % Normal 11.6-14.6 [facility] Comment on above: Performed By: #### L 500.2500, L100.0100, L501.9520, L501.2300, L501.5200 ####[facility] [address] [place], [address] Hematocrit (Bld) [Volume fraction] 30.0 % Low 40-54 [facility] Comment on above: Performed By: #### L 500.2500, L100.0100, L501.9520, L501.2300, L501.5200 ####[facility] [address] [place], [address] Hemoglobin (Bld) [Mass/Vol] 10.5 g/dL Low 13.0-16.5 [facility] Comment on above: Performed By: #### L 500.2500, L100.0100, L501.9520, L501.2300, L501.5200 ####[facility] [address] [place], [address] IG% 0.800 Normal 0.0-0.9 [facility] Comment on above: Result Comment: IG% - Immature Granulocytes (promyelocytes, myelocytes andmetamyelocytes) > 1% indicates that a LEFT SHIFT is Present. Performed By: #### L 500.2500, L100.0100, L501.9520, L501.2300, L501.5200 ####[facility] [address] [place], [address] Lymphocytes/100 WBC (Bld) 4.3 % Low 19-41 [facility] Comment on above: Performed By: #### L 500.2500, L100.0100, L501.9520, L501.2300, L501.5200 ####[facility] [address] [place], [address] MCH (RBC) [Entitic mass] 30.7 pg Normal 27.0-32.0 [facility] Comment on above: Performed By: #### L 500.2500, L100.0100, L501.9520, L501.2300, L501.5200 ####[facility] [address] [place], [address] MCHC (RBC) [Mass/Vol] 35.0 g/dL Normal 32-36 [facility] Comment on above: Performed By: #### L 500.2500, L100.0100, L501.9520, L501.2300, L501.5200 ####[facility] [address] [place], [address] MCV (RBC) [Entitic vol] 87.7 fL Normal 80-94 [facility] Comment on above: Performed By: #### L 500.2500, L100.0100, L501.9520, L501.2300, L501.5200 ####[facility] [address] [place], [address] Monocytes/100 WBC (Bld) 3.2 % Normal 0-10 [facility] Comment on above: Performed By: #### L 500.2500, L100.0100, L501.9520, L501.2300, L501.5200 ####[facility] [address] [place], [address] Neutrophils/100 WBC (Bld) 91.6 % High 47-70 [facility] Comment on above: Performed By: #### L 500.2500, L100.0100, L501.9520, L501.2300, L501.5200 ####[facility] [address] [place], [address] Nucleated RBC (Bld) [#/Vol] 0 10*3/uL Normal 0-5 [facility] Comment on above: Performed By: #### L 500.2500, L100.0100, L501.9520, L501.2300, L501.5200 ####[facility] [address] [place], [address] Platelet mean volume (Bld) [Entitic vol] 10.6 fL Normal 6.2-12.0 [facility] Comment on above: Performed By: #### L 500.2500, L100.0100, L501.9520, L501.2300, L501.5200 ####[facility] [address] [place], [address] Platelets (Bld) [#/Vol] 215 10*3/uL Normal 150-450 [facility] Comment on above: Performed By: #### L 500.2500, L100.0100, L501.9520, L501.2300, L501.5200 ####[facility] [address] [place], [address] RBC (Bld) [#/Vol] 3.42 10*6/uL Low 4.6-6.2 [facility] Comment on above: Performed By: #### L 500.2500, L100.0100, L501.9520, L501.2300, L501.5200 ####[facility] [address] [place], [address] RDW SD 40.0 fl Normal 35.1-43.9 [facility] Comment on above: Performed By: #### L 500.2500, L100.0100, L501.9520, L501.2300, L501.5200 ####[facility] [address] [place], [address] WBC (Bld) [#/Vol] 8.8 10*3/uL Normal 4.4-11.0 [facility] Comment on above: Performed By: #### L 500.2500, L100.0100, L501.9520, L501.2300, L501.5200 ####[facility] [address] [place], [address] Legionella Antigen Urineon 0 08-01-2024 LEGU Normal [facility] Comment on above: Performed By: #### M 300.4600, M300.4500 ####[facility] [address] [place], [address] Magnesiumon 08-01-2024 Magnesium [Mass/Vol] 2.2 mg/dL Normal 1.6-2.6 [facility] Comment on above: Performed By: #### L 500.2500, L100.0100, L501.9520, L501.2300, L501.5200 ####[facility] [address] [place], [address] Magnesium measurementOrdered By: Yayo Esquivel on 08-01-2024 Magnesium [Mass/Vol] 2.2 mg/dL 1.6-2.6 [facility] Magnesium measurement 2.2 mg/dL 1.6-2.6 [facility] Phosphoruson 08-01-2024 Phosphate [Mass/Vol] 3.3 mg/dL Normal 2.5-4.9 [facility] Comment on above: Performed By: #### L 500.2500, L100.0100, L501.9520, L501.2300, L501.5200 ####[facility] [address] [place], [address] Phosphorus measurementOrdere d By: Yayo Esquivel on 08-01-2024 Phosphorus measurement 3.3 mg/dL 2.5-4.9 [facility] Serum or plasma thyroid stim ulating hormone (TSH) measurement (units/volume)Ordered By: Yayo Esquivel on 08-01-2024 TSH Qn 0.395 uIU/mL 0.358-3.740 [facility] Strep pneumoniae Antig(UR,CS F)on 08-01-2024 STPAG Normal [facility] Comment on above: Performed By: #### M 300.4600, M300.4500 ####[facility] [address] [facility] [place], [place], [address] TSH QnOrdered By: Yayo braun on 08-01-2024 Serum or plasma thyroid stimulating hormone (TSH) measurement (units/volume) 0.395 uIU/mL 0.358-3.740 [facility] Thyroid Stim Hormone (TSH)on 08-01-2024 TSH 0.395 uIU/mL Normal 0.358-3.740 [facility] Comment on above: Performed By: #### L 500.2500, L100.0100, L501.9520, L501.2300, L501.5200 ####[facility] [address] [facility] [place], [place], [id number] ALP [Catalytic activity/Vol] Ordered By: [facility] Derrick on 07-31-2024 Serum or plasma alkaline phosphatase measurement 100 U/L 45-117 [facility] ALT [Catalytic activity/Vol] Ordered By: [facility] Derrick on 07-31-2024 Serum or plasma alanine aminotransferase (ALT) measurement 38 U/L 16-61 [facility] Albumin [Mass/Vol]Ordered By : Olivia Derrick on 07-31-2024 Serum or plasma albumin measurement (mass/volume) 2.2 g/dL Low 3.2-5.0 [facility] Albumin to globulin ratioOrd ered By: [facility] Derrick on 07-31-2024 Albumin to globulin ratio 0.6 RATIO Low 0.9-2.4 [facility] Bilirubin, totalOrdered By: Olivia Meza on 07-31-2024 Bilirubin [Mass/Vol] 1.10 mg/dL High 0.20-1.00 [facility] Bilirubin, total 1.10 mg/dL High 0.20-1.00 [facility] Brain without Contraston Brain without Contrast Normal [facility] CBC W/Diff, Automatedon 01- Absolute Lymph 0.26 X10 3/uL Low 0.83-4.51 [facility] Comment on above: Performed By: #### L 500.4050, L501.9520, L500.4100, L100.0100, L501.9985 ####[facility] [address] [place], [address] Absolute Neut 7.9 X10 3/uL High 2.0-7.7 [facility] Comment on above: Performed By: #### L 500.4050, L501.9520, L500.4100, L100.0100, L501.9985 ####[facility] [address] [place], [address] Basophils/100 WBC (Bld) 0.1 % Normal 0-1 [facility] Comment on above: Performed By: #### L 500.4050, L501.9520, L500.4100, L100.0100, L501.9985 ####[facility] [address] [place], [address] Eosinophils/100 WBC (Bld) 0.0 % Normal 0-5 [facility] Comment on above: Performed By: #### L 500.4050, L501.9520, L500.4100, L100.0100, L501.9985 ####[facility] [address] [place], [address] Erythrocyte distribution width (RBC) [Ratio] 12.4 % Normal 11.6-14.6 [facility] Comment on above: Performed By: #### L 500.4050, L501.9520, L500.4100, L100.0100, L501.9985 ####[facility] [address] [place], [address] Hematocrit (Bld) [Volume fraction] 30.3 % Low 40-54 [facility] Comment on above: Performed By: #### L 500.4050, L501.9520, L500.4100, L100.0100, L501.9985 ####[facility] [address] [place], [address] Hemoglobin (Bld) [Mass/Vol] 10.7 g/dL Low 13.0-16.5 [facility] Comment on above: Performed By: #### L 500.4050, L501.9520, L500.4100, L100.0100, L501.9985 ####[facility] [address] [place], [address] IG% 0.700 Normal 0.0-0.9 [facility] Comment on above: Result Comment: IG% - Immature Granulocytes (promyelocytes, myelocytes andmetamyelocytes) > 1% indicates that a LEFT SHIFT is Present. Performed By: #### L 500.4050, L501.9520, L500.4100, L100.0100, L501.9985 ####[facility] [address] [place], [address] Lymphocytes/100 WBC (Bld) 3.1 % Low 19-41 [facility] Comment on above: Performed By: #### L 500.4050, L501.9520, L500.4100, L100.0100, L501.9985 ####[facility] [address] [place], [address] MCH (RBC) [Entitic mass] 31.1 pg Normal 27.0-32.0 [facility] Comment on above: Performed By: #### L 500.4050, L501.9520, L500.4100, L100.0100, L501.9985 ####[facility] [address] [place], [address] MCHC (RBC) [Mass/Vol] 35.3 g/dL Normal 32-36 [facility] Comment on above: Performed By: #### L 500.4050, L501.9520, L500.4100, L100.0100, L501.9985 ####[facility] [address] [place], [address] MCV (RBC) [Entitic vol] 88.1 fL Normal 80-94 [facility] Comment on above: Performed By: #### L 500.4050, L501.9520, L500.4100, L100.0100, L501.9985 ####[facility] [address] [place], [address] Monocytes/100 WBC (Bld) 1.7 % Normal 0-10 [facility] Comment on above: Performed By: #### L 500.4050, L501.9520, L500.4100, L100.0100, L501.9985 ####[facility] [address] [place], [address] Neutrophils/100 WBC (Bld) 94.4 % High 47-70 [facility] Comment on above: Performed By: #### L 500.4050, L501.9520, L500.4100, L100.0100, L501.9985 ####[facility] [address] [place], [address] Nucleated RBC (Bld) [#/Vol] 0 10*3/uL Normal 0-5 [facility] Comment on above: Performed By: #### L 500.4050, L501.9520, L500.4100, L100.0100, L501.9985 ####[facility] [address] [place], [address] Platelet mean volume (Bld) [Entitic vol] 9.8 fL Normal 6.2-12.0 [facility] Comment on above: Performed By: #### L 500.4050, L501.9520, L500.4100, L100.0100, L501.9985 ####[facility] [address] [place], [address] Platelets (Bld) [#/Vol] 194 10*3/uL Normal 150-450 [facility] Comment on above: Performed By: #### L 500.4050, L501.9520, L500.4100, L100.0100, L501.9985 ####[facility] [address] [place], [address] RBC (Bld) [#/Vol] 3.44 10*6/uL Low 4.6-6.2 [facility] Comment on above: Performed By: #### L 500.4050, L501.9520, L500.4100, L100.0100, L501.9985 ####[facility] [address] [place], [address] RDW SD 39.8 fl Normal 35.1-43.9 [facility] Comment on above: Performed By: #### L 500.4050, L501.9520, L500.4100, L100.0100, L501.9985 ####[facility] [address] [place], [address] WBC (Bld) [#/Vol] 8.4 10*3/uL Normal 4.4-11.0 [facility] Comment on above: Performed By: #### L 500.4050, L501.9520, L500.4100, L100.0100, L501.9985 ####[facility] [address] [place], [address] Cholesterol [Mass/Vol]Ordere d By: Olivia Meza on 07-31-2024 Serum or plasma cholesterol measurement (mass/volume) 75 mg/dL <200 [facility] Comprehensive Metabolic Prof ilon 07-31-2024 Albumin [Mass/Vol] 2.2 g/dL Low 3.2-5.0 [facility] Comment on above: Performed By: #### L 500.4050, L501.9520, L500.4100, L100.0100, L501.9985 ####[facility] [address] [place], [address] Albumin/Globulin [Mass ratio] 0.6 {ratio} Low 0.9-2.4 [facility] Comment on above: Performed By: #### L 500.4050, L501.9520, L500.4100, L100.0100, L501.9985 ####[facility] [address] [place], [address] ALK P 100 U/L Normal 45-117 [facility] Comment on above: Performed By: #### L 500.4050, L501.9520, L500.4100, L100.0100, L501.9985 ####[facility] [address] [place], [address] ALT [Catalytic activity/Vol] 38 U/L Normal 16-61 [facility] Comment on above: Performed By: #### L 500.4050, L501.9520, L500.4100, L100.0100, L501.9985 ####[facility] [address] [place], [address] AST [Catalytic activity/Vol] 52 U/L High 15-37 [facility] Comment on above: Performed By: #### L 500.4050, L501.9520, L500.4100, L100.0100, L501.9985 ####[facility] [address] [place], [address] Bilirubin [Mass/Vol] 1.10 mg/dL High 0.20-1.00 [facility] Comment on above: Result Comment: For patients on eltrombopag therapy, use of Dimension [place] TBIL is not recommended. Performed By: #### L 500.4050, L501.9520, L500.4100, L100.0100, L501.9985 ####[facility] [address] [place], [address] BUN/CRE 24.1 RATIO High 10-20 [facility] Comment on above: Performed By: #### L 500.4050, L501.9520, L500.4100, L100.0100, L501.9985 ####[facility] [address] [place], [address] CA,Total 8.5 mg/dL Normal 8.5-10.1 [facility] Comment on above: Performed By: #### L 500.4050, L501.9520, L500.4100, L100.0100, L501.9985 ####[facility] [address] [place], [address] Chloride [Moles/Vol] 99 mmol/L Normal 98-107 [facility] Comment on above: Performed By: #### L 500.4050, L501.9520, L500.4100, L100.0100, L501.9985 ####[facility] [address] [place], [address] CO2 [Moles/Vol] 19.0 mmol/L Low 21.0-32.0 [facility] Comment on above: Performed By: #### L 500.4050, L501.9520, L500.4100, L100.0100, L501.9985 ####[facility] [address] [place], [address] Creatinine [Mass/Vol] 1.08 mg/dL Normal 0.70-1.30 [facility] Comment on above: Result Comment: The validity of the calculated GFR GFRAA in patients over70 years has not been determined. Clinical correlation isessential. Performed By: #### L 500.4050, L501.9520, L500.4100, L100.0100, L501.9985 ####[facility] [address] [place], [address] ECRCL 62.57 ml/min Normal [facility] Comment on above: Performed By: #### L 500.4050, L501.9520, L500.4100, L100.0100, L501.9985 ####[facility] [address] [place], [address] EST GFR - AA 83 mL/min Normal >60 [facility] Comment on above: Result Comment: Afri can [place] GFR Calc Performed By: #### L 500.4050, L501.9520, L500.4100, L100.0100, L501.9985 ####[facility] [address] [place], [address] GAP 6 Normal 5-15 [facility] Comment on above: Performed By: #### L 500.4050, L501.9520, L500.4100, L100.0100, L501.9985 ####[facility] [address] [place], [address] GFR/1.73 sq M.predicted among non-blacks MDRD (S/P/Bld) [Vol rate/Area] 69 mL/min/{1.73_m2} Normal >60 [facility] Comment on above: Result Comment: Non- GFR Calc Performed By: #### L 500.4050, L501.9520, L500.4100, L100.0100, L501.9985 ####[facility] [address] [place], [address] Globulin (S) [Mass/Vol] 3.9 g/dL Normal 2.2-4.2 [facility] Comment on above: Performed By: #### L 500.4050, L501.9520, L500.4100, L100.0100, L501.9985 ####[facility] [address] [place], [address] Glucose [Mass/Vol] 172 mg/dL High 74-106 [facility] Comment on above: Result Comment: Fast ing Glucose result greater than or equal to 126 mg/dLsuggests DIABETES MELLITUS per A.D.A. criteria. Performed By: #### L 500.4050, L501.9520, L500.4100, L100.0100, L501.9985 ####[facility] [address] [place], [address] Potassium [Moles/Vol] 4.6 mmol/L Normal 3.5-5.1 [facility] Comment on above: Performed By: #### L 500.4050, L501.9520, L500.4100, L100.0100, L501.9985 ####[facility] [address] [place], [address] Sodium [Moles/Vol] 124 mmol/L Low 136-145 [facility] Comment on above: Performed By: #### L 500.4050, L501.9520, L500.4100, L100.0100, L501.9985 ####[facility] [address] [place], [address] T PROT 6.1 g/dL Low 6.4-8.2 [facility] Comment on above: Performed By: #### L 500.4050, L501.9520, L500.4100, L100.0100, L501.9985 ####[facility] [address] [place], [address] Urea nitrogen [Mass/Vol] 26 mg/dL High 7-18 [facility] Comment on above: Performed By: #### L 500.4050, L501.9520, L500.4100, L100.0100, L501.9985 ####[facility] [address] [place], [place], [id number] HbA1c (Bld) [Mass fraction]O rdered By: Olivia Meza on 07-31-2024 Hemoglobin A1c percentage 5.8 % High 3.8-5.6 [facility] Hemoglobin A1con 07-31-2024 HbA1c (Bld) [Mass fraction] 5.8 % High 3.8-5.6 [facility] Comment on above: Result Comment: Norm al < 5.7 % Prediabetic 5.7 - 6.4 % Diabetic >or= 6.5 % Please note range changes. Performed By: #### L 500.4050, L501.9520, L500.4100, L100.0100, L501.9985 ####[facility] [address] [facility] [place], [place], [phone] Hemoglobin A1c percentageOrd ered By: Olivia Meza on 07-31-2024 HbA1c (Bld) [Mass fraction] 5.8 % High 3.8-5.6 [facility] High density lipoprotein (HD L) measurementOrdered By: Olivia Meza on 07-31-2024 High density lipoprotein (HDL) measurement 25 mg/dL Low >40 [facility] High density lipoprotein (HDL) measurement 25 mg/dL Low >40 [facility] Lipid Profileon 07-31-2024 Cholesterol [Mass/Vol] 75 mg/dL Normal 200 [facility] Comment on above: Result Comment: <200 mg/dL Desirable 200-240 mg/dL Borderline >240 mg/dL High Risk Performed By: #### L 500.4050, L501.9520, L500.4100, L100.0100, L501.9985 ####[facility] [address] [facility] [place], [place], [id number] Cholesterol in HDL [Mass/Vol] 25 mg/dL Low [facility] Comment on above: Result Comment: The drugs N-Acetylcysteine and Metamizole may falselydepress this assay. Reference Range HDL <40 mg/dL Low HDL Cholesterol HDL >or= 60 mg/dL High HDL Cholesterol Performed By: #### L 500.4050, L501.9520, L500.4100, L100.0100, L501.9985 ####[facility] [address] [place], [address] Cholesterol in LDL [Mass/Vol] 39 mg/dL Normal 0-130 [facility] Comment on above: Performed By: #### L 500.4050, L501.9520, L500.4100, L100.0100, L501.9985 ####[facility] [address] [place], [address] Cholesterol in VLDL [Mass/Vol] 11 mg/dL Normal 5-40 [facility] Comment on above: Performed By: #### L 500.4050, L501.9520, L500.4100, L100.0100, L501.9985 ####[facility] [address] [place], [address] Triglyceride [Mass/Vol] 53 mg/dL Normal [facility] Comment on above: Result Comment: The drugs N-Acetylcysteine and Metamizole may falselydepress this assay.Serum Triglycerides Reference Interval Normal <150 mg/dL Borderline high 150 - 199 mg/dL High 200 - 499 mg/dL Very High > or = 500 mg/dL Performed By: #### L 500.4050, L501.9520, L500.4100, L100.0100, L501.9985 ####[facility] [address] [place], [address] Low density lipoprotein (LDL ) cholesterol measurementOrdered By: Olivia Meza on 07-31-2024 Low density lipoprotein (LDL) cholesterol measurement 39 mg/dL 0-130 [facility] Low density lipoprotein (LDL) cholesterol measurement 39 mg/dL 0-130 [facility] No Panel InformationOrdered By: Olivia Derrick on 07-31-2024 52 U/L High 15-37 [facility] RESPIRATORY PANEL MOLECULARo n 07-31-2024 RP PANEL Normal [facility] Comment on above: Performed By: #### M 100.638 ####[facility] [address] [place], [address] Respiratory pathogens detect ion panel by molecular detection methodOrdered By: Olivia Meza on 07-31-2024 Respiratory pathogens DNA and RNA panel JIL+probe (Resp) [facility] Serum globulin measurementOr dered By: Olivia Meza on 07-31-2024 Globulin (S) [Mass/Vol] 3.9 g/dL 2.2-4.2 [facility] Serum globulin measurement 3.9 g/dL 2.2-4.2 [facility] Serum or plasma alanine alvarez otransferase (ALT) measurementOrdered By: Olivia Derrick on 07-31-2024 ALT [Catalytic activity/Vol] 38 U/L 16-61 [facility] Serum or plasma albumin todd urement (mass/volume)Ordered By: Olivia Meza on 07-31-2024 Albumin [Mass/Vol] 2.2 g/dL Low 3.2-5.0 [facility] Serum or plasma alkaline miguel sphatase measurementOrdered By: Olivia Meza on 07-31-2024 ALP [Catalytic activity/Vol] 100 U/L 45-117 [facility] Serum or plasma cholesterol measurement (mass/volume)Ordered By: Olivia Meza on 07-31-2024 Cholesterol [Mass/Vol] 75 mg/dL <200 [facility] Thyroid Stim Hormone (TSH)on 07-31-2024 TSH 0.745 uIU/mL Normal 0.358-3.740 [facility] Comment on above: Performed By: #### L 500.4050, L501.9520, L500.4100, L100.0100, L501.9985 ####[facility] [address] [place], [address] Total proteinOrdered By: Aut anastasia Meza on 07-31-2024 Protein [Mass/Vol] 6.1 g/dL Low 6.4-8.2 [facility] Total protein 6.1 g/dL Low 6.4-8.2 [facility] Triglycerides measurementOrd ered By: Olivia Meza on 07-31-2024 Triglycerides measurement 53 mg/dL <199 [facility] Urine Legionella pneumophila antigen detectionOrdered By: Olivia Meza on 07-31-2024 L. pneumophila Ag Ql (U) [facility] Very low density lipoprotein (VLDL) cholesterol measurementOrdered By: Olivia Meza on 07-31-2024 Very low density lipoprotein (VLDL) cholesterol measurement 11 mg/dL -40 [facility] Very low density lipoprotein (VLDL) cholesterol measurement 11 mg/dL -40 [facility] 12 Lead EKGon 07-30-2024 12 Lead EKG Normal [facility] BNP (brain natriuretic pepti de measurement)Ordered By: Olivia Derrick on 07-30-2024 Natriuretic peptide B (Bld) [Mass/Vol] 157.2 pg/mL High 0-100 [facility] BNP (brain natriuretic peptide measurement) 157.2 pg/mL High 0-100 [facility] BNP,B-Type NATRIURETIC PEPTI Rubina 07-30-2024 Natriuretic peptide B (Bld) [Mass/Vol] 157.2 pg/mL High 0-100 [facility] Comment on above: Performed By: #### L 503.6620, L509.7000, L501.5200 ####[facility] [address] [place], [address] Bilirubin Test strip Ql (U)O rdered By: Ryan Huizar on 07-30-2024 Bilirubin Ql (U) Negative Negative [facility] Brain/Head without Contrasto n 07-30-2024 Brain/Head without Contrast Normal [facility] CBC W/Diff, Automatedon 07-21 Absolute Lymph 0.53 X10 3/uL Low 0.83-4.51 [facility] Comment on above: Performed By: #### L 500.4050, L100.0100 ####[facility] [address] [place], [address] Absolute Neut 10.0 X10 3/uL High 2.0-7.7 [facility] Comment on above: Performed By: #### L 500.4050, L100.0100 ####[facility] [address] [place], [address] Basophils/100 WBC (Bld) 0.4 % Normal 0-1 [facility] Comment on above: Performed By: #### L 500.4050, L100.0100 ####[facility] [address] [place], [address] Eosinophils/100 WBC (Bld) 0.1 % Normal 0-5 [facility] Comment on above: Performed By: #### L 500.4050, L100.0100 ####[facility] [address] [place], [address] Erythrocyte distribution width (RBC) [Ratio] 12.6 % Normal 11.6-14.6 [facility] Comment on above: Performed By: #### L 500.4050, L100.0100 ####[facility] [address] [place], [address] Hematocrit (Bld) [Volume fraction] 34.9 % Low 40-54 [facility] Comment on above: Performed By: #### L 500.4050, L100.0100 ####[facility] [address] [place], [address] Hemoglobin (Bld) [Mass/Vol] 12.2 g/dL Low 13.0-16.5 [facility] Comment on above: Performed By: #### L 500.4050, L100.0100 ####[facility] [address] [place], [address] IG% 0.600 Normal 0.0-0.9 [facility] Comment on above: Result Comment: IG% - Immature Granulocytes (promyelocytes, myelocytes andmetamyelocytes) > 1% indicates that a LEFT SHIFT is Present. Performed By: #### L 500.4050, L100.0100 ####[facility] [address] [place], [address] Lymphocytes/100 WBC (Bld) 4.7 % Low 19-41 [facility] Comment on above: Performed By: #### L 500.4050, L100.0100 ####[facility] [address] [place], [address] MCH (RBC) [Entitic mass] 31.0 pg Normal 27.0-32.0 [facility] Comment on above: Performed By: #### L 500.4050, L100.0100 ####[facility] [address] [place], [address] MCHC (RBC) [Mass/Vol] 35.0 g/dL Normal 32-36 [facility] Comment on above: Performed By: #### L 500.4050, L100.0100 ####[facility] [address] [place], [address] MCV (RBC) [Entitic vol] 88.8 fL Normal 80-94 [facility] Comment on above: Performed By: #### L 500.4050, L100.0100 ####[facility] [address] [place], [address] Monocytes/100 WBC (Bld) 5.4 % Normal 0-10 [facility] Comment on above: Performed By: #### L 500.4050, L100.0100 ####[facility] [address] [place], [address] Neutrophils/100 WBC (Bld) 88.8 % High 47-70 [facility] Comment on above: Performed By: #### L 500.4050, L100.0100 ####[facility] [address] [place], [address] Nucleated RBC (Bld) [#/Vol] 0 10*3/uL Normal 0-5 [facility] Comment on above: Performed By: #### L 500.4050, L100.0100 ####[facility] [address] [place], [address] Platelet mean volume (Bld) [Entitic vol] 10.7 fL Normal 6.2-12.0 [facility] Comment on above: Performed By: #### L 500.4050, L100.0100 ####[facility] [address] [place], [address] Platelets (Bld) [#/Vol] 188 10*3/uL Normal 150-450 [facility] Comment on above: Performed By: #### L 500.4050, L100.0100 ####[facility] [address] [place], [address] RBC (Bld) [#/Vol] 3.93 10*6/uL Low 4.6-6.2 [facility] Comment on above: Performed By: #### L 500.4050, L100.0100 ####[facility] [address] [place], [address] RDW SD 41.1 fl Normal 35.1-43.9 [facility] Comment on above: Performed By: #### L 500.4050, L100.0100 ####[facility] [address] [place], [address] WBC (Bld) [#/Vol] 11.3 10*3/uL High 4.4-11.0 [facility] Comment on above: Performed By: #### L 500.4050, L100.0100 ####[facility] [address] [place], [address] Chest PA and Lateralon 07-30 Chest PA and Lateral Normal [facility] Clarity (U)Ordered By: Ryan Huizar on 07-30-2024 Urine clarity Clear Clear [facility] Color (U)Ordered By: Ryan Huizar on 07-30-2024 Urine color determination Yellow Yellow [facility] Comprehensive Metabolic Prof ilon 07-30-2024 Albumin [Mass/Vol] 3.0 g/dL Low 3.2-5.0 [facility] Comment on above: Performed By: #### L 500.4050, L100.0100 ####[facility] [address] [place], [address] Albumin/Globulin [Mass ratio] 0.8 {ratio} Low 0.9-2.4 [facility] Comment on above: Performed By: #### L 500.4050, L100.0100 ####[facility] [address] [place], [address] ALK P 113 U/L Normal 45-117 [facility] Comment on above: Performed By: #### L 500.4050, L100.0100 ####[facility] [address] [place], [address] ALT [Catalytic activity/Vol] 10 U/L Low 16-61 [facility] Comment on above: Performed By: #### L 500.4050, L100.0100 ####[facility] [address] [place], [address] AST [Catalytic activity/Vol] 14 U/L Low 15-37 [facility] Comment on above: Performed By: #### L 500.4050, L100.0100 ####[facility] [address] [place], [address] Bilirubin [Mass/Vol] 0.40 mg/dL Normal 0.20-1.00 [facility] Comment on above: Result Comment: For patients on eltrombopag therapy, use of Dimension [place] TBIL is not recommended. Performed By: #### L 500.4050, L100.0100 ####[facility] [address] [place], [address] BUN/CRE 26.9 RATIO High 10-20 [facility] Comment on above: Performed By: #### L 500.4050, L100.0100 ####[facility] [address] [place], [address] CA,Total 8.8 mg/dL Normal 8.5-10.1 [facility] Comment on above: Performed By: #### L 500.4050, L100.0100 ####[facility] [address] [place], [address] Chloride [Moles/Vol] 104 mmol/L Normal 98-107 [facility] Comment on above: Performed By: #### L 500.4050, L100.0100 ####[facility] [address] [place], [address] CO2 [Moles/Vol] 28.0 mmol/L Normal 21.0-32.0 [facility] Comment on above: Performed By: #### L 500.4050, L100.0100 ####[facility] [address] [place], [address] Creatinine [Mass/Vol] 1.30 mg/dL Normal 0.70-1.30 [facility] Comment on above: Result Comment: The validity of the calculated GFR GFRAA in patients over70 years has not been determined. Clinical correlation isessential. Performed By: #### L 500.4050, L100.0100 ####[facility] [address] [place], [address] ECRCL 52.09 ml/min Normal [facility] Comment on above: Performed By: #### L 500.4050, L100.0100 ####[facility] [address] [place], [address] EST GFR - AA 67 mL/min Normal >60 [facility] Comment on above: Result Comment: Afri can Grenadian GFR Calc Performed By: #### L 500.4050, L100.0100 ####[facility] [address] [place], [address] GAP 4 Low 5-15 [facility] Comment on above: Performed By: #### L 500.4050, L100.0100 ####[facility] [address] [place], [address] GFR/1.73 sq M.predicted among non-blacks MDRD (S/P/Bld) [Vol rate/Area] 56 mL/min/{1.73_m2} Low >60 [facility] Comment on above: Result Comment: Non- GFR Calc Performed By: #### L 500.4050, L100.0100 ####[facility] [address] [place], [address] Globulin (S) [Mass/Vol] 3.8 g/dL Normal 2.2-4.2 [facility] Comment on above: Performed By: #### L 500.4050, L100.0100 ####[facility] [address] [place], [address] Glucose [Mass/Vol] 90 mg/dL Normal 74-106 [facility] Comment on above: Performed By: #### L 500.4050, L100.0100 ####[facility] [address] [place], [address] Potassium [Moles/Vol] 4.3 mmol/L Normal 3.5-5.1 [facility] Comment on above: Performed By: #### L 500.4050, L100.0100 ####[facility] [address] [place], [address] Sodium [Moles/Vol] 136 mmol/L Normal 136-145 [facility] Comment on above: Performed By: #### L 500.4050, L100.0100 ####[facility] [address] [place], [address] T PROT 6.8 g/dL Normal 6.4-8.2 [facility] Comment on above: Performed By: #### L 500.4050, L100.0100 ####[facility] [address] [place], [address] Urea nitrogen [Mass/Vol] 35 mg/dL High 7-18 [facility] Comment on above: Performed By: #### L 500.4050, L100.0100 ####[facility] [address] [place], [address] Echo Complete W/ Contraston 07-30-2024 Echo Complete W/ Contrast Normal [facility] Emergency Department Summary on 07-30-2024 Emergency Department Summary Normal [facility] Glucose Ql (U)Ordered By: Billy Huizar on 07-30-2024 Urine glucose detection Normal mg/dl Normal [facility] H AND P Exam - Hospitaliston 07-30-2024 H&P Exam - Hospitalist Normal [facility] Ketones Test strip Ql (U)Ord ered By: Ryan Huizar on 07-30-2024 Ketones Ql (U) Negative Negative [facility] Leukocyte esterase Test stri p Ql (U)Ordered By: Ryan Huizar on 07-30-2024 Urine leukocyte esterase detection by dipstick 25 /ul High Negative [facility] Magnesiumon 07-30-2024 Magnesium [Mass/Vol] 2.6 mg/dL Normal 1.6-2.6 [facility] Comment on above: Order Comment: Comme nts: may add to ED labs Performed By: #### L 503.6612, L509.7000, L501.5200 ####[facility] [address] [place], [address] Mucus LM Ql (Urine sed)Order ed By: Ryan Huizar on 07-30-2024 Mucus Ql (Urine sed) 0 SEEN /hpf [facility] Nitrite Test strip Ql (U)Ord ered By: Ryan Huizar on 07-30-2024 Nitrite Ql (U) Negative Negative [facility] Procalcitoninon 07-30-2024 Procalcitonin 0.42 ng/mL High 0.00-0.09 [facility] Comment on above: Result Comment: A pr ocalcitonin (PCT) level above 2.0 ng/mL on the first day of ICU admission is associated with a high risk for progression to severe sepsis and/or septic shock. A PCT level below 0.5 ng/mL on the first day of ICU admission is associated with a low risk for progression to severe and/or septic shock. Note: Concentrations <0.5 ng/mL do not exclude an infection on account of localized infections (without systemic signs) which can be associated with such low concentrations, or a systemic infection in its initial stages (<6 hours). Furthermore, increased procalcitonin can occur without infection. PCT concentrations between 0.5 and 2.0 ng/mL should be interpreted taking into account the patient's history. It is recommended to retest PCT within 6-24 hours if any concentrations <2 ng/mL are obtained. Performed By: #### L 503.6620, L509.7000, L501.5200 ####[facility] [address] [place], [address] Procalcitonin [Mass/Vol]Orde red By: Olivia Meza on 07-30-2024 Serum procalcitonin measurement 0.42 ng/mL High 0.00-0.09 [facility] Protein Test strip Ql (U)Ord ered By: Ryan Huizar on 07-30-2024 Protein Ql (U) 15 mg/dl High Negative [facility] Urine protein assay by test strip, semi-quantitative 15 mg/dl High Negative [facility] STROKE CTA Head AND Neck W/C onon 07-30-2024 STROKE CTA Head AND Neck W/Con Normal [facility] Serum procalcitonin measurem entOrdered By: Olivia Meza on 07-30-2024 Procalcitonin [Mass/Vol] 0.42 ng/mL High 0.00-0.09 [facility] Specific gravity (U) [Rel de nsity]Ordered By: Ryan Huizar on 07-30-2024 Urine specific gravity measurement 1.010 1.002-1.030 [facility] Squamous epithelial cells de tection in urine sediment by light microscopyOrdered By: Ryan Huizar on 07-30-2024 Epithelial cells.squamous LM Ql (Urine sed) 0-5 SEEN /hpf 0-5 [facility] Urinalysis, Completeon 07-30 EPI,SQUAMOUS 0-5 SEEN Normal 0-5 [facility] Comment on above: Order Comment: CLEAN CATCH Performed By: #### L 400.0001 ####[facility] [address] [place], [address] RBC 0-5 SEEN Normal 0-5 [facility] Comment on above: Order Comment: CLEAN CATCH Performed By: #### L 400.0001 ####[facility] [address] [place], [address] WBC 0-5 SEEN Normal 0-5 [facility] Comment on above: Order Comment: CLEAN CATCH Performed By: #### L 400.0001 ####[facility] [address] [place], [address] BACTERIA 0 SEEN Normal None Seen [facility] Comment on above: Order Comment: CLEAN CATCH Performed By: #### L 400.0001 ####[facility] [address] [place], [address] Mucus Ql (Urine sed) 0 SEEN Normal [facility] Comment on above: Order Comment: CLEAN CATCH Performed By: #### L 400.0001 ####[facility] [address] [place], [address] Urine blood detectionOrdered By: Ryan Huizar on 07-30-2024 Urine blood detection 10 /ul High Negative [facility] Urine clarityOrdered By: Tod Huizar on 07-30-2024 Clarity (U) Clear Clear [facility] Urine color determinationOrd ered By: Ryan Huizar on 07-30-2024 Color (U) Yellow Yellow [facility] Urine cultureOrdered By: Tod Huizar on 07-30-2024 Bacteria identified Cx Nom (U) Enterobacter cloacae complex Abnormal [facility] Urine culture Enterobacter cloacae complex Abnormal [facility] Urine glucose detectionOrder ed By: Ryan Huizar on 07-30-2024 Glucose Ql (U) Normal mg/dl Normal [facility] Urine leukocyte esterase det ection by dipstickOrdered By: Ryan Huizar on 07-30-2024 Leukocyte esterase Test strip Ql (U) 25 /ul High Negative [facility] Urine pHOrdered By: Ryan Huizar on 07-30-2024 pH (U) 6.5 [pH] 5.0 - 8.0 [facility] Urine sediment bacteria coun t by microscopy (number/high power field)Ordered By: Ryan Huizar on 07-30-2024 Bacteria LM.HPF (Urine sed) [#/Area] 0 /[HPF] None Seen [facility] Urine sediment bacteria count by microscopy (number/high power field) 0 SEEN /hpf [facility] Urine specific gravity measu rementOrdered By: Ryan Huizar on 07-30-2024 Specific gravity (U) [Rel density] 1.010 1.002-1.030 [facility] Urine total bilirubin detect ion by test stripOrdered By: Ryan Huizar on 07-30-2024 Urine total bilirubin detection by test strip Negative Negative [facility] Urine urobilinogen measureme ntOrdered By: Ryan Huizar on 07-30-2024 Urobilinogen Ql (U) 4 mg/dl High Normal [facility] Urobilinogen Ql (U)Ordered B y: Ryan Huizar on 07-30-2024 Urine urobilinogen measurement 4 mg/dl High Normal [facility] White blood cell countOrdere d By: Ryan Huizar on 07-30-2024 White blood cell count 0-5 SEEN /hpf 0-5 [facility] White blood cell count 0-5 SEEN /hpf 0-5 [facility] pH (U)Ordered By: Ryan Huizar on 07-30-2024 Urine pH 6.5 5.0 - 8.0 [facility] MR/BMS.IMBon 07-26-2024 MR/BMS.IMB Normal [facility] Orthopedic Visit Reporton Orthopedic Visit Report Normal [facility] CT CERVICAL SPINE WITHOUT CO NTRASTon 07-13-2024 CT CERVICAL SPINE WITHOUT CONTRAST EXAM: CT CERVICAL SPINE WITHOUT [id number]/24/2024 5:01 pm TECHNIQUE: Axial CT images were obtained through the cervical spine. Sagittal and coronal reformatted images were also obtained. Dose reduction techniques were achieved by using automated exposure control and/or adjustment of mA and/or kV according to patient size and/or use of iterative reconstruction technique. HISTORY: ORDERING SYSTEM PROVIDED HISTORY: Fall, injury, TECHNOLOGIST PROVIDED HISTORY: Injury/Trauma Reason for exam: fall today hit head, and is on blood thinner, small abrasion and hematoma over right frontal bone-denies neck pain at this time Encounter Type: Initial Mechanism of injury: fall today ORDERING SYSTEM PROVIDED DIAGNOSIS CODES: COMPARISON: None FINDINGS: Bones: No fracture. Chronic appearing fragmentation of the T1 spinous process with well corticated margins. Alignment: No acute traumatic subluxation. Mild degenerative anterolisthesis of C4 on C5. Arthritic changes: Moderate spondylosis of the mid and lower cervical spine. Disc spaces: No gross disc herniation given limitation of CT scan. Soft tissues: No soft tissue mass or large hematoma. _ IMPRESSION: No acute traumatic injury. Workstation ID: [id number] Dictated by: GEORGETTE FORD on FriJul 13, 2024 5:54:06 PM EST Transcribed by: GEORGETTE FORD on FriJul 13, 2024 5:54:06 PM EST Finalized by: GEORGETTE FORD on FriJul 13, 2024 5:54:06 PM EST Normal [facility] Comment on above: Order Comment: Injur y/Trauma or Illness?:Injury/Trauma How long have you had these symptoms (acute/chronic)?:Acute Reason for exam?:fall today hit head, and is on blood thinner, small abrasion and hematoma over right frontal bone-denies neck pain at this time Type of Exam?:Initial Mechanism of injury?:fall today CT HEAD OR BRAIN WITHOUT CON TRASTon 07-13-2024 CT HEAD OR BRAIN WITHOUT CONTRAST EXAMINATION: UNENHANCED CT SCAN OF THE BRAIN 07/13/2024 HISTORY: Injury/Trauma or Illness?:Injury/Trauma How long have you had these symptoms (acute/chronic)?:Acute Fall, injury COMPARISON FILMS: None. TECHNIQUE: 2.5 mm axial images from skull base through vertex without intravenous contrast were obtained. Sagittal, coronal reconstructions were also performed. Dose reduction techniques were achieved by using automated exposure control and/or adjustment of mA and/or kV according to patient size and/or use of iterative reconstruction technique. FINDINGS: There is no mass, mass effect or midline shift. There is no intra- or extraaxial hemorrhage. No discrete acute infarct is identified. There are chronic microvascular ischemic changes surrounding the ventricles. The visualized intraorbital contents, paranasal sinuses, mastoid air cells appear normal. The calvarium appears intact. IMPRESSION: 1. No acute infarct, hemorrhage or acute intracranial injury. 2. No skull fractures. 3. Moderate atrophic changes. [employer] Workstation ID: [id number] Dictated by: JOY BIRMINGHAM on FriJul 13, 2024 5:37:03 PM EST Transcribed by: TRACY STORM on FriJul 13, 2024 5:58:00 PM EST Finalized by: JOY BIRMINGHAM on FriJul 13, 2024 5:58:00 PM EST Normal [facility] Comment on above: Order Comment: Injur y/Trauma or Illness?:Injury/Trauma How long have you had these symptoms (acute/chronic)?:Acute Reason for exam?:fall today hit head, and is on blood thinner, small abrasion and hematoma over right frontal bone-denies headache or vision changes Type of Exam?:Initial Mechanism of injury?:fall ED Prov Noteon 07-13-2024 ED Prov Note PCP - Zora Woods MD Chief Complaint Patient presents with Fall HPI Brayan is a very pleasant 89-year-old gentleman presenting here for evaluation of trip and fall at home due to uneven surface at the edge of the driveway falling and striking the left side of his head. He did not lose consciousness and does not have any dizziness or lightheadedness before or after the injury. No visual disturbance, confusion, vomiting. No neck or back pain, numbness or tingling. He notes that he feels like he did not need to be evaluated but due to anticoagulant use family encouraged him to come in for evaluation. MDM/COURSE I did personally review Brayan's past medical history, surgical history, social history, [...] Obese Renal cyst ED MEDICATIONS GIVEN: Medications ipratropium-albuteroL (DUO-NEB) 0.5-2.5 mg/3 ml nebulizer solution 3 mL (3 mL Inhalation Given 07/13/24 1740) After reviewing the items above, I did look at previous medical documentation, such as recent hospitalizations, office visits, and/or recent consultations with PCP/specialist. SDOH: Another factor that I considered in Brayan's care was his Social Determinants of Health (SDOH). During this ED encounter, he did NOT appear to have any significant issues identified. LAB TESTING: Labs were considered, but not obtained during this encounter RADIOLOGY: I did consider radiological studies for Brayan's care today. Radiology testing was notable for no hemorrhage or mass effect on my independent review of CT of the brain DIFFERENTIAL DIAGNOSES: Some general clinical impressions that I considered included traumatic brain injury, contusion, syncope ED COURSE: While emergency department patient's work of breathing was increasing and he was wheezing. He notes that if he were at home he would be using breathing treatment for the same. He does not feel like he has been having trouble breathing or significant cough or wheezing or fever increased from baseline generally. He has normalization of his breathing after DuoNeb in the emergency department and has plenty of his medications at home. Imaging is benign. He is discharged in stable condition On this particular ED encounter, I did utilize shared decision making. After consideration of the risks of hospitalization such as nosocomial infections, falls, thromboembolic disease as well as being discharged(worsening condition or complications up to cardiopulmonary arrest) at this time the most appropriate disposition for Brayan is Discharged . IMPRESSION 1. Fall, initial encounter 2. Closed head injury, initial encounter 3. Wheezing Past Medical History Past Medical History: Diagnosis Date Atopic eczema BPH (benign prostatic hyperplasia) Degenerative disc disease, lumbar Diverticulitis Hepatic cyst High coronary artery calcium score Hypertension Lung nodule Obese Renal cyst Past Surgical History Past Surgical History: Procedure Laterality Date PROSTATE SURGERY TESTICLE SURGERY Left Family History History reviewed. No pertinent family history. Social History Social History Tobacco Use Smoking status: Never Smokeless tobacco: Current Types: Chew Vaping Use Vaping status: Never Used Substance Use Topics Alcohol use: No Drug use: No Allergies Allergies Allergen Reactions Levaquin [Levofloxacin] Anaphylaxis Nut - Unspecified Rash Peanut allergy Medications Active Home Medications Medication Sig Take Last Dose On Take Morning of Surgery Comment(s) amLODIPine (NORVASC) 5 MG tablet Take 1 tablet by mouth daily. apixaban 5 mg Tab Take by mouth . aspirin 81 MG EC tablet Take 1 tablet by mouth daily. atorvastatin (LIPITOR) 40 MG tablet Take 40 mg by mouth daily . cholecalciferol, vitamin D3, (VITAMIN D3) 2,000 unit cap Take 1 tablet by mouth 2 (two) times a day . clotrimazole-betamethaso ne (LOTRISONE) cream Apply 1 application topically 2 (two) times a day as needed. coenzyme Q10 (CO Q-10) 100 mg capsule Take 100 mg by mouth daily. finasteride (PROSCAR) 5 mg tablet Take 5 mg by mouth daily. lisinopril-hydrochloroth iazide (PRINZIDE,ZESTORETIC) 10-12.5 mg per tablet Take 1 tablet (more content not included)... [facility] XR CHEST PA/APon 07-13-2024 XR CHEST PA/AP EXAMINATION: XR CHEST PA/AP 07/13/2024 5:36 pm HISTORY: ORDERING SYSTEM PROVIDED HISTORY: dyspnea, TECHNOLOGIST PROVIDED HISTORY: Illness/Other Reason for exam: pt has sob with fall today sob worse with exertion Cancer History: n Surgery, RadiationHistory: n Encounter Type: Initial Additional signs and symptoms: na ORDERING SYSTEM PROVIDED DIAGNOSIS CODES: COMPARISON: None FINDINGS: Trachea, mediastinum, diaphragm and bony elements are intact. Heart size is mildly prominent. The lungs are clear without nodule or pneumothorax or infiltrate or effusion. IMPRESSION: 1. Mild cardiomegaly. 2. The lungs are clear without infiltrate or effusion. Workstation ID: [id number] Dictated by: RICARDO OSBORN on FriJul 13, 2024 5:54:03 PM EST Transcribed by: RICARDO OSBORN on FriJul 13, 2024 5:54:03 PM EST Finalized by: RICARDO OSBORN on FriJul 13, 2024 5:54:03 PM EST [facility] Comment on above: Order Comment: Injur y/Trauma or Illness?:Illness/Other How long have you had these symptoms (acute/chronic)?:Acute Reason for exam?:pt has sob with fall today sob worse with exertion History of cancer?:n Surgeries, chemotherapy, or radiation?:n Type of Exam?:Initial Additional signs and symptoms?:na No Panel Informationon 07-12 Positive [facility] Urgent Care Visit Reporton 1 09-12-2023 Urgent Care Visit Report Normal [facility] Orthopedic Visit Reporton Orthopedic Visit Report Normal [facility] Cardiology Visit Reporton Cardiology Visit Report Normal [facility] Basic Metabolic Profile (BMP )on 06-03-2024 BUN/CRE 24.0 RATIO High - [facility] Comment on above: Performed By: #### L 500.2500 ####[facility] [address] [place], [address] CA,Total 9.1 mg/dL Normal 8.5-10.1 [facility] Comment on above: Performed By: #### L 500.2500 ####[facility] [address] [facility] [address] Chloride [Moles/Vol] 100 mmol/L Normal 98-107 [facility] Comment on above: Performed By: #### L 500.2500 ####[facility] [address] [place], [address] CO2 [Moles/Vol] 25.0 mmol/L Normal 21.0-32.0 [facility] Comment on above: Performed By: #### L 500.2500 ####[facility] [address] [place], [address] Creatinine [Mass/Vol] 1.29 mg/dL Normal 0.70-1.30 [facility] Comment on above: Result Comment: The validity of the calculated GFR GFRAA in patients over70 years has not been determined. Clinical correlation isessential. Performed By: #### L 500.2500 ####[facility] [address] [place], [address] EST GFR - AA 68 mL/min Normal >60 [facility] Comment on above: Result Comment: Afri can Grenadian GFR Calc Performed By: #### L 500.2500 ####[facility] [address] [place], [address] GAP 6 Normal 5-15 [facility] Comment on above: Performed By: #### L 500.2500 ####[facility] [address] [place], [address] GFR/1.73 sq M.predicted among non-blacks MDRD (S/P/Bld) [Vol rate/Area] 56 mL/min/{1.73_m2} Low >60 [facility] Comment on above: Result Comment: Non- GFR Calc Performed By: #### L 500.2500 ####[facility] [address] [place], [address] Glucose [Mass/Vol] 94 mg/dL Normal 74-106 [facility] Comment on above: Performed By: #### L 500.2500 ####[facility] [address] [place], [address] Potassium [Moles/Vol] 4.2 mmol/L Normal 3.5-5.1 [facility] Comment on above: Performed By: #### L 500.2500 ####[facility] [address] [place], [address] Sodium [Moles/Vol] 131 mmol/L Low 136-145 [facility] Comment on above: Performed By: #### L 500.2500 ####[facility] [address] [place], [address] Urea nitrogen [Mass/Vol] 31 mg/dL High 7-18 [facility] Comment on above: Performed By: #### L 500.2500 ####[facility] [address] [place], [address] Blood urea nitrogen (BUN)/cr eatinine ratioOrdered By: Robby Peralta on 06-03-2024 Blood urea nitrogen (BUN)/creatinine ratio 24.0 RATIO High 10-20 [facility] Calcium [Mass/Vol]Ordered By : Robby Peralta on 06-03-2024 Serum or plasma calcium measurement (mass/volume) 9.1 mg/dL 8.5-10.1 [facility] Carbon dioxide measurementOr dered By: Robby Peralta on 06-03-2024 Carbon dioxide measurement 25.0 mmol/L 21.0-32.0 [facility] Chloride measurementOrdered By: Robby Peralta on 06-03-2024 Chloride measurement 100 mmol/L 98-107 [facility] Creatinine [Mass/Vol]Ordered By: Robby Peralta on 06-03-2024 Serum or plasma creatinine measurement (mass/volume) 1.29 mg/dL 0.70-1.30 [facility] Estimated glomerular filtrat ion rate (GFR) AmericanOrdered By: Robby Peralta on 06-03-2024 Estimated glomerular filtration rate (GFR) 68 mL/min >60 [facility] Glomerular filtration rate ( GFR) estimationOrdered By: Robby Peralta on 06-03-2024 Glomerular filtration rate (GFR) estimation 56 mL/min Low >60 [facility] Glucose measurementOrdered B y: Robby Peralta on 06-03-2024 Glucose measurement 94 mg/dL 74-106 [facility] Potassium measurementOrdered By: Robby Peralta on 06-03-2024 Potassium measurement 4.2 mmol/L 3.5-5.1 [facility] Serum anion gap measurementO rdered By: Robby Peralta on 06-03-2024 Serum anion gap measurement 6 5-15 [facility] Sodium levelOrdered By: Robby Peralta on 06-03-2024 Sodium level 131 mmol/L Low 136-145 [facility] Urea nitrogen [Mass/Vol]Orde red By: Robby Peralta on 06-03-2024 Serum or plasma urea nitrogen measurement (mass/volume) 31 mg/dL High 7-18 [facility] Abdomen/Pelvis without Conto n 05-19-2024 Abdomen/Pelvis without Cont Normal [facility] Basic Metabolic Profile (BMP )on 05-19-2024 BUN/CRE 21.6 RATIO High 10-20 [facility] Comment on above: Performed By: #### L 100.0100, L500.2500 ####[facility] [address] [place], [address] CA,Total 9.2 mg/dL Normal 8.5-10.1 [facility] Comment on above: Performed By: #### L 100.0100, L500.2500 ####[facility] [address] [place], [address] Chloride [Moles/Vol] 101 mmol/L Normal 98-107 [facility] Comment on above: Performed By: #### L 100.0100, L500.2500 ####[facility] [address] [place], [address] CO2 [Moles/Vol] 23.0 mmol/L Normal 21.0-32.0 [facility] Comment on above: Performed By: #### L 100.0100, L500.2500 ####[facility] [address] [place], [address] Creatinine [Mass/Vol] 1.62 mg/dL High 0.70-1.30 [facility] Comment on above: Result Comment: The validity of the calculated GFR GFRAA in patients over70 years has not been determined. Clinical correlation isessential. Performed By: #### L 100.0100, L500.2500 ####[facility] [address] [place], [address] EST GFR - AA 52 mL/min Low >60 [facility] Comment on above: Result Comment: Afri can Grenadian GFR Calc Performed By: #### L 100.0100, L500.2500 ####[facility] [address] [place], [address] GAP 7 Normal 5-15 [facility] Comment on above: Performed By: #### L 100.0100, L500.2500 ####[facility] [address] [place], [address] GFR/1.73 sq M.predicted among non-blacks MDRD (S/P/Bld) [Vol rate/Area] 43 mL/min/{1.73_m2} Low >60 [facility] Comment on above: Result Comment: Non- GFR Calc Performed By: #### L 100.0100, L500.2500 ####[facility] [address] [place], [address] Glucose [Mass/Vol] 99 mg/dL Normal 74-106 [facility] Comment on above: Performed By: #### L 100.0100, L500.2500 ####[facility] [address] [place], [address] Potassium [Moles/Vol] 4.0 mmol/L Normal 3.5-5.1 [facility] Comment on above: Performed By: #### L 100.0100, L500.2500 ####[facility] [address] [place], [address] Sodium [Moles/Vol] 131 mmol/L Low 136-145 [facility] Comment on above: Performed By: #### L 100.0100, L500.2500 ####[facility] [address] [place], [address] Urea nitrogen [Mass/Vol] 35 mg/dL High 7-18 [facility] Comment on above: Performed By: #### L 100.0100, L500.2500 ####[facility] [address] [place], [address] CBC W/Diff, Automatedon 10-3 0-2023 Absolute Lymph 1.21 X10 3/uL Normal 0.83-4.51 [facility] Comment on above: Performed By: #### L 100.0100, L500.2500 ####[facility] [address] [place], [address] Absolute Neut 5.6 X10 3/uL Normal 2.0-7.7 [facility] Comment on above: Performed By: #### L 100.0100, L500.2500 ####[facility] [address] [place], [address] Basophils/100 WBC (Bld) 0.9 % Normal 0-1 [facility] Comment on above: Performed By: #### L 100.0100, L500.2500 ####[facility] [address] [place], [address] Eosinophils/100 WBC (Bld) 1.0 % Normal 0-5 [facility] Comment on above: Performed By: #### L 100.0100, L500.2500 ####[facility] [address] [place], [address] Erythrocyte distribution width (RBC) [Ratio] 13.6 % Normal 11.6-14.6 [facility] Comment on above: Performed By: #### L 100.0100, L500.2500 ####[facility] [address] [place], [address] Hematocrit (Bld) [Volume fraction] 38.4 % Low 40-54 [facility] Comment on above: Performed By: #### L 100.0100, L500.2500 ####[facility] [address] [place], [address] Hemoglobin (Bld) [Mass/Vol] 12.9 g/dL Low 13.0-16.5 [facility] Comment on above: Performed By: #### L 100.0100, L500.2500 ####[facility] [address] [place], [address] IG% 0.400 Normal 0.0-0.9 [facility] Comment on above: Result Comment: IG% - Immature Granulocytes (promyelocytes, myelocytes andmetamyelocytes) > 1% indicates that a LEFT SHIFT is Present. Performed By: #### L 100.0100, L500.2500 ####[facility] [address] [place], [address] Lymphocytes/100 WBC (Bld) 15.8 % Low 19-41 [facility] Comment on above: Performed By: #### L 100.0100, L500.2500 ####[facility] [address] [place], [address] MCH (RBC) [Entitic mass] 30.5 pg Normal 27.0-32.0 [facility] Comment on above: Performed By: #### L 100.0100, L500.2500 ####[facility] [address] [place], [address] MCHC (RBC) [Mass/Vol] 33.6 g/dL Normal 32-36 [facility] Comment on above: Performed By: #### L 100.0100, L500.2500 ####[facility] [address] [place], [address] MCV (RBC) [Entitic vol] 90.8 fL Normal 80-94 [facility] Comment on above: Performed By: #### L 100.0100, L500.2500 ####[facility] [address] [place], [address] Monocytes/100 WBC (Bld) 8.9 % Normal 0-10 [facility] Comment on above: Performed By: #### L 100.0100, L500.2500 ####[facility] [address] [place], [address] Neutrophils/100 WBC (Bld) 73.0 % High 47-70 [facility] Comment on above: Performed By: #### L 100.0100, L500.2500 ####[facility] [address] [place], [address] Nucleated RBC (Bld) [#/Vol] 0 10*3/uL Normal 0-5 [facility] Comment on above: Performed By: #### L 100.0100, L500.2500 ####[facility] [address] [place], [address] Platelet mean volume (Bld) [Entitic vol] 10.3 fL Normal 6.2-12.0 [facility] Comment on above: Performed By: #### L 100.0100, L500.2500 ####[facility] [address] [place], [address] Platelets (Bld) [#/Vol] 200 10*3/uL Normal 150-450 [facility] Comment on above: Performed By: #### L 100.0100, L500.2500 ####[facility] [address] [place], [address] RBC (Bld) [#/Vol] 4.23 10*6/uL Low 4.6-6.2 [facility] Comment on above: Performed By: #### L 100.0100, L500.2500 ####[facility] [address] [place], [address] RDW SD 45.6 fl High 35.1-43.9 [facility] Comment on above: Performed By: #### L 100.0100, L500.2500 ####[facility] [address] [place], [address] WBC (Bld) [#/Vol] 7.7 10*3/uL Normal 4.4-11.0 [facility] Comment on above: Performed By: #### L 100.0100, L500.2500 ####[facility] [address] [place], [address] Emergency Department Summary on 05-19-2024 Emergency Department Summary Normal [facility] Urinalysis, Completeon 05-19 BACTERIA 0 SEEN Normal None Seen [facility] Comment on above: Order Comment: CLEAN CATCH Performed By: #### L 400.0001 ####[facility] [address] [place], [address] EPI,SQUAMOUS 0 SEEN Normal 0-5 [facility] Comment on above: Order Comment: CLEAN CATCH Performed By: #### L 400.0001 ####[facility] [address] [place], [address] Mucus Ql (Urine sed) 0 SEEN Normal [facility] Comment on above: Order Comment: CLEAN CATCH Performed By: #### L 400.0001 ####[facility] [address] [place], [address] RBC 0 SEEN Normal 0-5 [facility] Comment on above: Order Comment: CLEAN CATCH Performed By: #### L 400.0001 ####[facility] [address] [place], [address] WBC 0 SEEN Normal 0-5 [facility] Comment on above: Order Comment: CLEAN CATCH Performed By: #### L 400.0001 ####[facility] [address] [place], [address] Cardiology Visit Reporton Cardiology Visit Report Normal [facility] Orthopedic Visit Reporton Orthopedic Visit Report Normal [facility] Uric Acidon 05-07-2024 URIC 7.7 mg/dL High 3.5-7.2 [facility] Comment on above: Result Comment: The drugs N-Acetylcysteine and Metamizole may falselydepress this assay. Performed By: #### L 501.1400 ####[facility] [address] [place], [address] Office Visit Reporton 2023 Office Visit Report Normal [facility] MR/BMS.IMBon 04-15-2024 MR/BMS.IMB Normal [facility] 12 Lead EKGon 04-07-2024 12 Lead EKG Normal [facility] BNP,B-Type NATRIURETIC PEPTI Rubina 04-07-2024 Natriuretic peptide B (Bld) [Mass/Vol] 152.0 pg/mL High 0-100 [facility] Comment on above: Performed By: #### L 501.5200, L501.4020, L503.6620, L100.0100, L500.2500 ####[facility] [address] [place], [address] Basic Metabolic Profile (BMP )on 04-07-2024 BUN/CRE 20.0 RATIO Normal 10-20 [facility] Comment on above: Order Comment: 'TROP ' Serial specimen #1, #2 or #3: 1 Performed By: #### L 501.5200, L501.4020, L503.6620, L100.0100, L500.2500 ####[facility] [address] [place], [address] CA,Total 9.7 mg/dL Normal 8.5-10.1 [facility] Comment on above: Order Comment: 'TROP ' Serial specimen #1, #2 or #3: 1 Performed By: #### L 501.5200, L501.4020, L503.6620, L100.0100, L500.2500 ####[facility] [address] [place], [address] Chloride [Moles/Vol] 94 mmol/L Low 98-107 [facility] Comment on above: Order Comment: 'TROP ' Serial specimen #1, #2 or #3: 1 Performed By: #### L 501.5200, L501.4020, L503.6620, L100.0100, L500.2500 ####[facility] [address] [place], [address] CO2 [Moles/Vol] 22.0 mmol/L Normal 21.0-32.0 [facility] Comment on above: Order Comment: 'TROP ' Serial specimen #1, #2 or #3: 1 Performed By: #### L 501.5200, L501.4020, L503.6620, L100.0100, L500.2500 ####[facility] [address] [place], [address] Creatinine [Mass/Vol] 1.15 mg/dL Normal 0.70-1.30 [facility] Comment on above: Order Comment: 'TROP ' Serial specimen #1, #2 or #3: 1 Result Comment: The validity of the calculated GFR GFRAA in patients over70 years has not been determined. Clinical correlation isessential. Performed By: #### L 501.5200, L501.4020, L503.6620, L100.0100, L500.2500 ####[facility] [address] [place], [address] EST GFR - AA 77 mL/min Normal >60 [facility] Comment on above: Order Comment: 'TROP ' Serial specimen #1, #2 or #3: 1 Result Comment: Afri can [place] GFR Calc Performed By: #### L 501.5200, L501.4020, L503.6620, L100.0100, L500.2500 ####[facility] [address] [place], [address] GAP 11 Normal 5-15 [facility] Comment on above: Order Comment: 'TROP ' Serial specimen #1, #2 or #3: 1 Performed By: #### L 501.5200, L501.4020, L503.6620, L100.0100, L500.2500 ####[facility] [address] [place], [address] GFR/1.73 sq M.predicted among non-blacks MDRD (S/P/Bld) [Vol rate/Area] 64 mL/min/{1.73_m2} Normal >60 [facility] Comment on above: Order Comment: 'TROP ' Serial specimen #1, #2 or #3: 1 Result Comment: Non- GFR Calc Performed By: #### L 501.5200, L501.4020, L503.6620, L100.0100, L500.2500 ####[facility] [address] [place], [address] Glucose [Mass/Vol] 114 mg/dL High 74-106 [facility] Comment on above: Order Comment: 'TROP ' Serial specimen #1, #2 or #3: 1 Result Comment: Fast ing Glucose result from 100 to 125 mg/dLsuggests IMPAIRED HOMEOSTASIS per A.D.A. criteria. Performed By: #### L 501.5200, L501.4020, L503.6620, L100.0100, L500.2500 ####[facility] [address] [place], [address] Potassium [Moles/Vol] 4.0 mmol/L Normal 3.5-5.1 [facility] Comment on above: Order Comment: 'TROP ' Serial specimen #1, #2 or #3: 1 Performed By: #### L 501.5200, L501.4020, L503.6620, L100.0100, L500.2500 ####[facility] [address] [place], [address] Sodium [Moles/Vol] 127 mmol/L Low 136-145 [facility] Comment on above: Order Comment: 'TROP ' Serial specimen #1, #2 or #3: 1 Performed By: #### L 501.5200, L501.4020, L503.6620, L100.0100, L500.2500 ####[facility] [address] [place], [address] Urea nitrogen [Mass/Vol] 23 mg/dL High 7-18 [facility] Comment on above: Order Comment: 'TROP ' Serial specimen #1, #2 or #3: 1 Performed By: #### L 501.5200, L501.4020, L503.6620, L100.0100, L500.2500 ####[facility] [address] [place], [address] CBC W/Diff, Automatedon 03-21 Absolute Lymph 0.88 X10 3/uL Normal 0.83-4.51 [facility] Comment on above: Performed By: #### L 501.5200, L501.4020, L503.6620, L100.0100, L500.2500 ####[facility] [address] [place], [address] Absolute Neut 5.1 X10 3/uL Normal 2.0-7.7 [facility] Comment on above: Performed By: #### L 501.5200, L501.4020, L503.6620, L100.0100, L500.2500 ####[facility] [address] [place], [address] Basophils/100 WBC (Bld) 0.9 % Normal 0-1 [facility] Comment on above: Performed By: #### L 501.5200, L501.4020, L503.6620, L100.0100, L500.2500 ####[facility] [address] [place], [address] Eosinophils/100 WBC (Bld) 1.6 % Normal 0-5 [facility] Comment on above: Performed By: #### L 501.5200, L501.4020, L503.6620, L100.0100, L500.2500 ####[facility] [address] [place], [address] Erythrocyte distribution width (RBC) [Ratio] 12.2 % Normal 11.6-14.6 [facility] Comment on above: Performed By: #### L 501.5200, L501.4020, L503.6620, L100.0100, L500.2500 ####[facility] [address] [place], [address] Hematocrit (Bld) [Volume fraction] 36.5 % Low 40-54 [facility] Comment on above: Performed By: #### L 501.5200, L501.4020, L503.6620, L100.0100, L500.2500 ####[facility] [address] [place], [address] Hemoglobin (Bld) [Mass/Vol] 12.5 g/dL Low 13.0-16.5 [facility] Comment on above: Performed By: #### L 501.5200, L501.4020, L503.6620, L100.0100, L500.2500 ####[facility] [address] [place], [address] IG% 0.300 Normal 0.0-0.9 [facility] Comment on above: Result Comment: IG% - Immature Granulocytes (promyelocytes, myelocytes andmetamyelocytes) > 1% indicates that a LEFT SHIFT is Present. Performed By: #### L 501.5200, L501.4020, L503.6620, L100.0100, L500.2500 ####[facility] [address] [place], [address] Lymphocytes/100 WBC (Bld) 12.9 % Low 19-41 [facility] Comment on above: Performed By: #### L 501.5200, L501.4020, L503.6620, L100.0100, L500.2500 ####[facility] [address] [place], [address] MCH (RBC) [Entitic mass] 30.0 pg Normal 27.0-32.0 [facility] Comment on above: Performed By: #### L 501.5200, L501.4020, L503.6620, L100.0100, L500.2500 ####[facility] [address] [place], [address] MCHC (RBC) [Mass/Vol] 34.2 g/dL Normal 32-36 [facility] Comment on above: Performed By: #### L 501.5200, L501.4020, L503.6620, L100.0100, L500.2500 ####[facility] [address] [place], [address] MCV (RBC) [Entitic vol] 87.7 fL Normal 80-94 [facility] Comment on above: Performed By: #### L 501.5200, L501.4020, L503.6620, L100.0100, L500.2500 ####[facility] [address] [place], [address] Monocytes/100 WBC (Bld) 10.1 % High 0-10 [facility] Comment on above: Performed By: #### L 501.5200, L501.4020, L503.6620, L100.0100, L500.2500 ####[facility] [address] [place], [address] Neutrophils/100 WBC (Bld) 74.2 % High 47-70 [facility] Comment on above: Performed By: #### L 501.5200, L501.4020, L503.6620, L100.0100, L500.2500 ####[facility] [address] [place], [address] Nucleated RBC (Bld) [#/Vol] 0 10*3/uL Normal 0-5 [facility] Comment on above: Performed By: #### L 501.5200, L501.4020, L503.6620, L100.0100, L500.2500 ####[facility] [address] [place], [address] Platelet mean volume (Bld) [Entitic vol] 10.0 fL Normal 6.2-12.0 [facility] Comment on above: Performed By: #### L 501.5200, L501.4020, L503.6620, L100.0100, L500.2500 ####[facility] [address] [place], [address] Platelets (Bld) [#/Vol] 249 10*3/uL Normal 150-450 [facility] Comment on above: Performed By: #### L 501.5200, L501.4020, L503.6620, L100.0100, L500.2500 ####[facility] [address] [place], [address] RBC (Bld) [#/Vol] 4.16 10*6/uL Low 4.6-6.2 [facility] Comment on above: Performed By: #### L 501.5200, L501.4020, L503.6620, L100.0100, L500.2500 ####[facility] [address] [place], [address] RDW SD 39.1 fl Normal 35.1-43.9 [facility] Comment on above: Performed By: #### L 501.5200, L501.4020, L503.6620, L100.0100, L500.2500 ####[facility] [address] [place], [address] WBC (Bld) [#/Vol] 6.8 10*3/uL Normal 4.4-11.0 [facility] Comment on above: Performed By: #### L 501.5200, L501.4020, L503.6620, L100.0100, L500.2500 ####[facility] [address] [place], [address] Chest PA and Lateralon 04-07 Chest PA and Lateral Normal [facility] Emergency Department Summary on 04-07-2024 Emergency Department Summary Normal [facility] L501.4020on 04-07-2024 TROPONIN-I HS 56 pg/mL Normal 3.0-78.0 [facility] Comment on above: Order Comment: 'TROP ' Serial specimen #1, #2 or #3: 1 Result Comment: [employer] Note: New Test Units and Gender Specific Reference Ranges. For more information see Policy Stat Procedure [place] High Sensitivity Troponin (TNIH) and attachments. Performed By: #### L 501.5200, L501.4020, L503.6620, L100.0100, L500.2500 ####[facility] [address] [place], [address] Magnesiumon 04-07-2024 Magnesium [Mass/Vol] 1.9 mg/dL Normal 1.6-2.6 [facility] Comment on above: Order Comment: 'TROP ' Serial specimen #1, #2 or #3: 1 Performed By: #### L 501.5200, L501.4020, L503.6620, L100.0100, L500.2500 ####[facility] [address] [place], [address] Knee 4 or More Viewson 03-17 Knee 4 or More Views Normal [facility] Orthopedic Visit Reporton Orthopedic Visit Report Normal [facility] Cardiology Visit Reporton Cardiology Visit Report Normal [facility] Orthopedic Visit Reporton Orthopedic Visit Report Normal [facility] Orthopedic Visit Reporton Orthopedic Visit Report Normal [facility] ED Prov Noteon 12-22-2023 ED Prov Note [facility] EMERGENCY DEPARTMENT [place] NOTE: NAME: Brayan Stevens CSN: [id number] 88 y.o. PCP: [place] MD History: Chief Complaint: DENTAL BLEEDING HPI: The history was obtained from the patient. Brayan is a 88 y.o. male who presents [...] of continued bleeding early this morning at [facility] ED. Bleeding was able to be discontinued [...] mouth 2 (two) times a day . clotrimazole-betamethaso ne (LOTRISONE) cream Apply 1 application topically 2 (two) times a day as needed. coenzyme Q10 (CO Q-10) 100 mg capsule Take 100 mg by mouth daily. finasteride (PROSCAR) 5 mg tablet Take 5 mg by mouth daily. lisinopril-hydrochloroth iazide (PRINZIDE,ZESTORETIC) 10-12.5 mg per tablet Take 1 [...] Medical Decision Making: I did personally review Brayan's past medical history, surgical history, social history, [...] at previous (more content not included)... Normal [facility] ED Prov Note HPI: 12/22/2023, Time: @MOHIT@ Brayan Stevens is a 88 y.o. male presenting [...] are negative. PAST HISTORY Past Medical History: @[facility]@ Past Surgical History: has a past surgical [...] Allergies: Levaquin [levofloxacin] and Nut - unspecified -- RESULTS - All laboratory and radiology results have been personally reviewed by myself LABS: No results found for this or any previous visit. RADIOLOGY: Interpreted by Radiologist. No orders to display - NURSING NOTES AND VITALS REVIEWED --- The nursing notes within the ED encounter and vital signs as below have been reviewed. BP 135/84 (BP Location: Left arm, Patient Position: Sitting) Pulse 72 Temp 97.1 degrees F (36.2 degrees C) (Temporal) Resp 18 SpO2 98% Oxygen Saturation Interpretation: Normal ---PHYSICAL EXAM Constitutional/General: Alert and oriented x3, well [...] rash Neurologic: GCS 15, Psych: Normal Affect ------ ED COURSE/MEDICAL DECISION MAKING ---- Medications phenylephrine (SRINIVASAN-SYNEPHRINE) 0.5 % nasal spray 2 spray (2 sprays Other Given 12/22/23 0534) Medical Decision Making: Bleeding stopped using wound [...] and they are agreeable with the plan. --------- IMPRESSION AND DISPOSITION --------- IMPRESSION 1. Mouth bleeding DISPOSITION Disposition: discharged to home Patient condition is stable Summation Patient Course: Much improved ED Medications administered this visit: Medications phenylephrine (SRINIVASAN-SYNEPHRINE) 0.5 % nasal spray 2 spray (2 sprays Other Given 12/22/23 9729) New Prescriptions from this visit: Follow-up: Your oral surgeon this morning Final Impression: 1. Mouth bleeding (Please note that portions of this note were completed with a voice recognition program. Efforts were made to edit the dictations but occasionally words are mis-transcribed.) Honey Ford MD 12/22/23 0608 AUTHENTICATED BY HONEY FORD, ON 12/22/2023 06:08:36 [facility] ED Prov Note HPI: 12/22/2023, Time: @NOWNR@ Brayan Stevens is a 88 y.o. male presenting [...] are negative. PAST HISTORY Past Medical History: @[facility]@ Past Surgical History: has a past surgical [...] Allergies: Levaquin [levofloxacin] and Nut - unspecified -- RESULTS - All laboratory and radiology results have been personally reviewed by myself LABS: No results found for this or any previous visit. RADIOLOGY: Interpreted by Radiologist. No orders to display - NURSING NOTES AND VITALS REVIEWED --- The nursing notes within the ED encounter and vital signs as below have been reviewed. BP 129/84 Pulse 67 Temp 98 degrees F (36.7 degrees C) Resp 16 SpO2 98% Oxygen Saturation Interpretation: Normal ---PHYSICAL EXAM Constitutional/General: Alert and oriented x3, well [...] rash Neurologic: GCS 15, Psych: Normal Affect ------ ED COURSE/MEDICAL DECISION MAKING ---- Medications - No data to display Medical [...] and they are agreeable with the plan. --------- IMPRESSION AND DISPOSITION --------- IMPRESSION No diagnosis found. DISPOSITION Disposition: discharged [...] AUTHENTICATED BY HONEY FORD, ON 12/22/2023 01:41:49 [facility] Basophil percentageOrdered B y: Robby Peralta on 11-17-2023 Chloride [Moles/Vol] 105 mmol/L 98-107 [facility] Glucose [Mass/Vol] 119 mg/dL 74-106 [facility] Comment on above: Fasting Glucose resu lt from 100 to 125 mg/dL suggests IMPAIRED HOMEOSTASIS per A.D.A. criteria. Potassium [Moles/Vol] 4.3 mmol/L 3.5-5.1 [facility] Sodium [Moles/Vol] 134 mmol/L 136-145 [facility] Laboratory - Chemistry and C hemistry - challengeOrdered By: Robby Peralta on 11-17-2023 CO2 [Moles/Vol] 20.0 mmol/L 21.0-32.0 [facility] Urea nitrogen/Creatinine [Mass ratio] 25.0 mg/mg 10-20 [facility] No Panel InformationOrdered By: Robby Peralta on 11-17-2023 Estimated GFR (MDRD) Amer 68 mL/min >60 [facility] Comment on above: GFR Calc Estimated GFR (MDRD) Non-Af Amer 57 mL/min >60 [facility] Comment on above: Non- GFR Calc Serum or plasma calcium todd urement (mass/volume)Ordered By: Robby Peralta on 11-17-2023 Calcium [Mass/Vol] 9.1 mg/dL 8.5-10.1 [facility] Serum or plasma creatinine m easurement (mass/volume)Ordered By: Robby Peralta on 11-17-2023 Creatinine [Mass/Vol] 1.28 mg/dL 0.70-1.30 [facility] Comment on above: The validity of the calculated GFR & GFRAA in patients over 70 years has not been determined. Clinical correlation is essential. Serum or plasma urea nitroge n measurement (mass/volume)Ordered By: Robby Peralta on 11-17-2023 Urea nitrogen [Mass/Vol] 32 mg/dL 7-18 [facility] Thin prep Papanicolaou smear with manual screeningOrdered By: Robby Peralta on 11-17-2023 Thin prep Papanicolaou smear with manual screening 9 5-15 [facility] Basophil percentageOrdered B y: Robby Peralta on 11-04-2023 Bilirubin [Mass/Vol] 0.80 mg/dL 0.20-1.00 [facility] Comment on above: For patients on eltr ombopag therapy, use of Dimension [place] TBIL is not recommended. Chloride [Moles/Vol] 100 mmol/L 98-107 [facility] Glucose [Mass/Vol] 92 mg/dL 74-106 [facility] Potassium [Moles/Vol] 4.5 mmol/L 3.5-5.1 [facility] Protein [Mass/Vol] 7.0 g/dL 6.4-8.2 [facility] Sodium [Moles/Vol] 130 mmol/L 136-145 [facility] Laboratory - Chemistry and C hemistry - challengeOrdered By: Robby Peralta on 11-04-2023 Albumin/Globulin [Mass ratio] 0.9 {ratio} 0.9-2.4 [facility] ALP [Catalytic activity/Vol] 106 U/L 45-117 [facility] ALT [Catalytic activity/Vol] 32 U/L 16-61 [facility] CO2 [Moles/Vol] 22.0 mmol/L 21.0-32.0 [facility] Globulin (S) [Mass/Vol] 3.6 g/dL 2.2-4.2 [facility] Urea nitrogen/Creatinine [Mass ratio] 21.8 mg/mg 10-20 [facility] No Panel InformationOrdered By: Robby Peralta on 11-04-2023 Estimated GFR (MDRD) Amer 58 mL/min >60 [facility] Comment on above: GFR Calc Estimated GFR (MDRD) Non-Af Amer 48 mL/min >60 [facility] Comment on above: Non- GFR Calc Serum or plasma calcium todd urement (mass/volume)Ordered By: Robby Peralta on 11-04-2023 Calcium [Mass/Vol] 9.1 mg/dL 8.5-10.1 [facility] Serum or plasma creatinine m easurement (mass/volume)Ordered By: Robby Peralta on 11-04-2023 Creatinine [Mass/Vol] 1.47 mg/dL 0.70-1.30 [facility] Comment on above: The validity of the calculated GFR & GFRAA in patients over 70 years has not been determined. Clinical correlation is essential. Serum or plasma urea nitroge n measurement (mass/volume)Ordered By: Robby Peralta on 11-04-2023 Urea nitrogen [Mass/Vol] 32 mg/dL 7-18 [facility] Thin prep Papanicolaou smear with manual screeningOrdered By: Robby Peralta on 11-04-2023 Thin prep Papanicolaou smear with manual screening 3.4 g/dL 3.2-5.0 [facility] Thin prep Papanicolaou smear with manual screening 32 U/L 15-37 [facility] Thin prep Papanicolaou smear with manual screening 8 5-15 [facility] Basophil percentageOrdered B y: La Woods on 10-20-2023 Basophil percentage >100 SEEN /hpf 0-5 [facility] Bilirubin Test strip Ql (U)O rdered By: La Woods on 10-20-2023 Bilirubin Ql (U) Negative Negative [facility] Culture, urineOrdered By: Mercy Woods on 10-20-2023 Bacteria identified Cx Nom (U) Klebsiella pneumoniae sp pneum [facility] Ketones Test strip Ql (U)Ord ered By: La Woods on 10-20-2023 Ketones Ql (U) Negative Negative [facility] Mucus LM Ql (Urine sed)Order ed By: La Woods on 10-20-2023 Mucus Ql (Urine sed) 0 SEEN /hpf [facility] Nitrite Test strip Ql (U)Ord ered By: La Woods on 10-20-2023 Nitrite Ql (U) Negative Negative [facility] No Panel InformationOrdered By: La Woods on 10-20-2023 Urine RBC 0-5 SEEN /hpf 0-5 [facility] Protein Test strip Ql (U)Ord ered By: La Woods on 10-20-2023 Protein Ql (U) Negative Negative [facility] Squamous epithelial cells de tection in urine sediment by light microscopyOrdered By: La Woods on 10-20-2023 Epithelial cells.squamous LM Ql (Urine sed) 0-5 SEEN /hpf 0-5 [facility] Urine blood detectionOrdered By: La Woods on 10-20-2023 RBC Ql (U) 25 /ul Negative [facility] Urine clarityOrdered By: [place] Woods on 10-20-2023 Clarity (U) Sl. Cloudy Clear [facility] Urine color determinationOrd ered By: La Woods on 10-20-2023 Color (U) Yellow Yellow [facility] Urine glucose detectionOrder ed By: La Woods on 10-20-2023 Glucose Ql (U) Normal mg/dl Normal [facility] Urine leukocyte esterase det ection by dipstickOrdered By: La Woods on 10-20-2023 Leukocyte esterase Test strip Ql (U) 500 /ul Negative [facility] Urine pHOrdered By: La yung on 10-20-2023 pH (U) 6.0 [pH] 5.0 - 8.0 [facility] Urine sediment bacteria coun t by microscopy (number/high power field)Ordered By: La Woods on 10-20-2023 Bacteria LM.HPF (Urine sed) [#/Area] 1 /[HPF] None Seen [facility] Urine specific gravity measu rementOrdered By: La Woods on 10-20-2023 Specific gravity (U) [Rel density] 1.010 1.002-1.030 [facility] Urine urobilinogen measureme ntOrdered By: La Woods on 10-20-2023 Urobilinogen Ql (U) Normal mg/dl Normal [facility] Basophil percentageOrdered B y: Sydnie Lebron on 10-06-2023 Basophil percentage 25-50 SEEN /hpf 0-5 [facility] Bilirubin Test strip Ql (U)O rdered By: Sydnie Lebron on 10-06-2023 Bilirubin Ql (U) Negative Negative [facility] Calcium oxalate crystals det ection in urine sediment by light microscopyOrdered By: Sydnie Lebron on 10-06-2023 Calcium oxalate crystals LM Ql (Urine sed) RARE /hpf [facility] Culture, urineOrdered By: Jose Armando Lebron on 10-06-2023 Bacteria identified Cx Nom (U) Klebsiella pneumoniae sp pneum [facility] Ketones Test strip Ql (U)Ord ered By: Sydnie Lebron on 10-06-2023 Ketones Ql (U) 5 mg/dl Negative [facility] Mucus LM Ql (Urine sed)Order ed By: Sydnie Lebron on 10-06-2023 Mucus Ql (Urine sed) 0 SEEN /hpf [facility] Nitrite Test strip Ql (U)Ord ered By: Sydnie Lebron on 10-06-2023 Nitrite Ql (U) Positive Negative [facility] No Panel InformationOrdered By: Sydnie Lebron on 10-06-2023 Urine RBC 25-50 SEEN /hpf 0-5 [facility] Protein Test strip Ql (U)Ord ered By: Sydnie Lebron on 10-06-2023 Protein Ql (U) 100 mg/dl Negative [facility] Squamous epithelial cells de tection in urine sediment by light microscopyOrdered By: Sydnie Lebron on 10-06-2023 Epithelial cells.squamous LM Ql (Urine sed) 0 SEEN /hpf 0-5 [facility] Urine blood detectionOrdered By: Sydnie Lebron on 10-06-2023 RBC Ql (U) 250 /ul Negative [facility] Urine clarityOrdered By: Trevor Lebron on 10-06-2023 Clarity (U) Cloudy Clear [facility] Urine color determinationOrd ered By: Sydnie Lebron on 10-06-2023 Color (U) Yellow Yellow [facility] Urine glucose detectionOrder ed By: Sydnie Lebron on 10-06-2023 Glucose Ql (U) Normal mg/dl Normal [facility] Urine leukocyte esterase det ection by dipstickOrdered By: Sydnie Lebron on 10-06-2023 Leukocyte esterase Test strip Ql (U) 500 /ul Negative [facility] Urine pHOrdered By: Leon Lebron on 10-06-2023 pH (U) 6.0 [pH] 5.0 - 8.0 [facility] Urine sediment bacteria coun t by microscopy (number/high power field)Ordered By: Sydnie Lebron on 10-06-2023 Bacteria LM.HPF (Urine sed) [#/Area] 1 /[HPF] None Seen [facility] Urine specific gravity measu rementOrdered By: Sydnie Lebron on 10-06-2023 Specific gravity (U) [Rel density] 1.015 1.002-1.030 [facility] Urine urobilinogen measureme ntOrdered By: Sydnie Lebron on 10-06-2023 Urobilinogen Ql (U) Normal mg/dl Normal [facility] Laboratory - Chemistry and C hemistry - challengeon 10-04-2023 Bilirubin Ql (U) Negative [facility] Glucose Ql (U) Negative [facility] Ketones Ql (U) Negative [facility] pH (U) 5.0 [pH] [facility] Specific gravity (U) [Rel density] 1.015 [facility] Urobilinogen (U) [Mass/Vol] Negative [facility] Laboratory - Hematology and Cell countson 10-04-2023 Hemoglobin Ql (U) Hemolyzed [facility] Laboratory - Specimen inform ationon 10-04-2023 Clarity (U) Cloudy [facility] Color (U) DARK YELLOW [facility] Laboratory - Urinalysison Nitrite Ql (U) Positive [facility] Protein Ql (U) Negative [facility] No Panel Informationon 10-03 Urine Leukocytes Positive [facility] Urine Non-Hemolyzed Blood Large [facility] Absolute lymphocyte countOrd ered By: La Woods on 10-02-2023 Lymphocytes Auto (Unsp spec) [#/Vol] 1.01 10*3/uL 0.83-4.51 [facility] Automated lymphocyte count a s percentage of total leukocytesOrdered By: La Woods on 10-02-2023 Lymphocytes/100 WBC Auto (Unsp spec) 16.0 % 19-41 [facility] Basophil percentageOrdered B y: La Woods on 10-02-2023 Basophils/100 WBC (Bld) 1.4 % 0-1 [facility] Bilirubin [Mass/Vol] 1.10 mg/dL 0.20-1.00 [facility] Comment on above: For patients on eltr ombopag therapy, use of Dimension [place] TBIL is not recommended. Chloride [Moles/Vol] 99 mmol/L 98-107 [facility] Cholesterol [Mass/Vol] 108 mg/dL <200 [facility] Comment on above: <200 mg/dL Desirable 200-240 mg/dL Borderline >240 mg/dL High Risk Eosinophils/100 WBC (Bld) 1.1 % 0-5 [facility] Glucose [Mass/Vol] 108 mg/dL 74-106 [facility] Comment on above: Fasting Glucose resu lt from 100 to 125 mg/dL suggests IMPAIRED HOMEOSTASIS per A.D.A. criteria. Hemoglobin (Bld) [Mass/Vol] 13.8 g/dL 13.0-16.5 [facility] Monocytes/100 WBC (Bld) 9.0 % 0-10 [facility] Neutrophils (Bld) [#/Vol] 4.6 10*3/uL 2.0-7.7 [facility] Neutrophils/100 WBC (Bld) 72.2 % 47-70 [facility] Potassium [Moles/Vol] 4.4 mmol/L 3.5-5.1 [facility] Protein [Mass/Vol] 7.8 g/dL 6.4-8.2 [facility] Sodium [Moles/Vol] 131 mmol/L 136-145 [facility] Triglyceride [Mass/Vol] 61 mg/dL <199 [facility] Comment on above: The drugs N-Acetylcy steine and Metamizole may falsely depress this assay.Serum Triglycerides Reference Interval Normal <150 mg/dL Borderline high 150 - 199 mg/dL High 200 - 499 mg/dL Very High > or = 500 mg/dL WBC (Bld) [#/Vol] 6.3 10*3/uL 4.4-11.0 [facility] Determination of erythrocyte mean corpuscular volume (MCV)Ordered By: La Woods on 10-02-2023 MCV (RBC) [Entitic vol] 90.5 fL 80-94 [facility] Erythrocyte distribution wid th ratioOrdered By: La Woods on 10-02-2023 Erythrocyte distribution width (RBC) [Ratio] 12.3 % 11.6-14.6 [facility] Erythrocyte distribution wid th standard deviationOrdered By: La Woods on 10-02-2023 Erythrocyte distribution width (RBC) [Entitic vol] 40.5 fL 35.1-43.9 [facility] Hematocrit Auto (Bld) [Volum e fraction]Ordered By: La Woods on 10-02-2023 Hematocrit (Bld) [Volume fraction] 39.8 % 40-54 [facility] Immature granulocytes/100 WB C Auto (Bld)Ordered By: La Woods on 10-02-2023 Immature granulocytes/100 WBC (Bld) 0.300 % 0.0-0.9 [facility] Comment on above: IG% - Immature Granu locytes (promyelocytes, myelocytes and metamyelocytes) > 1% indicates that a LEFT SHIFT is Present. Laboratory - Chemistry and C hemistry - challengeOrdered By: La Woods on 10-02-2023 Albumin/Globulin [Mass ratio] 1.0 {ratio} 0.9-2.4 [facility] ALP [Catalytic activity/Vol] 135 U/L 45-117 [facility] ALT [Catalytic activity/Vol] 23 U/L 16-61 [facility] Cholesterol in HDL [Mass/Vol] 53 mg/dL >40 [facility] Comment on above: The drugs N-Acetylcy steine and Metamizole may falsely depress this assay. Reference Range HDL <40 mg/dL Low HDL Cholesterol HDL >or= 60 mg/dL High HDL Cholesterol Cholesterol in LDL [Mass/Vol] 43 mg/dL 0-130 [facility] CO2 [Moles/Vol] 23.0 mmol/L 21.0-32.0 [facility] Globulin (S) [Mass/Vol] 4.0 g/dL 2.2-4.2 [facility] Magnesium [Mass/Vol] 2.2 mg/dL 1.6-2.6 [facility] Urea nitrogen/Creatinine [Mass ratio] 22.3 mg/mg 10-20 [facility] Laboratory - Hematology and Cell countsOrdered By: La Woods on 10-02-2023 MCH (RBC) [Entitic mass] 31.4 pg 27.0-32.0 [facility] MCHC (RBC) [Mass/Vol] 34.7 g/dL 32-36 [facility] Nucleated RBC/100 WBC (Bld) [Ratio] 0 % 0-5 [facility] Platelet mean volume (Bld) [Entitic vol] 10.5 fL 6.2-12.0 [facility] Platelets (Bld) [#/Vol] 262 10*3/uL 150-450 [facility] No Panel InformationOrdered By: La Woods on 10-02-2023 Estimated GFR (MDRD) Amer 73 mL/min >60 [facility] Comment on above: GFR Calc Estimated GFR (MDRD) Non-Af Amer 60 mL/min >60 [facility] Comment on above: Non- GFR Calc Prostate Specific Antigen Screen 0.24 ng/mL 0.00-4.00 [facility] Comment on above: This test was perfor med using the TPSA assay method for theDiDigital Lumens chemistry system. Values obtained with differentassay methods cannot be used interchangably.When changing PSA assays in the course of monitoring apatient, additional sequential testing should be carriedout to confirm baseline values. Vitamin D 25-Hydroxy 50.4 ng/mL [facility] Comment on above: Vitamin D 25(OH) Sta tus Range Deficiency <20 ng/mL (50nmol/L) Insufficiency 20 - 30 ng/mL (50 - 75 nmol/L) Sufficiency 30 - 100 ng/mL (75 - 250 nmol/L) Toxicity >100 ng/mL (>250 nmol/L) VLDL Cholesterol 12 mg/dL 5-40 [facility] RBC Auto (Bld) [#/Vol]Ordere d By: La Woods on 10-02-2023 RBC (Bld) [#/Vol] 4.40 10*6/uL 4.6-6.2 [facility] Serum or plasma calcium todd urement (mass/volume)Ordered By: La Woods on 10-02-2023 Calcium [Mass/Vol] 9.5 mg/dL 8.5-10.1 [facility] Serum or plasma creatinine m easurement (mass/volume)Ordered By: La Woods on 10-02-2023 Creatinine [Mass/Vol] 1.21 mg/dL 0.70-1.30 [facility] Comment on above: The validity of the calculated GFR & GFRAA in patients over 70 years has not been determined. Clinical correlation is essential. Serum or plasma thyroid stim ulating hormone (TSH) measurement (units/volume)Ordered By: La Woods on 10-02-2023 TSH Qn 2.14 uIU/mL 0.358-3.74 [facility] Serum or plasma urea nitroge n measurement (mass/volume)Ordered By: La Woods on 10-02-2023 Urea nitrogen [Mass/Vol] 27 mg/dL 7-18 [facility] Thin prep Papanicolaou smear with manual screeningOrdered By: La Woods on 10-02-2023 Thin prep Papanicolaou smear with manual screening 3.8 g/dL 3.2-5.0 [facility] Thin prep Papanicolaou smear with manual screening 26 U/L 15-37 [facility] Thin prep Papanicolaou smear with manual screening 9 5-15 [facility] Absolute lymphocyte countOrd ered By: Lucero Acevedo on 09-24-2023 Lymphocytes Auto (Unsp spec) [#/Vol] 1.01 10*3/uL 0.83-4.51 [facility] Automated lymphocyte count a s percentage of total leukocytesOrdered By: Lucero Acevedo on 09-24-2023 Lymphocytes/100 WBC Auto (Unsp spec) 14.4 % 19-41 [facility] Basophil percentageOrdered B y: Lucero Acevedo on 09-24-2023 Basophil percentage 2.7 mg/dL 2.5-4.9 [facility] Basophils/100 WBC (Bld) 1.6 % 0-1 [facility] Bilirubin [Mass/Vol] 1.20 mg/dL 0.20-1.00 [facility] Comment on above: For patients on eltr ombopag therapy, use of Dimension [place] TBIL is not recommended. Chloride [Moles/Vol] 97 mmol/L 98-107 [facility] Eosinophils/100 WBC (Bld) 1.9 % 0-5 [facility] Glucose [Mass/Vol] 113 mg/dL 74-106 [facility] Comment on above: Fasting Glucose resu lt from 100 to 125 mg/dL suggests IMPAIRED HOMEOSTASIS per A.D.A. criteria. Hemoglobin (Bld) [Mass/Vol] 12.5 g/dL 13.0-16.5 [facility] Monocytes/100 WBC (Bld) 10.0 % 0-10 [facility] Neutrophils (Bld) [#/Vol] 5.0 10*3/uL 2.0-7.7 [facility] Neutrophils/100 WBC (Bld) 71.7 % 47-70 [facility] Potassium [Moles/Vol] 4.0 mmol/L 3.5-5.1 [facility] Protein [Mass/Vol] 7.0 g/dL 6.4-8.2 [facility] Sodium [Moles/Vol] 129 mmol/L 136-145 [facility] WBC (Bld) [#/Vol] 7.0 10*3/uL 4.4-11.0 [facility] Determination of erythrocyte mean corpuscular volume (MCV)Ordered By: Lucero Acevedo on 09-24-2023 MCV (RBC) [Entitic vol] 86.1 fL 80-94 [facility] Erythrocyte distribution wid th ratioOrdered By: Lucero Acevedo on 09-24-2023 Erythrocyte distribution width (RBC) [Ratio] 12.1 % 11.6-14.6 [facility] Erythrocyte distribution wid th standard deviationOrdered By: Lucero Acevedo on 09-24-2023 Erythrocyte distribution width (RBC) [Entitic vol] 38.5 fL 35.1-43.9 [facility] Hematocrit Auto (Bld) [Volum e fraction]Ordered By: Lucero Acevedo on 09-24-2023 Hematocrit (Bld) [Volume fraction] 35.3 % 40-54 [facility] Immature granulocytes/100 WB C Auto (Bld)Ordered By: Lucero Acevedo on 09-24-2023 Immature granulocytes/100 WBC (Bld) 0.400 % 0.0-0.9 [facility] Comment on above: IG% - Immature Granu locytes (promyelocytes, myelocytes and metamyelocytes) > 1% indicates that a LEFT SHIFT is Present. Laboratory - Chemistry and C hemistry - challengeOrdered By: Lucero Acevedo on 09-24-2023 Albumin/Globulin [Mass ratio] 0.9 {ratio} 0.9-2.4 [facility] ALP [Catalytic activity/Vol] 131 U/L 45-117 [facility] ALT [Catalytic activity/Vol] 20 U/L 16-61 [facility] CO2 [Moles/Vol] 21.0 mmol/L 21.0-32.0 [facility] Globulin (S) [Mass/Vol] 3.6 g/dL 2.2-4.2 [facility] Magnesium [Mass/Vol] 1.9 mg/dL 1.6-2.6 [facility] Urea nitrogen/Creatinine [Mass ratio] 13.3 mg/mg 10-20 [facility] Laboratory - Hematology and Cell countsOrdered By: Lucero Acevedo on 09-24-2023 MCH (RBC) [Entitic mass] 30.5 pg 27.0-32.0 [facility] MCHC (RBC) [Mass/Vol] 35.4 g/dL 32-36 [facility] Nucleated RBC/100 WBC (Bld) [Ratio] 0 % 0-5 [facility] Platelet mean volume (Bld) [Entitic vol] 9.8 fL 6.2-12.0 [facility] Platelets (Bld) [#/Vol] 203 10*3/uL 150-450 [facility] No Panel InformationOrdered By: Lucero Acevedo on 09-24-2023 Estimated Creatinine Clearance Calc 71.82 ml/min [facility] Estimated GFR (MDRD) Amer 93 mL/min >60 [facility] Comment on above: GFR Calc Estimated GFR (MDRD) Non-Af Amer 77 mL/min >60 [facility] Comment on above: Non- GFR Calc Troponin I High Sensitivity 53 pg/mL 3.0-78.0 [facility] Comment on above: Please Note: [place] t Units and Gender Specific Reference Ranges. For more information see Policy Stat Procedure [place] High Sensitivity Troponin (TNIH) and attachments. RBC Auto (Bld) [#/Vol]Ordere d By: Lucero Acevedo on 09-24-2023 RBC (Bld) [#/Vol] 4.10 10*6/uL 4.6-6.2 [facility] Serum or plasma calcium todd urement (mass/volume)Ordered By: Lucero Acevedo on 09-24-2023 Calcium [Mass/Vol] 8.8 mg/dL 8.5-10.1 [facility] Serum or plasma creatinine m easurement (mass/volume)Ordered By: Lucero Acevedo on 09-24-2023 Creatinine [Mass/Vol] 0.98 mg/dL 0.70-1.30 [facility] Comment on above: The validity of the calculated GFR & GFRAA in patients over 70 years has not been determined. Clinical correlation is essential. Serum or plasma thyroid stim ulating hormone (TSH) measurement (units/volume)Ordered By: Lucero Acevedo on 09-24-2023 TSH Qn 1.77 uIU/mL 0.358-3.74 [facility] Serum or plasma urea nitroge n measurement (mass/volume)Ordered By: Lucero Acevedo on 09-24-2023 Urea nitrogen [Mass/Vol] 13 mg/dL 7-18 [facility] Thin prep Papanicolaou smear with manual screeningOrdered By: Lucero Acevedo on 09-24-2023 Thin prep Papanicolaou smear with manual screening 3.4 g/dL 3.2-5.0 [facility] Thin prep Papanicolaou smear with manual screening 23 U/L 15-37 [facility] Thin prep Papanicolaou smear with manual screening 11 5-15 [facility] Basophil percentageOrdered B y: Consuelo Mcclain on 09-23-2023 Basophil percentage 0 SEEN /hpf 0-5 [facility] Bilirubin Test strip Ql (U)O rdered By: Consuelo Mcclain on 09-23-2023 Bilirubin Ql (U) Negative Negative [facility] Direct bilirubinOrdered By: Consuelo Mcclain on 09-23-2023 Bilirubin.direct [Mass/Vol] 0.41 mg/dL 0.00-0.30 [facility] Ketones Test strip Ql (U)Ord ered By: Consuelo Mcclain on 09-23-2023 Ketones Ql (U) Negative Negative [facility] Laboratory - Chemistry and C hemistry - challengeOrdered By: Consuelo Mcclain on 09-23-2023 Natriuretic peptide B (Bld) [Mass/Vol] 162.6 pg/mL 0-100 [facility] Laboratory - Microbiology an d Antimicrobial susceptibilityOrdered By: Consuelo Mcclain on 09-23-2023 SARS-CoV-2 (COVID-19) RNA JIL+probe Ql (Unsp spec) [facility] SARS-CoV-2 (COVID-19) RNA JIL+probe Ql (Unsp spec) [facility] Mucus LM Ql (Urine sed)Order ed By: Consuelo Mcclain on 09-23-2023 Mucus Ql (Urine sed) 0 SEEN /hpf [facility] Nitrite Test strip Ql (U)Ord ered By: Consuelo Mcclain on 09-23-2023 Nitrite Ql (U) Negative Negative [facility] No Panel InformationOrdered By: Consuelo Mcclain on 09-23-2023 Urine RBC 0 SEEN /hpf 0-5 [facility] Protein Test strip Ql (U)Ord ered By: Consuelo Mcclain on 09-23-2023 Protein Ql (U) Negative Negative [facility] Squamous epithelial cells de tection in urine sediment by light microscopyOrdered By: Consuelo Mcclain on 09-23-2023 Epithelial cells.squamous LM Ql (Urine sed) 0 SEEN /hpf 0-5 [facility] Urine blood detectionOrdered By: Consuelo Mcclain on 09-23-2023 RBC Ql (U) Negative Negative [facility] Urine clarityOrdered By: Alberta Mcclain on 09-23-2023 Clarity (U) Clear Clear [facility] Urine color determinationOrd ered By: Consuelo Mcclain on 09-23-2023 Color (U) Straw Yellow [facility] Urine glucose detectionOrder ed By: Consuelo Mcclain on 09-23-2023 Glucose Ql (U) Normal mg/dl Normal [facility] Urine leukocyte esterase det ection by dipstickOrdered By: Consuelo Mcclain on 09-23-2023 Leukocyte esterase Test strip Ql (U) Negative Negative [facility] Urine pHOrdered By: Consuelo Mcclain on 09-23-2023 pH (U) 6.0 [pH] 5.0 - 8.0 [facility] Urine sediment bacteria coun t by microscopy (number/high power field)Ordered By: Consuelo Mcclain on 09-23-2023 Bacteria LM.HPF (Urine sed) [#/Area] 0 /[HPF] None Seen [facility] Urine specific gravity measu rementOrdered By: Consuelo Mcclain on 09-23-2023 Specific gravity (U) [Rel density] 1.010 1.002-1.030 [facility] Urine urobilinogen measureme ntOrdered By: Consuelo Mcclain on 09-23-2023 Urobilinogen Ql (U) Normal mg/dl Normal [facility] Absolute lymphocyte countOrd ered By: Robby Peralta on 04-29-2023 Lymphocytes Auto (Unsp spec) [#/Vol] 1.17 10*3/uL 0.83-4.51 [facility] Basophil percentageOrdered B y: Robby Peralta on 04-29-2023 Basophils/100 WBC (Bld) 1.7 % 0-1 [facility] Chloride [Moles/Vol] 102 mmol/L 98-107 [facility] Eosinophils/100 WBC (Bld) 2.1 % 0-5 [facility] Glucose [Mass/Vol] 96 mg/dL 74-106 [facility] Neutrophils (Bld) [#/Vol] 5.0 10*3/uL 2.0-7.7 [facility] Neutrophils/100 WBC (Bld) 70.0 % 47-70 [facility] Potassium [Moles/Vol] 4.3 mmol/L 3.5-5.1 [facility] Sodium [Moles/Vol] 133 mmol/L 136-145 [facility] WBC (Bld) [#/Vol] 7.2 10*3/uL 4.4-11.0 [facility] Blood erythrocytes count (nu mber/volume)Ordered By: Robby Peralta on 04-29-2023 RBC (Bld) [#/Vol] 4.04 10*6/uL 4.6-6.2 [facility] Blood hemoglobin measurement (mass/volume)Ordered By: Robby Peralta on 04-29-2023 Hemoglobin (Bld) [Mass/Vol] 12.6 g/dL 13.0-16.5 [facility] Blood lymphocytes/100 leukoc ytesOrdered By: Robby Peralta on 04-29-2023 Lymphocytes/100 WBC (Bld) 16.3 % 19-41 [facility] Blood monocytes/100 leukocyt esOrdered By: Robby Peralta on 04-29-2023 Monocytes/100 WBC (Bld) 9.5 % 0-10 [facility] Blood platelet mean volumeOr dered By: Robby Peralta on 04-29-2023 Platelet mean volume (Bld) [Entitic vol] 11.0 fL 6.2-12.0 [facility] Determination of erythrocyte mean corpuscular volume (MCV)Ordered By: Robby Peralta on 04-29-2023 MCV (RBC) [Entitic vol] 95.3 fL 80-94 [facility] Hematocrit Auto (Bld) [Volum e fraction]Ordered By: Robby Peralta on 04-29-2023 Hematocrit (Bld) [Volume fraction] 38.5 % 40-54 [facility] Laboratory - Chemistry and C hemistry - challengeOrdered By: Robby Peralta on 04-29-2023 CO2 [Moles/Vol] 24.0 mmol/L 21.0-32.0 [facility] Natriuretic peptide B (Bld) [Mass/Vol] 168.6 pg/mL 0-100 [facility] Urea nitrogen/Creatinine [Mass ratio] 17.6 mg/mg 10-20 [facility] Laboratory - Hematology and Cell countsOrdered By: Robby Peralta on 04-29-2023 Erythrocyte distribution width (RBC) [Entitic vol] 44.8 fL 35.1-43.9 [facility] Erythrocyte distribution width (RBC) [Ratio] 12.7 % 11.6-14.6 [facility] Immature granulocytes/100 WBC (Bld) 0.400 % 0.0-0.9 [facility] Comment on above: IG% - Immature Granu locytes (promyelocytes, myelocytes and metamyelocytes) > 1% indicates that a LEFT SHIFT is Present. MCH (RBC) [Entitic mass] 31.2 pg 27.0-32.0 [facility] Nucleated RBC/100 WBC (Bld) [Ratio] 0 % 0-5 [facility] MCHC Auto (RBC) [Mass/Vol]Or dered By: Robby Peralta on 04-29-2023 MCHC (RBC) [Mass/Vol] 32.7 g/dL 32-36 [facility] No Panel InformationOrdered By: Robby Peralta on 04-29-2023 Estimated GFR (MDRD) Amer 83 mL/min >60 [facility] Comment on above: GFR Calc Estimated GFR (MDRD) Non-Af Amer 69 mL/min >60 [facility] Comment on above: Non- GFR Calc Platelets bldOrdered By: Fabián Peralta on 04-29-2023 Platelets (Bld) [#/Vol] 212 10*3/uL 150-450 [facility] Serum or plasma calcium todd urement (mass/volume)Ordered By: Robby Peralta on 04-29-2023 Calcium [Mass/Vol] 9.2 mg/dL 8.5-10.1 [facility] Serum or plasma creatinine m easurement (mass/volume)Ordered By: Robby Peralta on 04-29-2023 Creatinine [Mass/Vol] 1.08 mg/dL 0.70-1.30 [facility] Comment on above: The validity of the calculated GFR & GFRAA in patients over 70 years has not been determined. Clinical correlation is essential. Serum or plasma urea nitroge n measurement (mass/volume)Ordered By: Robby Peralta on 04-29-2023 Urea nitrogen [Mass/Vol] 19 mg/dL 7-18 [facility] Thin prep Papanicolaou smear with manual screeningOrdered By: Robby Peralta on 04-29-2023 Thin prep Papanicolaou smear with manual screening 7 5-15 [facility] Absolute lymphocyte counton 06-06-2022 Lymphocytes Auto (Unsp spec) [#/Vol] 1.33 10*3/uL 0.83-4.51 [facility] Work Phone: Basophil percentageon 2021 Basophils/100 WBC (Bld) 1.4 % 0-1 [facility] Work Phone: Bilirubin [Mass/Vol] 0.90 mg/dL 0.20-1.00 [facility] Work Phone: Comment on above: For patients on eltr ombopag therapy, use of Dimension [place] TBIL is not recommended. Chloride [Moles/Vol] 105 mmol/L 98-107 [facility] Work Phone: Cholesterol [Mass/Vol] 111 mg/dL <200 [facility] Work Phone: Comment on above: <200 mg/dL Desirable 200-240 mg/dL Borderline >240 mg/dL High Risk Eosinophils/100 WBC (Bld) 3.0 % 0-5 [facility] Work Phone: Glucose [Mass/Vol] 103 mg/dL 74-106 [facility] Work Phone: Comment on above: Fasting Glucose resu lt from 100 to 125 mg/dL suggests IMPAIRED HOMEOSTASIS per A.D.A. criteria. Neutrophils (Bld) [#/Vol] 2.9 10*3/uL 2.0-7.7 [facility] Work Phone: Neutrophils/100 WBC (Bld) 57.7 % 47-70 [facility] Work Phone: [phone] Potassium [Moles/Vol] 4.2 mmol/L 3.5-5.1 [facility] Work Phone: [phone] Protein [Mass/Vol] 7.5 g/dL 6.4-8.2 [facility] Work Phone: Sodium [Moles/Vol] 138 mmol/L 136-145 [facility] Work Phone: Triglyceride [Mass/Vol] 63 mg/dL <199 [facility] Work Phone: Comment on above: The drugs N-Acetylcy steine and Metamizole may falsely depress this assay.Serum Triglycerides Reference Interval Normal <150 mg/dL Borderline high 150 - 199 mg/dL High 200 - 499 mg/dL Very High > or = 500 mg/dL WBC (Bld) [#/Vol] 5.0 10*3/uL 4.4-11.0 [facility] Work Phone: Blood erythrocytes count (nu mber/volume)on 06-06-2022 RBC (Bld) [#/Vol] 3.99 10*6/uL 4.6-6.2 [facility] Work Phone: Blood hemoglobin measurement (mass/volume)on 06-06-2022 Hemoglobin (Bld) [Mass/Vol] 12.5 g/dL 13.0-16.5 [facility] Work Phone: Blood lymphocytes/100 leukoc yteson 06-06-2022 Lymphocytes/100 WBC (Bld) 26.4 % 19-41 [facility] Work Phone: Blood monocytes/100 leukocyt eson 06-06-2022 Monocytes/100 WBC (Bld) 11.1 % 0-10 [facility] Work Phone: [phone] Blood platelet mean volumeon 06-06-2022 Platelet mean volume (Bld) [Entitic vol] 11.1 fL 6.2-12.0 [facility] Work Phone: Determination of erythrocyte mean corpuscular volume (MCV)on 06-06-2022 MCV (RBC) [Entitic vol] 94.5 fL 80-94 [facility] Work Phone: [phone] Hematocrit Auto (Bld) [Volum e fraction]on 06-06-2022 Hematocrit (Bld) [Volume fraction] 37.7 % 40-54 [facility] Work Phone: Laboratory - Chemistry and C hemistry - challengeon 06-06-2022 ALP [Catalytic activity/Vol] 107 U/L 45-117 [facility] Work Phone: [phone] ALT [Catalytic activity/Vol] 22 U/L 16-61 [facility] Work Phone: [phone] CO2 [Moles/Vol] 25.0 mmol/L 21.0-32.0 [facility] Work Phone: [phone] Globulin (S) [Mass/Vol] 3.8 g/dL 2.2-4.2 [facility] Work Phone: [phone] Urea nitrogen/Creatinine [Mass ratio] 16.5 mg/mg 10-20 [facility] Work Phone: [phone] Laboratory - Hematology and Cell countson 06-06-2022 Erythrocyte distribution width (RBC) [Entitic vol] 44.1 fL 35.1-43.9 [facility] Work Phone: [phone] Erythrocyte distribution width (RBC) [Ratio] 12.9 % 11.6-14.6 [facility] Work Phone: [phone] Immature granulocytes/100 WBC (Bld) 0.400 % 0.0-0.9 [facility] Work Phone: [phone] Comment on above: IG% - Immature Granu locytes (promyelocytes, myelocytes and metamyelocytes) > 1% indicates that a LEFT SHIFT is Present. MCH (RBC) [Entitic mass] 31.3 pg 27.0-32.0 [facility] Work Phone: [phone] Nucleated RBC/100 WBC (Bld) [Ratio] 0 % 0-5 [facility] Work Phone: [phone] MCHC Auto (RBC) [Mass/Vol]on 06-06-2022 MCHC (RBC) [Mass/Vol] 33.2 g/dL 32-36 [facility] Work Phone: [phone] No Panel Informationon 06-06 Estimated GFR (MDRD) Amer 78 mL/min >60 [facility] Work Phone: [phone] Comment on above: GFR Calc Estimated GFR (MDRD) Non-Af Amer 64 mL/min >60 [facility] Work Phone: Comment on above: Non- GFR Calc Thyroid Stimulating Hormone (TSH) 3.57 uIU/mL 0.358-3.74 [facility] Work Phone: Vitamin D 25-Hydroxy 55.5 ng/mL [facility] Work Phone: Comment on above: Vitamin D 25(OH) Sta tus Range Deficiency <20 ng/mL (50nmol/L) Insufficiency 20 - 30 ng/mL (50 - 75 nmol/L) Sufficiency 30 - 100 ng/mL (75 - 250 nmol/L) Toxicity >100 ng/mL (>250 nmol/L) Platelets bldon 06-06-2022 Platelets (Bld) [#/Vol] 162 10*3/uL 150-450 [facility] Work Phone: Serum or plasma albumin todd urement (mass/volume)on 06-06-2022 Albumin [Mass/Vol] 3.7 g/dL 3.2-5.0 [facility] Work Phone: Serum or plasma albumin/glob ulin mass ratioon 06-06-2022 Albumin/Globulin [Mass ratio] 1.0 {ratio} 0.9-2.4 [facility] Work Phone: Serum or plasma calcium todd urement (mass/volume)on 06-06-2022 Calcium [Mass/Vol] 9.3 mg/dL 8.5-10.1 [facility] Work Phone: [phone] Serum or plasma cholesterol in HDL measurement (mass/volume)on 06-06-2022 Cholesterol in HDL [Mass/Vol] 56 mg/dL >40 [facility] Work Phone: Comment on above: The drugs N-Acetylcy steine and Metamizole may falsely depress this assay. Reference Range HDL <40 mg/dL Low HDL Cholesterol HDL >or= 60 mg/dL High HDL Cholesterol Serum or plasma cholesterol in VLDL measurement (mass/volume)on 06-06-2022 Cholesterol in VLDL [Mass/Vol] 13 mg/dL 5-40 [facility] Work Phone: Serum or plasma creatinine m easurement (mass/volume)on 06-06-2022 Creatinine [Mass/Vol] 1.15 mg/dL 0.70-1.30 [facility] Work Phone: Comment on above: The validity of the calculated GFR & GFRAA in patients over 70 years has not been determined. Clinical correlation is essential. Serum or plasma low density lipoprotein (LDL) cholesterol measurement (mass/volume)on 06-06-2022 Cholesterol in LDL [Mass/Vol] 42 mg/dL 0-130 [facility] Work Phone: Serum or plasma urea nitroge n measurement (mass/volume)on 06-06-2022 Urea nitrogen [Mass/Vol] 19 mg/dL 7-18 [facility] Work Phone: Thin prep Papanicolaou smear with manual screeningon 06-06-2022 Thin prep Papanicolaou smear with manual screening 23 U/L 15-37 [facility] Work Phone: Thin prep Papanicolaou smear with manual screening 8 5-15 [facility] Work Phone: Basophil percentageon 2021 Basophil percentage 25-50 SEEN /hpf 0-5 [facility] Work Phone: Bilirubin Test strip Ql (U)o n 01-27-2022 Bilirubin Ql (U) Negative Negative [facility] Work Phone: Ketones Test strip Ql (U)on 01-27-2022 Ketones Ql (U) Negative Negative [facility] Work Phone: Laboratory - Chemistry and C hemistry - challengeon 01-27-2022 Bilirubin Ql (U) Negative [facility] Work Phone: Glucose Ql (U) Negative [facility] Work Phone: [phone] Ketones Ql (U) Negative [facility] Work Phone: pH (U) 6.0 [pH] [facility] Work Phone: [phone] Specific gravity (U) [Rel density] 1.015 [facility] Work Phone: Urobilinogen (U) [Mass/Vol] 0.0906769 mg/dL [facility] Work Phone: Laboratory - Hematology and Cell countson 01-27-2022 Hemoglobin Ql (U) Hemolyzed [facility] Work Phone: Laboratory - Specimen inform ationon 01-27-2022 Clarity (U) Cloudy [facility] Work Phone: Color (U) YELLOW [facility] Work Phone: Laboratory - Urinalysison Nitrite Ql (U) Positive [facility] Work Phone: Protein Ql (U) Negative [facility] Work Phone: Mucus LM Ql (Urine sed)on Mucus Ql (Urine sed) 0 SEEN /hpf [facility] Work Phone: Nitrite Test strip Ql (U)on 01-27-2022 Nitrite Ql (U) Negative Negative [facility] Work Phone: No Panel Informationon 01-27 Urine Leukocytes Positive [facility] Work Phone: Urine Non-Hemolyzed Blood Small [facility] Work Phone: Protein Test strip Ql (U)on 01-27-2022 Protein Ql (U) Negative Negative [facility] Work Phone: Squamous epithelial cells de tection in urine sediment by light microscopyon 01-27-2022 Epithelial cells.squamous LM Ql (Urine sed) 0 SEEN /hpf 0-5 [facility] Work Phone: Urine blood detectionon 01-18 RBC Ql (U) 25 /ul Negative [facility] Work Phone: RBC Ql (U) 0 SEEN /hpf 0-5 [facility] Work Phone: Urine clarityon 01-27-2022 Clarity (U) Sl. Cloudy Clear [facility] Work Phone: Urine color determinationon 01-27-2022 Color (U) Straw Yellow [facility] Work Phone: Urine glucose detectionon Glucose Ql (U) Normal mg/dl Normal [facility] Work Phone: Urine leukocyte esterase det ection by dipstickon 01-27-2022 Leukocyte esterase Test strip Ql (U) 500 /ul Negative [facility] Work Phone: Urine pHon 01-27-2022 pH (U) 6.0 [pH] 5.0 - 8.0 [facility] Work Phone: Urine sediment bacteria coun t by microscopy (number/high power field)on 01-27-2022 Bacteria LM.HPF (Urine sed) [#/Area] 0 /[HPF] None Seen [facility] Work Phone: Urine specific gravity measu rementon 01-27-2022 Specific gravity (U) [Rel density] 1.010 1.002-1.030 [facility] Work Phone: Urobilinogen Auto test strip Ql (U)on 01-27-2022 Urobilinogen Ql (U) Normal mg/dl Normal [facility] Work Phone: Basophil percentageon 2021 Chloride [Moles/Vol] 103 mmol/L 98-107 [facility] Work Phone: Glucose [Mass/Vol] 97 mg/dL 74-106 [facility] Work Phone: Potassium [Moles/Vol] 4.4 mmol/L 3.5-5.1 [facility] Work Phone: Sodium [Moles/Vol] 133 mmol/L 136-145 [facility] Work Phone: Laboratory - Chemistry and C hemistry - challengeon 10-17-2021 CO2 [Moles/Vol] 24.0 mmol/L 21.0-32.0 [facility] Work Phone: Urea nitrogen/Creatinine [Mass ratio] 21.8 mg/mg 10-20 [facility] Work Phone: No Panel Informationon 10-17 Estimated GFR (MDRD) Amer 90 mL/min >60 [facility] Work Phone: Comment on above: GFR Calc Estimated GFR (MDRD) Non-Af Amer 75 mL/min >60 [facility] Work Phone: Comment on above: Non- GFR Calc Serum or plasma calcium todd urement (mass/volume)on 10-17-2021 Calcium [Mass/Vol] 9.1 mg/dL 8.5-10.1 [facility] Work Phone: Serum or plasma creatinine m easurement (mass/volume)on 10-17-2021 Creatinine [Mass/Vol] 1.01 mg/dL 0.70-1.30 [facility] Work Phone: Comment on above: The validity of the calculated GFR & GFRAA in patients over 70 years has not been determined. Clinical correlation is essential. Serum or plasma urea nitroge n measurement (mass/volume)on 10-17-2021 Urea nitrogen [Mass/Vol] 22 mg/dL 7-18 [facility] Work Phone: Thin prep Papanicolaou smear with manual screeningon 10-17-2021 Thin prep Papanicolaou smear with manual screening 6 5-15 [facility] Work Phone: Absolute lymphocyte counton 10-02-2021 Lymphocytes Auto (Unsp spec) [#/Vol] 1.01 10*3/uL 0.83-4.51 [facility] Work Phone: Basophil percentageon 2021 Basophils/100 WBC (Bld) 1.0 % 0-1 [facility] Work Phone: Chloride [Moles/Vol] 95 mmol/L 98-107 [facility] Work Phone: Eosinophils/100 WBC (Bld) 1.2 % 0-5 [facility] Work Phone: Glucose [Mass/Vol] 89 mg/dL 74-106 [facility] Work Phone: Neutrophils (Bld) [#/Vol] 4.9 10*3/uL 2.0-7.7 [facility] Work Phone: Neutrophils/100 WBC (Bld) 73.1 % 47-70 [facility] Work Phone: Potassium [Moles/Vol] 4.0 mmol/L 3.5-5.1 [facility] Work Phone: Sodium [Moles/Vol] 125 mmol/L 136-145 [facility] Work Phone: WBC (Bld) [#/Vol] 6.7 10*3/uL 4.4-11.0 [facility] Work Phone: Blood erythrocytes count (nu mber/volume)on 10-02-2021 RBC (Bld) [#/Vol] 3.94 10*6/uL 4.6-6.2 [facility] Work Phone: Blood hemoglobin measurement (mass/volume)on 10-02-2021 Hemoglobin (Bld) [Mass/Vol] 12.3 g/dL 13.0-16.5 [facility] Work Phone: Blood lymphocytes/100 leukoc yteson 10-02-2021 Lymphocytes/100 WBC (Bld) 15.1 % 19-41 [facility] Work Phone: [phone] Blood monocytes/100 leukocyt eson 10-02-2021 Monocytes/100 WBC (Bld) 9.3 % 0-10 [facility] Work Phone: Blood platelet mean volumeon 10-02-2021 Platelet mean volume (Bld) [Entitic vol] 9.8 fL 6.2-12.0 [facility] Work Phone: Determination of erythrocyte mean corpuscular volume (MCV)on 10-02-2021 MCV (RBC) [Entitic vol] 88.8 fL 80-94 [facility] Work Phone: [phone] Hematocrit Auto (Bld) [Volum e fraction]on 10-02-2021 Hematocrit (Bld) [Volume fraction] 35.0 % 40-54 [facility] Work Phone: [phone] Laboratory - Chemistry and C hemistry - challengeon 10-02-2021 CO2 [Moles/Vol] 24.0 mmol/L 21.0-32.0 [facility] Work Phone: [phone] Free T4 [Mass/Vol] 1.29 ng/dL 0.76-1.46 [facility] Work Phone: [phone] Magnesium [Mass/Vol] 1.9 mg/dL 1.6-2.[address] [facility] Work Phone: [phone] Natriuretic peptide B (Bld) [Mass/Vol] 153.5 pg/mL 0-100 [facility] Work Phone: [phone] Urea nitrogen/Creatinine [Mass ratio] 15.9 mg/mg 10-20 [facility] Work Phone: [phone] Laboratory - Hematology and Cell countson 10-02-2021 Erythrocyte distribution width (RBC) [Entitic vol] 37.8 fL 35.1-43.9 [facility] Work Phone: [phone] Erythrocyte distribution width (RBC) [Ratio] 11.8 % 11.6-14.6 [facility] Work Phone: [phone] Immature granulocytes/100 WBC (Bld) 0.300 % 0.0-0.9 [facility] Work Phone: [phone] Comment on above: IG% - Immature Granu locytes (promyelocytes, myelocytes and metamyelocytes) > 1% indicates that a LEFT SHIFT is Present. MCH (RBC) [Entitic mass] 31.2 pg 27.0-32.0 [facility] Work Phone: [phone] Nucleated RBC/100 WBC (Bld) [Ratio] 0 % 0-5 [facility] Work Phone: [phone] MCHC Auto (RBC) [Mass/Vol]on 10-02-2021 MCHC (RBC) [Mass/Vol] 35.1 g/dL 32-36 [facility] Work Phone: No Panel Informationon 10-02 Estimated GFR (MDRD) Amer 85 mL/min >60 [facility] Work Phone: Comment on above: GFR Calc Estimated GFR (MDRD) Non-Af Amer 70 mL/min >60 [facility] Work Phone: Comment on above: Non- GFR Calc Thyroid Stimulating Hormone (TSH) 2.41 uIU/mL 0.358-3.74 [facility] Work Phone: Platelets bldon 10-02-2021 Platelets (Bld) [#/Vol] 210 10*3/uL 150-450 [facility] Work Phone: Serum or plasma calcium todd urement (mass/volume)on 10-02-2021 Calcium [Mass/Vol] 9.1 mg/dL 8.5-10.1 [facility] Work Phone: Serum or plasma creatinine m easurement (mass/volume)on 10-02-2021 Creatinine [Mass/Vol] 1.07 mg/dL 0.70-1.30 [facility] Work Phone: Comment on above: The validity of the calculated GFR & GFRAA in patients over 70 years has not been determined. Clinical correlation is essential. Serum or plasma urea nitroge n measurement (mass/volume)on 10-02-2021 Urea nitrogen [Mass/Vol] 17 mg/dL 7-18 [facility] Work Phone: Thin prep Papanicolaou smear with manual screeningon 10-02-2021 Thin prep Papanicolaou smear with manual screening 6 5-15 [facility] Work Phone: Office Visit (Family Medicin e)on 01-16-2021 Follow-up visit Orders Monilial intertrigo Renew: Nystatin 216655 UNIT/GM External Ointment; APPLY 2-3 TIMES DAILY [...] redness on legs History of Present Illness Brayan is a 85-year-old male here with his [...] Coronary artery stent placement drug eludtng stent [employer], Synergy stent 4.0mm x 24mm [id number] ref [id number] gtin [id number] History of Orchiectomy History of Prostate resection [...] Oral TabletTAKE 1 TABLET DAILY.HTN (hypertension) Nystatin 682763 UNIT/GM External OintmentAPPLY 2-3 TIMES DAILY TO AFFECTED AREA(S).Monilial intertrigo Eliquis 5 MG Oral TabletTake 1 tablet twice dailyOther persistent atrial fibrillation Metoprolol Succinate ER 25 MG Oral Tablet Extended Release 24 HourOther persistent atrial fibrillation Albuterol Sulfate (2.5 MG/3ML) 0.083% Inhalation Nebulization Solution0.083% - 3ML DOSING UNITS INHALATION EVERY 6 HOURS ,X30 DAY(S) NEEDShortness of breath Vitals Vital Signs Recorded: 16Jan2021 04:04PM Pjhzgijaawa72 F Heart Rate68 Occprwac986, LUE Owupmebds76, LUE Height5 ft 10 in Wucyxd645 lb 6 oz BMI Wkgphsoxbf80.65 kg/m2 BSA Calculated2.37 Tobacco Useb) No Fall Screeninga) No falls within the last year Physical Exam Constitutional: Alert and in no acute distress. Well developed, well nourished. Cardiovascular: Heart rate and rhythm were normal, normal S1 and S2, no gallops, no murmurs and no pericardial rub. (more content not included)... Normal [employer] Tobacco Screening.on 021 Fall risk assessment a) No falls within the last year [facility] Work Phone: Tobacco use status CP b) No [facility] Work Phone: Office Visiton 10-20-2020 Follow-up [...] (112.3) (B37.2) Orders Monilial intertrigo Start: Nystatin 019390 UNIT/GM External Ointment; APPLY 2-3 TIMES DAILY [...] skin is much better. Dr Garcia in [place] for heart and Dr Berry for lungs/ [...] intertrigo. Then spread from their. Butenafine from [employer] seemed to almost clear it up. Then [...] Coronary artery stent placement drug eludtng stent [employer], Synergy stent 4.0mm x 24mm [id number] ref [id number] gtin [id number] History of Orchiectomy History of Prostate resection [...] 1 TABLET Weekly Vitals Vital Signs Recorded: 20Oct2020 03:40PM Heart Rate76 Ragqnuxu655, LUE Fvxtyesqy87, LUE Height5 ft 10 in Wsqvpl714 lb BMI Ejtqnvxknf91.73 BSA Calculated2.32 Tobacco (more content not included)... Normal [employer] Office Visiton 07-20-2020 Follow-up visit Chief Complaint edema History of Present Vjkkcru32/17/20 Hypertension - No Chest pain, palpitations, numbness, weakness, claudication, or double vision/ loss of vision. Edema is much worse. Now with rash. Still comes and goes. Admitted to [facility]. Dyspnea felt to respiratory. Renal cyst, right [...] no results To see Dr Garcia at [place] for his heart CMP shows better sodium [...] Oral Tablet; TAKE 1 TABLET DAILY; Therapy: 24Jul2019 to (Evaluate:[id number]) Requested for: [id number]; Last Rx:[id number] Ordered Rx By: Chuck Paulino; Dispense: 90 Days ; #:90 Tablet; Refill: 3;For: BPH (benign prostatic hyperplasia); WILL = N; Verified Transmission to [facility]; Last Updated By: Jayla Bowling; 07/06/2020 4:02:19 PM Spironolactone 50 MG Oral Tablet (Aldactone); Take 1 tablet daily; Therapy: [id number] to (Last Rx:[id number]) Requested for: [id number] Ordered Rx By: Chuck Paulino; Dispense: 0 Days ; #:30 Tablet; Refill: 0;For: Cellulitis of lower extremity, unspecified laterality; WILL = N; Verified Transmission to [facility]; Last Updated By: System, [employer]; 07/06/2020 4:16:52 PM Furosemide 20 MG Oral Tablet; TAKE 1 TABLET TWICE DAILY; Therapy: [id number] to (Evaluate:[id number]) Requested for: [id number]; Last Rx:[id number] Ordered Rx By: Chuck Paulino; Dispense: (more content not included)... Normal [facility] PANEL 2019 Albumin [Mass/Vol] 3.8 g/dL Normal 3.4 - 5.0 [facility] Comment on above: Performed By: #### C MP ####[address] [address] ALP [Catalytic activity/Vol] 118 U/L Normal 33 - 136 [facility] Comment on above: Performed By: #### C MP ####[address] [address] ALT [Catalytic activity/Vol] 18 U/L Normal 10 - 52 [facility] Comment on above: Result Comment: Latoya ents treated with Sulfasalazine may generate falsely decreased results for ALT. Performed By: #### C MP ####[address] [address] Anion gap [Moles/Vol] 12 mmol/L Normal 10 - 20 [facility] Comment on above: Performed By: #### C MP ####[address] [address] AST [Catalytic activity/Vol] 23 U/L Normal 9 - 39 [facility] Comment on above: Performed By: #### C MP ####[address] [address] Bilirubin [Mass/Vol] 0.6 mg/dL Normal 0.0 - 1.2 [facility] Comment on above: Performed By: #### C MP ####[address] [address] Calcium [Mass/Vol] 9.0 mg/dL Normal 8.6 - 10.3 [facility] Comment on above: Performed By: #### C MP ####[address] [address] Chloride [Moles/Vol] 102 mmol/L Normal 98 - 107 [facility] Comment on above: Performed By: #### C MP ####[address] [address] Creatinine [Mass/Vol] 0.82 mg/dL Normal 0.50 - 1.30 [facility] Comment on above: Performed By: #### C MP ####[address] [address] GFR- AM. >60 Normal >60 [facility] Comment on above: Result Comment: CALC ULATIONS OF ESTIMATED GFR ARE PERFORMED USING THE MDRD STUDY EQUATION FOR THE IDMS-TRACEABLE CREATININE METHODS. CLIN CHEM 2007;53:766-72 Performed By: #### C MP ####[address] [address] GFR-NON AM. >60 Normal >60 [facility] Comment on above: Performed By: #### C MP ####[address] [address] Glucose [Mass/Vol] 80 mg/dL Normal 74 - 99 [facility] Comment on above: Performed By: #### C MP ####[address] [address] HCO3 (Bld) [Moles/Vol] 25 mmol/L Normal 21 - 32 [facility] Comment on above: Performed By: #### C MP ####[address] [address] Potassium [Moles/Vol] 4.5 mmol/L Normal 3.5 - 5.3 [facility] Comment on above: Performed By: #### C MP ####[address] [address] Protein [Mass/Vol] 6.5 g/dL Normal 6.4 - 8.2 [facility] Comment on above: Performed By: #### C MP ####[address] [address] Sodium [Moles/Vol] 134 mmol/L Low 136 - 145 [facility] Comment on above: Performed By: #### C MP ####[address] [place] [address] Urea nitrogen [Mass/Vol] 16 mg/dL Normal 6 - 23 [facility] Comment on above: Performed By: #### C MP ####[address] [place] [address] Medicare Annual Wellness Vis reneen 07-06-2020 Medicare Annual Wellness Visit *Chief Complaint [...] 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 Falls Risk Screening:. BRAYAN has not fallen in the last 6 [...] rash. Still comes and goes. Admitted to [facility]. Dyspnea felt to respiratory. Renal cyst, right [...] of Colonoscopy (more content not included)... Normal [facility] COMPREHENSIVE PANELon 2019 Albumin [Mass/Vol] 3.9 g/dL Normal 3.4 - 5.0 [facility] Comment on above: Performed By: #### C MP ####[address] [address] ALP [Catalytic activity/Vol] 109 U/L Normal 33 - 136 [facility] Comment on above: Performed By: #### C MP ####[address] [address] ALT [Catalytic activity/Vol] 15 U/L Normal 10 - 52 [facility] Comment on above: Result Comment: Latoya ents treated with Sulfasalazine may generate falsely decreased results for ALT. Performed By: #### C MP ####[address] [address] Anion gap [Moles/Vol] 10 mmol/L Normal 10 - 20 [facility] Comment on above: Performed By: #### C MP ####[address] [address] AST [Catalytic activity/Vol] 24 U/L Normal 9 - 39 [facility] Comment on above: Performed By: #### C MP ####[address] Bilirubin [Mass/Vol] 0.8 mg/dL Normal 0.0 - 1.2 [facility] Comment on above: Performed By: #### C MP ####[place] [address] Calcium [Mass/Vol] 9.0 mg/dL Normal 8.6 - 10.3 [facility] Comment on above: Performed By: #### C MP ####[address] Chloride [Moles/Vol] 99 mmol/L Normal 98 - 107 [facility] Comment on above: Performed By: #### C MP ####[address] Creatinine [Mass/Vol] 0.73 mg/dL Normal 0.50 - 1.30 [facility] Comment on above: Performed By: #### C MP ####[address] GFR- AM. >60 Normal >60 [facility] Comment on above: Result Comment: CALC ULATIONS OF ESTIMATED GFR ARE PERFORMED USING THE MDRD STUDY EQUATION FOR THE IDMS-TRACEABLE CREATININE METHODS. CLIN CHEM 2007;53:766-72 Performed By: #### C MP ####[address] [address] GFR-NON AM. >60 Normal >60 [facility] Comment on above: Performed By: #### C MP ####[address] [place] [address] Glucose [Mass/Vol] 98 mg/dL Normal 74 - 99 [facility] Comment on above: Performed By: #### C MP ####[address] [address] HCO3 (Bld) [Moles/Vol] 25 mmol/L Normal 21 - 32 [facility] Comment on above: Performed By: #### C MP ####[address] [address] Potassium [Moles/Vol] 4.5 mmol/L Normal 3.5 - 5.3 [facility] Comment on above: Performed By: #### C MP ####[address] [address] Protein [Mass/Vol] 6.5 g/dL Normal 6.4 - 8.2 [facility] Comment on above: Performed By: #### C MP ####[address] [address] Sodium [Moles/Vol] 129 mmol/L Low 136 - 145 [facility] Comment on above: Performed By: #### C MP ####[address] [address] Urea nitrogen [Mass/Vol] 13 mg/dL Normal 6 - 23 [facility] Comment on above: Performed By: #### C MP ####[address] [address] LIPID PANEL (CORONARY RISK 2 )on 06-30-2020 Cholesterol [Mass/Vol] 95 mg/dL Normal 0 - 199 [facility] Comment on above: Result Comment: . AGE [...] dosing. Performed By: #### B MP #### [address] [address] Cholesterol in HDL [Mass/Vol] 48.0 mg/dL Normal [facility] Comment on above: Result Comment: . AGE VERY LOW LOW NORMAL HIGH 0-19 Y < 35 < 40 40-45 ---- 20-24 Y ---- < 40 >45 ---- >24 Y ---- < 40 40-60 >60 . Performed By: #### B MP #### [address] [address] Cholesterol in LDL [Mass/Vol] 37 mg/dL Normal 0 - 99 [facility] Comment on above: Result Comment: . NEAR BORD AGE DESIRABLE OPTIMAL HIGH HIGH VERY HIGH 0-19 Y 0 - 109 --- 110-129 >/= 130 ---- 20-24 Y 0 - 119 --- 120-159 >/= 160 ---- >24 Y 0 - 99 100-129 130-159 160-189 >/=190 . Performed By: #### B MP #### [address] [address] Cholesterol in VLDL [Mass/Vol] 10 mg/dL Normal 0 - 40 [facility] Comment on above: Performed By: #### B MP #### [address] [address] Cholesterol.total/Loreto sterol in HDL [Mass ratio] 2.0 {ratio} Normal [facility] Comment on above: Result Comment: REF VALUES DESIRABLE < 3.4 HIGH RISK > 5.0 Performed By: #### B MP #### [address] [address] Triglyceride [Mass/Vol] 48 mg/dL Normal 0 - 149 [facility] Comment on above: Result Comment: . AGE [...] Metamizole dosing. Performed By: #### B #### [id number] [place] [address] Provider Note - ED v2on 05-21 Provider [...] made to minimize errors. 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 Please call if questions.. HISTORY OF PRESENTING ILLNESS BRAYAN is a 85 year old Male and [...] Vital Sign Value Date Temp (F): 99 11-19-2020 16:48 Temp (C): 37.2 06-08-2020 16:48 Heart [...] a day (at bedtime) Drug Name: Saw [place] oral capsule Instructions: 1 cap(s) orally once a day (at bedtime) SIGNIFICANT EVENTS: Past Medical History Description:HYPERTENSION / CHOLESTEROLEMIA Past Surgical History Description:PROSTATE CLINICAL IMPRESSION Diagnosis/Annotation: ED Dx Name:Fluid overload Code:E87.70 Name:Drug rash Code:L27.0 Disposition: discharged ATTESTATION CRITICAL CARE TIME Is this a critically ill patient: no Electronic Signatures: Elijah Buckley) (Signed 08-Jun-2020 17:47) Authored: ED Notes, HPI, PMH, Clinical Impression, Attestation, Chart Review, Scores Last Updated: 08-Jun-2020 17:47 by Elijah Bukcley) References: 1. Data Referenced From Triage - ED 08-Jun-2020 16:[address] [facility] Risk Screen - Adult Emergenc yon 06-08-2020 Risk Screen - Adult Emergency Preferred Language: Preferred Language: Preferred Language for Discussing Health Care (patient/designee)Vinay pollack Advanced Directives: Advance Directive/DNRno Family Violence Adult: Abuse Screen: Are you or have you been threatened or abused physically, emotionally, or sexually by anyoneno Learning Assessment (Patient): Learning Assessment (Patient): Patient is Able to be Assessed for Learningyes Factors Influencing Readiness to Learninterest in learning Factors that Impact Ability to Learnnone Devices/Methods Used to Communicatenone Learning Preferencesverbal instruction Cultural Considerationsnone Developmental Considerationsnone Methodist Considerationsnone Learning Assessment (Other Learner): Learning Assessment (Other Learner): Other learner availableno Pressure Injury/TB/Substance: Pressure Injury: Pressure Injury Present on Admissionno Do you have a coughno Substance Use Current or Former Historynever: Cigarette/Tobacco, e-Cigarette/Vaping, Alcohol, Street Drugs Admission Risk Screen: Significant IndicatorsComplete CAGE: CAGE: [place] [place]/[place] /[place] no Electronic Signatures: Christina Venegas (RN) (Signed 08-Jun-2020 16:56) Authored: Preferred Language, Advanced Directives, Family Violence Adult, Learning Assessment (Patient), Learning Assessment (Other Learner), Pressure Injury/TB/Substance, Pressure Injury, CAGE Last Updated: 08-Jun-2020 16:56 by Christina Venegas (RN) [facility] Triage - EDon 06-08-2020 Triage - ED Quick Triage: The patient and/or guardian verbally acknowledges placement for services into the following (when Urgent Care Service hours are operating):emergency department Chart Review: ARRIVAL INFORMATION Mode of Arrival: private vehicle CHIEF COMPLAINT BRAYAN STEVENS is a Male patient with a [...] BMI (kg/m2): 42.704 Calculated BSA (m2) 2.58 [place] Coma Scale: Best Eye Response: (E4) spontaneous [...] Medical History Reviewedyes Electronic Signatures: Christina Venegas (RN) (Signed 08-Jun-2020 16:55) Authored: Quick Triage, Risk Screens, Pain, Chart Review, Scores, Past Medical History Last Updated: 08-Jun-2020 16:55 by Christina Venegas (RN) [facility] Narrative Note - Outpatient- Respiratory Therapyon 06-07-2020 Narrative Note - Outpatient-Respiratory Therapy Narrative Note: Discipline/ClinicRespira tory Therapy Description A 48hr COPD f/u call was made. Pt. breathing is doing a lot better today, pt. is not as short winded as he was. Pt. is having issues with redness and swelling in his legs, Pt. spoke with a nurse from [facility] on a f/u call about his legs. Pt. has a f/u apt. with family doctor on . No tx. were given to pt. upon discharge. Pt. was encouraged to ask family Dr. for a reason for his SOB is it more from CHF Or COPD. I encouraged Pt. to give me a call back with any questions or concerns he may have about COPD. A 2 wk f/u call will be made. Electronic Signatures: Sherri Martines ([employer] (RESPIRATORY)) (Signed 07-Jun-2020 08:49) Authored: Narrative Note - OP Last Updated: 07-Jun-2020 08:49 by Sherri Martines ([employer] ([employer]PIR[employer]ORY)) [facility] BASIC METABOLIC PANELon 11- Anion gap [Moles/Vol] 10 mmol/L Normal 10 - 20 [facility] Comment on above: Performed By: #### B MP #### [address] [address] Calcium [Mass/Vol] 8.8 mg/dL Normal 8.6 - 10.3 [facility] Comment on above: Performed By: #### B MP #### [address] [address] Chloride [Moles/Vol] 99 mmol/L Normal 98 - 107 [facility] Comment on above: Performed By: #### B MP #### [address] [address] Creatinine [Mass/Vol] 0.75 mg/dL Normal 0.50 - 1.30 [facility] Comment on above: Performed By: #### B MP #### [address] [address] GFR- AM. >60 Normal >60 [facility] Comment on above: Result Comment: CALC ULATIONS OF ESTIMATED GFR ARE PERFORMED USING THE MDRD STUDY EQUATION FOR THE IDMS-TRACEABLE CREATININE METHODS. CLIN CHEM 2007;53:766-72 Performed By: #### B MP #### [address] [address] GFR-NON AM. >60 Normal >60 [facility] Comment on above: Performed By: #### B MP #### [address] [address] Glucose [Mass/Vol] 111 mg/dL High 74 - 99 [facility] Comment on above: Performed By: #### B MP #### [address] [address] HCO3 (Bld) [Moles/Vol] 28 mmol/L Normal 21 - 32 [facility] Comment on above: Performed By: #### B MP #### [address] [address] Potassium [Moles/Vol] 3.5 mmol/L Normal 3.5 - 5.3 [facility] Comment on above: Performed By: #### B MP #### [address] [address] Sodium [Moles/Vol] 133 mmol/L Low 136 - 145 [facility] Comment on above: Performed By: #### B MP #### [address] [address] Urea nitrogen [Mass/Vol] 13 mg/dL Normal 6 - 23 [facility] Comment on above: Performed By: #### B MP #### [address] [address] BASIC METABOLIC PANELon 11- Anion gap [Moles/Vol] 14 mmol/L Normal 10 - 20 [facility] Comment on above: Performed By: #### B MP #### [address] [address] Calcium [Mass/Vol] 8.8 mg/dL Normal 8.6 - 10.3 [facility] Comment on above: Performed By: #### B MP #### [address] [address] Chloride [Moles/Vol] 93 mmol/L Low 98 - 107 [facility] Comment on above: Performed By: #### B MP #### [address] [address] Creatinine [Mass/Vol] 0.71 mg/dL Normal 0.50 - 1.30 [facility] Comment on above: Performed By: #### B MP #### [address] [address] GFR- AM. >60 Normal >60 [facility] Comment on above: Result Comment: CALC ULATIONS OF ESTIMATED GFR ARE PERFORMED USING THE MDRD STUDY EQUATION FOR THE IDMS-TRACEABLE CREATININE METHODS. CLIN CHEM 2007;53:766-72 Performed By: #### B MP #### [address] [address] GFR-NON AM. >60 Normal >60 [facility] Comment on above: Performed By: #### B MP #### [address] [address] Glucose [Mass/Vol] 118 mg/dL High 74 - 99 [facility] Comment on above: Performed By: #### B MP #### [address] [address] HCO3 (Bld) [Moles/Vol] 23 mmol/L Normal 21 - 32 [facility] Comment on above: Performed By: #### B MP #### [address] [address] Potassium [Moles/Vol] 3.5 mmol/L Normal 3.5 - 5.3 [facility] Comment on above: Performed By: #### B MP #### [address] [address] Sodium [Moles/Vol] 126 mmol/L Low 136 - 145 [facility] Comment on above: Performed By: #### B MP #### [address] [address] Urea nitrogen [Mass/Vol] 17 mg/dL Normal 6 - 23 [facility] Comment on above: Performed By: #### B MP #### [address] [address] CBCon 06-02-2020 Erythrocyte distribution width (RBC) [Ratio] 13.3 % Normal 11.5 - 14.5 [facility] Comment on above: Performed By: #### C BC ####[address] [address] Hematocrit (Bld) [Volume fraction] 34.5 % Low 41.0 - 52.0 [facility] Comment on above: Performed By: #### C BC ####[address] [address] Hemoglobin (Bld) [Mass/Vol] 11.6 g/dL Low 13.5 - 17.5 [facility] Comment on above: Performed By: #### C BC ####[address] [address] MCHC (RBC) [Mass/Vol] 33.5 g/dL Normal 32.0 - 36.0 [facility] Comment on above: Performed By: #### C BC ####[address] [address] MCV (RBC) [Entitic vol] 90 fL Normal 80 - 100 [facility] Comment on above: Performed By: #### C BC ####[address] [address] Platelets (Bld) [#/Vol] 261 10*3/uL Normal 150 - 450 [facility] Comment on above: Performed By: #### C BC ####[address] [address] RBC (Bld) [#/Vol] 3.84 x10E12/L Low 4.50 - 5.90 [facility] Comment on above: Performed By: #### C BC ####[address] [address] WBC (Bld) [#/Vol] 11.6 10*3/uL High 4.4 - 11.3 [facility] Comment on above: Performed By: #### C BC ####[address] [address] Discharge Saodewh8ix 020 Discharge Profile2 Discharge Orders: Anticipated Discharge Date: Anticipated Discharge [id number] Anticipated Discharge Time10:01 Activity: activity as tolerated. May shower. Diet: Dietlow fat Additional Orders: Additional Instructions repeat BMP on 06/04 Provider FINAL REVIEW of Orders: Final Review: Final Review of Medication Reconciliation and Orders Completedby Physician Reviewing ProviderMalcom Black MD at 02-Jun-2020 10:07:17 Appointments: Follow-Up Appointment 01: Physician/Dept/Lexx Paulino Reason for ReferralHospital Follow-up Call to Schedule in1 week [id number] [place] [address] Phone [phone] AdeleYou will receive a call regarding date and time of appt. Electronic Signatures: Sera Armenta ([employer]) (Signed 02-Jun-2020 10:55) Authored: Appointments Susan Llanes (RN) (Signed 02-Jun-2020 11:07) Authored: Appointments Malcom Black) (Signed 02-Jun-2020 10:07) Authored: Discharge Orders, Provider FINAL REVIEW of Orders, Appointments, [facility] - Surgery Attendant Summary Last Updated: 02-Jun-2020 11:07 by Susan Llanes (RN) Normal [facility] BASIC METABOLIC PANELon 05-21 Anion gap [Moles/Vol] 15 mmol/L Normal 10 - 20 [facility] Comment on above: Performed By: #### B MP #### [address] [address] Calcium [Mass/Vol] 8.8 mg/dL Normal 8.6 - 10.3 [facility] Comment on above: Performed By: #### B MP #### [address] [address] Chloride [Moles/Vol] 92 mmol/L Low 98 - 107 [facility] Comment on above: Performed By: #### B MP #### [address] [address] Creatinine [Mass/Vol] 0.77 mg/dL Normal 0.50 - 1.30 [facility] Comment on above: Performed By: #### B MP #### [address] [address] GFR- AM. >60 Normal >60 [facility] Comment on above: Result Comment: CALC ULATIONS OF ESTIMATED GFR ARE PERFORMED USING THE MDRD STUDY EQUATION FOR THE IDMS-TRACEABLE CREATININE METHODS. CLIN CHEM 2007;53:766-72 Performed By: #### B MP #### [address] [address] GFR-NON AM. >60 Normal >60 [facility] Comment on above: Performed By: #### B MP #### [address] [address] Glucose [Mass/Vol] 121 mg/dL High 74 - 99 [facility] Comment on above: Performed By: #### B MP #### [address] [address] HCO3 (Bld) [Moles/Vol] 23 mmol/L Normal 21 - 32 [facility] Comment on above: Performed By: #### B MP #### [address] [address] Potassium [Moles/Vol] 3.6 mmol/L Normal 3.5 - 5.3 [facility] Comment on above: Performed By: #### B MP #### [address] [address] Sodium [Moles/Vol] 126 mmol/L Low 136 - 145 [facility] Comment on above: Performed By: #### B MP #### [address] [address] Urea nitrogen [Mass/Vol] 23 mg/dL Normal 6 - 23 [facility] Comment on above: Performed By: #### B MP #### [address] [address] CBCon 06-01-2020 Erythrocyte distribution width (RBC) [Ratio] 13.3 % Normal 11.5 - 14.5 [facility] Comment on above: Performed By: #### B MP #### [address] [address] Hematocrit (Bld) [Volume fraction] 33.3 % Low 41.0 - 52.0 [facility] Comment on above: Performed By: #### B MP #### [address] [address] Hemoglobin (Bld) [Mass/Vol] 11.5 g/dL Low 13.5 - 17.5 [facility] Comment on above: Performed By: #### B MP #### [address] [address] MCHC (RBC) [Mass/Vol] 34.6 g/dL Normal 32.0 - 36.0 [facility] Comment on above: Performed By: #### B MP #### [address] [address] MCV (RBC) [Entitic vol] 89 fL Normal 80 - 100 [facility] Comment on above: Performed By: #### B MP #### [address] [address] Platelets (Bld) [#/Vol] 232 10*3/uL Normal 150 - 450 [facility] Comment on above: Performed By: #### B MP #### [address] [address] RBC (Bld) [#/Vol] 3.74 x10E12/L Low 4.50 - 5.90 [facility] Comment on above: Performed By: #### B MP #### [address] [place] [address] WBC (Bld) [#/Vol] 16.9 10*3/uL High 4.4 - 11.3 [facility] Comment on above: Performed By: #### B #### [address] [address] Daily Progress Note-General Internal Medicineon 06-01-2020 Daily Progress Note-General Internal Medicine Service: General Internal Medicine Subjective Data: BRAYAN STEVENS is a 85 year old Male who is Hospital Day # 3. Patient seen and examined. He is eager to go home, denies any fever, chills, chest pain, nausea, vomiting. Still feels a little short of breath. Objective Data: Objective Information: T PRBPSpO2 [id number]/7493% Date/Time06/01 0: 0: 0: 0: 0:30 Range(36.4C [...] hyperpigmented skin changes Medication: Medications: Continuous Medications -------- No continuous medications are active Scheduled Medications -------- 1. Albuterol 2.5mg - Ipratropium 0.5 mg/ [...] Lisinopril: 10 mg Oral Daily PRN Medications -------- 1. Acetaminophen: 650 mg Oral Every 4 Hours 2. Acetaminophen: 650 mg Oral Every 4 Hours 3. Magnesium Hydroxide -Al Hydrox -Simethicone Oral Liquid: 30 mL Oral Every 6 Hours 4. Magnesium Hydroxide Oral Liquid CONCENTRATE: 10 mL Oral Every 24 Hours 5. Ondansetron Injectable: 4 mg IntraVenous Push Every 4 Hours Currently Suspended Medications -------- 1. Furosemide Injectable: 40 mg IntraVenous Push Daily Recent Lab Results: Results: CBC: 06/01/2020 05:12 \ Hgb / \ 11.5 L / WBC Plt 16.9 H 232 / Hct \ / 33.3 L \ RBC: 3.74 L MCV: 89 BMP: 06/01/2020 05:11 NA+ Cl- BUN / 126 L 92 L 23 / -------- Glucose --- 121 H K+ HCO3- Creat \ 3.6 [...] Updated: 01-Jun-2020 10:54 by Malcom Black) [facility] Narrative Note - Outpatient- Respiratory Therapyon 06-01-2020 Narrative Note - Outpatient-Respiratory Therapy Narrative Note: [facility] Description Pt. was seen today for a COPD Assessment. Pt. sees Dr. Ruiz as his PCP. Pt. 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 Pt. has not a had PFT in the past Pt. has never been diagnosed in the past. pt and state we were only told in the ER it could BE COPD or heart. Pt. is a non smoker, but has [...] The pt. was unable to watch the LOUIE video due to the internet being down. Pt. was given the living well with COPD book along with my contact information for any questions they may have. CAT- 21 Stop Bang- High risk, I will send copy to pt. requesting Pt. been seen in the sleep clinic. A 48hr D/c call will be made. Electronic Signatures: Sherri Martines (SUPERVISOR [employer] WORKRO[employer] (RESPIRATORY)) (Signed 01-Jun-2020 14:30) Authored: Narrative Note - OP Last Updated: 01-Jun-2020 14:30 by Sherri Martines (SUPERVISOR [employer] (RESPIRATORY)) Normal [facility] BASIC METABOLIC PANELon 05-21 Anion gap [Moles/Vol] 13 mmol/L Normal 10 - 20 [facility] Comment on above: Performed By: #### B MP #### [address] [address] Calcium [Mass/Vol] 8.8 mg/dL Normal 8.6 - 10.3 [facility] Comment on above: Performed By: #### B MP #### [address] [address] Chloride [Moles/Vol] 95 mmol/L Low 98 - 107 [facility] Comment on above: Performed By: #### B MP #### [address] [address] Creatinine [Mass/Vol] 0.74 mg/dL Normal 0.50 - 1.30 [facility] Comment on above: Performed By: #### B MP #### [address] [address] GFR- AM. >60 Normal >60 [facility] Comment on above: Result Comment: CALC ULATIONS OF ESTIMATED GFR ARE PERFORMED USING THE MDRD STUDY EQUATION FOR THE IDMS-TRACEABLE CREATININE METHODS. CLIN CHEM 2007;53:766-72 Performed By: #### B MP #### [address] [address] GFR-NON AM. >60 Normal >60 [facility] Comment on above: Performed By: #### B MP #### [address] [address] Glucose [Mass/Vol] 176 mg/dL High 74 - 99 [facility] Comment on above: Performed By: #### B MP #### [address] [address] HCO3 (Bld) [Moles/Vol] 23 mmol/L Normal 21 - 32 [facility] Comment on above: Performed By: #### B MP #### [address] [address] Potassium [Moles/Vol] 3.7 mmol/L Normal 3.5 - 5.3 [facility] Comment on above: Performed By: #### B MP #### [address] [address] Sodium [Moles/Vol] 127 mmol/L Low 136 - 145 [facility] Comment on above: Performed By: #### B MP #### [address] [address] Urea nitrogen [Mass/Vol] 16 mg/dL Normal 6 - 23 [facility] Comment on above: Performed By: #### B MP #### [address] [address] [address] CHEST W CONTRASTon 2019 CT CHEST W CONTRAST Patient Name: BRAYAN STEVENS STUDY: CT CHEST W CONTRAST; 05/31/2020 8:18 am INDICATION: Dyspnea and wheezing in a non-smoker with asbestos exposure. COMPARISON: No available comparisons. ACCESSION NUMBER(S): [id number] ORDERING CLINICIAN: MALGORZATA HADLEY TECHNIQUE: CT of the chest was performed with IV contrast. 90 mL of Optiray was administered intravenously. Coronal and sagittal reformatted images were obtained. FINDINGS: SUPPORT DEVICES: None. CHEST WALL AND LOWER NECK: No supraclavicular or axillary lymphadenopathy by CT size criteria. MEDIASTINUM AND TIKA: No lymphadenopathy by CT size criteria. VESSELS: [...] Electronically signed by: BELLO HERNANDEZ MD [facility] Daily Progress Note-General Internal Medicineon 05-31-2020 Daily Progress Note-General Internal Medicine Service: General Internal Medicine Subjective Data: BRAYAN STEVENS is a 85 year old Male who is Hospital Day # 2. Patient seen and examined. He is feeling much better, reports significant improvement in breathing. No nausea, vomiting, fever or chills. Objective Data: Objective Information: T PRBPSpO2 Value36.76016710/8893% Date/Time05/31 8: 8: 8: 8: 8:21 Range(36.2C [...] hyperpigmented skin changes Medication: Medications: Continuous Medications -------- No continuous medications are active Scheduled Medications -------- 1. Albuterol 2.5mg - Ipratropium 0.5 mg/ [...] Lisinopril: 10 mg Oral Daily PRN Medications -------- 1. Acetaminophen: 650 mg Oral Every 4 [...] / 127 L 95 L 16 / -------- Glucose --- 176 H K+ HCO3- Creat \ 3.7 23 0.74 \ Calcium : 8.8 Anion Gap : 13 Recent Arterial Blood Gas Results 05/30/2020 19:40 pO274 pH7.47 tBE246 SO297 Base Excess0.9 Isloujwfdie45.0 Assessment and Plan: Code Status: Code StatusFull [...] Updated: 31-May-2020 11:24 by Malcom Black) [facility] Discharge Planning [id number] 1 07-31-2019 Discharge Planning Note2 Discharge Planning: Planned Dispositionhome Discharge DestinationHome AMPAC < 20no Anticipated Discharge [id number] Discharge Planning Care Transitions Note: 05-31-2020 1515 [...] is supportive and his daughter lives in [place]. Pt's daughter checks in with Pt and as needed. Pt voiced no difficulty obtaining meds as prescribed. Pt intends to return home with his . Pt anticipates no home-going needs. Pt's AMPAC is 24--appropriate for home-going. SW encouraged Pt to contact CT should any needs arise. Plan: Pt home with when ready. PAUL Tan, ICE SELLER Pharmacy Discharge Counseling 06/02/20 Discussed discharge medications with patient. Patient was given home medication summary and [employer] patient education handout for lisinopril and levofloxacin. Reviewed when next doses of medications are due based on home medication summary. Counseled patient on purpose, side effects, and how to take new medications. Informed patient that new RX's were sent to [facility] pharmacy. Patients questions were answered and he and had a good understanding. Sherri Chapa, MartinezD, [facility] Discharge Note: 06/02/2020 1107 Discharge [...] work explained and given to pt. Familia DONATOdisaster recovery specialist Note: 06/02/2020 1237 Discharged via wheelchair to private car accompanied by PCT, personal belongings taken by patient, no distress noted, no complaints voiced. Familia community affairs director: Discharge Planning Assessment [id number] Stated Reason for Admissioncouldn't breathe(1) [place] Lives Withspouse(1) Living Arrangementshouse(1) Resource/Environmental Concernsnone(1) Anticipated Transition [place](1) Services Anticipated at Transitionnone(1) Nursing Checklist: Lines/Cathetersremoved/a ppropriate for next level of care Discharge Med Rec Reconciled with Maranda Patient has Prescriptionsyes Transportation for Discharge Confirmedyes Follow up Reviewedyes Discharge Instructions Reviewed WithPatient, Significant Other Discharge Instructions Outcomeverbalize recall/understanding Discharge Instructions Review Completed with Patient/Family (diet, activity, pt instructions)yes Discharge Documentation: Discharge/Transfer Date/[id number] 12:37 Discharge Modewheelchair Discharged Accompanied Byspouse Transportation Methodprivate car Valuables/Medications/Be longings Returnedyes Final DispositionHome Electronic Signatures: Sherri Chapa ([facility]) (Signed 02-Jun-2020 10:57) Authored: Discharge Planning Susan Llanes (RN) (Signed 02-Jun-2020 14:50) Authored: Discharge Planning, Nursing Checklist, Discharge Documentation Donna Guerrier (SENIOR WEB ARCHITECT) (Signed 31-May-2020 15:28) Authored: Discharge Planning, Assessment Last Updated: 02-Jun-2020 14:50 by Susan Llanes (RN) References: 1. Data Referenced From Patient Profile - [facility] v2 30[facility]2020 [facility] Hemoglobin (Bld) [Mass/Vol] 11.8 g/dL Low 13.5 - 17.5 [facility] Comment on above: Performed By: #### B MP #### [place] [address] ARTERIAL BLOOD GASon 020 APPARATUS Cannula Normal [facility] Comment on above: Performed By: #### B MP #### [place] [address] BASE EXCESS-BLOOD 0.9 mmol/L Normal -2.0 - 3.0 [facility] Comment on above: Performed By: #### B MP #### [place] [address] FIO2 28 % Normal [facility] Comment on above: Performed By: #### B MP #### [address] [address] Oxygen (Bld) [Partial pressure] 74 mm[Hg] Low 85 - 95 [facility] Comment on above: Performed By: #### B MP #### [id number] PCO2 33 mmHg Low 38 - 42 [facility] Comment on above: Performed By: #### B MP #### [id number] pH (Bld) 7.47 [pH] High 7.38 - 7.42 [facility] Comment on above: Performed By: #### B MP #### [id number] RBC (Bld) [#/Vol] 24.0 mmol/L Normal 22.0 - 26.0 [facility] Comment on above: Performed By: #### B MP #### [place] [address] SO2 97 % Normal 94 - 100 [facility] Comment on above: Performed By: #### B MP #### [id number] Admission Risk Screen - Adul ton 05-30-2020 Admission Risk Screen - Adult Allergies: Allergies: No Known Allergies: Patient Verification: New W ID Band Applied in my Departmentno Type of ID Patient is WearingW wristband, but not applied here Patient Transferred from Other Facility ([facility], [facility],etc)no Patient Identity Verified Bypatient ID Band FULL [...] Advance Directive typeLiving Will, Durable Power of Weigh And Charge Worker for Healthcare(1) Living Will AvailabilityLiving Will not available now Living Will [id number] Durable Power of Weigh And Charge Worker AvailabilityDPOA not available now Durable Power of Weigh And Charge Worker [id number] Durable Power of Weigh And Charge Worker contact (name and number)Osmany Stevens Advanced Directive Commentshould be on file Lawson Fall Screen: History of falling (immediate or previous)no (0) Secondary Diagnosisyes (15) Intravenous Therapy/ Heparin/Saline Lockyes (20) Gait/Transferringnormal/ bedrest/wheelchair (0) Ambulatory Aidsnone/bedrest/nurse assist (0) Mental Statusoriented [...] Learning Preferencesverbal instruction Cultural Considerationsnone Developmental Considerationsnone Methodist Considerationsnone Learning Assessment (Other Learner): Other learner availableno Depression Screen: During the past month, have you often been bothered by feeling down, depressed or hopelessno During the past month, have you often had little interest or pleasure in doing thingsno Have you had any thoughts of harming anyone elseno (2) [place] Suicide: Risk Screen Not Applicable/Able to Answerable to be screened In the Past Month: Have you wished you were or could go to sleep and not wake upno(2) In the Past Month: Have you had any actual thoughts of killing yourself no(2) Lifetime: Have you ever done, started to do, or prepared to do anything to end your lifeno [place] Suicide Risknegative Adult Nutrition Screen: Have you [...] Spiritual Screen: Are there any cultural, spiritual, alevism practices/values/needs that are important for us to knowno CAGE: [place] an [place] a [place] [place]/[place] /[place] no (1) Vaccinations: Vaccination - Influenza Vaccination [...] From Triage - ED 30-May-2020 10:48 Normal [facility] BNPon 05-30-2020 Natriuretic peptide B (Bld) [Mass/Vol] 207 pg/mL High 0 - 99 [facility] Comment on above: Result Comment: . <1 00 pg/mL - Heart failure unlikely 100-299 pg/mL - Intermediate probability of acute heart . failure exacerbation. Correlate with clinical . context and patient history. >=300 pg/mL - Heart Failure likely. Correlate with clinical . context and patient history. BNP testing is performed using different testing methodology at [facility] than at other [facility]. Direct result comparisons should only be made within the same method. Performed By: #### B NP2 ####[address] [address] CBC AND DIFFERENTIALon 05-30 Basophils (Bld) [#/Vol] 0.10 10*3/uL Normal 0.00 - 0.1 0 [facility] Comment on above: Performed By: #### B MP #### [address] [address] Basophils/100 WBC (Bld) 0.7 % Normal 0.0 - 2.0 [facility] Comment on above: Performed By: #### B MP #### [address] [address] Eosinophils (Bld) [#/Vol] 0.00 10*3/uL Normal 0.00 - 0.40 [facility] Comment on above: Performed By: #### B MP #### [address] [address] Eosinophils/100 WBC (Bld) 0.3 % Normal 0.0 - 6.0 [facility] Comment on above: Performed By: #### B MP #### [address] [address] Erythrocyte distribution width (RBC) [Ratio] 13.3 % Normal 11.5 - 14.5 [facility] Comment on above: Performed By: #### B MP #### [address] [address] Hematocrit (Bld) [Volume fraction] 38.0 % Low 41.0 - 52.0 [facility] Comment on above: Performed By: #### B MP #### [address] [address] Hemoglobin (Bld) [Mass/Vol] 12.8 g/dL Low 13.5 - 17.5 [facility] Comment on above: Performed By: #### B MP #### [address] [address] Lymphocytes (Bld) [#/Vol] 0.70 10*3/uL Low 0.80 - 3.00 [facility] Comment on above: Performed By: #### B MP #### [address] [address] Lymphocytes/100 WBC (Bld) 6.6 % Normal 13.0 - 44.0 [facility] Comment on above: Performed By: #### B MP #### [address] [address] MCHC (RBC) [Mass/Vol] 33.8 g/dL Normal 32.0 - 36.0 [facility] Comment on above: Performed By: #### B MP #### [address] [address] MCV (RBC) [Entitic vol] 90 fL Normal 80 - 100 [facility] Comment on above: Performed By: #### B MP #### [address] [address] Monocytes (Bld) [#/Vol] 1.10 10*3/uL High 0.05 - 0.8 0 [facility] Comment on above: Performed By: #### B MP #### [address] [address] Monocytes/100 WBC (Bld) 10.5 % Normal 2.0 - 10.0 [facility] Comment on above: Performed By: #### B MP #### [address] [address] Neutrophils (Bld) [#/Vol] 8.90 10*3/uL High 1.60 - 5.50 [facility] Comment on above: Result Comment: Perc ent differential counts (%) should be interpreted in the context of the absolute cell counts (cells/L). Performed By: #### B MP #### [address] [address] Neutrophils/100 WBC (Bld) 81.9 % Normal 40.0 - 80.0 [facility] Comment on above: Performed By: #### B MP #### [address] [address] Nucleated RBC/100 WBC (Bld) [Ratio] 0.6 /100 WBC Normal [facility] Comment on above: Performed By: #### B MP #### [address] [address] Platelets (Bld) [#/Vol] 257 10*3/uL Normal 150 - 450 [facility] Comment on above: Performed By: #### B MP #### [address] [address] RBC (Bld) [#/Vol] 4.23 x10E12/L Low 4.50 - 5.90 [facility] Comment on above: Performed By: #### B MP #### [address] [address] WBC (Bld) [#/Vol] 10.9 10*3/uL Normal 4.4 - 11.3 [facility] Comment on above: Performed By: #### B MP #### [address] [address] CHEST 1 VIEWon 05-30-2020 CHEST 1 VIEW Patient Name: BRAYAN STEVENS STUDY: CHEST 1 VIEW; 05/30/2020 10:49 am INDICATION: chf. COMPARISON: None. ACCESSION NUMBER(S): [id number] ORDERING CLINICIAN: HONEY BOUDREAUX FINDINGS: A single AP portable radiograph of the chest was obtained. Artifact from overlying monitoring leads noted. Slight fluid or thickening of the right horizontal fissure. Subtle density of the left lower chest may be related to underpenetration. The cardiac silhouette is mildly enlarged. IMPRESSION: Mild cardiomegaly. Slight fluid or thickening in the right horizontal fissure. Electronically signed by: RUPERT FISHER MD Normal [facility] COMPREHENSIVE PANELon 2019 Albumin [Mass/Vol] 4.1 g/dL Normal 3.4 - 5.0 [facility] Comment on above: Performed By: #### C MP #### [address] [address] ALP [Catalytic activity/Vol] 128 U/L Normal 33 - 136 [facility] Comment on above: Performed By: #### C MP #### [address] [address] ALT [Catalytic activity/Vol] 19 U/L Normal 10 - 52 [facility] Comment on above: Result Comment: Latoya ents treated with Sulfasalazine may generate falsely decreased results for ALT. Performed By: #### C MP #### [address] [address] Anion gap [Moles/Vol] 13 mmol/L Normal 10 - 20 [facility] Comment on above: Performed By: #### C MP #### [address] [address] AST [Catalytic activity/Vol] 24 U/L Normal 9 - 39 [facility] Comment on above: Performed By: #### C MP #### [address] [address] Bilirubin [Mass/Vol] 1.4 mg/dL High 0.0 - 1.2 [facility] Comment on above: Performed By: #### C MP #### [address] [address] Calcium [Mass/Vol] 9.1 mg/dL Normal 8.6 - 10.3 [facility] Comment on above: Performed By: #### C MP #### [address] [address] Chloride [Moles/Vol] 94 mmol/L Low 98 - 107 [facility] Comment on above: Performed By: #### C MP #### [address] [address] Creatinine [Mass/Vol] 0.68 mg/dL Normal 0.50 - 1.30 [facility] Comment on above: Performed By: #### C MP #### [address] [address] [id number] GFR- AM. >60 Normal >60 [facility] Comment on above: Result Comment: CALC ULATIONS OF ESTIMATED GFR ARE PERFORMED USING THE MDRD STUDY EQUATION FOR THE IDMS-TRACEABLE CREATININE METHODS. CLIN CHEM 2007;53:766-72 Performed By: #### C MP #### [address] [address] GFR-NON AM. >60 Normal >60 [facility] Comment on above: Performed By: #### C MP #### [address] [address] Glucose [Mass/Vol] 133 mg/dL High 74 - 99 [facility] Comment on above: Performed By: #### C MP #### [address] [address] HCO3 (Bld) [Moles/Vol] 25 mmol/L Normal 21 - 32 [facility] Comment on above: Performed By: #### C MP #### [address] [address] Potassium [Moles/Vol] 3.5 mmol/L Normal 3.5 - 5.3 [facility] Comment on above: Performed By: #### C MP #### [place] [address] Protein [Mass/Vol] 7.3 g/dL Normal 6.4 - 8.2 [facility] Comment on above: Performed By: #### C MP #### [place] [address] Sodium [Moles/Vol] 128 mmol/L Low 136 - 145 [facility] Comment on above: Performed By: #### C MP #### [place] [address] Urea nitrogen [Mass/Vol] 9 mg/dL Normal 6 - 23 [facility] Comment on above: Performed By: #### C MP #### [place] [address] CORONAVIRUS 2019 BY PCRon CORONAVIRUS 2019,PCR NOT DETECTED Normal Not Detected [facility] Comment on above: Result Comment: . This assay is designed to detect the N2 and E genes of SARS-CoV-2 via nucleic acid amplification. A Not Detected result does not preclude COVID-19 infection since the adequacy of sample collection and/or low viral burden may result in presence of viral nucleic acids below the clinical sensitivity of this test method. Fact sheet for providers: www.fda.gov/media/221716/download Fact sheet for patients: www.fda.gov/media/552739/download This test has received FDA Emergency Use Authorization (EUA) and has been verified by [facility]. This test is only authorized for the duration of time that circumstances exist to justify the authorization of the emergency use of in vitro diagnostic tests for the detection of SARS-CoV-2 virus and/or diagnosis of COVID-19 infection under section 564(b)(1) of the Act, 21 U.S.C. 360bbb-3(b)(1), unless the authorization is terminated or revoked sooner. [facility] is certified under CLIA-88 as qualified to perform high complexity testing. Testing is performed in [facility] located at [address] [place] [address]. Performed By: #### C OV19 #### [place] [address] Lab Specimen Source Nasal, Nasopharyngeal Normal [facility] Comment on above: Performed By: #### C OV19 #### [place] [address] DATE OF SYMPTOM ONSET [YYYYMMDD]? 20200530 Normal [facility] Comment on above: Performed By: #### C OV19 #### [place] [address] EMPLOYED IN HEALTHCARE? No Normal [facility] Comment on above: Performed By: #### C OV19 #### [place] [address] FIRST COVID NASAL SWAB TEST? Yes [facility] Comment on above: Performed By: #### C OV19 #### [place] [address] HOSPITALIZED (OR PLANNED TO BE ADMITTED)? Yes [facility] Comment on above: Performed By: #### C OV19 #### [place] [address] ICU? No Normal [facility] Comment on above: Performed By: #### C OV19 #### [place] [address] RESIDENT IN CONGREGATE CARE SETTING? No [facility] Comment on above: Performed By: #### C OV19 #### [place] [address] SYMPTOMATIC DEFINED BY [facility]? Yes Normal [facility] Comment on above: Performed By: #### C OV19 #### [place] [address] CREATINE KINASEon 05-30-2020 CK [Catalytic activity/Vol] 155 U/L Normal 0 - 325 [facility] Comment on above: Performed By: #### B MP #### [place] [address] History and Physicalon 05-30 History and Physical History of Present Illness: HPI: BRAYAN STEVENS is a 85 year old Male [...] any hemoptysis. He did not try any wojl-ofq-xnirzty medications. He thought about contacting his primary [...] No Known Allergies: Medications Prior to Admission: lisinopril-hydrochloroth iazide 10 mg-12.5 mg oral tablet: 1 tab(s) [...] 1 cap(s) orally once a day Saw [place] oral capsule: 1 cap(s) orally once a day. Objective: Objective Information: T PRBPSpO2 [id number]/7095% Date/Time05/30 10: 17: 17: 17: 17:35 Range(36.5C - 36.5C [...] hyperpigmented skin changes Medications: Medications: Continuous Medications -------- No continuous medications are active Scheduled Medications -------- 1. Albuterol 2.5mg - Ipratropium 0.5 mg/ [...] 150 mL IntraVenous Push Once PRN Medications -------- 1. Acetaminophen: 650 mg Oral Every 4 Hours 2. Acetaminophen: 650 mg Oral Every 4 Hours 3. Magnesium Hydroxide -Al Hydrox -Simethicone Oral Liquid: 30 mL Oral Every 6 Hours 4. Magnesium Hydroxide Oral Liquid CONCENTRATE: 10 mL Oral Every 24 Hours 5. Ondansetron Injectable: 4 mg IntraVenous Push Every 4 Hours Conditional Medication Orders -------- 1. Perflutren Lipid Microsphere (Activated) 1.3 mL [...] Apparatus Cannula Troponin I, Serum Trending View [id number] 15:40:00 30-May-2020 11:06:00 Troponin I, Serum0.02 0.03 [...] spent the coordination of this patient's admission. Signatures/Attestation/C ertification: Note Completion: Attending Provider Inpatient Certification StatementI certify this patients need for inpatient care based on the above documentation including; the order to admit as inpatient, the anticipated length of stay, diagnosis, problem list and plan of care, and discharge plan. Admission Order - View OnlyCurrent Admission Order. Admit to Inpatient Adult [facility] Admitting Diagnosis, R06.00 Dyspnea;E66.9 Obesity (BMI 30.0-34.9) , Attending Provider Malgorzata Hadley Level of Care, Med/Surg Malgorzata Hadley Admission Order Certification order has been placed by Malgorzata Hadley Electronic Signatures: Malgorzata Hadley) (Signed 30-May-2020 20:23) Authored: History of Present Illness, Comorbidities, Allergies, Medications Prior to Admission, Objective, Assessment and Plan, Note Completion Last Updated: 30-May-2020 20:23 by Malgorzata Hadley) [facility] Patient Profile - Adult v2on 05-30-2020 Patient Profile - Adult v2 Profile: Initial Info: How to be AddressedDutch Spoken Language PreferredEnglish Stated Reason for Admissioncouldn't breathe Patient Belongingsremains with patient Patient Belongings Remaining with Patienthearing aids; vision aids [place] Brought to Hospitalno Are you currently using the Personal Electronic Health Record or [employer] Are you interested in learning more about [employer] for the management of your healthnot at this time Wants Family/Rep Notified of Admissionn/a; family present Notify PCPnotify PCP Informed of Patient Visiting [facility] General Health: Weight in kg125 kilogram(s)(1) Weight in sgb334.5 pound(s) Weight Methodactual (measured) Scale Typebed Height in cm180.3 centimeter(s) Height in feet5 feet(1) Height in rcubjr52 inch(es)(1) Height Methodstated BMI (kg/m2)38.451 square meter [...] Note - ED v2 30-May-2020 11:[address] [facility] Provider Note - ED v2on 11 Provider Note - ED v2 Provider Note [...] a medical floor. HISTORY OF PRESENTING ILLNESS BRAYAN is a 85 year old Male and [...] Status: Patient Currently Takes Medications Drug Name: lisinopril-hydrochloroth iazide 10 mg-12.5 mg oral tablet Instructions: 1 [...] orally once a day Drug Name: Saw [place] oral capsule Instructions: 1 cap(s) orally once a day SIGNIFICANT EVENTS: Past Medical History Description:HYPERTENSION / CHOLESTEROLEMIA Past Surgical History Description:PROSTATE CIGARETTE USE DETAIL: Cigarette Smoking Status: unknown if ever smoked TOBACCO USE DETAIL: Current Tobacco Use: chewing tobacco RESULTS/VITAL SIGNS RESULTS: Recent Lab Results: I have reviewed these laboratory results: Troponin I, Serum Trending View [id number] 15:40:00 30-May-2020 11:06:00 Troponin I, Serum0.02 0.03 [...] SIGNS: T PRBP SpO2O2(LPM) %FiO2 Method 30-May-2020 16:15:[id number]/88 98 30-May-2020 13:51:[id number]/66 97 30-May-2020 12:22:00-942987/76 30-May-2020 11:43:00-848564/86 99 30-May-2020 11:00:00-9599124/73 97 supplemental O2 30-May-2020 10:48:[id number]/89 92 room air, no respiratory support EKG INTERPRETATION #1: EKG Date/Time: 30-May-2020 10:40 Rate: 81 Impression: Atrial fibrillation with normal ventricular response Indication: dyspnea Rhythm: Atrial Fibrillation STEMI: no [place]: Left Prior EKG: no old EKG available [...] mild Code:J44.9 Dispostion: hospitalized Admit to: [facility] [place]. Admitting Considerations: ATTESTATION CRITICAL CARE TIME Is [...] relating to pts condition Electronic Signatures: Honey Boudreaux) (Signed 30-May-2020 17:12) Authored: ED Notes, HPI, PMH, PE, Results/Vital Signs, EKG, Clinical Impression, Attestation, Chart Review, Scores Last Updated: 30-May-2020 17:12 by Honey Boudreaux () References: 1. Data Referenced From Provider Note - ED v2 30-May-2020 11:[address] [facility] Provider Note - ED v2 This report has be en cancelled. Normal [facility] Risk Screen - Adult Emergenc yon 05-30-2020 Risk Screen - Adult Emergency Preferred Language: Preferred Language: Preferred Language for Discussing Health Care (patient/designee)Vinay pollack Advanced Directives: Advance Directive/DNRyes Advance Directive typeLiving Will, Durable Power of Weigh And Charge Worker for Healthcare Living Will AvailabilityLiving Will not available now Living Will [id number] Durable Power of Weigh And Charge Worker AvailabilityDPOA not available now Durable Power of Weigh And Charge Worker [id number] Family Violence Adult: Abuse Screen: Are you [...] instruction; written material Cultural Considerationsnone Developmental Considerationsnone Methodist Considerationsnone Learning Assessment (Other Learner): Learning Assessment (Other Learner): Other learner availableyes... Learnerspouse Factors Influencing Readiness to Learnanxiety Factors that Impact Ability to Learnnone Devices/Methods Used to Communicatenone Learning Preferencesindividual instruction, skill demonstration, verbal instruction Cultural Considerationsnone Developmental Considerationsnone Methodist Considerationsnone Pressure Injury/TB/Substance: Pressure Injury: Pressure Injury Present on Admissionno Do you have a coughno Admission Risk Screen: Significant IndicatorsComplete CAGE: CAGE: Is this an [place] a [place] [place]/[place] /[place] no Electronic Signatures: Fannie Laurent (TANMAY) (Signed 30-May-2020 10:53) Authored: Preferred Language, Advanced Directives, Family Violence Adult, Learning Assessment (Patient), Learning Assessment (Other Learner), Pressure Injury/TB/Substance, Pressure Injury, CAGE Last Updated: 30-May-2020 10:53 by Fannie Laurent (TANMAY) [facility] TROPONIN Ion 05-30-2020 Troponin I.cardiac [Mass/Vol] 0.02 ng/mL Normal 0.00 - 0.03 [facility] Comment on above: Result Comment: LESS THAN [...] is performed using different testing methodology at [facility] than at [facility]. Direct result comparisons should only be made within the same method. Performed By: #### T ROP2 #### [address] [address] Troponin I.cardiac [Mass/Vol] 0.03 ng/mL Normal 0.00 - 0.03 [facility] Comment on above: Result Comment: LESS THAN [...] is performed using different testing methodology at [facility] than at other [facility]. Direct result comparisons should only be made within the same method. Performed By: #### B MP #### [address] [address] Triage - EDon 05-30-2020 Triage - ED Chart Review: ARRIVAL INFORMATION Mode of Arrival: private vehicle CHIEF COMPLAINT BRAYAN STEVENS is a Male patient with a [...] BMI (kg/m2): 38.451 Calculated BSA (m2) 2.50 Bonneau Coma Scale: Best Eye Response: (E4) spontaneous Best Motor Response: (M6) obeys commands Best Verbal Response: (V5) oriented Bonneau Score: 15 Patient has homicidal thoughts: no [...] Past Medical History Reviewedyes Electronic Signatures: Fannie Laurent) (Signed 30-May-2020 10:52) Authored: Quick Triage, Risk Screens, Pain, Chart Review, Scores, Past Medical History Last Updated: 30-May-2020 10:52 by Fannie Laurent (RN) Normal [facility] COMPREHENSIVE PANELon 2019 Albumin [Mass/Vol] 4.0 g/dL Normal 3.4 - 5.0 [facility] Comment on above: Performed By: #### C MP #### [address] [address] ALP [Catalytic activity/Vol] 87 U/L Normal 33 - 136 [facility] Comment on above: Performed By: #### C MP #### [address] [address] ALT [Catalytic activity/Vol] 11 U/L Normal 10 - 52 [facility] Comment on above: Result Comment: Latoya ents treated with Sulfasalazine may generate falsely decreased results for ALT. Performed By: #### C MP #### [address] [address] Anion gap [Moles/Vol] 10 mmol/L Normal 10 - 20 [facility] Comment on above: Performed By: #### C MP #### [address] [address] AST [Catalytic activity/Vol] 15 U/L Normal 9 - 39 [facility] Comment on above: Performed By: #### C MP #### [address] [address] Bilirubin [Mass/Vol] 0.7 mg/dL Normal 0.0 - 1.2 [facility] Comment on above: Performed By: #### C MP #### [address] [address] Calcium [Mass/Vol] 9.4 mg/dL Normal 8.6 - 10.3 [facility] Comment on above: Performed By: #### C MP #### [address] [address] Chloride [Moles/Vol] 99 mmol/L Normal 98 - 107 [facility] Comment on above: Performed By: #### C MP #### [address] [address] Creatinine [Mass/Vol] 0.87 mg/dL Normal 0.50 - 1.30 [facility] Comment on above: Performed By: #### C MP #### [address] [address] GFR- AM. >60 Normal >60 [facility] Comment on above: Result Comment: CALC ULATIONS OF ESTIMATED GFR ARE PERFORMED USING THE MDRD STUDY EQUATION FOR THE IDMS-TRACEABLE CREATININE METHODS. CLIN CHEM 2007;53:766-72 Performed By: #### C MP #### [address] [address] GFR-NON AM. >60 Normal >60 [facility] Comment on above: Performed By: #### C MP #### [address] [address] Glucose [Mass/Vol] 107 mg/dL High 74 - 99 [facility] Comment on above: Performed By: #### C MP #### [address] [address] HCO3 (Bld) [Moles/Vol] 28 mmol/L Normal 21 - 32 [facility] Comment on above: Performed By: #### C MP #### [address] [address] Potassium [Moles/Vol] 4.0 mmol/L Normal 3.5 - 5.3 [facility] Comment on above: Performed By: #### C MP #### [address] [address] Protein [Mass/Vol] 6.9 g/dL Normal 6.4 - 8.2 [facility] Comment on above: Performed By: #### C MP #### [address] [address] Sodium [Moles/Vol] 133 mmol/L Low 136 - 145 [facility] Comment on above: Performed By: #### C MP #### [address] [address] Urea nitrogen [Mass/Vol] 16 mg/dL Normal 6 - 23 [facility] Comment on above: Performed By: #### C #### [facility] [address] [id number] Provider Note - ED v2on 01-20 Provider Note - ED v2 Provider Note - ED v2: Chart Review: ED NOTES ED NOTES: Patient came in with complaints of insect bites and sore infection on the buttock bite. Patient denies any pain. Patient's says some watery liquid was coming out of the one on the buttock. Patient denies fevers headaches blurred vision nausea vomiting constipation diarrhea. HISTORY OF PRESENTING ILLNESS BRAYAN is a 84 year old Male and [...] Status: Patient Currently Takes Medications Drug Name: lisinopril-hydrochloroth iazide 10 mg-12.5 mg oral tablet Instructions: 1 [...] a day SIGNIFICANT EVENTS: Past Medical History Description:HYPERTENSION / CHOLESTEROLEMIA Past Surgical History Description:PROSTATE REVIEW OF SYSTEMS INTEGUMENTARY: ( Patient has right cheek bug bite on buttock.Patient also has 4 bug bites on the left conroy.) All other systems reviewed and are negative RESULTS/VITAL SIGNS VITAL SIGNS: T PRBP SpO2O2(LPM) %FiO2 Method 17-Feb-2020 13:43:00-36.404782/87 PHYSICAL EXAM CONSTITUTIONAL: Well appearing, well nourished, [...] ill patient: no Electronic Signatures: Margret Cote ([employer]ER[employer]QUICK[employer] BOOKKEEPER) (Signed 17-Feb-2020 14:30) Authored: Provider Note - ED v2 Last Updated: 17-Feb-2020 14:30 by Margret Cote ([employer] BOOKKEEPER) Normal [facility] Potassiumon 02-10-2019 Potassium [Moles/Vol] 3.5 mmol/L Normal 3.5-5.3 [facility] Comment on above: Performed By: #### 2 [id number] #### [employer] [address] [place] [address] CMPon 12-31-2018 Albumin [Mass/Vol] 3.9 g/dL Normal 3.4-5.0 [facility] Comment on above: Performed By: #### 2 201720 #### [employer] [address] [place] [address] Albumin/Globulin [Mass ratio] 1.2 {ratio} Normal 1.1-1.9 [facility] Comment on above: Performed By: #### 2 [id number] #### [facility] [employer] [address] [place] [address] Alk Phos 107 Int._Unit/L Normal 33-136 [facility] Comment on above: Performed By: #### 2 [id number] #### [facility] [employer] [address] [place] [address] ALT [Catalytic activity/Vol] 13 Int._Unit/L Normal 10-52 [facility] Comment on above: Performed By: #### 2 [id number] #### [facility] [employer] [address] [place] [address] Anion gap [Moles/Vol] 11 mmol/L Normal 10-20 [facility] Comment on above: Performed By: #### 2 [id number] #### [facility] [employer] [address] [place], [place] [id number] AST [Catalytic activity/Vol] 20 Int._Unit/L Normal 9-39 [facility] Comment on above: Performed By: #### 2 [id number] #### [facility] [employer] [address] [place] [address] Bili Total 0.80 mg/dL Normal 0.00-1.20 [facility] Comment on above: Performed By: #### 2 947276 #### [facility] [employer] [address] [place], [place] [id number] Calcium [Mass/Vol] 9.1 mg/dL Normal 8.6-10.3 [facility] Comment on above: Performed By: #### 2 963312 #### [employer] [address] [place] [address] Chloride [Moles/Vol] 103 mmol/L Normal 98-107 [facility] Comment on above: Performed By: #### 2 973030 #### [employer] [address] [place] [address] CO2 [Moles/Vol] 26.0 mmol/L Normal 21.0-32.0 [facility] Comment on above: Performed By: #### 2 254340 #### [facility] [employer] [address] [place] [address] Creatinine [Mass/Vol] 0.7 mg/dL Normal 0.5-1.3 [facility] Comment on above: Performed By: #### 2 952981 #### [employer] [address] [place] [address] Globulin (S) [Mass/Vol] 3.0 g/dL Normal 2.0-4.0 [facility] Comment on above: Performed By: #### 2 941288 #### [employer] [address] [place] [address] Glucose [Mass/Vol] 105 mg/dL High 70-99 [facility] Comment on above: Performed By: #### 2 396230 #### [employer] [address] [place] [address] Potassium [Moles/Vol] 3.3 mmol/L Low 3.5-5.3 [facility] Comment on above: Performed By: #### 2 755024 #### [employer] [address] [place] [address] Protein [Mass/Vol] 7.1 g/dL Normal 6.4-8.2 [facility] Comment on above: Performed By: #### 2 220095 #### [employer] [address] [place] [address] Sodium [Moles/Vol] 137 mmol/L Normal 136-145 [facility] Comment on above: Performed By: #### 2 903725 #### [employer] [address] [place] [address] Urea nitrogen [Mass/Vol] 10 mg/dL Normal 6-23 [facility] Comment on above: Performed By: #### 2 041045 #### [employer] [address] [place] [address] Urea nitrogen/Creatinine [Mass ratio] 14.3 ratio Normal 5.4-30.0 [facility] Comment on above: Performed By: #### 2 895017 #### [employer] [address] [place] [address] eGFRon 12-31-2018 GFR/1.73 sq M predicted among non-blacks MDRD (S/P/Bld) [Vol rate/Area] mL/min/{1.73_m2} Normal [facility] Comment on above: Order Comment: Order added by Discern Expert. Performed By: #### 1 [id number] #### [employer] [address] [place] [address] CMPon 07-03-2018 Albumin [Mass/Vol] 4.1 g/dL Normal 3.4-5.0 [facility] Comment on above: Performed By: #### 2 083580 #### [employer] [address] [place] [address] Albumin/Globulin [Mass ratio] 1.4 {ratio} Normal 1.1-1.9 [facility] Comment on above: Performed By: #### 2 547322 #### [employer] [address] [place] [address] Alk Phos 96 Int._Unit/L Normal 33-136 [facility] Comment on above: Performed By: #### 2 376169 #### [employer] [address] [place] [address] ALT [Catalytic activity/Vol] 14 Int._Unit/L Normal 10-52 [facility] Comment on above: Performed By: #### 2 359718 #### [employer] [address] [place] [address] Anion gap [Moles/Vol] 9 mmol/L Low 10-20 [facility] Comment on above: Performed By: #### 2 170582 #### [employer] [address] [place] [address] AST [Catalytic activity/Vol] 19 Int._Unit/L Normal 9-39 [facility] Comment on above: Performed By: #### 2 297448 #### [employer] [address] [place] [address] Bili Total 0.68 mg/dL Normal 0.00-1.20 [facility] Comment on above: Performed By: #### 2 196960 #### [employer] [address] [place] [address] Calcium [Mass/Vol] 9.4 mg/dL Normal 8.6-10.3 [facility] Comment on above: Performed By: #### 2 948659 #### [employer] [address] [place] [address] Chloride [Moles/Vol] 107 mmol/L Normal 98-107 [facility] Comment on above: Performed By: #### 2 673929 #### [employer] [address] [place] [address] CO2 [Moles/Vol] 26.0 mmol/L Normal 21.0-32.0 [facility] Comment on above: Performed By: #### 2 462639 #### [employer] [address] [place] [address] Creatinine [Mass/Vol] 0.8 mg/dL Normal 0.5-1.3 [facility] Comment on above: Performed By: #### 2 529197 #### [employer] [address] [place] [address] Globulin (S) [Mass/Vol] 3.0 g/dL Normal 2.0-4.0 [facility] Comment on above: Performed By: #### 2 328085 #### [employer] [address] [place] [address] Glucose [Mass/Vol] 112 mg/dL High 70-99 [facility] Comment on above: Performed By: #### 2 196857 #### [employer] [address] [place] [address] Potassium [Moles/Vol] 3.8 mmol/L Normal 3.5-5.3 [facility] Comment on above: Performed By: #### 2 636343 #### [employer] [address] [place] [address] Protein [Mass/Vol] 7.0 g/dL Normal 6.4-8.2 [facility] Comment on above: Performed By: #### 2 833095 #### [employer] [address] [place] [address] Sodium [Moles/Vol] 138 mmol/L Normal 136-145 [facility] Comment on above: Performed By: #### 2 043354 #### [employer] [address] [place] [address] Urea nitrogen [Mass/Vol] 13 mg/dL Normal 6-23 [facility] Comment on above: Performed By: #### 2 461471 #### [employer] [address] [place] [address] Urea nitrogen/Creatinine [Mass ratio] 16.2 ratio Normal 5.4-30.0 [facility] Comment on above: Performed By: #### 2 635279 #### [employer] [address] [place] [address] Lipid Profileon 07-03-2018 Cholesterol [Mass/Vol] 128 mg/dL Normal 0-199 [facility] Comment on above: Result Comment: TOTA L CHOLEESTEROL: <200 NORMAL 200 - 239 BORDERLINE HIGH >240 HIGH Performed By: #### 3 [id number] #### [employer] [address] [place] [address] Cholesterol in HDL [Mass/Vol] 52 mg/dL Normal 40-60 [facility] Comment on above: Performed By: #### 3 [id number] #### [employer] [address] [place] [address] Cholesterol in LDL [Mass/Vol] 61 mg/dL Normal 0-130 [facility] Comment on above: Result Comment: <100 OPTIMAL 100-129 NEAR / ABOVE OPTIMAL 130-159 BORDERLINE HIGH 160-189 HIGH >190 VERY HIGH CALC LDL NOT VALID WHEN TRIGLYCERIDE IS >400 MG/DL Performed By: #### 3 [id number] #### [employer] [address] [place] [address] Cholesterol in VLDL [Mass/Vol] 15 mg/dL Normal 0-40 [facility] Comment on above: Performed By: #### 3 [id number] #### [employer] [address] [place] [address] Triglyceride [Mass/Vol] 77 mg/dL Normal 0-149 [facility] Comment on above: Result Comment: AGE DESIRABLE BORDERLINE HIGH 91 D - 9 Y 0 - 74 75 - 99 > 100 10 - 19 Y 0 - 89 90 - 129 > 130 20 -24 Y 0 - 114 115 - 149 > 150 > 25 0 - 149 150 - 199 200 - 499 Performed By: #### 3 [id number] #### [employer] [address] [place] [address] eGFRon 07-03-2018 GFR/1.73 sq M predicted among non-blacks MDRD (S/P/Bld) [Vol rate/Area] mL/min/{1.73_m2} Normal [facility] Comment on above: Order Comment: Order added by Discern Expert. Performed By: #### 1 [id number] #### [facility] [place] [address] Hep Func Panelon 04-13-2018 Albumin [Mass/Vol] 4.1 g/dL Normal 3.2-5.0 [facility] Comment on above: Performed By: #### 2 026262 #### [place] [place] [address] Albumin/Globulin [Mass ratio] 1.4 {ratio} Normal 1.1-1.9 [facility] Comment on above: Performed By: #### 2 835390 #### [employer] [address] [place] [address] Alk Phos 80 Int._Unit/L Normal 42-121 [facility] Comment on above: Performed By: #### 2 259922 #### [employer] [address] [address] ALT [Catalytic activity/Vol] 14 Int._Unit/L Normal 10-40 [facility] Comment on above: Performed By: #### 2 273627 #### [employer] [facility] [place] [address] AST [Catalytic activity/Vol] 21 Int._Unit/L Normal 10-42 [facility] Comment on above: Performed By: #### 2 873083 #### MANDEEP [address] [address] Bili Direct <.10 Normal .00-.20 [facility] Comment on above: Performed By: #### 2 206293 #### [place] [address] [place] [address] Bili Indirect >0.5 Normal [facility] Comment on above: Result Comment: No e stablished ranges available for the Indirect Biliruben. Performed By: #### 2 612651 #### [place] [address] [place] [address] Bili Total 0.6 mg/dL Normal 0.2-1.0 [facility] Comment on above: Performed By: #### 2 066141 #### [employer] [address] [place] [address] Globulin (S) [Mass/Vol] 3.0 g/dL Normal 2.0-4.0 [facility] Comment on above: Performed By: #### 2 925834 #### [employer] [address] [place] [address] Protein [Mass/Vol] 7.1 g/dL Normal 6.4-8.3 [facility] Comment on above: Performed By: #### 2 025038 #### [employer] [employer] [address] [place] [address] NM Myocardial Spect Multi Re st/Stresson 03-27-2018 NM Myocardial Spect Multi Rest/Stress Exam Date/Time: 03/27/2018 11:02 EDT Reason for Exam: HIGH CORONARY CALCIUM SCORE HTN TOURLAS ORD JOHANA Report STUDY: NM Myocardial Spect Multi Rest/Stress; 03/27/2018 11:02 am INDICATION: HIGH CORONARY CALCIUM SCORE HTN TOURLAS ORD JOHANA. COMPARISON: None. ACCESSION NUMBER(S): [id number] ORDERING CLINICIAN: Vipin Angel TECHNIQUE: DIVISION OF [...] 11:02 EDT Report Images were interpreted at [facility]. FINAL REPORT Dictated: 03/27/2018 11:17 am Jamarcus Clark MD Signed (Electronic Signature): 03/27/2018 11:17 am Signed by: Jamarcus Clark MD Technologist: [facility] Culture, urine Bacteria identified Cx Nom (U) Klebsiella oxytoca [facility] Work Phone: Vital Signs Date Time Vital Sign Value Performing Clinician Facility 12-20-2024 14:33-0400 Body temperature 98.6 [degF] Dr. La Woods MD Work Phone: [facility] 12-20-2024 14:33-0400 Diastolic blood pressure 91 mm[Hg] Dr. La Woods MD Work Phone: [facility] 12-20-2024 14:33-0400 Heart rate 68 /min Dr. La Woods MD Work Phone: [facility] 12-20-2024 14:33-0400 Respiratory rate 23 /min Dr. La Woods MD Work Phone: [facility] 12-20-2024 14:33-0400 SaO2% (BldA) [Mass fraction] 97 % Dr. La Woods MD Work Phone: [facility] 12-20-2024 14:33-0400 Systolic blood pressure 136 mm[Hg] Dr. La Woods MD Work Phone: [facility] 12-20-2024 11:43-0400 Body height 177.[address] La Woods MD Work Phone: [facility] 12-20-2024 11:43-0400 Body mass index (BMI) [Ratio] 38.4 kg/m2 Dr. La Woods MD Work Phone: [facility] 12-20-2024 11:43-0400 Body weight 121.[address] La Woods MD Work Phone: [facility] 12-17-2024 14:37-0400 Body height 177.[address] La Woods MD Work Phone: [facility] 12-17-2024 14:37-0400 Body mass index (BMI) [Ratio] 36.6 kg/m2 Dr. La Woods MD Work Phone: [facility] 12-17-2024 14:37-0400 Body temperature 96.9 [degF] Dr. La Woods MD Work Phone: [facility] 12-17-2024 14:37-0400 Body weight 115.[address] La Woods MD Work Phone: [facility] 12-17-2024 14:37-0400 Diastolic blood pressure 75 mm[Hg] Dr. La Woods MD Work Phone: [facility] 12-17-2024 14:37-0400 Heart rate 63 /min Dr. La Woods MD Work Phone: [facility] 12-17-2024 14:37-0400 Respiratory rate 18 /min Dr. La Woods MD Work Phone: [facility] 12-17-2024 14:37-0400 SaO2% (BldA) [Mass fraction] 98 % Dr. La Woods MD Work Phone: [facility] 12-17-2024 14:37-0400 Systolic blood pressure 122 mm[Hg] Dr. La Woods MD Work Phone: [facility] 09-11-2024 13:01-0500 Body temperature 97.9 [degF] Dr. La Woods MD Work Phone: [facility] 09-11-2024 13:01-0500 Diastolic blood pressure 60 mm[Hg] Dr. La Woods MD Work Phone: [facility] 09-11-2024 13:01-0500 Heart rate 66 /min Dr. La Woods MD Work Phone: [facility] 09-11-2024 13:01-0500 Respiratory rate 17 /min Dr. La Woods MD Work Phone: [facility] 09-11-2024 13:01-0500 SaO2% (BldA) [Mass fraction] 95 % Dr. La Woods MD Work Phone: [facility] 09-11-2024 13:01-0500 Systolic blood pressure 100 mm[Hg] Dr. La Woods MD Work Phone: [facility] 09-03-2024 08:27-0500 Body height 177.[address] La Woods MD Work Phone: [facility] 09-03-2024 08:27-0500 Body mass index (BMI) [Ratio] 36.6 kg/m2 Dr. La Woods MD Work Phone: [facility] 09-03-2024 08:27-0500 Body weight 115.[address] La Woods MD Work Phone: [facility] 08-26-2024 15:48-0500 Body mass index (BMI) [Ratio] 36.3 kg/m2 Dr. La Woods MD Work Phone: [facility] 08-26-2024 15:48-0500 Body weight 114.[address] La Woods MD Work Phone: [facility] 08-26-2024 15:48-0500 Diastolic blood pressure 68 mm[Hg] Dr. La Woods MD Work Phone: [facility] 08-26-2024 15:48-0500 Heart rate 69 /min Dr. La Woods MD Work Phone: [facility] 08-26-2024 15:48-0500 Respiratory rate 18 /min Dr. La Woods MD Work Phone: [facility] 08-26-2024 15:48-0500 Systolic blood pressure 101 mm[Hg] Dr. La Woods MD Work Phone: [facility] 08-18-2024 21:29-0500 Body temperature 97.7 [degF] Dr. aL Woods MD Work Phone: [facility] 08-18-2024 21:29-0500 Diastolic blood pressure 67 mm[Hg] Dr. La Woods MD Work Phone: [facility] 08-18-2024 21:29-0500 Heart rate 65 /min Dr. La Woods MD Work Phone: [facility] 08-18-2024 21:29-0500 Respiratory rate 18 /min Dr. La Woods MD Work Phone: [facility] 08-18-2024 21:29-0500 SaO2% (BldA) [Mass fraction] 100 % Dr. La Woods MD Work Phone: [facility] 08-18-2024 21:29-0500 Systolic blood pressure 115 mm[Hg] Dr. La Woods MD Work Phone: [facility] 08-18-2024 15:23-0500 Body mass index (BMI) [Ratio] 37.5 kg/m2 Dr. La Woods MD Work Phone: [facility] 08-18-2024 15:23-0500 Body weight 118.[address] La Woods MD Work Phone: [facility] 08-18-2024 14:13-0500 Body mass index (BMI) [Ratio] 36.4 kg/m2 Dr. La Woods MD Work Phone: [facility] 08-18-2024 14:13-0500 Body weight 115.[address] La Woods MD Work Phone: [facility] 08-18-2024 14:13-0500 Diastolic blood pressure 60 mm[Hg] Dr. La Woods MD Work Phone: [facility] 08-18-2024 14:13-0500 Heart rate 111 /min Dr. La Woods MD Work Phone: [facility] 08-18-2024 14:13-0500 SaO2% (BldA) [Mass fraction] 96 % Dr. La Woods MD Work Phone: [facility] 08-18-2024 14:13-0500 Systolic blood pressure 120 mm[Hg] Dr. La Woods MD Work Phone: [facility] 08-09-2024 14:07-0500 Body mass index (BMI) [Ratio] 36.3 kg/m2 Dr. La Woods MD Work Phone: [facility] 08-09-2024 14:07-0500 Body temperature 98.2 [degF] Dr. La Woods MD Work Phone: [facility] 08-09-2024 14:07-0500 Body weight 114.[address] La Woods MD Work Phone: [facility] 08-09-2024 14:07-0500 Diastolic blood pressure 59 mm[Hg] Dr. La Woods MD Work Phone: [facility] 08-09-2024 14:07-0500 Heart rate 64 /min Dr. La Woods MD Work Phone: [facility] 08-09-2024 14:07-0500 Respiratory rate 16 /min Dr. La Woods MD Work Phone: [facility] 08-09-2024 14:07-0500 SaO2% (BldA) [Mass fraction] 96 % Dr. La Woods MD Work Phone: [facility] 08-09-2024 14:07-0500 Systolic blood pressure 94 mm[Hg] Dr. La Woods MD Work Phone: [facility] 08-03-2024 12:10-0500 Body temperature 98 [degF] Dr. La Woods MD Work Phone: [facility] 08-03-2024 12:10-0500 Diastolic blood pressure 64 mm[Hg] Dr. La Woods MD Work Phone: [facility] 08-03-2024 12:10-0500 Heart rate 56 /min Dr. La Woods MD Work Phone: [facility] 08-03-2024 12:10-0500 Respiratory rate 16 /min Dr. La Woods MD Work Phone: [facility] 08-03-2024 12:10-0500 SaO2% (BldA) [Mass fraction] 98 % Dr. La Woods MD Work Phone: [facility] 08-03-2024 12:10-0500 Systolic blood pressure 108 mm[Hg] Dr. La Woods MD Work Phone: [facility] 08-03-2024 04:54-0500 Body mass index (BMI) [Ratio] 37.7 kg/m2 Dr. La Woods MD Work Phone: [facility] 08-03-2024 04:54-0500 Body weight 119.[address] La Woods MD Work Phone: [facility] 07-26-2024 13:37-0500 Body mass index (BMI) [Ratio] 36.7 kg/m2 Dr. La Woods MD Work Phone: [facility] 07-26-2024 13:37-0500 Body temperature 98.2 [degF] Dr. La Woods MD Work Phone: [facility] 07-26-2024 13:37-0500 Body weight 116.[address] La Woods MD Work Phone: [facility] 07-26-2024 13:37-0500 Diastolic blood pressure 67 mm[Hg] Dr. La Woods MD Work Phone: [facility] 07-26-2024 13:37-0500 Heart rate 61 /min Dr. La Woods MD Work Phone: [facility] 07-26-2024 13:37-0500 Respiratory rate 16 /min Dr. La Woods MD Work Phone: [facility] 07-26-2024 13:37-0500 SaO2% (BldA) [Mass fraction] 98 % Dr. La Woods MD Work Phone: [facility] 07-26-2024 13:37-0500 Systolic blood pressure 98 mm[Hg] Dr. La Woods MD Work Phone: [facility] 07-12-2024 10:56-0500 Body temperature 97.9 [degF] Dr. La Woods MD Work Phone: [facility] 07-12-2024 10:56-0500 Diastolic blood pressure 74 mm[Hg] Dr. La Woods MD Work Phone: [facility] 07-12-2024 10:56-0500 Heart rate 63 /min Dr. La Woods MD Work Phone: [facility] 07-12-2024 10:56-0500 Respiratory rate 12 /min Dr. La Woods MD Work Phone: [facility] 07-12-2024 10:56-0500 SaO2% (BldA) [Mass fraction] 100 % Dr. La Woods MD Work Phone: [facility] 07-12-2024 10:56-0500 Systolic blood pressure 122 mm[Hg] Dr. La Woods MD Work Phone: [facility] 06-14-2024 10:00-0500 Body mass index (BMI) [Ratio] 38.4 kg/m2 Dr. La Woods MD Work Phone: [facility] 06-14-2024 10:00-0500 Body weight 121.[address] La Woods MD Work Phone: [facility] 06-14-2024 10:00-0500 Diastolic blood pressure 75 mm[Hg] Dr. La Woods MD Work Phone: [facility] 06-14-2024 10:00-0500 Heart rate 58 /min Dr. La Woods MD Work Phone: [facility] 06-14-2024 10:00-0500 Respiratory rate 18 /min Dr. La Woods MD Work Phone: [facility] 06-14-2024 10:00-0500 Systolic blood pressure 113 mm[Hg] Dr. La Woods MD Work Phone: [facility] 10-04-2023 13:14-0400 Body temperature 97.8 [degF] Dr. La Woods Work Phone: [facility] 10-04-2023 13:14-0400 Diastolic blood pressure 76 mm[Hg] Dr. La Woods Work Phone: [facility] 10-04-2023 13:14-0400 Heart rate 91 /min Dr. La Woods Work Phone: [facility] 10-04-2023 13:14-0400 Respiratory rate 20 /min Dr. La Woods Work Phone: [facility] 10-04-2023 13:14-0400 SaO2% (BldA) [Mass fraction] 96 % Dr. La Woods Work Phone: [facility] 10-04-2023 13:14-0400 Systolic blood pressure 112 mm[Hg] Dr. La Woods Work Phone: [facility] 09-26-2023 15:39-0500 Body height 177.[address] La Woods Work Phone: [facility] 09-26-2023 15:39-0500 Body mass index (BMI) [Ratio] 39.2 kg/m2 Dr. La Woods Work Phone: [facility] 09-26-2023 15:39-0500 Body temperature 98.1 [degF] Dr. La Woods Work Phone: [facility] 09-26-2023 15:39-0500 Body weight 123.[address] La Woods Work Phone: [facility] 09-26-2023 15:39-0500 Diastolic blood pressure 73 mm[Hg] Dr. La Woods Work Phone: [facility] 09-26-2023 15:39-0500 Heart rate 65 /min Dr. La Woods Work Phone: [facility] 09-26-2023 15:39-0500 SaO2% (BldA) [Mass fraction] 97 % Dr. La Woods Work Phone: [facility] 09-26-2023 15:39-0500 Systolic blood pressure 126 mm[Hg] Dr. La Woods Work Phone: [facility] 09-25-2023 10:08-0500 Heart rate 81 /min Dr. La Woods Work Phone: [facility] 09-25-2023 10:05-0500 Body temperature 97.8 [degF] Dr. La Woods Work Phone: [facility] 09-25-2023 10:05-0500 Diastolic blood pressure 64 mm[Hg] Dr. La Woods Work Phone: [facility] 09-25-2023 10:05-0500 Respiratory rate 20 /min Dr. La Woods Work Phone: [facility] 09-25-2023 10:05-0500 SaO2% (BldA) [Mass fraction] 99 % Dr. La Woods Work Phone: [facility] 09-25-2023 10:05-0500 Systolic blood pressure 121 mm[Hg] Dr. La Woods Work Phone: [facility] 09-25-2023 05:02-0500 Body mass index (BMI) [Ratio] 39.3 kg/m2 Dr. La Woods Work Phone: [facility] 09-25-2023 05:02-0500 Body weight 124.[address] La Woods Work Phone: [facility] 09-24-2023 11:14-0500 Body height 177.[address] La Woods Work Phone: [facility] 07-03-2023 09:55-0500 Body mass index (BMI) [Ratio] 40.1 kg/m2 Dr. La Woods Work Phone: [facility] 07-03-2023 09:55-0500 Body weight [address] La Woods Work Phone: [facility] 07-03-2023 09:55-0500 Diastolic blood pressure 70 mm[Hg] Dr. La Woods Work Phone: [facility] 07-03-2023 09:55-0500 Heart rate 48 /min Dr. La Woods Work Phone: [facility] 07-03-2023 09:55-0500 Respiratory rate 18 /min Dr. La Woods Work Phone: [facility] 07-03-2023 09:55-0500 Systolic blood pressure 113 mm[Hg] Dr. La Woods Work Phone: [facility] 06-04-2023 13:12-0500 Body mass index (BMI) [Ratio] 41.3 kg/m2 Dr. La Woods Work Phone: [facility] 06-04-2023 13:12-0500 Body temperature 98 [degF] Dr. La Woods Work Phone: [facility] 06-04-2023 13:12-0500 Body weight 130.[address] La Woods Work Phone: [facility] 06-04-2023 13:12-0500 Diastolic blood pressure 72 mm[Hg] Dr. La Woods Work Phone: [facility] 06-04-2023 13:12-0500 Heart rate 68 /min Dr. La Woods Work Phone: [facility] 06-04-2023 13:12-0500 Respiratory rate 18 /min Dr. La Woods Work Phone: [facility] 06-04-2023 13:12-0500 SaO2% (BldA) [Mass fraction] 96 % Dr. La Woods Work Phone: [facility] 06-04-2023 13:12-0500 Systolic blood pressure 114 mm[Hg] Dr. La Woods Work Phone: [facility] 04-29-2023 11:05-0400 Body height 177.[address] La Woods Work Phone: [facility] 04-29-2023 11:05-0400 Body mass index (BMI) [Ratio] 40.8 kg/m2 Dr. La Woods Work Phone: [facility] 04-29-2023 11:05-0400 Body weight 129.[address] La Woods Work Phone: [facility] 04-29-2023 11:05-0400 Diastolic blood pressure 71 mm[Hg] Dr. La Woods Work Phone: [facility] 04-29-2023 11:05-0400 Heart rate 61 /min Dr. La Woods Work Phone: [facility] 04-29-2023 11:05-0400 Respiratory rate 20 /min Dr. La Woods Work Phone: [facility] 04-29-2023 11:05-0400 Systolic blood pressure 121 mm[Hg] Dr. La Woods Work Phone: [facility] 02-25-2023 07:25-0400 Body temperature 97.2 [degF] Dr. La Woods Work Phone: [facility] 02-25-2023 07:25-0400 Diastolic blood pressure 67 mm[Hg] Dr. La Woods Work Phone: [facility] 02-25-2023 07:25-0400 Heart rate 66 /min Dr. La Woods Work Phone: [facility] 02-25-2023 07:25-0400 Respiratory rate 18 /min Dr. La Woods Work Phone: [facility] 02-25-2023 07:25-0400 SaO2% (BldA) [Mass fraction] 97 % Dr. La Woods Work Phone: [facility] 02-25-2023 07:25-0400 Systolic blood pressure 111 mm[Hg] Dr. La Woods Work Phone: [facility] 02-25-2023 05:51-0400 Body height 177.[address] La Woods Work Phone: [facility] 02-25-2023 05:51-0400 Body mass index (BMI) [Ratio] 40.1 kg/m2 Dr. La Woods Work Phone: [facility] 02-25-2023 05:51-0400 Body weight 126.[address] La Woods Work Phone: [facility] 02-03-2023 13:08-0400 Diastolic blood pressure 73 mm[Hg] Dr. La Woods Work Phone: [facility] 02-03-2023 13:08-0400 Heart rate 65 /min Dr. La Woods Work Phone: [facility] 02-03-2023 13:08-0400 Respiratory rate 17 /min Dr. La Woods Work Phone: [facility] 02-03-2023 13:08-0400 SaO2% (BldA) [Mass fraction] 97 % Dr. La Woods Work Phone: [facility] 02-03-2023 13:08-0400 Systolic blood pressure 110 mm[Hg] Dr. La Woods Work Phone: [facility] 12-02-2022 12:59-0400 Body mass index (BMI) [Ratio] 40.7 kg/m2 Dr. La Woods Work Phone: [facility] 12-02-2022 12:59-0400 Body temperature 98 [degF] Dr. La Woods Work Phone: [facility] 12-02-2022 12:59-0400 Body weight 128.[address] La Woods Work Phone: [facility] 12-02-2022 12:59-0400 Diastolic blood pressure 72 mm[Hg] Dr. La Woods Work Phone: [facility] 12-02-2022 12:59-0400 Heart rate 65 /min Dr. La Woods Work Phone: [facility] 12-02-2022 12:59-0400 Respiratory rate 20 /min Dr. La Woods Work Phone: [facility] 12-02-2022 12:59-0400 SaO2% (BldA) [Mass fraction] 96 % Dr. La Woods Work Phone: [facility] 12-02-2022 12:59-0400 Systolic blood pressure 119 mm[Hg] Dr. La Woods Work Phone: [facility] 10-31-2022 10:48-0400 Body mass index (BMI) [Ratio] 40.1 kg/m2 Dr. La Woods Work Phone: [facility] 10-31-2022 10:48-0400 Body weight [address] La Woods Work Phone: [facility] 10-31-2022 10:48-0400 Diastolic blood pressure 65 mm[Hg] Dr. La Woods Work Phone: [facility] 10-31-2022 10:48-0400 Heart rate 66 /min Dr. La Woods Work Phone: [facility] 10-31-2022 10:48-0400 Respiratory rate 18 /min Dr. La Woods Work Phone: [facility] 10-31-2022 10:48-0400 Systolic blood pressure 108 mm[Hg] Dr. La Woods Work Phone: [facility] 06-06-2022 10:49-0500 Body height 175.[address] La Woods Work Phone: [facility] Work Phone: 06-06-2022 10:49-0500 Body mass index (BMI) [Ratio] 42.2 kg/m2 Dr. La Woods Work Phone: [facility] Work Phone: 06-06-2022 10:49-0500 Body weight 129.[address] La Woods Work Phone: [facility] Work Phone: 06-06-2022 10:49-0500 Diastolic blood pressure 67 mm[Hg] Dr. La Woods Work Phone: [facility] Work Phone: 06-06-2022 10:49-0500 Heart rate 58 /min Dr. La Woods Work Phone: [facility] Work Phone: 06-06-2022 10:49-0500 Respiratory rate 20 /min Dr. La Woods Work Phone: [facility] Work Phone: 06-06-2022 10:49-0500 Systolic blood pressure 104 mm[Hg] Dr. La Woods Work Phone: [facility] Work Phone: 06-03-2022 13:10-0500 Body temperature 97.9 [degF] Dr. La Woods Work Phone: [facility] Work Phone: 06-03-2022 13:10-0500 Body weight 130.[address] La Woods Work Phone: [facility] Work Phone: 06-03-2022 13:10-0500 Diastolic blood pressure 88 mm[Hg] Dr. La Woods Work Phone: [facility] Work Phone: 06-03-2022 13:10-0500 Heart rate 59 /min Dr. La Woods Work Phone: [facility] Work Phone: 06-03-2022 13:10-0500 Respiratory rate 16 /min Dr. La Woods Work Phone: [facility] Work Phone: 06-03-2022 13:10-0500 SaO2% (BldA) [Mass fraction] 96 % Dr. La Woods Work Phone: [facility] Work Phone: 06-03-2022 13:10-0500 Systolic blood pressure 142 mm[Hg] Dr. La Woods Work Phone: [facility] Work Phone: 01-29-2022 09:49-0400 Body temperature 96.7 [degF] Dr. Chuck Paulino Work Phone: [facility] Work Phone: 01-29-2022 09:49-0400 Diastolic blood pressure 80 mm[Hg] Dr. Chuck Paulino Work Phone: [facility] Work Phone: 01-29-2022 09:49-0400 Heart rate 62 /min Dr. Chuck Paulino Work Phone: [facility] Work Phone: 01-29-2022 09:49-0400 Respiratory rate 16 /min Dr. Chuck Paulino Work Phone: [facility] Work Phone: 01-29-2022 09:49-0400 SaO2% (BldA) [Mass fraction] 100 % Dr. Chuck Paulino Work Phone: [facility] Work Phone: 01-29-2022 09:49-0400 Systolic blood pressure 121 mm[Hg] Dr. Chuck Paulino Work Phone: [facility] Work Phone: 01-29-2022 08:05-0400 Body height 175.[address] Chuck Paulnio Work Phone: [facility] Work Phone: 01-29-2022 08:05-0400 Body mass index (BMI) [Ratio] 39.9 kg/m2 Dr. Chuck Paulino Work Phone: [facility] Work Phone: 01-29-2022 08:05-0400 Body weight 122.[address] Chuck Paulino Work Phone: [facility] Work Phone: 01-27-2022 13:30-0400 Body temperature 97.3 [degF] Dr. Chuck Paulino Work Phone: [facility] Work Phone: 01-27-2022 13:30-0400 Diastolic blood pressure 72 mm[Hg] Dr. Chuck Paulino Work Phone: [facility] Work Phone: 01-27-2022 13:30-0400 Heart rate 81 /min Dr. Chuck Paulino Work Phone: [facility] Work Phone: 01-27-2022 13:30-0400 Respiratory rate 20 /min Dr. Chuck Paulino Work Phone: [facility] Work Phone: 01-27-2022 13:30-0400 SaO2% (BldA) [Mass fraction] 99 % Dr. Chuck Paulino Work Phone: [facility] Work Phone: 01-27-2022 13:30-0400 Systolic blood pressure 118 mm[Hg] Dr. Chuck Paulino Work Phone: [facility] Work Phone: 01-25-2022 12:58-0400 Body height 175.[address] Chuck Paulino Work Phone: [facility] Work Phone: 01-25-2022 12:58-0400 Body mass index (BMI) [Ratio] 40.3 kg/m2 Dr. Chuck Paulino Work Phone: [facility] Work Phone: 01-25-2022 12:58-0400 Body temperature 97.8 [degF] Dr. Chuck Paulino Work Phone: [facility] Work Phone: 01-25-2022 12:58-0400 Body weight 123.[address] Chuck Paulino Work Phone: [facility] Work Phone: 01-25-2022 12:58-0400 Diastolic blood pressure 72 mm[Hg] Dr. Chuck Paulino Work Phone: [facility] Work Phone: 01-25-2022 12:58-0400 Heart rate 74 /min Dr. Chuck Paulino Work Phone: [facility] Work Phone: 01-25-2022 12:58-0400 Respiratory rate 18 /min Dr. Chuck Paulino Work Phone: [facility] Work Phone: 01-25-2022 12:58-0400 SaO2% (BldA) [Mass fraction] 99 % Dr. Chuck Paulino Work Phone: [facility] Work Phone: 01-25-2022 12:58-0400 Systolic blood pressure 114 mm[Hg] Dr. Chuck Paulino Work Phone: [facility] Work Phone: 01-07-2022 13:27-0400 Body mass index (BMI) [Ratio] 39.2 kg/m2 Dr. Chuck Paulino Work Phone: [facility] Work Phone: 01-07-2022 13:27-0400 Body temperature 97.4 [degF] Dr. Chuck Paulino Work Phone: [facility] Work Phone: 01-07-2022 13:27-0400 Body weight 124.[address] Chuck Paulino Work Phone: [facility] Work Phone: 01-07-2022 13:27-0400 Diastolic blood pressure 74 mm[Hg] Dr. Chuck Paulino Work Phone: [facility] Work Phone: 01-07-2022 13:27-0400 Heart rate 59 /min Dr. Chuck Paulino Work Phone: [facility] Work Phone: 01-07-2022 13:27-0400 Respiratory rate 17 /min Dr. Chuck Paulino Work Phone: [facility] Work Phone: 01-07-2022 13:27-0400 SaO2% (BldA) [Mass fraction] 100 % Dr. Chuck Paulino Work Phone: [facility] Work Phone: 01-07-2022 13:27-0400 Systolic blood pressure 105 mm[Hg] Dr. Chuck Paulino Work Phone: [facility] Work Phone: 01-04-2022 11:20-0400 Body mass index (BMI) [Ratio] 37.9 kg/m2 Dr. Chuck Paulino Work Phone: [facility] Work Phone: 01-04-2022 11:20-0400 Body weight 123.[address] Chuck Paulino Work Phone: [facility] Work Phone: 01-04-2022 11:20-0400 Diastolic blood pressure 59 mm[Hg] Dr. Chuck Paulino Work Phone: [facility] Work Phone: 01-04-2022 11:20-0400 Heart rate 55 /min Dr. Chuck Paulino Work Phone: [facility] Work Phone: 01-04-2022 11:20-0400 Respiratory rate 16 /min Dr. Chuck Paulino Work Phone: [facility] Work Phone: 01-04-2022 11:20-0400 Systolic blood pressure 108 mm[Hg] Dr. Chuck Paulino Work Phone: [facility] Work Phone: 11-29-2021 13:16-0400 Body mass index (BMI) [Ratio] 37.2 kg/m2 Dr. Chuck Paulino Work Phone: [facility] Work Phone: 11-29-2021 13:16-0400 Body temperature 97.9 [degF] Dr. Chuck Paulino Work Phone: [facility] Work Phone: 11-29-2021 13:16-0400 Body weight 121.[address] Chuck Paulino Work Phone: [facility] Work Phone: 11-29-2021 13:16-0400 Diastolic blood pressure 78 mm[Hg] Dr. Chuck Paulino Work Phone: [facility] Work Phone: 11-29-2021 13:16-0400 Heart rate 68 /min Dr. Chuck Paulino Work Phone: [facility] Work Phone: 11-29-2021 13:16-0400 Respiratory rate 14 /min Dr. Chuck Paulino Work Phone: [facility] Work Phone: 11-29-2021 13:16-0400 SaO2% (BldA) [Mass fraction] 99 % Dr. Chuck Paulino Work Phone: [facility] Work Phone: 11-29-2021 13:16-0400 Systolic blood pressure 112 mm[Hg] Dr. Chuck Paulino Work Phone: [facility] Work Phone: 10-02-2021 11:32-0400 Body mass index (BMI) [Ratio] 37.2 kg/m2 Dr. Chuck Paulino Work Phone: [facility] Work Phone: 10-02-2021 11:32-0400 Body weight 121.[address] Chuck Paulino Work Phone: [facility] Work Phone: 10-02-2021 11:32-0400 Diastolic blood pressure 61 mm[Hg] Dr. Chuck Paulino Work Phone: [facility] Work Phone: 10-02-2021 11:32-0400 Heart rate 70 /min Dr. Chuck Paulino Work Phone: [facility] Work Phone: 10-02-2021 11:32-0400 Respiratory rate 18 /min Dr. Chuck Paulino Work Phone: [facility] Work Phone: 10-02-2021 11:32-0400 Systolic blood pressure 105 mm[Hg] Dr. Chuck Paulino Work Phone: [facility] Work Phone: 10-02-2021 11:32-0400 Body height 180.[address] Chuck Paulino Work Phone: [facility] Work Phone: 10-02-2021 11:32-0400 Body mass index (BMI) [Ratio] 37.2 kg/m2 Dr. Chuck Paulino Work Phone: [facility] Work Phone: 10-02-2021 11:32-0400 Body weight 121.[address] Chuck Paulino Work Phone: [facility] Work Phone: 10-02-2021 11:32-0400 Diastolic blood pressure 61 mm[Hg] Dr. Chuck Paulino Work Phone: [facility] Work Phone: 10-02-2021 11:32-0400 Heart rate 70 /min Dr. Chuck Paulino Work Phone: [facility] Work Phone: 10-02-2021 11:32-0400 Respiratory rate 18 /min Dr. Chuck Paulino Work Phone: [facility] Work Phone: 10-02-2021 11:32-0400 Systolic blood pressure 105 mm[Hg] Dr. Chuck Paulino Work Phone: [facility] Work Phone: 01-16-2021 16:04-0400 Body height 177.8 cm Chuck Paulino Work Phone: [facility] Work Phone: 01-16-2021 16:04-0400 Body mass index (BMI) [Ratio] 38.65 kg/m2 Chuck Tylerer Work Phone: [facility] Work Phone: 01-16-2021 16:04-0400 Body surface area Derived from formula 2.37 m2 Chuck Tylerer Work Phone: [facility] Work Phone: 01-16-2021 16:04-0400 Body temperature 98 [degF] Chuck Tylerer Work Phone: [facility] Work Phone: 01-16-2021 16:04-0400 Body weight 122.19 kg Chuck Paulino Work Phone: [facility] Work Phone: 01-16-2021 16:04-0400 Diastolic blood pressure 60 mm[Hg] Chuck Paulino Work Phone: [facility] Work Phone: 01-16-2021 16:04-0400 Heart rate 68 /min Chuck Paulino Work Phone: [facility] Work Phone: 01-16-2021 16:04-0400 Systolic blood pressure 120 mm[Hg] Chuck O Paulino Work Phone: [facility] Work Phone: 03-02-2020 10:33-0400 BMI (Body Mass Index) 40.18 kg/m2 Chuck Paulino [facility] Work Phone: 03-02-2020 10:33-0400 Body Temperature 97 [degF] [facility] Work Phone: 03-02-2020 10:33-0400 Body weight 127 kg Chuck Paulino [facility] Work Phone: 03-02-2020 10:33-0400 BP Diastolic 80 mm[Hg] Chuck Paulino [facility] Work Phone: Comment on above: Location: [place]; 03-02-2020 10:33-0400 BP Systolic 128 mm[Hg] Chuck Paulino [facility] Work Phone: Comment on above: Location: [place]; 03-02-2020 10:33-0400 BSA (Body Surface Area) 2.41 m2 Chuck Paulino [facility] Work Phone: 03-02-2020 10:33-0400 Height 177.8 cm [facility] Work Phone: 03-02-2020 10:33-0400 Pulse (Heart Rate) 68 /min Chuck [facility] Work Phone: Encounters Encounter Date Encounter Type Care Provider Facility Start: 12-27-2024 ambulatory Kim Livingston [employer] Fac ility:[facility] Start: 12-21-2024 ambulatory La Woods Facility :[facility] Start: 12-20-2024 ambulatory Lucero Acevedo Facility:[facility] Start: 12-20-2024 Evaluation and management of inpatient Lucero Acevedo Facility:[facility] Start: 12-20-2024 Evaluation and management of inpatient Dr. Lucero Acevedo DO -Progressive Care Unit Work Phone: Start: 12-20-2024 ambulatory Lucero Acevedo Facility:[facility] Start: 12-17-2024 End: 12-17-2024 Patient encounter procedure Kim PRUITTC -[facility] Work Phone: Start: 12-17-2024 End: 12-17-[address] La Woods MD Work Phone: [facility] Work Phone: Start: 12-01-2024 End: 12-01-[address] Jose Juan Gill DO -[facility] Work Phone: Start: 12-01-2024 End: 12-01-2024 Dr. Jose Juan Gill DO -[facility] Work Phone: Start: 12-01-2024 End: 12-01-[address] La Woods MD Work Phone: [facility] Work Phone: Start: 11-11-2024 End: 11-11-2024 ambulatory Liv Anderson Facility:[facility] Start: 11-11-2024 End: 11-11-2024 Non-patient / Non-visit Dr. Liv Anderson MD -[facility] Work Phone: Start: 11-11-2024 End: 11-11-2024 Dr. Liv Anderson MD -[facility] Work Phone: Start: 11-04-2024 ambulatory La Woods Facility :[facility] Start: 10-28-2024 End: 10-28-[address] La Woods MD Work Phone: [facility] Work Phone: Start: 10-28-2024 End: 10-28-[address] James Murrieta MD -Laboratory [facility] Work Phone: Start: 10-28-2024 End: 10-28-2024 Dr. James Murrieta MD -Laboratory, Spec[facility] Work Phone: Start: 10-28-2024 End: 10-28-2024 ambulatory James Murrieta Facility:[facility] Start: 10-18-2024 End: 10-18-[address] La Woods MD -Laboratory [facility] Work Phone: Start: 10-18-2024 End: 10-18-2024 Dr. La Woods MD -Laboratory, Speci men Work Phone: Start: 10-18-2024 End: 10-18-2024 ambulatory La Chuck Facility:[facility] Start: 10-11-2024 End: 10-11-[address] La Woods MD Work Phone: [facility] Work Phone: Start: 10-11-2024 End: 10-11-2024 Patient encounter procedure Colette Cardenas PA -Laboratory [facility] Start: 10-11-2024 End: 10-11-2024 Colette LEMUS -Laboratory, [facility] Start: 10-11-2024 End: 10-11-2024 ambulatory Colette LEMUS Facility:[facility] Start: 10-07-2024 End: 10-07-[address] La Woods MD Work Phone: [facility] Work Phone: Start: 10-07-2024 End: 10-07-[address] La Woods MD -Laboratory [facility] Work Phone: Start: 10-07-2024 End: 10-07-2024 Dr. La Woods MD -Laboratory, Speci men Work Phone: Start: 10-07-2024 End: 10-07-2024 ambulatory La Woods Facility:[facility] Start: 09-28-2024 End: 09-28-[address] La Woods MD Work Phone: [facility] Work Phone: Start: 09-28-2024 End: 09-28-2024 Patient encounter procedure Robby Peralta [employer]-C -Laboratory [facility] Start: 09-28-2024 End: 09-28-2024 Robby Peralta [employer]-C -Laboratory, [facility] Start: 09-28-2024 End: 09-28-2024 ambulatory Robby Peralta [employer] Facility:[facility] Start: 09-15-2024 End: 09-15-[address] La Woods MD Work Phone: [facility] Work Phone: Start: 09-15-2024 End: 09-15-2024 Patient encounter procedure Robby Peralta [employer]-C -Laboratory [facility] Start: 09-15-2024 End: 09-15-2024 Robby Peralta [employer]-C -Laboratory, [facility] Start: 09-15-2024 End: 09-15-2024 ambulatory Robby Peralta [employer] Facility:[facility] Start: 09-13-2024 End: 09-13-2024 Patient encounter procedure Sydnie Bernardino [employer]-C -Laboratory [facility] Work Phone: Start: 09-13-2024 End: 09-13-2024 Sydnie Calvin [employer]-C -Laboratory, Speci men Work Phone: Start: 09-13-2024 End: 09-13-2024 ambulatory Sydnie Lebron Facility:[facility] Start: 09-11-2024 End: 09-11-2024 Patient encounter procedure Sydnie Lebron [employer]-[facility] Work Phone: Start: 09-11-2024 End: 09-11-2024 Sydniecasimiro Cortesen [employer]-C -[facility] Work Phone: Start: 09-11-2024 End: 09-11-2024 ambulatory Sydnie Lebron Facility:[facility] Start: 09-06-2024 End: 09-06-[address] La Woods MD -[facility] Work Phone: Start: 09-06-2024 End: 09-06-2024 Dr. La Woods MD -[facility] Work Phone: Start: 09-06-2024 End: 09-06-2024 ambulatory La Woods Facility:[facility] Start: 08-26-2024 End: 08-26-2024 Patient encounter procedure Robby Pollack Fabian [employer]-C -[facility] Work Phone: Start: 08-26-2024 End: 08-26-2024 Robby Pollack Fabian [employer]-C -[facility] Work Phone: Start: 08-26-2024 End: 08-26-2024 ambulatory Robby Pollack Fabian [employer] Facility:[facility] Start: 08-18-2024 End: 08-18-2024 Dr. Valente Coleman DO -Emergency Departme nt Work Phone: Start: 08-18-2024 End: 08-18-2024 Emergency department patient visit Valente Coleman Facility:[facility] Start: 08-18-2024 End: 08-18-2024 Brenden LEMUS -[facility] Work Phone: Start: 08-18-2024 End: 08-18-2024 ambulatory Brenden LEMUS Facility:[facility] Start: 08-13-2024 End: 08-13-2024 Dr. Jose Juan Gill DO -[facility] Work Phone: Start: 08-13-2024 End: 08-13-2024 ambulatory Jose Juan Gill Facility:[facility] Start: 08-09-2024 End: 08-09-2024 Dr. La Woods MD -Laboratory, [place] Start: 08-09-2024 End: 08-09-2024 Dr. La Woods MD -[facility] Work Phone: Start: 08-09-2024 End: 08-09-2024 ambulatory La Woods Facility:[facility] Start: 08-09-2024 End: 08-09-2024 ambulatory La Woods Facility:[facility] Start: 08-05-2024 ambulatory La Woods Facility :[facility] Start: 08-03-2024 Dr. Robbie Lowry MD -[facility] Work Phone: Start: 08-02-2024 ambulatory Jose Juan Gill Facility :[facility] Start: 08-02-2024 Dr. Robbie Lowry MD -[facility] In[facility] Phys[facility] Work Phone: Start: 08-01-2024 Dr. Yayo Esquivel MD -[facility] Work Phone: Start: 07-31-2024 ambulatory Fabio Garcia Facility:[facility] Start: 07-31-2024 Dr. Fabio Garcia MD -[facility] Start: 07-31-2024 Dr. Yayo Esquivel MD -[facility] Work Phone: Start: 07-30-2024 ambulatory Olivia Rae Meza Facility :[facility] Start: 07-30-2024 End: 08-03-2024 Evaluation and management of inpatient Robbie Lowry Facility:[facility] Start: 07-30-2024 End: 08-03-2024 Dr. Robbie Lowry MD -[facility] Work Phone: Start: 07-26-2024 End: 07-26-2024 Dr. La Woods MD -[facility] Work Phone: Start: 07-26-2024 End: 07-26-2024 ambulatory La Woods Facility:[facility] Start: 07-23-2024 End: 07-23-2024 Dr. Jose Juan Gill DO -[facility] Work Phone: Start: 07-23-2024 End: 07-23-2024 ambulatory Jose Juan Gill Facility:[facility] Start: 07-13-2024 End: 07-13-2024 Emergency department patient visit LA WOODS [facility] Start: 07-12-2024 End: 07-12-2024 Brenden Henderson [place] -[facility] Work Phone: Start: 07-12-2024 End: 07-12-2024 ambulatory La Woods Facility:[facility] Start: 07-07-2024 End: 07-07-2024 Dr. Jose Juan Gill DO -[facility] Work Phone: Start: 07-07-2024 End: 07-07-2024 ambulatory Jose Juan Jairo Facility:[facility] Start: 06-14-2024 End: 06-14-2024 Robby Peralta [employer]-C -[facility] Work Phone: Start: 06-14-2024 End: 06-14-2024 ambulatory Robby Peralta [employer] Facility:[facility] Start: 06-03-2024 End: 06-03-2024 Robby Peralta [employer]-C -Laboratory Work Phone: Start: 06-03-2024 End: 06-03-2024 ambulatory Robby Peralta [employer] Facility:[facility] Start: 05-19-2024 End: 05-19-2024 Emergency department patient visit La Chuck Facility:[facility] Start: 05-14-2024 End: 05-14-2024 ambulatory Robby Peralta [employer] Facility:[facility] Start: 05-10-2024 End: 05-10-2024 ambulatory Jose Juan Underwood Facility:[facility] Start: 05-07-2024 End: 05-07-2024 ambulatory La Woods Facility:[facility] Start: 05-05-2024 End: 05-05-2024 ambulatory La Woods Facility:[facility] Start: 04-15-2024 End: 04-15-2024 ambulatory Layuliet Woods Facility:[facility] Start: 04-07-2024 End: 04-07-2024 Emergency department patient visit Monica Hayden Facility:[facility] Start: 03-17-2024 End: 03-17-2024 ambulatory Jose Juan Underwood Facility:[facility] Start: 01-02-2024 End: 01-02-2024 ambulatory La Woods Facility:[facility] Start: 01-02-2024 End: 01-02-2024 ambulatory La Woods Facility:[facility] Start: 01-01-2024 ambulatory Fabio Garcia Facility:[facility] Start: 12-26-2023 End: 12-26-2023 ambulatory Ricardo Sosa Facility:[facility] Start: 12-22-2023 End: 12-22-2023 Emergency department patient visit LA Victor [facility] Start: 12-22-2023 End: 12-22-2023 Emergency department patient visit HONEY PRATT [facility] Start: 12-22-2023 End: 12-22-2023 [facility] Start: 11-17-2023 End: 11-17-[address] La Woods Work Phone: [facility] Work Phone: Start: 11-17-2023 End: 11-17-[address] La [facility] Start: 11-04-2023 End: 11-04-[address] La Woods Work Phone: [facility] Work Phone: Start: 11-04-2023 End: 11-04-[address] La Woods [facility] Start: 10-29-2023 End: 10-29-[address] La Woods Work Phone: [facility] Work Phone: Start: 10-29-2023 End: 10-29-[address] La Woods Work Phone: [facility] Work Phone: Start: 10-20-2023 End: 10-20-[address] La Woods Work Phone: [facility] Work Phone: Start: 10-20-2023 End: 10-20-[address] La Woods [facility] Start: 10-20-2023 End: 10-20-[address] La Woods Work Phone: [facility] Work Phone: Start: 10-06-2023 End: 10-06-[address] La Woods Work Phone: [facility] Work Phone: Start: 10-06-2023 End: 10-06-[address] La Woods [facility] Work Phone: Start: 10-04-2023 End: 10-04-[address] La Woods Work Phone: [facility] Work Phone: Start: 10-02-2023 End: 10-02-[address] La Woods Work Phone: [facility] Work Phone: Start: 10-02-2023 End: 10-02-[address] La Woods Work Phone: [facility]-Laboratory Work Phone: Start: 09-29-2023 End: 09-29-[address] La Woods Work Phone: [facility] [place] Work Phone: Start: 09-25-2023 Non-patient / Non-visit Dr. La Woods Work Phone: [facility] Inpatient Physicians Work Phone: Start: 09-24-2023 Non-patient / Non-visit Dr. La Woods Work Phone: [facility] Start: 09-24-2023 Non-patient / Non-visit Dr. La Woods Work Phone: [facility] Inpatient Physicians Work Phone: Start: 09-23-2023 Non-patient / Non-visit Dr. La Woods Work Phone: [facility] Inpatient Physicians Work Phone: Start: 09-23-2023 End: 09-25-2023 Evaluation and management of inpatient Dr. La Woods Work Phone: [facility]-Progressive Care Unit Work Phone: Start: 07-03-2023 End: 07-03-[address] La Woods Work Phone: [facility] Work Phone: Start: 06-23-2023 End: 06-23-[address] La Woods Work Phone: [facility] Work Phone: Start: 06-04-2023 End: 06-04-[address] La Woods Work Phone: [facility] [place] Work Phone: Start: 05-21-2023 Non-patient / Non-visit Dr. La Woods Work Phone: [facility] Work Phone: Start: 05-20-2023 Non-patient / Non-visit Dr. La Woods Work Phone: [facility] Start: 05-20-2023 End: 05-20-[address] La Woods Work Phone: [facility] Work Phone: Start: 05-20-2023 End: 05-20-[address] La Woods Work Phone: [facility]-Cardiovascular Services Work Phone: Start: 05-08-2023 End: 05-08-[address] La Woods Work Phone: [facility] [place] Work Phone: Start: 04-29-2023 End: 04-29-[address] La Woods Work Phone: [facility] Work Phone: Start: 04-29-2023 End: 04-29-[address] La Woods Work Phone: [facility]-Radiology, [facility] Work Phone: Start: 04-29-2023 End: 04-29-[address] La Woods Work Phone: [facility] Work Phone: Start: 03-06-2023 End: 03-06-[address] La Woods Work Phone: [facility] Work Phone: Start: 02-25-2023 Non-patient / Non-visit Dr. La Woods Work Phone: [facility] Start: 02-25-2023 End: 02-25-2023 Admission to same day surgery center Dr. La Woods Work Phone: [facility]-Endoscopy Work Phone: Start: 02-25-2023 End: 02-25-[address] La Woods Work Phone: [facility] Work Phone: Start: 02-03-2023 End: 02-03-[address] La Woods Work Phone: [facility] Work Phone: Start: 12-02-2022 End: 12-02-[address] La Woods Work Phone: [facility] [place] Work Phone: Start: 11-20-2022 End: 11-20-[address] La Woods Work Phone: [facility] Work Phone: Start: 10-31-2022 End: 10-31-[address] La Woods Work Phone: [facility] Work Phone: Start: 06-06-2022 Non-patient / Non-visit Dr. La Woods Work Phone: [facility] Start: 06-06-2022 End: 06-06-[address] La Woods Work Phone: [facility] Start: 06-06-2022 End: 06-06-[address] La Woods Work Phone: [facility] Work Phone: Start: 06-06-2022 End: 06-06-[address] La Woods [facility] Start: 06-03-2022 End: 06-03-[address] La Woods Work Phone: [facility] [place] Start: 02-14-2022 End: 02-14-[address] Chuck Paulino Work Phone: [facility]-Laboratory, Specimen Start: 01-29-2022 Non-patient / Non-visit Dr. Chuck Paulino Work Phone: [facility] Start: 01-29-2022 End: 01-29-2022 Admission to same day surgery center Dr. Cuhck Paulino Work Phone: [facility]-Endoscopy Start: 01-27-2022 End: 01-27-[address] Chuck Paulino [facility] Start: 01-27-2022 End: 01-27-[address] Chuck Paulino Work Phone: [facility] Start: 01-25-2022 End: 01-25-[address] Chuck Paulino Work Phone: [facility] Start: 01-07-2022 End: 01-07-[address] Chuck Paulino Work Phone: [facility] Start: 01-04-2022 End: 01-04-[address] Chuck Paulino Work Phone: [facility] Start: 11-29-2021 End: 11-29-[address] Chuck Paulino Work Phone: [facility] Internal Medicine Start: 10-17-2021 End: 10-17-[address] Chuck Paul[facility] Start: 10-12-2021 Non-patient / Non-visit Dr. Chuck Paulino Work Phone: [facility] Start: 10-12-2021 End: 10-12-[address] Chuck Paulino Work Phone: [facility]-Cardiovascular Services Start: 10-02-2021 End: 10-02-[address] Chuck Paul[facility] Start: 10-02-2021 End: 10-02-[address] Chuck Paulino Work Phone: [facility] Start: 04-26-2021 Patient encounter procedure Chuck Paulino Work Phone: [facility] Work Phone: Start: 01-16-2021 Patient encounter procedure Chuck Paulino Work Phone: [facility] Work Phone: Start: 08-04-2020 End: 08-04-2020 Orders Only Cheri Dominique Work Phone: [facility] Start: 03-02-2020 Patient encounter procedure Chuck Paulino [facility] Work Phone: Start: 12-31-2019 Patient encounter procedure Chuck Paulino [facility] Work Phone: Start: 07-29-2019 Patient encounter procedure Chuck Paulino [facility] Work Phone: Start: 05-18-2019 Patient encounter procedure Chuck Paulino [facility] Work Phone: Start: 07-03-2018 Patient encounter procedure Facility:[id number] Start: 04-13-2018 Patient encounter procedure Facility:[id number] Start: 03-27-2018 Patient encounter procedure Facility:[id number] Start: 01-20-2018 Patient encounter procedure Facility:[id number] Start: 12-30-2017 Patient encounter procedure Facility:[id number] Patient encounter procedure Chuck Paulino Work Phone: [facility] Work Phone: Procedures Date Procedure Procedure Detail Performing Clinician Start: 12-20-2024 Urnls dip stick/tabl et reagent auto microscopy Dr. La Woods MD Work Phone: Start: 12-20-2024 CT of head without contrast Dr. La Woods MD Work Phone: Start: 12-20-2024 X-ray of chest, PA a nd lateral views Dr. La Woods MD Work Phone: Start: 12-20-[address] La Woods MD Work Phone: Start: 10-28-[address] La Woods MD Work Phone: Start: 10-18-[address] La Woods MD Work Phone: Start: 10-18-2024 Urine microscopy: red cells Dr. La Woods MD Work Phone: Start: 10-18-2024 Urnls dip stick/tabl et reagent auto microscopy Dr. La Woods MD Work Phone: Start: 10-07-[address] La Woods MD Work Phone: Start: 10-07-2024 Urine microscopy: red cells Dr. La Woods MD Work Phone: Start: 10-07-2024 Urnls dip stick/tabl et reagent auto microscopy Dr. La Woods MD Work Phone: Start: 09-13-[address] La Woods MD Work Phone: Start: 08-18-2024 Urine microscopy: red cells Dr. La Woods MD Work Phone: Start: 08-18-2024 Urnls dip stick/tabl et reagent auto microscopy Dr. La Woods MD Work Phone: Start: 08-18-2024 Plain chest X-ray Dr. Rae Woods MD Work Phone: Start: 08-18-2024 Anion gap measurement Magi Woods MD Work Phone: Start: 08-18-2024 Blood count smear mc rscp w/mnl difrntl wbc count Dr. La Woods MD Work Phone: Start: 08-18-2024 BUN/Creatinine ratio Dr Silas Woods MD Work Phone: Start: 08-18-[address] La Woods MD Work Phone: Start: 08-18-2024 Mean corpuscular hem oglobin concentration determination Dr. La Woods MD Work Phone: Start: 08-18-2024 Measurement of renal function Dr. La Woods MD Work Phone: Start: 08-18-2024 Nucleated red blood cell count procedure Dr. La Woods MD Work Phone: Start: 08-18-2024 Platelet mean volume determination Dr. La Woods MD Work Phone: Start: 08-18-[address] La Woods MD Work Phone: Start: 08-09-2024 Anion gap measurement Magi Woods MD Work Phone: Start: 08-09-2024 BUN/Creatinine ratio Dr Silas Woods MD Work Phone: Start: 08-09-2024 Measurement of renal function Dr. La Woods MD Work Phone: Start: 08-03-2024 Anion gap measurement Magi Woods MD Work Phone: Start: 08-03-2024 Blood count smear mc rscp w/mnl difrntl wbc count Dr. La Woods MD Work Phone: Start: 08-03-2024 BUN/Creatinine ratio Dr Silas Woods MD Work Phone: Start: 08-03-[address] La Woods MD Work Phone: Start: 08-03-2024 Mean corpuscular hem oglobin concentration determination Dr. La Woods MD Work Phone: Start: 08-03-2024 Measurement of renal function Dr. La Woods MD Work Phone: Start: 08-03-2024 Nucleated red blood cell count procedure Dr. La Woods MD Work Phone: Start: 08-03-2024 Platelet mean volume determination Dr. La Woods MD Work Phone: Start: 08-01-2024 Assay of phosphorus inorganic Dr. La Woods MD Work Phone: Start: 07-31-2024 MRI of brain without contrast Dr. La Woods MD Work Phone: Start: 07-31-2024 Legionella pneumophi la antigen assay Dr. La Woods MD Work Phone: Start: 07-31-[address] La Woods MD Work Phone: Start: 07-31-2024 End: 07-31-2024 Streptococcus pneumoniae antigen assay Dr. La Woods MD Work Phone: Start: 07-31-2024 Albumin/Globulin ratio Dr. La Woods MD Work Phone: Start: 07-31-[address] La Woods MD Work Phone: Start: 07-30-2024 CT angiography of he ad and neck Dr. La Woods MD Work Phone: Start: 07-30-2024 Urine microscopy: red cells Dr. La Woods MD Work Phone: Start: 07-30-2024 Urnls dip stick/tabl et reagent auto microscopy Dr. La Woods MD Work Phone: Start: 07-30-2024 CT of head without contrast Dr. La Woods MD Work Phone: Start: 07-30-2024 X-ray of chest, PA a nd lateral views Dr. La Woods MD Work Phone: Start: 07-30-[address] La Woods MD Work Phone: Start: 10-29-[address] Mercy Woods Work Phone: Start: 10-20-[address] La Woods Work Phone: Start: 10-06-[address] La Woods Work Phone: Start: 09-24-2023 Cardiovascular stres s test using pharmacologic stress agent Dr. La Woods Work Phone: Start: 09-23-2023 Plain chest X-ray Dr. Rae Woods Work Phone: Start: 09-23-2023 SARS-CoV-2, Influenz a & RSV (PCR) Dr. La Woods Work Phone: Start: 04-29-2023 Plain chest X-ray Dr. Rae Woods Work Phone: Start: 02-25-[address] La Woods Work Phone: Start: 11-20-2022 Radiologic examinati on of knee Dr. La Woods Work Phone: Start: 01-29-[address] Chuck Paulino Work Phone: Start: 10-12-2021 Cardiovascular stres s test using pharmacologic stress agent Dr. Chuck Paulino Work Phone: Start: 08-17-2020 History of placement of stent for coronary artery disease History of coronary artery stent placement [employer] Comment on above: PCI-KARIS-Mid RCA w/ 4 .0 x 24 mm Synergy Stent 08/17/2020 Start: 08-17-2020 Cardiac catheterization Chuck Paulino Work Phone: Start: 08-17-2020 Placement of stent i n coronary artery Chuck Paulino Work Phone: Comment on above: drug eludtng [employer]Bo [email or web address], Synergy stent 4.0mm x 24mm [id number]; Start: 05-31-2020 Echocardiography Start: 03-02-2020 Comprehensive metabo lic 2000 panel Chuck Paulino Start: 02-23-2014 Colonoscopy Chuck Libby omalleyamee Work Phone: Cataract surgery Chuck aj Colonic polypectomy Chuck rain End: 02-23-2014 Colonoscopy Chuck Paulino Testis excision Chuck Paulino Transurethral prostatectomy Chuck Paulino Urine culture Dr. Chuck chavez Work Phone: Plan of Treatment Date Care Activity Detail Author Start: 12-27-2024 Measurement of respiratory function [facility] Start: 12-21-2024 Walking distance 6 minutes [facility] Start: 12-20-2024 Hospital admission, emergency, from emergency room, medical nature [facility] Start: 10-07-2024 [facility] Start: 08-18-2024 [facility] Start: 08-03-2024 Patient discharge [facility] Start: 07-31-2024 Elevation of affected extremity [facility] Start: 07-31-2024 Fluid restriction [facility] Start: 07-31-2024 Notification of physician [facility] Start: 07-31-2024 Patient education [facility] Start: 07-31-2024 Referral to service [facility] Start: 07-30-2024 Following clinical pathway protocol [facility] Start: 07-30-2024 Aspiration precautions [facility] Start: 07-30-2024 Assessment of risk of venous thromboembolism [facility] Start: 07-30-2024 Cardiac monitoring [facility] Start: 07-30-2024 Catheterization of vein [facility] Start: 07-30-2024 Consultation [facility] Start: 07-30-2024 Continuous pulse oximetry [facility] Start: 07-30-2024 Elevation of head of bed [facility] Start: 07-30-2024 Exercises [facility] Start: 07-30-2024 Fall prevention [facility] Start: 07-30-2024 Inhalation therapy procedure [facility] Start: 07-30-2024 Insertion of catheter into peripheral vein [facility] Start: 07-30-2024 Introduction of urinary catheter [facility] Start: 07-30-2024 Measuring intake and output [facility] Start: 07-30-2024 Notification of physician [facility] Start: 07-30-2024 Oxygen therapy [facility] Start: 07-30-2024 Providing care according to standard [facility] Start: 07-30-2024 Provision of activity privileges [facility] Start: 07-30-2024 Referral to occupational therapist [facility] Start: 07-30-2024 Referral to service [facility] Start: 07-30-2024 Speech therapy assessment [facility] Start: 07-30-2024 Tobacco use cessation education [facility] Start: 07-30-2024 End: 07-30-2024 [facility] Start: 07-30-2024 Admission procedure [facility] Start: 07-30-2024 Hospital admission, emergency, from emergency room, medical nature [facility] Start: 07-30-2024 [facility] Start: 07-30-2024 Patient referral to [facility] Start: 09-25-2023 Referral to service [facility] Start: 09-25-2023 Patient discharge [facility] Start: 09-25-2023 Fluid restriction [facility] Start: 09-23-2023 Assessment of risk of venous thromboembolism [facility] Start: 09-23-2023 Catheterization of vein [facility] Start: 09-23-2023 Elevation of affected extremity [facility] Start: 09-23-2023 Insertion of catheter into peripheral vein [facility] Start: 09-23-2023 Measuring intake and output [facility] Start: 09-23-2023 Notification of physician [facility] Start: 09-23-2023 Patient education [facility] Start: 09-23-2023 Providing care according to standard [facility] Start: 09-23-2023 Provision of activity privileges [facility] Start: 09-23-2023 Referral to occupational therapist [facility] Start: 09-23-2023 Referral to service [facility] Start: 09-23-2023 [facility] Start: 09-23-2023 Following clinical pathway protocol [facility] Start: 09-23-2023 Admission procedure [facility] Start: 09-23-2023 Patient referral to [facility] Start: 02-25-2023 Colsc flx w/rmvl of tumor polyp lesion snare tq COLONOSCOPY W/LESION REMOVAL [facility] Start: 02-25-2023 Patient discharge [facility] Start: 01-29-2022 Colonoscopy w/biopsy single/multiple COLONOSCOPY AND BIOPSY [facility] Work Phone: Start: 01-29-2022 Colsc flx w/rmvl of tumor polyp lesion snare tq COLONOSCOPY W/LESION REMOVAL [facility] Work Phone: Start: 01-29-2022 Colsc flx with directed submucosal njx any sbst COLONOSCOPY SUBMUCOUS NJX [facility] Work Phone: Start: 01-29-2022 Patient discharge [facility] Work Phone: Start: 01-27-2022 [facility] Work Phone: Start: 03-21-2020 Influenza vaccination given Sequential Influenza Vaccine (#1) [facility] Start: 1987 Administration of herpes zoster vaccine Zoster Vaccines (1 of 2) [facility] Start: 1949 Adolescent depression screening assessment Depression Screening (PHQ9) [facility] Start: 1940 History and physical examination, annual for health maintenance Wellness Visit [facility] Start: 1937 Fall risk assessment Falls Risk Assessment [facility] Start: 1937 Tetanus vaccination Tetanus: Every 10yrs [facility] CBC W Auto Different ial panel - Blood [facility] Lipid 1996 panel - S clay or Plasma [facility] Measurement of respi ratory function [facility] Patient Education [facility] Work Phone: Patient referral [facility] Work Phone: Prostate specific an tigen measurement [facility] Urine culture Urine Culture [facility] Work Phone: Urine culture [facility] Vitamin D, 25-hydrox y measurement [facility] Walking distance 6 minutes [facility] Immunizations Immunization Date Immunization Notes Care Provider [facility] 05-05-2024 Seasonal trivalent influenza vaccine, adjuvanted, preservative free Dr. La Woods MD Work Phone: [facility] 05-08-2023 influenza, injectabl e, quadrivalent, preservative free Dr. La Woods Work Phone: [facility] 05-09-2022 Influenza High-Dose Quadrivalent Dr. La Woods MD Work Phone: [facility] 05-09-2021 Covid (Pfizer) Dr. La hull MD Work Phone: [facility] 04-26-2021 Fluzone High-Dose Quadrivalent 0.7 ML Intramuscular Suspension Prefilled Syringe; Translations: [Fluzone High-Dose Quadrivalent 0.7 ML Intramuscular Suspension Prefilled Syringe] Chuck Paulino Work Phone: [facility] Comment on above: Series: 04-26-2021 influenza, seasonal, injectable Chuck Paulino Work Phone: [facility] Work Phone: Comment on above: Series: 08-31-2020 Pfizer-BioNTech COVI D-19 Vacc 30 MCG/0.3ML Intramuscular Suspension Chuck Paulino Work Phone: [facility] Comment on above: Series: 08-12-2020 Pfizer-BioNTech COVI D-19 Vacc 30 MCG/0.3ML Intramuscular Suspension Chuck Paulino Work Phone: [facility] Comment on above: Series: 05-01-2020 influenza, high dose seasonal, preservative-free Chuck Paulino Work Phone: [facility] Comment on above: Series: 04-20-[address] Chuck Paulino Work Phone: [facility] 05-18-2019 influenza, injectabl e, quadrivalent, preservative free; Translations: [Flulaval Quadrivalent 0.5 ML Intramuscular Suspension Prefilled Syringe] Chuck Paulino [facility] Comment on above: Series: 04-10-2017 influenza, high dose seasonal, preservative-free Chuck Paulino Work Phone: [facility] 04-10-2017 pneumococcal polysaccharide vaccine, 23 valent Chuck Paulino [facility] Comment on above: Series: 04-08-2016 influenza, high dose seasonal, preservative-free Chuck Paulino Work Phone: [facility] 04-08-2016 pneumococcal conjuga te vaccine, 13 valent Chuck Paulino [facility] Comment on above: Series: 05-02-[address] Chuck Paulino Work Phone: [facility] 06-16-[address] Dioni Paulino Work Phone: [facility] Work Phone: 06-16-2011 pneumococcal vaccine , unspecified formulation Dr. La Woods Work Phone: [facility] 08-10-2009 novel influenza-H1N1 -09, preservative-free, injectable Chuck Paulino Work Phone: [facility] 06-14-2003 pneumococcal polysaccharide vaccine, 23 valent Chuck Paulino Work Phone: [facility] Payers Date Payer Category Payer Self-pay [id number] 2017 Unknown AARP AARP [facility] [id number] 2017-Present [id number]. [id number] 2017 Unknown [id number] 2002 Medicare MEDICARE MEDICAR E PART A & B [id number] 2002-Present [place] [id number]. [id number] 2002 Medicare [id number] 1937 Unknown [id number] 2.16.840.1.979607.3.579.2.356 1937 Unknown [id number] 2.16.840.1.227930.3.579.2.356 1937 Unknown [id number] 2.16.840.1.755531.3.579.2.356 1937 Unknown [id number] 2.16.840.1.606042.3.579.2.356 1937 Unknown [id number] 2.16.840.1.588885.3.579.2.356 1937 Unknown [id number] 2.16.840.1.568955.3.579.2.903 1937 Unknown [id number] 2.16.840.1.510995.3.579.2.902 1937 Unknown [id number] 2.16.840.1.783396.3.579.2.902 1937 Unknown [id number] 2.16.840.1.660927.3.579.2.902 Medicare [id number] Unknown Unknown [id number] 2.16.840.1.286270.3.579.2.462 Unknown [id number] 2.16.840.1.739439.3.579.2.462 Unknown [id number] 2.16.840.1.545670.3.579.2.462 Unknown [id number] 2.16.840.1.317693.3.579.2.462 Unknown [id number] 2.16.840.1.550794.3.579.2.462 Unknown [id number] 2.16.840.1.736410.3.579.2.462 Unknown [id number] 2.16.840.1.370309.3.579.2.462 Unknown [id number] 2.16.840.1.154111.3.579.2.462 Unknown [id number] 2.16.840.1.827499.3.579.2.462 Unknown [id number] 2.16.840.1.102328.3.579.2.462 Unknown [id number] 2.16.840.1.073912.3.579.2.462 Unknown [id number] 2.16.840.1.747028.3.579.2.462 Unknown [id number] 2.16.840.1.947706.3.579.2.462 Unknown [id number] 2.16.840.1.681499.3.579.2.462 Unknown [id number] 2.16.840.1.607772.3.579.2.462 Unknown [id number] 2.16.840.1.032247.3.579.2.462 Unknown [id number] 2..840.1.882229.3.579.2.462 Unknown [id number] 2.16.840.1.267884.3.579.2.462 Unknown [id number] 2.16.840.1.237308.3.579.2.462 Unknown [id number] 2.16.840.1.453590.3.579.2.462 Unknown [id number] 2.16.840.1.347198.3.579.2.462 Unknown [id number] 2.16.840.1.895344.3.579.2.462 Unknown [id number] 2.16.840.1.311800.3.579.2.462 Unknown [id number] 2.16.840.1.389388.3.579.2.462 Unknown [id number] 2.16.840.1.187647.3.579.2.462 Unknown [id number] 2.16.840.1.901230.3.579.2.462 Unknown [id number] 2.16.840.1.904346.3.579.2.462 Unknown [id number] 2.16.840.1.915187.3.579.2.462 Unknown [id number] 2.16.840.1.328777.3.579.2.462 Unknown [id number] 2.16.840.1.694871.3.579.2.462 Unknown [id number] 2.16840.1.838640.3.579.2.462 Unknown [id number] 2.840.1.799596.3.579.2.462 Unknown [id number] 2.840.1.335352.3.579.2.462 Unknown [id number] 2.840.1.694535.3.579.2.462 Unknown [id number] 2.840.1.664750.3.579.2.462 Unknown [id number] 2.840.1.980256.3.579.2.462 Unknown [id number] 2.840.1.897171.3.579.2.462 Unknown [id number] 2.840.1.532817.3.579.2.462 Unknown [id number] 2.840.1.143083.3.579.2.462 Unknown [id number] 2.840.1.723680.3.579.2.462 Unknown [id number] 2.840.1.291072.3.579.2.462 Unknown [id number] 2.840.1.458880.3.579.2.462 Unknown [id number] 2.840.1.126635.3.579.2.462 Unknown [id number] 2.840.1.686294.3.579.2.462 Unknown [id number] 2.840.1.289404.3.579.2.462 Unknown [id number] 2.16.840.1.476094.3.579.2.462 Unknown [id number] 2.16.840.1.031766.3.579.2.462 Unknown [id number] 2.16.840.1.712083.3.579.2.462 Unknown [id number] 2.16.840.1.685922.3.579.2.462 Unknown [id number] 2.16.840.1.831452.3.579.2.462 Unknown [id number] 2.16.840.1.384487.3.579.2.462 Unknown [id number] 2.16.840.1.115951.3.579.2.462 Unknown [id number] 2.16.840.1.521704.3.579.2.462 Unknown [id number] 2.16.840.1.568351.3.579.2.462 Social History Date Type Detail Facility Start: 04-27-2018 Tobacco smoking status SCIS Never smoker [facility] Work Phone: Start: 04-27-2018 Tobacco use and exposure Never used [facility] Start: 04-27-2018 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 alcohol (finding) [facility] Sex Assigned At Not on file [facility] Never a smoker Never a smoker [facility] Work Phone: Start: 10-02-2021 End: 10-20-2023 Tobacco smoking status SCIS Unknown if ever smoked [facility] Start: 1935 Sex Assigned At Male [facility] Start: 09-03-2024 End: 12-20-2024 Tobacco smoking status SCIS Ex-smoker (finding) [facility] Start: 09-03-2024 - [facility] Start: 09-30-2024 End: 11-02-2024 Sex Male (finding) [facility] NEGATED: Highlighted row - - [facility] Work Phone: Medical Equipment Procedure Code Equipment Code Equipment Origin al Text Equipment Identifier Dates Colonoscopy RESOLUTION 360 C LIP 235 CM FDA Start: 01-29-2022 Colonoscopy RESOLUTION 360 C LIP 235 CM FDA Start: 01-29-2022 Colonoscopy RESOLUTION 360 C LIP 235 CM FDA Start: 01-29-2022 Colonoscopy RESOLUTION 360 C LIP 235 CM FDA Start: 01-29-2022 Colonoscopy RESOLUTION 360 C LIP 235 CM FDA Start: 02-25-2023 Colonoscopy RESOLUTION 360 C LIP 235 CM FDA Start: 01-29-2022 Colonoscopy RESOLUTION 360 C LIP 235 CM FDA Start: 02-25-2023 Colonoscopy RESOLUTION 360 C LIP 235 CM FDA Start: 01-29-2022 Colonoscopy RESOLUTION 360 C LIP 235 CM FDA Start: 02-25-2023 Colonoscopy RESOLUTION 360 C LIP 235 CM FDA Start: 01-29-2022 Colonoscopy RESOLUTION 360 C LIP 235 CM FDA Start: 02-25-2023 Colonoscopy RESOLUTION 360 C LIP 235 CM FDA Start: 01-29-2022 Colonoscopy RESOLUTION 360 C LIP 235 CM FDA Start: 02-25-2023 Colonoscopy RESOLUTION 360 C LIP 235 CM FDA Start: 01-29-2022 Colonoscopy RESOLUTION 360 C LIP 235 CM FDA Start: 02-25-2023 Colonoscopy RESOLUTION 360 C LIP 235 CM FDA Start: 01-29-2022 Colonoscopy RESOLUTION 360 C LIP 235 CM FDA Start: 02-25-2023 Colonoscopy RESOLUTION 360 C LIP 235 CM FDA Start: 01-29-2022 Colonoscopy RESOLUTION 360 C LIP 235 CM FDA Start: 02-25-2023 Colonoscopy RESOLUTION 360 C LIP 235 CM FDA Start: 01-29-2022 Colonoscopy RESOLUTION 360 C LIP 235 CM FDA Start: 02-25-2023 Colonoscopy FDA Start: 01-29-2022 Colonoscopy FDA Start: 02-25-2023 Colonoscopy FDA Start: 01-29-2022 Colonoscopy FDA Start: 02-25-2023 Colonoscopy FDA Start: 01-29-2022 Colonoscopy FDA Start: 02-25-2023 Colonoscopy FDA Start: 01-29-2022 Colonoscopy FDA Start: 02-25-2023 Colonoscopy FDA Start: 01-29-2022 Colonoscopy FDA Start: 02-25-2023 Colonoscopy FDA Start: 01-29-2022 Colonoscopy FDA Start: 02-25-2023 Colonoscopy RESOLUTION 360 C LIP 235 CM FDA Start: 01-29-2022 Colonoscopy RESOLUTION 360 C LIP 235 CM FDA Start: 02-25-2023 Colonoscopy RESOLUTION 360 C LIP 235 CM FDA Start: 01-29-2022 Colonoscopy RESOLUTION 360 C LIP 235 CM FDA Start: 02-25-2023 Goals Date Patient Goal Desired Activity /State Functional Status Date Assessment Result Facility 08-03-2024 Functional status Ambulates [facility] Work Phone: 09-25-2023 Functional status Ambulates [facility] Work Phone: 09-25-2023 Functional status Tolerates Acti vity Well [facility] Work Phone: NEGATED: Highlighted row Functional performance Functional status health issues are not documented Disease [facility] Work Phone: Mental Status Date Assessment Result Facility 12-20-2024 Cognitive function Voice/Name [facility] Work Phone: 08-18-2024 Cognitive function Awake;Alert;A ppropriate ;Follows Commands [facility] Work Phone: 08-03-2024 Cognitive function Voice/Name [facility] Work Phone: 09-25-2023 Cognitive function Voice/Name [facility] Work Phone: 02-25-2023 Cognitive function Level Of Cons ciousness Sedated [facility] Work Phone: 02-25-2023 Cognitive function Patient Orien tation Person;Place;Time [facility] Work Phone: 01-29-2022 Cognitive function Light Pain [facility] Work Phone: 01-29-2022 Cognitive function Patient Orien tation Person;Place;Time [facility] Work Phone: NEGATED: Highlighted row Cognitive function [Interpretation] Cognitive status health issues are not documented Disease [facility] Work Phone: Clinical Notes 08-17-2020 to 12-22-2024 Note Date & Type Note Facility 12-22-2024 Note [facility] 12-20-2024 Radiology Diagnostic study note [facility] Imaging Services [address] [place] [address] Chest PA and Lateral MR#: [id number] Acct: [id number] Name: BRAYAN STEVENS Rep #: [id number] : [id number] M [id number] From: Marine Juarez MD PCP: Dr. La Woods MD Status: REG ER Study:Chest PA and Lateral Date of Exam: 12/20/24 Exam# [id number] Ordering Dr: Refugio Back MD PROCEDURE: CHEST PA AND LATERAL 12/20/2024 REASON FOR EXAM: WEAKNESS TECHNIQUE: Frontal and lateral views of the chest. COMPARISON: 08/18/2024 FINDINGS: Lungs: Lungs clear of pneumonia and congestion. Pleura: No pleural effusions, thickening, or pneumothorax. Heart: Cardiac enlargement. Mediastinum/Tika: Unremarkable. Great vessels: Aorta is atherosclerotic and tortuous. Bones/soft tissues: Cardiac monitoring leads overlie the chest wall. RAD/Chest PA and Lateral IMPRESSION: Cardiac enlargement. Otherwise no active cardiopulmonary disease. Reading Location: [place] [address] CC: Dr. Edin Back MD; Dr. La Woods MD ~ Vice President Of Recruiting: Signed [facility] 12-20-2024 Radiology Diagnostic study note [facility] Imaging Services [address] [place] [address] [id number] Brain/Head without Contrast MR#: [id number] Acct: [id number] Name: BRAYAN STEVENS Rep #: [id number] : [id number] M [id number] From: Mariann Huizar MD PCP: Dr. La Woods MD Status: REG ER Study:Brain/Head without Contrast Date of Exa m: 12/20/24 Exam# [id number] Ordering Dr: Refugio Back MD EXAM: CT Head Without Intravenous Contrast CLINICAL INDICATION: GENERALIZED WEAKNESS TECHNIQUE: Axial computed tomography images of the head/brain without intravenous contrast. This CT exam was performed using one or more of the following dose reduction techniques: automated exposure control, adjustment of the mA and/or kV according to patient size, and/or use of iterative reconstruction technique. COMPARISON: CT Head dated 07/30/2024 FINDINGS: BRAIN AND EXTRA-AXIAL SPACES: The cerebral and cerebellar sulci are prominent consistent with brain atrophy. Areas of decreased attenuation in the deep cerebral white matter are consistent with small vessel ischemic/degenerative changes. No acute intracranial hemorrhage, midline shift or mass effect. If symptoms persist, further evaluation with MRI is recommended. BONES/JOINTS: Unremarkable. No acute fracture. SOFT TISSUES: Unremarkable. SINUSES: Unremarkable as visualized. No acute sinusitis. MASTOID AIR CELLS: Unremarkable as visualized. No mastoid effusion. CT/Brain/Head without Contrast IMPRESSION: 1. Generalized brain atrophy. 2. Small vessel ischemic/degenerative changes. 3. No acute intracranial hemorrhage, midline shift or mass effect. If symptoms persist, further evaluation with MRI is recommended. 4. No significant change from the prior exam. Reading Location: [facility] CC: Dr. Edin Back MD; Dr. 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 September 062024 12:56pm Chronic diastolic (congestive) heart failure chronic September 06, 2024 12:56pm COPD (chronic obstructive pulmonary disease) chronic August 12:56pm Essential (primary) hypertension chronic September 06, 2024 12:56pm History of coronary artery stent placement August 17, 2020 chronic September 06, 2024 12:56pm Obstructive sleep apnea chronic September 06, 2024 12:56pm Paroxysmal atrial fibrillation chronic September 06, 2024 12:56pm UTI (urinary tract infection) acute September 11, 2024 12:33pm Osteoarthritis of left knee acute December 01, 2024 11:17am Shortness of breath acute November 202024 2:25pm Chronic diastolic (congestive) heart failure chronic December 17, 2024 2:25pm Obstructive sleep apnea chronic December 17, 2024 2:25pm Paroxysmal atrial fibrillation chronic December 17, 2024 2:25pm [facility] Work Phone: 1(966) 537-658701-14-2025 [facility]01-10-2025 Evaluation note* Diagnosis Onset Date Resolution Status Admit Date Ataxia acute July 30, 2024 7:01pm Chronic anticoagulation acute J anuary 2024 7:01pm Encephalopathy acute acute 2024 7:01pm Atrial fibrillation with normal ventricular rate inactive July 30, 2024 7:01pm Hypoxia inactive July 30, 2024 7:01pm Chronic anticoagulation acute J anuary 2024 1:58pm Hyponatremia acute July 1:58pm 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 August 09 1:58pm Chronic diastolic (congestive) heart failure chronic 2024 1:58pm COPD (chronic obstructive pulmonary disease) chronic August 09, 2024 1:58pm History of coronary artery stent placement August 17, 2020 chronic August 09, 2024 1:58pm Left knee pain acute August 132024 10:48am Osteoarthritis of left knee acute August 13, 2024 10:48am Bilateral leg edema acute 2024 2:11pm Right leg pain acute August 182024 2:11pm Dyspnea on exertion acute 2024 3:38pm Hyponatremia acute August 3:38pm Essential (primary) hypertension chronic August 26 3:38pm History of coronary artery stent placement August 17, 2020 chronic August 26, 2024 3:38pm Hyperlipidemia chronic August 262024 3:38pm Bilateral leg edema acute 2024 12:56pm Dyspnea on exertion acute 2024 12:56pm senior 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 acute September 06, 2 025 12:56pm Chronic diastolic (congestive) heart failure chronic 2024 12:56pm COPD (chronic obstructive pulmonary disease) chronic August 12:56pm Essential (primary) hypertension chronic September 06 025 12:56pm History of coronary artery stent placement August 17, 2020 chronic August 12:56pm Obstructive sleep apnea chronic F ebruary 2024 12:56pm Paroxysmal atrial fibrillation chronic September 06 025 12:56pm UTI (urinary tract infection) acute September 11 12:33pm Osteoarthritis of left knee acute December 01, 2024 11:17am [facility] Work Phone: 1(648) 786-555312-18-2024 Evaluation note* Diagnosis Onset Date Resolution Status Admit Date Osteoarthritis of left knee acute July 07, 2024 12:43pm Left knee pain acute July 11:27am Dyspnea on exertion acute 2024 1:14pm 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 July 26 1:14pm Chronic diastolic (congestive) heart failure chronic 2024 1:14pm COPD (chronic obstructive pulmonary disease) chronic July 26, 2024 1:14pm Essential (primary) hypertension chronic July 26 1:14pm History of coronary artery stent placement August 17, 2020 chronic July 26, 2024 1:14pm Ataxia acute July 30, 2024 7:01pm Chronic anticoagulation acute J anuary 2024 7:01pm Encephalopathy acute acute 2024 7:01pm Atrial fibrillation with normal ventricular rate inactive July 30, 2024 7:01pm Hypoxia inactive July 30, 2024 7:01pm Chronic anticoagulation acute J anuary 2024 1:58pm Hyponatremia acute July 1:58pm 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 August 09 1:58pm Chronic diastolic (congestive) heart failure chronic 2024 1:58pm COPD (chronic obstructive pulmonary disease) chronic August 09, 2024 1:58pm History of coronary artery stent placement August 17, 2020 chronic August 09, 2024 1:58pm Left knee pain acute August 132024 10:48am Osteoarthritis of left knee acute August 13, 2024 10:48am Bilateral leg edema acute 2024 2:11pm Right leg pain acute August 182024 2:11pm Dyspnea on exertion acute 2024 3:38pm Hyponatremia acute August 3:38pm Essential (primary) hypertension chronic August 26 3:38pm History of coronary artery stent placement August 17, 2020 chronic August 26, 2024 3:38pm Hyperlipidemia chronic August 262024 3:38pm Bilateral leg edema acute 2024 12:56pm Dyspnea on exertion acute 2024 12:56pm 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 September 06, 2 025 12:56pm Chronic diastolic (congestive) heart failure chronic 2024 12:56pm COPD (chronic obstructive pulmonary disease) chronic August 12:56pm Essential (primary) hypertension chronic September 06, 2 025 12:56pm History of coronary artery stent placement August 17, 2020 chronic August 12:56pm Obstructive sleep apnea chronic F ebruary 2024 12:56pm Paroxysmal atrial fibrillation chronic September 06, 2 025 12:56pm UTI (urinary tract infection) acute September 11 2 025 12:33pm [facility] Work Phone: 1(143) 184-733311-25-2024 Evaluation note* Diagnosis Onset Date Resolution Status Admit Date Dyspnea on exertion acute 2023 9:56am Essential (primary) hypertension chronic June 14, 2 024 9:56am History of coronary artery stent placement August 17, 2020 chronic May 9:56am Hyperlipidemia chronic May 222023 9:56am Osteoarthritis of left knee acute July 07, 2024 12:43pm Left knee pain acute July 11:27am Dyspnea on exertion acute 2024 1:14pm 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 July 26 1:14pm Chronic diastolic (congestive) heart failure chronic 2024 1:14pm COPD (chronic obstructive pulmonary disease) chronic July 26, 2024 1:14pm Essential (primary) hypertension chronic July 26 1:14pm History of coronary artery stent placement August 17, 2020July 26, 2024 1:14pm Ataxia acute July 30, 2024 7:01pm Chronic anticoagulation acute J anuary 2024 7:01pm Encephalopathy acute acute 2024 7:01pm Atrial fibrillation with normal ventricular rate inactive July 30, 2024 7:01pm Hypoxia inactive July 30, 2024 7:01pm Chronic anticoagulation acute J anuary 2024 1:58pm Hyponatremia acute July 1:58pm 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 August 09 1:58pm Chronic diastolic (congestive) heart failure chronic 2024 1:58pm COPD (chronic obstructive pulmonary disease) chronic August 09, 2024 1:58pm History of coronary artery stent placement August 17, 2020 chronic August 09, 2024 1:58pm Left knee pain acute August 132024 10:48am Osteoarthritis of left knee acute August 13, 2024 10:48am Bilateral leg edema acute 2024 2:11pm Right leg pain acute August 182024 2:11pm Dyspnea on exertion acute 2024 3:38pm Hyponatremia acute August 3:38pm Essential (primary) hypertension chronic August 26 3:38pm History of coronary artery stent placement August 17, 2020 chronic August 26, 2024 3:38pm Hyperlipidemia chronic August 262024 3:38pm Bilateral leg edema acute 2024 12:56pm Dyspnea on exertion acute 2024 12:56pm 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 September 06 025 12:56pm Chronic diastolic (congestive) heart failure chronic 2024 12:56pm COPD (chronic obstructive pulmonary disease) chronic August 12:56pm Essential (primary) hypertension chronic September 06 2 025 12:56pm History of coronary artery stent placement August 17, 2020 chronic August 12:56pm Obstructive sleep apnea chronic F ebruary 2024 12:56pm Paroxysmal atrial fibrillation chronic September 06, 2 025 12:56pm UTI (urinary tract infection) acute September 11 025 12:33pm [facility] Work Phone: 1([phone]) 191-655003-07-2024 Discharge summary Author Yayo Esquivel [facility] September 25, 2023 10:09am Note Date/Time September 25, 2023 10:0 7am [facility] Medical Records Department [address] [place] [address] Discharge Summary 09/25/23 1005 MR#: [id number] Acct: [id number] Name: BRAYAN STEVENS Rep #:[id number] : 1935 88 From: Yayo Esquivel MD PCP: Dr. La Woods MD Status:ADM [facility] Prov[facility] Date of Admission: 09/23/23 Date of Discharge: 09/25/23 Primary Care Physician: Dr. La Woods MD Reason For Visit: SHORTNESS OF BREATH 2/2 ACUTE HRPEF Diagnosis Discharge Diagnosis (1) Dyspnea: Status: Acute Code(s): R06.00 - Dyspnea, unspecified (2) Hyponatremia: Status: Acute Code(s): E87.1 - Hypo-osmolality and hyponatremia Plan Patient is an 88-year-old gentleman admitted with progressive shortness of breath. Admitted to monitored bed for further management 1. Acute dyspnea ?? Anginal equivalent. Placed on a monitored bed serial cardiac enzymes ordered. As part of patient's management nuclear stress test ordered 2. 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 Echo from05/20/2023 which showed an EF of 55%, severe concentric LVH with diastolic dysfunction and a right ventricular systolic pressure of 30 mmHg. Patient is on diuretic therapy with Aldactone as well as furosemide continued -09/25/2019 4 repeat echo demonstrated -Severe concentric left ventricular hypertrophy. The left ventricular ejection fraction is 70 %. Diastolic function is indeterminate. There is mild biatrial dilatation. Right ventricular systolic pressure estimated to be 46 mmHg. Mildly dilated aortic root. The study was technically difficult 3. Hyponatremia ? Secondary to fluid overload status do expect improvement with diuresis 4. Paroxysmal A-fib ? Rate controlled with beta-blockers on systemic anticoagulation with apixaban 5. Dyslipidemia -Patient is on statin therapy, continued at home dose 6. Hypertension - Blood pressure controlled, home medications continued with dose adjustment as needed 7.Obstructive sleep apnea ? Patient is on BiPAP at night 8. Coronary artery disease ? With previous KARIS to mid RCA lesion patient remains on guideline directed medical therapy 9. COPD ? Currently not in exacerbation aerosol treatment as needed 10. Infected tooth ? Patient is on amoxicillin continue 11. Physical deconditioning - Requested for PT OT eval and social work professor to assist with discharge planning 12. Hyperbilirubinemia -suspected to be secondary to CHF monitoring 13. Class II obesity with BMI of 39.6 ? Complicating care weight loss advised 14. DVT prophylaxis ? On apixaban Time spent in the patient's overall evaluation,decision-making process, review of diagnostic data, adjustment of management, discussion with other providers, nursing nursing and ancillary staff involved in patient's care documentation, 35 Minutes Medications at Discharge Home Medications cholecalciferol (vitamin D3) 25 mcg (1,000 unit) capsule 25 mcg PO DAILY SUPPLEMENT 06/27/20 vit C 250 mg-vit E 90 mg-zinc 40 mg-copper 1 uo-dnciwy-gsdawt capsule (PreserVision AREDS-2) 1 tab PO DAILY supplement 06/27/20 finasteride 5 mg tablet 5 mg PO DAILY PROSTATE 06/03/22 tamsulosin 0.4 mg capsule 0.4 mg PO DAILY PROSTATE 06/03/22 nitroglycerin 0.4 mg sublingual tablet 0.4 mg sublingual Q5-15M PRN CHEST PAIN #25 tabs 10/31/22 turmeric 100 mg-nomi 150 mg-olive 50 mg-oreg 150 mg-capryl capsule 1 cap PO DAILY 10/31/22 atorvastatin 20 mg tablet (Lipitor) 20 mg PO DAILY CHOLESTEROL #90 tabs 12/02/22 metoprolol succinate 25 mg tablet,extended release 24 hr 25 mg PO DAILY BLOOD PRESSURE #90 tabs 02/27/23 coenzyme Q10 100 mg capsule (CoQ-10) 100 mg PO DAILY SUPPLEMENT 04/29/23 spironolactone 25 mg tablet 25 mg PO DAILY BLOOD PRESSURE #90 tabs 04/29/23 albuterol sulfate 2.5 mg/3 mL (0.083 %) solution for nebulization 2.5 mg (3 mL) inhalation Q4H PRN shortness of breath or wheezing #75 mL 04/30/23 apixaban 5 mg tablet (Eliquis) 5 mg PO BID BLOOD THINNER #180 tabs 05/30/23 amoxicillin 500 mg capsule 500 mg PO Q8H ANTIBIOTIC 09/23/23 aspirin 81 mg tablet,delayed release (Adult Aspirin Regimen) 81 mg PO DAILY HEART HEALTH 09/23/23 furosemide 40 mg tablet 40 mg PO BID EDEMA #120 tabs 09/25/23 Physical Exam Narrative GENERAL: cooperative HEENT: Atraumatic; normocephalic EYES; Anicteric, Normal Conjunctiva NECK; supple, normal thyroid, RESPIRATORY: Diminished to auscultation CARDIOVASCULAR: Regular S1 S2, GI: soft, normoactive bowel sounds, : No Renal angle tenderness; EXTREMITIES: No edema, no clubbing, MUSCULOSKELETAL: no muscle wasting NEURO: Awake; no lateralizing signs. SKIN: No Rash PSYCH; Flat affect Weight / BMI Weight Weight: 124.4 kg Body Mass Index (BMI) 39.3 ABG / Lab / Microbiology Data 09/24/23 03:40 09/24/23 03:40 Microbiology: Microbiology 09/23/23 14:30 Mucosa - Nasopharyngeal SARS-CoV-2, Influenza & RSV (PCR) - Final Radiography Diagnostic Testing: Radiology Impression Echocardiogram 09/23/23 19:39 Interpretation Summary Severe concentric left ventricular hypertrophy. The left ventricular ejection fraction is 70 %. Diastolic function is indeterminate. There is mild biatrial dilatation. Right ventricular systolic pressure estimated to be 46 mmHg. Mildly dilated aortic root. The study was technically difficult. Ordering Physician: Lucero Acevedo Referring Physician: La Woods Performed By: Lisa Spears RDCS D/C Instructions Discharge Diet: 8 Cup Fluid Restriction and 2000 mg Sodium Diet Discharge Activity: Return to Normal Activity Call your doctor if you observe: Fever of 101 or Higher, Shortness of breath, Fainting spells and Chest pain Meaningful Use Info Meaningful Use Diagnoses (Choose all that apply): CHF CHF NAHOMI/ARB ordered at discharge?: No Reason NAHOMI/ARB not ordered?: Normal EF Documented LVEF (%): 70 Discharge Plan Admission Admit Date/Time: 09/23/23 18:19 Attending Provider: Yayo Esquivel Primary Care Provider: La Woods Consulting Providers: Lucero Acevedo Discharge Orders/Prescriptions Prescriptions: Continued PreserVision AREDS-2 [id number] ti-rmpp-qv-mg capsule 1 tab PO DAILY Rx Instructions: administer with meals cholecalciferol (vitamin D3) 25 mcg (1,000 unit) capsule 25 mcg PO DAILY tamsulosin 0.4 mg capsule 0.4 mg PO DAILY finasteride 5 mg tablet 5 mg PO DAILY inmverbk-lvul-hbkbm-oreg-capry 100 mg-150 mg- 50 mg-150 mg capsule 1 cap PO DAILY nitroglycerin 0.4 mg tablet, sublingual 0.4 mg SUBLINGUAL Q5-15M PRN (Reason: CHEST PAIN ) Qty: 25 3RF Rx Instructions: do not exceed 3 doses per episode coenzyme Q10 [CoQ-10] 100 mg capsule 100 mg PO DAILY spironolactone 25 mg tablet 25 mg PO DAILY Qty: 90 3RF amoxicillin 500 mg capsule 500 mg PO Q8H Rx Instructions: TAKE 1 CAPSULE BY MOUTH EVERY 8 HOURS UNTIL GONE. START DATE: 09/15/2023 END DATE: 09/25/2023 aspirin [Adult Aspirin Regimen] 81 mg tablet,delayed release (DR/EC) 81 mg PO DAILY atorvastatin [Lipitor] 20 mg tablet 20 mg PO DAILY Qty: 90 3RF metoprolol succinate 25 mg tablet extended release 24 hr 25 mg PO DAILY Qty: 90 3RF albuterol sulfate 2.5 mg /3 mL (0.083 %) solution for nebulization 2.5 mg inhalation Q4H PRN (Reason: shortness of breath or wheezing) Qty: 75 1RF Eliquis 5 mg tablet 5 mg PO BID Qty: 180 4RF Hold Instructions: epistaxis Changed furosemide 40 mg tablet 40 mg PO BID Qty: 120 3RF Referrals / Follow Up: La Woods MD [Primary Care Provider] - Within 2 Weeks Disposition Disposition (needs filled in before D/C Order can be placed): Home, Self Care Charges/Coding Visit Charges Inpatient E&M: 74389 Disch Hosp >30min 09/25/23 1009 <Electronically signed by Yayo Esquivel MD> Cosigner Signature (if applicable): CC: Dr. Yayo Esquivel MD; Dr. La Woods MD~ Signed [facility] Work Phone: 1(379) 785-924703-06-2024 Progress note Author Yayo Esquivel [facility] September 24, 2023 12:07pm Note Date/Time September 24, 2023 8:56 am [facility] Medical Records Department [address] [place] [address] Progress Note - Hospitalist 09/24/23 0851 MR#: [id number] Acct: [id number] Name: BRAYAN STEVENS Rep #:[id number] : 1935 88 From: Yayo Esquivel MD PCP: Dr. La Woods MD Status:ADM IN Location: [place] [address] Reason for Visit Reason for Visit: Diagnoses Other disorders of bilirubin metabolism (09/23/23) Hypo-osmolality and hyponatremia (09/23/23) Dyspnea, unspecified (09/23/23) Other malaise (09/23/23) Subjective Subjective Patient is an 88-year-old gentleman admitted with progressive shortness of breath. Admitted to monitored bed for further management Objective Data Objective Data Vital Signs: Vital Signs Temp Pulse Resp BP Pulse Ox O2 Del Method 97 F L 62 18 127/74 H 97 Room Air 09/24/23 04:00 09/24/23 04:00 09/24/23 04:00 09/24/23 04:00 09/24/23 04:00 09/24/23 08:10 Oxygen Delivery Method Room Air Weight: 125.1 kg Body Mass Index (BMI) 39.5 Intake & Output: Intake and Output for Last 24 Hours 09/22/23 09/23/23 09/24/23 23:59 23:59 23:59 Intake Total 240 / 240 Output Total 700 / 700 Balance -460 / -460 Lab / Micro Data 09/24/23 03:40 09/24/23 03:40 Labs: Laboratory Results - last 24 hr 09/23/23 14:00: WBC 5.6, RBC 4.09 L, Hgb 12.8 L, Hct 36.0 L, MCV 88.0, MCH 31.3,MCHC 35.6, RDW Std Deviation 39.5, RDW Coeff of Armani 12.2, Plt Count 201, MPV 9.8, Immature Gran % (Auto) 0.400, Neut % (Auto) 71.0 H, Lymph % (Auto) 15.4 L, Rolette % (Auto) 10.5 H, Eos % (Auto) 1.4, Baso % (Auto) 1.3 H, Absolute Neuts (auto) 4.0, Absolute Lymphs (auto) 0.86, Nucleated RBC % 0, Sodium 128 L, Potassium 4.1, Chloride 94 L, Carbon Dioxide 24.0, Anion Gap 10, BUN 16, Creatinine 1.14, Est GFR (MDRD) Af Amer 78, Est GFR (MDRD) Non-Af 65, BUN/Creatinine Ratio 14.0, Glucose 108 H, Calcium 9.3, Total Bilirubin 1.20 H, Direct Bilirubin 0.41 H, AST 24, ALT 21, Alkaline Phosphatase 142 H, Troponin I High Sens 46, B-Natriuretic Peptide 162.6 H, Total Protein 7.6, Albumin 3.7, Globulin 3.9 09/23/23 14:49: Urine Color Straw, Urine Clarity Clear, Urine pH 6.0, Ur Specific [place] 1.010, Urine Protein Negative, Urine Glucose (UA) Normal, UrineKetones Negative, Urine Occult Blood Negative, Urine Nitrite Negative, Urine Bilirubin Negative, Urine Urobilinogen Normal, Ur Leukocyte Esterase Negative, Urine RBC 0 SEEN, Urine WBC 0 SEEN, Ur Squamous Epith Cells 0 SEEN, Urine Bacteria 0 SEEN, Urine Mucus 0 SEEN 09/23/23 22:12: Troponin I High Sens 45 09/23/23 23:45: Troponin I High Sens 46 09/24/23 03:40: WBC 7.0, RBC 4.10 L, Hgb 12.5 L, Hct 35.3 L, MCV 86.1, MCH 30.5,MCHC 35.4, RDW Std Deviation 38.5, RDW Coeff of Armani 12.1, Plt Count 203, MPV 9.8, Immature Gran % (Auto) 0.400, Neut % (Auto) 71.7 H, Lymph % (Auto) 14.4 L, Rolette % (Auto) 10.0, Eos % (Auto) 1.9, Baso % (Auto) 1.6 H, Absolute Neuts (auto)5.0, Absolute Lymphs (auto) 1.01, Nucleated RBC % 0, Sodium 129 L, Potassium 4.0, Chloride 97 L, Carbon Dioxide 21.0, Anion Gap 11, BUN 13, Creatinine 0.98, Estim Creat Clear Calc 71.82, Est GFR (MDRD) Af Amer 93, Est GFR (MDRD) Non-Af 77, BUN/Creatinine Ratio 13.3, Glucose 113 H, Calcium 8.8, Phosphorus 2.7, Magnesium 1.9, Total Bilirubin 1.20 H, AST 23, ALT 20, Alkaline Phosphatase 131 H, Troponin I High Sens 53, Total Protein 7.0, Albumin 3.4, Globulin 3.6, Albumin/Globulin Ratio 0.9, TSH 1.77 Micro: Microbiology 09/23/23 14:30 Mucosa - Nasopharyngeal SARS-CoV-2, Influenza & RSV (PCR) - Final Radiography Diagnostic Testing: Radiology Impression Chest X-Ray 09/23/23 14:14 IMPRESSION: Cardiomegaly. Electronically Signed: Nida Paris MD at 14:26 EST , Physical Exam Narrative GENERAL: cooperative HEENT: Atraumatic; normocephalic EYES; Anicteric, Normal Conjunctiva NECK; supple, normal thyroid, RESPIRATORY: Diminished to auscultation CARDIOVASCULAR: Regular S1 S2, GI: soft, normoactive bowel sounds, : No Renal angle tenderness; EXTREMITIES: No edema, no clubbing, MUSCULOSKELETAL: no muscle wasting NEURO: Awake; no lateralizing signs. SKIN: No Rash PSYCH; Flat affect Assessment & Plan Assessment/Plan (1) Dyspnea: (2) Hyponatremia: PLAN: Plan Patient is an 88-year-old gentleman admitted with progressive shortness of breath. Admitted to monitored bed for further management 1. Acute dyspnea ?? Anginal equivalent. Placed on a monitored bed serial cardiac enzymes ordered. As part of patient's management nuclear stress test ordered 2. 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 Echo from05/20/2023 which showed an EF of 55%, severe concentric LVH with diastolic dysfunction and a right ventricular systolic pressure of 30 mmHg. Patient is on diuretic therapy with Aldactone as well as furosemide continued 3. Hyponatremia ? Secondary to fluid overload status do expect improvement with diuresis 4. Paroxysmal A-fib ? Rate controlled with beta-blockers on systemic anticoagulation with apixaban 5. Dyslipidemia -Patient is on statin therapy, continued at home dose 6. Hypertension - Blood pressure controlled, home medications continued with dose adjustment as needed 7.Obstructive sleep apnea ? Patient is on BiPAP at night 8. Coronary artery disease ? With previous KARIS to mid RCA lesion patient remains on guideline directed medical therapy 9. COPD ? Currently not in exacerbation aerosol treatment as needed 10. Infected tooth ? Patient is on amoxicillin continue 11. Physical deconditioning - Requested for PT OT eval and social work professor to assist with discharge planning 12. Hyperbilirubinemia -suspected to be secondary to CHF monitoring 13. Class II obesity with BMI of 39.6 ? Complicating care weight loss advised 14. DVT prophylaxis ? On apixaban Time spent in the patient's overall evaluation,decision-making process, review of diagnostic data, adjustment of management, discussion with other providers, nursing nursing and ancillary staff involved in patient's care documentation, 50 Minutes Charges/Coding Visit Charges Inpatient E&M: 94863 [facility] Hosp 09/24/23 1207 <Electronically signed by Yayo Esquivel MD> Cosigner Signature (if applicable): CC: ~ Signed [facility] Work Phone: 1(988) 882-557303-05-2024 History and physical note Author Lucero Acevedo [facility] September 23, 2023 7:06pm Note Date/Time September 23, 2023 6:30 pm [facility] Medical Records Department [address] [place] [id number] H&P Exam - Hospitalist 09/23/23 1825 MR#: [id number] Acct: [id number] Name: BRAYAN STEVENS Rep #:[id number] : 1935 88 From: Lucero Acevedo DO PCP: Dr. La Woods MD Status:ADM IN Location: [facility] [id number] HPI - General General Date of Admission: 09/23/23 Date of Service: 09/23/23 Chief Complaint: Shortness of breath/functional decline HPI Narrative BRAYAN STEVENS, is a 88 M who presented to the emergency department at [facility] on 09/23/2023 with worsening shortness of breath and generalized weakness. It was reported that is been ongoing for several weeks and it seems to be worse over the past week. His reported that he has beentaking small shuffling steps and gets very short of breath even with minimal exertion. He reported some intermittent left-sided chest pain but did not have any on presentation. He does have a history of coronary disease with stent placement. He takes Eliquis chronically for history of atrial fibrillation. Hiswife reports that they do watch his sodium and he has been taking his Lasix at home. He complains of some sharp chest pain right underneath his left breast intermittently but it is reproducible with even light touch. He was told at 1 point he had sleep apnea and this was back in November at which time he did have a sleep study however he was told by Dr. Berry that if he lost some weighthe will should not require CPAP however he is actually gained weight since that point in time. He does have previous stent placed that was in 2020. He denies any significant weight gain recently related to fluid and does not report any swelling in his legs. He has a chronic cough that is productive of some clear sputum. He had no fever or chills. Vital signs show temperature of 98, heart rate 53, blood pressure is 130/72, respiratory was 24, oxygen saturation was 97%. CBC is overall unremarkable witha chronic stable anemia. Chemistry panel shows a sodium of 128 which is slightly off his baseline of about 135, bilirubin is 1.2 and indirect bilirubin 0.4. His initial troponin was 46, his BNP was 162.6 which is elevated and likely falsely lower than what it is running due to his morbid obesity. His UA is unremarkable. EKG shows A-fib with bradycardia at a rate of 55. Chest x-rayshows cardiomegaly without any significant heart failure. 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 Cardiology follow-up encounter Chewing tobacco use Chronic diastolic (congestive) heart failure COPD (chronic obstructive pulmonary disease) Diverticulitis Epistaxis Essential (primary) hypertension Hiatal hernia High cholesterol History of echocardiogram History of edema History of stress test Hyperlipidemia Hypersomnia Hypoxia Insect bite of hand with infection Leg swelling Non-smoker Obstructive sleep apnea Olecranon bursitis, right elbow Persistent atrial fibrillation Rash Renal cyst Shortness of breath on exertion Skin tear Strain of tendon of right rotator cuff Syncope and collapse Wears glasses Wears hearing aid Wears partial dentures Home Medications cholecalciferol (vitamin D3) 25 mcg (1,000 unit) capsule 25 mcg PO DAILY SUPPLEMENT 06/27/20 [History Last Taken 09/22/23] vit C 250 mg-vit E 90 mg-zinc 40 mg-copper 1 [id number]-esnosf-tglzhq capsule (PreserVision AREDS-2) 1 tab PO DAILY supplement 06/27/20 [History Last Taken 09/22/23] finasteride 5 mg tablet 5 mg PO DAILY PROSTATE 06/03/22 [History Last Taken 09/22/23] tamsulosin 0.4 mg capsule 0.4 mg PO DAILY PROSTATE 06/03/22 [History Last Taken 09/22/23] furosemide 40 mg tablet 40 mg PO DAILY EDEMA #90 tabs 10/31/22 [Rx Last Taken 09/22/23] nitroglycerin 0.4 mg sublingual tablet 0.4 mg sublingual Q5-15M PRN CHEST PAIN #25 tabs 10/31/22 [Rx Last Taken Unknown] turmeric 100 mg-nomi 150 mg-olive 50 mg-oreg 150 mg-capryl capsule 1 cap PO DAILY 10/31/22 [History Last Taken 09/22/23] atorvastatin 20 mg tablet (Lipitor) 20 mg PO DAILY CHOLESTEROL #90 tabs 12/02/22 [Rx Last Taken 09/22/23] metoprolol succinate 25 mg tablet,extended release 24 hr 25 mg PO DAILY BLOOD PRESSURE #90 tabs 02/27/23 [Rx Last Taken 09/22/23] coenzyme Q10 100 mg capsule (CoQ-10) 100 mg PO DAILY SUPPLEMENT 04/29/23 [History Last Taken 09/22/23] spironolactone 25 mg tablet 25 mg PO DAILY BLOOD PRESSURE #90 tabs 04/29/23 [Rx Last Taken 09/22/23] albuterol sulfate 2.5 mg/3 mL (0.083 %) solution for nebulization 2.5 mg (3 mL) inhalation Q4H PRN shortness of breath or wheezing #75 mL 04/30/23 [Rx Last Taken Unknown] apixaban 5 mg tablet (Eliquis) 5 mg PO BID BLOOD THINNER #180 tabs 05/30/23 [Rx Last Taken 09/23/23] amoxicillin 500 mg capsule 500 mg PO Q8H ANTIBIOTIC 09/23/23 [History Last Taken 09/23/23] aspirin 81 mg tablet,delayed release (Adult Aspirin Regimen) 81 mg PO DAILY HEART HEALTH 09/23/23 [History Last Taken 09/22/23] Allergy/AdvReac Type Severity Reaction Status Date / Time peanut Allergy Itching Verified 09/23/23 12:34 levofloxacin [From Levaquin] AdvReac Rash Verified 09/23/23 12:34 Family History Brother Colon cancer Mother Hypertension Father Hypertension Other No pertinent family history Surgical History History of cardiac catheterization History of cataract surgery History of colonoscopy with polypectomy History of coronary artery stent placement (08/17/20) History of orchiectomy History of transurethral resection of prostate Social History Smoking Status: Never smoker alcohol intake: never substance use type: does not use caffeine: Yes Type: coffee Number of servings: 2 ROS Constitutional Constitutional: Reports fatigue, malaise and weakness; Denies anorexia, change in weight, chills, fever(s), night sweats or other Eyes Eyes: Denies blurry vision, change in eye color, change in vision, discharge from eye(s), double vision, erythema, eye pain, loss of vision or other ENT HEENT: Denies abnormal hearing, dysphagia, ear pain, epistaxis, headache(s), hearing loss, nasal congestion, nasal discharge, post nasal drip, sinus pressure, sore throat or other Cardiovascular Cardiovascular: Reports chest pain, dyspnea on exertion and orthopnea; Denies claudication, edema, lightheadedness, palpitations, paroxysmal nocturnal dyspnea,rapid heart rate, syncope or other Respiratory/Chest Respiratory/Chest: Reports dyspnea, shortness of breath at rest and shortness ofbreath with exertion; Denies cough, excessive phlegm production, hemoptysis, productive cough, wheezing or other Gastrointestinal Gastrointestinal: Denies abdominal pain, coffee ground emesis, constipation, diarrhea, dyspepsia, hematemesis, hematochezia, loose stools, melena, nausea, vomiting or other Genitourinary Genitourinary: Denies burning urination, difficulty urinating, dysuria, hematuria, nocturia, urinary frequency, urinary hesitancy, urinary incontinence,urinary urgency or other Musculoskeletal Musculoskeletal: Denies arthralgias, back pain, joint pain, joint stiffness, joint swelling, myalgias, neck pain or other Neurologic Neurologic: Denies abnormal gait, abnormal speech, confusion, disequilibrium, dizziness, focal weakness, headache(s), numbness, paresthesias, seizure-like activity, seizures, syncope, tingling, tremor(s) or other Psychiatric Psychiatric: Denies anxiety, depression, homicidal ideation, suicidal ideation or other Endocrine Endocrinology: Denies change in body appearance, cold intolerance, excessive sweating, heat intolerance, polydipsia, polyuria or other Hematologic/Lymphatic Hematologic/Lymphatic: Denies anemia, easy bleeding, easy bruising, lymphadenopathy or other Allergic/Immunologic Allergic/Immunologic: Denies rhinitis, hives, eczemia, asthma or other Vital Signs Vital Signs Vital Signs: 09/23/23 12:32 09/23/23 12:52 09/23/23 12:52 Temperature 98 F Temperature Source Temporal Pulse Rate 53 L 56 L Respiratory Rate 24 H 26 H Respiratory Effort Short of Breath Labored Accessory Muscle Use Blood Pressure 130/72 H 110/73 Blood Pressure Mean 91 85 Pulse Ox 97 98 Oxygen Delivery Method Room Air Room Air Room Air 09/23/23 12:53 09/23/23 14:57 09/23/23 16:38 Temperature Temperature Source Pulse Rate 57 L 68 Respiratory Rate 18 19 H Respiratory Effort Short of Breath Labored Accessory Muscle Use Blood Pressure 132/75 H 113/90 H Blood Pressure Mean 94 97 Pulse Ox 100 98 Oxygen Delivery Method Room Air 09/23/23 17:28 Temperature 97.5 F L Temperature Source Pulse Rate 66 Respiratory Rate 18 Respiratory Effort Blood Pressure 140/63 H Blood Pressure Mean 88 Pulse Ox 97 Oxygen Delivery Method Physical Exam Const alert, oriented x3, no apparent distress and well nourished; Negative for average body habitus or healthy appearing Constitutional Narrative: Obese, older, white male, sitting up in bed, at bedside, somewhat labored breathing but not an extremis, appears chronically ill General Appearance: cooperative HEENT normocephalic and head/scalp atraumatic HEENT Narrative: Moderate hearing loss even with hearing aids in place, dentition is poor Eyes PERRL, EOMs intact bilaterally and conjunctivae normal Eyes Narrative: No scleral icterus Neck no lymphadenopathy and supple Neck Narrative: Positive JVD, trachea midline, no thyroid enlargement, neck is short and thick Resp No normal respiratory effort, no retractions, no use of accessory muscles and clear to auscultation bilaterally Resp Narrative: Breathing appears effortful however lung sounds are clear, no signs of extremis Auscultation: Negative for rales, rhonchi or wheezes Cardio regular rhythm, S1 normal heart sound, S2 normal heart sound, no murmurs, no rub, no gallops and no clicks Cardio Narrative: Irregular irregular rhythm GI normal to inspection, nondistended, normoactive bowel sounds, soft to palpation and non-tender Extremity no clubbing, cyanosis or edema Extremity Narrative: Pedal pulses are 2+ chronic lower extremity edema noted Skin Skin Narrative: Erythema under bilateral breasts Neuro oriented x3, CN's II-XII intact bilaterally and moves all extremities Speech: speech normal Psych affect normal Psych Narrative: Appears comfortable, nontoxic Results Lab / Micro Data 09/23/23 14:00 09/23/23 14:00 Labs: Laboratory Results - last 24 hr 09/23/23 14:00: WBC 5.6, RBC 4.09 L, Hgb 12.8 L, Hct 36.0 L, MCV 88.0, MCH 31.3,MCHC 35.6, RDW Std Deviation 39.5, RDW Coeff of Armani 12.2, Plt Count 201, MPV 9.8, Immature Gran % (Auto) 0.400, Neut % (Auto) 71.0 H, Lymph % (Auto) 15.4 L, Rolette % (Auto) 10.5 H, Eos % (Auto) 1.4, Baso % (Auto) 1.3 H, Absolute Neuts (auto) 4.0, Absolute Lymphs (auto) 0.86, Nucleated RBC % 0, Sodium 128 L, Potassium 4.1, Chloride 94 L, Carbon Dioxide 24.0, Anion Gap 10, BUN 16, Creatinine 1.14, Est GFR (MDRD) Af Amer 78, Est GFR (MDRD) Non-Af 65, BUN/Creatinine Ratio 14.0, Glucose 108 H, Calcium 9.3, Total Bilirubin 1.20 H, Direct Bilirubin 0.41 H, AST 24, ALT 21, Alkaline Phosphatase 142 H, Troponin I High Sens 46, B-Natriuretic Peptide 162.6 H, Total Protein 7.6, Albumin 3.7, Globulin 3.9 09/23/23 14:49: Urine Color Straw, Urine Clarity Clear, Urine pH 6.0, Ur Specific [place] 1.010, Urine Protein Negative, Urine Glucose (UA) Normal, UrineKetones Negative, Urine Occult Blood Negative, Urine Nitrite Negative, Urine Bilirubin Negative, Urine Urobilinogen Normal, Ur Leukocyte Esterase Negative, Urine RBC 0 SEEN, Urine WBC 0 SEEN, Ur Squamous Epith Cells 0 SEEN, Urine Bacteria 0 SEEN, Urine Mucus 0 SEEN Micro: Microbiology 09/23/23 14:30 Mucosa - Nasopharyngeal SARS-CoV-2, Influenza & RSV (PCR) - Final Imaging Radiology Impression Chest X-Ray 09/23/23 14:14 IMPRESSION: Cardiomegaly. Electronically Signed: Nida Paris MD at 14:26 EST , Assessment & Plan Assessment/Plan (1) Dyspnea: (2) Declining functional status: (3) Hyperbilirubinemia: (4) Hyponatremia: PLAN: Plan Shortness of breath/exertional dyspnea -Suspect related to heart failure with preserved ejection fraction -Lasix 40 mg IV twice daily -Daily weights -Check echocardiogram -Will check stress test -Cycle cardiac enzymes -Not currently requiring any supplemental oxygen but would continue to monitor -Last echocardiogram was done on 05/20/2023 which showed an EF of 55%, severe concentric LVH with diastolic dysfunction and a right ventricular systolic pressure of 30 mmHg Hyponatremia -Suspect it is related to the above -Will monitor -Baseline sodium seems to run between 133 and 138 -Will monitor with ongoing diuresis Hyperbilirubinemia -Again suspect related to acute heart failure -Continue to monitor Functional decline/debility -PT/OT consultation -Case management/social work consultation Infected tooth -Continue home amoxicillin CAD/HTN/HPL/AF -Continue home apixaban -Continue home aspirin -Continue home atorvastatin -Hold home Lasix -Continue home metoprolol -Continue home Aldactone COPD -Continue as needed nebulizers -No wheezing on exam BPH with obstruction -Continue Flomax -Continue finasteride CHUCHO -Patient was told he does not have to wear CPAP but that was several years ago -Highly suspect he has obstructive sleep apnea that may benefit from treatment -Will assess overnight pulse oximetry And recommend outpatient follow-up with Dr. Berry Obesity -Recommend weight loss -Complicates treatment, prognosis, outcomes DVT prophylaxis -Continue home apixaban CODE STATUS -DNR CCA as discussed the emergency department Charges/Coding Visit Charges Inpatient E&M: 74667 Init Hosp L2 09/23/23 1906 <Electronically signed by Lucero Acevedo DO> Cosigner Signature (if applicable): CC: Dr. Lucero Acevedo DO; Dr. La Woods MD~ Signed [facility] Work Phone: [phone] Discharge summary Author Consuelo Mcclain [facility] September 23, 2023 5:29pm Note Date/Time September 23, 2023 3:58 pm [facility] Medical Records Department [address] [place] [address] Emergency Department Summary 09/23/23 MR#: [id number] Acct: [id number] Name: BRAYAN STEVENS Rep #:[id number] : 1935 88 From: Consuelo Mcclain MD PCP: Dr. La Woods MD Status:REG ER Location: ED HPI History of Present Illness Chief Complaint: Shortness of Breath Informant: patient and spouse/S.O. Narrative Narrative: Patient presents with continued and worsening shortness of breath and generalized weakness. Symptoms been ongoing for several weeks, but spouse states that seems to be worse over the past week. Patient states he takes small shuffling steps and will get very short of breath with the slightest exertion. He has had some intermittent left-sided chest pain but denies any chest pain today. Patient does have cardiac history with stents. He is on Eliquis chronically. He also has a history of COPD and CHF. 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 Cardiology follow-up encounter Chewing tobacco use Chronic diastolic (congestive) heart failure COPD (chronic obstructive pulmonary disease) Diverticulitis Epistaxis Essential (primary) hypertension Hiatal hernia High cholesterol History of echocardiogram History of edema History of stress test Hyperlipidemia Hypersomnia Hypoxia Insect bite of hand with infection Leg swelling Non-smoker Obstructive sleep apnea Olecranon bursitis, right elbow Persistent atrial fibrillation Rash Renal cyst Shortness of breath on exertion Skin tear Strain of tendon of right rotator cuff Syncope and collapse Wears glasses Wears hearing aid Wears partial dentures Home Medications saw palmetto 450 mg capsule 900 mg PO DAILY 05/18/14 [History Last Taken Unknown] cholecalciferol (vitamin D3) 25 mcg (1,000 unit) capsule 25 mcg PO DAILY 06/27/20 [History Last Taken Unknown] vit C 250 mg-vit E 90 mg-zinc 40 mg-copper 1 uj-zspyqk-xgqdsl capsule (PreserVision AREDS-2) 1 tab PO DAILY supplement 06/27/20 [History Last Taken Unknown] vitamin B complex 1 tab PO DAILY 10/02/21 [History Last Taken Unknown] finasteride 5 mg tablet 5 mg PO DAILY 06/03/22 [History Last Taken Unknown] tamsulosin 0.4 mg capsule 0.4 mg PO DAILY 06/03/22 [History Last Taken Unknown] aspirin 81 mg tablet,delayed release (Adult Aspirin Regimen) 81 mg PO QDAY #90 tabs 10/31/22 [Rx Last Taken Unknown] furosemide 40 mg tablet 40 mg PO DAILY #90 tabs 10/31/22 [Rx Last Taken Unknown] nitroglycerin 0.4 mg sublingual tablet 0.4 mg sublingual Q5-15M PRN chest pain #25 tabs 10/31/22 [Rx Last Taken Unknown] turmeric 100 mg-nomi 150 mg-olive 50 mg-oreg 150 mg-capryl capsule 1 cap PO DAILY 10/31/22 [History Last Taken Unknown] atorvastatin 20 mg tablet (Lipitor) 20 mg PO DAILY #90 tabs 12/02/22 [Rx Last Taken Unknown] metoprolol succinate 25 mg tablet,extended release 24 hr 25 mg PO DAILY #90 tabs02/27/23 [Rx Last Taken Unknown] coenzyme Q10 100 mg capsule (CoQ-10) 100 mg PO DAILY 04/29/23 [History Last Taken Unknown] spironolactone 25 mg tablet 25 mg PO DAILY #90 tabs 04/29/23 [Rx Last Taken Unknown] albuterol sulfate 2.5 mg/3 mL (0.083 %) solution for nebulization 2.5 mg (3 mL) inhalation Q4H PRN shortness of breath or wheezing #75 mL 04/30/23 [Rx Last Taken Unknown] apixaban 5 mg tablet (Eliquis) 5 mg PO BID #180 tabs 05/30/23 [Rx Last Taken Unknown] Allergy/AdvReac Type Severity Reaction Status Date / Time peanut Allergy Itching Verified 09/23/23 12:34 levofloxacin [From Levaquin] AdvReac Rash Verified 09/23/23 12:34 Family History Brother Colon cancer Mother Hypertension Father Hypertension Other No pertinent family history Surgical History History of cardiac catheterization History of cataract surgery History of colonoscopy with polypectomy History of coronary artery stent placement (08/17/20) History of orchiectomy History of transurethral resection of prostate Social History Smoking Status: Never smoker alcohol intake: never substance use type: does not use caffeine: Yes Type: coffee Number of servings: 2 ROS ROS ED Constitutional Constitutional ED: Denies chills or fever(s) Eyes Eyes: Denies discharge from eye(s) ENT ENT ED: Denies discharge from eye(s), rhinorrhea or sore throat Cardiovascular Cardiovascular: Reports chest pain; Denies palpitations Respiratory/Chest Respiratory/Chest: Reports cough and dyspnea Gastrointestinal Gastrointestinal: Denies abdominal pain, diarrhea, nausea or vomiting Genitourinary Genitourinary ED: Denies dysuria Musculoskeletal Musculoskeletal: Denies back pain or extremity pain Integumentary Denies Abrasions or rash Neurologic Neurologic: Reports weakness; Denies headache(s) Psychiatric Psychiatric: Denies anxiety or depression Allergic/Immunologic Allergic/Immunologic ED: Denies lip swelling or urticaria EXAM Physical Exam Const Vital Signs: 09/23/23 12:32 09/23/23 12:52 09/23/23 12:52 Temperature 98 F Temperature Source Temporal Pulse Rate 53 L 56 L Respiratory Rate 24 H 26 H Respiratory Effort Short of Breath Labored Accessory Muscle Use Blood Pressure 130/72 H 110/73 Blood Pressure Mean 91 85 Pulse Ox 97 98 Oxygen Delivery Method Room Air Room Air Room Air 09/23/23 12:53 09/23/23 14:57 Temperature Temperature Source Pulse Rate 57 L Respiratory Rate 18 Respiratory Effort Short of Breath Labored Accessory Muscle Use Blood Pressure 132/75 H Blood Pressure Mean 94 Pulse Ox 100 Oxygen Delivery Method Positive well nourished and well developed General Appearance ED: well developed HEENT Reports moist mucous membranes Eyes EOMs intact bilaterally Chest Wall inspection of chest normal and palpation of chest normal Resp Resp Narrative: Diminished breath sounds bilateral bases. Cardio Rate: bradycardia GI non-tender Palpation: soft Extremity Extremity Narrative: 1-2+ bilateral lower extremity edema, symmetric. Neuro oriented x3 Neuro Narrative: No focal neurologic deficit. Skin no rashes or lesions noted MDM MDM MDM Narrative Medical decision making narrative: Patient placed on pvc monitor. IV line initiated. EKG obtained to evaluatefor cardiac arrhythmia/ischemia. Chest x-ray obtained to evaluate for acute lung pathology, cardiac size, or mediastinal abnormality. Labwork obtained to evaluate for leukocytosis, anemia, and electrolyte derangement. Urinalysis obtained to evaluate for infection/hematuria. Swab for COVID, influenza, and RSV will be obtained. History & Record Review Discussion w/independent historian: Patient and Family Additional record(s) reviewed:: Prior outpatient record and Prior labs Lab Data Attestation: I reviewed the patient's lab results. Labs: Laboratory Results - last 24 hr 09/23/23 09/23/23 14:00 14:49 WBC 5.6 RBC 4.09 L Hgb 12.8 L Hct 36.0 L MCV 88.0 MCH 31.3 MCHC 35.6 RDW Std Deviation 39.5 RDW Coeff of Armani 12.2 Plt Count 201 MPV 9.8 Immature Gran % (Auto) 0.400 Neut % (Auto) 71.0 H Lymph % (Auto) 15.4 L Rolette % (Auto) 10.5 H Eos % (Auto) 1.4 Baso % (Auto) 1.3 H Absolute Neuts (auto) 4.0 Absolute Lymphs (auto) 0.86 Nucleated RBC % 0 Sodium 128 L Potassium 4.1 Chloride 94 L Carbon Dioxide 24.0 Anion Gap 10 BUN 16 Creatinine 1.14 Est GFR (MDRD) Af Amer 78 Est GFR (MDRD) Non-Af 65 BUN/Creatinine Ratio 14.0 Glucose 108 H Calcium 9.3 Total Bilirubin 1.20 H Direct Bilirubin 0.41 H AST 24 ALT 21 Alkaline Phosphatase 142 H Troponin I High Sens 46 B-Natriuretic Peptide 162.6 H Total Protein 7.6 Albumin 3.7 Globulin 3.9 Urine Color Straw Urine Clarity Clear Urine pH 6.0 Ur Specific [place] 1.010 Urine Protein Negative Urine Glucose (UA) Normal Urine Ketones Negative Urine Occult Blood Negative Urine Nitrite Negative Urine Bilirubin Negative Urine Urobilinogen Normal Ur Leukocyte Esterase Negative Urine RBC 0 SEEN Urine WBC 0 SEEN Ur Squamous Epith Cells 0 SEEN Urine Bacteria 0 SEEN Urine Mucus 0 SEEN Radiography Chest X-Ray - ED: 1 View, Read by ED Physician, Chronic Changes and Cardiomegaly Diagnostic Testing: Clinical Impression(s) from Imaging Studies Chest X-Ray 09/23/23 14:14 IMPRESSION: Cardiomegaly. Electronically Signed: Nida Paris MD at 14:26 EST , EKG Initial EKG: Attestation: I personally reviewed and interpreted this EKG as follows: Interpretation: Atrial Fibrillation (A-fib at 55 with right bundle branch block. No acute ischemia.) Treatment and Re-Evaluation :: CBC was a white count of 5.6 with a hemoglobin of 12.8. 71% neutrophils are noted. Chemistry studies reveal slightly low sodium at 128. BUN is 16 and creatinine is 1.14. LFTs significant for total bili of 1.2, direct bili 0.41, alk phos of 142. BNP is 162, consistent with his prior values. Troponin is normal at 46. Urinalysis reveals no evidence of acute infection. Chest x-ray per my interpretation was chronic changes with cardiomegaly. No evidence of infiltrate. Radiology interpretation reviewed and agrees. EKG is atrial fibrillation with slow ventricular rate in the 50s. Patient has significant difficulty with getting around his home given his dyspnea. He has not been hypoxic here. Given his functional decline I will speak with hospitalist regarding admission. Discharge Plan Triage Chief Complaint: Shortness of Breath Other Complaint: Weakness ED Provider: Consuelo Mcclain Dx/Rx/DC Orders Clinical Impression: Dyspnea, Declining functional status Prescriptions: No Action PreserVision AREDS-2 [phone] hd-arcj-xh-mg capsule 1 tab PO DAILY Rx Instructions: administer with meals cholecalciferol (vitamin D3) 25 mcg (1,000 unit) capsule 25 mcg PO DAILY vitamin B complex Tablet 1 tab PO DAILY tamsulosin 0.4 mg capsule 0.4 mg PO DAILY finasteride 5 mg tablet 5 mg PO DAILY tokzospg-epzc-zznix-oreg-capry 100 mg-150 mg- 50 mg-150 mg capsule 1 cap PO DAILY furosemide 40 mg tablet 40 mg PO DAILY Qty: 90 3RF nitroglycerin 0.4 mg tablet, sublingual 0.4 mg SUBLINGUAL Q5-15M PRN (Reason: chest pain) Qty: 25 3RF Rx Instructions: do not exceed 3 doses per episode aspirin [Adult Aspirin Regimen] 81 mg tablet,delayed release (DR/EC) 81 mg PO QDAY Qty: 90 3RF coenzyme Q10 [CoQ-10] 100 mg capsule 100 mg PO DAILY spironolactone 25 mg tablet 25 mg PO DAILY Qty: 90 3RF saw palmetto 450 MG capsule 900 mg PO DAILY Patient Comments: health supplement atorvastatin [Lipitor] 20 mg tablet 20 mg PO DAILY Qty: 90 3RF metoprolol succinate 25 mg tablet extended release 24 hr 25 mg PO DAILY Qty: 90 3RF albuterol sulfate 2.5 mg /3 mL (0.083 %) solution for nebulization 2.5 mg inhalation Q4H PRN (Reason: shortness of breath or wheezing) Qty: 75 1RF Eliquis 5 mg tablet 5 mg PO BID Qty: 180 4RF Hold Instructions: epistaxis Primary Care Provider: La Woods Referrals: La Woods MD [Primary Care Provider] - Disposition Disposition: Acute Care Hospital [facility] What to do if you have Problems For any increased pain, shortness of breath, bleeding, nausea or vomiting, chestpain, or any unexpected problems, contact your Primary Care Provider. Call [facility] ([phone]) or report to the closest Emergency Room. Call 911 if necessary. 09/23/23 7112 <Electronically signed by Consuelo Mcclain MD> Cosigner Signature (if applicable): CC: Dr. La Woods MD ~ Signed [facility] Work Phone: 1(991) 832-443908-08-2023 History and physical note Author Jamarcus Duran [facility] February 25, 2023 5:56am Note Date/Time February 25, 2023 5:5 6am [facility] Medical Records Department [address] [place] [address] History & Physical Exam 02/25/23 0555 MR#: [id number] Acct: [id number] Name: BRAYAN STEVENS Rep #:[id number] : 1935 87 From: Jamarcus Duran MD PCP: Dr. La Woods MD Status:[facility] Location: [place] [address] History and Physical Date of Admission: 02/25/23 Visit Reasons: Yearly C-Scope Rec Recall Letter Chief Complaint: yearly c-cope recall letter Is patient in pain?: No Allergies peanut Allergy (Verified 02/03/23 13:09) Itchinglevofloxacin [From Levaquin] Adverse Reaction (Verified 02/03/23 13:09) Rash Medications saw palmetto 450 mg capsule 900 mg PO DAILY 05/18/14 [History Confirmed 02/03/23] cholecalciferol (vitamin D3) 25 mcg (1,000 unit) capsule 25 mcg PO DAILY 06/27/20 [History Confirmed 02/03/23] vit C 250 mg-vit E 90 mg-zinc 40 mg-copper 1 yu-ocyqid-rovqsv capsule (PreserVision AREDS-2) 1 tab PO DAILY supplement 06/27/20 [History Confirmed 02/03/23] vitamin B complex 1 tab PO DAILY 10/02/21 [History Confirmed 02/03/23] metoprolol succinate 25 mg tablet,extended release 24 hr 25 mg PO DAILY #90 tabs02/25/22 [Rx Confirmed 02/03/23] spironolactone 25 mg tablet 25 mg PO DAILY #90 tabs 05/22/22 [Rx Confirmed 02/03/23] finasteride 5 mg tablet 5 mg PO DAILY 06/03/22 [History Confirmed 02/03/23] tamsulosin 0.4 mg capsule 0.4 mg PO DAILY 06/03/22 [History Confirmed 02/03/23] apixaban 5 mg tablet (Eliquis) 5 mg PO BID #180 tabs 06/05/22 [Rx Confirmed 02/03/23] aspirin 81 mg tablet,delayed release (Adult Aspirin Regimen) 81 mg PO QDAY #90 tabs 10/31/22 [Rx Confirmed 02/03/23] furosemide 40 mg tablet 40 mg PO DAILY #90 tabs 10/31/22 [Rx Confirmed 02/03/23] nitroglycerin 0.4 mg sublingual tablet 0.4 mg sublingual Q5-15M PRN chest pain #25 tabs 10/31/22 [Rx Confirmed 02/03/23] tumeric 100 mg-nomi 150 mg-olive 50 mg-oreg 150 mg-caprylate capsule 1 cap PO DAILY 10/31/22 [History Confirmed 02/03/23] atorvastatin 20 mg tablet (Lipitor) 20 mg PO DAILY #90 tabs 12/02/22 [Rx Confirmed 02/03/23] PFSH Medical History Arthritis 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 Cardiology follow-up encounter Chewing tobacco use Chronic diastolic (congestive) heart failure COPD (chronic obstructive pulmonary disease) Diverticulitis Epistaxis Essential (primary) hypertension Hiatal hernia History of edema Hyperlipidemia Hypersomnia Hypoxia Insect bite of hand with infection Leg swelling Non-smoker Obstructive sleep apnea Olecranon bursitis, right elbow Persistent atrial fibrillation Rash Renal cyst Strain of tendon of right rotator cuff Syncope and collapse Wears glasses Wears hearing aid Wears partial dentures Surgical History History of cataract surgery History of colonoscopy with polypectomy History of coronary artery stent placement (08/17/20) History of orchiectomy History of transurethral resection of prostate Family History Brother Colon cancerMother HypertensionFather HypertensionOther No pertinent family history Social History Smoking Status: Never smoker alcohol intake: never substance use type: does not use caffeine: Yes Type: coffee Number of servings: 2 HPI HPI HPI: 87-year-old gentleman. On January 29, 2022 I assisted him with a colonoscopy. A 17 mm polyp was found in the cecum and removed removed with saline lift and hot snare. Hemostatic clip was placed. An additional 4 mm polyp was formed found in the cecum and additional 5 mm polyp and additional formalin polyp in the cecum and then an additional 8 mm polyp was found in the mid transverse colon. 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 The patient is on apixaban and aspirin in addition to his other medications. The patient has a family history of colon cancer with a brother who of colon cancer. The patient's been advised to try to lose weight. Claims that he went through postcardiac rehab. However he has actually gained some weight. He moves slowly and uses a cane ROS General General: Yes weight change and fatigue; No appetite, colon cancer, breast cancer or weakness HEENT HEENT: No difficulty swallowing, eye injury, eye surgery, swollen glands or hoarseness Endo Endocrine: No thyroid disease, diabetes mellitus, thyroid cancer, Hair loss, heat intolerance or cold intolerance Skin Skin: No rash or changing moles Musc Musculoskeletal: Yes arthritis; No back problems, rheumatoid arthritis, gout or joint pain Cardio Cardiovascular: Yes heart disease, atrial fibrillation, high blood pressure and heart stent; No murmur, pacemaker, heart attack, palpitations, shortness of breat with exertion or chest pain Psych Psychiatric: No depression, anxiety or hearing voices Resp Respiratory: Yes shortness of breath, No sleep apnea, No cough, No COPD, No asthma, No emphysema and No wheezing Gastro Gastrointestinal: No abdominal pain, No nausea or vomiting, No diarrhea, No constipation, No blood in stool, No acid reflux, Yes hemorrhoids, No ulcers, No gallbladder problem and No black,tarry stools [place] Hematologic: Yes blood thinners, No blood disorders, No bleeding, No anemia and No blood clots Neuro Neurologic: No system reviewed and no additional complaints, except as documented, No as per HPI, No abnormal gait, No abnormal hearing, No abnormal movements, No abnormal speech, No behavioral changes, No burning sensations, No confusion, No convulsions, No disequilibrium, No dizziness, No localized weakness, No frequent falls, No headache(s), No lack of coordination, No loss ofvision, No memory loss, No numbness, No other visual disturbances, No radicular pain, No restless legs, No sensory deficit, No syncope, No tingling, No tremor(s), No weakness and No other Exam Const General: cooperative, comfortable and no acute distress Nutritional Appearance: obese morbidly obese [facility] Head: normal to inspection Eyes General: appearance normal, both eyes and all related structures Chest Chest palpation & inspection: normal inspection of the chest Resp Effort & Inspection: normal respiratory effort Auscultation: clear to auscultation bilaterally Cardio Other: Irregular rate GI Other: Overweight, I am not able to determine any internal organs Neuro General: patient alert, patient awake and patient oriented x3 Extrem Other: 2+ bilateral extremity nonpitting edema Psych Appearance: grossly normal Assessment and Plan Assessment and Plan (1) Personal history of colonic polyps: Status: Acute (2) 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 colon cancer: Status: Acute (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 He is aware of the technique, benefit, risk and alternatives. He has been additionally encouraged to try to convert more to a vegetarian lifestyle and lose some weight. We will utilize monitored anesthesia care. We will ask him to hold his Eliquis for 2 days preprocedure. He has had an opportunity to ask and have questions answered. We will utilize an adult scope for the procedure. I appreciate the ongoing option of assisting with the surgical care. Copy: Dr. La Duran M.D., F.A.C.S I have examined the patient and the H&P has been reviewed. There are no clinicalchanges since date of exam. Jamarcus Duran M.D., F.A.C.S. 02/25/23 0556 <Electronically signed by Jamarcus Duran MD> Cosigner Signature (if applicable): CC: Dr. La Woods MD; Dr. Jamarcus Duran MD~ Signed [facility] Work Phone: 1(354) 468-237108-08-2023 [facility] 02-25-2023 [facility] History of Present illness NarrativeHarold is a 85-year-old male here with his . Patient is here for evaluation of the right lower extremity swelling and redness. Report that he has been having lower extremity edema for quite a fewmonths now. He has continued to have erythema in bilateral lower extremities in the area of swelling for that time as well. However, last week they noticed blisters developed in the conroy areas. Patient denies pain in the area. Denies fever.[facility] Work Phone: 1([phone]) 876-395101-28-2021 Evaluation note* Diagnosis Onset Date Resolution Status Dyspnea on exertion acute Fatigue acute Chronic diastolic (congestive) heart failure chronic Essential (primary) hypertension chronic History of coronary artery stent placement July chronic Hyperlipidemia chronic Paroxysmal atrial fibrillation [facility] Work Phone: 1(578) 554-255801-28-2021 Evaluation note* Diagnosis Onset Date Resolution Status Dyspnea on exertion acute Fatigue acute Chronic diastolic (congestive) heart failure chronic Essential (primary) hypertension chronic History of coronary artery stent placement July chronic Hyperlipidemia chronic Paroxysmal atrial fibrillation chronic Obesity (BMI 30-39.9) acute Osteoarthritis of left knee acute Atherosclerotic heart diseas e of viejas coronary artery without angina pectoris chronic COPD (chronic obstructive pulmonary disease) chronic Essential (primary) hypertension chronic Hyperlipidemia chronic Paroxysmal atrial fibrillation chronic Chronic diastolic (congestive) heart failure chronic Essential (primary) hypertension chronic History of coronary artery stent placement July chronic Hyperlipidemia chronic Paroxysmal atrial fibrillation chronic 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 colon cancer acute Personal history of colonic polyps acute Yeast dermatitis acute Hematuria acute Tinea corporis acute UTI (urinary tract infection) acute [facility] Work Phone: 1(864) 956-116601-28-2021 Evaluation note* Diagnosis Onset Date Resolution Status Chronic diastolic (congestive) heart failure chronic Essential (primary) hypertension chronic History of coronary artery stent placement July chronic Hyperlipidemia chronic Paroxysmal atrial fibrillation chronic Cellulitis resolved Osteoarthritis of left knee acute Osteoarthritis of left knee acute Atherosclerotic heart diseas e of viejas coronary artery without angina pectoris chronic Chronic diastolic (congestive) heart failure chronic COPD (chronic obstructive pulmonary disease) chronic Essential (primary) hypertension chronic History of coronary artery stent placement July chronic Hyperlipidemia chronic 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 colon cancer 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 Personal history of colonic polyps acute [facility] Work Phone: 1(116) 804-920501-28-2021 Evaluation note* Diagnosis Onset Date Resolution Status Osteoarthritis of left knee acute Dyspnea on exertion acute Essential (primary) hypertension chronic History of coronary artery stent placement July chronic Hyperlipidemia chronic Declining functional status resolved Dyspnea resolved Hyperbilirubinemia resolved Hyponatremia resolved Chronic diastolic (congestive) heart failure chronic COPD (chronic obstructive pulmonary disease) chronic Essential (primary) hypertension chronic Obstructive sleep apnea rn cvicu sydni Paroxysmal atrial fibrillation chronic Hyponatremia resolved UTI (urinary tract infection) acute [facility] Work Phone: 1(156) 951-586701-28-2021 Evaluation note* Diagnosis Onset Date Resolution Status Dyspnea on exertion acute Essential (primary) hypertension chronic History of coronary artery stent placement July chronic Hyperlipidemia chronic Declining functional status resolved Dyspnea resolved Hyperbilirubinemia resolved Hyponatremia resolved Chronic diastolic (congestive) heart failure chronic COPD (chronic obstructive pulmonary disease) chronic Essential (primary) hypertension chronic Obstructive sleep apnea rn cvicu sydni Paroxysmal atrial fibrillation chronic Hyponatremia resolved UTI (urinary tract infection) acute Left knee pain acute Osteoarthritis of left knee acute [facility] Work Phone: evaluation note* Diagnosis Onset Date Resolution Status Obesity (BMI 30-39.9) acute Osteoarthritis of left knee acute Atherosclerotic heart diseas e of viejas coronary artery without angina pectoris chronic COPD (chronic obstructive pulmonary disease) chronic Essential (primary) hypertension chronic Hyperlipidemia chronic Paroxysmal atrial fibrillation chronic Chronic diastolic (congestive) heart failure chronic Essential (primary) hypertension chronic History of coronary artery stent placement July chronic Hyperlipidemia chronic Paroxysmal atrial fibrillation chronic 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 colon cancer acute Personal history of colonic polyps acute Yeast dermatitis acute Hematuria acute Tinea corporis acute UTI (urinary tract infection) acute [facility] Work Phone: Evaluation note* Diagnosis Onset Date Resolution Status Dyspnea on exertion acute Left leg swelling acute Left thigh pain acute senior 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 acute Obesity (BMI 30-39.9) acute COPD (chronic obstructive pulmonary disease) chronic Essential (primary) hypertension chronic History of coronary artery stent placement July chronic Hyperlipidemia chronic Obstructive sleep apnea rn cvicu sydni Paroxysmal atrial fibrillation chronic Chronic diastolic (congestive) heart failure chronic Essential (primary) hypertension chronic History of coronary artery stent placement July chronic Hyperlipidemia chronic Paroxysmal atrial fibrillation chronic [facility] Work Phone: Evaluation note* Diagnosis Onset Date Resolution Status 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 colon cancer 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 Personal history of colonic polyps acute Left knee pain acute Dyspnea on exertion acute Essential (primary) hypertension chronic History of coronary artery stent placement July chronic Hyperlipidemia [facility] Work Phone: Evaluation note* Diagnosis Onset Date Resolution Status 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 colon cancer 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 Personal history of colonic polyps acute Left knee pain acute Dyspnea on exertion acute Essential (primary) hypertension chronic History of coronary artery stent placement July chronic Hyperlipidemia chronic Influenza vaccine needed acu te [facility] Work Phone: Evaluation note* Diagnosis Onset Date Resolution Status Obesity (BMI 30-39.9) acute Atherosclerotic heart diseas e of viejas coronary artery without angina pectoris chronic Chronic diastolic (congestive) heart failure chronic COPD (chronic obstructive pulmonary disease) chronic Essential (primary) hypertension chronic History of coronary artery stent placement July chronic Hyperlipidemia chronic Obstructive sleep apnea rn cvicu sydni Paroxysmal atrial fibrillation chronic Osteoarthritis of left knee acute Dyspnea on exertion acute Essential (primary) hypertension chronic History of coronary artery stent placement July chronic Hyperlipidemia chronic Declining functional status acute Dyspnea acute Hyperbilirubinemia acute Hyponatremia acute [facility] Work Phone: Evaluation note* Diagnosis Onset Date Resolution Status Declining functional status resolved Dyspnea resolved Hyperbilirubinemia resolved Hyponatremia resolved Chronic diastolic (congestive) heart failure chronic COPD (chronic obstructive pulmonary disease) chronic Essential (primary) hypertension chronic Obstructive sleep apnea rn cvicu sydni Paroxysmal atrial fibrillation chronic Hyponatremia resolved UTI (urinary tract infection) acute Left knee pain acute Osteoarthritis of left knee acute [facility] Work Phone: Reason for referral (narrative)No reason for referral information availableWUniversity [facility] Work Phone: Summary Purpose Family History No Family History Records Found Father Name Dates Details 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 hypertensi on(V17.49, Z82.49) Status:Active Unknown Family Member Name Dates Details 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 hypertensi on: Father(V17.49, Z82.49) Status:Active Unknown Family Member Name Dates Details 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 hypertensi on: Father(V17.49, Z82.49) Status:Active Relationship Condition Age at Onset Recorded Date/T mack Not Specified No pertinent family history Unknown Relationship Condition Age at Onset Recorded Date/T mack Not Specified No pertinent family history Unknown brother Malignant neoplasm of colon Unknown mother Hypertension Unknown father Hypertension Unknown Advance Directives No Advanced Directives Records Found Advance Directive Response Recorded Date/ Time Advance Directives Yes August 17, 2020 8:11am Living Will Yes August 25 3:45pm Power of Weigh And Charge Worker Yes August 25, 2020 3:45pm Advance Directive Response Recorded Date/ Time Advance Directives Yes August 17, 2020 8:11am Living Will Yes January 24, 2022 1 2:32pm Power of Weigh And Charge Worker Yes January 24, 2022 12:32pm Advance Directive Response Recorded Date/ Time Name of Medical Power of Weigh And Charge Worker January 24, 2022 12:32pm Advance Directives Yes August 17, 2020 8:11am Living Will Yes January 24, 2022 1 2:32pm Power of Weigh And Charge Worker Yes January 24, 2022 12:32pm Advance Directive Response Recorded Date/ Time Advance Directives Yes August 17, 2020 7:11am Living Will Yes January 24, 2022 1 1:32am Power of Weigh And Charge Worker Yes January 24, 2022 11:32am Advance Directive Response Recorded Date/ Time Name of Medical Power of Weigh And Charge Worker February 24, 2023 1:53pm Advance Directives Yes August 17, 2020 8:11am Living Will Yes February 24, 2023 1:53pm Power of Weigh And Charge Worker Yes February 24 1:53pm Advance Directive Response Recorded Date/ Time Name of Medical Power of Weigh And Charge Worker February 24, 2023 12:53pm Advance Directives Yes August 17, 2020 7:11am Living Will Yes February 24, 2023 12:53pm Power of Weigh And Charge Worker Yes February 24 12:53pm Advance Directive Response Recorded Date/ Time Name of Medical Power of Weigh And Charge Worker ? September 23, 2023 7:06pm Advance Directives Yes August 17, 2020 7:11am Living Will Yes September 23, 2023 7:06pm Power of Weigh And Charge Worker Yes September 22 7:06pm Advance Directive Response Recorded Date/ Time Advance Directives Yes September 25 4:39pm Living Will Yes September 26, 2023 4:39pm Power of Weigh And Charge Worker Yes September 25 4:39pm Name of Medical Power of Weigh And Charge Worker ? September 23, 2023 8:06pm Advance Directive Response Recorded Date/ Time Living Will Yes April 07, 2024 2:22pm Power of Weigh And Charge Worker Yes March 2:22pm Advance Directives Yes August 9:27am Living Will Yes July 30 9:29pm Power of Weigh And Charge Worker Yes July 30, 2024 9:29pm Name of Medical Power of Weigh And Charge Worker Kayleigh Ceron July 30, 2024 9:29pm Living Will Yes August 18 6:15pm Power of Weigh And Charge Worker Yes August 18, 2024 6:15pm Name of Medical Power of Weigh And Charge Worker August 18, 2024 6:15pm Advance Directive Response Recorded Date/ Time Living Will Yes April 07, 2024 2:22pm Do you have a Healthcare Power of Weigh And Charge Worker? Yes April 07, 2024 2:22pm Advance Directives Yes August 9:27am Living Will Yes July 30 9:29pm Do you have a Healthcare Power of Weigh And Charge Worker? Yes July 30, 2024 9:29pm Name of Medical Power of Weigh And Charge Worker Kayleigh Ceron July 30, 2024 9:29pm Living Will Yes August 18 6:15pm Do you have a Healthcare Power of Weigh And Charge Worker? Yes August 18, 2024 6:15pm Name of Medical Power of Weigh And Charge Worker August 18, 2024 6:15pm Advance Directive Response Recorded Date/ Time Advance Directives Yes August 9:27am Living Will Yes July 30 9:29pm Do you have a Healthcare Power of Weigh And Charge Worker? Yes July 30, 2024 9:29pm Name of Medical Power of Weigh And Charge Worker Kayleigh Ceron July 30, 2024 9:29pm Living Will Yes August 18 6:15pm Do you have a Healthcare Power of Weigh And Charge Worker? Yes August 18, 2024 6:15pm Name of Medical Power of Weigh And Charge Worker August 18, 2024 6:15pm Advance Directive Response Recorded Date/ Time Advance Directives Yes August 9:27am Advance Directive Response Recorded Date/ Time Advance Directives Yes August 9:27am Do you have a Healthcare Power of Weigh And Charge Worker? Yes December 20, 2024 11:00am Hospital Course Note Send Summary: Discharge Summ cruz Providers: Provider RoleProvider Name Malgorzata Wheeler AttendingMalcom Balck PrimarySChuck mccracken Discharge: Summary: Admission Date: .30-May-2020 10:33:00 Discharge Date: 02-Jun-2020 Attending Physician at Discharge: Malcom Black Admission Reason: Shortness of breath Final Discharge Diagnoses: COPD exacerbation, pneumonia Procedures: none Condition at Discharge: Satisfactory Disposition at Discharge: .Home Vital Signs: T PRBPSpO2 [id number]/7292% Date/Time06/01 21: 21: 21: 21: 21:15 Range(36.4C - 36.5C ) (82 - 85 ) (18 - 22 ) (132 - 137 )/ (72 - 82 ) (92% - 94% ) Date: Weight/Scale Type:Height: 30-May-2020 18:53866 kg / iwm379.3 cm Physical Exam: ENMT: He had a crowded oropharynx with no pharyngeal lesions. He had an upper partial dental device Head/Neck: His head was atraumatic and his neck was supple with no thyromegaly. He did have an increased neck circumference Respiratory/Thorax: No wheezing (more content not included)... Chief Complaint Eval redness on legspt here for flu vaccine , lot [id number], exp 01-17-22, [facility] [id number] lt deltoid pt tolerated well Chief Complaint and Reason for Visit Chief Complaint 4 M FU INT LABS Reason for Visit Dyspnea on exertion Fatigue Chronic diastolic (congestive) heart failure Essential (primary) hypertension History of coronary artery stent placement Hyperlipidemia Paroxysmal atrial fibrillation Chief Complaint 4 M FU INT LABS CP *JOSE* CP *JOSE* Reason for Visit Dyspnea on exertion Fatigue Chronic diastolic (congestive) heart failure Essential (primary) hypertension History of coronary artery stent placement Hyperlipidemia Paroxysmal atrial fibrillation Chief Complaint 4 M FU INT LABS CP *JOSE* CP *JOSE* E-ORDER Reason for Visit Dyspnea on exertion Fatigue Chronic diastolic (congestive) heart failure Essential (primary) hypertension History of coronary artery stent placement Hyperlipidemia Paroxysmal atrial fibrillation Chief Complaint 4 M FU INT LABS CP *JOSE* CP *JOSE* E-ORDER 7 M FU 3 M FU CSCOPE W/HISTORY OF POLYPS Rash CONCERN FOR UTI Reason for Visit Dyspnea on exertion Fatigue Chronic diastolic (congestive) heart failure Essential (primary) hypertension History of coronary artery stent placement Hyperlipidemia Paroxysmal atrial fibrillation Obesity (BMI 30-39.9) Osteoarthritis of left knee Atherosclerotic heart disease of viejas coronary artery without angina pectoris COPD (chronic obstructive pulmonary disease) Essential (primary) hypertension Hyperlipidemia Paroxysmal atrial fibrillation Chronic diastolic (congestive) heart failure Essential (primary) hypertension History of coronary artery stent placement Hyperlipidemia Paroxysmal atrial fibrillation 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 colon cancer Personal history of colonic polyps Yeast dermatitis Hematuria Tinea corporis UTI (urinary tract infection) Chief Complaint 7 M FU 3 M FU CSCOPE W/HISTORY OF POLYPS Rash CONCERN FOR UTI Reason for Visit Obesity (BMI 30-39.9 ) Osteoarthritis of left knee Atherosclerotic heart disease of [place] coronary artery without angina pectoris COPD (chronic obstructive pulmonary disease) Essential (primary) hypertension Hyperlipidemia Paroxysmal atrial fibrillation Chronic diastolic (congestive) heart failure Essential (primary) hypertension History of coronary artery stent placement Hyperlipidemia Paroxysmal atrial fibrillation 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 colon cancer Personal history of colonic polyps Yeast dermatitis Hematuria Tinea corporis UTI (urinary tract infection) Chief Complaint 6 M FU LT LEG SWELLING, LT THIGH PAIN 5 MO F/U Reason for Visit Dyspnea on exertion Left leg swelling Left thigh pain senior 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 Obesity (BMI 30-39.9) COPD (chronic obstructive pulmonary disease) Essential (primary) hypertension History of coronary artery stent placement Hyperlipidemia Obstructive sleep apnea Paroxysmal atrial fibrillation Chronic diastolic (congestive) heart failure Essential (primary) hypertension History of coronary artery stent placement Hyperlipidemia Paroxysmal atrial fibrillation Chief Complaint 1 Y FU (MOVED FROM [facility]) LEFT KNEE Xray room 1 6 M FU Yearly C-Scope Rec Recall Letter Reason for Visit Chronic diastolic (c ongestive) heart failure Essential (primary) hypertension History of coronary artery stent placement Hyperlipidemia Paroxysmal atrial fibrillation Cellulitis Osteoarthritis of left knee Osteoarthritis of left knee Atherosclerotic heart disease of viejas coronary artery without angina pectoris Chronic diastolic (congestive) heart failure COPD (chronic obstructive pulmonary disease) Essential (primary) hypertension History of coronary artery stent placement Hyperlipidemia 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 colon cancer 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 Personal history of colonic polyps Chief Complaint Yearly C-Scope Rec R ecall Letter LEFT KNEE 6 M FU Reason for Visit 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 co ligia cancer senior 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 Personal history of colonic polyps Left knee pain Dyspnea on exertion Essential (primary) hypertension History of coronary artery stent placement Hyperlipidemia Chief Complaint Yearly C-Scope Rec R ecall Letter LEFT KNEE 6 M FU Flu Shot DYSPNEA Amb Documentation Reason for Visit 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 co ligia cancer 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 Personal history of colonic polyps Left knee pain Dyspnea on exertion Essential (primary) hypertension History of coronary artery stent placement Hyperlipidemia Influenza vaccine needed Chief Complaint 6 M FU LEFT KNEE 2 M FU SHORTNESS OF BREATH 2/2 ACUTE HRPEF SHORTNESS OF BREATH 2/2 ACUTE HRPEF SHORTNESS OF BREATH 2/2 ACUTE HRPEF SHORTNESS OF BREATH 2/2 ACUTE HRPEF SHORTNESS OF BREATH 2/2 ACUTE HRPEF Reason for Visit Obesity (BMI 30-39.9 ) Atherosclerotic heart disease of viejas coronary artery without angina pectoris Chronic diastolic (congestive) heart failure COPD (chronic obstructive pulmonary disease) Essential (primary) hypertension History of coronary artery stent placement Hyperlipidemia Obstructive sleep apnea Paroxysmal atrial fibrillation Osteoarthritis of left knee Dyspnea on exertion Essential (primary) hypertension History of coronary artery stent placement Hyperlipidemia Declining functional status Dyspnea Hyperbilirubinemia Hyponatremia Chief Complaint LEFT KNEE 2 M FU SHORTNESS OF BREATH 2/2 ACUTE HRPEF SHORTNESS OF BREATH 2/2 ACUTE HRPEF SHORTNESS OF BREATH 2/2 ACUTE HRPEF SHORTNESS OF BREATH 2/2 ACUTE HRPEF SHORTNESS OF BREATH 2/2 ACUTE HRPEF [facility] ER FU E ORDERS CONCERN FOR UTI Reason for Visit Osteoarthritis of le ft knee Dyspnea on exertion Essential (primary) hypertension History of coronary artery stent placement Hyperlipidemia Declining functional status Dyspnea Hyperbilirubinemia Hyponatremia Chronic diastolic (congestive) heart failure COPD (chronic obstructive pulmonary disease) Essential (primary) hypertension Obstructive sleep apnea Paroxysmal atrial fibrillation Hyponatremia UTI (urinary tract infection) Chief Complaint 2 M FU SHORTNESS OF BREATH 2/2 ACUTE HRPEF SHORTNESS OF BREATH 2/2 ACUTE HRPEF SHORTNESS OF BREATH 2/2 ACUTE HRPEF SHORTNESS OF BREATH 2/2 ACUTE HRPEF SHORTNESS OF BREATH 2/2 ACUTE HRPEF [facility] ER FU E ORDERS CONCERN FOR UTI LEFT KNEE E-ORDER Reason for Visit Dyspnea on exertion Essential (primary) hypertension History of coronary artery stent placement Hyperlipidemia Declining functional status Dyspnea Hyperbilirubinemia Hyponatremia Chronic diastolic (congestive) heart failure COPD (chronic obstructive pulmonary disease) Essential (primary) hypertension Obstructive sleep apnea Paroxysmal atrial fibrillation Hyponatremia UTI (urinary tract infection) Left knee pain Osteoarthritis of left knee Chief Complaint SHORTNESS OF BREATH 2/2 ACUTE HRPEF SHORTNESS OF BREATH 2/2 ACUTE HRPEF SHORTNESS OF BREATH 2/2 ACUTE HRPEF SHORTNESS OF BREATH 2/2 ACUTE HRPEF SHORTNESS OF BREATH 2/2 ACUTE HRPEF [facility] ER FU E ORDERS CONCERN FOR UTI LEFT KNEE E-ORDER UTI E ORDER Reason for Visit Declining functional status Dyspnea Hyperbilirubinemia Hyponatremia Chronic diastolic (congestive) heart failure COPD (chronic obstructive pulmonary disease) Essential (primary) hypertension Obstructive sleep apnea Paroxysmal atrial fibrillation Hyponatremia UTI (urinary tract infection) Left knee pain Osteoarthritis of left knee Chief Complaint SHORTNESS OF BREATH 2/2 ACUTE HRPEF SHORTNESS OF BREATH 2/2 ACUTE HRPEF SHORTNESS OF BREATH 2/2 ACUTE HRPEF SHORTNESS OF BREATH 2/2 ACUTE HRPEF SHORTNESS OF BREATH 2/2 ACUTE HRPEF [facility] ER FU E ORDERS CONCERN FOR UTI LEFT KNEE E-ORDER UTI E ORDER E ORDERS Reason for Visit Declining functional status Dyspnea Hyperbilirubinemia Hyponatremia Chronic diastolic (congestive) heart failure COPD (chronic obstructive pulmonary disease) Essential (primary) hypertension Obstructive sleep apnea Paroxysmal atrial fibrillation Hyponatremia UTI (urinary tract infection) Left knee pain Osteoarthritis of left knee Chief Complaint Admit Date 1 M FU June 14, 2024 9:56am LEFT KNEE July 07, 2024 12:43pm COUGH/CONGESTION/COVID EXPOSURE July 12, 2024 10:59am LEFT KNEE July 23, 2024 11 :27am [facility] ER FU July 26, 2024 1: 14pm HYPOXIA RECENT COVID SUPERIMP PNA ATAXIA July 30, 2024 7:01pm HYPOXIA RECENT COVID SUPERIMP PNA ATAXIA July 31, 2024 8:40am HYPOXIA RECENT COVID SUPERIMP PNA ATAXIA August 01, 2024 7:28am HYPOXIA RECENT COVID SUPERIMP PNA ATAXIA August 02, 2024 9:45am HYPOXIA RECENT COVID SUPERIMP PNA ATAXIA August 03, 2024 9:22am [facility] Discharge FU August 09, 2024 1 :58pm LEFT KNEE August 13, 2024 1 0:48am BILAT LEG SWELLING August 18, 2024 2 :11pm SWELLING August 18, 2024 3 :19pm S/P [facility] 08/03/24 August 26, 2024 3 :38pm 2 Wk FU September 06, 2024 12:56pm Urinary tract infection September 11, 2 025 12:33pm Reason for Visit Admit Date Dyspnea on exertion June 14, 2024 9:56am Essential (primary) hypertension Novem r 2023 9:56am History of coronary artery stent placeme nt June 14, 2024 9:56am Hyperlipidemia June 14, 2024 9:56am Osteoarthritis of left knee June 12:43pm Left knee pain July 23, 2024 11 :27am Dyspnea on exertion July 26, 2024 1: 14pm Atherosclerotic heart diseas e of viejas coronary artery without angina pectoris July 26, 2024 1:14pm Chronic diastolic (congestive) heart naina lure July 26, 2024 1:14pm COPD (chronic obstructive pulmonary dise ase) July 26, 2024 1:14pm Essential (primary) hypertension July 26, 2024 1:14pm History of coronary artery stent placeme nt July 26, 2024 1:14pm Ataxia July 30, 2024 7 :01pm Chronic anticoagulation July 30 7:01pm Encephalopathy acute July 30, 2024 7:01pm Atrial fibrillation with normal ventricu lar rate July 30, 2024 7:01pm Hypoxia July 30, 2024 7 :01pm Chronic anticoagulation August 09 1:58pm Hyponatremia August 09, 2024 1 :58pm Atherosclerotic heart diseas e of viejas coronary artery without angina pectoris August 09, 2024 1:58pm Chronic diastolic (congestive) heart naina lure August 09, 2024 1:58pm COPD (chronic obstructive pulmonary dise ase) August 09, 2024 1:58pm History of coronary artery stent placeme nt August 09, 2024 1:58pm Left knee pain August 13, 2024 1 0:48am Osteoarthritis of left knee July 10:48am Bilateral leg edema August 18, 2024 2 :11pm Right leg pain August 18, 2024 2 :11pm Dyspnea on exertion August 26, 2024 3 :38pm Hyponatremia August 26, 2024 3 :38pm Essential (primary) hypertension 2024 3:38pm History of coronary artery stent placeme nt August 26, 2024 3:38pm Hyperlipidemia August 26, 2024 3 :38pm Bilateral leg edema September 06, 2024 12:56pm Dyspnea on exertion September 06, 2024 12:56pm 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 F ebruary 2024 12:56pm Chronic diastolic (congestive) heart naina lure September 06, 2024 12:56pm COPD (chronic obstructive pulmonary dise ase) September 06, 2024 12:56pm Essential (primary) hypertension y 2024 12:56pm History of coronary artery stent placeme nt September 06, 2024 12:56pm Obstructive sleep apnea September 06, 2 025 12:56pm Paroxysmal atrial fibrillation September 06, 2024 12:56pm UTI (urinary tract infection) August 222024 12:33pm Chief Complaint Admit Date LEFT KNEE July 07, 2024 12:43pm COUGH/CONGESTION/COVID EXPOSURE July 12, 2024 10:59am LEFT KNEE July 23, 2024 11 :27am [facility] FU July 26, 2024 1: 14pm HYPOXIA RECENT COVID SUPERIMP PNA ATAXIA July 30, 2024 7:01pm HYPOXIA RECENT COVID SUPERIMP PNA ATAXIA July 31, 2024 8:40am HYPOXIA RECENT COVID SUPERIMP PNA ATAXIA August 01, 2024 7:28am HYPOXIA RECENT COVID SUPERIMP PNA ATAXIA August 02, 2024 9:45am HYPOXIA RECENT COVID SUPERIMP PNA ATAXIA August 03, 2024 9:22am [facility] Discharge FU August 09, 2024 1 :58pm LEFT KNEE August 13, 2024 1 0:48am BILAT LEG SWELLING August 18, 2024 2 :11pm SWELLING August 18, 2024 3 :19pm S/P [facility] 08/03/24 August 26, 2024 3 :38pm 2 Wk FU September 06, 2024 12:56pm Urinary tract infection September 11, 2 025 12:33pm Reason for Visit Admit Date Osteoarthritis of left knee June 12:43pm Left knee pain July 23, 2024 11 :27am Dyspnea on exertion July 26, 2024 1: 14pm Atherosclerotic heart diseas e of viejas coronary artery without angina pectoris July 26, 2024 1:14pm Chronic diastolic (congestive) heart naina lure July 26, 2024 1:14pm COPD (chronic obstructive pulmonary dise ase) July 26, 2024 1:14pm Essential (primary) hypertension July 26, 2024 1:14pm History of coronary artery stent placeme nt July 26, 2024 1:14pm Ataxia July 30, 2024 7 :01pm Chronic anticoagulation July 30 7:01pm Encephalopathy acute July 30, 2024 7:01pm Atrial fibrillation with normal ventricu lar rate July 30, 2024 7:01pm Hypoxia July 30, 2024 7 :01pm Chronic anticoagulation August 09 1:58pm Hyponatremia August 09, 2024 1 :58pm Atherosclerotic heart diseas e of viejas coronary artery without angina pectoris August 09, 2024 1:58pm Chronic diastolic (congestive) heart naina lure August 09, 2024 1:58pm COPD (chronic obstructive pulmonary dise ase) August 09, 2024 1:58pm History of coronary artery stent placeme nt August 09, 2024 1:58pm Left knee pain August 13, 2024 1 0:48am Osteoarthritis of left knee July 10:48am Bilateral leg edema August 18, 2024 2 :11pm Right leg pain August 18, 2024 2 :11pm Dyspnea on exertion August 26, 2024 3 :38pm Hyponatremia August 26, 2024 3 :38pm Essential (primary) hypertension 2024 3:38pm History of coronary artery stent placeme nt August 26, 2024 3:38pm Hyperlipidemia August 26, 2024 3 :38pm Bilateral leg edema September 06, 2024 12:56pm Dyspnea on exertion September 06, 2024 12:56pm senior 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 F ebruary 2024 12:56pm Chronic diastolic (congestive) heart naina lure September 06, 2024 12:56pm COPD (chronic obstructive pulmonary dise ase) September 06, 2024 12:56pm Essential (primary) hypertension y 2024 12:56pm History of coronary artery stent placeme nt September 06, 2024 12:56pm Obstructive sleep apnea September 06, 2 025 12:56pm Paroxysmal atrial fibrillation September 06, 2024 12:56pm UTI (urinary tract infection) August 222024 12:33pm Chief Complaint Admit Date HYPOXIA RECENT COVID SUPERIMP PNA ATAXIA July 30, 2024 7:01pm HYPOXIA RECENT COVID SUPERIMP PNA ATAXIA August 03, 2024 9:22am [facility] Discharge FU August 09, 2024 1 :58pm LEFT KNEE August 13, 2024 1 0:48am BILAT LEG SWELLING August 18, 2024 2 :11pm SWELLING August 18, 2024 3 :19pm S/P [facility] 08/03/24 August 26, 2024 3 :38pm 2 Wk FU September 06, 2024 12:56pm Urinary tract infection September 11, 2 025 12:33pm PREOP November 11, 2024 1:3 1pm LEFT KNEE December 01, 2024 11:17 am Reason for Visit Admit Date Ataxia July 30, 2024 7 :01pm Chronic anticoagulation July 30 7:01pm Encephalopathy acute July 30, 2024 7:01pm Atrial fibrillation with normal ventricu lar rate July 30, 2024 7:01pm Hypoxia July 30, 2024 7 :01pm Chronic anticoagulation August 09 1:58pm Hyponatremia August 09, 2024 1 :58pm Atherosclerotic heart diseas e of viejas coronary artery without angina pectoris August 09, 2024 1:58pm Chronic diastolic (congestive) heart naina lure August 09, 2024 1:58pm COPD (chronic obstructive pulmonary dise ase) August 09, 2024 1:58pm History of coronary artery stent placeme nt August 09, 2024 1:58pm Left knee pain August 13, 2024 1 0:48am Osteoarthritis of left knee July 10:48am Bilateral leg edema August 18, 2024 2 :11pm Right leg pain August 18, 2024 2 :11pm Dyspnea on exertion August 26, 2024 3 :38pm Hyponatremia August 26, 2024 3 :38pm Essential (primary) hypertension 2024 3:38pm History of coronary artery stent placeme nt August 26, 2024 3:38pm Hyperlipidemia August 26, 2024 3 :38pm Bilateral leg edema September 06, 2024 12:56pm Dyspnea on exertion September 06, 2024 12:56pm senior 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 F ebruary 2024 12:56pm Chronic diastolic (congestive) heart naina lure September 06, 2024 12:56pm COPD (chronic obstructive pulmonary dise ase) September 06, 2024 12:56pm Essential (primary) hypertension Februar y 2024 12:56pm History of coronary artery stent placeme nt September 06, 2024 12:56pm Obstructive sleep apnea September 06, 2 025 12:56pm Paroxysmal atrial fibrillation September 06, 2024 12:56pm UTI (urinary tract infection) August 222024 12:33pm Osteoarthritis of left knee December 01 11:17am Chief Complaint Admit Date S/P [facility] 08/03/24 August 26, 2024 3 :38pm 2 Wk FU September 06, 2024 12:56pm Urinary tract infection September 11, 2 025 12:33pm PREOP November 11, 2024 1:3 1pm LEFT KNEE December 01, 2024 11:17 am re-establish- Needs surgery clearance Ma y 2024 2:25pm Reason for Visit Admit Date Dyspnea on exertion August 26, 2024 3 :38pm Hyponatremia August 26, 2024 3 :38pm Essential (primary) hypertension 2024 3:38pm History of coronary artery stent placeme nt August 26, 2024 3:38pm Hyperlipidemia August 26, 2024 3 :38pm Bilateral leg edema September 06, 2024 12:56pm Dyspnea on exertion September 06, 2024 12:56pm senior 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 F ebruary 2024 12:56pm Chronic diastolic (congestive) heart naina lure September 06, 2024 12:56pm COPD (chronic obstructive pulmonary dise ase) September 06, 2024 12:56pm Essential (primary) hypertension 2024 12:56pm History of coronary artery stent placeme nt September 06, 2024 12:56pm Obstructive sleep apnea September 06, 2 025 12:56pm Paroxysmal atrial fibrillation September 06, 2024 12:56pm UTI (urinary tract infection) August 222024 12:33pm Osteoarthritis of left knee December 01 11:17am Shortness of breath December 17, 2024 2:25p m Chronic diastolic (congestive) heart naina lure December 17, 2024 2:25pm Obstructive sleep apnea December 17, 2024 2 :25pm Paroxysmal atrial fibrillation December 17, 2024 2:25pm Chief Complaint Admit Date S/P [facility] 08/03/24 August 26, 2024 3 :38pm 2 Wk FU September 06, 2024 12:56pm Urinary tract infection September 11, 2 025 12:33pm PREOP November 11, 2024 1:3 1pm LEFT KNEE December 01, 2024 11:17 am re-establish- Needs surgery clearance Ma y 2024 2:25pm WEAKNESS December 20, 2024 2:55p m Additional Source Comments (unrecognized sect ion and content) No Status Records FoundNo Status Records FoundNo Status Records FoundNo Status Records FoundNo Status Records FoundNo Status Records FoundNo Status Records Found INFORMATION SOURCE (unrecogn ized section and content) DATE CREATED AUTHOR 07/07/2018 [facility] DATE CREATED AUTHOR AUTHOR'S ORGANIZ ATION 02/11/2019 [facility] DATE CREATED AUTHOR AUTHOR'S ORGANIZ ATION 07/22/2020 [facility] DATE CREATED AUTHOR AUTHOR'S ORGANIZ ATION 04/18/2021 [facility] DATE CREATED AUTHOR AUTHOR'S ORGANIZ ATION 12/29/2023 [facility] DATE CREATED AUTHOR AUTHOR'S ORGANIZ ATION 07/19/2024 [facility] DATE CREATED AUTHOR AUTHOR'S ORGANIZ ATION 12/22/2024 [facility] Goals (unrecognized section and content) Goals may be documented in a n alternate sectionGoals may be documented in an alternate sectionGoals may be documented in an alternate sectionGoals may be documented in an alternate sectionGoals may be documented in an alternate sectionGoals may be documented in an alternate sectionGoals may be documented in an alternate section Care Teams (unrecognized sec tion and content) Team Status: Active Member Role Status Dates Dr. La Woods MD Primary Care Provider Active Team Status: Inactive Member Role Status Dates Dr. La Woods MD Primary Care Provider Active Start: July 30, 2024 End: August 03, 2024 Dr. Ryan Huizar DO Emergency Provider Active Start : July 30, 2024 End: August 03, 2024 Dr. Olivia Meza MD Admit Provider Active St art: July 30, 2024 End: August 03, 2024 Dr. Olivia Meza MD Other Provider Active St art: July 30, 2024 End: August 03, 2024 Dr. Robbie Lowry MD Attending Provider Active Start: July 30, 2024 End: August 03, 2024 Dr. Yayo Esquivel MD Other Provider Active Star t: July 30, 2024 End: August 03, 2024 Team Status: Active Member Role Status Dates Dr. La Woods MD Primary Care Provider Active Start: August 03, 2024 Dr. Ryan Huizar DO Emergency Provider Active Start : August 03, 2024 Dr. Olivia Meza MD Admit Provider Active St art: August 03, 2024 Dr. Olivia Meza MD Other Provider Active St art: August 03, 2024 Dr. Robbie Lowry MD Attending Provider Active Start: August 03, 2024 Dr. Robbie Lowry MD Other Provider Active Sta rt: August 03, 2024 Dr. Yayo Esquivel MD Other Provider Active Star t: August 03, 2024 Team Status: Inactive Member Role Status Dates Dr. La Woods MD Primary Care Provider Active Start: August 09, 2024 End: August 09, 2024 Dr. La Woods MD Attending Provider Active Start: August 09, 2024 End: August 09, 2024 Team Status: Inactive Member Role Status Dates Dr. La Woods MD Primary Care Provider Active Start: August 09, 2024 End: August 09, 2024 Dr. La Woods MD Attending Provider Active Start: August 09, 2024 End: August 09, 2024 Dr. La Woods MD Referring Provider Active Start: August 09, 2024 End: August 09, 2024 Team Status: Inactive Member Role Status Dates Dr. La Woods MD Primary Care Provider Active Start: August 13, 2024 End: August 13, 2024 Dr. La Woods MD Referring Provider Active Start: August 13, 2024 End: August 13, 2024 Dr. Jose Juan Gill DO Attending Provider Active Start: August 13, 2024 End: August 13, 2024 Team Status: Inactive Member Role Status Dates Dr. La Woods MD Primary Care Provider Active Start: August 18, 2024 End: August 18, 2024 Dr. La Woods MD Referring Provider Active Start: August 18, 2024 End: August 18, 2024 Brenden Henderson PA, PA Attending Provider Active Start: August 18, 2024 End: August 18, 2024 Team Status: Inactive Member Role Status Dates Dr. La Woods MD Primary Care Provider Active Start: August 18, 2024 End: August 18, 2024 Dr. Valente Coleman DO Attending Provider Active Start: August 18, 2024 End: August 18, 2024 Dr. Valente Coleman DO Emergency Provider Active Start: August 18, 2024 End: August 18, 2024 Team Status: Inactive Member Role Status Dates Dr. La Woods MD Primary Care Provider Active Start: August 26, 2024 End: August 26, 2024 Dr. La Woods MD Referring Provider Active Start: August 26, 2024 End: August 26, 2024 Robby Peralta [employer]IST[employer] SU[employer], [employer]-C Attending Provider Active S tart: August 26, 2024 End: August 26, 2024 Team Status: Inactive Member Role Status Dates Dr. La Woods MD Primary Care Provider Active Start: September 06, 2024 End: September 06, 2024 Dr. La Woods MD Attending Provider Active Start: September 06, 2024 End: September 06, 2024 Team Status: Inactive Member Role Status Dates Dr. La Woods MD Primary Care Provider Active Start: September 11, 2024 End: September 11, 2024 Dr. La Woods MD Referring Provider Active Start: September 11, 2024 End: September 11, 2024 EDMOND CamaraC Attending Provider Active Start: September 11, 2024 End: September 11, 2024 Team Status: Inactive Member Role Status Dates Dr. La Woods MD Primary Care Provider Active Start: September 13, 2024 End: September 13, 2024 EDMOND CamaraC Attending Provider Active Start: September 13, 2024 End: September 13, 2024 Team Status: Inactive Member Role Status Dates Dr. La Woods MD Primary Care Provider Active Start: September 15, 2024 End: September 15, 2024 Robby Peralta LOGIST[employer] SUPPORT, [employer]IST[employer] SUPPORT-C Attending Provider Active S tart: September 15, 2024 End: September 15, 2024 Robby Peralta [employer]IST[employer] SUPPORT, LOGIST[employer] SU[employer]-C Referring Provider Active S tart: September 15, 2024 End: September 15, 2024 Team Status: Inactive Member Role Status Dates Dr. aL Woods MD Primary Care Provider Active Start: September 28, 2024 End: September 28, 2024 Robby Peralta LOGIST[employer] SUPPORT, LOGIST[employer] SU[employer]-C Attending Provider Active S tart: September 28, 2024 End: September 28, 2024 Team Status: Inactive Member Role Status Dates Dr. La Woods MD Primary Care Provider Active Start: October 07, 2024 End: October 07, 2024 Dr. La Woods MD Attending Provider Active Start: October 07, 2024 End: October 07, 2024 Dr. La Woods MD Referring Provider Active Start: October 07, 2024 End: October 07, 2024 Team Status: Inactive Member Role Status Dates Dr. La Woods MD Primary Care Provider Active Start: October 11, 2024 End: October 11, 2024 Colette Cardenas PA PA Attending Provider Active Start: October 11, 2024 End: October 11, 2024 Colette Cardenas PA, PA Referring Provider Active Start: October 11, 2024 End: October 11, 2024 Team Status: Inactive Member Role Status Dates Dr. La Woods MD Primary Care Provider Active Start: October 18, 2024 End: October 18, 2024 Dr. La Woods MD Attending Provider Active Start: October 18, 2024 End: October 18, 2024 Dr. La Woods MD Referring Provider Active Start: October 18, 2024 End: October 18, 2024 Team Status: Inactive Member Role Status Dates Dr. La Woods MD Primary Care Provider Active Start: October 28, 2024 End: October 28, 2024 Dr. James Murrieta MD Attending Provider Active Start: October 28, 2024 End: October 28, 2024 Dr. James Murrieta MD Referring Provider Active Start: October 28, 2024 End: October 28, 2024 Team Status: Active Member Role Status Dates Dr. La Woods MD Primary Care Provider Active Start: November 11, 2024 End: November 11, 2024 Dr. Liv Anderson MD Attending Provider Active Start: November 11, 2024 End: November 11, 2024 Dr. James Murrieta MD Referring Provider Active Start: November 11, 2024 End: November 11, 2024 Team Status: Inactive Member Role Status Dates Dr. La Woods MD Primary Care Provider Active Start: December 01, 2024 End: December 01, 2024 Dr. La Woods MD Referring Provider Active Start: December 01, 2024 End: December 01, 2024 Dr. Jose Juan Gill DO Attending Provider Active Start: December 01, 2024 End: December 01, 2024 Team Status: Active Member Role Status Dates Dr. Lizandro Mendosa MD Family Provider Active Dr. La Woods MD Primary Care Provider Active Team Status: Inactive Member Role Status Dates Dr. La Woods MD Primary Care Provider, Attendi ng Provider Active Team Status: Inactive Member Role Status Dates Dr. La Woods MD Primary Care Provider, Referri ng Provider Active Dr. Fabio Garcia MD Active Robby Peralta LOGISTICS SUPPORT, LOGISTICS SUPPORT-C Attending Provider Active Team Status: Inactive Member Role Status Dates Dr. La Woods MD Primary Care Provider, Referri ng Provider Active Dr. Jose Juan Gill DO Attending Provider Active Team Status: Inactive Member Role Status Dates Dr. La Woods MD Primary Care Provider Active Dr. Fabio Garcia MD Attending Provider Active Team Status: Inactive Member Role Status Dates Dr. La Woods MD Primary Care Provider Active Dr. Jamarcus Duran MD Attending Provider, Referring Provider Active Team Status: Active Member Role Status Dates Dr. La Woods MD Primary Care Provider Active Dr. Jamarcus Duran MD Attending Provid er, Referring Provider, Other Provider Active Team Status: Inactive Member Role Status Dates Dr. La Woods MD Primary Care Provider, Referri ng Provider Active Robby Peralta LOGISTICS SUPPORT, LOGISTICS SUPPORT-C Attending Provider Active Team Status: Inactive Member Role Status Dates Dr. La Woods MD Primary Care Provider, Referri ng Provider Active Vitor LEMUS, PA Attending Provider Active Team Status: Inactive Member Role Status Dates Dr. La Woods MD Primary Care Provider Active Robby Peralta LOGISTICS SUPPORT, LOGISTICS SUPPORT-C Attending Provider, Referring Pro vider Active Team Status: Active Member Role Status Dates Dr. La Woods MD Primary Care Provider Active Dr. Fabio Garcia MD Attending Provider Active Team Status: Active Member Role Status Dates Dr. La Woods MD Primary Care Provider Active Robby Peralta LOGISTICS SUPPORT, LOGISTICS SUPPORT-C Attending Provider Active Team Status: Active Member Role Status Dates Dr. La Woods MD Primary Care Provider Active Dr. Consuelo Mcclain MD Emergency Provider Active Dr. Lucero Acevedo DO Admit Provider, Att ending Provider, Other Provider Active Team Status: Active Member Role Status Dates Dr. La Woods MD Primary Care Provider Active Dr. Consuelo Mcclain MD Emergency Provider Active Dr. Lucero Acevedo DO Admit Provider, Other Provider Ac tive Dr. Yayo Esquivel MD Other Provider Active Dr. Liv Anderson MD Attending Provider Active Team Status: Active Member Role Status Dates Dr. La Woods MD Primary Care Provider Active Dr. Consuelo Mcclain MD Emergency Provider Active Dr. Lucero Acevedo DO Admit Provider, Other Provider Ac tive Dr. Yayo Esquivel MD Attending Provider, Other Provid er Active Team Status: Inactive Member Role Status Dates Dr. La Woods MD Primary Care Provider Active Dr. Consuelo Mcclain MD Emergency Provider Active Dr. Lucero Acevedo DO Admit Provider, Other Provider Ac tive Dr. Yayo Esquivel MD Attending Provider Active Team Status: Inactive Member Role Status Dates Dr. La Woods MD Primary Care Provider, Referri ng Provider Active ELDA Camara Attending Provider Active Team Status: Inactive Member Role Status Dates Dr. La Woods MD Primary Care Pro vider, Attending Provider, Referring Provider Active Team Status: Active Member Role Status Dates Dr. La Woods MD Primary Care Provider Active Sydnie Lebron NP-C Attending Provider Active Team Status: Inactive Member Role Status Dates Dr. La Woods MD Primary Care Provider Active Sydnie Lebron NP-Bess Attending Provider Active Team Status: Inactive Member Role Status Dates Dr. La Woods MD Primary Care Provider, Referri ng Provider Active Ricardo Sosa MD Attending Provider Active Team Status: Active Member Role Status Dates Dr. La Woods MD Primary Care Provider Active Robby Peralta LOGISTICS SUPPORT, LOGISTICS SUPPORT-C Attending Provider, Referring Pro vider Active Team Status: Inactive Member Role Status Dates Dr. La Woods MD Primary Care Provider Active Start: June 03, 2024 End: June 03, 2024 Robby Peralta LOGISTICS SUPPORT, LOGISTICS SUPPORT-C Attending Provider Active S tart: June 03, 2024 End: June 03, 2024 Robby Peralta LOGISTICS SUPPORT, LOGISTICS SUPPORT-C Referring Provider Active S tart: June 03, 2024 End: June 03, 2024 Team Status: Inactive Member Role Status Dates Dr. La Woods MD Primary Care Provider Active Start: June 14, 2024 End: June 14, 2024 Dr. La Woods MD Referring Provider Active Start: June 14, 2024 End: June 14, 2024 Robby Peralta LOGISTICS SUPPORT, LOGISTICS SUPPORT-C Attending Provider Active S tart: June 14, 2024 End: June 14, 2024 Team Status: Inactive Member Role Status Dates Dr. La Woods MD Primary Care Provider Active Start: July 07, 2024 End: July 07, 2024 Dr. La Woods MD Referring Provider Active Start: July 07, 2024 End: July 07, 2024 Dr. Jose Juan Gill DO Attending Provider Active Start: July 07, 2024 End: July 07, 2024 Team Status: Inactive Member Role Status Dates Dr. La Woods MD Primary Care Provider Active Start: July 12, 2024 End: July 12, 2024 Dr. La Woods MD Referring Provider Active Start: July 12, 2024 End: July 12, 2024 Brenden Henderson PA, PA Attending Provider Active Start: July 12, 2024 End: July 12, 2024 Team Status: Inactive Member Role Status Dates Dr. La Woods MD Primary Care Provider Active Start: July 23, 2024 End: July 23, 2024 Dr. La Woods MD Referring Provider Active Start: July 23, 2024 End: July 23, 2024 Dr. Jose Juan Gill DO Attending Provider Active Start: July 23, 2024 End: July 23, 2024 Team Status: Inactive Member Role Status Dates Dr. La Woods MD Primary Care Provider Active Start: July 26, 2024 End: July 26, 2024 Dr. La Woods MD Attending Provider Active Start: July 26, 2024 End: July 26, 2024 Team Status: Active Member Role Status Dates Dr. La Woods MD Primary Care Provider Active Start: July 31, 2024 Dr. Ryan Huizar DO Emergency Provider Active Start : July 31, 2024 Dr. Olivia Meza MD Admit Provider Active St art: July 31, 2024 Dr. Olivia Meza MD Other Provider Active St art: July 31, 2024 Dr. Yayo Esquivel MD Attending Provider Active Start: July 31, 2024 Dr. Yayo Esquivel MD Other Provider Active Star t: July 31, 2024 Team Status: Active Member Role Status Dates Dr. La Woods MD Primary Care Provider Active Start: July 31, 2024 Dr. Fabio Garcia MD Attending Provider Active S tart: July 31, 2024 Team Status: Active Member Role Status Dates Dr. La Woods MD Primary Care Provider Active Start: August 01, 2024 Dr. Ryan Huizar DO Emergency Provider Active Start : August 01, 2024 Dr. Olivia Meza MD Admit Provider Active St art: August 01, 2024 Dr. Olivia Meza MD Other Provider Active St art: August 01, 2024 Dr. Yayo Esquivel MD Attending Provider Active Start: August 01, 2024 Dr. Yayo Esquivel MD Other Provider Active Star t: August 01, 2024 Team Status: Active Member Role Status Dates Dr. La Woods MD Primary Care Provider Active Start: August 02, 2024 Dr. Ryan Huizar DO Emergency Provider Active Start : August 02, 2024 Dr. Olivia Meza MD Admit Provider Active St art: August 02, 2024 Dr. Olivia Meza MD Other Provider Active St art: August 02, 2024 Dr. Robbie Lowry MD Attending Provider Active Start: August 02, 2024 Dr. Robbie Lowry MD Other Provider Active Sta rt: August 02, 2024 Dr. Yayo Esquivel MD Other Provider Active Star t: August 02, 2024 Team Status: Active Member Role Status Dates Dr. La Woods MD Primary Care Provider Active Start: September 28, 2024 Robby Peralta NP, LOGISTICS SUPPORT-C Attending Provider Active S tart: September 28, 2024 Team Status: Active Member Role Status Dates Dr. La Woods MD Primary Care Provider Active Start: October 07, 2024 Dr. La Woods MD Attending Provider Active Start: October 07, 2024 Dr. La Woods MD Referring Provider Active Start: October 07, 2024 Team Status: Active Member Role Status Dates Dr. La Woods MD Primary Care Provider Active Start: October 11, 2024 Colette LEMUS PA Attending Provider Active Start: October 11, 2024 Colette LEMUS PA Referring Provider Active Start: October 11, 2024 Team Status: Inactive Member Role Status Dates Dr. La Woods MD Primary Care Provider Active Start: December 17, 2024 End: December 17, 2024 Dr. La Woods MD Referring Provider Active Start: December 17, 2024 End: December 17, 2024 Kim Livingston NP, LOGISTICS SUPPORT-C Attending Provider Active Start: December 17, 2024 End: December 17, 2024 Team Status: Active Member Role Status Dates Dr. La Woods MD Primary Care Provider Active Start: December 20, 2024 Dr. Edin Back MD Emergency Provider Active S tart: December 20, 2024 Dr. Lucero Acevedo DO Admit Provider Active Start : December 20, 2024 Dr. Lucero Acevedo DO Attending Provider Active S tart: December 20, 2024 FOR RECORDS PERTAINING TO PATIENTS WHO ARE [...] BE BASED ON THE PRIMARY CLINICAL RECORDS. [employer] provides no warranty or guarantee of the accuracy or completeness of information in this document.
[2024-12-22 23:26] VITALS: BMI 36.8
[2024-12-22] MEDS: Nystatin Powder 15gm Bottle 1 APPLIC TOPICAL (23:29)
[2024-12-23 02:40] VITALS: BP 115/48; PULSE 55; RESP 18; TEMP 36.5; O2SAT 97
[2024-12-23 05:59] LABS: Basophil# 0.08 X10^3/uL; Basophil% 1.1 % (0-1); Eosinophil# 0.37 X10^3/uL; Eosinophils% 5.1 % (0-5); Hemoglobin 13.2 g/dL (13.0-16.5); Lymphocyte % 13.8 % (19-41); Mean Corp Hgb Conc 34.7 g/dL (32-36); Mean Corpuscular Hgb 31.1 pg (27.0-32.0); Mean Corpuscular Volume 89.4 fL (80-94); Mean Platelet Vol. 10.5 fl (6.2-12.0); NRBC Flagged by Analyzer 0 % (0-5); Neutrophil % 68.9 % (47-70); Platelet Count 177 K/mm3 (150-450); RBC Distribution Width SD 42.4 fl (35.1-43.9); Red Blood Count 4.25 M/mm3 (4.6-6.2); White Blood Count 7.3 K/mm3 (4.4-11.0)
[2024-12-23 06:30] LABS: ALB/GLOB Ratio 1.3 RATIO (0.9-2.4); AST(SGOT) 28 U/L (<=37); Alanine Aminotransfer ALT/SGPT 12 U/L (<=46); Albumin, Serum 3.9 g/dL (3.4-4.8); Alkaline Phosphatase 132 U/L (40-129); Anion Gap 13 (5-15); BUN 30 mg/dL (4-19); Calcium,Total 9.1 mg/dL (7.6-11.0); Carbon Dioxide 20.2 mmol/L (21.0-32.0); Chloride 104 mmol/L (98-108); EST Glomerular Filtration Rate 59 (>60); Estimated Creatinine Clearance 52.19 ml/min (50-250); Glucose 102 mg/dL (70-99); Magnesium 1.9 mg/dL (1.5-2.2); Phosphorus 3.3 mg/dL (2.7-4.5); Potassium 4.1 mmol/L (3.3-5.1); Protein, Total 6.9 g/dL (5.9-8.4); Sodium Level 137 mmol/L (133-145); Total Bilirubin 1.31 mg/dL (0.00-1.30)
[2024-12-23] MEDS: Budesonide Respules 0.5 MG/2 ML AMPUL.NEB. INHALATION (06:56)
[2024-12-23] MEDS: Albuterol 2.5 MG/3 ML VIAL.NEB. INHALATION ×2 (06:56→13:19)
[2024-12-23 07:00] VITALS: PULSE 53; RESP 20; O2SAT 97
[2024-12-23] MEDS: Polyethylene Glycol 3350 17 GM PACKET PO (08:12)
[2024-12-23] MEDS: Cholecalciferol (VIT D3) 25 MCG TABLET (1,000 UNITS) PO (08:12)
[2024-12-23 08:13] VITALS: PULSE 61
[2024-12-23] MEDS: Senna/Docusate Sodium 1 Tablet 2 TABLET PO ×2 (08:13→21:00)
[2024-12-23] MEDS: Ascorbic Acid 500 MG Tablet 1000 MG PO (08:13)
[2024-12-23] MEDS: Aspirin E.C. 81 MG Tablet PO (08:13)
[2024-12-23] MEDS: Multivitamin (Healthy Eyes) Capsule 1 CAP PO ×2 (08:13→21:01)
[2024-12-23] MEDS: Metoprolol(XL)Succ 25 MG Tablet PO (08:13)
[2024-12-23] MEDS: Spironolactone 25 MG Tablet PO (08:13)
[2024-12-23] MEDS: APIXABAN 5 MG TABLET PO ×2 (08:13→21:00)
[2024-12-23] MEDS: Methenamine Hippurate 1 GM Tablet PO (08:13)
[2024-12-23] MEDS: Nystatin Powder 15gm Bottle 1 APPLIC TOPICAL ×2 (08:14→21:01)
[2024-12-23] MEDS: Furosemide 40 MG Tablet PO ×2 (08:14→17:31)
[2024-12-23] MEDS: Finasteride 5 MG Tablet PO (08:14)
--- NOTE | 2024-12-23 09:25 | EX.PCM.HP.RE ---
HPI - General General Date of Admission: 12/22/24 Date of Service: 12/23/24 Chief Complaint: POST STROKE DEBILITY HPI Narrative SCARLETT STEVENS, is a 89 YO M with a PMH of PAF, chronic anticoagulation with Eliquis, CAD, KARIS to the mid RCA in July of 2020), HTN, presbycusis, BPH, renal cyst, mild untreated CHUCHO, chronic cough, tobacco dependence in remission, diastolic CHF, diverticulosis, HLD, Hiatal hernia and COPD who presented to the ED at [facility] on 12/20/24 with slurred speech, facial droop and 2 falls on that date. He had not been taking Eliquis since 12/07/24 in preparation for a urologic surgery (TURP). He was also not consistently taking ASA. Stat CT brain showed no acute abnormalities. CTA of the head and neck showed approximately 50% narrowing of the R ICA. An incidental finding was a 2 cm enhancing lesion at the vertex of the calvarium on the left suggestive of a meningioma. He was admitted to the hospitalist service. MRI showed a R frontal lobe small focus of restricted diffusion compatible with an acute infarction. The MRI also showed a interval enlargement and convexity of the pituitary gland suspicious for an underlying lesion. Transthoracic echocardiogram showed severe concentric LV hypertrophy with a mildly reduced left ventricular ejection fraction of 45%. Diastolic dysfunction was present. There was biatrial enlargement. There was mild to moderate tricuspid regurgitation with an elevated left ventricular systolic pressure estimated at 43. Hemoglobin A1c was elevated at 6.0 which is consistent with prediabetes. Total cholesterol was 105 with an LDL of 40 and an HDL of 55. Triglycerides were 47. TSH was 0.395 on 08/01/2024. Teleneurology was consulted and recommended aspirin 81 mg daily until Eliquis was restarted on 12/23/2024. They recommended increasing atorvastatin to high intensity dosing. While on the hospitalist service he was seen by PT/OT/St and acute inpt rehab was recommended at [facility]. He was transferred to the inpt rehab unit at [facility] on 12/22/24 for 3 hours of therapy daily to restore function/independence at or near his level prior to the ischemic CVA. All lab drawn this AM was personally reviewed. CBC is unremarkable. Sodium is 137 and the potassium is 4.1. Serum bicarb is mildly decreased at 20. The BUN is 30 with a creatinine of 1.2 (this is within his baseline) and a GFR of 59. GFR varies between stage IIIa chronic renal failure and stage II chronic renal failure. Phosphorus and magnesium are normal. Total bilirubin is mildly increased at 1.31 but the transaminases are within normal limits. Alk phos is mildly increased at 132. Afebrile Heart rate has varied between 53 and 61 since arrival on rehab. The blood pressure has ranged from 110/65 to 115/48. He has had 2 postvoid residuals and they are 10 and 59. He was seen by Pulmonary on 12/17/24 for evaluation for wheezing. NIOX in the office was negative indicating that the wheezing was not secondary to an inflammatory process that would benefit from steroids. PFTs and a pulmonary stress test were ordered. These have not been done yet. He is to follow up with Pulmonary when these tests have been done. I spoke to his Caitie on the phone and she tells me that she give him his meds. He is mostly sedentary. Was having issues with memory even prior to this stroke. he is up and down at night. He has always been rather irritable at times but, this seems to be increasing. He has been staring at times at home and she wonders if he is hearing her....this has gotten worse since admission to the hospital. Sometimes he has what sounds like a myoclonic jerk. Last stress test was on 09/24/2023 and was negative and the myocardial perfusion appeared to be WNL. Last seen by [facility] in August of 2024. [facility] Medical History (Updated 12/23/24 @ 17:[address] Meagan Johnston, ) Cerebral mass Severe concentric left ventricular hypertrophy Dyspnea on exertion Osteoarthritis of left knee Personal history of colonic polyps 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 colon cancer Left thigh pain Left knee pain Bilateral leg edema Anxiety Osteoporosis Irregular heart beat Coronary artery disease Hypertension Loss of hearing Ambulates with cane Cyst of kidney, acquired Prostate disease Sleep apnea Smokeless tobacco use Former smoker Right leg pain Depression Congestive heart failure (CHF) Atrial fibrillation with normal ventricular rate Hypoxia Cellulitis of leg without foot, left UTI (urinary tract infection) Chest pain Atrial fibrillation Anemia High cholesterol Shortness of breath on exertion History of echocardiogram History of stress test Olecranon bursitis, right elbow Strain of tendon of right rotator cuff Insect bite of hand with infection Wears glasses Wears hearing aid Wears partial dentures Rash Arthritis Chewing tobacco use Non-smoker History of edema Cardiology follow-up encounter Syncope and collapse Persistent atrial fibrillation Epistaxis Chronic diastolic (congestive) heart failure Atherosclerotic heart disease of [place] coronary artery without angina pectoris BPH with urinary obstruction Hyperlipidemia Essential (primary) hypertension Obstructive sleep apnea Hypersomnia Hypoxia Renal cyst Diverticulitis Leg swelling Hiatal hernia COPD (chronic obstructive pulmonary disease) Home Medications ?Medication ?Instructions ?Recorded ?Last Taken ?Type cholecalciferol (vitamin D3) 25 25 mcg PO DAILY SUPPLEMENT 06/27/20 12/22/24 History mcg (1,000 unit) capsule finasteride 5 mg tablet 5 mg PO DAILY PROSTATE 06/03/22 12/22/24 History nitroglycerin 0.4 mg sublingual 0.4 mg sublingual Q5-15M PRN CHEST 10/31/22 Unknown Rx tablet PAIN #25 tabs aspirin 81 mg tablet,delayed 81 mg PO DAILY HEART HEALTH 09/23/23 12/22/24 History release (Adult Aspirin Regimen) vit C 250 mg-vit E 90 mg-zinc 40 1 tab PO BID supplement 06/14/24 12/22/24 History mg-copper 1 [id number] capsule (PreserVision AREDS-2) metoprolol succinate 25 mg 25 mg PO DAILY BLOOD PRESSURE #90 08/26/24 12/22/24 Rx tablet,extended release 24 hr tabs spironolactone 25 mg tablet 25 mg PO DAILY BLOOD PRESSURE #90 08/26/24 12/19/24 Rx tabs albuterol sulfate 2.5 mg/3 mL 2.5 mg (3 mL) inhalation Q4H PRN 09/06/24 12/19/24 Rx (0.083 %) solution for nebulization shortness of breath or wheezing #75 mL apixaban 5 mg tablet (Eliquis) 5 mg PO BID BLOOD THINNER #60 tabs 10/21/24 12/07/24 Rx furosemide 40 mg tablet (Lasix) 40 mg PO BID diuretic #180 tabs 12/02/24 12/22/24 Rx fluticasone 100 mcg-salmeterol 50 1 ea inhalation BID breathing 12/17/24 12/22/24 History mcg/dose blistr powdr for inhalation methenamine hippurate 1 gram tablet 1 g PO QDAY infection 12/17/24 12/22/24 History ascorbic acid (vitamin C) 1,000 mg 1 g PO DAILY vitamin 12/20/24 12/22/24 History capsule atorvastatin 20 mg tablet (Lipitor) 20 mg PO QHS CHOLESTEROL 12/22/24 12/22/24 History Allergy/AdvReac Type Severity Reaction Status Date / Time levofloxacin (From Levaquin) Allergy Rash Verified 12/22/24 17:07 peanut Allergy Itching Verified 12/20/24 15:40 Family History Brother Colon cancer Mother Hypertension Father Hypertension Other No pertinent family history Surgical History History of colonoscopy History of cardiac catheterization History of coronary artery stent placement (08/17/20) History of colonoscopy with polypectomy History of transurethral resection of prostate History of orchiectomy History of cataract surgery Social History (Updated 12/23/24 @ 16:[address] Meagan Johnston DO) household members: spouse number of children: 2 Smoking Status: Former smoker Smokeless tobacco user: chewing tobacco alcohol intake: never substance use type: does not use caffeine: Yes Type: coffee Number of servings: 2 ROS Review of Systems ROS Unobtainable: due to mental status and other Details: hx is very limited due to cognitive dysfunction which is acute on chronic. Constitutional Constitutional: Denies headache(s) Eyes Eyes: Denies change in vision, diplopia or discharge from eye(s) ENT HEENT: Reports abnormal hearing, nasal discharge, rhinorrhea and other Details: BL hearing aids. ; Denies dizziness or neck pain Cardiovascular Cardiovascular: Reports fatigue and pedal edema; Denies abdominal pain, chest pain or orthostatic symptoms Respiratory/Chest Respiratory/Chest: Reports cough Gastrointestinal Gastrointestinal: Denies nausea or vomiting Genitourinary Genitourinary: Denies burning urination Integumentary Integumentary: Reports pruritus and rash Neurologic Neurologic: Reports abnormal speech, behavior changes and confusion; Denies syncope Psychiatric Psychiatric: Reports abnormal sleep pattern, cognitive impairment, difficulty concentrating, irritability and memory loss Vital Signs Vital Signs Vital Signs: 12/22/24 17:06 12/22/24 18:00 12/22/24 20:45 Temperature 97.2 F L 97.2 F L Temperature Source Temporal Temporal Pulse Rate 55 L 55 L Pulse Strength Normal (2+) Respiratory Rate 18 18 Respiratory Effort Respiratory Depth Respiratory Pattern Blood Pressure 110/65 110/65 Blood Pressure Mean 80 80 Blood Pressure Source Monitor Monitor Blood Pressure Position Semi-Fowlers Semi-Fowlers Blood Pressure Location Right Arm Right Arm Pulse Ox 99 99 Oxygen Delivery Method Room Air Room Air 12/22/24 20:45 12/23/24 02:40 12/23/24 07:00 Temperature 97.7 F L Temperature Source Temporal Pulse Rate 55 L 53 L Pulse Strength Respiratory Rate 18 20 H Respiratory Effort Normal Non-Labored Respiratory Depth Normal Respiratory Pattern Normal Normal Blood Pressure 115/48 L Blood Pressure Mean 70 Blood Pressure Source Monitor Blood Pressure Position Semi-Fowlers Blood Pressure Location Right Arm Pulse Ox 97 Oxygen Delivery Method Room Air Room Air 12/23/24 07:00 12/23/24 08:13 12/23/24 09:22 Temperature Temperature Source Pulse Rate 61 Pulse Strength Normal (2+) Respiratory Rate Respiratory Effort Respiratory Depth Respiratory Pattern Blood Pressure Blood Pressure Mean Blood Pressure Source Blood Pressure Position Blood Pressure Location Pulse Ox 97 Oxygen Delivery Method Room Air Weight Weight: 242 lb 11.663 oz Body Mass Index (BMI) 36.8 Indicators for Scoring Admitted with or Primary Diagnosis of CVA/Stroke: Yes Hx of CVA/Stroke: Yes Modified Bridgette Score MRS Score at time of Evaluation: 3-Moderate disability NIHSS NIHSS 1a. Level of Consciousness: 0 - Alert; keenly responsive 1b. LOC Questions: 1 - Answers ONE question correctly 1c. LOC Commands: 0 - Performs BOTH tasks correctly 2. Best Gaze: 0 - Normal 3. Visual: 0 - No visual loss 4. Facial Palsy: 1 - Minor paralysis (flattened nasolabial fold, asymmetry on smiling) 5a. Left Arm: 0 - No drift; arm holds 90 (or 45) degrees for full 10 seconds 5b. Right Arm: 0 - No drift; arm holds 90 (or 45) degrees for full 10 seconds 6a. Left Le - No drift; leg holds 30-degree position for full 5 seconds 6b. Right Le - No drift; leg holds 30-degree position for full 5 seconds 7. Limb Ataxia: 0 - Absent 8. Sensory: 0 - Normal; no sensory loss 9. Best Language: 0 - No aphasia; normal 10. Dysarthria: 1 = [id number] dysarthria; 11. Extinction and Inattention: 0 - No abnormality Total: 3 Stroke Questions Stroke Team Activated: No Physical Exam Const alert Constitutional Narrative: Sitting in the recliner at the bedside. does not appear to be in any distress. Setting off the alarms trying to get up from the chair. He has decreased blink and has the appearance of masked facies. Very slow to answer questions and often not able to answer the questions I ask him. when I asked him if he was having any pain in the abdomen he asked if I was trying to find out if he is . When I went back later to see him and his was present in the room he seemed to be responding to questions quicker and sometimes his inappropriate answers I think are his attempt at being funny. General Appearance: well developed HEENT normocephalic and head/scalp atraumatic HEENT Narrative: Has BL hearing aids. Poor dentition with teeth missing, stained and appears to have caries. No halitosis Eyes PERRL, EOMs intact bilaterally, conjunctivae normal and no scleral icterus Eyes Narrative: No DC from the eyes and no visual field cuts. General Eye: normal appearance of both eyes Visual Acuity: other Other Details: wears eye glasses Neck supple, No nodes and no carotid bruits General: trachea midline Chest Chest: symmetrical chest wall rise Resp normal respiratory effort Resp Narrative: Mildly diminished throughout but, CTA. No cough with deep breathing. Chronic cough with clear thick secretions. Effort and Inspection: able to speak in complete sentences Cardio regular rate, regular rhythm, no murmurs and no gallops Cardio Narrative: Heart sounds are somewhat distant.......may be related to obesity/body habitus. GI GI Narrative: Obese, NT, no masses, normal BS's, not distended. Back/Spine no CVA tenderness Back/Spine Narrative: He has a red reticular type rash on the lower back which he states is pruritic. No vesicles or bullae. No papules. Extremity no calf tenderness Extremity Narrative: TRAE hose are in place. Trace edema of the ankles. No clubbing or cyanosis Skin no jaundice Skin Narrative: rash on the lower back.......described under the back exam General Skin Exam: no breakdown Hair: male pattern alopecia Neuro Neuro Narrative: Alert at times and at others he is just sitting in the chair staring. No tremors. No myoclonic jerks observed. Mild left facial droop (can not see as many teeth on the left side with smiling). Remainder of the cranial nerves are intact. The tongue protrudes on the midline. Pupils are equal, round and reactive to light. Extraocular muscles are intact. No nystagmus. No visual field cuts. Good shoulder shrug bilaterally. Good strength in the upper and lower extremities. Good plantar flexion and extension, equal bilaterally. No sensory deficits. No ataxia. No extinction. Mild dysarthria. Results Lab / Micro Data 12/23/24 05:40 12/23/24 05:40 Labs: Laboratory Results - last 24 hr 12/23/24 05:40: WBC 7.3, RBC 4.25 L, Hgb 13.2, Hct 38.0 L, MCV 89.4, MCH 31.1, MCHC 34.7, RDW Std Deviation 42.4, RDW Coeff of Armani 13.0, Plt Count 177, MPV 10.5, Immature Gran % (Auto) 0.100, Neut % (Auto) 68.9, Lymph % (Auto) 13.8 L, [place] % (Auto) 11.0 H, Eos % (Auto) 5.1 H, Baso % (Auto) 1.1 H, Absolute Neuts (auto) 5.0, Absolute Lymphs (auto) 1.00, Nucleated RBC % 0, Sodium 137, Potassium 4.1, Chloride 104, Carbon Dioxide 20.2 L, Anion Gap 13, BUN 30 H, Creatinine 1.20, Estim Creat Clear Calc 52.19, Est GFR (MDRD) Non-Af 59 L, BUN/Creatinine Ratio 25.0 H, Glucose 102 H, Calcium 9.1, Phosphorus 3.3, Magnesium 1.9, Total Bilirubin 1.31 H, AST 28, ALT 12, Alkaline Phosphatase 132 H, Total Protein 6.9, Albumin 3.9, Globulin 3.0, Albumin/Globulin Ratio 1.3 Assessment & Plan Assessment/Plan (1) Debility: (2) Stroke: QUALIFIERS: CVA mechanism: embolism Precerebral and cerebral artery: unspecified cerebral artery Qualified Code(s): I63.40 - Cerebral infarction due to embolism of unspecified cerebral artery (3) Dysarthria: (4) Cognitive dysfunction: PLAN: acute on chronic (5) Facial droop: PLAN: asymmetric smile (6) Prediabetes: PLAN: HGBA1C is 6% (7) Pituitary gland enlarged: PLAN: Size has increased since his last exam and he has developed a convexity of the gland that suggest mass. (8) Cerebral mass: PLAN: Mass at the vertex on the left........possible meningioma (9) Cardiomyopathy: QUALIFIERS: Cardiomyopathy type: unspecified Qualified Code(s): I42.9 - Cardiomyopathy, unspecified PLAN: Most recent EF is 45% which is down from 55% in July 2024. (10) Severe concentric left ventricular hypertrophy: PLAN: Listed as moderate in July of 2024 and now severe. (11) Biatrial enlargement: (12) Falls: (13) Paroxysmal atrial fibrillation: (14) Chronic anticoagulation: PLAN: On Eliquis chronically..... states recently he had nosebleed and blood in the urine and was told by urology to stop Eliquis and cardiology agreed in preparation for TURP which was ultimately cancelled because of whhezing. (15) Obesity (BMI 30-39.9): PLAN: Weight loss advised. (16) Atherosclerotic heart disease of [place] coronary artery without angina pectoris: QUALIFIERS: [place] vs. transplanted heart: [place] heart Qualified Code(s): I25.10 - Atherosclerotic heart disease of [place] coronary artery without angina pectoris (17) History of coronary artery stent placement: PLAN: July of 2020. Most recent stress in 2023 negative for ischemia (18) Chronic diastolic (congestive) heart failure: (19) Essential (primary) hypertension: (20) Hyperlipidemia: QUALIFIERS: Hyperlipidemia type: unspecified Qualified Code(s): E78.5 - Hyperlipidemia, unspecified (21) COPD (chronic obstructive pulmonary disease): (22) Obstructive sleep apnea: (23) Chronic cough: PLAN: Etiology? PFT's and a pulmonary stress test ordered by Pulmonary. NIOX was negative in the pulmonary office. PLAN: Plan PLAN PT for gait stability OT for ADL's ST for evaluation Analgesics as needed Bowel protocol Fall precautions Assess for Anxiety/Depression GI prophylaxis -not necessary at this time. He denies nausea/vomiting/epigastric pain/heartburn. DVT prophylaxis -starting Eliquis 5 mg p.o. twice daily today. Follow up with PCP, cardiology, pulmonary medicine, Dr. Murrieta following DC from Rehab AM lab including CMP, CBC, Mag and Phos - all personally reviewed. TSH, T4, T3, Prolactin, FSH and LH Cortrosyn stim test in the AM. Check orthostatics. He has a lot of post nasal drainage.......will try him on Atrovent nasal spray DC budesonide since the NIOX was negative in the pulmonary office Change albuterol aerosols to every 4 hours as needed wheezing only Will need to reschedule PFTs and pulmonary stress test when he is discharged from rehab Elective surgery is not recommended for at least 6 weeks poststroke Discontinue aspirin per neurology recommendation since he has now been restarted on Eliquis and the stroke is presumed to be embolic because he was not taking an anticoagulant. Will need MRI of the pituitary as an OP. I suspect he had some cognitive deficit prior to the stroke and it has been exacerbated by the stroke. He intermittently seems to stop and stare and does not respond for a brief period......... absence seizures? will continue to observe. Informed his of TEAM meetings and when his first TEAM meeting would be. Answered her questions. Charges/Coding Visit Charges Inpatient E&M: 63392 Init Hosp L3
--- NOTE | 2024-12-23 10:01 | PCM.RU.PYE ---
Admission Information Primary Diagnosis:: POST STROKE DEBILITY Status Changes from Prescreening?: No changes Identified Actual Problem List:: Falls, Cognitve Impr/Memory Loss, Mobility Impaired, Self Care Deficit, Know.Dfct of Medicaitons, Alteration/ Air Exchange and Alteration-Leisure Activ. Risk of Complications DVT: TRAE Hose and - (Eliquis 5 mg twice daily) Bleeding: Monitor Lab Values, Nursing to Teach Precautions for anti-coagulation therapy., Wound, if applicable, to be assessed every shift. and Stroke patients assessed for lethargy or change in status. Infection: Clinical Staff to Monitor for S/S of infection: and S/S of infection include fever, redness, warmth, etc. Urinary Tract Infection: Monitor for frequency, burning, discomfort, or incontinence. and Nursing will obtain urine sample for urinalysis and C&S when ordered. Aspiration: Clinical staff will monitor for coughing, drooling, congestion., Speech will evaluate swallowing and dsyphasia. and Nursing will monitor patient swallowing during meals. Falls: Patient will be evaluated for Fall Precautions and Patient will be placed on Fall Precautions as indicated per protocol. Skin Breakdown: Nursing will assess skin daily using assessment tool. and Nursing will place on Skin Breakdown Precautions as indicated. Pain: Clinical staff will assess patient's pain level per protocol., Medications will be given, if needed, and the pain level reassessed. and Other methods: Massage, distraction, decrease stimulus, etc. used PRN. Plan of Care Patient requires physician specializing in physical medicine and rehab oversight to provide close medical supervision of rehab issues including: Pain Management, Sleep Problems, Bowel and Bladder, Medical and co-morbidity Management, DVT prophylaxis, Rehabilitation Leadership and Coordination of treatment team Patient needs Physical Therapy: For a minimum of 1 hour and At least 5 out of 7 days Patient needs Physical Therapy to improve:: Mobility, Strengthening, Transfers, Stretching, ROM, Endurance, Stairs, Gait and Balance Patient needs Occupational Therapy: For a minimum of 1 hour and At least 5 out of 7 days Patient needs Occupational Therapy to improve ADL's incl.: Eating, Grooming, Bathing, Dressing, Toileting, Toilet transfers, Community Reintegration, Higher functioning activities, Household tasks, Adaptive Equipment, Splinting and Other activities as determined Patient requires speech therapy: For a minimum of 1 hour and At least 5 out of 7 days Patient requires speech therapy for: Swallowing, Cognition, Language Skills and Compensatory Strategies Patient requires 24/7 Rehabilitation Nursing for: Pain Issues, Identifying and preventing risk factors, Monitoring and reporting current medical conditions, Assisting with ambulation, transfer, and all ADL's, Teaching patients about disease process and medications, Family teaching, Providing safe environment, Bowel and Bladder Issues, Skin integrity and Medication Management Patient needs Financial Services Specialist/ Case Management for: Discharge Planning, Arranging Home Equipment or Services and Family Interventions Patient needs Dietary and Nutrition Services for: Adequate Nutrition, Nutritional Supplements and Nutritional Education Goals Goals Patient will remain: free from falls Patient will perform eating at: MOD I level of assist. Patient will perform bed mobility at: MOD I level of assist. Patient will complete transfers from bed to chair at: MOD I level of assist. Patient will ambulate: - (500 feet with a front wheel walker at supervision) Patient will complete upper body dressing at: MOD I level of assist. Patient will complete lower body dressing at: MOD I level of assist. (Using adaptive equipment as needed) Patient will complete toilet transfer at: MOD I level of assist. Patient will complete toileting at: MOD I level of assist. Patient will perform bathing at: MOD I level of assist. (Upper body bathing independently and lower body bathing at min assist) Patient will perform Tub/Shower transfer at: - (Supervision using DME as needed) Patient will complete grooming at: MOD I level of assist. (While standing at the sink) Patient will complete home management skills at: MOD I level of assist. Patient will achieve: 12 stairs (Ascend/descend up to 12 steps using 1 or 2 handrails at standby assist) Discharge Planning Pt Prognosis for Sig. Practical Improv. w/in Reasonable Time: Good Estimated Length of stay (days): 28 Anticipated D/C Destination: Home with Outpt Therapy Was Preadmission Assessment Accurate?: Yes
[2024-12-23 13:20] VITALS: PULSE 65; RESP 20
[2024-12-23 14:33] VITALS: BMI 36.8
[2024-12-23 15:58] VITALS: BP 105/57; BP 106/55; BP 109/60; PULSE 50; PULSE 51; PULSE 61
[2024-12-23 17:21] LABS: Follicle Stimulating Hormone 10.6 mIU/mL; Luteinizing Hormone 9.8 mIU/mL
[2024-12-23 17:45] VITALS: BP 106/55; PULSE 62; RESP 16; TEMP 36.2; O2SAT 100
[2024-12-23] MEDS: Ipratropium Bromide 0.06% NASAL SPRAY 2 SPRAY NASAL (20:59)
[2024-12-23] MEDS: Hydrocortisone 2.5% Ointment 20 gm tube 1 APPLIC TOPICAL (21:01)
[2024-12-23] MEDS: Atorvastatin Calcium 40 MG Tablet PO (21:01)
[2024-12-24] MEDS: Hydrocortisone 2.5% Ointment 20 gm tube 1 APPLIC TOPICAL ×2 (05:54→23:23)
[2024-12-24 05:55] VITALS: BP 117/63; PULSE 54; RESP 14; TEMP 36.4; O2SAT 96
[2024-12-24] MEDS: Cosyntropin 0.25 MG in 0.9% Normal Saline (Pres. free 4 ML 150 MG IV (05:56)
[2024-12-24 06:00] VITALS: BMI 36.9
--- NOTE | 2024-12-24 06:05 | NURSING ---
LAB NOTIFIED THAT CORTISOL WAS GIVEN AT 0600
[2024-12-24 06:26] LABS: CORTISOL AM 7.39 ug/dL (6.02-18.40)
--- NOTE | 2024-12-24 07:55 | PN_ITS ---
Subjective Subjective Afebrile VSS -blood pressure since arrival on rehab is ranged from 106/55 to 117/63. Heart rate has ranged from 50-65. Maintaining appropriate oxygen saturation on RA Oral intake - FOOD good FLUIDS poor Discussed with nursing - awake most of the night Reviewed the THERAPY notes Medication list reviewed. TSH was normal at 1.73. Free T4 is normal at 1.3. T3 is mildly decreased at 2.0 but the T4 is within normal limits. FSH is 10.6 which is within normal limits. LH is also normal at 9.8. Fasting cortisol this morning was normal at 7.39 and following Cortrosyn it was 16.7. Prolactin level is 12.2 which is normal. Mentation is waxing and waning at times. He only had staring once today when working with OT. Denies CP, lightheadedness, cephalgia, palpitations, N/V/Abd pain and claf tenderness. Objective Data Objective Data Vital Signs: Vital Signs Temp Pulse Resp BP Pulse Ox O2 Del Method 97.6 F L 54 L 14 117/63 96 Room Air 12/24/24 05:55 12/24/24 05:55 12/24/24 05:55 12/24/24 05:55 12/24/24 05:55 12/24/24 05:55 Oxygen Delivery Method Room Air Weight: 242 lb 15.19 oz Body Mass Index (BMI) 36.9 Intake & Output: Intake and Output for Last 24 Hours 12/22/24 12/23/24 12/24/24 23:59 23:59 23:59 Intake Total 120 / 120 870 / 870 355 / 355 Output Total 400 / 400 1225 / 1225 150 / 150 Balance -280 / -280 -355 / -355 205 / 205 Lab / Micro Data 12/23/24 05:40 12/23/24 05:40 Labs: Laboratory Results - last 24 hr 12/23/24 05:40: TSH 1.730, Free T4 1.30, Free T3 pg/dL 2.0 L, FSH 10.6, Luteinizing Hormone 9.8 12/24/24 05:30: Cortisol AM Sample 7.39 12/24/24 06:47: Cortisol AM Sample 16.70 Physical Exam Const alert Resp normal respiratory effort Resp Narrative: Mildly diminished throughout but, CTA. No cough with deep breathing. Chronic cough with clear thick secretions. Effort and Inspection: able to speak in complete sentences Cardio regular rate, regular rhythm, no murmurs and no gallops Cardio Narrative: Heart sounds are somewhat distant.......may be related to obesity/body habitus. GI GI Narrative: Obese, NT, no masses, normal BS's, not distended. 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 transplanted heart: [place] heart Qualified Code(s): I25.10 - Atherosclerotic heart disease of [place] coronary artery without angina pectoris (17) History of coronary artery stent placement: (18) Chronic diastolic (congestive) heart failure: (19) Essential (primary) hypertension: (20) Hyperlipidemia: QUALIFIERS: Hyperlipidemia type: unspecified Qualified Code(s): E 78.5 - Hyperlipidemia, unspecified (21) COPD (chronic obstructive pulmonary disease): QUALIFIERS: COPD type: unspecified COPD Qualified Code(s): J44.9 - Chronic obstructive pulmonary disease, unspecified (22) Obstructive sleep apnea: (23) Chronic cough: PLAN: Plan 1. Continue therapy 2. Overnight trending pulse ox 3. Etiology of staring, unresponsive episodes is not clear. He has also had myoclonic jerks at home........seizure disorder? functional seizures? Will have him follow up with neurology for this post DC from rehab. 4. Suspect he has a pituitary adenoma. Prolactin, TSH, T4, FSH and LH WNL. May need further W/U as an OP. 5. Was scheduled for a TURP but, PVR's are all 10 or less? Charges/Coding Visit Charges Inpatient E&M: 50315 Subs Hosp L1
[2024-12-24] MEDS: Ascorbic Acid 500 MG Tablet 1000 MG PO (08:14)
[2024-12-24 08:15] VITALS: PULSE 54
[2024-12-24] MEDS: Furosemide 40 MG Tablet PO ×2 (08:15→18:51)
[2024-12-24] MEDS: Methenamine Hippurate 1 GM Tablet PO (08:15)
[2024-12-24] MEDS: Finasteride 5 MG Tablet PO (08:15)
[2024-12-24] MEDS: Multivitamin (Healthy Eyes) Capsule 1 CAP PO ×2 (08:15→23:20)
[2024-12-24] MEDS: Cholecalciferol (VIT D3) 25 MCG TABLET (1,000 UNITS) PO (08:15)
[2024-12-24] MEDS: Metoprolol(XL)Succ 25 MG Tablet PO (08:15)
[2024-12-24] MEDS: APIXABAN 5 MG TABLET PO ×2 (08:15→23:20)
[2024-12-24] MEDS: Ipratropium Bromide 0.06% NASAL SPRAY 2 SPRAY NASAL ×2 (08:15→23:20)
[2024-12-24] MEDS: Senna/Docusate Sodium 1 Tablet 2 TABLET PO ×2 (08:16→23:20)
[2024-12-24] MEDS: Nystatin Powder 15gm Bottle 1 APPLIC TOPICAL ×2 (08:16→23:21)
[2024-12-24] MEDS: Polyethylene Glycol 3350 17 GM PACKET PO (08:16)
[2024-12-24 08:30] VITALS: PULSE 64; RESP 20; O2SAT 95
[2024-12-24 10:35] VITALS: BMI 36.9
[2024-12-24 18:00] VITALS: BP 120/73; PULSE 56; RESP 17; TEMP 36.6; O2SAT 98
[2024-12-24 20:01] VITALS: PULSE 61; PULSE 62; RESP 18; O2SAT 98
[2024-12-24 22:40] VITALS: O2SAT 96
[2024-12-24] MEDS: Atorvastatin Calcium 40 MG Tablet PO (23:20)
[2024-12-25 04:07] LABS: PROLACTIN 12.2 ng/mL (3.6-32.0)
[2024-12-25] MEDS: Hydrocortisone 2.5% Ointment 20 gm tube 1 APPLIC TOPICAL ×2 (05:27→22:10)
[2024-12-25 05:50] VITALS: BP 125/69; PULSE 63; RESP 17; TEMP 36.3; O2SAT 97
[2024-12-25 08:17] VITALS: O2SAT 97
[2024-12-25] MEDS: Multivitamin (Healthy Eyes) Capsule 1 CAP PO ×2 (08:17→22:10)
[2024-12-25] MEDS: APIXABAN 5 MG TABLET PO ×2 (08:17→22:10)
[2024-12-25] MEDS: Finasteride 5 MG Tablet PO (08:17)
[2024-12-25] MEDS: Methenamine Hippurate 1 GM Tablet PO (08:17)
[2024-12-25] MEDS: Ipratropium Bromide 0.06% NASAL SPRAY 2 SPRAY NASAL ×2 (08:17→22:10)
[2024-12-25] MEDS: Senna/Docusate Sodium 1 Tablet 2 TABLET PO (08:17)
[2024-12-25] MEDS: Furosemide 40 MG Tablet PO ×2 (08:17→17:42)
[2024-12-25] MEDS: Polyethylene Glycol 3350 17 GM PACKET PO (08:17)
[2024-12-25 08:18] VITALS: PULSE 55
[2024-12-25] MEDS: Nystatin Powder 15gm Bottle 1 APPLIC TOPICAL ×2 (08:18→22:11)
[2024-12-25] MEDS: Cholecalciferol (VIT D3) 25 MCG TABLET (1,000 UNITS) PO (08:18)
[2024-12-25] MEDS: Ascorbic Acid 500 MG Tablet 1000 MG PO (08:18)
[2024-12-25] MEDS: Metoprolol(XL)Succ 25 MG Tablet PO (08:18)
[2024-12-25 08:31] VITALS: BP 101/56; PULSE 55
[2024-12-25 18:00] VITALS: BP 109/74; PULSE 57; RESP 16; TEMP 36.7; O2SAT 97
[2024-12-25 19:33] VITALS: BMI 36.9
[2024-12-25 19:34] VITALS: O2SAT 97
[2024-12-25] MEDS: Atorvastatin Calcium 40 MG Tablet PO (22:10)
[2024-12-25 22:29] VITALS: BMI 36.9
[2024-12-25] MEDS: 0.9% Saline Lock 10 ML Syringe IV (22:35)
[2024-12-26] VITALS (7 sets, daily range): BP systolic 103–118; BP diastolic 56–64; PULSE 55–76; RESP 16–18; TEMP 36.4–37; O2SAT 96–99
[2024-12-26] MEDS: Hydrocortisone 2.5% Ointment 20 gm tube 1 APPLIC TOPICAL ×2 (06:10→22:29)
--- NOTE | 2024-12-26 07:24 | NURSING ---
00:40- SpO2 with 2L while sleeping was 94%.
[2024-12-26] MEDS: Cholecalciferol (VIT D3) 25 MCG TABLET (1,000 UNITS) PO (08:21)
[2024-12-26] MEDS: Ascorbic Acid 500 MG Tablet 1000 MG PO (08:21)
[2024-12-26] MEDS: Ipratropium Bromide 0.06% NASAL SPRAY 2 SPRAY NASAL ×2 (08:21→22:27)
[2024-12-26] MEDS: Senna/Docusate Sodium 1 Tablet 2 TABLET PO ×2 (08:21→22:30)
[2024-12-26] MEDS: Metoprolol(XL)Succ 25 MG Tablet PO (08:22)
[2024-12-26] MEDS: Methenamine Hippurate 1 GM Tablet PO (08:22)
[2024-12-26] MEDS: APIXABAN 5 MG TABLET PO ×2 (08:22→22:28)
[2024-12-26] MEDS: Finasteride 5 MG Tablet PO (08:22)
[2024-12-26] MEDS: Polyethylene Glycol 3350 17 GM PACKET PO (08:22)
[2024-12-26] MEDS: Furosemide 40 MG Tablet PO ×2 (08:22→17:47)
[2024-12-26] MEDS: Multivitamin (Healthy Eyes) Capsule 1 CAP PO ×2 (08:22→22:28)
[2024-12-26] MEDS: Nystatin Powder 15gm Bottle 1 APPLIC TOPICAL ×2 (08:22→22:30)
[2024-12-26] MEDS: Atorvastatin Calcium 40 MG Tablet PO (22:29)
[2024-12-26] MEDS: 0.9% Saline Lock 10 ML Syringe IV (22:57)
--- NOTE | 2024-12-26 23:51 | NURSING ---
at 2347 pulse ox 99% on 2 L nasal canula
[2024-12-27 05:00] VITALS: BMI 36.9
[2024-12-27] MEDS: Hydrocortisone 2.5% Ointment 20 gm tube 1 APPLIC TOPICAL ×2 (05:45→22:47)
[2024-12-27 05:54] VITALS: BP 113/72; PULSE 59; RESP 18; TEMP 36.7; O2SAT 97
[2024-12-27 06:16] VITALS: BP 113/72; PULSE 59; RESP 18; TEMP 36.7; O2SAT 97
[2024-12-27 07:33] VITALS: PULSE 59
[2024-12-27] MEDS: Metoprolol(XL)Succ 25 MG Tablet PO (07:33)
[2024-12-27] MEDS: Senna/Docusate Sodium 1 Tablet 2 TABLET PO ×2 (07:33→22:48)
[2024-12-27] MEDS: Ipratropium Bromide 0.06% NASAL SPRAY 2 SPRAY NASAL ×2 (07:33→22:47)
[2024-12-27] MEDS: Furosemide 40 MG Tablet PO ×2 (07:34→17:34)
[2024-12-27] MEDS: Multivitamin (Healthy Eyes) Capsule 1 CAP PO ×2 (07:34→22:47)
[2024-12-27] MEDS: Nystatin Powder 15gm Bottle 1 APPLIC TOPICAL ×2 (07:34→22:47)
[2024-12-27] MEDS: Methenamine Hippurate 1 GM Tablet PO (07:34)
[2024-12-27] MEDS: Finasteride 5 MG Tablet PO (07:35)
[2024-12-27] MEDS: Ascorbic Acid 500 MG Tablet 1000 MG PO (07:35)
[2024-12-27] MEDS: Cholecalciferol (VIT D3) 25 MCG TABLET (1,000 UNITS) PO (07:35)
[2024-12-27] MEDS: Polyethylene Glycol 3350 17 GM PACKET PO (07:35)
[2024-12-27] MEDS: APIXABAN 5 MG TABLET PO (07:36)
[2024-12-27] MEDS: 0.9% Saline Lock 10 ML Syringe IV ×2 (08:42→22:50)
--- NOTE | 2024-12-27 09:48 | PN_ITS ---
Subjective Subjective Brayan was seen on team rounds today. His Cydney and his dtr Laura were present in the room. All questions were answered to their satisfaction. Afebrile VSS -blood pressure is within goal. Heart rate ranges from 55-61. Maintaining appropriate oxygen saturation on RA Oral intake - FOOD good FLUIDS good Discussed with nursing - Night nursing mentions cough but, day nurses say cough is better than it was prior to the Atrovent nasal spray. Nursing is concerned about the rash on his back but, it is looking much better since the Hydrocortisone cream was ordered. Almost completely resolved. He tends to perseverate on things. Reviewed the THERAPY notes Medication list reviewed. He was not coughing while ST was in room. Deep breathing caused him to cough. Denies CP. Mentation really waxes and wanes. He is having visual hallucinations....today he told me he saw a chicken outside his window.......he was alert at that time and he told his family this. Does not appear to be in any distress. He is complaining of right shoulder pain and tells me that he fell on that shoulder. Family tells me that he has been having food get stuck at times at home.......intermittently. He has been confused at home for some time and he has intermittent episodes of staring and not responding. Objective Data Objective Data Vital Signs: Vital Signs Temp Pulse Resp BP Pulse Ox O2 Del Method O2 Flow Rate 98.0 F 59 L 18 113/72 97 Room Air 2 12/27/24 06:16 12/27/24 07:33 12/27/24 06:16 12/27/24 06:16 12/27/24 06:16 12/27/24 08:44 12/27/24 06:16 FiO2 21 12/24/24 20:01 Oxygen Flow Rate (L/min) 2 Oxygen Delivery Method Room Air Weight: 242 lb 15.19 oz Body Mass Index (BMI) 36.9 Intake & Output: Intake and Output for Last 24 Hours 12/25/24 12/26/24 12/27/24 23:59 23:59 23:59 Intake Total 2140 / 2140 1120 / 1120 630 / 630 Output Total 1999 / 1999 1400 / 1400 250 / 250 Balance 140 / 140 -280 / -280 380 / 380 Lab / Micro Data 12/23/24 05:40 12/23/24 05:40 Physical Exam Const alert Constitutional Narrative: Slow to process thoughts and often answers with a non sequitur. Has been pleasant and cooperative with nursing. Thanked me for seeing him today. Resp normal respiratory effort Resp Narrative: Mildly diminished throughout. Coarse crackles in the bases that cleared somewhat after several deep breaths. No wheezing. Not tachypneic. No labored breathing and no conversational dyspnea. Effort and Inspection: able to speak in complete sentences Cardio regular rate, regular rhythm, no murmurs and no gallops Cardio Narrative: Heart sounds are somewhat distant.......may be related to obesity/body habitus. GI GI Narrative: Obese, NT, no masses, normal BS's, not distended. Extremity no calf tenderness Extremity Narrative: NO obvious deformity of the R shoulder. No bruising and no abrasions. Pain is with movement General Extremity: Negative for edema Skin Wound Narrative: the rash on the lower back is nearly completely resolved. Will continue the cortisone cream for another couple days and then DC. Psych cooperative Assessment & Plan Assessment/Plan (1) Debility: (2) Stroke: QUALIFIERS: CVA mechanism: embolism Precerebral and cerebral artery: unspecified cerebral artery Qualified Code(s): I63.40 - Cerebral infarction due to embolism of unspecified cerebral artery (3) Dysarthria: (4) Cognitive dysfunction: PLAN: I suspect he has underlying dementia and there is exacerbation due to the recent stroke. He is having hallucinations also. LBD? (5) Facial droop: PLAN: minimal (6) Dysphagia: QUALIFIERS: Dysphagia type: unspecified Qualified Code(s): R13.10 - Dysphagia, unspecified (7) Prediabetes: PLAN: HGBA1C is 6% (8) Pituitary gland enlarged: PLAN: TSH, T4, cortisol and prolactin are all normal. No diplopia. I suspect he has a pituitary adenoma. MRI of the pituitary can be done as an OP. 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 (10) Cardiomyopathy: QUALIFIERS: Cardiomyopathy type: unspecified Qualified Code(s): I 42.9 - Cardiomyopathy, unspecified (11) Severe concentric left ventricular hypertrophy: (12) Biatrial enlargement: (13) Falls: PLAN: chronic (14) Paroxysmal atrial fibrillation: (15) Chronic anticoagulation: (16) Obesity (BMI 30-39.9): (17) Atherosclerotic heart disease of [place] coronary artery without angina pectoris: QUALIFIERS: [place] vs. transplanted heart: [place] heart Qualified Code(s): I25.10 - Atherosclerotic heart disease of [place] coronary artery without angina pectoris (18) History of coronary artery stent placement: (19) Chronic diastolic (congestive) heart failure: (20) Essential (primary) hypertension: (21) Hyperlipidemia: QUALIFIERS: Hyperlipidemia type: unspecified Qualified Code(s): E 78.5 - Hyperlipidemia, unspecified (22) COPD (chronic obstructive pulmonary disease): QUALIFIERS: COPD type: unspecified COPD Qualified Code(s): J44.9 - Chronic obstructive pulmonary disease, unspecified (23) Obstructive sleep apnea: (24) Chronic cough: PLAN: Etiology unknown at this time. May be due to chronic aspiration. Await the results of the MBS. PLAN: Plan 1. Continue therapy 2. Compounded arthritis cream to the right shoulder twice daily 3. XRAY of the R shoulder to r/o fracture. 4. Await the results of the MBS. He had an episode over the weekend where is had dysphagia and felt like the food would not go down. He has been a long time user of chewing tobacco. Depending on the results may need to get an upper GI to evaluate the esophagus. 5. Needs follow up with neurology as OP. Other family members have seen Dr. Dee and family would like to follow up with him. This patient has numerous medical comorbidities and work up is beyond the scope of what can be done on acute rehab. I think determining what is causing the dysphagia and choking is important to nail down while he is on rehab. I think he would be a good candidate for palliative care at [facility]. If he has dementia/LBD may not want to pursue further evaluation of the cerebral mass and the pituitary enlargement. Charges/Coding Visit Charges Inpatient E&M: 99811 Subs Hosp L2
[2024-12-27 10:01] VITALS: BMI 36.9
--- NOTE | 2024-12-27 13:00 | RAD_ITS ---
PROCEDURE: SHOULDER MIN 2 VIEWS 12/27/2024 REASON FOR EXAM: PAIN AFTER A FALL TECHNIQUE: 6 view right shoulder series COMPARISON: Right shoulder study of 08/22/2022. RAD/Shoulder min 2 Views IMPRESSION: Progressive, at least moderate, right acromioclavicular joint degenerative ya ges are seen, with significant interval joint space narrowing. Mild degenerative changes also seen about the right humeral head greater tubero sity. The right glenohumeral joint demonstrates minimal degenerative changes. The visualized right hemithorax shows no acute process, and no pneumothorax is seen of the visualized portions of the right lung. No fracture or dislocation is identified. If clinical concern persists, short- term follow-up imaging may be obtained to rule out a currently occult fracture. Reading Location: [address]
--- NOTE | 2024-12-27 13:14 | CASEMGMT ---
Addendum entered by Cary Pérez 12/27/24 14:33: Additional coding was completed and Medicare days changed to 16, resulting in new DC date of 01/07. SW updated pt, and dtr at bedside. Original Note: Social Work IDT met with patient, and dtr for Team meeting. Discussed patient's progress in PT/OT/ST/SN. Educated to Medicare approval of 13 days with DC 01/04. IDT discussed recommendations for DC home - needing 10/02 hands-on care. explained pt may have underlying Lewy Body Dementia. SW educated to hiring caregivers in the home, AL or SNF and OOP cost vs Medicare coverage. Provided resources for nonskilled HHC, AL and SNF with quality and resource data via [employer] Guide. Provided family with SW contact information to discuss DC options. Will ReTeam weekly. SW will continue to follow for DC planning assistance and support. Cary Pérez [employer]IC[employer]
--- NOTE | 2024-12-27 15:59 | SP.MBSS_ITS ---
Modified Barium Swallow Patient Information Study Date: 12/27/24 Study Time: 12:30 Direct Billable Minutes: 135 Total Minutes procedure & reportin Diagnosis: I63.9 - Cerebral infarction Referring Physician: Meagan Johnston Medical History: The patient is an 89 y.o. male with a PMH of PAF (off anticoagulation since 12/07/24 for planned TURP), CAD, HTN, COPD, diastolic CHF, HLD, BPH, renal cyst, mild untreated CHUCHO, chronic cough, tobacco dependence in remission, diverticulosis, presbycusis, and hiatal hernia. He presented to the ED at [facility] on 12/20/24 with slurred speech, facial droop, and two falls. The patient had not been taking Eliquis or ASA consistently. CT brain was negative for acute findings. CTA head/neck showed approximately 50% R ICA stenosis. MRI brain revealed a small acute R frontal lobe infarct. Incidental findings included a 2 cm enhancing calvarial lesion suggestive of meningioma and interval pituitary enlargement concerning for a lesion. The patient was admitted to the hospitalist service and evaluated by PT, OT, and ST. Acute inpatient rehab was recommended at [facility] to address functional deficits related to the CVA. He was transferred to inpatient rehab (IPR) at [facility] on 12/22/24, receiving 3 hrs/day of therapy. ST evaluated the patient?s swallow function at bedside following referral from nursing staff. It was reported that the patient experienced a coughing episode the previous night; however, it is unclear whether this was triggered by ice cream intake or related to his chronic cough. During a therapeutic meal, the [employer] observed worsening clinical signs and symptoms of aspiration, warranting an instrumental swallow study for further assessment. Current Diet Ordered: Soft and Bite Size / Thin Liquids Mental Status: Impaired Respiratory Status: Oxygenating on Room Air Penetration-Aspiration Scale Penetration-Aspiration Scale: OBJECTIVE ASSESSMENT OF SWALLOW FUNCTION (QUANTITATIVE ? PER TRIAL): PENETRATION / ASPIRATION SCALE (LUO): 1 = does not enter airway 2 = enters airway/above vocal folds/ejected 3 = enters airway/above vocal folds/not ejected 4 = enters airway/contacts vocal folds/ejected 5 = enters airway/contacts vocal folds/not ejected 6 = enters airway/below vocal folds/ejected 7 = enters airway/below vocal folds/not ejected despite effort 8 = enters airway/below vocal folds/no effort VIDEOFLOROSCOPIC SCALE SCORE (LUO): Grade I = aspiration of material that has penetrated into the laryngeal vestibule, intact cough reflex Grade II = aspiration < 10 % of the bolus, intact cough reflex Grade III = aspiration of < 10 % of the bolus, reduced cough reflex or aspiration of > 10 % of the bolus, intact cough reflex Grade IV = aspiration of > 10 % of the bolus, reduced cough reflex Penetration-Aspiration Scale Score Thin Liquid via teaspoon: Result: 1= does not enter airway Thin Liquid via teaspoon Trial 2: Result: 1= does not enter airway Thin Liquid via small single sip: cup: Result: 5= enters airways/contacts vocal folds/not ejected Thin Liquid via small single sip: cup Trial 2: Result: 1= does not enter airway Thin Liquid via small single sip: cup Trial 3: Result: 5= enters airways/contacts vocal folds/not ejected Pudding: Result: 1= does not enter airway Thin Liquid via small single sip: cup Trial 4: Result: 2= enter airway/above vocal folds/ejected Pudding Trial 2: Result: 1= does not enter airway Thin Liquid via small single sip: cup Trial 5: Result: 2= enter airway/above vocal folds/ejected Cookie: Result: 1= does not enter airway Thin Liquid via small single sip: cup Trial 6: Result: 5= enters airways/contacts vocal folds/not ejected Thin Liquid via sequential sips: cup: Result: 7= enters airways/below vocal folds/not ejected despite effort Kell Thick Liquid via small single sip: cup: Result: 1= does not enter airway Kell Thick Liquid via small single sip: cup Trial 2: Result: 1= does not enter airway Honey Thick Liquid: Result: 1= does not enter airway Thin Liquid via small single sip: cup Trial 7: Result: 1= does not enter airway Oral Phase Labial Seal: No Labial Escape Tongue Control During Bolus Hold: Cohesive bolus between tongue to palatal seal Bolus Preparation/Mastication: Disorganized chewing/mashing with solid pieces of bolus unchewed Bolus Transport/Lingual Motion: Slowed tongue motion Oral Residue: Residue collection on oral structures Pharyngeal Phase Initiation of Pharyngeal Swallow: Bolus head at posterior laryngeal surgace of epiglottis Soft Palate Elevation: No bolus between soft palate and pharyngeal wall Laryngeal Elevation: Partial superior movement thyroid cart/partial apprx aryt- epig petiole Anterior Hyoid Excursion: Partial anterior movement Epiglottic Movement: Partial inversion Laryngeal Vestibule Closure at Height of Swallow: Incomplete; narrow column of air/contrast in laryngeal vestibule Pharyngeal Stripping Wave: Present - diminished Pharyngoesophageal Segment Opening: Parital distension and partial duration; parital obstruction of flow Tongue Base Retraction: Wide column of contrast between tongue base & post. 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 Oral phase deficits include very slow anterior-posterior transit across all consistencies and piecemeal deglutition. Oral residue is present post-swallow; the patient occasionally clears this independently but often requires verbal cues. Piecemeal deglutition was observed across all consistencies. Aspiration occurred once with thin liquids taken sequentially by cup, accompanied by a cough response. Penetration to the level of the vocal cords was also noted with thin liquids by cup. There was incomplete airway closure characterized by decreased laryngeal elevation and closure during the swallow, along with delayed anterior hyoid excursion and reduced epiglottic inversion. Improved airway protection was observed with single, small sips of thin liquids. Due to cognitive deficits, the patient is unable to consistently follow swallowing commands and requires 24/7 supervision with PO intake. The patient would benefit from nectar-thick liquids, as no penetration or aspiration was observed with these consistencies under fluoroscopy. A significant amount of pharyngeal residue was noted in the pyriform sinuses with all consistencies, including thin liquids. Residue increased with larger sips and thicker viscosities, such as pudding. This pharyngeal residue is attributed to minimal UES opening, decreased pharyngeal stripping wave, and a wide tongue base. Use of double swallows and/or liquid washes somewhat reduced the residue. The patient remains at high risk for post- prandial aspiration due to the significant pharyngeal residue in the pyriform sinuses despite compensatory strategies. The hospitalist, Dr. Johnston, has been consulted and recommended GI intervention. Recommendations Diet: Soft and Bite Sized Textures and Mildly Thick Liquids Comment: Consider implementation of [place] Free Water Protocol Compensatory Strategies: Small Bites, Small Sips, Slow Rate, Multiple Swallows, Alternate bites/solids and sips/liquids, Sitting upright, Remain sitting upright for 30 minutes after PO intake and Assist with verbal cues to use recommended strategies Supervision: 1:1 Direct Supervision Recommend Repeat Modified Barium Swallow: TBD Need for Skilled Speech Therapy Services: Yes Recommended Referrals: GI Consult Education Completed: 1. Described result of evaluation. and 4. Family/caregivers understand evaluation & agree w/ goals & tx plan. Status Active ST Patient: Active Contact Information [facility]:: Jacquelyn Mendes M.A., [facility] Speech-Language Pathologist [facility] [phone]? ?FAX [phone]? [email or web address]? ?[place] [address]
[2024-12-27 18:00] VITALS: BP 116/75; PULSE 59; RESP 18; TEMP 36.6; O2SAT 98
--- NOTE | 2024-12-27 18:46 | EX.PCM.CON.G ---
HPI Consult Data Date of Consult: 12/27/24 HPI Narrative HPI Narrative: SCARLETT STEVENS, is a 89-year-old male presented to the emergency room with complaint of falls, slurred speech and facial droop. Patient was last known normal in the night before. Patient does have a history of paroxysmal atrial fibrillation but had been off of his apixaban since the due to an upcoming urologic procedure. He presented to the hospital and had an MRI that showed a small right frontal lobe infarct. Also noted interval enlargement conductivity of the pituitary gland suspicious for an underlying lesion. Nonemergent pituitary MRI recommended. Patient was seen by neurology and recommend resumption of his apixaban on the fifth and continue with aspirin. He had been having a persistent cough so he underwent evaluation by speech pathologist and he was given a diagnosis of : OROPHARYNGEAL DYSPHAGIA [facility] Medical History Dysphagia Chronic anticoagulation Obesity (BMI 30-39.9) Paroxysmal atrial fibrillation Cerebral mass Severe concentric left ventricular hypertrophy Dyspnea on exertion Osteoarthritis of left knee Personal history of colonic polyps 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 colon cancer Left thigh pain Left knee pain Bilateral leg edema Anxiety Osteoporosis Irregular heart beat Coronary artery disease Hypertension Loss of hearing Ambulates with cane Cyst of kidney, acquired Prostate disease Sleep apnea Smokeless tobacco use Former smoker Right leg pain Depression Congestive heart failure (CHF) Atrial fibrillation with normal ventricular rate Hypoxia Cellulitis of leg without foot, left UTI (urinary tract infection) Chest pain Atrial fibrillation Anemia High cholesterol Shortness of breath on exertion History of echocardiogram History of stress test Olecranon bursitis, right elbow Strain of tendon of right rotator cuff Insect bite of hand with infection Wears glasses Wears hearing aid Wears partial dentures Rash Arthritis Chewing tobacco use Non-smoker History of edema Cardiology follow-up encounter Syncope and collapse Persistent atrial fibrillation Epistaxis Chronic diastolic (congestive) heart failure Atherosclerotic heart disease of [place] coronary artery without angina pectoris BPH with urinary obstruction Hyperlipidemia Essential (primary) hypertension Obstructive sleep apnea Hypersomnia Hypoxia Renal cyst Diverticulitis Leg swelling Hiatal hernia COPD (chronic obstructive pulmonary disease) Home Medications ?Medication ?Instructions ?Recorded ?Last Taken ?Type cholecalciferol (vitamin D3) 25 25 mcg PO DAILY SUPPLEMENT 06/27/20 12/22/24 History mcg (1,000 unit) capsule finasteride 5 mg tablet 5 mg PO DAILY PROSTATE 06/03/22 12/22/24 History nitroglycerin 0.4 mg sublingual 0.4 mg sublingual Q5-15M PRN CHEST 10/31/22 Unknown Rx tablet PAIN #25 tabs aspirin 81 mg tablet,delayed 81 mg PO DAILY HEART HEALTH 09/23/23 12/22/24 History release (Adult Aspirin Regimen) vit C 250 mg-vit E 90 mg-zinc 40 1 tab PO BID supplement 06/14/24 12/22/24 History mg-copper 1 hg-lptccs-vcztyx capsule (PreserVision AREDS-2) metoprolol succinate 25 mg 25 mg PO DAILY BLOOD PRESSURE #90 08/26/24 12/22/24 Rx tablet,extended release 24 hr tabs spironolactone 25 mg tablet 25 mg PO DAILY BLOOD PRESSURE #90 08/26/24 12/19/24 Rx tabs albuterol sulfate 2.5 mg/3 mL 2.5 mg (3 mL) inhalation Q4H PRN 09/06/24 12/19/24 Rx (0.083 %) solution for nebulization shortness of breath or wheezing #75 mL apixaban 5 mg tablet (Eliquis) 5 mg PO BID BLOOD THINNER #60 tabs 10/21/24 12/07/24 Rx furosemide 40 mg tablet (Lasix) 40 mg PO BID diuretic #180 tabs 12/02/24 12/22/24 Rx fluticasone 100 mcg-salmeterol 50 1 ea inhalation BID breathing 12/17/24 12/22/24 History mcg/dose blistr powdr for inhalation methenamine hippurate 1 gram tablet 1 g PO QDAY infection 12/17/24 12/22/24 History ascorbic acid (vitamin C) 1,000 mg 1 g PO DAILY vitamin 12/20/24 12/22/24 History capsule atorvastatin 20 mg tablet (Lipitor) 20 mg PO QHS CHOLESTEROL 12/22/24 12/22/24 History Allergy/AdvReac Type Severity Reaction Status Date / [facility] Allergy Rash Verified 12/22/24 17:07 peanut Allergy Itching Verified 12/20/24 15:40 Family History Brother Colon cancer Mother Hypertension Father Hypertension Other No pertinent family history Surgical History History of colonoscopy History of cardiac catheterization History of coronary artery stent placement (08/17/20) History of colonoscopy with polypectomy History of transurethral resection of prostate History of orchiectomy History of cataract surgery Social History household members: spouse number of children: 2 Smoking Status: Former smoker Smokeless tobacco user: chewing tobacco alcohol intake: never substance use type: does not use caffeine: Yes Type: coffee Number of servings: 2 ROS Constitutional Constitutional: Denies fatigue, fever(s), poor appetite, weight gain or weight loss Gastrointestinal Gastrointestinal: Denies belching, bloating, change in bowel habits, change in stool character, chewing difficulty, coffee ground emesis, constipation, cramping, diarrhea, dyspepsia, dysphagia, early satiety, excessive flatus, fecal incontinence, heartburn, hematemesis, hematochezia, hemorrhoids, loose stools, melena, nausea, odynophagia, rectal bleeding, tenesmus, vomiting or weight changes Physical Exam Const alert, oriented x3, no apparent distress and healthy appearing General Appearance: cooperative GI normal to inspection, nondistended, normoactive bowel sounds, soft to palpation, non-tender and non-distended Percussion: normal to percussion Rectal Exam: deferred Lab / Micro Data 12/23/24 05:40 12/23/24 05:40 Imaging Radiology Impression Shoulder X-Ray 12/27/24 13:00 IMPRESSION: Progressive, at least moderate, right acromioclavicular joint degenerative changes are seen, with significant interval joint space narrowing. Mild degenerative changes also seen about the right humeral head greater tuberosity. The right glenohumeral joint demonstrates minimal degenerative changes. The visualized right hemithorax shows no acute process, and no pneumothorax is seen of the visualized portions of the right lung. No fracture or dislocation is identified. If clinical concern persists, short-term follow-up imaging may be obtained to rule out a currently occult fracture. Reading Location: [address] Assessment & Plan Assessment/Plan (1) Stroke: QUALIFIERS: CVA mechanism: embolism Precerebral and cerebral artery: unspecified cerebral artery Qualified Code(s): I63.40 - Cerebral infarction due to embolism of unspecified cerebral artery PLAN: Very pleasant 89-year-old gentleman with recent MRI brain showed small right frontal lobe acute infarct. And incidental finding on MRI. Interval enlargement and convexity of the pituitary gland. He also has oropharyngeal dysphagia. He should undergo an upper endoscopy to evaluate his upper GI tract. He was explained alternatives, risk and benefits. He will have an ASA of 3. (2) Pituitary lesion: Charges/Coding Visit Charges Inpatient E&M: 80796 Init Hosp L3
[2024-12-27] MEDS: Arthritis Pain Compound 60 CLICK TUBE TOPICAL (22:46)
[2024-12-27] MEDS: Atorvastatin Calcium 40 MG Tablet PO (22:47)
[2024-12-28 00:33] VITALS: PULSE 58; RESP 18; O2SAT 98
[2024-12-28 05:43] VITALS: BP 114/74; PULSE 60; RESP 17; TEMP 36.5; O2SAT 95
[2024-12-28 06:48] VITALS: O2SAT 93
[2024-12-28] MEDS: Ipratropium Bromide 0.06% NASAL SPRAY 2 SPRAY NASAL ×2 (08:27→22:26)
--- NOTE | 2024-12-28 12:06 | PCM.PROGNOTE ---
Subjective Subjective Afebrile VSS -heart rate has ranged from 58-60 over the past 24 hours. Blood pressure has ranged from 113/72 to 116/75. Maintaining appropriate oxygen saturation on RA while awake. Prescribed 2 L of nasal O2 while sleeping for known history of obstructive sleep apnea with desaturation events on overnight trending pulse ox. Oral intake - FOOD refused breakfast today, most of the time he eats well. FLUIDS fair at best Discussed with nursing - no problems that need addressed Reviewed the THERAPY notes Medication list reviewed. Brayan's tells me that he is calling her multiple times a day wondering where she is and why she is not here. When she is here he is not interacting with her much. I think his mentation has likely been declining for quite a while. sometimes he is much more alert and appropriate than at other times. Sometimes he just sits and stares. He has visual hallucinations and sees animals in his room. I reviewed Dr. James's consult. He was going to do an EGD today but, this has been rescheduled for 12/29/24. Brayan denies FAUSTIN, lightheadedness, chest pain, shortness of breath, nausea/vomiting/abdominal pain, dysuria and calf tenderness. Less cough with changes to the diet....... soft and bite-size with nectar thick liquids. Objective Data Objective Data Vital Signs: Vital Signs Temp Pulse Resp BP Pulse Ox O2 Del Method O2 Flow Rate 97.7 F L 60 17 114/74 93 Room Air 2 12/28/24 05:43 12/28/24 05:43 12/28/24 05:43 12/28/24 05:43 12/28/24 06:48 12/28/24 06:48 12/28/24 00:33 FiO2 21 12/24/24 20:01 Oxygen Flow Rate (L/min) 2 Oxygen Delivery Method Room Air Weight: 242 lb 15.19 oz Body Mass Index (BMI) 36.9 Intake & Output: Intake and Output for Last 24 Hours 12/26/24 12/27/24 12/28/24 23:59 23:59 23:59 Intake Total 1120 / 1120 955 / 955 Output Total 1400 / 1400 750 / 750 375 / 375 Balance -280 / -280 205 / 205 -375 / -375 Lab / Micro Data 12/23/24 05:40 12/23/24 05:40 Radiography Diagnostic Testing: Radiology Impression Shoulder X-Ray 12/27/24 13:00 IMPRESSION: Progressive, at least moderate, right acromioclavicular joint degenerative changes are seen, with significant interval joint space narrowing. Mild degenerative changes also seen about the right humeral head greater tuberosity. The right glenohumeral joint demonstrates minimal degenerative changes. The visualized right hemithorax shows no acute process, and no pneumothorax is seen of the visualized portions of the right lung. No fracture or dislocation is identified. If clinical concern persists, short-term follow-up imaging may be obtained to rule out a currently occult fracture. Reading Location: [address] Physical Exam Const alert, oriented x3, no apparent distress and healthy appearing Constitutional Narrative: Slow to process thoughts and often answers with a non sequitur. Has been pleasant and cooperative with nursing. Thanked me for seeing him today. General Appearance: cooperative HEENT normocephalic and head/scalp atraumatic Eyes PERRL, EOMs intact bilaterally, conjunctivae normal and no scleral icterus Eyes Narrative: No DC from the eyes and no visual field cuts. General Eye: normal appearance of both eyes Visual Acuity: other Other Details: wears eye glasses Neck supple, No nodes and no carotid bruits General: trachea midline Chest Chest: symmetrical chest wall rise Resp normal respiratory effort Resp Narrative: Mildly diminished throughout. Coarse crackles in the bases that cleared somewhat after several deep breaths. No wheezing. Not tachypneic. No labored breathing and no conversational dyspnea. Effort and Inspection: able to speak in complete sentences Cardio regular rate, regular rhythm, no murmurs and no gallops Cardio Narrative: Heart sounds are somewhat distant.......may be related to obesity/body habitus. GI normal to inspection, nondistended, normoactive bowel sounds, soft to palpation, non-tender and non-distended GI Narrative: Obese, NT, no masses, normal BS's, not distended. Percussion: normal to percussion Rectal Exam: deferred Back/Spine no CVA tenderness Back/Spine Narrative: He has a red reticular type rash on the lower back which he states is pruritic. No vesicles or bullae. No papules. Extremity no calf tenderness Extremity Narrative: NO obvious deformity of the R shoulder. No bruising and no abrasions. Pain is with movement General Extremity: Negative for edema Skin no jaundice Skin Narrative: rash on the lower back.......described under the back exam General Skin Exam: no breakdown Wound Narrative: the rash on the lower back is nearly completely resolved. Will continue the cortisone cream for another couple days and then DC. Hair: male pattern alopecia Neuro Neuro Narrative: Alert at times and at others he is just sitting in the chair staring. No tremors. No myoclonic jerks observed. Mild left facial droop (can not see as many teeth on the left side with smiling). Remainder of the cranial nerves are intact. The tongue protrudes on the midline. Pupils are equal, round and reactive to light. Extraocular muscles are intact. No nystagmus. No visual field cuts. Good shoulder shrug bilaterally. Good strength in the upper and lower extremities. Good plantar flexion and extension, equal bilaterally. No sensory deficits. No ataxia. No extinction. Mild dysarthria. Psych cooperative Psych Narrative: Has not been agitated with staff and he is polite and talkative. Outgoing with staff. Assessment & Plan Assessment/Plan (1) Debility: (2) Stroke: QUALIFIERS: CVA mechanism: embolism Precerebral and cerebral artery: unspecified cerebral artery Qualified Code(s): I63.40 - Cerebral infarction due to embolism of unspecified cerebral artery (3) Dysarthria: (4) Cognitive dysfunction: PLAN: I suspect he has underlying dementia and there is exacerbation due to the recent stroke. He is having hallucinations also. LBD? (5) Facial droop: PLAN: minimal (6) Dysphagia: QUALIFIERS: Dysphagia type: unspecified Qualified Code(s): R13.10 - Dysphagia, unspecified (7) Cardiomyopathy: QUALIFIERS: Cardiomyopathy type: unspecified Qualified Code(s): I42.9 - Cardiomyopathy, unspecified (8) Severe concentric left ventricular hypertrophy: (9) Biatrial enlargement: (10) Falls: PLAN: chronic (11) Paroxysmal atrial fibrillation: (12) Chronic anticoagulation: (13) Atherosclerotic heart disease of [place] coronary artery without angina pectoris: QUALIFIERS: [place] vs. transplanted heart: [place] heart Qualified Code(s): I25.10 - Atherosclerotic heart disease of [place] coronary artery without angina pectoris (14) Essential (primary) hypertension: (15) Hyperlipidemia: QUALIFIERS: Hyperlipidemia type: unspecified Qualified Code(s): E78.5 - Hyperlipidemia, unspecified (16) COPD (chronic obstructive pulmonary disease): QUALIFIERS: COPD type: unspecified COPD Qualified Code(s): J44.9 - Chronic obstructive pulmonary disease, unspecified (17) Obstructive sleep apnea: (18) Chronic cough: PLAN: Etiology unknown at this time. May be due to chronic aspiration. Await the results of the MBS. PLAN: Plan 1. Continue therapy 2. EGD tomorrow to assess the possible obstruction in the upper esophagus 3. Continue nectar thick liquids with soft/bite-size foods. Charges/Coding Visit Charges Inpatient E&M: 06330 Subs Hosp L1
[2024-12-28 16:26] VITALS: BMI 36.9
[2024-12-28] MEDS: Furosemide 40 MG Tablet PO (17:25)
[2024-12-28 18:00] VITALS: BP 116/70; PULSE 59; RESP 16; TEMP 36.6; O2SAT 97
[2024-12-28] MEDS: Arthritis Pain Compound 60 CLICK TUBE TOPICAL (22:26)
[2024-12-28] MEDS: Senna/Docusate Sodium 1 Tablet 2 TABLET PO (22:27)
[2024-12-28] MEDS: Multivitamin (Healthy Eyes) Capsule 1 CAP PO (22:27)
[2024-12-28] MEDS: Atorvastatin Calcium 40 MG Tablet PO (22:27)
[2024-12-28] MEDS: Nystatin Powder 15gm Bottle 1 APPLIC TOPICAL (22:29)
[2024-12-28] MEDS: 0.9% Saline Lock 10 ML Syringe IV (22:33)
[2024-12-29] VITALS (10 sets, daily range): BP systolic 92–112; BP diastolic 60–78; PULSE 55–67; RESP 12–17; TEMP 35.9–36.6; O2SAT 96–100; BMI 36.9
[2024-12-29] MEDS: Ipratropium Bromide 0.06% NASAL SPRAY 2 SPRAY NASAL ×2 (07:36→21:06)
[2024-12-29] MEDS: Lactated Ringers 1,000 ML 15 ML IV (09:15)
--- NOTE | 2024-12-29 09:18 | NURSING ---
pt left unit for procedure
--- NOTE | 2024-12-29 09:53 | PCM.PRE.AN2 ---
ASA Classification* ASA Classification ASA Classification: 3 Assessment & Plan Anesthesia* Anesthesia Assessment Anesthesia Assessment: Discussed sedation and/or anesthesia options, risks, benefits, and alternatives with patient/parents/legal guardian/POA. Questions invited. The patient/parents/legal guardian/POA seems to understand and agrees to proceed with anesthesia plan. Reviewed the physical assessment, medical history, allergy history and patient home medications list prior to surgery/procedure/anesthetic and documented any changes. Performed airway and anesthesia risk assessments. Anesthesia Type Anesthesia Type: MAC Anesthesia Focused Assessment* Temperature: 97.5 F Pulse Rate: 67 Blood Pressure: 92/78 Respiratory Rate: 16 Pulse Ox: 98 Oxygen Flow Rate (L/min): 2 Fraction of Inspired Oxygen (FIO2): 21 Airway Assessment Mouth opens: >3 cm Mallampati Score: II Labs Anesthesia Preop lab: CBC WBC 7.3 K/mm3 (4.4-11.0) 12/23/24 05:40 12/23/24 RBC 4.25 M/mm3 (4.6-6.2) L 12/23/24 05:40 12/23/24 Hgb 13.2 g/dL (13.0-16.5) 12/23/24 05:40 12/23/24 Hct 38.0 % (40-54) L 12/23/24 05:40 12/23/24 Plt Count 177 K/mm3 (150-450) 12/23/24 05:40 12/23/24 CHEMISTRY Potassium 4.1 mmol/L (3.3-5.1) 12/23/24 05:40 12/23/24 Sodium 137 mmol/L (133-145) 12/23/24 05:40 12/23/24 Magnesium 1.9 mg/dL (1.5-2.2) 12/23/24 05:40 12/23/24 Phosphorus 3.3 mg/dL (2.7-4.5) 12/23/24 05:40 12/23/24 BUN 30 mg/dL (4-19) H 12/23/24 05:40 12/23/24 Creatinine 1.20 mg/dL (0.70-1.20) 12/23/24 05:40 12/23/24 Glucose 102 mg/dL (70-99) H 12/23/24 05:40 12/23/24 TSH 1.730 uIU/mL (0.300-4.200) 12/23/24 05:40 12/23/24 COAG PT 14.5 SECONDS (11.7-14.9) 08/14/20 13:48 08/14/20 Pre-Assessment Diagnosis/Proposed Procedure Planned Operative Procedure(s): EGD Anesthesia History 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 When Was Last Pacemaker Check QUESTION #4 FULL TEXT: You/Your Family Experience fever (hyperthermia) with Anesthesia Last Oral Intake Last Oral intake: Last Oral Intake NPO since Meds taken in AM with sips of water? Meds patient instructed to take am of surgery PONV PONV - deck specialist: PONV - deck specialist Female HX of Motion Sickness HX of N/V After Surgery Non-Smoker Duration of Surgery greater than 60 minutes Number of Risk Factors PONV Score Height & Weight Height & Weight: Anesthesia: Height & Weight Height 5 ft 8 in 12/29/24 09:38 Weight: 110.2 kg 12/29/24 09:38 Body Mass Index (BMI) 36.9 12/29/24 09:38 Respiratory Assessment Respiratory Assessment - deck specialist: Respiratory Tract Infection Hx - deck specialist Hx Respiratory Tract Infection No 11/10/24 10:11 STOP Sleep Apnea STOP Sleep Apnea - deck specialist: STOP Sleep Apnea - deck specialist Hx Hypertension Yes 12/28/24 16:26 Hx Sleep Apnea Yes 12/22/24 17:14 CPAP No 12/22/24 17:14 BIPAP No 12/22/24 17:14 Do you snore loudly (louder than talking or can be heard Do you often feel tired/ fatigued/ sleepy during daytime? Has anyone observed you stop breathing during sleep? STOP Results Positive 12/22/24 17:14 QUESTION #5 FULL TEXT : Do you snore loudly (louder than talking or can be heard through closed doors)? 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 Specify any problems Hx of Preganancy in last 3 N/A 12/22/24 17:14 Months Nurse Filling Out Transfusion [facility] 12/22/24 17:14 & Questions: Date: 12/22/24 12/22/24 17:14 Time: 17:15 12/22/24 17:14 Patient unable to answer at this time (ie. confused, unrespo /Reproduction History /Reproductive History - deck specialist: /Reproductive Hx- deck specialist Hx Now Gestational Age (in weeks): EDC: Hx Hx Para Hx Section SAB No 11/10/24 10:11 Active Medications Active Medications: Current Medications Generic Name Dose Route Start Last Admin Trade Name Freq PRN Reason Stop Dose Admin Acetaminophen 650 mg 12/22/24 17:01 Acetaminophen 325 Mg Tablet PO Q6H PRN PRN Pain Score 1-10 Albuterol Sulfate 2.5 mg 12/22/24 18:20 Albuterol 2.5 Mg/3 Ml Vial.Neb. INHALATION Q4H PRN shortness of breath or wheezing Apixaban 5 mg 12/23/24 10:00 12/27/24 07:36 Apixaban 5 Mg Tablet PO 5 mg BID BETY Administration Ascorbic Acid 1,000 mg 12/23/24 10:00 12/29/24 07:39 Ascorbic Acid 500 Mg Tablet PO Not Given DAILY [facility] Atorvastatin Calcium 40 mg 12/23/24 22:00 12/28/24 22:27 Atorvastatin Calcium 40 Mg Tablet PO 40 mg QHS BETY Administration Cholecalciferol 25 mcg 12/23/24 10:00 12/29/24 07:40 Cholecalciferol (Vit D3) 25 Mcg Tablet (1,000 Units) PO Not Given DAILY [facility] Compound Med 2 click 12/27/24 22:00 12/29/24 07:37 Arthritis Pain Compound 60 Click Tube TOPICAL Not Given BID [facility] Protocol Finasteride 5 mg 12/23/24 10:00 12/29/24 07:39 Finasteride 5 Mg Tablet PO Not Given DAILY [facility] Furosemide 40 mg 12/22/24 22:00 12/29/24 07:37 Furosemide 40 Mg Tablet PO Not Given BIDLX [facility] Protocol Lactated Ringer's 1,000 mls @ 15 mls/hr 12/29/24 09:30 12/29/24 09:46 IV 15 mls/hr .Q48H [facility] Administration Ipratropium [place] 2 spray 12/23/24 22:00 12/29/24 07:36 Ipratropium [place] 0.06% Nasal [place] NASAL 2 spray BID [facility] Administration Magnesium Hydroxide 30 ml 12/22/24 17:01 Magnesium Hydroxide 30 Ml Udc PO X1 PRN Constipation Methenamine Hippurate 1 gm 12/23/24 10:00 12/29/24 07:37 Methenamine Hippurate 1 Gm Tablet PO Not Given DAILY [facility] Metoprolol Succinate 25 mg 12/23/24 10:00 12/29/24 07:39 Metoprolol(Xl)Succ 25 Mg Tablet PO Not Given DAILY [facility] Protocol Multivitamins/Minerals 1 cap 12/22/24 22:00 12/29/24 07:37 Multivitamin (Healthy Eyes) Capsule PO Not Given BID [facility] Nicotine 7 mg 12/27/24 11:45 12/29/24 07:39 Nicotine 7 Mg Patch TD Not Given DAILY [facility] Nitroglycerin 0.4 mg 12/22/24 18:51 Nitroglycerin (Inpatient Use) 0.4 Mg Tab.Subl SL Q5M PRN CARDIAC/CHEST PAIN Nystatin 1 applic 12/22/24 22:00 12/29/24 07:38 Nystatin Powder 15gm Bottle TOPICAL Not Given BID [facility] Protocol Polyethylene Glycol 17 gm 12/23/24 10:00 12/29/24 07:38 Polyethylene Glycol 3350 17 Gm Packet PO Not Given DAILY BETY Senna/Docusate Sodium 2 tablet 12/22/24 22:00 12/29/24 07:39 Senna/Docusate Sodium 1 Tablet PO Not Given BID [facility] Sodium Chloride 10 - 40 ml 12/25/24 19:48 12/28/24 22:33 0.9% Saline Lock 10 Ml Syringe IV 10 ml UD PRN Administration SALINE FLUSH Spironolactone 25 mg 12/23/24 10:00 12/23/24 08:13 Spironolactone 25 Mg Tablet PO 25 mg DAILY [facility] Administration Protocol [facility] Medical History Dysphagia Chronic anticoagulation Obesity (BMI 30-39.9) Paroxysmal atrial fibrillation Cerebral mass Severe concentric left ventricular hypertrophy Dyspnea on exertion Osteoarthritis of left knee Personal history of colonic polyps 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 colon cancer Left thigh pain Left knee pain Bilateral leg edema Anxiety Osteoporosis Irregular heart beat Coronary artery disease Hypertension Loss of hearing Ambulates with cane Cyst of kidney, acquired Prostate disease Sleep apnea Smokeless tobacco use Former smoker Right leg pain Depression Congestive heart failure (CHF) Atrial fibrillation with normal ventricular rate Hypoxia Cellulitis of leg without foot, left UTI (urinary tract infection) Chest pain Atrial fibrillation Anemia High cholesterol Shortness of breath on exertion History of echocardiogram History of stress test Olecranon bursitis, right elbow Strain of tendon of right rotator cuff Insect bite of hand with infection Wears glasses Wears hearing aid Wears partial dentures Rash Arthritis Chewing tobacco use Non-smoker History of edema Cardiology follow-up encounter Syncope and collapse Persistent atrial fibrillation Epistaxis Chronic diastolic (congestive) heart failure 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 Hyperlipidemia Essential (primary) hypertension Obstructive sleep apnea Hypersomnia Hypoxia Renal cyst Diverticulitis Leg swelling Hiatal hernia COPD (chronic obstructive pulmonary disease) Home Medications ?Medication ?Instructions ?Recorded ?Last Taken ?Type cholecalciferol (vitamin D3) 25 25 mcg PO DAILY SUPPLEMENT 06/27/20 12/22/24 History mcg (1,000 unit) capsule finasteride 5 mg tablet 5 mg PO DAILY PROSTATE 06/03/22 12/22/24 History nitroglycerin 0.4 mg sublingual 0.4 mg sublingual Q5-15M PRN CHEST 10/31/22 Unknown Rx tablet PAIN #25 tabs aspirin 81 mg tablet,delayed 81 mg PO DAILY [facility] 09/23/23 12/22/24 History release (Adult Aspirin Regimen) vit C 250 mg-vit E 90 mg-zinc 40 1 tab PO BID supplement 06/14/24 12/22/24 History mg-copper 1 [id number] capsule (PreserVision AREDS-2) metoprolol succinate 25 mg 25 mg PO DAILY BLOOD PRESSURE #90 08/26/24 12/22/24 Rx tablet,extended release 24 hr tabs spironolactone 25 mg tablet 25 mg PO DAILY BLOOD PRESSURE #90 08/26/24 12/19/24 Rx tabs albuterol sulfate 2.5 mg/3 mL 2.5 mg (3 mL) inhalation Q4H PRN 09/06/24 12/19/24 Rx (0.083 %) solution for nebulization shortness of breath or wheezing #75 mL apixaban 5 mg tablet (Eliquis) 5 mg PO BID BLOOD THINNER #60 tabs 10/21/24 12/07/24 Rx furosemide 40 mg tablet (Lasix) 40 mg PO BID diuretic #180 tabs 12/02/24 12/22/24 Rx fluticasone 100 mcg-salmeterol 50 1 ea inhalation BID breathing 12/17/24 12/22/24 History mcg/dose blistr powdr for inhalation methenamine hippurate 1 gram tablet 1 g PO QDAY infection 12/17/24 12/22/24 History ascorbic acid (vitamin C) 1,000 mg 1 g PO DAILY vitamin 12/20/24 12/22/24 History capsule atorvastatin 20 mg tablet (Lipitor) 20 mg PO QHS CHOLESTEROL 12/22/24 12/22/24 History Allergy/AdvReac Type Severity Reaction Status Date / Time levofloxacin (From Levaquin) Allergy Rash Verified 12/22/24 17:07 peanut Allergy Itching Verified 12/20/24 15:40 Family History Brother Colon cancer Mother Hypertension Father Hypertension Other No pertinent family history Surgical History History of colonoscopy History of cardiac catheterization History of coronary artery stent placement (08/17/20) History of colonoscopy with polypectomy History of transurethral resection of prostate History of orchiectomy History of cataract surgery Social History household members: spouse number of children: 2 Smoking Status: Former smoker Smokeless tobacco user: chewing tobacco alcohol intake: never substance use type: does not use caffeine: Yes Type: coffee Number of servings: 2 Review of Systems (Anesthesia) ROS Narrative System reviewed and no additional complaints, except as documented.
--- NOTE | 2024-12-29 10:30 | EGD_PTH ---
PATIENT: SCARLETT STEVENS LOC: RU U#:[id number] AGE/SX: 89/M ROOM: [facility] RE12/22/[address]: Dr. Meagan Johnston DO : 1935 BED: 1 DIS: 01/07/2025 SPEC #: [id number] RECD: 12/29/24 14:37 STATUS: KAYLIN REGuerita #: [id number] JEAN CARLOS: 12/29/24 10:[address]: Chris James DEPT: SURGICAL PATHOLOGY RECD BY: [place] ENTERED: 12/29/24 15:34 SP TYPE: EGD BIOPSY CHESTER DR: DO Dr. Daphne Pearl MD Tissues: A - Esophagus, NOS Procedures: Surgery Specimen Level IV HEADER OPERATION: EGD with biopsy, esophageal dilatation PRE-OP DIAGNOSIS: Dysphagia TISSUE SUBMITTED: A- Random esophagus biopsy MICROSCOPIC DIAGNOSIS A. Esophagus, random, biopsy: * Benign squamous epithelium without active inflammation * Oxynto-cardiac mucosa with slight chronic inflammation * No goblet cell metaplasia is identified MICROSCOPIC DESCRIPTION Slides are reviewed. GROSS DESCRIPTION A. Received in formalin labeled with the patient's name and date of . Designated as random esophagus BX are 4 hyatt soft tissue fragments, <0.1 cm to 0.5 cm, admixed with flocculent material. Entirely submitted in 1 cassette. [facility] 12/29/2024 CPT:30138
--- NOTE | 2024-12-29 11:02 | PCM.PN.BLA ---
Progress Note Patient is for upper endoscopy today. All questions and concerns answered prior to procedure. Physical Exam Const alert, oriented x3, no apparent distress and healthy appearing General Appearance: cooperative GI normal to inspection, nondistended, normoactive bowel sounds, soft to palpation, non-tender and non-distended Percussion: normal to percussion Rectal Exam: deferred Assessment & Plan Assessment/Plan (1) Stroke: QUALIFIERS: CVA mechanism: embolism Precerebral and cerebral artery: unspecified cerebral artery Qualified Code(s): I63.40 - Cerebral infarction due to embolism of unspecified cerebral artery PLAN: Very pleasant 89-year-old gentleman with recent MRI brain showed small right frontal lobe acute infarct. And incidental finding on MRI. Interval enlargement and convexity of the pituitary gland. He also has oropharyngeal dysphagia. He should undergo an upper endoscopy to evaluate his upper GI tract. He was explained alternatives, risk and benefits. He will have an ASA of 3. (2) Pituitary lesion: PLAN: 12/29/2024-further recommendations after patient undergoes upper endoscopy. Visit Charges Inpatient E&M: 23412 Subs Hosp L3
--- NOTE | 2024-12-29 11:30 | OP.EGD_ITS ---
Patient Name: Brayan Rhodes Procedure Date: 12/29/2024 10:14 AM Date of : 1935 Age: 89 Procedure: Upper GI endoscopy Indications: Dysphagia Providers: Chris James DO Referring MD: Kayleigh Johnston Medicines: Monitored Anesthesia Care Patient Profile: This is an 89 year old male. Refer to note in patient chart for documentation of history and physical. Patient has symptoms of acute dysphagia. Complications: No immediate complications. Procedure: Pre-Anesthesia Assessment: - Prior to the procedure, a History and Physical was performed, and patient medications and allergies were reviewed. The patient is competent. The risks and benefits of the procedure and the sedation options and risks were discussed with the patient. All questions were answered and informed consent was obtained. Patient identification and proposed procedure were verified in the pre-procedure area. Mental Status Examination: alert and oriented. Airway Examination: normal oropharyngeal airway and neck mobility. Respiratory Examination: clear to auscultation. CV Examination: normal. Prophylactic Antibiotics: The patient does not require prophylactic antibiotics. Prior Anticoagulants: The patient has taken no anticoagulant or antiplatelet agents except for NSAID medication. ASA Grade Assessment: II - A patient with mild systemic disease. After reviewing the risks and benefits, the patient was deemed in satisfactory condition to undergo the procedure. The anesthesia plan was to use monitored anesthesia care (MAC). Immediately prior to administration of medications, the patient was re-assessed for adequacy to receive sedatives. The heart rate, respiratory rate, oxygen saturations, blood pressure, adequacy of pulmonary ventilation, and response to care were monitored throughout the procedure. The physical status of the patient was re-assessed after the procedure. After obtaining informed consent, the endoscope was passed under direct vision. Throughout the procedure, the patient's blood pressure, pulse, and oxygen saturations were monitored continuously. The gastroscope was introduced through the mouth, and advanced to the second part of duodenum. The upper GI endoscopy was accomplished without difficulty. The patient tolerated the procedure well. 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 Esophageal findings were graded using the Eosinophilic Esophagitis Endoscopic Reference Score (EoE-EREFS) as: Edema Grade 1 Present (decreased clarity or absence of vascular markings), Rings Grade 2 Moderate (distinct rings that do not occlude passage of diagnostic 8-10 mm endoscope), Exudates Grade 1 Mild (scattered white lesions involving less than 10 percent of the esophageal surface area), Furrows Grade 1 Mild (vertical lines without visible depth) and Stricture present. Biopsies were obtained from the proximal and distal esophagus with cold forceps for histology of suspected eosinophilic esophagitis. Verification of patient identification for the specimen was done. Estimated blood loss was minimal. A moderate Schatzki ring was found at the gastroesophageal junction. A guidewire was placed and the scope was withdrawn. Dilation was performed with a Savary dilator with no resistance at 57 Fr. The dilation site was examined and showed moderate mucosal disruption. No gross lesions were noted in the entire examined stomach. No gross lesions were noted in the first portion of the duodenum. 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 - Moderate Schatzki ring. Dilated. - No gross lesions in the entire stomach. - No gross lesions in the first portion of the duodenum. - Biopsies were taken with a cold forceps for evaluation of eosinophilic esophagitis. Recommendation: - [facility]. - Resume previous diet. - Continue present medications. - Await pathology results. Procedure Code(s): --- Professional --- 17113, Esophagogastroduodenoscopy, flexible, transoral; with insertion of guide wire followed by passage of dilator(s) through esophagus over guide wire 35181, 59,51, Esophagogastroduodenoscopy, flexible, transoral; with biopsy, single or multiple CPT copyright 2021 [employer]. All rights reserved. The codes documented in this report are preliminary and upon revenue officer review may be revised to meet current compliance requirements. Chris James DO 12/29/2024 11:29:55 AM This report has been signed electronically. Number of Addenda: 0 Note Initiated On: 12/29/2024 10:14 AM
--- NOTE | 2024-12-29 11:30 | OP.CCLET_ITS ---
12/29/2024 Daphne Woods [facility] [address] [place] [address] Re : Upper GI endoscopy procedure for Brayan Rhodes Dear Dr. Woods This procedure was performed on Sunday, December 29, 2024. 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 - Moderate Schatzki ring. Dilated. - No gross lesions in the entire stomach. - No gross lesions in the first portion of the duodenum. - Biopsies were taken with a cold forceps for evaluation of eosinophilic esophagitis. Recommendations : - [facility]. - Resume previous diet. - Continue present medications. - Await pathology results. My findings are described in the full procedure note, which is enclosed. If I can be of further assistance, please feel free to contact me at . Sincerely, Chris James, 12/29/2024 11:29:55 AM This report has been signed electronically.
--- NOTE | 2024-12-29 11:35 | PCM.POST.ANE ---
Anesthesia: Postop Eval I Current Vital Signs Temperature: 97 F Pulse Rate: 61 Blood Pressure: 99/60 Respiratory Rate: 16 Pulse Ox: 98 Oxygen Delivery Method: Room Air Assessment Airway patent: Yes Spontaneous unlabored respirations: Yes Mental status: Asleep nausea: No Vomiting: No Anesthesia Complication: No Fluid Hydration Crystalloid volume administer (ml): 300 Total IV fluid infused: 300 Progress Note Anesthesia document: Postop Eval 1 completed: Yes
--- NOTE | 2024-12-29 11:56 | PCM.POSTANE2 ---
Anesthesia Postop Eval I Sum Postop Eval Completion status Anesthesia document: Postop Eval 1 completed: Yes Anesthesia Postop Eval I Summary Anesthesia Postop Eval I Summary: Anesthesia Postop Eval I: Assessment Summary Airway patent Yes 12/29/24 11:36 [email or web address] Spontaneous unlabored Yes 12/29/24 11:36 [email or web address] respirations Mental status Asleep 12/29/24 11:36 [email or web address] nausea No 12/29/24 11:36 [email or web address] Vomiting No 12/29/24 11:36 [email or web address] Anesthesia Postop Eval I: Fluid Summary Crystalloid volume administer 300 12/29/24 11:36 [email or web address] (ml) Colloids volume administered ( ml) Blood Product volume administered (ml) Total IV fluid infused 300 12/29/24 11:36 [email or web address] Anesthesia Postop Eval I: Summary Notes Anesthesia Complication No 12/29/24 11:36 [email or web address] Anesthesia Complication Comment: Post-operative progress note Anesthesia: Postop Eval II Evaluation Mental status: Awake Pain Level: 0 nausea: No Vomiting: No
[2024-12-29] MEDS: Furosemide 40 MG Tablet PO (17:00)
[2024-12-29] MEDS: Nystatin Powder 15gm Bottle 1 APPLIC TOPICAL (21:06)
[2024-12-29] MEDS: Arthritis Pain Compound 60 CLICK TUBE TOPICAL (21:06)
[2024-12-29] MEDS: Multivitamin (Healthy Eyes) Capsule 1 CAP PO (21:07)
[2024-12-29] MEDS: Atorvastatin Calcium 40 MG Tablet PO (21:07)
[2024-12-30] VITALS: BP 115/57; PULSE 62; PULSE 76; RESP 16; TEMP 36.6; O2SAT 97; O2SAT 98
[2024-12-30 05:00] VITALS: BMI 36.9
[2024-12-30 06:00] VITALS: BP 115/51; PULSE 76; RESP 16; TEMP 36.6; O2SAT 97
[2024-12-30] MEDS: Ipratropium Bromide 0.06% NASAL SPRAY 2 SPRAY NASAL ×2 (07:44→21:31)
[2024-12-30] MEDS: Furosemide 40 MG Tablet PO ×2 (07:44→17:34)
[2024-12-30] MEDS: Senna/Docusate Sodium 1 Tablet 2 TABLET PO ×2 (07:44→21:32)
[2024-12-30] MEDS: Arthritis Pain Compound 60 CLICK TUBE TOPICAL ×2 (07:44→21:30)
[2024-12-30 07:45] VITALS: PULSE 76
[2024-12-30] MEDS: Multivitamin (Healthy Eyes) Capsule 1 CAP PO ×2 (07:45→21:32)
[2024-12-30] MEDS: Metoprolol(XL)Succ 25 MG Tablet PO (07:45)
[2024-12-30] MEDS: Methenamine Hippurate 1 GM Tablet PO (07:45)
[2024-12-30] MEDS: Finasteride 5 MG Tablet PO (07:45)
[2024-12-30] MEDS: Cholecalciferol (VIT D3) 25 MCG TABLET (1,000 UNITS) PO (07:45)
[2024-12-30] MEDS: Ascorbic Acid 500 MG Tablet 1000 MG PO (07:45)
[2024-12-30] MEDS: Nystatin Powder 15gm Bottle 1 APPLIC TOPICAL ×2 (07:54→20:03)
[2024-12-30] MEDS: 0.9% Saline Lock 10 ML Syringe IV (07:55)
[2024-12-30 15:59] VITALS: BMI 36.9
[2024-12-30 18:00] VITALS: BP 101/64; PULSE 51; RESP 17; TEMP 36.6; O2SAT 97
[2024-12-30] MEDS: Atorvastatin Calcium 40 MG Tablet PO (21:32)
[2024-12-31 06:07] VITALS: BP 115/64; PULSE 60; RESP 16; TEMP 36.6; O2SAT 97; BMI 36.8
[2024-12-31 06:10] LABS: Absolute Neutrophil Count 3.9 X10^3/uL (2.0-7.7); Basophil# 0.09 X10^3/uL; Basophil% 1.4 % (0-1); Eosinophil# 0.35 X10^3/uL; Eosinophils% 5.5 % (0-5); Hematocrit 38.6 % (40-54); Hemoglobin 13.4 g/dL (13.0-16.5); Lymphocyte % 18.8 % (19-41); Mean Corp Hgb Conc 34.7 g/dL (32-36); Mean Corpuscular Hgb 30.9 pg (27.0-32.0); Mean Corpuscular Volume 89.1 fL (80-94); Mean Platelet Vol. 11.1 fl (6.2-12.0); Monocyte# 0.83 X10^3/uL; NRBC Flagged by Analyzer 0 % (0-5); Neutrophil # 3.89 X10^3/uL (2.7-7.7); Platelet Count 176 K/mm3 (150-450); RBC Distribution Width SD 42.4 fl (35.1-43.9); Red Blood Count 4.33 M/mm3 (4.6-6.2); White Blood Count 6.4 K/mm3 (4.4-11.0)
[2024-12-31 07:17] LABS: ALB/GLOB Ratio 1.4 RATIO (0.9-2.4); AST(SGOT) 29 U/L (<=37); Alanine Aminotransfer ALT/SGPT 15 U/L (<=46); Albumin, Serum 3.7 g/dL (3.4-4.8); Alkaline Phosphatase 122 U/L (40-129); Anion Gap 13 (5-15); BUN 33 mg/dL (4-19); BUN/Creat Ratio 27.8 RATIO (10-20); Calcium,Total 9.2 mg/dL (7.6-11.0); Carbon Dioxide 18.7 mmol/L (21.0-32.0); Chloride 107 mmol/L (98-108); Creatinine, Serum 1.19 mg/dL (0.70-1.20); EST Glomerular Filtration Rate 59 (>60); Estimated Creatinine Clearance 52.53 ml/min (50-250); Globulin 2.7 g/dL (2.2-4.2); Glucose 103 mg/dL (70-99); Potassium 4.4 mmol/L (3.3-5.1); Protein, Total 6.5 g/dL (5.9-8.4); Sodium Level 139 mmol/L (133-145)
[2024-12-31 07:18] LABS: Erythrocyte Sedimentation Rate 17 mm/hr (0-20)
[2024-12-31 08:12] VITALS: PULSE 60
[2024-12-31] MEDS: Ascorbic Acid 500 MG Tablet 1000 MG PO (08:12)
[2024-12-31] MEDS: Metoprolol(XL)Succ 25 MG Tablet PO (08:12)
[2024-12-31] MEDS: Finasteride 5 MG Tablet PO (08:12)
[2024-12-31] MEDS: Arthritis Pain Compound 60 CLICK TUBE TOPICAL ×2 (08:13→22:17)
[2024-12-31] MEDS: Cholecalciferol (VIT D3) 25 MCG TABLET (1,000 UNITS) PO (08:13)
[2024-12-31] MEDS: Ipratropium Bromide 0.06% NASAL SPRAY 2 SPRAY NASAL ×2 (08:13→22:18)
[2024-12-31] MEDS: Methenamine Hippurate 1 GM Tablet PO (08:13)
[2024-12-31] MEDS: Furosemide 40 MG Tablet PO ×2 (08:13→18:32)
[2024-12-31] MEDS: Polyethylene Glycol 3350 17 GM PACKET PO (08:13)
[2024-12-31] MEDS: Multivitamin (Healthy Eyes) Capsule 1 CAP PO ×2 (08:13→22:18)
[2024-12-31] MEDS: Nystatin Powder 15gm Bottle 1 APPLIC TOPICAL ×2 (08:19→22:19)
--- NOTE | 2024-12-31 10:30 | CASEMGMT ---
Addendum entered by Cary Pérez 12/31/24 16:18: [facility] not [facility] any beds. Original Note: Social Work SW received call from requesting to schedule family meeting, per Dr. Johnston request. SW first conferred with Dr. Johnston and the goal is to have a meeting where all children can be present, without pt, to discuss pt's new LOC, and how much assistance was providing to pt even prior to the stroke. Recommendations for DC are / care in a facility as is not capable to care for pt at new LOF. SW spoke with to coordinate meeting. Scheduled for 01/04 at 1500. stated she had spoken to [facility] and [facility], and both requested official referrals from SW. SW confirmed that is the proper referral process and explored with her goal for LOC - AL vs SNF. uncertain which would be best for pt. SW explained the facilities decide if they can meet pt's needs in an AL. Both of these facilities have AL, SNF and memory care in their communities, thus pt can be evaluated for each and move to the appropriate LOF as pt's needs change. agreed to sending referrals and facilities can decide. SW explored finances. Pt has resources and can pay privately for several months before needing Medicaid. Pt also have LTC insurance policy that covers over $100/day after the first 30 days. SW educated to to inquire how to liquidate annuity, as that would be the highest resource and what would assist in covering facility cost. expressed understanding. SW will continue to follow. - MIKE sent referrals via [facility] to [facility]. Cary Pérez HAND HIDE STRETCHER [employer]
--- NOTE | 2024-12-31 11:15 | PN_ITS ---
Subjective Subjective Afebrile VSS -blood pressure is within goal with a heart rate over the past 24 hours has ranged from 51-76. Maintaining appropriate oxygen saturation on RA Oral intake - FOOD good FLUIDS highly variable, needs reminding to drink fluids Weight is down 6 pounds since 01/12 Discussed with nursing - no problems that need addressed. Sleeping well at night, cooperative. Not agitated. Reviewed the THERAPY notes Medication list reviewed. All lab drawn this morning was personally reviewed. The white blood cell count is normal at 6.4, hemoglobin is normal at 13.4 and platelets are within normal limits. Sodium is 139 and the potassium is 4.4. BUN is 33 with a stable creatinine at 1.19. Calcium is within normal limits. Bilirubin is now normal at 1 and so is the alkaline phosphatase. Transaminases have always been normal. ESR is normal at 17 and CRP is pending. The esophageal biopsy shows benign squamous epithelium without active inflammation. The gastric cardiac mucosa shows slight chronic inflammation and there is no goblet cell metaplasia identified. Objective Data Objective Data Vital Signs: Vital Signs Temp Pulse Resp BP Pulse Ox O2 Del Method O2 Flow Rate 97.9 F 60 16 115/64 97 Room Air 2 12/31/24 06:07 12/31/24 08:12 12/31/24 06:07 12/31/24 06:07 12/31/24 06:07 12/31/24 06:07 12/30/24 00:00 FiO2 21 12/29/24 09:53 Oxygen Flow Rate (L/min) 2 Oxygen Delivery Method Room Air Weight: 241 lb 13.553 oz Body Mass Index (BMI) 36.8 Intake & Output: Intake and Output for Last 24 Hours 12/29/24 12/30/24 12/31/24 23:59 23:59 23:59 Intake Total 960 / 960 1547.5 / 1547.5 240 / 240 Output Total 827 / 827 500 / 500 450 / 450 Balance 133 / 133 1047.5 / 1047.5 -210 / -210 Lab / Micro Data 12/31/24 04:44 12/31/24 04:44 Labs: Laboratory Results - last 24 hr 12/31/24 04:44: WBC 6.4, RBC 4.33 L, Hgb 13.4, Hct 38.6 L, MCV 89.1, MCH 30.9, MCHC 34.7, RDW Std Deviation 42.4, RDW Coeff of Armani 13.0, Plt Count 176, MPV 11.1, Immature Gran % (Auto) 0.300, Neut % (Auto) 61.0, Lymph % (Auto) 18.8 L, M faith % (Auto) 13.0 H, Eos % (Auto) 5.5 H, Baso % (Auto) 1.4 H, Absolute Neuts (auto) 3.9, Absolute Lymphs (auto) 1.20, Nucleated RBC % 0, ESR 17, Sodium 139, Potassium 4.4, Chloride 107, Carbon Dioxide 18.7 L, Anion Gap 13, BUN 33 H, Creatinine 1.19, Estim Creat Clear Calc 52.53, Est GFR (MDRD) Non-Af 59 L, B UN/Creatinine Ratio 27.8 H, Glucose 103 H, Calcium 9.2, Total Bilirubin 1.00, AST 29, ALT 15, Alkaline Phosphatase 122, Total Protein 6.5, Albumin 3.7, Globulin 2.7, Albumin/Globulin Ratio 1.4 Physical Exam Const alert Constitutional Narrative: Decreased blink General Appearance: cooperative HEENT Mouth: dry mucous membranes Resp clear to auscultation bilaterally Resp Narrative: No cough with deep breathing. Cardio regular rate, regular rhythm, no murmurs and no gallops Cardio Narrative: Heart sounds are somewhat distant.......may be related to obesity/body habitus. No ectopy GI normal to inspection, nondistended, normoactive bowel sounds, soft to palpation, non-tender and non-distended GI Narrative: Obese, NT, no masses, normal BS's, not distended. Percussion: normal to percussion Rectal Exam: deferred Extremity no calf tenderness General Extremity: Negative for edema Skin Rashes: no rashes Psych cooperative Psych Narrative: Has not been agitated with staff and he is polite and talkative. Outgoing with staff. Assessment & Plan Assessment/Plan (1) Debility: (2) Stroke: QUALIFIERS: CVA mechanism: embolism Precerebral and cerebral artery: unspecified cerebral artery Qualified Code(s): I63.40 - Cerebral infarction due to embolism of unspecified cerebral artery (3) Dysarthria: (4) Cognitive dysfunction: PLAN: I suspect he has underlying dementia and there is exacerbation due to the recent stroke. He is having hallucinations also. LBD? (5) Facial droop: PLAN: minimal (6) Dysphagia: QUALIFIERS: Dysphagia type: unspecified Qualified Code(s): R13.10 - Dysphagia, unspecified PLAN: Had an EGD on 12/29/24. Dr. James suspects eosinophilic esophagitis. 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 transplanted heart: [place] heart Qualified Code(s): I25.10 - Atherosclerotic heart disease of [place] coronary artery without angina pectoris (14) Essential (primary) hypertension: (15) Hyperlipidemia: QUALIFIERS: Hyperlipidemia type: unspecified Qualified Code(s): E 78.5 - Hyperlipidemia, unspecified (16) COPD (chronic obstructive pulmonary disease): QUALIFIERS: COPD type: unspecified COPD Qualified Code(s): J44.9 - Chronic obstructive pulmonary disease, unspecified (17) Obstructive sleep apnea: PLAN: Not on CPAP. Abnormal overnight trending pulse ox. Continue O2 supplementation any time he is sleeping. (18) Chronic cough: PLAN: More likely than not due to chronic aspiration. Much improved with changes in the diet to nectar thick liquids with soft, bite size textures. (19) Schatzki's ring of distal esophagus: PLAN: Plan 1. Continue therapy 2. , Cydney, has been talking with and has given her [facility] and [facility] as possible destinations at [place] from rehab. [place] vs SNF? Family meeting scheduled for 01/04 at 1500. Will discuss current diagnoses and plans for living situation going forward. 3. No change to the drug regimen today. 4. Family is aware he will need to follow up with neurology post DC to be evaluated for dementia. Charges/Coding Visit Charges Inpatient E&M: 81264 Subs Hosp L1
[2024-12-31] MEDS: Ensure Plus High Protein 120 ML LIQUID PO (18:32)
[2024-12-31 22:00] VITALS: PULSE 62; RESP 17; O2SAT 97; BMI 36.8
[2024-12-31] MEDS: Senna/Docusate Sodium 1 Tablet 2 TABLET PO (22:18)
[2024-12-31] MEDS: Atorvastatin Calcium 40 MG Tablet PO (22:18)
[2025-01-01 05:10] VITALS: BP 117/63; PULSE 68; RESP 18; TEMP 36.3; O2SAT 97
[2025-01-01] MEDS: Ensure Plus High Protein 120 ML LIQUID PO ×3 (08:26→17:13)
[2025-01-01] MEDS: Arthritis Pain Compound 60 CLICK TUBE TOPICAL ×2 (08:26→21:33)
[2025-01-01] MEDS: Ipratropium Bromide 0.06% NASAL SPRAY 2 SPRAY NASAL ×2 (08:27→21:34)
[2025-01-01] MEDS: Polyethylene Glycol 3350 17 GM PACKET PO (08:30)
[2025-01-01] MEDS: Furosemide 40 MG Tablet PO ×2 (08:31→17:12)
[2025-01-01] MEDS: Multivitamin (Healthy Eyes) Capsule 1 CAP PO ×2 (08:31→21:34)
[2025-01-01] MEDS: Finasteride 5 MG Tablet PO (08:31)
[2025-01-01] MEDS: Cholecalciferol (VIT D3) 25 MCG TABLET (1,000 UNITS) PO (08:31)
[2025-01-01] MEDS: Ascorbic Acid 500 MG Tablet 1000 MG PO (08:31)
[2025-01-01] MEDS: Methenamine Hippurate 1 GM Tablet PO (08:31)
[2025-01-01 08:33] VITALS: BP 117/63; PULSE 68
[2025-01-01] MEDS: Metoprolol(XL)Succ 25 MG Tablet PO (08:33)
[2025-01-01] MEDS: Senna/Docusate Sodium 1 Tablet 2 TABLET PO ×2 (08:34→21:35)
[2025-01-01] MEDS: Nystatin Powder 15gm Bottle 1 APPLIC TOPICAL ×2 (08:34→21:37)
[2025-01-01 10:00] VITALS: PULSE 62; O2SAT 98
[2025-01-01 17:00] VITALS: BMI 36.8
[2025-01-01 18:00] VITALS: BP 113/80; PULSE 54; RESP 17; TEMP 36.7; O2SAT 99
[2025-01-01] MEDS: Atorvastatin Calcium 40 MG Tablet PO (21:34)
[2025-01-01 22:00] VITALS: PULSE 60; O2SAT 98; BMI 36.8
[2025-01-02 03:40] VITALS: O2SAT 99
--- NOTE | 2025-01-02 03:40 | NURSING ---
POX 99% on 2L O2.
[2025-01-02 06:00] VITALS: BP 116/59; PULSE 61; RESP 16; TEMP 37.1; O2SAT 98
[2025-01-02] MEDS: Multivitamin (Healthy Eyes) Capsule 1 CAP PO ×2 (08:37→20:40)
[2025-01-02] MEDS: Cholecalciferol (VIT D3) 25 MCG TABLET (1,000 UNITS) PO (08:37)
[2025-01-02] MEDS: Ensure Plus High Protein 120 ML LIQUID PO ×2 (08:37→17:38)
[2025-01-02] MEDS: Ascorbic Acid 500 MG Tablet 1000 MG PO (08:37)
[2025-01-02] MEDS: Arthritis Pain Compound 60 CLICK TUBE TOPICAL ×2 (08:38→20:39)
[2025-01-02] MEDS: Furosemide 40 MG Tablet PO ×2 (08:38→18:36)
[2025-01-02] MEDS: Ipratropium Bromide 0.06% NASAL SPRAY 2 SPRAY NASAL ×2 (08:38→20:59)
[2025-01-02] MEDS: Methenamine Hippurate 1 GM Tablet PO (08:38)
[2025-01-02 08:39] VITALS: PULSE 60
[2025-01-02] MEDS: Senna/Docusate Sodium 1 Tablet 2 TABLET PO ×2 (08:39→20:39)
[2025-01-02] MEDS: Metoprolol(XL)Succ 25 MG Tablet PO (08:39)
[2025-01-02] MEDS: Finasteride 5 MG Tablet PO (08:40)
[2025-01-02] MEDS: Polyethylene Glycol 3350 17 GM PACKET PO (08:40)
[2025-01-02] MEDS: Nystatin Powder 15gm Bottle 1 APPLIC TOPICAL ×2 (08:55→20:56)
[2025-01-02 17:00] VITALS: BMI 36.8
[2025-01-02 18:00] VITALS: BP 140/80; PULSE 62; RESP 18; TEMP 36.4; O2SAT 98
[2025-01-02] MEDS: Atorvastatin Calcium 40 MG Tablet PO (20:40)
[2025-01-02 23:39] VITALS: BMI 36.8
[2025-01-03 05:54] VITALS: BP 119/69; PULSE 55; RESP 18; TEMP 36.7; O2SAT 96
[2025-01-03] MEDS: Ipratropium Bromide 0.06% NASAL SPRAY 2 SPRAY NASAL ×2 (08:04→22:12)
[2025-01-03] MEDS: Arthritis Pain Compound 60 CLICK TUBE TOPICAL ×2 (08:04→22:12)
[2025-01-03] MEDS: Ensure Plus High Protein 120 ML LIQUID PO ×2 (08:04→18:42)
[2025-01-03] MEDS: Ascorbic Acid 500 MG Tablet 1000 MG PO (08:05)
[2025-01-03] MEDS: Furosemide 40 MG Tablet PO ×2 (08:05→18:42)
[2025-01-03] MEDS: Cholecalciferol (VIT D3) 25 MCG TABLET (1,000 UNITS) PO (08:05)
[2025-01-03] MEDS: Methenamine Hippurate 1 GM Tablet PO (08:05)
[2025-01-03] MEDS: Multivitamin (Healthy Eyes) Capsule 1 CAP PO ×2 (08:05→22:12)
[2025-01-03 08:06] VITALS: PULSE 60
[2025-01-03] MEDS: Finasteride 5 MG Tablet PO (08:06)
[2025-01-03] MEDS: Metoprolol(XL)Succ 25 MG Tablet PO (08:06)
[2025-01-03 10:00] VITALS: PULSE 60; O2SAT 96
--- NOTE | 2025-01-03 11:41 | PCM.PROGNOTE ---
Subjective Subjective Brayan was seen on team rounds today. His and daughter were present in the room. All questions were answered to their satisfaction. Afebrile VSS -heart rate has ranged from 54-62 over the weekend. The blood pressure has ranged from 113/80 to 140/80 (X1) mostly within goal of Less than 140/80 Maintaining appropriate oxygen saturation on RA Oral intake - FOOD good FLUIDS poor Discussed with nursing - no problems that need addressed Reviewed the THERAPY notes Medication list reviewed. D/w Dr. James the results of the esophageal bx. 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 He recommends continuing a PPI twice daily and getting manometry as an outpatient. Will have him follow-up with Dr. James postdischarge. Brayan denies FAUSTIN, lightheadedness, heartburn, N/V/abd pain. Tolerating his diet well and rarely coughing or gagging now. He is pleasant and cooperative. Objective Data Objective Data Vital Signs: Vital Signs Temp Pulse Resp BP Pulse Ox O2 Del Method O2 Flow Rate 98.0 F 60 18 119/69 96 Room Air 2 01/03/25 05:54 01/03/25 10:00 01/03/25 05:54 01/03/25 05:54 01/03/25 10:00 01/03/25 10:00 01/02/25 06:00 FiO2 21 12/29/24 09:53 Oxygen Flow Rate (L/min) 2 Oxygen Delivery Method Room Air Weight: 241 lb 13.553 oz Body Mass Index (BMI) 36.8 Intake & Output: Intake and Output for Last 24 Hours 01/01/25 01/02/25 01/03/25 23:59 23:59 23:59 Intake Total 960 / 960 840 / 890 530 / 530 Output Total 350 / 350 500 / 750 875 / 875 Balance 610 / 610 340 / 140 -345 / -345 Lab / Micro Data 12/31/24 04:44 12/31/24 04:44 Physical Exam Const alert General Appearance: cooperative Resp clear to auscultation bilaterally Resp Narrative: No cough with deep breathing. Cardio regular rate, regular rhythm, no murmurs and no gallops GI normal to inspection, nondistended, normoactive bowel sounds, soft to palpation, non-tender and non-distended Extremity no calf tenderness General Extremity: Negative for edema Skin Rashes: no rashes Neuro Neuro Narrative: speaks slowly and does not always finish his thoughts. Slow to process. No longer having staring/unresponsive episodes when I am with him. Psych cooperative Psych Narrative: Has not been agitated with staff and he is polite and talkative. Outgoing with staff. Assessment & Plan Assessment/Plan (1) Debility: (2) Stroke: QUALIFIERS: CVA mechanism: embolism Precerebral and cerebral artery: unspecified cerebral artery Qualified Code(s): I63.40 - Cerebral infarction due to embolism of unspecified cerebral artery (3) Dysarthria: (4) Cognitive dysfunction: (5) Facial droop: (6) Dysphagia: QUALIFIERS: Dysphagia type: unspecified Qualified Code(s): R13.10 - Dysphagia, unspecified (7) Cardiomyopathy: QUALIFIERS: Cardiomyopathy type: unspecified Qualified Code(s): I42.9 - Cardiomyopathy, unspecified (8) Severe concentric left ventricular hypertrophy: (9) Biatrial enlargement: (10) Falls: (11) Paroxysmal atrial fibrillation: (12) Chronic anticoagulation: (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 transplanted heart: [place] heart Qualified Code(s): I25.10 - Atherosclerotic heart disease of [place] coronary artery without angina pectoris (14) Essential (primary) hypertension: (15) Hyperlipidemia: QUALIFIERS: Hyperlipidemia type: unspecified Qualified Code(s): E78.5 - Hyperlipidemia, unspecified (16) COPD (chronic obstructive pulmonary disease): QUALIFIERS: COPD type: unspecified COPD Qualified Code(s): J44.9 - Chronic obstructive pulmonary disease, unspecified (17) Obstructive sleep apnea: (18) Chronic cough: (19) Schatzki's ring of distal esophagus: (20) Esophageal dysmotility: PLAN: Plan 1. Continue therapy 2. We discussed placement at [place] and Brayan is OK with going to [facility] at [place]. He wants to go there. 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 3. Will need follow up with neurology post [place] and also with Dr. James. Needs manometry as OP. 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 No diplopia, no FAUSTIN 4. PPI BID. Continue the present diet with thickened liquids and soft and bite size foods. 5. Anticipate DC or Friday to [facility]. 6. Check lab in the AM on Friday in preparation for DC. Also check a hemoccult stool. 7. PVR's were excellent at admission........? need for TURP? Charges/Coding Visit Charges Inpatient E&M: 33551 Subs Hosp L2
[2025-01-03 13:01] VITALS: BMI 36.8
[2025-01-03] MEDS: Nystatin Powder 15gm Bottle 1 APPLIC TOPICAL ×2 (14:00→22:13)
--- NOTE | 2025-01-03 16:20 | CASEMGMT ---
Team meeting held with pt, pt's and pt's dgt present. PT/OT/ST/SN provided updates on pt's progress. Pt is progressing with therapy, but is unable to return home at this time. Pt with diagnosis of dementia and pt is unable to care for pt at home any longer. Pt and family are agreeable to placement. SW updated that [facility] and [facility] has not made a decision yet. Pt's family requesting [facility]. Discharge date set for Sunday 01/07. [facility] previously stated they did not have beds available, but upon reexamination, they are able to accept pt on Friday. Referral cancelled to [facility]. Updated clinicals sent to [facility] who states pt will admit under a skilled level of care. MIKE will continue to follow for dc planning. JOSE L Sanchez
[2025-01-03 18:00] VITALS: BP 94/59; PULSE 57; RESP 18; TEMP 36.6; O2SAT 100
[2025-01-03 22:10] VITALS: PULSE 57; RESP 19; O2SAT 100; BMI 36.8
[2025-01-03] MEDS: Atorvastatin Calcium 40 MG Tablet PO (22:12)
[2025-01-04 06:00] VITALS: BP 104/68; PULSE 55; RESP 16; TEMP 36.2; O2SAT 97
[2025-01-04] MEDS: Cholecalciferol (VIT D3) 25 MCG TABLET (1,000 UNITS) PO (08:50)
[2025-01-04 08:51] VITALS: PULSE 67
[2025-01-04] MEDS: Arthritis Pain Compound 60 CLICK TUBE TOPICAL ×2 (08:51→20:00)
[2025-01-04] MEDS: Multivitamin (Healthy Eyes) Capsule 1 CAP PO ×2 (08:51→20:01)
[2025-01-04] MEDS: Furosemide 40 MG Tablet PO (08:51)
[2025-01-04] MEDS: Methenamine Hippurate 1 GM Tablet PO (08:51)
[2025-01-04] MEDS: Ipratropium Bromide 0.06% NASAL SPRAY 2 SPRAY NASAL ×2 (08:51→20:00)
[2025-01-04] MEDS: Finasteride 5 MG Tablet PO (08:51)
[2025-01-04] MEDS: Metoprolol(XL)Succ 25 MG Tablet PO (08:51)
[2025-01-04] MEDS: Ascorbic Acid 500 MG Tablet 1000 MG PO (08:51)
[2025-01-04] MEDS: Ensure Plus High Protein 120 ML LIQUID PO ×2 (08:52→12:00)
[2025-01-04 10:00] VITALS: PULSE 55; RESP 16; O2SAT 98
[2025-01-04] MEDS: Nystatin Powder 15gm Bottle 1 APPLIC TOPICAL ×2 (12:00→20:25)
--- NOTE | 2025-01-04 12:21 | PCM.PROGNOTE ---
Subjective Subjective Afebrile Blood pressure over the past 24 hours has ranged from 94/59 to 119/69. Heart rate has ranged from 55-67.He is on Lasix BID and Spironolactone. His only antihypertensive is Metoprolol 25 mg once daily.......this is used to control He id he goes into AF. Denies lightheadedness. No sweating or nausea when standing up and ambulating. TSH and T4 were normal on 12/23/24. Denies CP, SOB, N/V/abd pain, dysuria and calf pain. Family meeting scheduled for this afternoon to discuss all of his diagnoses and plans for DC. Plan DC Friday to [facility]. Objective Data Objective Data Vital Signs: Vital Signs Temp Pulse Resp BP Pulse Ox O2 Del Method O2 Flow Rate 97.2 F L 67 16 104/68 97 Room Air 2 01/04/25 06:00 01/04/25 08:51 01/04/25 06:00 01/04/25 06:00 01/04/25 06:00 01/04/25 06:00 01/02/25 06:00 FiO2 21 12/29/24 09:53 Oxygen Flow Rate (L/min) 2 Oxygen Delivery Method Room Air Weight: 241 lb 13.553 oz Body Mass Index (BMI) 36.8 Intake & Output: Intake and Output for Last 24 Hours 01/02/25 01/03/25 01/04/25 23:59 23:59 23:59 Intake Total 840 / 890 1270 / 1270 500 / 500 Output Total 500 / 750 1075 / 1075 200 / 200 Balance 340 / 140 195 / 195 300 / 300 Lab / Micro Data 12/31/24 04:44 12/31/24 04:44 Physical Exam Const alert General Appearance: cooperative Resp clear to auscultation bilaterally Resp Narrative: No cough with deep breathing. Cardio regular rate, regular rhythm, no murmurs and no gallops GI normal to inspection, nondistended, normoactive bowel sounds, soft to palpation, non-tender and non-distended Extremity no calf tenderness General Extremity: Negative for edema Skin Rashes: no rashes Neuro Neuro Narrative: speaks slowly and does not always finish his thoughts. Slow to process. No longer having staring/unresponsive episodes when I am with him. Psych cooperative Psych Narrative: Has not been agitated with staff and he is polite and talkative. Outgoing with staff. Assessment & Plan Assessment/Plan (1) Debility: (2) Stroke: QUALIFIERS: CVA mechanism: embolism Precerebral and cerebral artery: unspecified cerebral artery Qualified Code(s): I63.40 - Cerebral infarction due to embolism of unspecified cerebral artery (3) Dysarthria: (4) Cognitive dysfunction: (5) Facial droop: (6) Dysphagia: QUALIFIERS: Dysphagia type: unspecified Qualified Code(s): R13.10 - Dysphagia, unspecified (7) Cardiomyopathy: QUALIFIERS: Cardiomyopathy type: unspecified Qualified Code(s): I42.9 - Cardiomyopathy, unspecified (8) Severe concentric left ventricular hypertrophy: (9) Biatrial enlargement: (10) Falls: (11) Paroxysmal atrial fibrillation: (12) Chronic anticoagulation: (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 transplanted heart: [place] heart Qualified Code(s): I25.10 - Atherosclerotic heart disease of [place] coronary artery without angina pectoris (14) Essential (primary) hypertension: (15) Hyperlipidemia: QUALIFIERS: Hyperlipidemia type: unspecified Qualified Code(s): E78.5 - Hyperlipidemia, unspecified (16) COPD (chronic obstructive pulmonary disease): QUALIFIERS: COPD type: unspecified COPD Qualified Code(s): J44.9 - Chronic obstructive pulmonary disease, unspecified (17) Obstructive sleep apnea: (18) Chronic cough: (19) Schatzki's ring of distal esophagus: (20) Esophageal dysmotility: PLAN: Plan 1. Continue therapy 2. CBC, BMP, magnesium in the a.m. 3. Hemoccult stool since he is on chronic anticoagulation 4. Check 3 more post void residuals......... question need for TURP? Postvoid residuals at admission to rehab were good and he is on Proscar 5. Check orthostatics 6. Continue PPI twice daily and follow-up with Dr. James postdischarge from rehab for esophageal manometry 7. 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 TSH, cortisol prolactin all normal. No FAUSTIN, no diplopia. 8. Lasix changed to once daily in light of decreased blood pressure. Charges/Coding Visit Charges Inpatient E&M: 71775 Subs Hosp L1
[2025-01-04 12:32] VITALS: BP 118/74; BP 95/52; BP 97/56; PULSE 55; PULSE 66; PULSE 68
[2025-01-04 15:03] VITALS: BMI 36.8
[2025-01-04 18:00] VITALS: BP 113/65; PULSE 60; RESP 16; TEMP 36.4; O2SAT 98
[2025-01-04 19:50] VITALS: PULSE 60; RESP 15; O2SAT 98; BMI 36.8
[2025-01-04] MEDS: Pantoprazole Sodium 40 MG Tablet PO (20:01)
[2025-01-04] MEDS: Atorvastatin Calcium 40 MG Tablet PO (20:01)
[2025-01-05] VITALS (8 sets, daily range): BP systolic 101–116; BP diastolic 53–71; PULSE 56–63; RESP 16; TEMP 36.6–37; O2SAT 94–100; BMI 36.8
[2025-01-05 04:32] LABS: Hematocrit 37.4 % (40-54); Hemoglobin 13.1 g/dL (13.0-16.5); Mean Corpuscular Hgb 30.6 pg (27.0-32.0); Mean Corpuscular Volume 87.4 fL (80-94); Mean Platelet Vol. 10.5 fl (6.2-12.0); Platelet Count 150 K/mm3 (150-450); RBC Distribution Width CV 12.8 % (11.6-14.6); RBC Distribution Width SD 40.5 fl (35.1-43.9); Red Blood Count 4.28 M/mm3 (4.6-6.2); White Blood Count 6.3 K/mm3 (4.4-11.0)
[2025-01-05 04:58] LABS: Anion Gap 10 (5-15); BUN 30 mg/dL (4-19); BUN/Creat Ratio 26.3 RATIO (10-20); Carbon Dioxide 21.6 mmol/L (21.0-32.0); Chloride 105 mmol/L (98-108); Creatinine, Serum 1.14 mg/dL (0.70-1.20); EST Glomerular Filtration Rate 62 (>60); Estimated Creatinine Clearance 54.83 ml/min (50-250); Glucose 95 mg/dL (70-99); Magnesium 2.1 mg/dL (1.5-2.2); Potassium 4.4 mmol/L (3.3-5.1); Sodium Level 137 mmol/L (133-145)
[2025-01-05] MEDS: Ipratropium Bromide 0.06% NASAL SPRAY 2 SPRAY NASAL ×2 (08:32→19:54)
[2025-01-05] MEDS: Arthritis Pain Compound 60 CLICK TUBE TOPICAL ×2 (08:32→19:54)
[2025-01-05] MEDS: Cholecalciferol (VIT D3) 25 MCG TABLET (1,000 UNITS) PO (08:33)
[2025-01-05] MEDS: Multivitamin (Healthy Eyes) Capsule 1 CAP PO ×2 (08:33→19:54)
[2025-01-05] MEDS: Pantoprazole Sodium 40 MG Tablet PO ×2 (08:33→19:54)
[2025-01-05] MEDS: Methenamine Hippurate 1 GM Tablet PO (08:33)
[2025-01-05] MEDS: Ascorbic Acid 500 MG Tablet 1000 MG PO (08:33)
[2025-01-05] MEDS: Furosemide 40 MG Tablet PO (08:33)
[2025-01-05] MEDS: Finasteride 5 MG Tablet PO (08:33)
[2025-01-05] MEDS: Metoprolol(XL)Succ 25 MG Tablet PO (08:34)
[2025-01-05] MEDS: Nystatin Powder 15gm Bottle 1 APPLIC TOPICAL ×2 (08:34→20:08)
--- NOTE | 2025-01-05 12:25 | PCM.PROGNOTE ---
Subjective Subjective Afebrile Postvoid residuals x 3 have ranged from 88-1 74. No need for straight cath. Family tells me that the reason the TURP was being done was for recurrent UTI's......he is now on Methenamine and has not had any issues since arrival on Rehab. Blood pressure over the past 24 hours has ranged from 104/68 to 116/71. Heart rate has ranged from 55-61. Orthostatics were negative yesterday. Brayan denies lightheadedness. Maintaining appropriate saturation on room air while awake and on 2 L while sleeping at night. All lab from today was personally reviewed. The white blood cell count is normal at 6.3 and hemoglobin is normal and stable at 13.1. Platelets are within normal limits. Sodium is 137 and the potassium is stable at 4.4. The BUN is stable at 30 and creatinine is better at 1.14. GFR is 62 which is consistent with stage II chronic renal failure. It had been in the 50's but, he is doing better with fluid intake now. Calcium is normal and the magnesium is 2.1. Denies pain, SOB, lightheadedness, dysuria, calf pain, FAUSTIN and heartburn. Objective Data Objective Data Vital Signs: Vital Signs Temp Pulse Resp BP Pulse Ox O2 Del Method O2 Flow Rate 98.6 F 61 16 107/53 L 100 Room Air 1 01/05/25 06:00 01/05/25 09:10 01/05/25 06:00 01/05/25 09:10 01/05/25 06:00 01/05/25 09:57 01/05/25 06:24 FiO2 21 12/29/24 09:53 Oxygen Flow Rate (L/min) 1 Oxygen Delivery Method Room Air Weight: 241 lb 13.553 oz Body Mass Index (BMI) 36.8 Intake & Output: Intake and Output for Last 24 Hours 01/03/25 01/04/25 01/05/25 23:59 23:59 23:59 Intake Total 1270 / 1270 1100 / 1100 462 / 462 Output Total 1075 / 1075 1050 / 1050 350 / 350 Balance 195 / 195 50 / 50 112 / 112 Lab / Micro Data 01/05/25 04:24 01/05/25 04:24 Labs: Laboratory Results - last 24 hr 01/05/25 04:24: WBC 6.3, RBC 4.28 L, Hgb 13.1, Hct 37.4 L, MCV 87.4, MCH 30.6, MCHC 35.0, RDW Std Deviation 40.5, RDW Coeff of Armani 12.8, Plt Count 150, MPV 10.5, Sodium 137, Potassium 4.4, Chloride 105, Carbon Dioxide 21.6, Anion Gap 10, BUN 30 H, Creatinine 1.14, Estim Creat Clear Calc 54.83, Est GFR (MDRD) Non-Af 62, BUN/Creatinine Ratio 26.3 H, Glucose 95, Calcium 9.0, Magnesium 2.1 Physical Exam Const alert General Appearance: cooperative HEENT moist oral mucous membranes Resp normal respiratory effort and clear to auscultation bilaterally Resp Narrative: No cough with deep breathing. Effort and Inspection: Negative for tachypneic Cardio regular rate, regular rhythm, no murmurs and no gallops GI normal to inspection, nondistended, normoactive bowel sounds, soft to palpation, non-tender and non-distended Extremity no calf tenderness General Extremity: Negative for edema Skin Rashes: no rashes Neuro Neuro Narrative: speaks slowly and does not always finish his thoughts. Slow to process. No longer having staring/unresponsive episodes when I am with him. Psych cooperative Psych Narrative: Has not been agitated with staff and he is polite and talkative. Outgoing with staff. Assessment & Plan Assessment/Plan (1) Debility: (2) Stroke: QUALIFIERS: CVA mechanism: embolism Precerebral and cerebral artery: unspecified cerebral artery Qualified Code(s): I63.40 - Cerebral infarction due to embolism of unspecified cerebral artery (3) Dysarthria: (4) Cognitive dysfunction: (5) Facial droop: (6) Dysphagia: QUALIFIERS: Dysphagia type: unspecified Qualified Code(s): R13.10 - Dysphagia, unspecified (7) Cardiomyopathy: QUALIFIERS: Cardiomyopathy type: unspecified Qualified Code(s): I42.9 - Cardiomyopathy, unspecified (8) Severe concentric left ventricular hypertrophy: (9) Biatrial enlargement: (10) Falls: (11) Atherosclerotic heart disease of [place] coronary artery without angina pectoris: QUALIFIERS: [place] vs. transplanted heart: [place] heart Qualified Code(s): I25.10 - Atherosclerotic heart disease of [place] coronary artery without angina pectoris (12) Chronic cough: (13) Schatzki's ring of distal esophagus: (14) Esophageal dysmotility: PLAN: Plan 1. Continue therapy 2. Planning DC Friday to [facility]. 3. Check 3 PVR's prior to DC. 4. Recommended follow up with neurology for dementia and CVA. He will also follow up with Dr. James for manometry. 5. IF he is going to need a TURP then suggest no prolonged holding of AC Charges/Coding Visit Charges Inpatient E&M: 47775 Subs Hosp L1
[2025-01-05] MEDS: Ensure Plus High Protein 120 ML LIQUID PO ×2 (12:28→18:12)
[2025-01-05] MEDS: Senna/Docusate Sodium 1 Tablet 2 TABLET PO (19:54)
[2025-01-05] MEDS: Atorvastatin Calcium 40 MG Tablet PO (19:54)
[2025-01-06 05:45] VITALS: BP 113/57; PULSE 59; RESP 20; TEMP 36.7; O2SAT 97
[2025-01-06] MEDS: Arthritis Pain Compound 60 CLICK TUBE TOPICAL ×2 (08:57→20:39)
[2025-01-06 08:58] VITALS: PULSE 61
[2025-01-06] MEDS: Metoprolol(XL)Succ 25 MG Tablet PO (08:58)
[2025-01-06] MEDS: Methenamine Hippurate 1 GM Tablet PO (08:58)
[2025-01-06] MEDS: Furosemide 40 MG Tablet PO (08:58)
[2025-01-06] MEDS: Polyethylene Glycol 3350 17 GM PACKET PO (08:58)
[2025-01-06] MEDS: Ipratropium Bromide 0.06% NASAL SPRAY 2 SPRAY NASAL ×2 (08:58→20:39)
[2025-01-06] MEDS: Multivitamin (Healthy Eyes) Capsule 1 CAP PO ×2 (08:58→20:38)
[2025-01-06] MEDS: Finasteride 5 MG Tablet PO (08:58)
[2025-01-06] MEDS: Pantoprazole Sodium 40 MG Tablet PO ×2 (08:58→20:39)
[2025-01-06] MEDS: Senna/Docusate Sodium 1 Tablet 2 TABLET PO ×2 (08:59→20:39)
[2025-01-06] MEDS: Ascorbic Acid 500 MG Tablet 1000 MG PO (08:59)
[2025-01-06] MEDS: Ensure Plus High Protein 120 ML LIQUID PO ×2 (08:59→12:06)
[2025-01-06] MEDS: Cholecalciferol (VIT D3) 25 MCG TABLET (1,000 UNITS) PO (08:59)
[2025-01-06] MEDS: Nystatin Powder 15gm Bottle 1 APPLIC TOPICAL ×2 (09:00→20:48)
--- NOTE | 2025-01-06 10:17 | TREXTCAR_ITS ---
Diet Diet Order/Speech Therapy: INPATIENT Hospital Diet / Speech Therapy Order(s) 12/29/24 13:39 Diet: Cardiac - Heart Healthy Food consistency:: Soft & Bite Sized Liquid Consistency:: [place]/Mildly Thick Routine Orders/Code Status Enema Type: Fleetz Enema Frequency: Daily PRN Suppository Type: Dulcolax 10mg Suppository Frequency: Daily PRN Code Status: DNRCC-A (No intubation) DC O2, CPAP, BIPAP needs Home O2 Discharge instructions: Yes Type of respiratory needs?: Oxygen (2 LPM) Oxygen frequency: With Sleeping Oxygen liters per minute when sleepin LPM Therapies Weight Bearing: Full weight bearing Physical Therapy: Eval and Treat Occupational Therapy: Eval and Treat Speech Therapy: Eval and Treat Problem/Diagnosis (1) Debility: Status: Acute Code(s): R53.81 - Other malaise Plan: Due to ischemic CVA while off Anticoagulation and ASA. (2) Stroke: Status: Acute Code(s): I63.9 - Cerebral infarction, unspecified Plan: Ischemic. R frontal lobe. + hx of PAF and was off AC and ASA for planned TURP which was cancelled and AC and ASA were not restarted. Comment: R frontal ischemic CVA 12/20/24 (3) Dysarthria: Status: Acute Code(s): R47.1 - Dysarthria and anarthria Plan: This has improved somewhat while on rehab. Tends to speak slowly and speech is not as crisp as it has been in the past. Speaks softly at times. (4) Cognitive dysfunction: Status: Acute Code(s): F09 - Unspecified mental disorder due to known physiological condition Plan: Cognitive dysfunction is acute on chronic. Memory decline has been occurring over the past few years. had been doing all the finances and med management. She assists him with ADL. Scored only a 18 out of a possible on the BCAT (brief cognitive assessment tool) at admission to rehab. 1 day prior to DC the BCAT was repeated and he scored a 28/50. Comment: acute on chronic (5) Facial droop: Status: Resolved Code(s): R29.810 - Facial weakness (6) Dysphagia: Status: Chronic Code(s): R13.10 - Dysphagia, unspecified Plan: He has esophageal dysmotility and had a Schatzki's ring which was dilated by Dr. James. 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 He is going to follow-up with Dr. James for esophageal manometry. He will remain on a PPI twice daily, soft and bite-size foods with nectar thick liquids. The chronic cough he has had for the past few years resolved with adjustments to the diet. Lungs are CTA at [place] from rehab. (7) Cardiomyopathy: Status: Chronic Code(s): I42.9 - Cardiomyopathy, unspecified Plan: Most recent echocardiogram shows a 45% ejection fraction, down from 50 to 55% in the past. Was taking Lasix 40 mg BID and Aldactone at admission to rehab. PO fluid intake is only fair and the BUN/CREAT ratio is elevated. Lasix was decreased to once daily on 01/05/25 for lowish BP's. 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 The cough has almost completely resolved with changing the liquids to nectar thick and using a soft and bite-size diet. He also had dilation of a Schatzki's ring by Dr. James. (13) Schatzki's ring of distal esophagus: Status: Chronic Code(s): K22.2 - Esophageal obstruction Plan: Dilated on 12/29/[address] James (14) Esophageal dysmotility: Status: Chronic Code(s): K22.4 - Dyskinesia of esophagus Plan: esophageal biopsies showed inflammation and scarring of the esophagus from chronic dysmotility. Will follow up with Dr. James for esophageal manometry and tx. (15) Pulmonary hypertension: Status: Chronic Code(s): I27.20 - Pulmonary hypertension, unspecified Plan: PA systolic pressure estimated at 41 on most recent echocardiogram. He is known to have obstructive sleep apnea. He does not have CPAP and we have been using 2 L of nasal O2 anytime he is sleeping with good result.Since he has been wearing the oxygen with sleeping he is sleeping better and the staring/unresponsive episodes he was having at admission to rehab have resolved. (16) Prediabetes: Status: Chronic Code(s): R73.03 - Prediabetes Plan: Hemoglobin A1c was 6.0 on 12/20/2024. It was 5.8 on 07/31/2024. (17) Pituitary gland enlarged: Status: Chronic Code(s): E23.6 - Other disorders of pituitary gland Plan: Recent MRI with increasing enlargement of the pituitary with new convexity suggestive of a mass. TSH, cortisol and prolactin are all norm,al and he has no diplopia. Likely does not need any intervention at this time but, would get an MRI of the pituitary in 6 month to re-evaluate........sooner if he develops diplopia, hypothyroidism or adrenal insufficiency. (18) Cerebral mass: Status: Chronic Code(s): G93.89 - Other specified disorders of brain Plan: 2 cm mass overlying the left frontal lobe near the vertex........most compatible with a meningioma. (19) Dementia: Status: Chronic Code(s): F03.90 - Unspecified dementia, unspecified severity, without behavioral disturbance, psychotic disturbance, mood disturbance, and anxiety Plan: Suspected. Sx wax and wane during the day and he has visual hallucinations......sees mice and monkeys in his room. Possible LBD. Follow up recommended with Dr. Dee. We have not had any behavior issues after the first few days on rehab. Initially he was angry at being on rehab and trying to leave but, after the first few days he has been sleeping well and is cooperative and polite with staff. (20) Obstructive sleep apnea: Status: Chronic Code(s): G47.33 - Obstructive sleep apnea (adult) (pediatric) Plan: Was having 30-60 sec staring/unresponsive episodes when he first arrived on rehab and was having this at home even prior to the stroke. since he has been getting O2 supplementation at night we are no longer seeing this intermittent unresponsive episodes? Coincidence? Was he having absence seizures? Etiology? Will continue oxygen supplementation while sleeping. Reviewed the last sleep study he had a [facility] which was in 2019 with the sleep lab. AHI was only 5.5 but, REM % was 45%. May have an REM sleep disorder and was having absence seizures due to sleep deprivation that has resolved with oxygen supplementation at night and better sleep. Interestingly enough the BCAT went from 18 to 28.......related to better sleep? I do not think he would tolerate CPAP with his underlying cognitive dysfunction but, he should be getting oxygen supplementation at night. Comment: AHI 5.5 - not on therapy Plan 1. Planning DC Friday to [facility]. 2. Recommended follow up with neurology for dementia and CVA. 3. Follow up with Dr. James for manometry. 4. PVR's 174,151 and 80 for 48H prior to DC from rehab. No infection while on rehab. Will continue Methenamine to prophylax against infection.......this seems to be effective for him.....prior to the Methenamine he was getting frequent UTI's. 5. Repeat a overnight trending pulse ox tonight to qualify him for oxygen supplementation. The first overnight trending pulse ox showed that the O2 sat was 89% or less 16% of the time he was monitored while sleeping. Allergies/Procedures Done in Hospital Allergies levofloxacin (From Levaquin) Allergy (Verified 12/22/24 17:07) Rash peanut Allergy (Verified 12/20/24 15:40) Itching Procedures: Transthoracic Echo (Severe concentric left ventricular hypertrophy. Mild LV global systolic dysfunction. Estimated LVEF 45%. At least stage I diastolic dysfunction. There is moderate biatrial dilatation. Mild to moderate (1-2+) tricuspid valve insufficiency. Right ventricular systolic pressure estimated to be 43 mmHg) Type of Care/Length of Stay Estimated LOS: More Than 30 Days ( can no longer provide the assistance he needs at home and he is going to go to [facility] initially and then may transition to the memory unit or care ) Type of Care Needed: Skilled Rehab Potential: Fair Prognosis: Fair Additional Orders/Day of Discharge H&P will serve as current which was dated: 12/23/24 Day of Discharge: 01/07/25 Dietary and Speech Recommendations Dietitian Recommendations/Changes: Continue cardiac diet per [employer] KIN[employer] recommendations. Will order 120ml vanilla EPHP TID with medpass due to weight loss. Will monitor weight trends. Follow Up Care Please follow up with your Primary Care Physician in: has appt for 01/10 already scheduled. Please Follow Up With: Dayron Dee MD When: Appt has been scheduled for 01/18/25. Please Follow Up With: Cardiology When: Dr. Angel - in January.....has an appt scheduled. Please Follow Up With: Consuelo Hsu NP-C When: See appts listed later in this document Discharge Plan Admission Admit Date/Time: 12/22/24 16:47 Primary Reason for Your Visit: POST STROKE DEBILITY Attending Provider: Meagan Johnston Primary Care Provider: Daphne Woods Instructions Additional Instructions / Restrictions: 1. Needs O2 at 2LPM anytime he is sleeping. 2. Will need follow up with the possible meningioma and the pituitary mass/enlargement in 6 months, sooner if sx of hypothyroidism or adrenal insuffi ciency or development of diplopia. Repeat imaging should be MRI of the pituitary. 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 3. Chronic cough was due to chronic aspiration due to esophageal strictures and dysmotility. It has resolved with changing the diet to soft and bite size foods with nectar thick liquids. Small bites and alternate sips and bites. He had esophageal dilation and is going to follow up with Dr. James for additional testing. 4. He has urine retention but, nothing > 200 on PVR's. No infection while on rehab. Continue Methenamine to prophylax for UTI. Discharge Orders/Prescriptions Prescriptions: New furosemide 40 mg Tablet 40 mg PO DAILY Qty: 1 0RF atorvastatin 40 mg Tablet 40 mg PO QHS Qty: 1 0RF acetaminophen 325 mg Tablet 650 mg PO Q6H PRN PRN (Reason: Pain Score 1-10) Qty: 1 0RF sennosides-docusate sodium [Stimulant Laxative Plus] 8.6-50 mg Tablet 2 tab PO BID Qty: 1 0RF magnesium hydroxide 400 mg/5 mL Suspension 30 ml PO X1 PRN (Reason: Constipation) Qty: 30 0RF pantoprazole 40 mg Tablet,Delayed Release (Dr/Ec) 40 mg PO BID Qty: 1 0RF nystatin 100,000 unit/gram Powder 1 applic topical BID Qty: 1 0RF Protocol: *Topical Application Instructions APPLICATION INSTRUCTIONS: apply to the groin ipratropium bromide 42 mcg (0.06 %) [place],Non-Aerosol 2 spray NASAL BID Qty: 1 0RF nicotine 7 mg/24 hr Patch 24 Hour 7 mg transdermal DAILY Qty: 1 0RF Remove Patch 1 patch topical DAILY@1000 Qty: 1 0RF Continued cholecalciferol (vitamin D3) 25 mcg (1,000 unit) capsule 25 mcg PO DAILY PreserVision AREDS-2 250-90-40-1 mg capsule 1 tab PO BID Rx Instructions: administer with meals finasteride 5 mg tablet 5 mg PO DAILY nitroglycerin 0.4 mg tablet, sublingual 0.4 mg SUBLINGUAL Q5-15M PRN (Reason: CHEST PAIN ) Qty: 25 3RF Rx Instructions: do not exceed 3 doses per episode spironolactone 25 mg tablet 25 mg PO DAILY Qty: 90 3RF metoprolol succinate 25 mg tablet extended release 24 hr 25 mg PO DAILY Qty: 90 3RF methenamine hippurate 1 gram tablet 1 g PO QDAY aspirin [Adult Aspirin Regimen] 81 mg tablet,delayed release (DR/EC) 81 mg PO DAILY ascorbic acid (vitamin C) 1,000 mg capsule 1 g PO DAILY Eliquis 5 mg tablet 5 mg PO BID Qty: 60 11RF Discontinued albuterol sulfate 2.5 mg /3 mL (0.083 %) solution for nebulization 2.5 mg inhalation Q4H PRN (Reason: shortness of breath or wheezing) Qty: 75 1RF fluticasone propion-salmeterol 100-50 mcg/dose blister with device 1 ea inhalation BID atorvastatin [Lipitor] 20 mg tablet 20 mg PO QHS furosemide [Lasix] 40 mg tablet 40 mg PO BID Qty: 180 3RF Referrals / Follow Up: Vipin Angel MD [Non-Staff] - 02/17/25 2:30 pm Daphne Woods MD [Primary Care Provider] - 01/10/25 1:00 pm Dayron Dee MD [Non-Staff -Ordering Privileges] - 01/18/25 2:30 pm () Consuelo Hsu NP-C [Med Staff - Adv Practice Prof] - 01/17/25 1:00 pm Disposition Disposition (needs filled in before D/C Order can be placed): [facility] (2) Stroke Qualifiers: CVA mechanism: embolism Precerebral and cerebral artery: unspecified cerebral artery Qualified Code(s): I63.40 - Cerebral infarction due to embolism of unspecified cerebral artery (6) Dysphagia Qualifiers: Dysphagia type: unspecified Qualified Code(s): R13.10 - Dysphagia, unspecified (7) Cardiomyopathy Qualifiers: Cardiomyopathy type: unspecified Qualified Code(s): I42.9 - Cardiomyopathy, unspecified (11) Atherosclerotic heart disease of [place] coronary artery without angina pectoris Qualifiers: [place] vs. transplanted heart: [place] heart Qualified Code(s): I25.10 - Atherosclerotic heart disease of [place] coronary artery without angina pectoris (19) Dementia Qualifiers: Dementia type: unspecified type
--- NOTE | 2025-01-06 11:51 | EX.DISCHREH ---
Providers Date of Admission: 12/22/24 Date of Discharge: 01/07/25 Primary Care Physician: Dr. Daphne Woods MD Reason For Visit: STROKE Diagnosis Discharge Diagnosis (1) Debility: Status: Acute Code(s): R53.81 - Other malaise Plan: Due to ischemic CVA while off Anticoagulation and ASA. (2) Stroke: Status: Acute Code(s): I63.9 - Cerebral infarction, unspecified Qualifiers: CVA mechanism: embolism Precerebral and cerebral artery: unspecified cerebral artery Qualified Code(s): I63.40 - Cerebral infarction due to embolism of unspecified cerebral artery Plan: Ischemic. R frontal lobe. + hx of PAF and was off AC and ASA for planned TURP which was cancelled and AC and ASA were not restarted. (3) Dysarthria: Status: Acute Code(s): R47.1 - Dysarthria and anarthria Plan: This has improved somewhat while on rehab. Tends to speak slowly and speech is not as crisp as it has been in the past. Speaks softly at times. (4) Cognitive dysfunction: Status: Acute Code(s): F09 - Unspecified mental disorder due to known physiological condition Plan: Cognitive dysfunction is acute on chronic. Memory decline has been occurring over the past few years. had been doing all the finances and med management. She assists him with ADL. Scored only a 18 out of a possible on the BCAT (brief cognitive assessment tool) at admission to rehab. 1 day prior to DC the BCAT was repeated and he scored a 28/50. (5) Facial droop: Status: Resolved Code(s): R29.810 - Facial weakness (6) Dysphagia: Status: Chronic Code(s): R13.10 - Dysphagia, unspecified Qualifiers: Dysphagia type: unspecified Qualified Code(s): R13.10 - Dysphagia, unspecified Plan: He has esophageal dysmotility and had a Schatzki's ring which was dilated by Dr. James. 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 He is going to follow-up with Dr. James for esophageal manometry. He will remain on a PPI twice daily, soft and bite-size foods with nectar thick liquids. The chronic cough he has had for the past few years resolved with adjustments to the diet. Lungs are CTA at [place] from rehab. (7) Cardiomyopathy: Status: Chronic Code(s): I42.9 - Cardiomyopathy, unspecified Qualifiers: Cardiomyopathy type: unspecified Qualified Code(s): I42.9 - Cardiomyopathy, unspecified Plan: Most recent echocardiogram shows a 45% ejection fraction, down from 50 to 55% in the past. Was taking Lasix 40 mg BID and Aldactone at admission to rehab. PO fluid intake is only fair and the BUN/CREAT ratio is elevated. Lasix was decreased to once daily on 01/05/25 for lowish BP's. 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 (9) Biatrial enlargement: Status: Chronic Code(s): I51.7 - Cardiomegaly (10) Falls: Status: Chronic Code(s): R29.6 - Repeated falls (11) Atherosclerotic heart disease of [place] coronary artery without angina pectoris: Status: Chronic Code(s): I25.10 - Atherosclerotic heart disease of [place] coronary artery without angina pectoris Qualifiers: [place] vs. transplanted heart: [place] heart Qualified Code(s): I25.10 - Atherosclerotic heart disease of [place] coronary artery without angina pectoris (12) Chronic cough: Status: Resolved Code(s): R05.3 - Chronic cough Plan: Chronic cough was secondary to chronic aspiration. The cough has almost completely resolved with changing the liquids to nectar thick and using a soft and bite-size diet. He also had dilation of a Schatzki's ring by Dr. James. (13) Schatzki's ring of distal esophagus: Status: Chronic Code(s): K22.2 - Esophageal obstruction Plan: Dilated on 12/29/[address] James (14) Esophageal dysmotility: Status: Chronic Code(s): K22.4 - Dyskinesia of esophagus Plan: esophageal biopsies showed inflammation and scarring of the esophagus from chronic dysmotility. Will follow up with Dr. James for esophageal manometry and tx. (15) Pulmonary hypertension: Status: Chronic Code(s): I27.20 - Pulmonary hypertension, unspecified Plan: PA systolic pressure estimated at 41 on most recent echocardiogram. He is known to have obstructive sleep apnea. He does not have CPAP and we have been using 2 L of nasal O2 anytime he is sleeping with good result.Since he has been wearing the oxygen with sleeping he is sleeping better and the staring/unresponsive episodes he was having at admission to rehab have resolved. (16) Prediabetes: Status: Chronic Code(s): R73.03 - Prediabetes Plan: Hemoglobin A1c was 6.0 on 12/20/2024. It was 5.8 on 07/31/2024. (17) Pituitary gland enlarged: Status: Chronic Code(s): E23.6 - Other disorders of pituitary gland Plan: Recent MRI with increasing enlargement of the pituitary with new convexity suggestive of a mass. TSH, cortisol and prolactin are all norm,al and he has no diplopia. Likely does not need any intervention at this time but, would get an MRI of the pituitary in 6 month to re-evaluate........sooner if he develops diplopia, hypothyroidism or adrenal insufficiency. (18) Cerebral mass: Status: Chronic Code(s): G93.89 - Other specified disorders of brain Plan: 2 cm mass overlying the left frontal lobe near the vertex........most compatible with a meningioma. (19) Dementia: Status: Chronic Code(s): F03.90 - Unspecified dementia, unspecified severity, without behavioral disturbance, psychotic disturbance, mood disturbance, and anxiety Qualifiers: Dementia type: unspecified type Plan: Suspected. Sx wax and wane during the day and he has visual hallucinations......sees mice and monkeys in his room. Possible LBD. Follow up recommended with Dr. Dee. We have not had any behavior issues after the first few days on rehab. Initially he was angry at being on rehab and trying to leave but, after the first few days he has been sleeping well and is cooperative and polite with staff. (20) Obstructive sleep apnea: Status: Chronic Code(s): G47.33 - Obstructive sleep apnea (adult) (pediatric) Plan: Was having 30-60 sec staring/unresponsive episodes when he first arrived on rehab and was having this at home even prior to the stroke. since he has been getting O2 supplementation at night we are no longer seeing this intermittent unresponsive episodes? Coincidence? Was he having absence seizures? Etiology? Will continue oxygen supplementation while sleeping. Reviewed the last sleep study he had a [facility] which was in 2019 with the sleep lab. AHI was only 5.5 but, REM % was 45%. May have an REM sleep disorder and was having absence seizures due to sleep deprivation that has resolved with oxygen supplementation at night and better sleep. Interestingly enough the BCAT went from 18 to 28.......related to better sleep? I do not think he would tolerate CPAP with his underlying cognitive dysfunction but, he should be getting oxygen supplementation at night. the overnight trending pulse ox was repeated on the night prior to discharge from rehab and he had no desaturations and the pulse ox was within normal limits 99.9% of the time? Maybe this is due to changes in diet and resolution of aspiration/cough? Plan 1. DC to [facility] 2. Recommended follow up with neurology for dementia and CVA. 3. Follow up with Dr. James for manometry. 4. PVR's 174,151 and 80 for 48H prior to DC from rehab. No infection while on rehab. Will continue Methenamine to prophylax against infection.......this seems to be effective for him.....prior to the Methenamine he was getting frequent UTI's. ? need for a TURP? Medications at Discharge Home Medications cholecalciferol (vitamin D3) 25 mcg (1,000 unit) capsule 25 mcg PO DAILY SUPPLEMENT 06/27/20 finasteride 5 mg tablet 5 mg PO DAILY PROSTATE 06/03/22 nitroglycerin 0.4 mg sublingual tablet 0.4 mg sublingual Q5-15M PRN CHEST PAIN #25 tabs 10/31/22 aspirin 81 mg tablet,delayed release (Adult Aspirin Regimen) 81 mg PO DAILY HEART HEALTH 09/23/23 vit C 250 mg-vit E 90 mg-zinc 40 mg-copper 1 bc-flfqcp-amkkex capsule (PreserVision AREDS-2) 1 tab PO BID supplement 06/14/24 metoprolol succinate 25 mg tablet,extended release 24 hr 25 mg PO DAILY BLOOD PRESSURE #90 tabs 08/26/24 spironolactone 25 mg tablet 25 mg PO DAILY BLOOD PRESSURE #90 tabs 08/26/24 apixaban 5 mg tablet (Eliquis) 5 mg PO BID BLOOD THINNER #60 tabs 10/21/24 methenamine hippurate 1 gram tablet 1 g PO QDAY infection 12/17/24 ascorbic acid (vitamin C) 1,000 mg capsule 1 g PO DAILY vitamin 12/20/24 Remove Patch 1 patch topical DAILY@1000 #1 patch 01/06/25 acetaminophen 325 mg tablet 650 mg (2 x 325 mg) PO Q6H PRN PRN Pain Score 1-10 #1 TAB 01/06/25 atorvastatin 40 mg tablet 40 mg PO QHS #1 TAB 01/06/25 furosemide 40 mg tablet 40 mg PO DAILY #1 TAB 01/06/25 ipratropium bromide 42 mcg (0.06 %) nasal spray 2 spray NASAL BID #1 mL 01/06/25 magnesium hydroxide 400 mg/5 mL oral suspension 30 ml PO X1 PRN Constipation #30 mL 01/06/25 nicotine 7 mg/24 hr daily transdermal patch 7 mg transdermal DAILY #1 ea 01/06/25 nystatin 100,000 unit/gram topical powder 1 applic topical BID #1 g 01/06/25 pantoprazole 40 mg tablet,delayed release 40 mg PO BID #1 TAB 01/06/25 sennosides 8.6 mg-docusate sodium 50 mg tablet (Stimulant Laxative Plus) 2 tab PO BID #1 TAB 01/06/25 Hospital Course Operations None Procedures EKG (mpression: - Esophageal mucosal changes consistent with eosinophilic esophagitis. - Moderate Schatzki ring. Dilated. - No gross lesions in the entire stomach. - ) and Transthoracic echo (nterpretation Summary Severe concentric left ventricular hypertrophy. Mild LV global systolic dysfunction. Estimated LVEF 45%. At least stage I diastolic dysfunction. There is moderate biatrial dilatation. Mild to moderate (1-2+) tricuspid valve insufficiency. Right ventricular systolic pressure est) Summary of Care Provided Minutes Spent on Discharge: 48 Hospital Course: SCARLETT STEVENS, is a 89 YO M with a PMH of PAF, chronic anticoagulation with Eliquis, CAD, KARIS to the mid RCA in July of 2020), HTN, presbycusis, BPH (with frequent UTI's), renal cyst, mild untreated CHUCHO (last sleep study was in 2019), chronic cough, tobacco dependence (no longer smokes but, he chews), diastolic CHF, severe concentric left ventricular hypertrophy, biatrial enlargement, pulmonary hypertension, diverticulosis, HLD, hiatal hernia, cerebral mass (suspected meningioma), pituitary enlargement and COPD( has never had PFT's) who presented to the ED at [facility] on 12/20/24 with slurred speech, facial droop and 2 falls on that date. He had not been taking Eliquis since 12/07/24 in preparation for a urologic surgery (TURP)....surgery was cancelled but, Eliquis and ASA were never restarted. Stat CT brain showed no acute abnormalities. CTA of the head and neck showed approximately 50% narrowing of the R ICA. An incidental finding was a 2 cm enhancing lesion at the vertex of the calvarium on the left suggestive of a meningioma. He was admitted to the hospitalist service. MRI showed a small R frontal lobe focus of restricted diffusion compatible with an acute infarction. The MRI also showed a interval enlargement and convexity of the pituitary gland suspicious for an underlying lesion. Transthoracic echocardiogram showed severe concentric LV hypertrophy with a mildly reduced left ventricular ejection fraction of 45%. Diastolic dysfunction was present. There was biatrial enlargement. There was mild to moderate tricuspid regurgitation with an elevated left ventricular systolic pressure estimated at 43 consistent with mild pulmonary hypertension. Hemoglobin A1c was elevated at 6.0 which is consistent with prediabetes. Total cholesterol was 105 with an LDL of 40 and an HDL of 55. Triglycerides were 47. TSH was 0.395 on 08/01/2024. Teleneurology was consulted and recommended aspirin 81 mg daily until Eliquis was restarted on 12/23/2024. They recommended increasing atorvastatin to high intensity dosing of 40 mg Q HS. While on the hospitalist service he was seen by PT/OT/St and acute inpt rehab was recommended at [place]. He was transferred to the inpt rehab unit at [facility] on 12/22/24 for 3 hours of therapy daily to restore function/independence at or near his level prior to the ischemic CVA. At presentation to rehab Scarlett was noted to have episodes of staring lasting 30 to 60 seconds. During these episodes he was not responsive and after approximately 60 seconds he was able to speak again. He had no tonic-clonic activity. His stated that he had been having these episodes at home for a while. He also had a chronic cough for which he recently saw pulmonary medicine. They did a NIOX in the office and it was negative. They ordered pulmonary function tests but, he was admitted to the hospital for stroke prior to having the PFT's. Overnight trending pulse ox was obtained and was abnormal and showed that the pulse ox was 89% or less 16 % of the time he was monitored. He had multiple desaturations lasting > 60 sec. He was placed on O2 while sleeping. MBS was consistent with oropharyngeal dysphagia. He was placed on soft bite-size foods and nectar thick liquids. He was instructed to alternate bites and sips. After his diet was changed the chronic cough completely resolved. His lungs have been consistently CTA since the diet was changed. The staring episodes also completely resolved. I initially thought he was having absence seizures due to sleep deprivation related to untreated sleep apnea but, on the night prior to DC from rehab we repeated the overnight trending pulse ox and it was normal with no desaturations on RA? I suspect he has been aspirating at night and this lead to the coughing which may have been leading to desaturations. Now that the cough has resolved he is sleeping better and not desaturating. since the cough has resolved and he is sleeping better the BCAT improved from 18/50 at admission to 28/50 2 days prior to DC from rehab. Since he is sleeping better he no longer is angry and having outbursts. He has been pleasant and polite and is always cooperative with staff. Imaging of the brain prior to admission to rehab showed a 2 cm enhancing lesion at the vertex of the calvarium on the left that is likely a meningioma. He has known enlargement of the pituitary in the past but, it continues to get bigger and now there is a convexity. TSH, cortisol, T4 and prolactin are all normal. He has no diplopia and he denies cephalgia. I suspect the pituitary enlargement is due to a adenoma. Because of the chronic aspiration that predated the stroke and the c/o food getting stuck and causing him to regurgitate a consult was obtained with GI and he underwent an EGD on 12/29/2024. 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 There were mucosal changes including ringed esophagus, feline appearance, longitudinal furrows and small caliber esophagus noted for the entire esophagus. There was a moderate Schatzki's ring at the GE junction and this was dilated by Dr. James. Biopsies were sent. 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 He is going to follow-up with Dr. James as an outpatient for esophageal manometry. He will continue a PPI twice daily and soft/bite-size food with thickened liquids. At the time of discharge he is able to do 3 sit to stands in 30 seconds using his upper extremities to rise. The preceding week he was able to do 5 sit to stands. He is able to ascend/descend 5 steps of various heights with 2 handrails at contact-guard assist. He has ambulated up to 375 feet on various surfaces with a front wheeled walker at standby assist/contact-guard assist. He is modified independent with eating and supervision/set up for grooming, bathing, upper body dressing, toileting, toilet transfer and tub/shower transfer.. He requires minimal assistance with lower body dressing. Scarlett still has significant cognitive dysfunction and this predated the stroke. He is being referred to neurology for follow up for the stroke and evaluation for dementia. In addition to cognitive dysfunction he also has had visual hallucinations and has seen mice and monkeys in his room. His cognition does wax and wane and some days are better than others. His is no longer able to provide the amount of care he requires to be at home. He was transferred to [facility] on 01/07/25. They will assess and determine what living situation he would most benefit from intermediate. He has follow up appts scheduled with Dr. Woods (PCP), Dr. Dee (neurology) and Dr. Angel (cardiology). Physical Exam Const alert Constitutional Narrative: Sitting in the recliner at the bedside. Does not appear to be in any distress. He is pleasant and cooperative. Speech is slow and his voice does not project well. General Appearance: cooperative, comfortable, well kempt and well developed HEENT normocephalic and head/scalp atraumatic HEENT Narrative: Has BL hearing aids. Poor dentition with teeth missing, stained and appears to have caries. No halitosis. Has chewed tobacco for many years. Eyes PERRL, EOMs intact bilaterally, conjunctivae normal and no scleral icterus Eyes Narrative: No DC from the eyes and no visual field cuts. General Eye: normal appearance of both eyes Visual Acuity: other Other Details: wears eye glasses Neck supple, No nodes and no carotid bruits General: trachea midline Chest Chest: symmetrical chest wall rise Resp normal respiratory effort and no use of accessory muscles Resp Narrative: Mildly diminished throughout but, CTA. No cough with deep breathing. Chronic cough cough has resolved. Cough was secondary to chronic aspiration and he is now on a sot, bite size diet with nectar thick liquids. He alternates sips and bites and he does not cough now. Effort and Inspection: able to speak in complete sentences; Negative for tachypneic or respiratory distress Cardio regular rate, regular rhythm, no murmurs, no rub and no gallops Cardio Narrative: Heart sounds are somewhat distant.......may be related to obesity/body habitus. GI GI Narrative: Obese, NT, no masses, normal BS's, not distended. no CVA tenderness Narrative: No longer incontinent of urine. Denies dysuria Extremity no calf tenderness Extremity Narrative: TRAE hose are in place. No ankle edema. No clubbing or cyanosis Skin no jaundice General Skin Exam: no breakdown Rashes: no rashes Hair: male pattern alopecia Neuro Neuro Narrative: No tremors. No myoclonic jerks observed. Mild left facial droop (can not see as many teeth on the left side with smiling). Remainder of the cranial nerves are intact. The tongue protrudes on the midline. Pupils are equal, round and reactive to light. Extraocular muscles are intact. No nystagmus. No visual field cuts. Good shoulder shrug bilaterally. Good strength in the upper and lower extremities. Good plantar flexion and extension, equal bilaterally. No sensory deficits. No ataxia. No extinction. Mild dysarthria. Psych cooperative Psych Narrative: Having visual hallucinations. No auditory hallucinations. He is calm and pleasant and polite. No behavioral issues since the first couple days on rehab. Appearance: appropriate and well kempt Activity / Motor Behavior: appropriate eye contact Weight / BMI Weight Weight: 241 lb 13.553 oz Body Mass Index (BMI) 36.8 ABG / Lab / Microbiology Data 01/05/25 04:24 01/05/25 04:24 Indicators for Scoring Admitted with or Primary Diagnosis of CVA/Stroke: Yes Hx of CVA/Stroke: Yes Modified [place] Score MRS Score at time of Evaluation: 3-Moderate disability NIHSS NIHSS 1a. Level of Consciousness: 0 - Alert; keenly responsive 1b. LOC Questions: 0 - Answers BOTH questions correctly 1c. LOC Commands: 0 - Performs BOTH tasks correctly 2. Best Gaze: 0 - Normal 3. Visual: 0 - No visual loss 4. Facial Palsy: 1 - Minor paralysis (flattened nasolabial fold, asymmetry on smiling) 5a. Left Arm: 0 - No drift; arm holds 90 (or 45) degrees for full 10 seconds 5b. Right Arm: 0 - No drift; arm holds 90 (or 45) degrees for full 10 seconds 6a. Left Le - No drift; leg holds 30-degree position for full 5 seconds 6b. Right Le - No drift; leg holds 30-degree position for full 5 seconds 7. Limb Ataxia: 0 - Absent 8. Sensory: 0 - Normal; no sensory loss 9. Best Language: 0 - No aphasia; normal 10. Dysarthria: 1 = [id number] dysarthria; (speech is a little slurred at times......come and goes. Voice does not project well and his loses his train of thought and then starts to mumble. ) 11. Extinction and Inattention: 0 - No abnormality Total: 2 Stroke Questions Stroke Team Activated: No D/C Instructions DC O2, CPAP, BIPAP Needs RN Home O2 qualification: No Data to Display PSN CPAP & BiPAP: BiPAP & CPAP Settings per PSN Fraction of Inspired Oxygen ( 12/29/24 09:53 FIO2) Home Oxygen Instructions: Home O2 discharge Instructions Type of respiratory needs? Oxygen 01/06/25 10:39 DC Oxygen Instruction Oxygen frequency With Sleeping 01/06/25 10:39 Oxygen liters per minute when 2 LPM 01/06/25 11:51 sleeping Home O2 Discharge instructions: Yes Type of respiratory needs?: Oxygen (2 LPM) Oxygen frequency: With Sleeping Oxygen liters per minute when sleepin LPM DC home with Oxygen: No Please Follow Up With: Dayron Dee MD Meaningful Use Info Meaningful Use Meaningful Use Diagnoses (Choose all that apply): Ischemic CVA (R frontal area. Likely embolic due to AF. ) CVA Therapy Assessed for PT,OT and/or ST?: Yes Ischemic Stroke Antithrombotic order at d/c?: No Reason antithrombotic not ordered: Treatment not Indicated (Stroke due to AF and he is on an AC. ) Dx of Atrial fib/flutter?: Yes Anticoagulant at discharge?: Yes Statin Dosing Therapy Reference: STATIN DOSE THERAPY REFERENCE: * Patients > 75 years receive moderate or high dose statin therapy. * Patients 75 years or YOUNGER should receive HIGH intensity statin dose unless contraindicated. You will be required to document reason for non-treatment if statin daily dose does not meet guidelines. HIGH DOSE STATIN THERAPY DAILY Atorvastatin > than or = to 40 mg Rosuvastatin > than or = to 20 mg Amlodipine + Atorvastatin > than or = to 2.5/40 mg Ezetimibe + Simvastatin 10/80 mg Simvastatin 80mg Statins at discharge?: Yes Primary Dx Acute Ischemic CVA?: Yes IV thrombolytic ordered during stay?: No Reason IV thrombolytic not ordered: Procedure not Indicated Discharge Plan Admission Admit Date/Time: 12/22/24 16:47 Primary Reason for Your Visit: POST STROKE DEBILITY Attending Provider: Meagan Johnston Primary Care Provider: Daphne Woods Instructions Additional Instructions / Restrictions: 1. Needs O2 at 2LPM anytime he is sleeping. 2. Will need follow up with the possible meningioma and the pituitary mass/enlargement in 6 months, sooner if sx of hypothyroidism or adrenal insufficiency or development of diplopia. Repeat imaging should be MRI of the pituitary. 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 3. Chronic cough was due to chronic aspiration due to esophageal strictures and dysmotility. It has resolved with changing the diet to soft and bite size foods with nectar thick liquids. Small bites and alternate sips and bites. He had esophageal dilation and is going to follow up with Dr. James for additional testing. 4. He has urine retention but, nothing > 200 on PVR's. No infection while on rehab. Continue Methenamine to prophylax for UTI. Discharge Orders/Prescriptions Prescriptions: New furosemide 40 mg Tablet 40 mg PO DAILY Qty: 1 0RF atorvastatin 40 mg Tablet 40 mg PO QHS Qty: 1 0RF acetaminophen 325 mg Tablet 650 mg PO Q6H PRN PRN (Reason: Pain Score 1-10) Qty: 1 0RF sennosides-docusate sodium [Stimulant Laxative Plus] 8.6-50 mg Tablet 2 tab PO BID Qty: 1 0RF magnesium hydroxide 400 mg/5 mL Suspension 30 ml PO X1 PRN (Reason: Constipation) Qty: 30 0RF pantoprazole 40 mg Tablet,Delayed Release (Dr/Ec) 40 mg PO BID Qty: 1 0RF nystatin 100,000 unit/gram Powder 1 applic topical BID Qty: 1 0RF Protocol: *Topical Application Instructions APPLICATION INSTRUCTIONS: apply to the groin ipratropium bromide 42 mcg (0.06 %) [place],Non-Aerosol 2 spray NASAL BID Qty: 1 0RF nicotine 7 mg/24 hr Patch 24 Hour 7 mg transdermal DAILY Qty: 1 0RF Remove Patch 1 patch topical DAILY@1000 Qty: 1 0RF Continued cholecalciferol (vitamin D3) 25 mcg (1,000 unit) capsule 25 mcg PO DAILY PreserVision AREDS-2 250-90-40-1 mg capsule 1 tab PO BID Rx Instructions: administer with meals finasteride 5 mg tablet 5 mg PO DAILY nitroglycerin 0.4 mg tablet, sublingual 0.4 mg SUBLINGUAL Q5-15M PRN (Reason: CHEST PAIN ) Qty: 25 3RF Rx Instructions: do not exceed 3 doses per episode spironolactone 25 mg tablet 25 mg PO DAILY Qty: 90 3RF metoprolol succinate 25 mg tablet extended release 24 hr 25 mg PO DAILY Qty: 90 3RF methenamine hippurate 1 gram tablet 1 g PO QDAY aspirin [Adult Aspirin Regimen] 81 mg tablet,delayed release (DR/EC) 81 mg PO DAILY ascorbic acid (vitamin C) 1,000 mg capsule 1 g PO DAILY Eliquis 5 mg tablet 5 mg PO BID Qty: 60 11RF Discontinued albuterol sulfate 2.5 mg /3 mL (0.083 %) solution for nebulization 2.5 mg inhalation Q4H PRN (Reason: shortness of breath or wheezing) Qty: 75 1RF fluticasone propion-salmeterol 100-50 mcg/dose blister with device 1 ea inhalation BID atorvastatin [Lipitor] 20 mg tablet 20 mg PO QHS furosemide [Lasix] 40 mg tablet 40 mg PO BID Qty: 180 3RF Referrals / Follow Up: Vipin Angel MD [Non-Staff] - 02/17/25 2:30 pm Daphne Woods MD [Primary Care Provider] - 01/10/25 1:00 pm Dayron Dee MD [Non-Staff -Ordering Privileges] - 01/18/25 2:30 pm () Consuelo Hsu NP-C [Med Staff - Adv Practice Prof] - 01/17/25 1:00 pm Disposition Disposition (needs filled in before D/C Order can be placed): [facility] Facility Charges/Coding Visit Charges Inpatient E&M: 32870 Disch Hosp >30min
[2025-01-06] MEDS: Magnesium Hydroxide 30 ML UDC PO (12:05)
[2025-01-06 13:33] VITALS: BMI 36.8
--- NOTE | 2025-01-06 16:08 | CASEMGMT ---
Social Work Pt pt's and children and IDT are agreeable for discharge tomorrow to the [facility]. 7000 exemption form completed in [facility]. Discharge orders sent to [facility] via [facility]. MIKE spoke with pt's who plans to transport pt tomorrow at 1pm. Nursing and [facility] notified of dc time. No additional DC needs. DC Date: 01/07 DC Disposition: [facility] under convalescent stay JOSE L Sanchez
[2025-01-06 18:00] VITALS: BP 112/64; PULSE 64; RESP 17; TEMP 37; O2SAT 93
[2025-01-06] MEDS: Atorvastatin Calcium 40 MG Tablet PO (20:39)
--- NOTE | 2025-01-06 20:51 | NURSING ---
Per [facility] water protocol, oral care provided at 2039 and a few sips of water given with 1:1 supervision.
[2025-01-06 23:45] VITALS: PULSE 59; O2SAT 95
[2025-01-07 03:11] VITALS: BMI 36.8
[2025-01-07 05:42] VITALS: BP 111/56; PULSE 57; RESP 16; TEMP 36.7; O2SAT 96
[2025-01-07 05:43] VITALS: BMI 36.5
[2025-01-07] MEDS: Arthritis Pain Compound 60 CLICK TUBE TOPICAL (08:05)
[2025-01-07] MEDS: Cholecalciferol (VIT D3) 25 MCG TABLET (1,000 UNITS) PO (08:06)
[2025-01-07] MEDS: Multivitamin (Healthy Eyes) Capsule 1 CAP PO (08:06)
[2025-01-07] MEDS: Polyethylene Glycol 3350 17 GM PACKET PO (08:06)
[2025-01-07] MEDS: Pantoprazole Sodium 40 MG Tablet PO (08:06)
[2025-01-07] MEDS: Ensure Plus High Protein 120 ML LIQUID PO (08:06)
[2025-01-07] MEDS: Ascorbic Acid 500 MG Tablet 1000 MG PO (08:06)
[2025-01-07] MEDS: Senna/Docusate Sodium 1 Tablet 2 TABLET PO (08:06)
[2025-01-07] MEDS: Ipratropium Bromide 0.06% NASAL SPRAY 2 SPRAY NASAL (08:06)
[2025-01-07 08:07] VITALS: BP 111/56; PULSE 57
[2025-01-07] MEDS: Methenamine Hippurate 1 GM Tablet PO (08:07)
[2025-01-07] MEDS: Metoprolol(XL)Succ 25 MG Tablet PO (08:07)
[2025-01-07] MEDS: Furosemide 40 MG Tablet PO (08:07)
[2025-01-07] MEDS: Nystatin Powder 15gm Bottle 1 APPLIC TOPICAL (08:07)
[2025-01-07] MEDS: Finasteride 5 MG Tablet PO (08:08)
--- NOTE | 2025-01-07 12:30 | NURSING ---
Report called to [facility] on the Rehab unit.
[2025-01-07 12:46] VITALS: BMI 36.5
== END 2025-01-07 13:46 | disposition skilled nursing facility (03) | DRG 57 ==
PROVIDERS: Internal Medicine Gastroenterology; Admitting Provider Internal Medicine; PCP Internal Medicine; Referring Provider Internal Medicine; Visit Provider Internal Medicine
PROC: 0DJ08ZZ Inspection of Upper Intestinal Tract, Via Natural or Artificial Opening Endoscopic (ICD-10-PCS; CPT 43235; principal; 2024-12-29 10:25)
DX: I69.322 Dysarthria following cerebral infarction (principal); I42.9 Cardiomyopathy, unspecified; I13.0 Hypertensive heart and chronic kidney disease with heart failure and stage 1 through stage 4 chronic kidney disease, or unspecified chronic kidney disease; I50.32 Chronic diastolic (congestive) heart failure; Q39.6 Congenital diverticulum of esophagus; N13.8 Other obstructive and reflux uropathy; I27.23 Pulmonary hypertension due to lung diseases and hypoxia; I69.392 Facial weakness following cerebral infarction; E23.6 Other disorders of pituitary gland; K22.0 Achalasia of cardia; J44.9 Chronic obstructive pulmonary disease, unspecified; F03.90 Unspecified dementia, unspecified severity, without behavioral disturbance, psychotic disturbance, mood disturbance, and anxiety; E66.9 Obesity, unspecified; I48.0 Paroxysmal atrial fibrillation; D32.9 Benign neoplasm of meninges, unspecified; G47.33 Obstructive sleep apnea (adult) (pediatric); D35.2 Benign neoplasm of pituitary gland; I25.10 Atherosclerotic heart disease of native coronary artery without angina pectoris; E78.00 Pure hypercholesterolemia, unspecified; F17.220 Nicotine dependence, chewing tobacco, uncomplicated; F09 Unspecified mental disorder due to known physiological condition; K44.9 Diaphragmatic hernia without obstruction or gangrene; K22.2 Esophageal obstruction; K22.4 Dyskinesia of esophagus; Z95.5 Presence of coronary angioplasty implant and graft; Z79.01 Long term (current) use of anticoagulants; R73.03 Prediabetes; N40.1 Benign prostatic hyperplasia with lower urinary tract symptoms; Z79.899 Other long term (current) drug therapy; Z79.82 Long term (current) use of aspirin; Z79.51 Long term (current) use of inhaled steroids; Z68.36 Body mass index [BMI] 36.0-36.9, adult; R13.10 Dysphagia, unspecified; I51.7 Cardiomegaly
CPT/HCPCS: 36415; 73030; 74230; 80048; 80053; 82274; 82533; 83001; 83002; 83735; 84100; 84146; 84439; 84443; 84481; 85025; 85027; 85652; 86140; 88305; 92507; 92523; 92526; 92610; 92611; 94640; 94668; 94762; 97110; 97112; 97116; 97129; 97130; 97162; 97166; 97530; 97535; 97802; 97803; A4216; C1769; J0834; J2405

== ENCOUNTER → 2024-12-27 | Outpatient (CLI) | payer MEDICARE, OTHER, SELFPAY ==
[2024-09-03 08:27] VITALS: BMI 35.6
== END | disposition home or self-care (01) ==
LOC: PSN 06-01 11:52
PROVIDERS: PCP Internal Medicine; Referring Provider Nurse Practitioner Acute Care; Visit Provider Nurse Practitioner Acute Care
DX: Z53.8 Procedure and treatment not carried out for other reasons (principal)

== ENCOUNTER → 2025-07-06 | Outpatient (CLI) | payer MEDICARE, OTHER, SELFPAY ==
[2024-09-03 08:27] VITALS: BMI 35.6
[2024-11-11 14:06] LABS: Hematocrit 36.7 % (40-54); Hemoglobin 12.2 g/dL (13.0-16.5); Mean Corp Hgb Conc 33.2 g/dL (32-36); Mean Corpuscular Volume 92.4 fL (80-94); Mean Platelet Vol. 10.7 fl (6.2-12.0); Platelet Count 180 K/mm3 (150-450); RBC Distribution Width CV 13.2 % (11.6-14.6); RBC Distribution Width SD 44.5 fl (35.1-43.9); Red Blood Count 3.97 M/mm3 (4.6-6.2); White Blood Count 4.7 K/mm3 (4.4-11.0)
--- NOTE | 2024-11-11 20:47 | PAT.ANESEVAL ---
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 When Was Last Pacemaker Check QUESTION #4 FULL TEXT: You/Your Family Experience fever (hyperthermia) with Anesthesia Last Oral Intake Last Oral intake: Last Oral Intake NPO since Meds taken in AM with sips of water? 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 Female No 11/10/24 10:11 HX of Motion Sickness No 11/10/24 10:11 HX of N/V After Surgery No 11/10/24 10:11 Non-Smoker Yes 11/10/24 10:11 Duration of Surgery greater Yes 11/10/24 10:11 than 60 minutes Number of Risk Factors 2 11/10/24 10:11 PONV Score Moderate Risk 11/10/24 10:11 Height & Weight Height & Weight: Anesthesia: Height & Weight Height 5 ft 10 in 09/03/24 08:27 Respiratory Assessment Respiratory Assessment - director of hotel operations: Respiratory Tract Infection Hx - director of hotel operations Hx Respiratory Tract Infection No 11/10/24 10:11 STOP Sleep Apnea STOP Sleep Apnea - director of hotel operations: STOP Sleep Apnea - director of hotel operations Hx Hypertension Yes: CONTROLLED WITH MED 11/10/24 10:11 Hx Sleep Apnea Yes 11/10/24 10:11 CPAP No 11/10/24 10:11 BIPAP No 11/10/24 10:11 Do you snore loudly (louder than talking or can be heard Do you often feel tired/ fatigued/ sleepy during daytime? Has anyone observed you stop breathing during sleep? STOP Results Positive 11/10/24 10:11 QUESTION #5 FULL TEXT : Do you snore loudly (louder than talking or can be heard through closed doors)? 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 Specify any problems Hx of Preganancy in last 3 N/A 11/10/24 10:11 Months Nurse Filling Out Transfusion NBUCHER 11/10/24 10:11 & Questions: Date: 11/10/24 11/10/24 10:11 Time: 10:15 11/10/24 10:11 Patient unable to answer at this time (ie. 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 Hx Now No 11/10/24 10:11 Gestational Age (in weeks): EDC: Hx Hx Para Hx Section SAB No 11/10/24 10:11 [facility] Medical History (Updated 11/10/24 @ 10:22 by Carly Hopkins) Loss of hearing Ambulates with cane Cyst of kidney, acquired Prostate disease Sleep apnea Smokeless tobacco use Former smoker Right leg pain Depression Congestive heart failure (CHF) Atrial fibrillation with normal ventricular rate Hypoxia Cellulitis of leg without foot, left UTI (urinary tract infection) Chest pain Atrial fibrillation Anemia High cholesterol Shortness of breath on exertion History of echocardiogram History of stress test Olecranon bursitis, right elbow Strain of tendon of right rotator cuff Insect bite of hand with infection Wears glasses Wears hearing aid Wears partial dentures Rash Arthritis Chewing tobacco use Non-smoker History of edema Cardiology follow-up encounter Syncope and collapse Persistent atrial fibrillation Epistaxis Chronic diastolic (congestive) heart failure 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 Hyperlipidemia Essential (primary) hypertension Obstructive sleep apnea Hypersomnia Hypoxia Renal cyst Diverticulitis Leg swelling Hiatal hernia COPD (chronic obstructive pulmonary disease) Home Medications ?Medication ?Instructions ?Recorded ?Last Taken ?Type cholecalciferol (vitamin D3) 25 25 mcg PO DAILY SUPPLEMENT 06/27/20 09/22/23 History mcg (1,000 unit) capsule finasteride 5 mg tablet 5 mg PO DAILY PROSTATE 06/03/22 09/22/23 History nitroglycerin 0.4 mg sublingual 0.4 mg sublingual Q5-15M PRN CHEST 10/31/22 Unknown Rx tablet PAIN #25 tabs aspirin 81 mg tablet,delayed 81 mg PO DAILY HEART HEALTH 09/23/23 09/22/23 History release (Adult Aspirin Regimen) vit C 250 mg-vit E 90 mg-zinc 40 1 tab PO BID supplement 06/14/24 Unknown History mg-copper 1 [id number] capsule (PreserVision AREDS-2) metoprolol succinate 25 mg 25 mg PO DAILY BLOOD PRESSURE #90 08/26/24 Unknown Rx tablet,extended release 24 hr tabs spironolactone 25 mg tablet 25 mg PO DAILY BLOOD PRESSURE #90 08/26/24 Unknown Rx tabs albuterol sulfate 2.5 mg/3 mL 2.5 mg (3 mL) inhalation Q4H PRN 09/06/24 Unknown Rx (0.083 %) solution for nebulization shortness of breath or wheezing #75 mL furosemide 40 mg tablet (Lasix) 40 mg PO BID #180 tabs 09/16/24 Unknown Rx apixaban 5 mg tablet (Eliquis) 5 mg PO BID BLOOD THINNER #60 tabs 10/21/24 Unknown Rx atorvastatin 20 mg tablet (Lipitor) 20 mg PO DAILY CHOLESTEROL #90 10/21/24 Unknown Rx tabs polyethylene glycol 3350 17 gram 17 g PO DAILY 11/10/24 Unknown History oral powder packet (Miralax) Allergy/AdvReac Type Severity Reaction Status Date / Time peanut Allergy Itching Verified 11/10/24 10:04 levofloxacin (From Levaquin) AdvReac Rash Verified 11/10/24 10:04 Family History Brother Colon cancer Mother Hypertension Father Hypertension Other No pertinent family history Surgical History (Updated 11/10/24 @ 10:22 by Carly Hopkins) History of colonoscopy History of cardiac catheterization History of coronary artery stent placement (08/17/20) History of colonoscopy with polypectomy History of transurethral resection of prostate History of orchiectomy History of cataract surgery Social History household members: spouse Smoking Status: Former smoker alcohol intake: never substance use type: does not use caffeine: Yes Type: coffee Number of servings: 2 Audit: Pertinent Findings Pertinent Findings EKG Perinent findings: August 18, 2024. Atrial fibrillation with competing junctional pacemaker. Left axis deviation. Right bundle branch block. Inferior infarct cited on or before September 23, 2023. Anterior lateral infarct cited on or before September 23, 2023. Stress test pertinent findings: September 24, 2023. Ejection fraction is 53%. Rest and stress SPECT Cardiolite nuclear imaging demonstrate relative normal tracer uptake. Echo (EF%) pertinent findings: 07/31/2024. Ejection fraction 55%. No aortic valve stenosis is noted. Heart catheterization pertinent findings: August 17, 2020. Ejection fraction 55%. Left main 30% stenosis. Left anterior descending artery-moderate irregularities up to 50%. Circumflex artery?mild irregularities less than 30%. Right coronary artery is 95% stenosed in the mid RCA. August 17, 2020. Successful KARIS to the mid RCA. Consult pertinent findings: August 26, 2024. Fabian SCHROEDER. 1. Dyspnea on exertion?acute-last echo had an ejection fraction of 55%. Improved since starting to use his nebulizer. Try to titrate down Lasix to 40 mg. If shortness of breath worsens will go back up to 60. 2. History of coronary artery stent placement-PCI KARIS to the mid RCA on August 17, 2020. Continue current meds therapy. 3. Hypertension?chronic?controlled. 4. Hyponatremia-reduce Lasix to help regulate. Recommendation Anesthesia Recommendation Anesthesia recommendation: OPTIMIZED for anesthesia
[2024-11-24 10:02] VITALS: BP 96/68; PULSE 58; RESP 18; TEMP 36.2; O2SAT 99; BMI 38.0
[2024-11-24] MEDS: Lactated Ringers 1,000 ML 15 ML IV (10:26)
--- NOTE | 2024-11-24 10:46 | PRE.ANES_ITS ---
ASA Classification* ASA Classification ASA Classification: 3 Assessment & Plan Anesthesia* Anesthesia Assessment Anesthesia Assessment: Discussed sedation and/or anesthesia options, risks, benefits, and alternatives with patient/parents/legal guardian/POA. Questions invited. The patient/parents/legal guardian/POA seems to understand and agrees to proceed with anesthesia plan. Reviewed the physical assessment, medical history, allergy history and patient home medications list prior to surgery/procedure/anesthetic and documented any changes. Performed airway and anesthesia risk assessments. Procedural Plan Procedural Plan:: NOT optimized for anesthesia Add'l anesthesia plan details: The patient is in the pre-operative area, extremely wheezy. He has not seen Pulmonary since 2020. He states that he is using the nebulizer treatment every day. I discussed the case with the surgeon and we both agreed that as the case is not urgent, we should postpone the case, have the patient follow up with his PCP and Pulmonary, address the patient's COPD, OBTAIN pulmonary clearance as well as cardiac clearance, and then proceed with the case. As per the patient, his SOB treatment has been bounced between Pulmonary and Cardiology. I feel that his SOB is likely related to a combination of the two. Anesthesia Type Anesthesia Type: General Anesthesia Focused Assessment* Temperature: 97.2 F Pulse Rate: 58 Blood Pressure: 96/68 Respiratory Rate: 18 Pulse Ox: 99 Airway Assessment Mouth opens: >3 cm Mallampati Score: II Focused Labs Anesthesia Preop lab: CBC WBC 4.7 K/mm3 (4.4-11.0) 11/11/24 13:48 11/11/24 RBC 3.97 M/mm3 (4.6-6.2) L 11/11/24 13:48 11/11/24 Hgb 12.2 g/dL (13.0-16.5) L 11/11/24 13:48 5 Hct 36.7 % (40-54) L 11/11/24 13:48 11/11/24 Plt Count 180 K/mm3 (150-450) 11/11/24 13:48 11/11/24 CHEMISTRY Potassium 4.6 mmol/L (3.3-5.1) 10/11/24 13:53 10/11/24 Sodium 131 mmol/L (133-145) L 10/11/24 13:53 10/11/24 Magnesium 2.0 mg/dL (1.6-2.6) 08/09/24 15:25 08/09/24 Phosphorus 3.3 mg/dL (2.5-4.9) 08/01/24 05:46 08/01/24 BUN 27 mg/dL (4-19) H 10/11/24 13:53 10/11/24 Creatinine 1.14 mg/dL (0.70-1.20) 10/11/24 13:53 10/11/24 Glucose 96 mg/dL (70-99) 10/11/24 13:53 10/11/24 TSH 0.395 uIU/mL (0.358-3.740) 08/01/24 05:46 07/21 09/14 COAG PT 14.5 SECONDS (11.7-14.9) 08/14/20 13:48 Pre-Assessment Diagnosis/Proposed Procedure Planned Operative Procedure(s): Cysto, Transurethral Resection Prostate Anesthesia History 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 When Was Last Pacemaker Check QUESTION #4 FULL TEXT: You/Your Family Experience fever (hyperthermia) with Anesthesia Last Oral Intake Last Oral intake: Last Oral Intake NPO since 21:00 11/24/24 10:02 Meds taken in AM with sips of Yes 11/24/24 10:02 water? Meds patient instructed to take am of surgery PONV PONV - commercial credit specialist: PONV - commercial credit specialist Female No 11/10/24 10:11 HX of Motion Sickness No 11/10/24 10:11 HX of N/V After Surgery No 11/10/24 10:11 Non-Smoker Yes 11/10/24 10:11 Duration of Surgery greater Yes 11/10/24 10:11 than 60 minutes Number of Risk Factors 2 11/10/24 10:11 PONV Score Moderate Risk 11/10/24 10:11 Height & Weight Height & Weight: Anesthesia: Height & Weight Height 5 ft 10 in 11/24/24 10:02 Weight: 120.2 kg 11/24/24 10:02 Body Mass Index (BMI) 38.0 11/24/24 10:02 Respiratory Assessment Respiratory Assessment - commercial credit specialist: Respiratory Tract Infection Hx - commercial credit specialist Hx Respiratory Tract Infection No 11/10/24 10:11 STOP Sleep Apnea STOP Sleep Apnea - commercial credit specialist: STOP Sleep Apnea - commercial credit specialist Hx Hypertension Yes: CONTROLLED WITH MED 11/10/24 10:11 Hx Sleep Apnea Yes 11/10/24 10:11 CPAP No 11/10/24 10:11 BIPAP No 11/10/24 10:11 Do you snore loudly (louder than talking or can be heard Do you often feel tired/ fatigued/ sleepy during daytime? Has anyone observed you stop breathing during sleep? STOP Results Positive 11/10/24 10:11 QUESTION #5 FULL TEXT : Do you snore loudly (louder than talking or can be heard through closed doors)? 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 Specify any problems Hx of Preganancy in last 3 N/A 11/10/24 10:11 Months Nurse Filling Out Transfusion NBUCHER 11/10/24 10:11 & Questions: Date: 11/10/24 11/10/24 10:11 Time: 10:15 11/10/24 10:11 Patient unable to answer at this time (ie. confused, unrespo /Reproduction History /Reproductive History - commercial credit specialist: /Reproductive Hx- commercial credit specialist Hx Now No 11/10/24 10:11 Gestational Age (in weeks): EDC: Hx Hx Para Hx Section SAB No 11/10/24 10:11 Active Medications Active Medications: Current Medications Generic Name Dose Route Start Last Admin Trade Name Freq PRN Reason Stop Dose Admin Cefazolin Sodium 2 gm/ Sodium 110 mls @ 150 mls/hr 11/24/24 11:40 Chloride IV 11/24/24 12:23 INTRAOP ONE Lactated Ringer's 1,000 mls @ 15 mls/hr 11/24/24 09:45 11/24/24 10:26 IV 15 mls/hr .Q48H BETY Administration PFSH Medical History (Updated 11/10/24 @ 10:22 by Carly Hopkins) Loss of hearing Ambulates with cane Cyst of kidney, acquired Prostate disease Sleep apnea Smokeless tobacco use Former smoker Right leg pain Depression Congestive heart failure (CHF) Atrial fibrillation with normal ventricular rate Hypoxia Cellulitis of leg without foot, left UTI (urinary tract infection) Chest pain Atrial fibrillation Anemia High cholesterol Shortness of breath on exertion History of echocardiogram History of stress test Olecranon bursitis, right elbow Strain of tendon of right rotator cuff Insect bite of hand with infection Wears glasses Wears hearing aid Wears partial dentures Rash Arthritis Chewing tobacco use Non-smoker History of edema Cardiology follow-up encounter Syncope and collapse Persistent atrial fibrillation Epistaxis Chronic diastolic (congestive) heart failure 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 Hyperlipidemia Essential (primary) hypertension Obstructive sleep apnea Hypersomnia Hypoxia Renal cyst Diverticulitis Leg swelling Hiatal hernia COPD (chronic obstructive pulmonary disease) Home Medications ?Medication ?Instructions ?Recorded ?Last Taken ?Type cholecalciferol (vitamin D3) 25 25 mcg PO DAILY SUPPLE MENT 06/27/20 11/22/24 History mcg (1,000 unit) capsule finasteride 5 mg tablet 5 mg PO DAILY PROSTATE 06/0311/23/24 History nitroglycerin 0.4 mg sublingual 0.4 mg sublingual Q5-1 5M PRN CHEST 10/31/22 Unknown Rx tablet PAIN #25 tabs aspirin 81 mg tablet,delayed 81 mg PO DAILY HEART HEAL TH 09/23/23 11/14/24 History release (Adult Aspirin Regimen) vit C 250 mg-vit E 90 mg-zinc 40 1 tab PO BID suppleme nt 06/14/24 11/22/24 History mg-copper 1 [id number] capsule (PreserVision AREDS-2) metoprolol succinate 25 mg 25 mg PO DAILY BLOOD PRESSU RE #90 08/26/24 11/24/24 07:30 Rx tablet,extended release 24 hr tabs spironolactone 25 mg tablet 25 mg PO DAILY BLOOD PRESS URE #90 08/26/24 11/23/24 Rx tabs albuterol sulfate 2.5 mg/3 mL 2.5 mg (3 mL) inhalation Q4H PRN 09/06/24 11/23/24 Rx (0.083 %) solution for nebulization shortness of breat h or wheezing #75 mL furosemide 40 mg tablet (Lasix) 40 mg PO BID #180 tabs 09/16/24 11/23/24 Rx apixaban 5 mg tablet (Eliquis) 5 mg PO BID BLOOD THINN ER #60 tabs 10/21/24 11/19/24 Rx atorvastatin 20 mg tablet (Lipitor) 20 mg PO DAILY CHO LESTEROL #90 10/21/24 11/23/24 Rx tabs polyethylene glycol 3350 17 gram 17 g PO DAILY 5 11/23/24 History oral powder packet (Miralax) Allergy/AdvReac Type Severity Reaction Status Date / Time peanut Allergy Itching Verified 11/24/24 09:59 levofloxacin (From Levaquin) AdvReac Rash Verified 11/24/24 09:59 Family History Brother Colon cancer Mother Hypertension Father Hypertension Other No pertinent family history Surgical History (Updated 11/10/24 @ 10:22 by Carly Hopkins) History of colonoscopy History of cardiac catheterization History of coronary artery stent placement (08/17/20) History of colonoscopy with polypectomy History of transurethral resection of prostate History of orchiectomy History of cataract surgery Social History household members: spouse Smoking Status: Former smoker alcohol intake: never substance use type: does not use caffeine: Yes Type: coffee Number of servings: 2 Review of Systems (Anesthesia) ROS Narrative System reviewed and no additional complaints, except as documented.
[2024-11-24 10:48] VITALS: BP 96/68; PULSE 58; RESP 18; TEMP 36.2; O2SAT 99
--- NOTE | 2024-11-24 10:48 | NURSING ---
surgery canceled- dr kitchen and dr linares have talked with the pt and he is to follow up with pulmonology and his pcp
== END | disposition home or self-care (01) ==
LOC: PAT 13:13
PROVIDERS: Anesthesiology; PCP Internal Medicine; Referring Provider Urology; Visit Provider Urology
DX: Z01.818 Encounter for other preprocedural examination (principal)
CPT/HCPCS: 36415; 85027; 93005; J2405